=== PATIENT | female | born 1945 | race Caucasian/White ===

== ENCOUNTER → 2019-11-27 15:48 | Outpatient (BNVA) | payer MEDICARE, SELFPAY | PROVIDERS: Family Provider Family Medicine; Referring Provider Dermatology; Visit Provider Dermatology | DX: L40.9 Psoriasis, unspecified (principal); L85.3 Xerosis cutis; D18.01 Hemangioma of skin and subcutaneous tissue; L57.0 Actinic keratosis; L82.1 Other seborrheic keratosis | CPT/HCPCS: 17004; 99203; 99204 ==

== ENCOUNTER → 2020-01-28 09:42 | Outpatient (BNVA) | payer MEDICARE, SELFPAY | PROVIDERS: Family Provider Family Medicine; Visit Provider Dermatology | DX: L40.9 Psoriasis, unspecified (principal); L30.0 Nummular dermatitis | CPT/HCPCS: 87220; 99213 ==

== ENCOUNTER 2020-02-15 09:02 | Emergency (ER) | payer MEDICARE, SELFPAY ==
[2020-02-15 09:24] VITALS: BP 203/96; PULSE 54; RESP 18; TEMP 36.6; O2SAT 96; BMI 34.7
--- NOTE | 2020-02-15 09:48 | ED_ITS ---
HPI - Skin/Abscess/Foreign Bdy General: Chief complaint: Skin/Abscess/Foreign Body Stated complaint: knot on head/headache Time Seen by Provider: 02/15/20 09:38 History of Present Illness: HPI narrative: Comes in complain about a red painful rash that started on the top of her scalp is working way down the forehead right side a few days complaint: rash Onset (ago): day(s) Tetanus up to date: unsure Location: head Severity: mild Severity scale (1-10): 3 Quality: burning Pain Consistency: constant Relieving factors: none Exacerbating factors: none Context: none Associated symptoms: Reports no associated symptoms; Deny chills, fever(s), nausea or vomiting Review of Systems Const: Denies: fever(s), chills or body aches Eyes: Denies: change in vision or blurry vision ENMT: Denies: throat pain or nasal congestion Card: Reports: other (History of hypertension trolled); Denies: chest pain or dyspnea on exertion Resp: Denies: dyspnea, productive cough or non-productive cough GI: Denies: abdominal pain, nausea or vomiting Musc: Denies: extremity pain Skin/Breast: Reports: rash (Painful right side of the head scalp) Neuro: Denies: headache(s) Psych: Denies: anxiety or depression Oni/Lymph: Denies: easy bruising PFSH ED PFSH: Family History Mother Melanoma Social History Smoking and tobacco status: never smoked Alcohol intake: never History of recent travel: Yes ([place]) Out of state: Yes Physical Exam Const: COMMON NORMALS: no acute distress, average body habitus and patient oriented x3 HENMT: COMMON NORMALS: normocephalic HEAD & SCALP: normal to inspection and normocephalic FACE & SINUS: normal facial exam Eye: COMMON NORMALS: conjunctivae normal GENERAL EYE: appearance normal, both eyes and all related structures CONJUNCTIVA: Yes conjunctivae normal Neck/C-Spine: COMMON NORMALS: no JVD Chest: COMMONS NORMALS: normal inspection of the chest Resp: COMMON NORMALS: normal respiratory effort and clear to auscultation bilaterally AUSCULTATION: clear to auscultation bilaterally Cardio: COMMON NORMALS: no JVD, regular rate and regular rhythm RATE: regular rate RHYTHM: regular rhythm GI: COMMON NORMALS: Normal to inspection, nondistended, normoactive bowel sounds present Extremity: COMMON NORMALS: normal to inspection and full ROM Neuro: COMMON NORMALS: patient oriented x3 Skin: NARRATIVE SKIN EXAM: Is like rash red macular rash in clusters right side of the scalp extending down to the forehead no eye involvement noted Course Vital Signs: Vital signs: Vital Signs Temperature 97.9 F 02/15/20 09:24 Pulse Rate 58 L 02/15/20 10:08 Respiratory Rate 17 02/15/20 10:08 Blood Pressure 202/130 02/15/20 10:08 Pulse Oximetry 95 02/15/20 10:08 Discharge Plan Discharge Patient Disposition: Home Clinical Impression: Benign essential HTN Shingles Qualifiers: Herpes zoster complications: without complications Qualified Code(s): B02.9 - Zoster without complications Condition: Stable Prescriptions: New acyclovir 400 mg tablet 400 mg PO Q6H Qty: 28 RF: 0 tramadol 50 mg tablet 50 mg PO Q6H PRN (Reason: pain) Qty: 14 RF: 0 No Action propranolol 80 mg capsule,extended release 24 hr 80 mg PO DAILY RF: 0 furosemide 20 mg tablet 20 mg PO BID RF: 0 warfarin 2.5 mg tablet 2.5 mg PO DAILY RF: 0 allopurinol 300 mg tablet 300 mg PO DAILY RF: 0 atorvastatin 20 mg tablet 20 mg PO DAILY RF: 0 potassium chloride [Klor-Con 10] 10 mEq tablet extended release 10 meq PO DAILY RF: 0 irbesartan 75 mg tablet 75 mg PO DAILY RF: 0 fluticasone furoate 50 mcg/actuation blister with device INHALATION .PRN RF: 0 hydrocortisone 2.5 % cream 1 applic TOPICAL BID PRNRF: 0 mometasone 0.1 % solution 1 applic TOPICAL DAILY Qty: 60 RF: 2 triamcinolone acetonide 0.1 % ointment 1 applic TOPICAL BID Qty: 80 RF: 1 Discharge Orders: Discharge Order (Routine); Ordered 02/15/20 Ordered By: Jonny Zarate Referrals: Cassi Delarosa MD [Primary Care Provider] - Discharge Diet: Usual diet Discharge Activity: Increase activity as tolerated Patient Instructions: Herpes Zoster (ED), Chronic Hypertension (ED) Activity Restrictions/Additional Instructions: Follow-up with medical provider as directed. Take medications as prescribed. Return to the ER or your medical provider if condition worsens. Please read and understand discharge instructions. If any questions ask please. Monitor blood pressure closely while you had the shingles Discharge Date/Time: 02/15/20 10:09 Coding Level of Care Code ED Special Distribution Clerk for Hakeem Fwd Exam Comprehensive
[2020-02-15 10:03] VITALS: PULSE 55; RESP 17; O2SAT 95
[2020-02-15 10:08] VITALS: BP 202/130; PULSE 58; RESP 17; O2SAT 95
== END 2020-02-15 10:09 | disposition home or self-care (01) ==
PROVIDERS: Emergency Provider Nurse Practitioner Family; PCP Family Medicine
DX: B02.9 Zoster without complications (principal); I10 Essential (primary) hypertension; Z79.01 Long term (current) use of anticoagulants
CPT/HCPCS: 12345; 99281; 99282

== ENCOUNTER 2020-03-09 00:24 | Emergency (ER) | payer MEDICARE, SELFPAY ==
--- NOTE | 2020-03-09 00:34 | ECG_ITS ---
[facility] Test Date: 2020-03-09 Pat Name: Kadi Hernandez Department: Room: Gender: Female Leaf Blender: : 1945 Requested By: Tor Zapata Order Number: [id number] Al MD: DOMENICA CARDENAS Measurements Intervals [place] Rate: 52 P: 48 NC: 149 QRS: 50 QRSD: 96 T: 41 QT: 405 QTc: 380 Interpretive Statements SINUS BRADYCARDIA No previous ECG available for comparison Electronically Signed On 03-09-2020 20:15:11 TRACK LAYING EQUIPMENT OPERATOR by DOMENICA CARDENAS [email or web address]
--- NOTE | 2020-03-09 00:34 | XRR_ITS ---
PROCEDURE INFORMATION: Exam: XR Chest, 1 View Exam date and time: 03/09/2020 1:14 AM Age: 75 years old Clinical indication: Chest pain; Type not specified; Prior surgery; Surgery type: Hyst; Patient HX: Ruq abd pain; Additional info: Cp TECHNIQUE: Imaging protocol: XR of the chest Views: 1 view. COMPARISON: No relevant prior studies available. FINDINGS: Lungs: Unremarkable. No consolidation. Pleural space: Unremarkable. No pleural effusion. No pneumothorax. Heart/Mediastinum: The cardiac silhouette is enlarged. There is no other mediastinal widening. Bones/joints: Unremarkable. XR/XR chest 1V portable [id number] IMPRESSION: 1. Enlargement of the cardiac silhouette. 2. The lungs are clear.
[2020-03-09 00:42] VITALS: BP 219/101; PULSE 58; RESP 18; TEMP 36.4; O2SAT 98; BMI 35.6
--- NOTE | 2020-03-09 00:49 | CTR_ITS ---
PROCEDURE INFORMATION: Exam: CT Abdomen And Pelvis With Contrast Exam date and time: 03/09/2020 1:56 AM Age: 75 years old Clinical indication: Abdominal pain; Localized; Right upper quadrant (ruq); Prior surgery; Surgery date: 6+ months; Surgery type: Hyst; Additional info: Ruq pain TECHNIQUE: Imaging protocol: Computed tomography of the abdomen and pelvis with intravenous contrast. Radiation optimization: All CT scans at this facility use at least one of these dose optimization techniques: automated exposure control; mA and/or kV adjustment per patient size (includes targeted exams where dose is matched to clinical indication); or iterative reconstruction. Contrast material: VISI; Contrast volume: 95 ml; Contrast route: INTRAVENOUS (IV); COMPARISON: No relevant prior studies available. RADIATION DOSE METRICS: Total DLP (mGy-cm): 1490.46 FINDINGS: Liver: Normal. No mass. Gallbladder and bile ducts: The common bile duct is mildly prominent measuring 8 mm tapering to normal caliber within the pancreas. Pancreas: Normal. No ductal dilation. Spleen: Normal. No splenomegaly. Adrenal glands: Normal. No mass. Kidneys and ureters: There are strandy and hazy opacities present in the perinephric spaces bilaterally compatible with chronic scarring. Stomach and bowel: Unremarkable. No obstruction. No mucosal thickening. Appendix: The appendix is visualized and is normal in configuration. Intraperitoneal space: Unremarkable. No free air. No significant fluid collection. Vasculature: Unremarkable. No abdominal aortic aneurysm. Lymph nodes: Unremarkable. No enlarged lymph nodes. Urinary bladder: Unremarkable as visualized. Reproductive: Status post hysterectomy. Bones/joints: Unremarkable. No acute fracture. Soft tissues: Unremarkable. CT/CT abdomen pelvis w con* [id number] IMPRESSION: There are no acute abdominal findings. Radiation Dose CTDIVOL = (mGy): DLP = 1490.46 (mGy-cm)
--- NOTE | 2020-03-09 00:54 | W.ED.CHESTPA ---
HPI - Chest Pain General: Chief Complaint: Chest Pain Stated Complaint: cp Time Seen by Provider: 03/09/20 00:32 History of Present Illness: HPI narrative: 75-year-old female with no history of coronary disease. She does have a history of atrial fibrillation, and is on warfarin. She presents with epigastric and right upper quadrant pain that started around 4 PM yesterday. She says it is progressively worsened. She is vomited 7 times. She says she is not short of breath, but it hurts to take a deep breath. Her only belly surgery is a history of a hysterectomy. MD complaint: chest pain and other Pertinent past history: other Onset (ago): hour(s) Timing of current episode: constant and still present Prior episodes: Yes Onset: during rest Pain location: epigastric and other Pain radiation: none Severity: severe Quality: aching Relieving factors: nothing Exacerbating factors: movement Associated symptoms: Reports abdominal pain, nausea and vomiting; Deny dyspnea, fever(s) or palpitations Review of Systems Const: Denies: fever(s) Eyes: Denies: change in vision ENMT: Denies: odynophagia, epistaxis, post nasal drip or sinus pain Card: Denies: chest pain, palpitations or irregular heart rhythm Resp: Denies: dyspnea, productive cough, non-productive cough or wheezing GI: Reports: abdominal pain, nausea and vomiting; Denies: hematochezia or melena : Denies: dysuria, urinary frequency or hematuria Musc: Denies: neck pain or back pain Skin/Breast: Reports: rash; Denies: erythema Neuro: Denies: headache(s), dizziness or vertigo Psych: Denies: anxiety PFSH ED PFSH: Family History Mother Melanoma Social History Smoking and tobacco status: never smoked Alcohol intake: never History of recent travel: Yes ([place]) Out of state: Yes Physical Exam Const: GENERAL APPEARANCE: well developed and ill appearing ORIENTATION/CONSCIOUSNESS: Yes oriented to person, Yes oriented to place and Yes oriented to time HENMT: COMMON NORMALS: normocephalic, external ears normal and Normal external nose present HEAD & SCALP: normocephalic FACE & SINUS: normal facial exam NOSE: Normal external nose present and No nasal discharge present EXTERNAL EAR: Yes external ears normal Eye: COMMON NORMALS: Equal, round and reactive pupils present, EOMs intact bilaterally and conjunctivae normal EYELID: eyelids normal CONJUNCTIVA: Yes conjunctivae normal PUPIL: Yes Equal, round and reactive pupils present Neck/C-Spine: GENERAL: No tracheal deviation Chest: COMMONS NORMALS: normal inspection of the chest CHEST: No tenderness Resp: COMMON NORMALS: clear to auscultation bilaterally EFFORT & INSPECTION: No tachypneic, No respiratory distress, No retractions, No uses accessory muscles and No tracheal deviation AUSCULTATION: clear to auscultation bilaterally, no rhonchi, no wheezes and lung sounds not diminished Cardio: COMMON NORMALS: regular rate and regular rhythm RATE: regular rate RHYTHM: regular rhythm HEART SOUNDS: no murmurs PERIPHERAL PULSES: radial pulses present GI: INSPECTION: No abdominal distension AUSCULTATION: No Hyperactive bowel sounds present and No Hypoactive bowel sounds present PALPATION: Yes Tenderness to palpation present (GI) Details: RUQ, Yes Guarding due to palpation present (GI) and No Rigid due to palpation PERCUSSION: no dullness to percussion and no tympanic to percussion Neuro: SENSORIUM/ORIENTATION: Yes oriented to person, Yes oriented to place and Yes oriented to time Psych: COMMON NORMALS: mental status grossly normal Skin: NARRATIVE SKIN EXAM: Dry vesicular rash to forehead recent diagnosis of zoster. Course Vital Signs: Vital signs: Vital Signs Temperature 97.5 F L 03/09/20 00:42 Pulse Rate 48 L 03/09/20 03:56 Respiratory Rate 18 03/09/20 03:56 Blood Pressure 160/85 03/09/20 03:56 Pulse Oximetry 96 03/09/20 03:56 MDM - Chest Pain MDM Narrative: Medical decision making narrative: 75-year-old female with right upper quadrant pain and tenderness. She has also vomited. Pain nearly resolved at this point. Her nausea is resolved as well. White blood cell count is 11.7. Creatinine is 1.1. Other labs are benign. CT showed minimally increased size of common bile duct proximally with tapering distally, and no stone apparent. Ultrasound was performed and shows normal bile ducts, minimal/borderline wall thickening, no pericholecystic fluid, and no stones or sludge. She was tender over her gallbladder. With resolution of her pain, and benign labs and imaging, we will allow discharge. Close outpatient follow-up. Lab Data: Labs: Lab Results 03/09/20 03/09/20 03/09/20 Range/Units 00:55 00:55 00:55 WBC 11.7 H (4.0-10.0) 10^3/ uL RBC 3.97 L (4.1-5.3) 10^6/u L Hgb 12.4 (11.5-15.3) g/dL Hct 39.4 (37.0-47.0) % MCV 99.2 H (81-99) fL MCH 31.2 (28.0-34.0) pg MCHC 31.5 (30.0-36.0) g/dL RDW 14.3 (12.1-15.1) % Plt Count 229 (130-400) 10^3/c mm MPV 11.0 H (7.4-10.4) fL Neut % (Auto) 74.0 % Lymph % (Auto) 15.1 % [place] % (Auto) 7.8 % Eos % (Auto) 2.1 % Baso % (Auto) 0.7 % Neut # (Auto) 8.68 H (1.8-7.7) 10^3/u L Lymph # (Auto) 1.8 (0.8-4.8) 10^3/u L [place] # (Auto) 0.9 (0.2-0.9) 10^3/u L Eos # (Auto) 0.3 (0.0-0.8) 10^3/u L Baso # (Auto) 0.1 (0.0-0.1) 10^3/u L Nucleated RBC % (a uto) 0 % Nucleated RBCs # 0.0 /100WBC PT 25.10 H (12.1-14.9) SECO NDS INR 2.18 H (0.8-1.2) Sodium 139 (136-145) mmol/L Potassium 4.0 (3.5-5.1) mmol/L Chloride 101 (98-107) mmol/L Carbon Dioxide 27 (22-29) mmol/L Anion Gap 15.0 (5-19) BUN 13 (8-23) mg/dL Creatinine 1.1 H (0.5-0.9) mg/dL GFR Calculation Not Reportable Glucose 172 H (65-115) mg/dL Calculated Osmolal ity 292 (285-295) mOsm/k g Calcium 9.6 (8.5-10.5) mg/dL Total Bilirubin 0.2 (0.15-1.2) mg/dL AST 13 (0-32) U/L ALT 15 (0-33) U/L Alkaline Phosphata se 69 (35-105) IU/L Creatine Kinase 70 (26-192) U/L Troponin T Baselin e (0-10) ng/L NT-Pro-B Natriuret Pep 353 (0-450) pg/mL Total Protein 7.6 (6.6-8.7) g/dL Albumin 4.0 (3.5-5.2) g/dL Globulin 3.6 (1.3-4.6) g/dL Lipase 38 (13-60) U/L 03/09/20 Range/Units 00:55 WBC (4.0-10.0) 10^3/ uL RBC (4.1-5.3) 10^6/u L Hgb (11.5-15.3) g/dL Hct (37.0-47.0) % MCV (81-99) fL MCH (28.0-34.0) pg MCHC (30.0-36.0) g/dL RDW (12.1-15.1) % Plt Count (130-400) 10^3/c mm MPV (7.4-10.4) fL Neut % (Auto) % Lymph % (Auto) % [place] % (Auto) % Eos % (Auto) % Baso % (Auto) % Neut # (Auto) (1.8-7.7) 10^3/u L Lymph # (Auto) (0.8-4.8) 10^3/u L [place] # (Auto) (0.2-0.9) 10^3/u L Eos # (Auto) (0.0-0.8) 10^3/u L Baso # (Auto) (0.0-0.1) 10^3/u L Nucleated RBC % (a uto) % Nucleated RBCs # /100WBC PT (12.1-14.9) SECO NDS INR (0.8-1.2) Sodium (136-145) mmol/L Potassium (3.5-5.1) mmol/L Chloride (98-107) mmol/L Carbon Dioxide (22-29) mmol/L Anion Gap (5-19) BUN (8-23) mg/dL Creatinine (0.5-0.9) mg/dL GFR Calculation Glucose (65-115) mg/dL Calculated Osmolal ity (285-295) mOsm/k g Calcium (8.5-10.5) mg/dL Total Bilirubin (0.15-1.2) mg/dL AST (0-32) U/L ALT (0-33) U/L Alkaline Phosphata se (35-105) IU/L Creatine Kinase (26-192) U/L Troponin T Baselin e 13 H (0-10) ng/L NT-Pro-B Natriuret Pep (0-450) pg/mL Total Protein (6.6-8.7) g/dL Albumin (3.5-5.2) g/dL Globulin (1.3-4.6) g/dL Lipase (13-60) U/L Discharge Plan Discharge Patient Disposition: Home Clinical Impression: Biliary colic Condition: Stable Prescriptions: [place] 5-325 mg tablet 1 tab PO Q6H PRN (Reason: pain) Qty: 10 RF: 0 Zofran 4 mg tablet 4 mg PO Q6H PRN (Reason: nausea and vomiting) Qty: 10 RF: 0 No Action propranolol 80 mg capsule,extended release 24 hr 80 mg PO DAILY RF: 0 furosemide 20 mg tablet 20 mg PO BID RF: 0 warfarin 2.5 mg tablet 2.5 mg PO DAILY RF: 0 allopurinol 300 mg tablet 300 mg PO DAILY RF: 0 atorvastatin 20 mg tablet 20 mg PO DAILY RF: 0 potassium chloride [Klor-Con 10] 10 mEq tablet extended release 10 meq PO DAILY RF: 0 irbesartan 75 mg tablet 75 mg PO DAILY RF: 0 fluticasone furoate 50 mcg/actuation blister with device INHALATION .PRN RF: 0 hydrocortisone 2.5 % cream 1 applic TOPICAL BID PRNRF: 0 mometasone 0.1 % solution 1 applic TOPICAL DAILY Qty: 60 RF: 2 triamcinolone acetonide 0.1 % ointment 1 applic TOPICAL BID Qty: 80 RF: 1 acyclovir 400 mg tablet 400 mg PO Q6H Qty: 28 RF: 0 tramadol 50 mg tablet 50 mg PO Q6H PRN (Reason: pain) Qty: 14 RF: 0 Discharge Orders: Discharge Order (Routine); Ordered 03/09/20 Ordered By: Tor Heard Referrals: Cassi Delarosa MD [Primary Care Provider] - 4-7 days Discharge Diet: Advance as tolerated Discharge Activity: Increase activity as tolerated Patient Instructions: Biliary Colic (ED), Abdominal Pain (ED) Activity Restrictions/Additional Instructions: Return for worsening pain despite treatment, vomiting liquids or medications, fever greater than 100, yellowing of the skin or whites of the eyes, other concerning symptoms. Coding Level of Care Code ED Lead Software Engineer for Hakeem Fwd Exam Comprehensive
[2020-03-09] MEDS: ondansetron 2 mg/ML SDV 2 mL 4 MG IVP (00:59)
[2020-03-09] MEDS: ketorolac 30 mg/mL INJ IVP (01:00)
[2020-03-09 01:01] VITALS: RESP 18; O2SAT 97
[2020-03-09] MEDS: morphine 4 mg/mL SDV 1 mL IVP (01:01)
[2020-03-09 01:02] LABS: Basophils # 0.1 10^3/uL (0.0-0.1); Basophils % 0.7 %; Eosinophils # 0.3 10^3/uL (0.0-0.8); Eosinophils % 2.1 %; Hematocrit 39.4 % (37.0-47.0); Hemoglobin 12.4 g/dL (11.5-15.3); Lymphocytes # 1.8 10^3/uL (0.8-4.8); Lymphocytes % 15.1 %; Mean Corpuscular HGB Conc 31.5 g/dL (30.0-36.0); Mean Corpuscular Hemoglobin 31.2 pg (28.0-34.0); Mean Corpuscular Volume 99.2 fL (81-99); Monocytes # 0.9 10^3/uL (0.2-0.9); Monocytes % 7.8 %; Neutrophils # 8.68 10^3/uL (1.8-7.7); Nucleated Red Blood Cells % 0 %; Platelet Count 229 10^3/cmm (130-400); Red Blood Count 3.97 10^6/uL (4.1-5.3); Red Cell Distribution Width 14.3 % (12.1-15.1); White Blood Count 11.7 10^3/uL (4.0-10.0)
[2020-03-09 01:21] LABS: INR 2.18 (0.8-1.2)
[2020-03-09 01:26] LABS: Troponin(5th) Baseline 13 ng/L (0-10)
[2020-03-09 01:39] LABS: Alanine Aminotransferase 15 U/L (0-33); Alkaline Phosphatase 69 IU/L (35-105); Aspartate Amino Transferase 13 U/L (0-32); Blood Urea Nitrogen 13 mg/dL (8-23); Calcium 9.6 mg/dL (8.5-10.5); Carbon Dioxide 27 mmol/L (22-29); Chloride 101 mmol/L (98-107); Creatine Phosphokinase 70 U/L (26-192); Globulin 3.6 g/dL (1.3-4.6); Glucose 172 mg/dL (65-115); Lipase 38 U/L (13-60); NT Pro B Type Natriuretic Pept 353 pg/mL (0-450); Osmolality Calculated 292 mOsm/kg (285-295); Sodium 139 mmol/L (136-145); Total Bilirubin 0.2 mg/dL (0.15-1.2); Total Protein 7.6 g/dL (6.6-8.7)
[2020-03-09] MEDS: iodixanol 320 mg/mL 100mL Btl IV (02:06)
--- NOTE | 2020-03-09 02:46 | US_ITS ---
WS: [id number] ULTRASOUND ABDOMEN LIMITED CLINICAL INFORMATION: ruq pain COMPARISON: None. FINDINGS: Liver Size: Enlarged Craniocaudal length: 18.3 cm. Echogenicity: Coarse Surface nodularity: None. Mass (size and location): None. Bile ducts Intrahepatic ducts: Normal. Common bile duct diameter: 0.5 cm. Gallbladder Hydropic Gallstones: None. Gallbladder sludge: Present Gallbladder wall thickenin.1 mm Pericholecystic fluid: None. Sonographic Cao sign: Absent. Pancreas Normal as visualized. Right kidney: Normal. Hydronephrosis: None. Size: 10.0 cm x 4.7 cm x 4.1 cm. Abdominal aorta and IVC Visualized portions are normal. Ascites: None. US/US gall bladder 10119 IMPRESSION: 1. Hepatomegaly with diffuse fatty infiltration. 2. Hydropic gallbladder. Small amount of sludge in the gallbladder. Gallbladde r measures 9.3 x 4.9 x 4.6 cm mild gallbladder wall thickening measuring 4.1 mm . Gallbladder function can be further evaluated with HIDA scan. 3. No hydronephrosis in right kidney.
[2020-03-09 03:06] VITALS: BP 172/87; PULSE 49; RESP 16; O2SAT 96
[2020-03-09 03:56] VITALS: BP 160/85; PULSE 48; RESP 18; O2SAT 96
[2020-03-09 04:39] VITALS: RESP 18; O2SAT 96
[2020-03-09] MEDS: morphine 4 mg/mL SDV 1 mL 2 MG IVP (04:39)
[2020-03-09 04:44] VITALS: BP 149/79; PULSE 78; RESP 16; O2SAT 98
== END 2020-03-09 04:46 | disposition home or self-care (01) ==
PROVIDERS: Emergency Provider Emergency Medicine; PCP Family Medicine
DX: K80.50 Calculus of bile duct without cholangitis or cholecystitis without obstruction (principal); Z79.01 Long term (current) use of anticoagulants
CPT/HCPCS: 12345; 71045; 74177; 76705; 80053; 82550; 83690; 83880; 84484; 85025; 85610; 93005; 96374; 96375; 96376; 99283; 99284; J1885; J2270; J2405; Q9967

== ENCOUNTER → 2020-03-24 13:34 | Outpatient (BNVA) | payer MEDICARE, SELFPAY | PROVIDERS: PCP Family Medicine; Visit Provider Surgery | DX: Z11.59 Encounter for screening for other viral diseases (principal); K80.50 Calculus of bile duct without cholangitis or cholecystitis without obstruction | CPT/HCPCS: 87635 ==

== ENCOUNTER 2020-03-30 10:07 | Day surgery (SDC) | payer MEDICARE, SELFPAY ==
[2020-03-27 13:11] VITALS: BMI 36.6
[2020-03-30] VITALS (14 sets, daily range): BP systolic 137–170; BP diastolic 61–83; PULSE 46–60; RESP 14–21; TEMP 36.1–36.6; O2SAT 90–99
--- NOTE | 2020-03-30 10:23 | W.PM.OPSUD ---
Surgery/Procedure H&P Update DATE OF PROCEDURE: March 30, 2020 DATE H&P PERFORMED: 03/20/20 H&P UPDATE INFORMATION: I have reviewed H&P completed within last 30 days, I have examined patient prior to procedure and No changes to prior documentation PREOP DIAGNOSIS: Cholelithiasis PLANNED PROCEDURE: Operation Date: 03/30/20 11:45 Proposed Procedures p Laparoscopic poss open Cholecystectomy 08332 K80.50(Not Applicable) - Jamal Roe MD
--- NOTE | 2020-03-30 10:51 | ANES.PREANE2 ---
Pre-Anesthetic Assessment Pre-Anesthetic Assessment: Height/Weight: Height 1.57 m Weight 90.718 kg Temp Pulse Resp BP Pulse Ox 97.8 F 56 L 18 170/82 99 03/30/20 10:41 03/30/20 10:41 03/30/20 10:41 03/30/20 10:41 03/30/20 10:41 Preop Diagnosis: Cholelithiasis Proposed Procedure: Operation Date: 03/30/20 11:45 Proposed Procedures p Laparoscopic poss open Cholecystectomy 83117 K80.50(Not Applicable) - Jamal Roe MD Familial anesthetic complications: none Last intake: Intake Last Liquid Date 03/29/20 Last Liquid Time 05:30 Last Solid Date 03/29/20 Last Solid Time 05:30 Social: Social History: No alcohol and No tobacco Exam: Pre-Anes Outpt Exam: alert, oriented x 3, clear to auscultation bilaterally and regular rate & rhythm Airway: Cervical ROM: WNL MP: 2 Dentition: Full CV/HEM: CV/HEM: Afib (last took warfarin monday) and HTN Metabolic: Metabolic: Hyperlipidemia and Morbid obesity Musc/skel: Comments: gout Anesthetic Plan: ASA status: 3 Anesthesia: General Risk of > 500 ml blood loss (7ml/kg in children): No PFSH Anesthesia PFSH: Medical History (Updated 03/27/20 @ 13:11 by Leila Blandon) Atrial fibrillation Dyslipidemia Gout Melanoma Surgical History H/O colonoscopy 2016 H/O esophagogastroduodenoscopy 1977 History of carpal tunnel release History of removal of ovarian cyst S/P complete hysterectomy Family History Mother Melanoma Other CAD (coronary artery disease) Cancer Diabetes Denies family history of Anesthesia complication Bleeding disorder Social History Smoking and tobacco status: never smoked Alcohol intake: never Household members: spouse Marital status: Current occupational status: retired History of recent travel: Yes ([place]) Out of state: Yes Data Anesthesia Cardiac Studies: No Data to Display
[2020-03-30] MEDS: sodium chloride 0.9% 1,000 ML 30 ML IV ×2 (10:52→13:13)
--- NOTE | 2020-03-30 12:51 | P.OP_ITS ---
Operative Report Date of procedure: March 30, 2020 Pre-op Diagnosis: Cholelithiasis Post-op diagnosis: same Procedure Done: Laparoscopic cholecystectomy Specimens removed/disposition: Gallbladder Surgeon: Jamal Roe Anesthesia: General Condition: stable Disposition: PACU Procedure: The patient was taken to the operating room and was intubated under general anesthesia. After the antibiotic had been administered, the abdomen was prepped and draped in a sterile manner. Using a #15 blade, a 1 centimeter infraumbilical curvilinear incision was made and using an open Tye technique the peritoneal cavity was entered. A 10 millimeter port was placed and 15 millimeters of pneumoperitoneum was created. A 10 millimeter, 30 degrees scope was then introduced. Three 5 millimeter ports were placed in the epigastric, midclavicular and the anterior axillary line two fingerbreadths below the costal margin on the right side under the direct visualization. Ratcheted forceps were introduced into the lateral most port and was used to retract the fundus of the gallbladder cephalad and using forceps the infundibulum of the gallbladder was retracted laterally. Using L-hook cautery the peritoneum overlying the Calot's triangle was opened medially and laterally until the cystic duct and the cystic artery were skeletonized. During skeletization there was bleeding from the cystic artery which was controlled with placement of a clip. Dissection was carried along the body of the gallbladder and after ensuring critical view of safety, 4 clips applied on the cystic duct and 3 clips applied on the cystic artery and cut leaving, 3 clips on the remaining portion of the duct and 2 clips on the remaining portion of the artery. The rest of the gallbladder was dissected off the liver using L-hook cautery. There was no bleeding or bile le aking noted from the gallbladder fossa and the clips appeared to be in place. An EndoCatch bag was introduced to remove the gallbladder. All the ports were removed under direct visualization and there was no bleeding noted from the port sites. The fascia of the umbilicus was closed using [id number] 0 Vicryl sutures and the subcutaneous tissue was approximated using 3-0 Vicryl sutures. The skin at all four ports were closed using 4-0 Monocryl and Dermabond. A total of 10 millimeters of 0.5% Marcaine was infiltrated around the port sites. The patient was stable throughout the procedure.
[2020-03-30] MEDS: fentaNYL 50 mcg/mL INJ 2mL IVP (13:18)
--- NOTE | 2020-03-30 13:52 | SUR.PHASEI ---
1255 PT TO PACU AWAKES TO VOICE RESPONDS VERBALLY AND APPROPRIATELY TO COMMANDS , WEAK COUGH, PT HOB ELEVATED TO 40 DEGREES, PT C/O OF PAIN OF 8 OFIRMEV 1 GRAM IVPB ORDERED BY MILAGRO WILKS AT BEDSIDE 1315 PT AWAKE ALERT C/O OF (IT IS HARD TO BREATH) PT ON 3LNC PT ENCOURAGED TO COUGH , BILAT LUNGS CLEAR WITH DIMINISHED BASES WITH EXP CRACKLES. VSS ABD SOFT WITH 4 SITES D/I. IV PATENT DR FOLEY AT BEDSIDE PT STATES SHE TAKES INHALER AT HOME ALBUTERAL NEB STARTED FOR PT COMFORT, AT 8L O2 1318 PT COUGHS OCC AND C/O OF PAIN OF 8 SEE PAIN MED GIVEN
--- NOTE | 2020-03-30 13:56 | SUR.PHASEI ---
CORRECTION TO ABOVE NOTE NOZZLE CEMENT SPRAYER HELPER B DREW
[2020-03-30] MEDS: HYDROcodone-acetaminophen 5-325 mg Tablet 1 TAB PO (14:06)
--- NOTE | 2020-03-30 15:14 | ANE.PACU2 ---
Inpatient post-anesthesia follow up: Airway intact: Yes Vital signs: Temperature 97.0 F Pulse Rate 49 Respiratory Rate 18 Blood Pressure 137/76 Pulse Oximetry 94 Oxygen Delivery Me thod Nasal Cannula Oxygen Flow Rate 3 Fraction of Inspir ed Oxygen Hydration adequate: Yes Nausea and vomiting: No Pain level: 2 Mental status: Baseline
== END 2020-03-30 14:37 | disposition home or self-care (01) ==
PROVIDERS: PCP Family Medicine; Visit Provider Surgery
PROC: 0FT44ZZ Resection of Gallbladder, Percutaneous Endoscopic Approach (ICD-10-PCS; CPT 47562; principal; 2020-03-30 11:45)
DX: K80.10 Calculus of gallbladder with chronic cholecystitis without obstruction (principal); I48.91 Unspecified atrial fibrillation; Z79.01 Long term (current) use of anticoagulants; I10 Essential (primary) hypertension; E66.01 Morbid (severe) obesity due to excess calories; Z68.36 Body mass index [BMI] 36.0-36.9, adult; E78.5 Hyperlipidemia, unspecified
CPT/HCPCS: 47562; 12345; 88304; 96365; J0131; J0690; J1100; J2250; J2405; J2704; J2710; J3010; J3490; J7030; J7611

== ENCOUNTER 2020-05-01 22:34 | Emergency (ER) | payer MEDICARE, SELFPAY ==
[2020-05-01 22:36] VITALS: BP 171/92; PULSE 120; RESP 17; TEMP 36.4; O2SAT 96; BMI 34.7
--- NOTE | 2020-05-01 22:51 | XRR_ITS ---
PROCEDURE INFORMATION: Exam: XR Chest, 1 View Exam date and time: 05/01/2020 11:18 PM Age: 75 years old Clinical indication: Chest pain; Additional info: Chest pain, afib TECHNIQUE: Imaging protocol: XR of the chest Views: 1 view. COMPARISON: CR XR chest 1V portable [id number] 03/09/2020 1:41 AM FINDINGS: Lungs: Linear atelectasis or scar in the lingula. The lungs are otherwise clear. Pleural space: Unremarkable. No pleural effusion. No pneumothorax. Heart/Mediastinum: Mild cardiomegaly. Bones/joints: Unremarkable. XR/XR chest 1V portable [id number] IMPRESSION: Cardiomegaly without pulmonary edema.
--- NOTE | 2020-05-01 22:52 | ECG_ITS ---
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 Measurements Intervals Maybee Rate: 68 P: 56 SD: 150 QRS: 59 QRSD: 75 T: 53 QT: 365 QTc: 391 Interpretive Statements SINUS RHYTHM NONSPECIFIC T-WAVE ABNORMALITY Compared to ECG 03/09/2020 00:38:01 T-wave abnormality now present Sinus bradycardia no longer present Electronically Signed On 05-02-2020 16:42:56 STOVE CLEANER by Julian Pitts M.D. [id number]
--- NOTE | 2020-05-01 22:57 | W.ED.CHESTPA ---
HPI - Chest Pain General: Chief Complaint: Chest Pain Stated Complaint: believes she's experiencing AFIB Time Seen by Provider: 05/01/20 22:51 Source: patient Mode of arrival: ambulatory Limitations: no limitations History of Present Illness: HPI narrative: Mrs. Hernandez is a nice 75-year-old female who comes in with a complaint of palpitations. Patient states she is had this sensation many times in the past secondary to atrial fibrillation. Today she stated her heart rate spontaneously went into this about 2 PM. Patient states she has had this last short time before but also longer periods of time. She stated today she had chest discomfort described as a tightness. She denies any nausea vomiting, diaphoresis or worsening with exertion. Patient states most of the time she can cough or do something to help slow her heart down and her heart will go out of A. fib but she has been unable to do so today. She denies denies any syncope, or any other complaints or concerns. Associated symptoms: Reports dyspnea and palpitations; Deny abdominal pain, diaphoresis, fever(s), nausea, syncope or vomiting Review of Systems Const: Denies: fever(s), chills, body aches, fatigue, malaise or diaphoresis Eyes: Denies: change in vision, blurry vision, photophobia, eye discomfort, eye discharge, eye redness or yellow eyes ENMT: Denies: throat pain, odynophagia, hoarseness, swelling of lips/tongue, ear or mastoid pain, ear discharge, change in hearing or nasal discharge Card: Reports: chest pain, palpitations and irregular heart rhythm; Denies: edema, lightheadedness, syncope, pre-syncope, dyspnea on exertion or orthopnea Resp: Reports: dyspnea; Denies: productive cough, non-productive cough, wheezing, hemoptysis or chest congestion GI: Denies: abdominal pain, nausea, vomiting, hematemesis, coffee ground emesis, heartburn, diarrhea, constipation, GI cramping, hematochezia or melena : Denies: flank pain, dysuria, urinary frequency, urinary urgency or hematuria Musc: Denies: neck pain, back pain, extremity pain, extremity swelling, joint pain, joint swelling, joint redness, joint warmth or joint stiffness Skin/Breast: Denies: rash, pruritus, erythema, skin pain or skin tenderness Neuro: Denies: headache(s), numbness in extremities, weakness in extremities, sensory changes, lack of coordination, difficulty walking, dizziness, vertigo, confusion, Slurred speech present or seizure-like activity Oni/Lymph: Denies: easy bruising, easy bleeding, petechiae, purpura or enlarged lymph nodes All/Imm: Denies: urticaria, throat swelling, tongue swelling, facial swelling or acute wheezing PFSH ED PFSH: Medical History Atrial fibrillation Dyslipidemia Gout Melanoma Surgical History H/O colonoscopy 2016 H/O esophagogastroduodenoscopy 1977 History of carpal tunnel release History of removal of ovarian cyst S/P complete hysterectomy Status post laparoscopic cholecystectomy (03/30/20) Family History Mother Melanoma Other CAD (coronary artery disease) Cancer Diabetes Denies family history of Anesthesia complication Bleeding disorder Social History Smoking and tobacco status: never smoked Alcohol intake: never Household members: spouse Marital status: Current occupational status: retired History of recent travel: Yes ([place]) Out of state: Yes Physical Exam Const: COMMON NORMALS: no acute distress, patient oriented x3, no limitations and alert GENERAL APPEARANCE: cooperative HENMT: COMMON NORMALS: normocephalic, atraumatic, external ears normal, EAC's normal and Normal external nose present HEAD & SCALP: normal to inspection, normocephalic and atraumatic FACE & SINUS: normal facial exam and face symmetric NOSE: Normal external nose present and Normal nares present EXTERNAL EAR: Yes external ears normal EXTERNAL AUDITORY CANAL: EAC's normal MOUTH: Normal oral and palatal mucosa present, lip normal and tongue normal Eye: COMMON NORMALS: Equal, round and reactive pupils present and conjunctivae normal GENERAL EYE: appearance normal, both eyes and all related structures ALIGNMENT: Yes alignment normal PERIORBITAL: periorbital findings normal EYELID: eyelids normal CONJUNCTIVA: Yes conjunctivae normal SCLERA: sclerae normal PUPIL: Yes Equal, round and reactive pupils present Neck/C-Spine: COMMON NORMALS: full ROM, no lymphadenopathy, supple, no meningeal signs and no JVD GENERAL: Yes normal visual inspection and Yes trachea midline Chest: COMMONS NORMALS: normal inspection of the chest and normal palpation of entire chest wall Resp: COMMON NORMALS: normal respiratory effort, No retractions, No use of accessory muscles and clear to auscultation bilaterally EFFORT & INSPECTION: Yes able to speak in complete sentences and Yes symmetric chest movement AUSCULTATION: clear to auscultation bilaterally, no crackles, no rales, no rhonchi and no wheezes Cardio: COMMON NORMALS: no JVD, regular rate, regular rhythm, S1 normal heart sound present and S2 normal heart sound present RATE: regular rate RHYTHM: regular rhythm HEART SOUNDS: S1 normal heart sound present, S2 normal heart sound present, no click, no gallops, no murmurs and no rubs GI: COMMON NORMALS: Soft to palpation and No hepatosplenomegaly present PALPATION: Yes Soft to palpation, No Tenderness to palpation present (GI), No Guarding due to palpation present (GI), No Rigid due to palpation, Yes No hepatosplenomegaly present, No Hernia present, No Palpable mass present and No Pulsatile mass present : COMMON NORMALS: Yes no CVA tenderness BLADDER/KIDNEY EXAM: Yes no CVA tenderness EXTERNAL FEMALE EXAM: No Hernia present Back/Pelvis: COMMON NORMALS: no CVA tenderness, thoracic and lumbar spine normal to inspection, no thoracic nor lumbar tenderness and thoraco-lumbar ROM normal Extremity: COMMON NORMALS: normal to inspection, full ROM, capillary refill normal, no joint enlargement, no clubbing, cyanosis or edema and no calf tenderness Neuro: COMMON NORMALS: patient oriented x3, CN's II-XII intact bilaterally, moves all extremities, no focal motor deficits and no sensory deficits noted SENSORIUM/ORIENTATION: Yes alert MENINGEAL SIGNS: Yes no meningeal signs SPEECH: speech normal Psych: COMMON NORMALS: mental status grossly normal, Normal thought process present, cooperative, normal affect, speech normal and activity/motor behavior normal SPEECH: Yes normal speech THOUGHT PROCESS: Normal thought process present Skin: COMMON NORMALS: no rashes or lesions noted, turgor normal, no jaundice, no petechiae and no mottling GENERAL SKIN EXAM: no rashes or lesions noted and turgor normal Course Vital Signs: Vital signs: Vital Signs Temperature 97.6 F 05/01/20 22:36 Pulse Rate 60 05/02/20 00:27 Respiratory Rate 24 H 05/02/20 00:27 Blood Pressure 126/78 05/02/20 00:27 Pulse Oximetry 94 05/02/20 00:27 MDM - Chest Pain MDM Narrative: Medical decision making narrative: I had an extensive discussion with the patient about staying for further evaluation care which she declined. Her symptoms resolved completely when she converted out of atrial fibrillation back into her sinus rhythm. Patient attributes all of her symptoms to the A. fib. Advised the patient though that there could be things such as coronary blockage could cause this. I have explained all this to her in layman's terms and answer her questions but despite my trying to encourage her to stay the patient declines and wants to be discharged. She does understand she is free to return here at any time should she change her mind. Lab Data: Attestation: I reviewed the patient's lab results. Labs: Lab Results 05/01/20 05/01/20 05/01/20 Range/Units 23:19 23:19 23:19 WBC 9.4 (4.0-10.0) 10^3/ uL RBC 4.14 (4.1-5.3) 10^6/u L Hgb 12.7 (11.5-15.3) g/dL Hct 40.7 (37.0-47.0) % MCV 98.3 (81-99) fL MCH 30.7 (28.0-34.0) pg MCHC 31.2 (30.0-36.0) g/dL RDW 14.6 (12.1-15.1) % Plt Count 225 (130-400) 10^3/c mm MPV 12.2 H (7.4-10.4) fL Neut % (Auto) 59.1 % Lymph % (Auto) 24.9 % Zavala % (Auto) 12.3 % Eos % (Auto) 2.6 % Baso % (Auto) 0.7 % Neut # (Auto) 5.52 (1.8-7.7) 10^3/u L Lymph # (Auto) 2.3 (0.8-4.8) 10^3/u L Zavala # (Auto) 1.2 H (0.2-0.9) 10^3/u L Eos # (Auto) 0.2 (0.0-0.8) 10^3/u L Baso # (Auto) 0.1 (0.0-0.1) 10^3/u L Nucleated RBC % (a uto) 0 % Nucleated RBCs # 0.0 /100WBC PT 20.80 H (12.1-14.9) SECO NDS INR 1.72 H (0.8-1.2) Sodium 142 (136-145) mmol/L Potassium 3.8 (3.5-5.1) mmol/L Chloride 103 (98-107) mmol/L Carbon Dioxide 26 (22-29) mmol/L Anion Gap 16.8 (5-19) BUN 16 (8-23) mg/dL Creatinine 0.9 (0.5-0.9) mg/dL GFR Calculation Not Reportable Glucose 150 H (65-115) mg/dL Calculated Osmolal ity 298 H (285-295) mOsm/k g Calcium 9.2 (8.5-10.5) mg/dL Magnesium 1.9 (1.7-2.3) mg/dL Total Bilirubin 0.3 (0.15-1.2) mg/dL AST 14 (0-32) U/L ALT 13 (0-33) U/L Alkaline Phosphata se 80 (35-105) IU/L Troponin T Baselin e (0-10) ng/L Total Protein 7.3 (6.6-8.7) g/dL Albumin 3.9 (3.5-5.2) g/dL Globulin 3.4 (1.3-4.6) g/dL TSH 2.71 (0.27-4.20) uIU/ mL 05/01/20 Range/Units 23:19 WBC (4.0-10.0) 10^3/ uL RBC (4.1-5.3) 10^6/u L Hgb (11.5-15.3) g/dL Hct (37.0-47.0) % MCV (81-99) fL MCH (28.0-34.0) pg MCHC (30.0-36.0) g/dL RDW (12.1-15.1) % Plt Count (130-400) 10^3/c mm MPV (7.4-10.4) fL Neut % (Auto) % Lymph % (Auto) % Zavala % (Auto) % Eos % (Auto) % Baso % (Auto) % Neut # (Auto) (1.8-7.7) 10^3/u L Lymph # (Auto) (0.8-4.8) 10^3/u L Zavala # (Auto) (0.2-0.9) 10^3/u L Eos # (Auto) (0.0-0.8) 10^3/u L Baso # (Auto) (0.0-0.1) 10^3/u L Nucleated RBC % (a uto) % Nucleated RBCs # /100WBC PT (12.1-14.9) SECO NDS INR (0.8-1.2) Sodium (136-145) mmol/L Potassium (3.5-5.1) mmol/L Chloride (98-107) mmol/L Carbon Dioxide (22-29) mmol/L Anion Gap (5-19) BUN (8-23) mg/dL Creatinine (0.5-0.9) mg/dL GFR Calculation Glucose (65-115) mg/dL Calculated Osmolal ity (285-295) mOsm/k g Calcium (8.5-10.5) mg/dL Magnesium (1.7-2.3) mg/dL Total Bilirubin (0.15-1.2) mg/dL AST (0-32) U/L ALT (0-33) U/L Alkaline Phosphata se (35-105) IU/L Troponin T Baselin e 17 H (0-10) ng/L Total Protein (6.6-8.7) g/dL Albumin (3.5-5.2) g/dL Globulin (1.3-4.6) g/dL TSH (0.27-4.20) uIU/ mL Imaging Data^: CXR: Attestation: I personally reviewed and interpreted this imaging study as follows: My impression: No acute cardiopulmonary findings. EKG Data^: EKG 1: Attestation: I personally reviewed and interpreted this EKG as follows: EKG interpretation date: 05/01/20 EKG interpretation time: 23:01 Interpretation: Atrial fibrillation with rapid ventricular response at 116 beats a minute, normal QTC, nonspecific ST-T wave changes. EKG 2: Attestation: I personally reviewed and interpreted this EKG as follows: EKG interpretation date: 05/01/20 EKG interpretation time: 23:27 Interpretation: Normal sinus rhythm at 68 beats a minute, no blocks, normal intervals, no acute ST or T wave changes. Discharge Plan Discharge Patient Disposition: Home Clinical Impression: Atrial fibrillation with rapid ventricular response Condition: Stable Prescriptions: No Action propranolol 80 mg capsule,extended release 24 hr 80 mg PO DAILY RF: 0 furosemide 20 mg tablet 20 mg PO BID RF: 0 warfarin 2.5 mg tablet 2.5 mg PO DAILY RF: 0 allopurinol 300 mg tablet 300 mg PO DAILY RF: 0 atorvastatin 20 mg tablet 20 mg PO DAILY RF: 0 potassium chloride [Klor-Con 10] 10 mEq tablet extended release 10 meq PO DAILY RF: 0 irbesartan 75 mg tablet 75 mg PO DAILY RF: 0 Arnuity Ellipta 50 mcg/actuation blister with device 1 inh INHALATION .PRN RF: 0 hydrocortisone 2.5 % cream 1 applic TOPICAL BID PRN (Reason: Itching) RF: 0 ondansetron HCl [Zofran] 4 mg tablet 4 mg PO Q6H PRN (Reason: nausea and vomiting) Qty: 10 RF: 0 Zofran 4 mg tablet 4 mg PO Q6H PRN (Reason: nausea and vomiting) Qty: 20 RF: 0 Colace 100 mg capsule 100 mg PO BID Qty: 30 RF: 0 Discharge Orders: Discharge ED (Routine); Ordered 05/02/20 Ordered By: Valerie Thurston Referrals: Cassi Delarosa MD [Primary Care Provider] - 1-3 days Discharge Diet: Advance as tolerated Discharge Activity: Increase activity as tolerated Patient Instructions: Atrial Fibrillation (ED), Chest Pain (ED) Activity Restrictions/Additional Instructions: Please return to the ER immediately for any of the signs or symptoms listed on your discharge instruction sheets, worsening/changing of your symptoms, you are not getting better as quickly as expected, or for ANY other cause or concerns. You have been offered further evaluation and care here to include admission to further evaluate your heart but you have declined. Of course heart problems can be life-threatening so if your symptoms return, you pass out or nearly pass out, you develop chest pain, or you simply change your mind you are more than welcome to return here at any time for recheck and further evaluation and care. Be certain to follow-up with your doctor as soon as possible for recheck. Coding Level of Care Code ED Product Development Worker for Hakeem Sebastian
[2020-05-01 23:21] VITALS: BP 137/83; PULSE 65; RESP 23; O2SAT 96
--- NOTE | 2020-05-01 23:28 | PC.NURSE ---
clarified Diltiazem with ED physician. ED physician stated do not give med as pt has converted back to normal sinus rhythm.
[2020-05-01 23:34] LABS: Basophils # 0.1 10^3/uL (0.0-0.1); Basophils % 0.7 %; Eosinophils # 0.2 10^3/uL (0.0-0.8); Eosinophils % 2.6 %; Hematocrit 40.7 % (37.0-47.0); Hemoglobin 12.7 g/dL (11.5-15.3); Lymphocytes # 2.3 10^3/uL (0.8-4.8); Lymphocytes % 24.9 %; Mean Corpuscular HGB Conc 31.2 g/dL (30.0-36.0); Mean Corpuscular Hemoglobin 30.7 pg (28.0-34.0); Mean Corpuscular Volume 98.3 fL (81-99); Mean Platelet Volume 12.2 fL (7.4-10.4); Monocytes # 1.2 10^3/uL (0.2-0.9); Monocytes % 12.3 %; Neutrophils # 5.52 10^3/uL (1.8-7.7); Neutrophils % 59.1 %; Nucleated Red Blood Cells % 0 %; Platelet Count 225 10^3/cmm (130-400); Red Blood Count 4.14 10^6/uL (4.1-5.3); Red Cell Distribution Width 14.6 % (12.1-15.1); White Blood Count 9.4 10^3/uL (4.0-10.0)
[2020-05-01 23:47] LABS: INR 1.72 (0.8-1.2)
[2020-05-01 23:53] LABS: Troponin(5th) Baseline 17 ng/L (0-10)
[2020-05-02 00:01] LABS: Alanine Aminotransferase 13 U/L (0-33); Albumin Level 3.9 g/dL (3.5-5.2); Alkaline Phosphatase 80 IU/L (35-105); Anion Gap 16.8 (5-19); Aspartate Amino Transferase 14 U/L (0-32); Blood Urea Nitrogen 16 mg/dL (8-23); Calcium 9.2 mg/dL (8.5-10.5); Carbon Dioxide 26 mmol/L (22-29); Chloride 103 mmol/L (98-107); Globulin 3.4 g/dL (1.3-4.6); Glucose 150 mg/dL (65-115); Magnesium 1.9 mg/dL (1.7-2.3); Osmolality Calculated 298 mOsm/kg (285-295); Potassium 3.8 mmol/L (3.5-5.1); Sodium 142 mmol/L (136-145); Thyroid Stimulating Hormone 2.71 uIU/mL (0.27-4.20); Total Bilirubin 0.3 mg/dL (0.15-1.2); Total Protein 7.3 g/dL (6.6-8.7)
[2020-05-02 00:27] VITALS: BP 126/78; PULSE 60; RESP 24; O2SAT 94
== END 2020-05-02 00:27 | disposition home or self-care (01) ==
PROVIDERS: Emergency Provider Emergency Medicine; PCP Family Medicine
DX: I48.20 Chronic atrial fibrillation, unspecified (principal); Z79.01 Long term (current) use of anticoagulants; E78.5 Hyperlipidemia, unspecified
CPT/HCPCS: 12345; 71045; 80053; 83735; 84443; 84484; 85025; 85610; 93005; 96374; 99281; 99283

== ENCOUNTER → 2020-05-13 11:45 | Outpatient (BNVA) | payer MEDICARE, SELFPAY | PROVIDERS: PCP Family Medicine; Visit Provider Family Medicine | DX: E78.5 Hyperlipidemia, unspecified (principal); I48.91 Unspecified atrial fibrillation; G25.0 Essential tremor; M1A.9XX0 Chronic gout, unspecified, without tophus (tophi) | CPT/HCPCS: 80053; 80061; 83721; 84443; 84550; 85025; 85610 ==

== ENCOUNTER → 2020-05-20 11:33 | Outpatient (BNVA) | payer MEDICARE, SELFPAY | PROVIDERS: PCP Family Medicine; Visit Provider Family Medicine | DX: I48.91 Unspecified atrial fibrillation (principal) | CPT/HCPCS: 85610 ==

== ENCOUNTER → 2020-05-27 10:00 | Outpatient (BNVA) | payer MEDICARE, SELFPAY | PROVIDERS: PCP Family Medicine; Visit Provider Family Medicine | DX: I48.91 Unspecified atrial fibrillation (principal) | CPT/HCPCS: 85610 ==

== ENCOUNTER → 2020-06-10 08:44 | Outpatient (BNVA) | payer MEDICARE, SELFPAY | PROVIDERS: PCP Family Medicine; Visit Provider Family Medicine | DX: I48.91 Unspecified atrial fibrillation (principal) | CPT/HCPCS: 85610 ==

== ENCOUNTER 2020-10-29 09:36 | Outpatient (CLI) | payer MEDICARE, SELFPAY ==
[2020-10-29 10:07] VITALS: BMI 36.6
--- NOTE | 2020-10-29 10:15 | ECG_ITS ---
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 Interpretive Statements NAME OF STUDY: LEXISCAN SESTAMIBI STRESS TEST INDICATION: Chest Pain PROCEDURE: At the baseline, the blood pressure was 228/106 mmHg, oxygen saturation 97% with a heart rate of 68 bpm. The electrocardiogram showed normal sinus rhythm, normal axis with normal ST-T's. The Lexiscan was infused over a period of 20 seconds. A total of 0.4 milligrams of Lexiscan was infused. The stress phase was continued for a total of 5 minutes. Heart rate at the end of the stress phase was 77 bpm, oxygen saturation 97% with a blood pressure of 214/99 mmHg. The EKG at the peak infusion revealed no significant ST-T wave changes. Sestamibi was injected 20 seconds after the Lexiscan infusion. Blood pressure at the end of the recovery phase was 199/88 mmHg, oxygen saturation 97% with a heart rate of 77 beats per minute. CONCLUSION: 1. No significant EKG changes with the LexiScan infusion 2. No LexiScan induced chest pain or cardiac arrhythmia. 3. Baseline hypertension with normal blood pressure and heart rate response. 4. Sestamibi/sestamibi perfusion scan pending; see separate report. RESULTS TO TELLY CHRISTOPHER Electronically Signed On 11-02-2020 13:11:21 CDT by Malgorzata Thurston M.D. [id number]
--- NOTE | 2020-10-29 10:16 | NMCV_ITS ---
NM airam perf SPECT r/s* [id number] Kadi Hernandez Age: 75 Gender: F : 1945 Exam Date: 10/29/2020 11:02 Ordering Phys: Malgorzata Thurston MD ([email or web address]) Technologist: JIE Conteh Exam Location: [facility] Indications: CHEST PAIN; ATHEROSCLEROTIC HEART DISEASE; A FIB STRESS TEST Please see separate stress test report in [facility] for full findings IMAGE PROTOCOL Rest/Stress 1 Lexiscan Day Radiopharmaceutical Dose (mCi) Administration Site Administered by Rest: Tc-99m 11.0 IV JIE Conteh Sestamibi Stress:Tc-99m 32.7 IV JIE Espan[place] Sestamibi Rest: 29-Oct-2020 60 Discovery 630 Stress: 29-Oct-2020 30 Discovery 630 0.4mg Lexiscan. Images obtained in supine and prone position. SPECT RESULTS Technical Quality: Excellent Raw Data Analysis: Normal Image Corrections: No attenuation or motion correction applied Summed Stress Score: 0 Summed Rest Score: 0 Summed Difference Score: 0 PERFUSION FINDINGS Small size perfusion abnormality of mild to moderate severity of mid anterior and apical septal marquez with somewhat improved tracer uptake on stress images. FUNCTIONAL RESULTS (calculated via Gated SPECT) Stress Image LV EF (%): 75 Stress EDV (mL):77 TID: 0.9 Stress ESV (mL):19 FUNCTIONAL FINDINGS: The left ventricle is normal in size. Transient Ischemia Dilatation of 0.9. There is normal left ventricular systolic function. The left ventricular ejection fraction is normal with a value of 75%. There is normal left ventricular wall thickening with no regional wall motion abnormality. Normal end-diastolic end-systolic volumes. IMPRESSIONS 1. Myocardial perfusion imaging is normal. Breast attenuation artifact noted in mid anterior and apical septal marquez. 2. Overall left ventricular systolic function is normal without regional wall motion abnormalities. 3. The left ventricular ejection fraction is normal with a value of 75%. 4. No coronary ischemia based on the study. Malgorzata Thurston MD (Electronically Signed) Final Date: 02 November 2020 13:08 S
[2020-10-29] MEDS: regadenoson 0.4 Mg/5 ml Syringe IVP (11:42)
[2020-10-29 12:09] VITALS: BP 199/88; PULSE 83
--- NOTE | 2020-10-29 13:52 | USCV_ITS ---
David Kadi Age: 75 Gender: F : 1945 Exam Date: 10/29/2020 14:19 Ordering Phys: Malgorzata Thurston MD ([email or web address]) Technologist: Exam Location: [facility] [place] Indication: CHEST PAIN BP: 200 / 100 HR: 78 Rhythm: Sinus Technical Quality: Adequate MEASUREMENTS (Male / Female) Normal Values 2D ECHO LV Diastolic Diameter PLAX 4.3 cm 4.2 - 5.9 / 3.9 - 5.3 cm LV Systolic Diameter PLAX 2.6 cm IVS Diastolic Thickness 1.1 cm 0.6 - 1.0 / 0.6 - 0.9 cm IVS Systolic Thickness 1.2 cm LVPW Diastolic Thickness 1.1 cm 0.6 - 1.0 / 0.6 - 0.9 cm LVPW Systolic Thickness 1.3 cm LVOT Diameter 2.3 cm LV Ejection Fraction 2D Teich 70.0 % LV Ejection Fraction MOD 2C 68.4 % LV Ejection Fraction 2C AL 68.4 % LA Diameter 3.5 cm LA Width 4.7 cm LA Height 5.4 cm RA Width 4.2 cm RA Height 4.7 cm Aorta at Sinotubular Diameter 2.5 cm DOPPLER AV Peak Velocity 171.0 cm/s LVOT Peak Velocity 104.0 cm/s AV Area Cont Eq vti 2.5 cm squared AV Area Cont Eq pk 2.5 cm squared MV Area PHT 5.0 cm squared Mitral E to A Ratio 1.2 MV E' Velocity 58.0 cm/s Mitral E to MV E' Ratio 13.5 Mitral E to LV E' Lateral Ratio 12.1 Mitral E to LV E' Septal Ratio 15.5 TR Peak Velocity 339.0 cm/s TR Peak Gradient 46.0 mmHg TV Peak E Velocity 121.0 cm/s PV Peak Velocity 123.0 cm/s FINDINGS Left Ventricle Normal left ventricular size, systolic function and wall thickness, with no regional wall motion abnormalities. Left ventricular ejection fraction is estimated at 70-75 %. Grade II diastolic dysfunction, moderately elevated filling pressures. Right Ventricle Normal right ventricular size and systolic function. Right ventricular systolic pressure 49 mmHg. Right Atrium Normal right atrial size. Left Atrium Moderately increased left atrial size. Mitral Valve Moderately thickened mitral valve. No mitral valve stenosis. No mitral valve regurgitation. Aortic Valve Aortic valve not well visualized. No aortic valve stenosis. No aortic valve regurgitation. Tricuspid Valve Structurally normal tricuspid valve. Trace tricuspid valve regurgitation. Pulmonic Valve Pulmonic valve not well visualized. Pericardium No pericardial effusion. Aorta Normal size aortic root and proximal ascending aorta. CONCLUSIONS 1. Normal left ventricular size, systolic function and wall thickness, with no regional wall motion abnormalities. Left ventricular ejection fraction is estimated at 70-75 %. Grade II diastolic dysfunction, moderately elevated filling pressures. 2. Normal right ventricular size and systolic function. 3. Pulmonary artery pressure estimated at 49 mm Hg. 4. No prior similar studies to compare. Malgorzata Thurston MD (Electronically Signed) Final Date: 31 October 2020 13:54 S
[2020-10-29] MEDS: perflutren protein-a microsphr 0.22 mg/mL SDV 3 mL IV (13:55)
== END 2020-10-29 09:37 | disposition home or self-care (01) ==
PROVIDERS: PCP Family Medicine; Visit Provider Internal Medicine Cardiovascular Disease
DX: R07.9 Chest pain, unspecified (principal); I48.91 Unspecified atrial fibrillation; I25.10 Atherosclerotic heart disease of native coronary artery without angina pectoris
CPT/HCPCS: 78452; 93017; A9500; C8929; J2785; Q9956

== ENCOUNTER → 2020-12-02 09:39 | Outpatient (BNVA) | payer MEDICARE, SELFPAY | PROVIDERS: PCP Family Medicine; Visit Provider Family Medicine | DX: E78.5 Hyperlipidemia, unspecified (principal); G25.0 Essential tremor; I10 Essential (primary) hypertension; M1A.9XX0 Chronic gout, unspecified, without tophus (tophi) | CPT/HCPCS: 80053; 80061; 83721; 84443; 84550; 85025 ==

== ENCOUNTER 2021-08-12 07:29 | Outpatient (CLI) | payer MEDICARE, SELFPAY ==
[2021-08-12 07:59] VITALS: BP 148/80; PULSE 58; RESP 18; TEMP 36.6; O2SAT 97; BMI 39.4
[2021-08-12 08:08] LABS: Basophils # 0.1 10^3/uL (0.0-0.1); Basophils % 1.1 %; Eosinophils # 0.2 10^3/uL (0.0-0.8); Eosinophils % 3.7 %; Hematocrit 37.7 % (37.0-47.0); Lymphocytes # 1.9 10^3/uL (0.8-4.8); Lymphocytes % 28.7 %; Mean Corpuscular HGB Conc 31.8 g/dL (30.0-36.0); Mean Corpuscular Hemoglobin 31.7 pg (28.0-34.0); Mean Corpuscular Volume 99.5 fl (81-99); Mean Platelet Volume 11.4 fL (7.4-10.4); Monocytes # 0.8 10^3/uL (0.2-0.9); Monocytes % 11.7 %; Neutrophils # 3.53 10^3/uL (1.8-7.7); Neutrophils % 54.6 %; Nucleated Red Blood Cells % 0 %; Platelet Count 198 10^3/cmm (130-400); Red Blood Count 3.79 10^6/uL (4.1-5.3); Red Cell Distribution Width 14.6 % (12.1-15.1); White Blood Count 6.5 10^3/uL (4.0-10.0)
[2021-08-12] MEDS: cephALEXin 500 mg Capsule 2000 MG PO (08:14)
--- NOTE | 2021-08-12 08:47 | W.PM.OPSFHP ---
Same Day Surgery H&P Indication for Procedure/HPI DATE OF PROCEDURE: August 12, 2021 CHIEF COMPLAINT/INDICATIONFOR SURGICAL PROCEDURE: Dizziness/bradycardia; h/o atrial fibrillation PREOP DIAGNOSIS: Bradycardia/ Dizziness; h/o Atrial fibrillation PLANNED PROCEDURE: Operation Date: 08/12/21 08:30 Proposed Procedures p Loop Recorder Insertion(Left) - Malgorzata Thurston MD 76 yo woman with PMHx of mild to moderate CAD, hypertension, DM-2, hyperlipidemia, significant and at times debilitating essential tremors, anxiety, gout, chronic low back pain, asthma and atrial fibrillation since 2013 on xarelto and propranolol presented to [facility] care. She complains of feeling tired/ fatigued and having episodes of dizziness. Her tremors are poorly controlled. Her event monitor did not conclusively show correlation of episodes of bradycardia and dizziness. Medications/Allergies* Home Medications Medication Instructions Recorded Confirmed Type furosemide 20 mg tablet 20 mg PO DAILY tab 03/16/21 06/14/21 History multivitamin (One Daily 1 tab PO DAILY 03/16/21 06/14/21 History Multivitamin) propranolol 80 mg capsule,24 80 mg PO DAILY cap 03/16/21 06/14/21 History hr,extended release albuterol sulfate 90 mcg/actuation 2 puff INHALATION Q6H PRN 05/03/21 06/14/21 History aerosol inhaler Allergies/Adverse Reactions Allergy/AdvReac Type Severity Reaction Status Date / Time lisinopril Allergy coughing Verified 06/14/21 09:46 Pertinent History/Comorbid Conditions* Medical History (Updated 05/03/21 @ 12:14 by Mandie Montano MD) Atrial fibrillation Dyslipidemia Gout HTN (hypertension) Melanoma Surgical History (Updated 06/14/21 @ 10:45 by Olivia Whatley DO) H/O colonoscopy 2016 H/O esophagogastroduodenoscopy 1977 History of carpal tunnel release History of cholecystectomy History of removal of ovarian cyst Hx of cataract extraction S/P complete hysterectomy Status post laparoscopic cholecystectomy (03/30/20) Family History (Updated 05/03/21 @ 11:47 by Jossy Weems RN) Diabetes Mother Brother CAD (coronary artery disease) Father unknown age of onset, [place] at 62 Melanoma Mother Cancer Father Family/Other Grandmother Stroke Mother Denies family history of Clotting disorder Dementia Chronic kidney disease (CKD) Suicide Anesthesia complication Bleeding disorder Lung disease Social History Smoking and tobacco status: never smoked Alcohol intake: never Household members: spouse Marital status: Current occupational status: retired History of recent travel: Yes ([place]) Out of state: Yes Pertinent Exam Findings alert, oriented x 3, clear to auscultation bilaterally, regular rate & rhythm and operative site marked Recommendations Surgery/Procedure today Coding Level of Care Code Acute Paper Sorter And Counter for Hakeem Sebastian
--- NOTE | 2021-08-12 09:34 | PM.PROC ---
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 Thurston Indication: Dizziness, fatigue and bradycardia Brief history: 76 yo woman with PMHx of mild to moderate CAD, hypertension, DM-2, hyperlipidemia, significant and at times debilitating essential tremors, anxiety, gout, chronic low back pain, asthma and atrial fibrillation since 2013 on xarelto and propranolol. She complains of feeling tired/ fatigued and having episodes of dizziness. Her tremors are poorly controlled.? Her event monitor did not conclusively show correlation of episodes of bradycardia and dizziness. Decision was made to proceed with implantable loop recorder insertion for closer monitoring. Patient also establish care with neurologist at [place] for tremors. Procedure: Patient was identified and procedure was explained to the patient in detail. Risks and benefits of the procedure were discussed with the patient. Informed consent was obtained. Patient was prepped and draped with STERILE drapes with all aseptic precautions. The patient was anesthetized with 16 mL of lidocaine with 2% epinephrine. A small javan in the skin was made and REVEAL LINQ LNQ 11, serial number [id number] was implanted. Blood loss was less than 10 mL. The skin was secured with Steri-Strips and Tegaderm was applied on top. R-wave amplitude of 0.36 mV was detected. Sensitivity set at 0.035 mV with tachycardia set at 140 bpm and bradycardia detection set at 40 bpm. Programmed to detect longest A. fib. Patient tolerated the procedure pretty well. Performing Provider: Malgorzata Thurston Research Biologist: Froilan Guy Complications: None Condition: stable Disposition: same day Coding Level of Care Code Acute Vamp Liner for Hakeem Sebastian
--- NOTE | 2021-08-13 11:12 | SUR.PHASEII ---
LOOP RECORDER IMPLANT INFORMATION expiration date 11-02-2021 serial number [id number]
== END 2021-08-12 10:10 | disposition home or self-care (01) ==
PROVIDERS: PCP Family Medicine; Visit Provider Internal Medicine Cardiovascular Disease
PROC: (CPT 33285; principal; 2021-08-12 08:30)
DX: R42 Dizziness and giddiness (principal); I25.10 Atherosclerotic heart disease of native coronary artery without angina pectoris; E78.5 Hyperlipidemia, unspecified; I48.91 Unspecified atrial fibrillation; Z79.01 Long term (current) use of anticoagulants; I10 Essential (primary) hypertension
CPT/HCPCS: 33285; 36415; 85025; C1764; C1769

== ENCOUNTER → 2021-08-18 10:05 | Outpatient (BNVA) | payer MEDICARE, SELFPAY | PROVIDERS: PCP Family Medicine; Visit Provider Nurse Practitioner Family | DX: R00.2 Palpitations (principal) | CPT/HCPCS: 99213 ==

== ENCOUNTER → 2021-10-08 09:54 | Outpatient (BNVA) | payer MEDICARE, SELFPAY | PROVIDERS: PCP Family Medicine; Visit Provider Internal Medicine Cardiovascular Disease | DX: Z45.09 Encounter for adjustment and management of other cardiac device (principal) | CPT/HCPCS: 93291 ==

== ENCOUNTER → 2021-10-14 14:15 | Outpatient (BNVA) | payer MEDICARE, SELFPAY | PROVIDERS: PCP Family Medicine; Visit Provider Internal Medicine Cardiovascular Disease | DX: Z45.09 Encounter for adjustment and management of other cardiac device (principal) | CPT/HCPCS: 93298 ==

== ENCOUNTER → 2022-03-16 14:32 | Outpatient (BNVA) | payer MEDICARE, SELFPAY | PROVIDERS: PCP Nurse Practitioner Family; Visit Provider Nurse Practitioner Family | DX: I25.10 Atherosclerotic heart disease of native coronary artery without angina pectoris (principal); I10 Essential (primary) hypertension; I48.91 Unspecified atrial fibrillation; Z79.01 Long term (current) use of anticoagulants | CPT/HCPCS: 93005; 99214 ==

== ENCOUNTER → 2022-09-20 09:11 | Outpatient (BNVA) | payer MEDICARE, SELFPAY | PROVIDERS: PCP Nurse Practitioner Family; Visit Provider Internal Medicine Cardiovascular Disease | DX: Z45.09 Encounter for adjustment and management of other cardiac device (principal) | CPT/HCPCS: G2066 ==

== ENCOUNTER → 2022-12-15 09:06 | Outpatient (BNVA) | payer MEDICARE, SELFPAY | PROVIDERS: PCP Nurse Practitioner Family; Visit Provider Internal Medicine Cardiovascular Disease | DX: Z45.09 Encounter for adjustment and management of other cardiac device (principal) | CPT/HCPCS: G2066 ==

== ENCOUNTER → 2023-02-09 11:47 | Outpatient (BNVA) | payer MEDICARE, SELFPAY | PROVIDERS: PCP Nurse Practitioner Family; Visit Provider Family Medicine | DX: E78.5 Hyperlipidemia, unspecified (principal); G25.0 Essential tremor; I10 Essential (primary) hypertension; M10.9 Gout, unspecified; M1A.9XX0 Chronic gout, unspecified, without tophus (tophi) | CPT/HCPCS: 80053; 80061; 83721; 84443; 84550 ==

== ENCOUNTER 2023-02-16 00:40 | Emergency (ER) | payer MEDICARE, SELFPAY ==
[2023-02-16] VITALS (7 sets, daily range): BP systolic 150–195; BP diastolic 76–108; PULSE 71; RESP 17; TEMP 37.5; O2SAT 96; BMI 38.3
--- NOTE | 2023-02-16 00:46 | ECG_ITS ---
[facility] Test Date: 2023-02-16 Pat Name: Kadi Hernandez Department: Room: Gender: Female Superintendent Pier: : 1945 Requested By: Derrick Yu Order Number: [id number] Al MD: Mandie Montano M.D. Measurements Intervals [place] Rate: 70 P: 56 [place]: 146 QRS: 42 QRSD: 84 T: 18 QT: 358 QTc: 387 Interpretive Statements SINUS RHYTHM NONSPECIFIC T-WAVE ABNORMALITY Compared to ECG 05/01/2020 23:27:05 No significant changes Electronically Signed On 02-16-2023 21:31:12 CDT by Mandie Montano M.D. [id number] f
--- NOTE | 2023-02-16 00:48 | XRR_ITS ---
PROCEDURE INFORMATION: Exam: XR Chest Exam date and time: 02/16/2023 12:57 AM Age: 78 years old Clinical indication: Chest wall pain; Patient HX: Chest pain as well as pain between her shoulder blades TECHNIQUE: Imaging protocol: Radiologic exam of the chest. Views: 1 view. COMPARISON: CR XR chest 1V portable [id number] 05/01/2020 11:15 PM FINDINGS: Lungs: Unremarkable. No consolidation. Pleural spaces: Unremarkable. No pleural effusion. No pneumothorax. Heart/Mediastinum: Unremarkable. No cardiomegaly. Bones/joints: Unremarkable. XR/XR chest 1V portable [id number] IMPRESSION: No acute findings.
--- NOTE | 2023-02-16 01:00 | ED_ITS ---
HPI - Chest Pain General: Chief Complaint: Chest Pain Stated Complaint: Chest Pains Time Seen by Provider: 02/16/23 00:54 History of Present Illness: Patient presents to the ER with intermittent chest pain over the last several days. When his pain comes it is sharp and stabbing anterior and goes to her back and between her shoulder blades. Patient has had this multiple times in t he past with the last one being about a year ago where she was worked up. Patient does have a history of atrial fibrillation which can cause this type of chest pain. Patient is currently on anticoagulation and has not missed any doses of her medicine. Review of Systems General: Reports: 10 or more systems reviewed and unremarkable except in HPI and below PFSH ED PFSH: Medical History Atrial fibrillation Dyslipidemia Gout HTN (hypertension) Melanoma Surgical History H/O colonoscopy 2016 H/O esophagogastroduodenoscopy 1977 History of carpal tunnel release History of cholecystectomy History of removal of ovarian cyst Hx of cataract extraction S/P complete hysterectomy Status post laparoscopic cholecystectomy (03/30/20) Family History Mother Melanoma Diabetes Stroke Father CAD (coronary artery disease) unknown age of onset, [place] at 62 Cancer Family/Other Cancer Grandmother Cancer Brother Diabetes Denies family history of Clotting disorder Dementia Chronic kidney disease (CKD) Suicide Anesthesia complication Bleeding disorder Lung disease Social History Smoking and tobacco/nicotine status: never used tobacco/nicotine Alcohol intake: never Substance/Drug Use: never Household members: spouse Marital status: Current occupational status: retired Physical Exam Const: COMMON NORMALS: no acute distress, average body habitus, patient oriented x3, no limitations, healthy appearing, alert and well nourished HENMT: COMMON NORMALS: normocephalic, atraumatic, hearing grossly normal bilaterally, external ears normal, Normal external nose present, moist oral m ucous membranes and oropharynx normal HEAD & SCALP: normocephalic and atr aumatic NOSE: Normal external nose present EXTERNAL EAR: Yes external ears normal Eye: COMMON NORMALS: Equal, round and reactive pupils present, EOMs intact bilaterally, conjunctivae normal and no scleral icterus CONJUNCTIVA: Yes conjunctivae normal PUPIL: Yes Equal, round and reactive pupils present Neck/C-Spine: COMMON NORMALS: full ROM, no lymphadenopathy, supple, no meningeal signs, no JVD and Thyroid normal THYROID: Thyroid normal Chest: COMMONS NORMALS: normal inspection of the chest and normal palpation of entire chest wall Resp: COMMON NORMALS: normal respiratory effort, No retractions, No use of accessory muscles and clear to auscultation bilaterally AUSCULTATION: clear to auscultation bilaterally Cardio: COMMON NORMALS: no JVD, regular rate, regular rhythm, S1 normal heart sound present, S2 normal heart sound present, No gallops present (Cardio), No clicks present (Cardio), No murmurs present (Cardio) and No rub (Cardio) RATE: regular rate RHYTHM: regular rhythm HEART SOUNDS: S1 normal heart sound present and S2 normal heart sound present GI: COMMON NORMALS: Normal to inspection, nondistended, normoactive bowel sounds present, Soft to palpation, non-tender, No hepatosplenomegaly present and no masses PALPATION: Yes Soft to palpation and Yes No hepatosplenomegaly present Neuro: COMMON NORMALS: patient oriented x3 SENSORIUM/ORIENTATION: Yes alert MENINGEAL SIGNS: Yes no meningeal signs Course Vital Signs: Vital signs: Vital Signs Temperature 99.5 F 02/16/23 00:53 Pulse Rate 71 02/16/23 00:47 Respiratory Rate 17 02/16/23 00:47 Blood Pressure 150/76 02/16/23 02:22 Pulse Oximetry 96 02/16/23 00:47 Oxygen Delivery Me thod Room Air 02/16/23 00:47 MDM - Chest Pain Medical Decision Making Patient presented to the ER with chest pain and high blood pressure. Patient was worked up in the standard cardiac fashion with serial EKGs labs and x-ray. Patient's initial troponin was 15 and 2-hour troponin was 14.1 with a delta of 0.84. EKGs did not show any acute changes patient felt much better once her blood pressure was lowered with 0.1 mg clonidine. Patient will be discharged home to follow-up with her PCP Differential Diagnosis Unlikely acute massive pulmonary embolism, acute respiratory failure, acute myocardial infarction, cardiac arrest or sudden cardiac Medical Records I reviewed the patient's medical records. Lab Data I reviewed the patient's lab results. 02/16/23 01:03 02/16/23 01:03 Radiology Impressions Chest X-Ray 02/16/23 00:48 IMPRESSION: No acute findings. Laboratory Results WBC 7.92 10^3/uL (3.29-11.43) 02/16/23 01:03 RBC 4.23 10^6/uL (3.85-5.65) 02/16/23 01:03 Hgb 13.60 g/dL (11.27-16.99) 02/16/23 01:03 Hct 42.5 % (36-47) 02/16/23 01:03 MCV 100.5 fl (85-98) H 02/16/23 01:03 MCH 32.2 pg (27-33) 02/16/23 01:03 MCHC 32.0 g/dL (30-55) 02/16/23 01:03 RDW 14.3 % (12.1-15.1) 02/16/23 01:03 Plt Count 214 10^3/cmm (157-399) 02/16/23 01:03 MPV 11.7 fL (7.4-10.4) H 02/16/23 01:03 Neut % (Auto) 54.3 % 02/16/23 01:03 Lymph % (Auto) 28.4 % 02/16/23 01:03 [place] % (Auto) 11.9 % 02/16/23 01:03 Eos % (Auto) 4.0 % 02/16/23 01:03 Baso % (Auto) 1.0 % 02/16/23 01:03 Neut # (Auto) 4.30 10^3/uL (1.8-7.7) 02/16/23 01:03 Lymph # (Auto) 2.3 10^3/uL (0.8-4.8) 02/16/23 01:03 [place] # (Auto) 0.9 10^3/uL (0.2-0.9) 02/16/23 01:03 Eos # (Auto) 0.3 10^3/uL (0.0-0.8) 02/16/23 01:03 Baso # (Auto) 0.1 10^3/uL (0.0-0.1) 02/16/23 01:03 Nucleated RBC % (auto) 0 % 02/16/23 01:03 Nucleated RBCs # 0.0 /100WBC 02/16/23 01:03 APTT 29.1 SECONDS (23.9-36.7) 02/16/23 01:03 Sodium 141 mmol/L (136-145) 02/16/23 01:03 Potassium 3.8 mmol/L (3.5-5.1) 02/16/23 01:03 Chloride 101 mmol/L (98-107) 02/16/23 01:03 Carbon Dioxide 25 mmol/L (22-29) 02/16/23 01:03 Anion Gap 18.8 (5-19) 02/16/23 01:03 BUN 19 mg/dL (8-23) 02/16/23 01:03 Creatinine 1.2 mg/dL (0.5-0.9) H 02/16/23 01:03 GFR Calculation Not Reportable 02/16/23 01:03 Glucose 174 mg/dL (65-115) H 02/16/23 01:03 Calculated Osmolality 298 mOsm/kg (285-295) H 02/16/23 01:03 Calcium 9.1 mg/dL (8.5-10.5) 02/16/23 01:03 Total Bilirubin 0.4 mg/dL (0.15-1.2) 02/16/23 01:03 AST 38 U/L (0-32) H 02/16/23 01:03 ALT 7 U/L (0-33) 02/16/23 01:03 Alkaline Phosphatase 78 U/L (35-105) 02/16/23 01:03 Troponin T Baseline 15 ng/L (0-10) H 02/16/23 01:03 Troponin T 120 Minute 14.16 ng/L (0-10) H 02/16/23 02:25 Delta Troponin T -0.84 ABS# (0-10) L 02/16/23 02:25 Total Protein 7.4 g/dL (6.6-8.7) 02/16/23 01:03 Albumin 4.1 g/dL (3.5-5.2) 02/16/23 01:03 Globulin 3.3 g/dL (1.3-4.6) 02/16/23 01:03 XR interpretation done by ED provider, pending radiology final review EKG Data EKG 1: I personally reviewed and interpreted this EKG as follows: EKG interpretation date: 02/16/23 EKG interpretation time: 00:46 Prior EKG tracings: not available for review Interpretation: EKG showed ventricular rate 70 bpm, RI interval 146, QRS duration 84, QTc 379, sinus rhythm, nonspecific T wave abnormality, EKG 2: I personally reviewed and interpreted this EKG as follows: EKG interpretation date: 02/16/23 EKG interpretation time: 02:46 Prior EKG tracings: available for review Interpretation: EKG showed ventricular rate 62 bpm, RI interval 130, QRS duration 89, QTc of 409, sinus rhythm, nonspecific T wave abnormality Discharge Plan Discharge Patient Disposition: Home Clinical Impression: HTN (hypertension) Qualifiers: Hypertension type: unspecified Qualified Code(s): I10 - Essential (primary) hypertension Chest pain Qualifiers: Chest pain type: unspecified Qualified Code(s): R07.9 - Chest pain, unspecified Condition: Stable Prescriptions: No Action fluticasone propionate [Flonase Allergy Relief] 50 mcg/actuation spray,suspension 2 spray intranasal DAILY PRN Rx Instructions: administer into each nostril albuterol sulfate 90 mcg/actuation HFA aerosol inhaler 2 puff inhalation Q6H PRN primidone 50 mg tablet 100 mg PO .qhs Qty: 180 3RF atorvastatin 20 mg tablet 20 mg PO DAILY Qty: 90 0RF potassium chloride 10 mEq tablet,ER particles/crystals See Rx Instructions .ROUTE .COMPLEX Qty: 180 3RF Dose Instruction: TAKE 2 TABLETS BY MOUTH DAILY Rx Instructions: TAKE 2 TABLETS BY MOUTH DAILY irbesartan 75 mg tablet 75 mg PO DAILY Qty: 90 3RF allopurinol 300 mg tablet See Rx Instructions .ROUTE .COMPLEX Qty: 90 3RF Dose Instruction: TAKE 1 TABLET BY MOUTH DAILY Rx Instructions: TAKE 1 TABLET BY MOUTH DAILY Xarelto 20 mg tablet 20 mg PO DAILY Qty: 100 3RF isosorbide mononitrate 60 mg tablet extended release 24 hr 60 mg PO DAILY Qty: 90 2RF propranolol 80 mg capsule,extended release 24hr See Rx Instructions .ROUTE .COMPLEX Qty: 180 3RF Dose Instruction: TAKE 1 CAPSULE BY MOUTH TWICE DAILY Rx Instructions: TAKE 1 CAPSULE BY MOUTH TWICE DAILY Discharge Orders: Discharge ED (Routine); Ordered 02/16/23 Ordered By: Derrick Yu Referrals: Bonnie Fleming FNP [Primary Care Provider] - 1 week Patient Instructions: Chest Pain (DC), Hypertension (ED) Activity Restrictions/Additional Instructions: Please follow-up with your family practice physician for further evaluation and treatment. If this pain returns or worsens please return to the ER. Coding Level of Care Code ED Assistant Manager/Embalmer for Hakeem Sebastian
[2023-02-16 01:21] LABS: Partial Thromboplastin Time 29.1 SECONDS (23.9-36.7)
[2023-02-16 01:22] LABS: Basophils # 0.1 10^3/uL (0.0-0.1); Eosinophils # 0.3 10^3/uL (0.0-0.8); Hematocrit 42.5 % (36-47); Lymphocytes # 2.3 10^3/uL (0.8-4.8); Lymphocytes % 28.4 %; Mean Corpuscular Hemoglobin 32.2 pg (27-33); Mean Corpuscular Volume 100.5 fl (85-98); Mean Platelet Volume 11.7 fL (7.4-10.4); Monocytes # 0.9 10^3/uL (0.2-0.9); Monocytes % 11.9 %; Neutrophils % 54.3 %; Nucleated Red Blood Cells % 0 %; Platelet Count 214 10^3/cmm (157-399); Red Blood Count 4.23 10^6/uL (3.85-5.65); Red Cell Distribution Width 14.3 % (12.1-15.1); White Blood Count 7.92 10^3/uL (3.29-11.43)
[2023-02-16 01:26] LABS: Troponin(5th) Baseline 15 ng/L (0-10)
[2023-02-16] MEDS: cloNIDine 0.1 mg Tablet PO (01:33)
[2023-02-16 01:43] LABS: Alanine Aminotransferase 7 U/L (0-33); Albumin Level 4.1 g/dL (3.5-5.2); Alkaline Phosphatase 78 U/L (35-105); Aspartate Amino Transferase 38 U/L (0-32); Blood Urea Nitrogen 19 mg/dL (8-23); Calcium 9.1 mg/dL (8.5-10.5); Carbon Dioxide 25 mmol/L (22-29); Chloride 101 mmol/L (98-107); Globulin 3.3 g/dL (1.3-4.6); Glucose 174 mg/dL (65-115); Osmolality Calculated 298 mOsm/kg (285-295); Total Bilirubin 0.4 mg/dL (0.15-1.2); Total Protein 7.4 g/dL (6.6-8.7)
[2023-02-16 01:50] LABS: Anion Gap 18.8 (5-19); Potassium 3.8 mmol/L (3.5-5.1); Sodium 141 mmol/L (136-145)
--- NOTE | 2023-02-16 02:48 | ECG_ITS ---
[facility] Test Date: 2023-02-16 Pat Name: Kadi Hernandez Department: Room: Gender: Female [employer] Superintendent: : 1945 Requested By: Derrick Yu Order Number: [id number] Reading MD: Mandie Montano M.D. Measurements Intervals [place] Rate: 62 P: 41 MS: 130 QRS: 38 QRSD: 89 T: 15 QT: 403 QTc: 412 Interpretive Statements SINUS RHYTHM NONSPECIFIC T-WAVE ABNORMALITY Compared to ECG 02/16/2023 00:46:16 No significant changes Electronically Signed On 02-16-2023 21:37:45 CDT by Mandie Montano M.D. [id number]
[2023-02-16 02:49] LABS: Troponin 5 2HR 14.16 ng/L (0-10)
[2023-02-16 02:50] LABS: Troponin 5 2HR Delta -0.84 ABS# (0-10)
== END 2023-02-16 03:19 | disposition home or self-care (01) ==
PROVIDERS: Emergency Provider Emergency Medicine; PCP Nurse Practitioner Family
DX: R07.9 Chest pain, unspecified (principal); I10 Essential (primary) hypertension; E78.5 Hyperlipidemia, unspecified
CPT/HCPCS: 71045; 80053; 84484; 85025; 85730; 93005; 99285

== ENCOUNTER 2023-03-08 22:10 | Emergency (ER) | payer MEDICARE, SELFPAY ==
--- NOTE | 2023-03-08 22:20 | XRR_ITS ---
PROCEDURE INFORMATION: Exam: XR Chest Exam date and time: 03/08/2023 10:53 PM Age: 78 years old Clinical indication: Chest wall pain; Additional info: Cp TECHNIQUE: Imaging protocol: Radiologic exam of the chest. Views: 1 view. COMPARISON: CR (CHEST, ) 02/16/2023 12:57 AM FINDINGS: Lungs: Left lower lobe atelectasis. Pleural spaces: Unremarkable. No pleural effusion. No pneumothorax. Heart/Mediastinum: Mild cardiomegaly. Bones/joints: Unremarkable. XR/XR chest 1V portable [id number] IMPRESSION: 1. Mild cardiomegaly. 2. Left lower lobe atelectasis.
--- NOTE | 2023-03-08 22:20 | ECG_ITS ---
[facility] Test Date: 2023-03-08 Pat Name: Kadi Hernandez Department: Room: Gender: Female Advisory Application Developer: : 1945 Requested By: Luann Zepeda Order Number: [id number] Al MD: Julian Pitts M.D. Measurements Intervals [place] Rate: 60 P: 38 MD: 135 QRS: 45 QRSD: 87 T: 43 QT: 397 QTc: 397 Interpretive Statements SINUS RHYTHM Compared to ECG 02/16/2023 02:46:47 T-wave abnormality no longer present Electronically Signed On 03-09-2023 6:23:42 CDT by Julian Pitts M.D. [id number] f
[2023-03-08 22:35] VITALS: BP 187/77; PULSE 58; RESP 17; TEMP 36.5; O2SAT 98; BMI 35.9
[2023-03-08 22:56] LABS: Basophils # 0.1 10^3/uL (0.0-0.1); Eosinophils # 0.4 10^3/uL (0.0-0.8); Eosinophils % 4.5 %; Hematocrit 40.3 % (36-47); Lymphocytes # 2.5 10^3/uL (0.8-4.8); Lymphocytes % 29.6 %; Mean Corpuscular HGB Conc 31.8 g/dL (30-55); Mean Corpuscular Hemoglobin 31.7 pg (27-33); Mean Corpuscular Volume 99.8 fl (85-98); Mean Platelet Volume 11.4 fL (7.4-10.4); Monocytes % 11.4 %; Neutrophils # 4.42 10^3/uL (1.8-7.7); Neutrophils % 53.3 %; Nucleated Red Blood Cells % 0 %; Platelet Count 190 10^3/cmm (157-399); Red Blood Count 4.04 10^6/uL (3.85-5.65); Red Cell Distribution Width 14.6 % (12.1-15.1)
[2023-03-08 23:11] LABS: INR 1.47 (0.8-1.2)
[2023-03-08 23:16] LABS: Troponin(5th) Baseline 13 ng/L (0-10)
[2023-03-08 23:22] LABS: Alanine Aminotransferase 7 U/L (0-33); Albumin Level 3.8 g/dL (3.5-5.2); Alkaline Phosphatase 67 U/L (35-105); Anion Gap 14.9 (5-19); Aspartate Amino Transferase 39 U/L (0-32); Blood Urea Nitrogen 12 mg/dL (8-23); Calcium 9.4 mg/dL (8.5-10.5); Carbon Dioxide 25 mmol/L (22-29); Chloride 101 mmol/L (98-107); Globulin 3.6 g/dL (1.3-4.6); Glucose 155 mg/dL (65-115); Lipase 37 U/L (13-60); Osmolality Calculated 287 mOsm/kg (285-295); Potassium 3.9 mmol/L (3.5-5.1); Sodium 137 mmol/L (136-145); Total Bilirubin 0.4 mg/dL (0.15-1.2); Total Protein 7.4 g/dL (6.6-8.7)
--- NOTE | 2023-03-08 23:31 | W.ED.CHESTPA ---
HPI - Chest Pain General: Chief Complaint: Chest Pain Stated Complaint: chest pain Time Seen by Provider: 03/08/23 23:23 PFSH ED PFSH: Medical History Atrial fibrillation Dyslipidemia Gout HTN (hypertension) Melanoma Surgical History H/O colonoscopy 2016 H/O esophagogastroduodenoscopy 1977 History of carpal tunnel release History of cholecystectomy History of removal of ovarian cyst Hx of cataract extraction S/P complete hysterectomy Status post laparoscopic cholecystectomy (03/30/20) Family History Mother Melanoma Diabetes Stroke Father CAD (coronary artery disease) unknown age of onset, [place] at 62 Cancer Family/Other Cancer Grandmother Cancer Brother Diabetes Denies family history of Clotting disorder Dementia Chronic kidney disease (CKD) Suicide Anesthesia complication Bleeding disorder Lung disease Social History Smoking and tobacco/nicotine status: never used tobacco/nicotine Alcohol intake: never Substance/Drug Use: never Household members: spouse Marital status: Current occupational status: retired Course Vital Signs: Vital signs: Vital Signs Temperature 97.7 F 03/08/23 22:35 Pulse Rate 58 L 03/08/23 22:35 Respiratory Rate 17 03/08/23 22:35 Blood Pressure 187/77 03/08/23 22:35 Pulse Oximetry 98 03/08/23 22:35 Oxygen Delivery Me thod Room Air 03/08/23 22:35 MDM - Chest Pain Lab Data 03/08/23 22:51 03/08/23 22:51 Laboratory Results WBC 8.30 10^3/uL (3.29-11.43) 03/08/23 22:51 RBC 4.04 10^6/uL (3.85-5.65) 03/08/23 22:51 Hgb 12.80 g/dL (11.27-16.99) 03/08/23 22:51 Hct 40.3 % (36-47) 03/08/23 22:51 MCV 99.8 fl (85-98) H 03/08/23 22:51 MCH 31.7 pg (27-33) 03/08/23 22:51 MCHC 31.8 g/dL (30-55) 03/08/23 22:51 RDW 14.6 % (12.1-15.1) 03/08/23 22:51 Plt Count 190 10^3/cmm (157-399) 03/08/23 22:51 MPV 11.4 fL (7.4-10.4) H 03/08/23 22:51 Neut % (Auto) 53.3 % 03/08/23 22:51 Lymph % (Auto) 29.6 % 03/08/23 22:51 [place] % (Auto) 11.4 % 03/08/23 22:51 Eos % (Auto) 4.5 % 03/08/23 22:51 Baso % (Auto) 1.0 % 03/08/23 22:51 Neut # (Auto) 4.42 10^3/uL (1.8-7.7) 03/08/23 22:51 Lymph # (Auto) 2.5 10^3/uL (0.8-4.8) 03/08/23 22:51 [place] # (Auto) 1.0 10^3/uL (0.2-0.9) H 03/08/23 22:51 Eos # (Auto) 0.4 10^3/uL (0.0-0.8) 03/08/23 22:51 Baso # (Auto) 0.1 10^3/uL (0.0-0.1) 03/08/23 22:51 Nucleated RBC % (auto) 0 % 03/08/23 22:51 Nucleated RBCs # 0.0 /100WBC 03/08/23 22:51 PT 18.40 SECONDS (12.1-14.9) H 03/08/23 22:51 INR 1.47 (0.8-1.2) H 03/08/23 22:51 Sodium 137 mmol/L (136-145) 03/08/23 22:51 Potassium 3.9 mmol/L (3.5-5.1) 03/08/23 22:51 Chloride 101 mmol/L (98-107) 03/08/23 22:51 Carbon Dioxide 25 mmol/L (22-29) 03/08/23 22:51 Anion Gap 14.9 (5-19) 03/08/23 22:51 BUN 12 mg/dL (8-23) 03/08/23 22:51 Creatinine 0.8 mg/dL (0.5-0.9) 03/08/23 22:51 GFR Calculation Not Reportable 03/08/23 22:51 Glucose 155 mg/dL (65-115) H 03/08/23 22:51 Calculated Osmolality 287 mOsm/kg (285-295) 03/08/23 22:51 Calcium 9.4 mg/dL (8.5-10.5) 03/08/23 22:51 Total Bilirubin 0.4 mg/dL (0.15-1.2) 03/08/23 22:51 AST 39 U/L (0-32) H 03/08/23 22:51 ALT 7 U/L (0-33) 03/08/23 22:51 Alkaline Phosphatase 67 U/L (35-105) 03/08/23 22:51 Troponin T Baseline 13 ng/L (0-10) H 03/08/23 22:51 Total Protein 7.4 g/dL (6.6-8.7) 03/08/23 22:51 Albumin 3.8 g/dL (3.5-5.2) 03/08/23 22:51 Globulin 3.6 g/dL (1.3-4.6) 03/08/23 22:51 Lipase 37 U/L (13-60) 03/08/23 22:51 Discharge Plan Discharge Condition: Stable Prescriptions: No Action fluticasone propionate [Flonase Allergy Relief] 50 mcg/actuation spray,suspension 2 spray intranasal DAILY PRN Rx Instructions: administer into each nostril albuterol sulfate 90 mcg/actuation HFA aerosol inhaler 2 puff inhalation Q6H PRN primidone 50 mg tablet 100 mg PO .qhs Qty: 180 3RF atorvastatin 20 mg tablet 20 mg PO DAILY Qty: 90 0RF irbesartan 75 mg tablet 75 mg PO DAILY Qty: 90 3RF allopurinol 300 mg tablet See Rx Instructions .ROUTE .COMPLEX Qty: 90 3RF Dose Instruction: TAKE 1 TABLET BY MOUTH DAILY Rx Instructions: TAKE 1 TABLET BY MOUTH DAILY Xarelto 20 mg tablet 20 mg PO DAILY Qty: 100 3RF isosorbide mononitrate 60 mg tablet extended release 24 hr 60 mg PO DAILY Qty: 90 2RF propranolol 80 mg capsule,extended release 24hr See Rx Instructions .ROUTE .COMPLEX Qty: 180 1RF Dose Instruction: TAKE 1 CAPSULE BY MOUTH TWICE DAILY Rx Instructions: TAKE 1 CAPSULE BY MOUTH TWICE DAILY potassium chloride 10 mEq tablet,ER particles/crystals See Rx Instructions .ROUTE .COMPLEX Qty: 200 3RF Dose Instruction: TAKE 2 TABLETS BY MOUTH DAILY Rx Instructions: TAKE 2 TABLETS BY MOUTH DAILY Referrals: Bonnie Fleming FNP [Primary Care Provider] - Coding Level of Care Code ED Director Of Nuclear Medicine for Hakeem Sebastian
--- NOTE | 2023-03-09 00:07 | W.ED.CHESTPA ---
HPI - Chest Pain General: Chief Complaint: Chest Pain Stated Complaint: chest pain Time Seen by Provider: 03/08/23 23:23 Source: patient Mode of arrival: ambulatory Limitations: no limitations History of Present Illness: 70-year-old female states she started having chest pain this evening. States it was a sharp pain that went across her chest states since his resolved he does have a history of A-fib denies any history of having pain like this in the past. She denies any vomiting or diarrhea. Denies any worsening proving factors. Associated symptoms: Deny abdominal pain, dyspnea, fever(s), nausea or vomiting Review of Systems Const: Denies: fever(s), chills, body aches or change in appetite Eyes: Denies: blurry vision or eye discomfort ENMT: Denies: throat pain or dental pain Card: Reports: chest pain Resp: Denies: dyspnea GI: Denies: abdominal pain, nausea, vomiting or diarrhea : Denies: dysuria Musc: Denies: neck pain or back pain Skin/Breast: Denies: rash Neuro: Denies: headache(s) PFSH ED PFSH: Medical History Atrial fibrillation Dyslipidemia Gout HTN (hypertension) Melanoma Surgical History H/O colonoscopy 2016 H/O esophagogastroduodenoscopy 1977 History of carpal tunnel release History of cholecystectomy History of removal of ovarian cyst Hx of cataract extraction S/P complete hysterectomy Status post laparoscopic cholecystectomy (03/30/20) Family History Mother Melanoma Diabetes Stroke Father CAD (coronary artery disease) unknown age of onset, [place] at 62 Cancer Family/Other Cancer Grandmother Cancer Brother Diabetes Denies family history of Clotting disorder Dementia Chronic kidney disease (CKD) Suicide Anesthesia complication Bleeding disorder Lung disease Social History Smoking and tobacco/nicotine status: never used tobacco/nicotine Alcohol intake: never Substance/Drug Use: never Household members: spouse Marital status: Current occupational status: retired Physical Exam Const: COMMON NORMALS: no acute distress, patient oriented x3 and healthy appearing HENMT: COMMON NORMALS: normocephalic and atraumatic HEAD & SCALP: normocephalic and atraumatic Eye: COMMON NORMALS: Equal, round and reactive pupils present and EOMs intact bilaterally PUPIL: Yes Equal, round and reactive pupils present Neck/C-Spine: COMMON NORMALS: full ROM and supple Chest: COMMONS NORMALS: normal inspection of the chest and normal palpation of entire chest wall Resp: COMMON NORMALS: normal respiratory effort, No retractions, No use of accessory muscles and clear to auscultation bilaterally AUSCULTATION: clear to auscultation bilaterally Cardio: COMMON NORMALS: regular rate, regular rhythm and No murmurs present (Cardio) RATE: regular rate RHYTHM: regular rhythm GI: COMMON NORMALS: Normal to inspection, nondistended, normoactive bowel sounds present, Soft to palpation, non-tender and no masses PALPATION: Yes Soft to palpation Extremity: COMMON NORMALS: normal to inspection and full ROM Neuro: COMMON NORMALS: patient oriented x3, moves all extremities and no focal motor deficits Psych: COMMON NORMALS: mental status grossly normal, Normal thought process present and cooperative THOUGHT PROCESS: Normal thought process present Skin: COMMON NORMALS: no rashes or lesions noted and no wounds GENERAL SKIN EXAM: no rashes or lesions noted Course Vital Signs: Vital signs: Vital Signs Temperature 97.7 F 03/08/23 22:35 Pulse Rate 58 L 03/08/23 22:35 Respiratory Rate 17 03/08/23 22:35 Blood Pressure 187/77 03/08/23 22:35 Pulse Oximetry 98 03/08/23 22:35 Oxygen Delivery Me thod Room Air 03/08/23 22:35 MDM - Chest Pain Medical Decision Making Patient presents for chest pain is since resolved she had no pain here initial repeat troponin here are normal she has no signs of pulmonary embolism or aortic dissection she is to follow-up with her manager union return if worsening she understands agrees to plan Medical Records I reviewed the patient's medical records. Lab Data I reviewed the patient's lab results. 03/08/23 22:51 03/08/23 22:51 Radiology Impressions Chest X-Ray 03/08/23 22:20 IMPRESSION: 1. Mild cardiomegaly. 2. Left lower lobe atelectasis. Laboratory Results WBC 8.30 10^3/uL (3.29-11.43) 03/08/23 22:51 RBC 4.04 10^6/uL (3.85-5.65) 03/08/23 22:51 Hgb 12.80 g/dL (11.27-16.99) 03/08/23 22:51 Hct 40.3 % (36-47) 03/08/23 22:51 MCV 99.8 fl (85-98) H 03/08/23 22:51 MCH 31.7 pg (27-33) 03/08/23 22:51 MCHC 31.8 g/dL (30-55) 03/08/23 22:51 RDW 14.6 % (12.1-15.1) 03/08/23 22:51 Plt Count 190 10^3/cmm (157-399) 03/08/23 22:51 MPV 11.4 fL (7.4-10.4) H 03/08/23 22:51 Neut % (Auto) 53.3 % 03/08/23 22:51 Lymph % (Auto) 29.6 % 03/08/23 22:51 [place] % (Auto) 11.4 % 03/08/23 22:51 Eos % (Auto) 4.5 % 03/08/23 22:51 Baso % (Auto) 1.0 % 03/08/23 22:51 Neut # (Auto) 4.42 10^3/uL (1.8-7.7) 03/08/23 22:51 Lymph # (Auto) 2.5 10^3/uL (0.8-4.8) 03/08/23 22:51 [place] # (Auto) 1.0 10^3/uL (0.2-0.9) H 03/08/23 22:51 Eos # (Auto) 0.4 10^3/uL (0.0-0.8) 03/08/23 22:51 Baso # (Auto) 0.1 10^3/uL (0.0-0.1) 03/08/23 22:51 Nucleated RBC % (auto) 0 % 03/08/23 22:51 Nucleated RBCs # 0.0 /100WBC 03/08/23 22:51 PT 18.40 SECONDS (12.1-14.9) H 03/08/23 22:51 INR 1.47 (0.8-1.2) H 03/08/23 22:51 Sodium 137 mmol/L (136-145) 03/08/23 22:51 Potassium 3.9 mmol/L (3.5-5.1) 03/08/23 22:51 Chloride 101 mmol/L (98-107) 03/08/23 22:51 Carbon Dioxide 25 mmol/L (22-29) 03/08/23 22:51 Anion Gap 14.9 (5-19) 03/08/23 22:51 BUN 12 mg/dL (8-23) 03/08/23 22:51 Creatinine 0.8 mg/dL (0.5-0.9) 03/08/23 22:51 GFR Calculation Not Reportable 03/08/23 22:51 Glucose 155 mg/dL (65-115) H 03/08/23 22:51 Calculated Osmolality 287 mOsm/kg (285-295) 03/08/23 22:51 Calcium 9.4 mg/dL (8.5-10.5) 03/08/23 22:51 Total Bilirubin 0.4 mg/dL (0.15-1.2) 03/08/23 22:51 AST 39 U/L (0-32) H 03/08/23 22:51 ALT 7 U/L (0-33) 03/08/23 22:51 Alkaline Phosphatase 67 U/L (35-105) 03/08/23 22:51 Troponin T Baseline 13 ng/L (0-10) H 03/08/23 22:51 Troponin T 120 Minute 13.65 ng/L (0-10) H 03/09/23 00:44 Delta Troponin T 0.65 ABS# (0-10) 03/09/23 00:44 Total Protein 7.4 g/dL (6.6-8.7) 03/08/23 22:51 Albumin 3.8 g/dL (3.5-5.2) 03/08/23 22:51 Globulin 3.6 g/dL (1.3-4.6) 03/08/23 22:51 Lipase 37 U/L (13-60) 03/08/23 22:51 All radiology interpretation(s) finalized by discharge EKG Data EKG 1: I personally reviewed and interpreted this EKG as follows: EKG interpretation date: 03/08/23 EKG interpretation time: 22:18 Interpretation: nsr hr [address] or t wave abnormalities qrs 87 qtc 397 Discharge Plan Discharge Patient Disposition: Home Clinical Impression: Chest pain Condition: Stable Prescriptions: No Action fluticasone propionate [Flonase Allergy Relief] 50 mcg/actuation spray,suspension 2 spray intranasal DAILY PRN Rx Instructions: administer into each nostril albuterol sulfate 90 mcg/actuation HFA aerosol inhaler 2 puff inhalation Q6H PRN primidone 50 mg tablet 100 mg PO .qhs Qty: 180 3RF atorvastatin 20 mg tablet 20 mg PO DAILY Qty: 90 0RF irbesartan 75 mg tablet 75 mg PO DAILY Qty: 90 3RF allopurinol 300 mg tablet See Rx Instructions .ROUTE .COMPLEX Qty: 90 3RF Dose Instruction: TAKE 1 TABLET BY MOUTH DAILY Rx Instructions: TAKE 1 TABLET BY MOUTH DAILY Xarelto 20 mg tablet 20 mg PO DAILY Qty: 100 3RF isosorbide mononitrate 60 mg tablet extended release 24 hr 60 mg PO DAILY Qty: 90 2RF propranolol 80 mg capsule,extended release 24hr See Rx Instructions .ROUTE .COMPLEX Qty: 180 1RF Dose Instruction: TAKE 1 CAPSULE BY MOUTH TWICE DAILY Rx Instructions: TAKE 1 CAPSULE BY MOUTH TWICE DAILY potassium chloride 10 mEq tablet,ER particles/crystals See Rx Instructions .ROUTE .COMPLEX Qty: 200 3RF Dose Instruction: TAKE 2 TABLETS BY MOUTH DAILY Rx Instructions: TAKE 2 TABLETS BY MOUTH DAILY Discharge Orders: Discharge ED (Routine); Ordered 03/09/23 Ordered By: Luann Zepeda Referrals: Bonnie Fleming FNP [Primary Care Provider] - Malgorzata Thurston MD [Physician] - 1-3 days Discharge Diet: Advance as tolerated Discharge Activity: Resume usual activity Patient Instructions: Chest Pain (ED) Coding Level of Care Code ED Police District Switchboard Operator for Hakeem Sebastian
[2023-03-09] MEDS: aspirin 81 mg Chew Tablet 324 MG PO (00:16)
--- NOTE | 2023-03-09 00:20 | ECG_ITS ---
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 Measurements Intervals [place] Rate: 52 P: 72 VT: 144 QRS: 42 QRSD: 86 T: 37 QT: 435 QTc: 406 Interpretive Statements SINUS BRADYCARDIA Compared to ECG 03/08/2023 22:18:34 Sinus rhythm no longer present Electronically Signed On 03-09-2023 6:24:49 CDT by Julian Pitts M.D. [id number]
[2023-03-09 01:05] LABS: Troponin 5 2HR 13.65 ng/L (0-10)
[2023-03-09 01:10] LABS: Troponin 5 2HR Delta 0.65 ABS# (0-10)
[2023-03-09 01:24] VITALS: BP 159/82; PULSE 52; RESP 16; O2SAT 95
[2023-03-09 01:31] VITALS: BP 162/84; PULSE 51; RESP 18; O2SAT 95
== END 2023-03-09 01:36 | disposition home or self-care (01) ==
PROVIDERS: Emergency Provider Emergency Medicine; PCP Nurse Practitioner Family
DX: R07.9 Chest pain, unspecified (principal); I11.9 Hypertensive heart disease without heart failure; E78.5 Hyperlipidemia, unspecified
CPT/HCPCS: 36415; 71045; 80053; 83690; 84484; 85025; 85610; 93005; 99285

== ENCOUNTER 2023-03-27 12:55 | Outpatient (CLI) | payer MEDICARE, SELFPAY ==
--- NOTE | 2023-03-27 | US_ITS ---
WS: [id number] LEFT LOWER EXTREMITY VENOUS DOPPLER ULTRASOUND HISTORY: LOCALIZED SWELLING MASS LUMP LEFT LOWER LIMB COMPARISON: None available. Normal 2-D, Doppler and augmentation and compressibility throughout the lower extremity venous struct ures. Additional imaging through the proximal calf veins also reveal no thrombus. Limited evaluation of the greater saphenous vein is patent with no thrombus. IMPRESSION: No DVT LEFT lower extremity.
--- NOTE | 2023-03-27 | US_ITS ---
WS: [id number] DUPLEX CAROTID ULTRASOUND HISTORY: DISORIENTATION COMPARISON: None available. No systolic or diastolic elevation of velocities. Carotid arteries are mildly tortuous with minimal p laque. Waveforms are normal. Antegrade vertebral arteries. Normal ICA/CCA ratios. IMPRESSION: Minimal carotid atherosclerosis. Carotid artery stenosis less than 50%.
== END 2023-03-27 12:56 | disposition home or self-care (01) ==
LOC: RADOUTREAD 12:58
PROVIDERS: PCP Nurse Practitioner Family; Visit Provider Nurse Practitioner Family
DX: R41.0 Disorientation, unspecified (principal); R22.42 Localized swelling, mass and lump, left lower limb; R06.02 Shortness of breath; R00.2 Palpitations; I48.91 Unspecified atrial fibrillation; I25.10 Atherosclerotic heart disease of native coronary artery without angina pectoris; E78.5 Hyperlipidemia, unspecified; G25.0 Essential tremor; E78.1 Pure hyperglyceridemia
CPT/HCPCS: 99215

== ENCOUNTER → 2023-04-12 12:35 | Outpatient (BNVA) | payer MEDICARE, SELFPAY | PROVIDERS: PCP Nurse Practitioner Family; Visit Provider Internal Medicine Cardiovascular Disease | DX: Z45.09 Encounter for adjustment and management of other cardiac device (principal) | CPT/HCPCS: G2066 ==

== ENCOUNTER 2023-04-21 02:00 | Emergency (ER) | payer MEDICARE, SELFPAY ==
[2023-04-21 02:06] VITALS: BP 208/127; PULSE 66; RESP 20; TEMP 36.7; O2SAT 97; BMI 38.7
--- NOTE | 2023-04-21 02:24 | XRR_ITS ---
PROCEDURE INFORMATION: Exam: XR Chest Exam date and time: 04/21/2023 2:32 AM Age: 78 years old Clinical indication: Chest wall pain; Additional info: Chest pain TECHNIQUE: Imaging protocol: Radiologic exam of the chest. Views: 1 view. Total images: 527 COMPARISON: CR (CHEST, ) 03/08/2023 10:53 PM FINDINGS: Lungs: No acute focal pulmonary opacities are detected. Pleural spaces: Unremarkable. No pleural effusion. No pneumothorax. Heart/Mediastinum: Loop cardiac recorder present. Mild cardiomegaly stable. Bones/joints: Osseous structures are unchanged from the prior exam. XR/XR chest 1V portable [id number] IMPRESSION: 1. Mild cardiomegaly stable. 2. No acute focal pulmonary opacities are detected.
--- NOTE | 2023-04-21 02:25 | ECG_ITS ---
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 Measurements Intervals [place] Rate: 68 P: 58 AR: 151 QRS: 45 QRSD: 87 T: 16 QT: 378 QTc: 405 Interpretive Statements SINUS RHYTHM WITH MARKED SINUS ARRHYTHMIA LOW QRS VOLTAGE IN PRECORDIAL LEADS [QRS DEFLECTION < 1.0 mV IN CHEST LEADS] NONSPECIFIC T-WAVE ABNORMALITY INTERPRETATION BASED ON A DEFAULT AGE OF 40 YEARS Compared to ECG 03/09/2023 00:15:59 Low QRS voltage now present T-wave abnormality now present Sinus bradycardia no longer present Electronically Signed On 04-21-2023 13:43:12 FARM REPORTER by Barrington Galan M.D. [id number]
[2023-04-21 02:32] VITALS: BP 173/85
[2023-04-21] MEDS: cloNIDine 0.1 mg Tablet 0.2 MG PO (02:32)
[2023-04-21 02:35] LABS: Basophils # 0.1 10^3/uL (0.0-0.1); Basophils % 0.9 %; Eosinophils # 0.4 10^3/uL (0.0-0.8); Eosinophils % 4.6 %; Hematocrit 41.3 % (36-47); Lymphocytes # 2.3 10^3/uL (0.8-4.8); Lymphocytes % 25.9 %; Mean Corpuscular Hemoglobin 31.5 pg (27-33); Mean Corpuscular Volume 101.7 fl (85-98); Mean Platelet Volume 11.9 fL (7.4-10.4); Monocytes # 0.9 10^3/uL (0.2-0.9); Monocytes % 10.7 %; Neutrophils # 5.02 10^3/uL (1.8-7.7); Neutrophils % 57.4 %; Nucleated Red Blood Cells % 0 %; Platelet Count 207 10^3/cmm (157-399); Red Blood Count 4.06 10^6/uL (3.85-5.65); Red Cell Distribution Width 14.4 % (12.1-15.1); White Blood Count 8.73 10^3/uL (3.29-11.43)
[2023-04-21 02:47] LABS: Troponin(5th) Baseline 17 ng/L (0-10)
[2023-04-21 03:03] VITALS: BP 154/99; PULSE 56; RESP 19; O2SAT 96
[2023-04-21 03:04] LABS: Alanine Aminotransferase 14 U/L (0-33); Alkaline Phosphatase 75 U/L (35-105); Anion Gap 17.9 (5-19); Aspartate Amino Transferase 36 U/L (0-32); Blood Urea Nitrogen 11 mg/dL (8-23); Calcium 9.3 mg/dL (8.5-10.5); Carbon Dioxide 24 mmol/L (22-29); Chloride 101 mmol/L (98-107); Globulin 3.5 g/dL (1.3-4.6); Glucose 175 mg/dL (65-115); Osmolality Calculated 292 mOsm/kg (285-295); Potassium 3.9 mmol/L (3.5-5.1); Sodium 139 mmol/L (136-145); Total Bilirubin 0.4 mg/dL (0.15-1.2); Total Protein 7.5 g/dL (6.6-8.7)
[2023-04-21 03:06] LABS: Creatinine Clr Calc Pharmacy 48.2164
[2023-04-21 03:42] VITALS: BP 127/63; PULSE 58; RESP 16; O2SAT 97
[2023-04-21 04:05] LABS: Troponin 5 2HR 15.52 ng/L (0-10)
[2023-04-21 04:07] LABS: Troponin 5 2HR Delta -1.48 ABS# (0-10)
--- NOTE | 2023-04-21 04:12 | ED_ITS ---
HPI - General Adult 2 General: Chief complaint: General Medical Stated complaint: BP High\Chest pains Time Seen by Provider: 04/21/23 02:07 History of Present Illness: 78-year-old female presents emerged part with complaints of feeling like she is having right-sided chest pain, palpitations as well as having elevated blood pressure that started approximately 12:00. She does have a history of atrial fibrillation as well as hypertension and was recently seen for pacemaker interrogation. She states her chest discomfort is a 2 out of 10 and pressure- like. Associated symptoms: Reports chest pain, dyspnea and palpitations Review of Systems 2 General: Reports: 10 or more systems reviewed and unremarkable except in HPI and below Card: Reports: chest pain and palpitations Resp: Reports: dyspnea PFSH ED 2 PFSH: Medical History HTN (hypertension) Gout Dyslipidemia Melanoma Atrial fibrillation Surgical History Hx of cataract extraction History of cholecystectomy Status post laparoscopic cholecystectomy (03/30/20) History of removal of ovarian cyst History of carpal tunnel release S/P complete hysterectomy H/O esophagogastroduodenoscopy 1977 H/O colonoscopy 2016 Family History Mother Melanoma Diabetes Stroke Father CAD (coronary artery disease) unknown age of onset, [place] at 62 Cancer Family/Other Cancer Grandmother Cancer Brother Diabetes Denies family history of Clotting disorder Dementia Chronic kidney disease (CKD) Suicide Anesthesia complication Bleeding disorder Lung disease Social History Smoking and tobacco/nicotine status: never used tobacco/nicotine Alcohol intake: never Substance/Drug Use: never Household members: spouse Marital status: Current occupational status: retired Physical Exam 2 Narrative: EXAM NARRATIVE: Constitutional: the patient appears well nourished and of normal development. Vital signs as documented. No acute distress at present. Alert and oriented-to person, place, time and situation. Head, eyes, ears, nose, mouth, throat: Normocephalic, atraumatic. Pupils-equal, round, reactive to light. No scleral icterus. Normal-appearing external ears. Normal appearing nasal turbinates, no drainage. No obvious oral lesions, posterior oropharynx without erythema or exudates. Neck: Supple, trachea is midline, no lymphadenopathy, no jugular venous distension, thyromegaly, or carotid bruits. Carotid upstrokes are brisk bilaterally. Lungs: clear to auscultation to all lung vital. Symmetrical rise and fall of chest, no obvious signs of increased work of breathing at present. Cardiac: Regular rate and rhythm, positive S1, S2. No murmurs, rubs or gallops that I can appreciate Abdomen: Soft, non-tender to palpation, normal active bowel sounds to all quadrants. No palpable masses, no organomegaly and abdominal bruits. Extremities: 2+ pulses in the upper extremities that are equal bilaterally, 2+ pulses in the lower extremities that are equal bilaterally. Non-edematous. Moves all extremities well, sensation to all extremities are noted. Skin: Warm, dry, intact. Course 2 Vital Signs: Vital signs: Vital Signs Temperature 98.0 F 04/21/23 02:06 Pulse Rate 63 04/21/23 04:36 Respiratory Rate 22 H 04/21/23 04:36 Blood Pressure 119/63 04/21/23 04:24 Pulse Oximetry 93 04/21/23 04:36 Oxygen Delivery Me thod Room Air 04/21/23 03:42 MDM - General Adult Medical Decision Making Physical exam completed and documented I will obtain laboratory evaluation to include a CBC CMP and cardiac enzymes and treat accordingly. Differential Diagnosis Benign palpitations, uncontrolled hypertension, medication noncompliance, electrolyte abnormality, anxiety, Medical Records I reviewed the patient's medical records. Lab Data I reviewed the patient's lab results. 04/21/23 02:11 04/21/23 02:44 Radiology Impressions Chest X-Ray 04/21/23 02:24 IMPRESSION: 1. Mild cardiomegaly stable. 2. No acute focal pulmonary opacities are detected. Laboratory Results WBC 8.73 10^3/uL (3.29-11.43) 04/21/23 02:11 RBC 4.06 10^6/uL (3.85-5.65) 04/21/23 02:11 Hgb 12.80 g/dL (11.27-16.99) 04/21/23 02:11 Hct 41.3 % (36-47) 04/21/23 02:11 MCV 101.7 fl (85-98) H 04/21/23 02:11 MCH 31.5 pg (27-33) 04/21/23 02:11 MCHC 31.0 g/dL (30-55) 04/21/23 02:11 RDW 14.4 % (12.1-15.1) 04/21/23 02:11 Plt Count 207 10^3/cmm (157-399) 04/21/23 02:11 MPV 11.9 fL (7.4-10.4) H 04/21/23 02:11 Neut % (Auto) 57.4 % 04/21/23 02:11 Lymph % (Auto) 25.9 % 04/21/23 02:11 [place] % (Auto) 10.7 % 04/21/23 02:11 Eos % (Auto) 4.6 % 04/21/23 02:11 Baso % (Auto) 0.9 % 04/21/23 02:11 Neut # (Auto) 5.02 10^3/uL (1.8-7.7) 04/21/23 02:11 Lymph # (Auto) 2.3 10^3/uL (0.8-4.8) 04/21/23 02:11 [place] # (Auto) 0.9 10^3/uL (0.2-0.9) 04/21/23 02:11 Eos # (Auto) 0.4 10^3/uL (0.0-0.8) 04/21/23 02:11 Baso # (Auto) 0.1 10^3/uL (0.0-0.1) 04/21/23 02:11 Nucleated RBC % (auto) 0 % 04/21/23 02:11 Nucleated RBCs # 0.0 /100WBC 04/21/23 02:11 Sodium 139 mmol/L (136-145) 04/21/23 02:44 Potassium 3.9 mmol/L (3.5-5.1) 04/21/23 02:44 Chloride 101 mmol/L (98-107) 04/21/23 02:44 Carbon Dioxide 24 mmol/L (22-29) 04/21/23 02:44 Anion Gap 17.9 (5-19) 04/21/23 02:44 BUN 11 mg/dL (8-23) 04/21/23 02:44 Creatinine 1.0 mg/dL (0.5-0.9) H 04/21/23 02:44 GFR Calculation Not Reportable 04/21/23 02:44 Glucose 175 mg/dL (65-115) H 04/21/23 02:44 Calculated Osmolality 292 mOsm/kg (285-295) 04/21/23 02:44 Calcium 9.3 mg/dL (8.5-10.5) 04/21/23 02:44 Total Bilirubin 0.4 mg/dL (0.15-1.2) 04/21/23 02:44 AST 36 U/L (0-32) H 04/21/23 02:44 ALT 14 U/L (0-33) 04/21/23 02:44 Alkaline Phosphatase 75 U/L (35-105) 04/21/23 02:44 Troponin T Baseline 17 ng/L (0-10) H 04/21/23 02:11 Troponin T 120 Minute 15.52 ng/L (0-10) H 04/21/23 03:41 Delta Troponin T -1.48 ABS# (0-10) L 04/21/23 03:41 Total Protein 7.5 g/dL (6.6-8.7) 04/21/23 02:44 Albumin 4.0 g/dL (3.5-5.2) 04/21/23 02:44 Globulin 3.5 g/dL (1.3-4.6) 04/21/23 02:44 All radiology interpretation(s) finalized by discharge Discharge Plan Discharge Patient Disposition: Home Clinical Impression: Hypertension, uncontrolled Condition: Stable Prescriptions: No Action fluticasone propionate [Flonase Allergy Relief] 50 mcg/actuation spray,suspension 2 spray intranasal DAILY PRN Rx Instructions: administer into each nostril albuterol sulfate 90 mcg/actuation HFA aerosol inhaler 2 puff inhalation Q6H PRN chlorthalidone 25 mg tablet 25 mg PO DAILY Qty: 90 4RF Xarelto 20 mg tablet 20 mg PO DAILY Qty: 100 3RF primidone 50 mg tablet 100 mg PO .qhs Qty: 180 3RF irbesartan 75 mg tablet 150 mg PO DAILY propranolol 80 mg capsule,extended release 24hr See Rx Instructions .ROUTE .COMPLEX Dose Instruction: TAKE 1 CAPSULE BY MOUTH TWICE DAILY Rx Instructions: TAKE 1 CAPSULE BY MOUTH DAILY icosapent ethyl [Vascepa] 1 gram capsule 1 g PO BID Qty: 60 3RF furosemide 20 mg tablet 20 mg PO DAILY Qty: 90 2RF potassium chloride 10 mEq tablet,ER particles/crystals See Rx Instructions .ROUTE .COMPLEX Qty: 90 2RF Dose Instruction: TAKE 2 TABLETS BY MOUTH DAILY Rx Instructions: TAKE 1 TABLETS BY MOUTH DAILY atorvastatin 20 mg tablet 20 mg PO DAILY Qty: 90 0RF isosorbide mononitrate 60 mg tablet extended release 24 hr 60 mg PO DAILY Qty: 90 2RF allopurinol 300 mg tablet See Rx Instructions .ROUTE .COMPLEX Qty: 90 3RF Dose Instruction: TAKE 1 TABLET BY MOUTH DAILY Rx Instructions: TAKE 1 TABLET BY MOUTH DAILY Discharge Orders: Discharge ED (Routine); Ordered 04/21/23 Ordered By: Froilan Phillips Referrals: Bonnie Fleming FNP [Primary Care Provider] - Discharge Diet: Advance as tolerated Discharge Activity: Resume usual activity Patient Instructions: Opioid Safety, Pain Management Activity Restrictions/Additional Instructions: Activity Restrictions/Additional Instructions: Thank you for choosing [facility] for your healthcare needs today. Please realize that you were seen in the Emergency Department and that we are providing you with an emergency medical screening exam and this may not be a complete and all inclusive of all the testing and or medical work-up that you may need to determine your ailment or severity of your illness. It is very important that you follow-up as instructed with your Primary care provider or Specialist for additional evaluation and to discuss your medical treatment plan. You may return to the Emergency Department should you have concerns or if your condition changes or worsens in any way. Coding Level of Care Code ED Online Merchandiser for Hakeem Sebastian
[2023-04-21 04:24] VITALS: BP 119/63; PULSE 55; RESP 19; O2SAT 93
--- NOTE | 2023-04-21 04:25 | ECG_ITS ---
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 Measurements Intervals [place] Rate: 61 P: 60 LA: 139 QRS: 33 QRSD: 89 T: 37 QT: 426 QTc: 429 Interpretive Statements SINUS RHYTHM WITH OCCASIONAL SUPRAVENTRICULAR PREMATURE COMPLEXES Compared to ECG 03/09/2023 00:15:59 Sinus bradycardia no longer present Electronically Signed On 04-21-2023 13:44:06 MANAGING MEMBER by Barrington Galan M.D. [id number]
[2023-04-21 04:36] VITALS: PULSE 63; RESP 22; O2SAT 93
== END 2023-04-21 04:38 | disposition home or self-care (01) ==
PROVIDERS: Emergency Provider Internal Medicine; PCP Nurse Practitioner Family
DX: I11.9 Hypertensive heart disease without heart failure (principal); E78.5 Hyperlipidemia, unspecified
CPT/HCPCS: 71045; 80053; 84484; 85025; 93005; 99285

== ENCOUNTER → 2023-04-24 11:43 | Outpatient (BNVA) | payer MEDICARE, SELFPAY | PROVIDERS: PCP Nurse Practitioner Family; Visit Provider Internal Medicine Cardiovascular Disease | DX: I48.91 Unspecified atrial fibrillation (principal); E78.5 Hyperlipidemia, unspecified; R07.9 Chest pain, unspecified; I10 Essential (primary) hypertension; I25.10 Atherosclerotic heart disease of native coronary artery without angina pectoris; R00.1 Bradycardia, unspecified; R06.02 Shortness of breath; E78.1 Pure hyperglyceridemia; G25.0 Essential tremor; R42 Dizziness and giddiness; Z79.01 Long term (current) use of anticoagulants | CPT/HCPCS: 99214 ==

== ENCOUNTER → 2023-05-17 12:39 | Outpatient (BNVA) | payer MEDICARE, SELFPAY | PROVIDERS: PCP Nurse Practitioner Family; Visit Provider Internal Medicine Cardiovascular Disease | DX: Z45.09 Encounter for adjustment and management of other cardiac device (principal) | CPT/HCPCS: G2066 ==

== ENCOUNTER → 2023-06-30 13:01 | Outpatient (BNVA) | payer MEDICARE, SELFPAY | PROVIDERS: PCP Nurse Practitioner Family | DX: Z45.09 Encounter for adjustment and management of other cardiac device (principal) | CPT/HCPCS: 93298 ==

== ENCOUNTER 2023-07-28 23:15 | Inpatient (IN) | payer MEDICARE, SELFPAY ==
--- NOTE | 2023-07-28 23:17 | ECG_ITS ---
[facility] Test Date: 2023-07-28 Pat Name: Kadi Hernandez Department: Room: ICU02 Gender: Female Wood Box Maker: : 1945 Requested By: Froilan Phillips Order Number: [id number] MD: Julian Pitts M.D. Measurements Intervals [place] Rate: 68 P: -85 CT: 264 QRS: 12 QRSD: 94 T: 5 QT: 402 QTc: 430 Interpretive Statements SINUS RHYTHM WITH PREMATURE ATRIAL CONTRACTIONS LOW QRS VOLTAGE IN PRECORDIAL LEADS [QRS DEFLECTION < 1.0 mV IN CHEST LEADS] POSSIBLE ANTERIOR MYOCARDIAL INFARCTION , PROBABLY OLD [30 ms Q WAVE IN V3/V4, OR R < 0.2 mV IN V4] Compared to ECG 04/21/2023 03:39:42 Low QRS voltage now present Myocardial infarct finding now present Electronically Signed On 07-29-2023 15:53:18 CDT by Julian Pitts M.D. [id number] f
[2023-07-28 23:23] VITALS: BP 145/75; PULSE 66; RESP 18; TEMP 36.5; O2SAT 95; BMI 39.6
--- NOTE | 2023-07-28 23:25 | XRR_ITS ---
PROCEDURE INFORMATION: Exam: XR Chest Exam date and time: 07/28/2023 11:43 PM Age: 78 years old Clinical indication: Chest pressure; Prior surgery; Surgery date: 6+ months; Surgery type: Loop recorder. Gb; Patient HX: C/O chest pain TECHNIQUE: Imaging protocol: Radiologic exam of the chest. Views: 1 view. COMPARISON: CR (CHEST, ) 04/21/2023 2:32 AM FINDINGS: Lungs: Unremarkable. No consolidation. Pleural spaces: Unremarkable. No pleural effusion. No pneumothorax. Heart/Mediastinum: Cardiomegaly. Bones/joints: Unremarkable. XR/XR chest 1V portable [id number] IMPRESSION: 1. Negative for infiltrate. 2. Cardiomegaly.
--- NOTE | 2023-07-28 23:43 | W.ED.CHESTPA ---
Documented by User: MARY Johnson 07/28/23 23:50 HPI - Chest Pain General: Chief Complaint: Chest Pain Stated Complaint: Chest pain and dizzy head hurting Time Seen by Provider: 07/28/23 23:35 Source: patient Mode of arrival: ambulatory Limitations: no limitations History of Present Illness: Patient is a 78-year-old female who presents to the emergency department due to chest pain onset 1 day. Patient notes she was up and around doing things when she notes onset of pain to her left anterior chest. She states it has been intermittent since onset, and she currently is pain-free. She does note some associated dizziness and breathing difficulties. She states that she has had this pain before and has been evaluated for it similarly in the past, and notes that she would rather be safe than sorry. She denies any history of heart attacks or strokes, but does note that she has A-fib and sees a underwater trapper. She currently has a loop recorder. She also notes a history of high blood pressure. The pain that she has does not radiate and she stated that it was reproducible to palpation of the chest. She denies any palpitations, syncope, peripheral edema, or any other symptoms at this time. MD complaint: chest pain Onset (ago): day(s) Timing of current episode: now resolved Prior episodes: Yes Onset: during exertion Pain location: left chest Pain radiation: none Exacerbating factors: palpation Associated symptoms: Reports dyspnea; Deny abdominal pain, fever(s), nausea, palpitations or vomiting Review of Systems General: Reports: 10 or more systems reviewed and unremarkable except in HPI and below Const: Denies: fever(s), chills or fatigue Eyes: Denies: change in vision ENMT: Denies: throat pain, ear or mastoid pain or nasal discharge Card: Reports: chest pain; Denies: palpitations, swelling of feet/ankles or lightheadedness Resp: Reports: dyspnea; Denies: productive cough or wheezing GI: Denies: abdominal pain, nausea, vomiting, diarrhea or constipation : Denies: flank pain, difficulty voiding, dysuria or urinary frequency Musc: Denies: neck pain, back pain or joint pain Skin/Breast: Denies: rash Neuro: Reports: dizziness; Denies: headache(s), numbness in extremities or weakness in extremities PFS ED PFSH: Medical History HTN (hypertension) Gout Dyslipidemia Melanoma Atrial fibrillation Surgical History Hx of cataract extraction History of cholecystectomy Status post laparoscopic cholecystectomy (03/30/20) History of removal of ovarian cyst History of carpal tunnel release S/P complete hysterectomy H/O esophagogastroduodenoscopy 1977 H/O colonoscopy 2016 Family History Mother Melanoma Diabetes Stroke Father CAD (coronary artery disease) unknown age of onset, [place] at 62 Cancer Family/Other Cancer Grandmother Cancer Brother Diabetes Denies family history of Clotting disorder Dementia Chronic kidney disease (CKD) Suicide Anesthesia complication Bleeding disorder Lung disease Social History Smoking and tobacco/nicotine status: never used tobacco/nicotine Alcohol intake: never Substance/Drug Use: never Household members: spouse Marital status: Current occupational status: retired Physical Exam Const: COMMON NORMALS: no acute distress, patient oriented x3 and no limitations GENERAL APPEARANCE: cooperative, comfortable and well developed ORIENTATION/CONSCIOUSNESS: Yes awake, Yes oriented to person, Yes oriented to place and Yes oriented to time HENMT: COMMON NORMALS: normocephalic, atraumatic and hearing grossly normal bilaterally HEAD & SCALP: normocephalic and atraumatic Eye: COMMON NORMALS: Equal, round and reactive pupils present, EOMs intact bilaterally and conjunctivae normal CONJUNCTIVA: Yes conjunctivae normal PUPIL: Yes Equal, round and reactive pupils present Neck/C-Spine: COMMON NORMALS: full ROM, supple and no JVD Resp: COMMON NORMALS: normal respiratory effort, No retractions, No use of accessory muscles and clear to auscultation bilaterally AUSCULTATION: clear to auscultation bilaterally Cardio: COMMON NORMALS: no JVD, regular rate, No clicks present (Cardio), No murmurs present (Cardio) and No rub (Cardio) RATE: regular rate RHYTHM: abnormal rhythm irregularly irregular GI: COMMON NORMALS: Normal to inspection, nondistended, normoactive bowel sounds present, Soft to palpation and non-tender PALPATION: Yes Soft to palpation Extremity: COMMON NORMALS: normal to inspection, full ROM and capillary refill normal Neuro: COMMON NORMALS: patient oriented x3, moves all extremities, no focal motor deficits and no sensory deficits noted SENSORIUM/ORIENTATION: Yes oriented to person, Yes oriented to place and Yes oriented to time Psych: COMMON NORMALS: mental status grossly normal and Normal thought process present THOUGHT PROCESS: Normal thought process present Skin: COMMON NORMALS: no rashes or lesions noted GENERAL SKIN EXAM: no rashes or lesions noted Course Vital Signs: Vital signs: Vital Signs Temperature 97.7 F 07/28/23 23:23 Pulse Rate 67 07/29/23 01:48 Respiratory Rate 18 07/29/23 01:48 Blood Pressure 131/66 07/29/23 01:48 Pulse Oximetry 95 07/29/23 01:48 Oxygen Delivery Me thod Room Air 07/29/23 01:48 MDM - Chest Pain Lab Data 07/28/23 23:41 07/28/23 23:41 Radiology Impressions Chest X-Ray 07/28/23 23:25 IMPRESSION: 1. Negative for infiltrate. 2. Cardiomegaly. Laboratory Results WBC 8.67 10^3/uL (3.29-11.43) 07/28/23 23:41 RBC 3.98 10^6/uL (3.85-5.65) 07/28/23 23:41 Hgb 13.00 g/dL (11.27-16.99) 07/28/23 23:41 Hct 39.8 % (36-47) 07/28/23 23:41 MCV 100.0 fl (85-98) H 07/28/23 23:41 MCH 32.7 pg (27-33) 07/28/23 23:41 MCHC 32.7 g/dL (30-55) 07/28/23 23:41 RDW 14.8 % (12.1-15.1) 07/28/23 23:41 Plt Count 199 10^3/cmm (157-399) 07/28/23 23:41 MPV 11.9 fL (7.4-10.4) H 07/28/23 23:41 Neut % (Auto) 60.7 % 07/28/23 23:41 Lymph % (Auto) 25.0 % 07/28/23 23:41 Harris % (Auto) 9.6 % 07/28/23 23:41 Eos % (Auto) 3.2 % 07/28/23 23:41 Baso % (Auto) 1.2 % 07/28/23 23:41 Neut # (Auto) 5.26 10^3/uL (1.8-7.7) 07/28/23 23:41 Lymph # (Auto) 2.2 10^3/uL (0.8-4.8) 07/28/23 23:41 Harris # (Auto) 0.8 10^3/uL (0.2-0.9) 07/28/23 23:41 Eos # (Auto) 0.3 10^3/uL (0.0-0.8) 07/28/23 23:41 Baso # (Auto) 0.1 10^3/uL (0.0-0.1) 07/28/23 23:41 Nucleated RBC % (auto) 0 % 07/28/23 23:41 Nucleated RBCs # 0.0 /100WBC 07/28/23 23:41 Sodium 139 mmol/L (136-145) 07/28/23 23:41 Potassium 3.5 mmol/L (3.5-5.1) 07/28/23 23:41 Chloride 96 mmol/L (98-107) L 07/28/23 23:41 Carbon Dioxide 28 mmol/L (22-29) 07/28/23 23:41 Anion Gap 18.5 (5-19) 07/28/23 23:41 BUN 19 mg/dL (8-23) 07/28/23 23:41 Creatinine 1.1 mg/dL (0.5-0.9) H 07/28/23 23:41 GFR Calculation Not Reportable 07/28/23 23:41 Glucose 272 mg/dL (65-115) H 07/28/23 23:41 Calculated Osmolality 300 mOsm/kg (285-295) H 07/28/23 23:41 Calcium 9.0 mg/dL (8.5-10.5) 07/28/23 23:41 Total Bilirubin 0.3 mg/dL (0.15-1.2) 07/28/23 23:41 AST 38 U/L (0-32) H 07/28/23 23:41 ALT < 5 U/L (0-33) 07/28/23 23:41 Alkaline Phosphatase 80 U/L (35-105) 07/28/23 23:41 Troponin T Baseline 28 ng/L (0-10) H 07/28/23 23:41 Troponin T 120 Minute 26.45 ng/L (0-10) H 07/29/23 01:35 Delta Troponin T -1.55 ABS# (0-10) L 07/29/23 01:35 Total Protein 7.6 g/dL (6.6-8.7) 07/28/23 23:41 Albumin 4.3 g/dL (3.5-5.2) 07/28/23 23:41 Globulin 3.3 g/dL (1.3-4.6) 07/28/23 23:41 EKG Data EKG 1: I personally reviewed and interpreted this EKG as follows: EKG interpretation date: 07/28/23 EKG interpretation time: 23:47 Prior EKG tracings: available for review Interpretation: EKG reviewed by me. Electronic atrial pacemaker. Rate 68. No acute ST segment changes. No change from previous. Discharge Plan Discharge Patient Disposition: Home Clinical Impression: Pre-syncope Condition: Stable Prescriptions: No Action fluticasone propionate [Flonase Allergy Relief] 50 mcg/actuation spray,suspension 2 spray intranasal DAILY PRN Rx Instructions: administer into each nostril albuterol sulfate 90 mcg/actuation HFA aerosol inhaler 2 puff inhalation Q6H PRN chlorthalidone 25 mg tablet 25 mg PO DAILY Qty: 90 4RF Xarelto 20 mg tablet 20 mg PO DAILY Qty: 100 3RF primidone 50 mg tablet 100 mg PO .qhs Qty: 180 3RF irbesartan 75 mg tablet 150 mg PO DAILY propranolol 80 mg capsule,extended release 24hr See Rx Instructions .ROUTE .COMPLEX Dose Instruction: TAKE 1 CAPSULE BY MOUTH TWICE DAILY Rx Instructions: TAKE 1 CAPSULE BY MOUTH DAILY icosapent ethyl [Vascepa] 1 gram capsule 1 g PO BID Qty: 60 3RF furosemide 20 mg tablet 20 mg PO DAILY Qty: 90 2RF potassium chloride 10 mEq tablet,ER particles/crystals See Rx Instructions .ROUTE .COMPLEX Qty: 90 2RF Dose Instruction: TAKE 2 TABLETS BY MOUTH DAILY Rx Instructions: TAKE 1 TABLETS BY MOUTH DAILY atorvastatin 20 mg tablet 20 mg PO DAILY Qty: 90 0RF allopurinol 300 mg tablet See Rx Instructions .ROUTE .COMPLEX Qty: 90 3RF Dose Instruction: TAKE 1 TABLET BY MOUTH DAILY Rx Instructions: TAKE 1 TABLET BY MOUTH DAILY isosorbide mononitrate 60 mg tablet extended release 24 hr 60 mg PO DAILY Qty: 90 3RF Discharge Orders: Discharge ED (Routine); Ordered 07/29/23 Ordered By: Froilan Phillips Referrals: Bonnie Fleming FNP [Primary Care Provider] - Discharge Diet: Usual diet Discharge Activity: Resume usual activity Patient Instructions: Opioid Safety, Pain Management Activity Restrictions/Additional Instructions: Activity Restrictions/Additional Instructions: Thank you for choosing [facility] for your healthcare needs today. Please realize that you were seen in the Emergency Department and that we are providing you with an emergency medical screening exam and this may not be a complete and all inclusive of all the testing and or medical work-up that you may need to determine your ailment or severity of your illness. It is very important that you follow-up as instructed with your Primary care provider or Specialist for additional evaluation and to discuss your medical treatment plan. You may return to the Emergency Department should you have concerns or if your condition changes or worsens in any way. Coding Level of Care Code ED Wheelchair Rental Clerk for Chg Fwd Documented by User: Froilan Phillips MD 07/29/23 02:43 HPI - Chest Pain General: Chief Complaint: Chest Pain Stated Complaint: Chest pain and dizzy head hurting Time Seen by Provider: 07/28/23 23:35 [facility] ED PFSH: Medical History HTN (hypertension) Gout Dyslipidemia Melanoma Atrial fibrillation Surgical History Hx of cataract extraction History of cholecystectomy Status post laparoscopic cholecystectomy (03/30/20) History of removal of ovarian cyst History of carpal tunnel release S/P complete hysterectomy H/O esophagogastroduodenoscopy 1977 H/O colonoscopy 2016 Family History Mother Melanoma Diabetes Stroke Father CAD (coronary artery disease) unknown age of onset, [place] at 62 Cancer Family/Other Cancer Grandmother Cancer Brother Diabetes Denies family history of Clotting disorder Dementia Chronic kidney disease (CKD) Suicide Anesthesia complication Bleeding disorder Lung disease Social History Smoking and tobacco/nicotine status: never used tobacco/nicotine Alcohol intake: never Substance/Drug Use: never Household members: spouse Marital status: Current occupational status: retired Course Vital Signs: Vital signs: Vital Signs Temperature 97.7 F 07/28/23 23:23 Pulse Rate 67 07/29/23 01:48 Respiratory Rate 18 07/29/23 01:48 Blood Pressure 131/66 07/29/23 01:48 Pulse Oximetry 95 07/29/23 01:48 Oxygen Delivery Me thod Room Air 07/29/23 01:48 MDM - Chest Pain Medical Decision Making I discussed the patient's history of present illness, physical exam findings, pertinent labs, pertinent radiographic exams and plan of care with the midlevel provider. I did personally have a [id number] evaluation and discussion with the patient regarding the plan of care and the need for further regarding follow-up with her primary care provider Medical Records I reviewed the patient's medical records. Lab Data I reviewed the patient's lab results. 07/28/23 23:41 07/28/23 23:41 Radiology Impressions Chest X-Ray 07/28/23 23:25 IMPRESSION: 1. Negative for infiltrate. 2. Cardiomegaly. Laboratory Results WBC 8.67 10^3/uL (3.29-11.43) 07/28/23 23:41 RBC 3.98 10^6/uL (3.85-5.65) 07/28/23 23:41 Hgb 13.00 g/dL (11.27-16.99) 07/28/23 23:41 Hct 39.8 % (36-47) 07/28/23 23:41 MCV 100.0 fl (85-98) H 07/28/23 23:41 MCH 32.7 pg (27-33) 07/28/23 23:41 MCHC 32.7 g/dL (30-55) 07/28/23 23:41 RDW 14.8 % (12.1-15.1) 07/28/23 23:41 Plt Count 199 10^3/cmm (157-399) 07/28/23 23:41 MPV 11.9 fL (7.4-10.4) H 07/28/23 23:41 Neut % (Auto) 60.7 % 07/28/23 23:41 Lymph % (Auto) 25.0 % 07/28/23 23:41 Harris % (Auto) 9.6 % 07/28/23 23:41 Eos % (Auto) 3.2 % 07/28/23 23:41 Baso % (Auto) 1.2 % 07/28/23 23:41 Neut # (Auto) 5.26 10^3/uL (1.8-7.7) 07/28/23 23:41 Lymph # (Auto) 2.2 10^3/uL (0.8-4.8) 07/28/23 23:41 Harris # (Auto) 0.8 10^3/uL (0.2-0.9) 07/28/23 23:41 Eos # (Auto) 0.3 10^3/uL (0.0-0.8) 07/28/23 23:41 Baso # (Auto) 0.1 10^3/uL (0.0-0.1) 07/28/23 23:41 Nucleated RBC % (auto) 0 % 07/28/23 23:41 Nucleated RBCs # 0.0 /100WBC 07/28/23 23:41 Sodium 139 mmol/L (136-145) 07/28/23 23:41 Potassium 3.5 mmol/L (3.5-5.1) 07/28/23 23:41 Chloride 96 mmol/L (98-107) L 07/28/23 23:41 Carbon Dioxide 28 mmol/L (22-29) 07/28/23 23:41 Anion Gap 18.5 (5-19) 07/28/23 23:41 BUN 19 mg/dL (8-23) 07/28/23 23:41 Creatinine 1.1 mg/dL (0.5-0.9) H 07/28/23 23:41 GFR Calculation Not Reportable 07/28/23 23:41 Glucose 272 mg/dL (65-115) H 07/28/23 23:41 Calculated Osmolality 300 mOsm/kg (285-295) H 07/28/23 23:41 Calcium 9.0 mg/dL (8.5-10.5) 07/28/23 23:41 Total Bilirubin 0.3 mg/dL (0.15-1.2) 07/28/23 23:41 AST 38 U/L (0-32) H 07/28/23 23:41 ALT < 5 U/L (0-33) 07/28/23 23:41 Alkaline Phosphatase 80 U/L (35-105) 07/28/23 23:41 Troponin T Baseline 28 ng/L (0-10) H 07/28/23 23:41 Troponin T 120 Minute 26.45 ng/L (0-10) H 07/29/23 01:35 Delta Troponin T -1.55 ABS# (0-10) L 07/29/23 01:35 Total Protein 7.6 g/dL (6.6-8.7) 07/28/23 23:41 Albumin 4.3 g/dL (3.5-5.2) 07/28/23 23:41 Globulin 3.3 g/dL (1.3-4.6) 07/28/23 23:41 All radiology interpretation(s) finalized by discharge Discharge Plan Discharge Patient Disposition: Home Clinical Impression: Pre-syncope Condition: Stable Prescriptions: No Action fluticasone propionate [Flonase Allergy Relief] 50 mcg/actuation spray,suspension 2 spray intranasal DAILY PRN Rx Instructions: administer into each nostril albuterol sulfate 90 mcg/actuation HFA aerosol inhaler 2 puff inhalation Q6H PRN chlorthalidone 25 mg tablet 25 mg PO DAILY Qty: 90 4RF Xarelto 20 mg tablet 20 mg PO DAILY Qty: 100 3RF primidone 50 mg tablet 100 mg PO .qhs Qty: 180 3RF irbesartan 75 mg tablet 150 mg PO DAILY propranolol 80 mg capsule,extended release 24hr See Rx Instructions .ROUTE .COMPLEX Dose Instruction: TAKE 1 CAPSULE BY MOUTH TWICE DAILY Rx Instructions: TAKE 1 CAPSULE BY MOUTH DAILY icosapent ethyl [Vascepa] 1 gram capsule 1 g PO BID Qty: 60 3RF furosemide 20 mg tablet 20 mg PO DAILY Qty: 90 2RF potassium chloride 10 mEq tablet,ER particles/crystals See Rx Instructions .ROUTE .COMPLEX Qty: 90 2RF Dose Instruction: TAKE 2 TABLETS BY MOUTH DAILY Rx Instructions: TAKE 1 TABLETS BY MOUTH DAILY atorvastatin 20 mg tablet 20 mg PO DAILY Qty: 90 0RF allopurinol 300 mg tablet See Rx Instructions .ROUTE .COMPLEX Qty: 90 3RF Dose Instruction: TAKE 1 TABLET BY MOUTH DAILY Rx Instructions: TAKE 1 TABLET BY MOUTH DAILY isosorbide mononitrate 60 mg tablet extended release 24 hr 60 mg PO DAILY Qty: 90 3RF Discharge Orders: Discharge ED (Routine); Ordered 07/29/23 Ordered By: Froilan Phillips Referrals: Bonnie Fleming FNP [Primary Care Provider] - Discharge Diet: Usual diet Discharge Activity: Resume usual activity Patient Instructions: Opioid Safety, Pain Management Activity Restrictions/Additional Instructions: Activity Restrictions/Additional Instructions: Thank you for choosing [facility] for your healthcare needs today. Please realize that you were seen in the Emergency Department and that we are providing you with an emergency medical screening exam and this may not be a complete and all inclusive of all the testing and or medical work-up that you may need to determine your ailment or severity of your illness. It is very important that you follow-up as instructed with your Primary care provider or Specialist for additional evaluation and to discuss your medical treatment plan. You may return to the Emergency Department should you have concerns or if your condition changes or worsens in any way. Coding Level of Care Code ED Wheelchair Rental Clerk for Hakeem Sebastian
[2023-07-28 23:57] LABS: Basophils # 0.1 10^3/uL (0.0-0.1); Basophils % 1.2 %; Eosinophils # 0.3 10^3/uL (0.0-0.8); Eosinophils % 3.2 %; Hematocrit 39.8 % (36-47); Lymphocytes # 2.2 10^3/uL (0.8-4.8); Mean Corpuscular HGB Conc 32.7 g/dL (30-55); Mean Corpuscular Hemoglobin 32.7 pg (27-33); Mean Platelet Volume 11.9 fL (7.4-10.4); Monocytes # 0.8 10^3/uL (0.2-0.9); Monocytes % 9.6 %; Neutrophils # 5.26 10^3/uL (1.8-7.7); Neutrophils % 60.7 %; Nucleated Red Blood Cells % 0 %; Platelet Count 199 10^3/cmm (157-399); Red Blood Count 3.98 10^6/uL (3.85-5.65); Red Cell Distribution Width 14.8 % (12.1-15.1); White Blood Count 8.67 10^3/uL (3.29-11.43)
[2023-07-29] VITALS (9 sets, daily range): BP systolic 125–157; BP diastolic 58–91; PULSE 61–83; RESP 18–30; TEMP 36.6–37.1; O2SAT 94–95; BMI 42.9
[2023-07-29 00:10] LABS: Alanine Aminotransferase < 5 U/L (0-33); Albumin Level 4.3 g/dL (3.5-5.2); Alkaline Phosphatase 80 U/L (35-105); Anion Gap 18.5 (5-19); Aspartate Amino Transferase 38 U/L (0-32); Blood Urea Nitrogen 19 mg/dL (8-23); Carbon Dioxide 28 mmol/L (22-29); Chloride 96 mmol/L (98-107); Creatinine Clr Calc Pharmacy 44.4367; Globulin 3.3 g/dL (1.3-4.6); Glucose 272 mg/dL (65-115); Osmolality Calculated 300 mOsm/kg (285-295); Potassium 3.5 mmol/L (3.5-5.1); Sodium 139 mmol/L (136-145); Total Bilirubin 0.3 mg/dL (0.15-1.2); Total Protein 7.6 g/dL (6.6-8.7)
[2023-07-29 00:11] LABS: Troponin(5th) Baseline 28 ng/L (0-10)
--- NOTE | 2023-07-29 01:21 | ECG_ITS ---
[facility] Test Date: 2023-07-29 Pat Name: Kadi Hernandez Department: Room: Gender: Female Network Operations Technician: : 1945 Requested By: Froilan Phillips Order Number: [id number] MD: Julian Pitts M.D. Measurements Intervals [place] Rate: 67 P: 71 TX: 140 QRS: 27 QRSD: 83 T: 24 QT: 389 QTc: 412 Interpretive Statements SINUS RHYTHM NONSPECIFIC T-WAVE ABNORMALITY Compared to ECG 04/21/2023 03:39:42 T-wave abnormality now present Electronically Signed On 07-29-2023 15:58:16 CDT by Julian Pitts M.D. [id number]
[2023-07-29 01:56] LABS: Troponin 5 2HR 26.45 ng/L (0-10)
[2023-07-29 01:57] LABS: Troponin 5 2HR Delta -1.55 ABS# (0-10)
--- NOTE | 2023-07-29 02:59 | P.HP_ITS ---
Providers/Chief Complaint 2 Primary Care Provider: CEDRIC Ayon Chief Complaint: Chest pain and dizzy head hurting History of Present Illness Kadi Hernandez is a 78 year old female has a loop recorder which was placed by Dr. Montano for her persistent dizziness syncopal event. Presented to the hospital today for 2 presyncopal events at home in the ER she had bradycardic episode down to 30s transiently then she would convert back to normal sinus rhythm. Patient is stating that she had 2 presyncopal events when she feels lightheaded and dizzy and leaned against the wall but she never had syncopal event. She did experience left-sided chest discomfort which she is describing as achy, it only lasted for about a minute and then improved, she denies current shortness of breath, fever, nausea, diarrhea. Her last dose of Xarelto was at 8 AM 07/27, she also takes propranolol on daily basis. Patient is stating that her tremors are pretty bad that she would spill food and that is embarrassing. She is not complaining of chest pain at the time of evaluation, troponins without significant delta She is hypokalemic, hypomagnesemic Troponin trending down Requested B12, TSH, Review of Systems 2 Const: Denies: fever(s) Eyes: Denies: change in vision ENMT: Denies: throat pain Card: Reports: chest pain Resp: Denies: dyspnea GI: Denies: abdominal pain : Denies: flank pain Musc: Denies: neck pain Skin/Breast: Denies: rash Medications/Allergies Home Medications Medication Instructions Recorded Confirmed Last Taken Type albuterol sulfate 90 mcg/actuation 2 puff inhalation Q6H PRN 05/03/21 04/24/23 Unknown History aerosol inhaler fluticasone propionate 50 2 spray intranasal DAILY PRN 09/15/21 04/24/23 Unknown History mcg/actuation nasal spray,suspension (Flonase Allergy Relief) atorvastatin 20 mg tablet 20 mg PO DAILY #90 tabs 10/20/21 04/24/23 Unknown Rx primidone 50 mg tablet 100 mg (2 x 50 mg) PO .qhs #180 02/09/23 04/24/23 Unknown Rx tabs furosemide 20 mg tablet 20 mg PO DAILY #90 tabs 03/27/23 04/24/23 Unknown Rx icosapent ethyl 1 gram capsule 1 g PO BID #60 caps 03/27/23 04/24/23 Unknown Rx (Vascepa) irbesartan 75 mg tablet 150 mg PO DAILY 03/27/23 04/24/23 Unknown History potassium chloride 10 mEq See Rx Instructions .Route 03/27/23 04/24/23 Unknown Rx tablet,extended release(part/cryst) .COMPLEX #90 tabs propranolol 80 mg capsule,24 See Rx Instructions .Route .COMPLEX 03/27/23 04/24/23 Unknown History hr,extended release allopurinol 300 mg tablet See Rx Instructions .Route 04/12/23 04/24/23 Unknown Rx .COMPLEX #90 tabs chlorthalidone 25 mg tablet 25 mg PO DAILY #90 tabs 04/24/23 04/24/23 Unknown Rx rivaroxaban 20 mg tablet (Xarelto) 20 mg PO DAILY #100 tabs 04/24/23 04/24/23 Unknown Rx isosorbide mononitrate 60 mg 60 mg PO DAILY #90 tabs 07/13/23 Unknown Rx tablet,extended release 24 hr Allergies Allergy/AdvReac Type Severity Reaction Status Date / Time lisinopril Allergy coughing Verified 07/28/23 23:29 PFSH Acute 2 PFSH: Medical History HTN (hypertension) Gout Dyslipidemia Melanoma Atrial fibrillation Surgical History Hx of cataract extraction History of cholecystectomy Status post laparoscopic cholecystectomy (03/30/20) History of removal of ovarian cyst History of carpal tunnel release S/P complete hysterectomy H/O esophagogastroduodenoscopy 1977 H/O colonoscopy 2016 Family History Mother Melanoma Diabetes Stroke Father CAD (coronary artery disease) unknown age of onset, [place] at 62 Cancer Family/Other Cancer Grandmother Cancer Brother Diabetes Denies family history of Clotting disorder Dementia Chronic kidney disease (CKD) Suicide Anesthesia complication Bleeding disorder Lung disease Social History Smoking and tobacco/nicotine status: never used tobacco/nicotine Alcohol intake: never Substance/Drug Use: never Household members: spouse Marital status: Current occupational status: retired Vitals/I&O/Wt Last Vital Signs Temp 97.7 F 07/28/23 23:23 Pulse 67 07/29/23 01:48 Resp 18 07/29/23 01:48 BP 131/66 07/29/23 01:48 Pulse Ox 95 07/29/23 01:48 O2 Del Method Room Air 07/29/23 01:48 Weight last 48 hrs Weight 95.254 kg Physical Exam 2 Narrative: Patient is awake and alert No active chest pain Sinus rhythm Heart rate in 60s Hemodynamic stable Pleasant cooperative Nonfocal neuroexam Looks euvolemic Laying supine without any hemodynamic instability Pleasant cooperative Nonfocal neuroexam Variable S1-S2 Resting tremors Data 07/29/23 04:14 07/29/23 04:14 A&P Assessment and plan (1) Pre-syncope: (2) HTN (hypertension): Qualifiers: Hypertension type: unspecified Qualified Code(s): I10 - Essential (primary) hypertension (3) Chest pain: (4) Atrial fibrillation: Qualifiers: Atrial fibrillation type: unspecified Qualified Code(s): I48.91 - Unspecified atrial fibrillation (5) Bradycardia: (6) Gout: Qualifiers: Gout site: unspecified site Gout etiology: unspecified cause C hronicity: chronic Presence of tophus: without tophus Qualified Code(s): M 1A.9XX0 - Chronic gout, unspecified, without tophus (tophi) (7) Essential tremor: Plan Pre-Syncopal event Patient has a loop recorder Heart rate: 30s noted in the ER Previous history of A-fib Take Xarelto, last dose was 8 AM 07/27 Hold anticoagulating agent for now Patient will need cardiology evaluation in the morning for pacemaker indication however I do believe this could be an effect of propranolol which I would hold for now since admission her heart rate has not dipped down to low 30s Currently hemodynamically stable No active chest pain EKG showing A-fib without RVR, rate controlled Patient takes propranolol and Xarelto which I will hold for now She takes propranolol for essential tremor Stating that she feels embarrassed because her tremors are very bad, would suggest alternative for now History of hypertension, Dr. Galan has seen her recently, added chlorthalidone for hypertension Full code Cardiac diet Hold DVT prophylaxis, use SCDs for now Hypomagnesemia: Replenished Hypokalemia: Replenish Attestations 2 Medical Necessity Statement*: More than 2 midnights anticipated Diagnoses Pre-syncope R55 Essential hypertension I10 Hypertension type: unspecified Chest pain, unspecified type R07.9 Atrial fibrillation, unspecified type I48.91 Atrial fibrillation type: unspecified Bradycardia R00.1 Chronic gout without tophus, unspecified cause, unspecified site M1A.[id number] Gout site: unspecified site Gout etiology: unspecified cause Chronicity: chronic Presence of tophus: without tophus Essential tremor G25.0
--- NOTE | 2023-07-29 03:52 | USCV_ITS ---
Kadi Hernandez Age: 78 Gender: F : 1945 Exam Date: 07/29/2023 10:27 Ordering Phys: Wendie Jin MD Technologist: Simon Rossi Exam Location: [facility] [place] Indication: sss BP: / HR: 67 Rhythm: Sinus Technical Quality: Adequate MEASUREMENTS (Male / Female) Normal Values 2D ECHO LVOT Diameter 2.1 cm LV Ejection Fraction MOD 2C 74.2 % LV Ejection Fraction 2C AL 73.8 % LA Diameter 3.6 cm RA Systolic Volume 4C AL 35.9 ml RA Systolic Volume 4C MOD 35.5 ml Aorta at Sinotubular Diameter 2.0 cm M-MODE LA Ao Ratio MM 1.3 AV Cusp Separation MM 1.6 cm DOPPLER AV Peak Velocity 178.0 cm/s LVOT Peak Velocity 102.0 cm/s AV Area Cont Eq vti 1.7 cm squared AV Area Cont Eq pk 1.9 cm squared MV Peak Velocity 102.0 cm/s MV Area PHT 3.1 cm squared Mitral E to A Ratio 1.0 TV Peak Velocity 291.5 cm/s TR Peak Velocity 309.0 cm/s TR Peak Gradient 38.2 mmHg TR Mean Velocity 240.0 cm/s TR Mean Gradient 25.1 mmHg TR Velocity Time Integral 70.4 cm PV Peak Velocity 106.0 cm/s RV Ejection Time 0.3 s FINDINGS Left Ventricle Left ventricle is normal in size. LV systolic function is normal with EF of 60 to 65%. No regional wall motion abnormalities are seen. Grade 2 diastolic dysfunction Right Ventricle Normal in size and function Right Atrium Normal in size Left Atrium Normal in size Mitral Valve Grossly normal. Trace mitral regurgitation Aortic Valve Aortic valve is thickened. No significant stenosis or regurgitation. Tricuspid Valve Mild tricuspid regurgitation. Insufficient TR jet to evaluate RVSP Pulmonic Valve Not well visualized Pericardium Normal Aorta Normal in size IVC Not visualized CONCLUSIONS Technically limited quality echocardiogram because of poor ultrasonic windows. LV systolic function is normal with EF of 60 to 65%. Grade 2 diastolic dysfunction Trace mitral regurgitation. Mild tricuspid regurgitation. Compared to prior echocardigoram from 2020, no significant changes are seen. Julian Pitts MD (Electronically Signed) Final Date: 29 July 2023 12:18 S
[2023-07-29 05:16] LABS: Basophils # 0.1 10^3/uL (0.0-0.1); Basophils % 0.9 %; Eosinophils # 0.3 10^3/uL (0.0-0.8); Eosinophils % 3.1 %; Hematocrit 38.9 % (36-47); Lymphocytes # 2.6 10^3/uL (0.8-4.8); Lymphocytes % 26.3 %; Mean Corpuscular HGB Conc 31.6 g/dL (30-55); Mean Corpuscular Hemoglobin 32.5 pg (27-33); Mean Corpuscular Volume 102.6 fl (85-98); Mean Platelet Volume 12.6 fL (7.4-10.4); Monocytes % 9.6 %; Neutrophils # 5.87 10^3/uL (1.8-7.7); Neutrophils % 59.6 %; Nucleated Red Blood Cells % 0 %; Platelet Count 206 10^3/cmm (157-399); Red Blood Count 3.79 10^6/uL (3.85-5.65); Red Cell Distribution Width 14.9 % (12.1-15.1); White Blood Count 9.87 10^3/uL (3.29-11.43)
[2023-07-29 05:48] LABS: Anion Gap 20.6 (5-19); Blood Urea Nitrogen 19 mg/dL (8-23); C Reactive Protein 11.8 mg/L (0.0-4.9); Calcium 8.6 mg/dL (8.5-10.5); Carbon Dioxide 25 mmol/L (22-29); Chloride 98 mmol/L (98-107); Glucose 215 mg/dL (65-115); Magnesium 1.5 mg/dL (1.7-2.3); Osmolality Calculated 299 mOsm/kg (285-295); Phosphorus 2.8 mg/dL (2.5-4.5); Potassium 3.6 mmol/L (3.5-5.1); Sodium 140 mmol/L (136-145)
[2023-07-29 05:50] LABS: Thyroid Stimulating Hormone 3.23 uIU/mL (0.27-4.20); Vitamin B12 278 pg/mL (232-1245)
[2023-07-29 06:32] LABS: Troponin 5 6HR 23.33 ng/L (0-10); Troponin 5 6HR Delta -4.67 ng/L (0-12)
[2023-07-29 07:31] LABS: Add Urine Microscopic? YES; Bilirubin Urine Neg (Negative); Blood Urine Neg (Negative); Glucose Urine UA Norm (Normal); Ketones Urine Negative (Negative); Leukocyte Esterase Urine 2+ (Negative); Nitrate Urine Negative (Negative); Protein Urine Neg (Negative); Specific Gravity, Urine 1.025 (1.005-1.030); Urine Appearance Cloudy (CLEAR); Urine Color Yellow (Yellow); Urobilinogen Urine Neg (Negative); pH Urine 5 (5-7)
[2023-07-29 07:33] LABS: Bacteria Urine 3+ /hpf; RBC Urine 0-4 /hpf (0-2); Squamous Epithelial Cell Urine 15-25 /hpf (0-5); WBC Urine >100 /hpf (0-5)
[2023-07-29 07:34] LABS: Add Urine Culture? No
[2023-07-29] MEDS: potassium chloride ER 20 mEq Tablet PO (08:18)
[2023-07-29] MEDS: chlorthalidone 25 mg Tablet 12.5 MG PO (08:18)
[2023-07-29] MEDS: allopurinol 100 mg Tablet PO (08:18)
[2023-07-29] MEDS: magnesium sulfate premix 2 GM/50 ML PIGGYBACK IV (08:19)
[2023-07-29] MEDS: losartan 50 mg Tablet 25 MG PO (08:19)
--- NOTE | 2023-07-29 09:04 | PC.PHAR ---
Addendum entered by Anastasia Jin 07/29/23 09:11: vascepa 1g bid filled 07/03/23 30d/s Original Note: pt states she takes care of her own medications-pt states she takes her allopurinol 300mg daily prn ext shows last filled 05/10/23 90d/s 300mg daily-pt states she takes her lasix 20mg daily prn ext shows last filled 05/29/23 90d/s-pt states she takes her vascepa 1g daily ext shows last filled 07/03/23 30d/s-pt states she takes kcl er 10meq daily prn ext shows last filled 10meq 05/31/23/ 100d/s #200-pt state she takes primidone 50mg hs ext shows last filled 05/08/23 90d/s 50mg tabs take 2 tabs hs-pt states she hasnt taken her xarelto 20mg daily in about 2 weeks pt states she didnt think she needed it-pt states takes clartin 10mg daily prn ext shows last filled 06/26/23 90d/s 10mg daily-pt states she takes carbidopa/levodopa 10-100mg one tab qam ext shows last filled 06/12/23 90d/s one tab tid-pt states she is not taking donepezil 10mg one tab daily ext shows last filled 07/10/23 14d/s ext also shows a 5mg daily filled 06/07/23 30d/s-notes are made in the pharmacy comments
--- NOTE | 2023-07-29 10:59 | CTR_ITS ---
PROCEDURE INFORMATION: Exam: CT Head Without Contrast Exam date and time: 07/29/2023 2:58 PM Age: 78 years old Clinical indication: Syncope and collapse TECHNIQUE: Imaging protocol: Computed tomography of the head without contrast. Radiation optimization: All CT scans at this facility use at least one of these dose optimization techniques: automated exposure control; mA and/or kV adjustment per patient size (includes targeted exams where dose is matched to clinical indication); or iterative reconstruction. COMPARISON: US ROR carotid duplex BI 03/27/2023 11:25 AM RADIATION DOSE METRICS: Total DLP (mGy-cm): 889.18 FINDINGS: Brain: No acute confluent lobar ischemic infarct. No acute intracranial hemorrhage. Cerebral ventricles: The ventricles and sulci are prominent in size compatible with mild atrophy. Paranasal sinuses: Visualized sinuses are unremarkable. No fluid levels. Mastoid air cells: Visualized mastoid air cells are well aerated. Bones/joints: Unremarkable. No acute fracture. Soft tissues: Mild mucoperiosteal fluid level within the right sphenoid sinus. CT/CT head wo con* 16081 IMPRESSION: 1. No acute intracranial abnormality. If symptoms persist, consider further evaluation with MRI, if MRI is clinically safe to obtain. 2. Right sphenoid sinus disease.
[2023-07-29] MEDS: heparin 5,000 unit/mL INJ 1 mL 5000 UNIT SUBCUT (12:29)
[2023-07-29] MEDS: cefTRIAXone 1,000 MG in sodium chloride 0.9% (plus) 50 ML 100 MG IV (12:29)
[2023-07-29 12:35] LABS: Iron 50 ug/dL (37-145); Percent Saturation 19.1 % (20-50); Total Iron Binding Capacity 261 mcg/dl; Unsaturated Iron Binding 211 ug/dL (112-347)
[2023-07-29] MEDS: sodium chloride 0.9% 1,000 ML 50 ML IV (12:37)
[2023-07-29 12:38] LABS: D Dimer <= 0.27 ug/mLFEU (0-0.59)
[2023-07-29 12:43] LABS: Procalcitonin 0.19 ng/mL (0-0.5)
[2023-07-29 13:04] LABS: Magnesium 2.1 mg/dL (1.7-2.3)
--- NOTE | 2023-07-29 13:50 | PC.NURSE ---
interrogation done at 1350
--- NOTE | 2023-07-29 15:14 | PC.NURSE ---
Pt was taken to CT via wheelchair on room air then taken to CSU. Tolerated well. All belongings placed in room. Family aware.
--- NOTE | 2023-07-29 15:50 | P.PN_ITS ---
Subjective 2 Subjective: Admitted overnight. H&P and labs appreciated. Today morning seen in ICU. Laying comfortably in bed. Awake and alert and able to have conversation. Son at bedside. Denies any nausea, vomiting, headache. Vitals/I&O/Wt Last Vital Signs Temp 97.7 F 07/28/23 23:23 Pulse 61 07/29/23 14:00 Resp 23 H 07/29/23 03:26 BP 128/58 07/29/23 08:19 Pulse Ox 95 07/29/23 03:26 O2 Del Method Room Air 07/29/23 03:44 07/29/23 07/29/23 07/29/23 06:59 14:59 22:59 Intake Total 460 / 460 Balance 460 / 460 Weight last 48 hrs Weight 102.965 kg Weight 95.254 kg Physical Exam 2 Narrative: General: No acute distress, AO x3, pleasant, mildly forgetful, mildly dehydrated, tremors HEENT: PERRLA, pupils bilaterally equal and reactive Chest: Normal vesicular breath sounds, no added sounds, equal good air entry bilaterally CVS: S1-S2 regular, no murmurs, no tachycardia, no gallops, no rubs Abdomen: Soft, nontender, no organomegaly, bowel sounds present Neuro: No focal deficits, no facial deformity, AO x3, power 5/5 in all limbs Data 07/29/23 04:14 07/29/23 04:14 Micro: Microbiology 07/29/23 11:48 Blood Culture - Preliminary Blood SPECIMEN COLLECTED 07/29/23 11:50 Blood Culture - Preliminary Blood SPECIMEN COLLECTED A&P Assessment and plan (1) Pre-syncope: (2) Bradycardia: (3) Atrial fibrillation: Qualifiers: Atrial fibrillation type: unspecified Qualified Code(s): I48.91 - Unspecified atrial fibrillation (4) Chest pain: (5) HTN (hypertension): Qualifiers: Hypertension type: unspecified Qualified Code(s): I10 - Essential (primary) hypertension (6) Gout: Qualifiers: Gout site: unspecified site Gout etiology: unspecified cause C hronicity: chronic Presence of tophus: without tophus Qualified Code(s): M 1A.9XX0 - Chronic gout, unspecified, without tophus (tophi) (7) Essential tremor: (8) UTI (urinary tract infection): Plan Pre-Syncopal event: Most likely in setting of significant bradycardia. Patient was found to have heart rates in 30s as per the ER physician and son at bedside. Currently heart rate stable. Patient has history of A-fib with RVR and takes propranolol on as-needed basis for tremors. Patient has been taking propanol at least twice daily for last couple of weeks and sometimes thrice daily as well. Interrogate loop recorder Did complain of chest pain which has been ongoing on and off for last few months. Also had chest pain around presyncope. Last Lexiscan stress test on October 2020 which was negative for ischemia. Echocardiogram done this time shows EF of 60 to 65% without regional wall motion malady, grade 2 diastolic dysfunction with trace MR and mild TR. Telemetry. Electrolytes replenished. Keep potassium around 4, magnesium around 2. Patient states she would want to continue propanol as that helps her a lot with her tremors. She states she has been bothered by it For a long time and is interfering with her lifestyle and is embarrassing as she is not even able to keep her food with the hand and wants to continue taking propranolol. She is agreeable to pacemaker if needed. Will consult cardiology for further recommendations. Patient might need further workup of ACS as well. Troponin cycled negative for now. UTI: Denies any dysuria. UA positive for UTI. Follow-up urine culture. Check blood culture as patient might be going for pacemaker. Start on IV Rocephin for now. A-fib with controlled rate: Not bradycardic anymore. Continue telemonitoring. Hold off on Xarelto as patient might need to go for pacemaker implantation. Last dose on 07/27. JENN: Baseline creatinine seems to be around 0.2-0.9. Currently 1.2. Could be in setting of dehydration. Start on normal saline at 75 cc/h for 1 bag. Monitor BMP daily for now. Medical reconciliation done for nephrotoxic drugs. Hypertension: Goal blood pressure less than 140/90 mmHg. Blood pressure stable for now. Continue with home dose of Imdur. Holding off on chlorthalidone, ARB and propanol for now for various reasons. Restart other home medications including carbidopa-levodopa, statin, Imdur, primidone. CODE STATUS: Discussed in detail with the patient. Son will be the DPOA. She does not want any heroic measures, chest compressions or mechanical ventilation but is okay with pacemaker if needed. CODE STATUS changed to DNR/DNI. Cardiac diet. Heparin 5000 every 12 hourly for DVT prophylaxis Protonix for PUD prophylaxis Transfer to CSU. Attestations 2 Medical Necessity Statement*: Requires further hospitalization for management of presyncope secondary to bradycardia in a patient with history of A-fib with RVR, JENN, UTI while she is investigated for placement of palpitation Diagnoses Pre-syncope R55 Bradycardia R00.1 Atrial fibrillation, unspecified type I48.91 Atrial fibrillation type: unspecified Chest pain, unspecified type R07.9 Essential hypertension I10 Hypertension type: unspecified Chronic gout without tophus, unspecified cause, unspecified site [id number].[id number] Gout site: unspecified site Gout etiology: unspecified cause Chronicity: chronic Presence of tophus: without tophus Essential tremor G25.0 UTI (urinary tract infection) N39.0
[2023-07-29 18:59] LABS: Amphetamines Screen Urine Negative (Negative); Barbiturates Screen Urine Positive (Negative); Benzodiazepines Screen Urine Negative (Negative); Cocaine Screen Urine Negative (Negative); Opiate Screen Urine Negative (Negative); PCP Screen Urine Negative (Negative); THC Screen Urine Negative (Negative)
[2023-07-29] MEDS: atorvastatin 40 mg Tablet 20 MG PO (21:21)
[2023-07-29] MEDS: primidone 50 mg Tablet PO (21:21)
[2023-07-30] VITALS (10 sets, daily range): BP systolic 112–147; BP diastolic 55–79; PULSE 64–87; RESP 16–27; TEMP 36.3–37; O2SAT 93–95
[2023-07-30] MEDS: heparin 5,000 unit/mL INJ 1 mL 5000 UNIT SUBCUT ×2 (00:03→11:01)
[2023-07-30] MEDS: zolpidem 5 mg Tablet PO (00:26)
[2023-07-30 05:28] LABS: Basophils # 0.1 10^3/uL (0.0-0.1); Basophils % 1.1 %; Eosinophils # 0.3 10^3/uL (0.0-0.8); Eosinophils % 3.9 %; Hematocrit 36.1 % (36-47); Lymphocytes % 24.8 %; Mean Corpuscular HGB Conc 31.9 g/dL (30-55); Mean Corpuscular Hemoglobin 31.9 pg (27-33); Mean Corpuscular Volume 100.3 fl (85-98); Mean Platelet Volume 11.7 fL (7.4-10.4); Monocytes # 0.8 10^3/uL (0.2-0.9); Monocytes % 9.2 %; Neutrophils # 4.96 10^3/uL (1.8-7.7); Neutrophils % 60.6 %; Nucleated Red Blood Cells % 0 %; Platelet Count 175 10^3/cmm (157-399); Red Cell Distribution Width 14.9 % (12.1-15.1); White Blood Count 8.18 10^3/uL (3.29-11.43)
[2023-07-30 05:51] LABS: Magnesium 1.8 mg/dL (1.7-2.3)
[2023-07-30 05:52] LABS: Alanine Aminotransferase 17 U/L (0-33); Albumin Level 3.4 g/dL (3.5-5.2); Alkaline Phosphatase 60 U/L (35-105); Anion Gap 17.5 (5-19); Aspartate Amino Transferase 30 U/L (0-32); Blood Urea Nitrogen 17 mg/dL (8-23); Calcium 8.7 mg/dL (8.5-10.5); Carbon Dioxide 26 mmol/L (22-29); Chloride 99 mmol/L (98-107); Creatinine Clr Calc Pharmacy 51.5365; Globulin 3.2 g/dL (1.3-4.6); Glucose 180 mg/dL (65-115); Osmolality Calculated 294 mOsm/kg (285-295); Potassium 3.5 mmol/L (3.5-5.1); Sodium 139 mmol/L (136-145); Total Bilirubin 0.4 mg/dL (0.15-1.2); Total Protein 6.6 g/dL (6.6-8.7)
[2023-07-30 05:57] LABS: Estmated Average Glucose 189; Hemoglobin A1C 8.2 % (4.0-6.0)
[2023-07-30] MEDS: isosorbide mononitrate ER 30 mg Tablet PO (06:12)
[2023-07-30] MEDS: allopurinol 100 mg Tablet PO (08:32)
--- NOTE | 2023-07-30 08:43 | P.CONIM_ITS ---
Providers/Reason For Consult 2 Consulting Physician/Specialty*: Julian Pitts MD/ Cardiology Reason for Consult*: Bradycardia Requesting Physician: Dr Arzola Attending Physician: Fabio Arzola MD Primary Care Provider: CEDRIC Ayon History of Present Illness History of Present Illness Kadi Hernandez is a 78 year old female with past medical history of dementia, hyperlipidemia, atrial fibrillation on Xarelto who presented to the hospital with 2 possible pre-syncopal episodes. He has a loop recorder. She felt her heart rate was very low at the time. Loop recorder interrogation demonstrates atrial fibrillation on July 27 however no long pauses are noticed. She takes high dose of propranolol. Likely she was taking 80 mg twice daily. She says it is important for her tremors. Since coming to hospital, she has not have bradycardia. Currently holding propranolol She also complains of chest pressure on exertion. ECHO shows normal LV systolic function. Troponins have not trended up significantly. EKG shows normal sinus rhythm Review of Systems 2 Const: Denies: fever(s) Eyes: Denies: change in vision ENMT: Denies: throat pain Card: Reports: chest pain Resp: Denies: dyspnea GI: Denies: abdominal pain : Denies: flank pain Musc: Denies: neck pain Skin/Breast: Denies: rash Medications/Allergies Home Medications Medication Instructions Recorded Confirmed Last Taken Type albuterol sulfate 90 mcg/actuation 2 puff inhalation Q6H PRN 05/03/21 07/29/23 Unknown History aerosol inhaler Shortness Of Breath fluticasone propionate 50 2 spray intranasal DAILY PRN 09/15/21 07/29/23 Unknown History mcg/actuation nasal Allergy Symptoms spray,suspension (Flonase Allergy Relief) propranolol 80 mg capsule,24 80 mg PO QAM 03/27/23 07/29/23 Unknown History hr,extended release rivaroxaban 20 mg tablet (Xarelto) 20 mg PO DAILY #100 tabs 04/24/23 07/29/23 2 Weeks Ago Rx ~07/15/23 allopurinol 300 mg tablet 300 mg PO DAILY PRN gout 07/29/23 07/29/23 Unknown History atorvastatin 20 mg tablet 20 mg PO BEDTIME 07/29/23 07/29/23 Unknown History carbidopa 10 mg-levodopa 100 mg 1 tab PO QAM 07/29/23 07/29/23 Unknown History tablet chlorthalidone 25 mg tablet 25 mg PO QAM 07/29/23 07/29/23 Unknown History furosemide 20 mg tablet 20 mg PO DAILY PRN Edema 07/29/23 07/29/23 Unknown History icosapent ethyl 1 gram capsule 1 g PO DAILY 07/29/23 07/29/23 Unknown History (Vascepa) irbesartan 150 mg tablet 150 mg PO QAM 07/29/23 07/29/23 Unknown History isosorbide mononitrate 60 mg 60 mg PO QAM 07/29/23 07/29/23 Unknown History tablet,extended release 24 hr loratadine 10 mg tablet 10 mg PO DAILY PRN Allergy Symptoms 07/29/23 07/29/23 Unknown History potassium chloride 10 mEq 10 meq PO DAILY PRN takes with 07/29/23 07/29/23 Unknown History tablet,extended release(part/cryst) lasix primidone 50 mg tablet 50 mg PO BEDTIME 07/29/23 07/29/23 Unknown History Allergies Allergy/AdvReac Type Severity Reaction Status Date / Time lisinopril Allergy coughing Verified 07/28/23 23:29 Current Medications Generic Name Dose Route Start Last Admin Trade Name Freq PRN Reason Stop Dose Admin Allopurinol 100 mg 07/29/23 09:00 07/30/23 08:32 Allopurinol 100 Mg Tablet PO 100 mg DAILY JACQUI Administration Atorvastatin Calcium 20 mg 07/29/23 21:00 07/29/23 21:21 Atorvastatin 40 Mg Tablet PO 20 mg BEDTIME JACQUI Administration Carbidopa/Levodopa 1 each 07/29/23 11:05 07/30/23 06:12 Carbidopa-Levodopa 10-100 Mg Tablet PO 1 each QAM JACQUI Administration Heparin Sodium (Porcine) 5,000 unit 07/29/23 11:15 07/30/23 00:03 Heparin 5,000 Unit/Ml Inj 1 Ml SUBCUT 5,000 unit Q12H JACQUI Administration Ceftriaxone Sodium 1,000 mg/ 50 mls @ 100 mls/hr 07/29/23 11:15 07/29/23 13:00 Sodium Chloride IV Infused Q24H JACQUI Infusion Protocol Sodium Chloride 1,000 mls @ 50 mls/hr 07/29/23 12:30 07/29/23 12:37 Sodium Chloride 0.9% IV 50 mls/hr .Q20H JACQUI Administration Isosorbide Mononitrate 30 mg 07/30/23 06:00 07/30/23 06:12 Isosorbide Mononitrate Er 30 Mg Tablet PO 30 mg QAM JACQUI Administration Primidone 50 mg 07/29/23 21:00 07/29/23 21:21 Primidone 50 Mg Tablet PO 50 mg BEDTIME JACQUI Administration PFSH Acute 2 PFSH: Medical History HTN (hypertension) Gout Dyslipidemia Melanoma Atrial fibrillation Surgical History Hx of cataract extraction History of cholecystectomy Status post laparoscopic cholecystectomy (03/30/20) History of removal of ovarian cyst History of carpal tunnel release S/P complete hysterectomy H/O esophagogastroduodenoscopy 1977 H/O colonoscopy 2016 Family History Mother Melanoma Diabetes Stroke Father CAD (coronary artery disease) unknown age of onset, [place] at 62 Cancer Family/Other Cancer Grandmother Cancer Brother Diabetes Denies family history of Clotting disorder Dementia Chronic kidney disease (CKD) Suicide Anesthesia complication Bleeding disorder Lung disease Social History Smoking and tobacco/nicotine status: never used tobacco/nicotine Alcohol intake: never Substance/Drug Use: never Household members: spouse Marital status: Current occupational status: retired Vitals/I&O/Wt Last Vital Signs Temp 97.4 F L 07/30/23 07:33 Pulse 74 07/30/23 07:33 Resp 16 07/30/23 07:33 BP 112/55 07/30/23 07:33 Pulse Ox 95 07/30/23 07:33 O2 Del Method Room Air 07/30/23 07:33 07/29/23 07/30/23 07/30/23 22:59 06:59 14:59 Intake Total 240 / 700 400 / 1100 Output Total 600 / 600 Balance 240 / 700 -200 / 500 Weight last 48 hrs Weight 230 lb Weight 227 lb Weight 210 lb Physical Exam 2 Narrative: GENERAL: Patient is alert, awake and oriented x3. [] NECK: No jugular vein distension. [] HEENT: No cyanosis. No icterus. No pallor. [] HEART: Regular S1 and S2. No murmur, rub or gallop. [] LUNGS: Clear to auscultate bilaterally. [] CENTRAL NERVOUS SYSTEM: Grossly nonfocal. [] EXTREMITIES: Lower extremities with 1+ edema bilaterally. Data 07/31/23 04:42 07/31/23 04:42 Micro: Microbiology 07/29/23 07:00 Bacterial Antigens - Final Urine Kidney 07/29/23 11:48 Blood Culture - Preliminary Blood SPECIMEN COLLECTED 07/29/23 11:50 Blood Culture - Preliminary Blood SPECIMEN COLLECTED A&P Assessment and plan (1) Atrial fibrillation: Qualifiers: Atrial fibrillation type: unspecified Qualified Code(s): I48.91 - Unspecified atrial fibrillation (2) Dyslipidemia: (3) HTN (hypertension): Qualifiers: Hypertension type: unspecified Qualified Code(s): I10 - Essential (primary) hypertension (4) Bradycardia: (5) Pre-syncope: Plan Patient for loop recorder interrogation does not shows long pauses correlating with presyncopal episodes. She likely was taking higher doses of propranolol. We will cut it down to 20 mg twice daily. She will continue following with cardiology office. No indication for pacemaker at this time. Continue telemonitoring for today. She has chest discomfort episodes that are atypical. We will obtain Lexiscan to rule out ischemia. Thank for involving us with care of this patient. We will continue to follow. Please call with questions. Consult Attestations 2 Medical Necessity Statement: Care expected to cross 2 midnights. Coding Level of Care Code Acute Code for [facility] Diagnoses Atrial fibrillation, unspecified type I48.91 Atrial fibrillation type: unspecified Dyslipidemia E78.5 Essential hypertension I10 Hypertension type: unspecified Bradycardia R00.1 Pre-syncope R55
--- NOTE | 2023-07-30 10:23 | ECG_ITS ---
[facility] Test Date: 2023-07-31 Pat Name: Kadi Hernandez Department: Room: 112 Gender: Female Pattern Changer: : 1945 Requested By: Fabio Arzola Order Number: [id number] MD: Julian Pitts M.D. Interpretive Statements NAME OF STUDY: LEXISCAN SESTAMIBI STRESS TEST INDICATION: [UNSTABLE ANGINA, ] Procedure: At the baseline, the blood pressure was 123/75 mmHg with a heart rate of 68 bpm. The electrocardiogram showed normal sinus rhythm, normal axis with normal ST and T's. The Lexiscan was infused over a period of 20 seconds. A total of 0.4 mg of Lexiscan was infused. The stress phase was continued for a total of 5 minutes. Heart rate was at the end of stress phase was 70 bpm and a blood pressure of 132/75 mmHg. The EKG at the peak infusion revealed normal sinus rhythm with no significant ST-T wave changes. Sestamibi was injected 20 seconds after the Lexiscan infusion. Blood pressure at the end of recovery phase was 148/74 mmHg with a heart rate of 78bpm. Occasional PACs were seen. Conclusion: 1. Normal EKG response to Lexiscan infusion 2. No Lexiscan induced chest pain or cardiac arrhythmia. 3. Normal blood pressure and heart rate response. 4. Sestamibi/sestamibi perfusion scan pending; see separate report. Electronically Signed On 08-07-2023 12:06:35 CDT by Julian Pitts M.D. [id number]
[2023-07-30] MEDS: cefTRIAXone 1,000 MG in sodium chloride 0.9% (plus) 50 ML 100 MG IV (11:01)
[2023-07-30] MEDS: propranolol 20 mg Tablet PO ×2 (11:10→17:28)
[2023-07-30] MEDS: sodium chloride 0.9% 1,000 ML 50 ML IV (11:18)
--- NOTE | 2023-07-30 13:47 | P.PN_ITS ---
Subjective 2 Subjective: No acute events overnight. Patient has remained hemodynamically stable and afebrile. Seen with multiple family members at bedside. Patient is awake and alert able to have complete conversation. Heart rate has remained stable. Continues to remain on room air. Vitals/I&O/Wt Last Vital Signs Temp 97.4 F L 07/30/23 11:00 Pulse 76 07/30/23 11:00 Resp 26 H 07/30/23 11:00 BP 138/79 07/30/23 11:00 Pulse Ox 94 07/30/23 11:00 O2 Del Method Room Air 07/30/23 11:00 07/29/23 07/30/23 07/30/23 22:59 06:59 14:59 Intake Total 240 / 700 400 / 1100 1530 / 1530 Output Total 600 / 600 Balance 240 / 700 -200 / 500 1530 / 1530 Weight last 48 hrs Weight 104.326 kg Weight 102.965 kg Weight 95.254 kg Physical Exam 2 Narrative: General: No acute distress, AO x3, pleasant, mildly forgetful, mildly dehydrated, tremors HEENT: PERRLA, pupils bilaterally equal and reactive Chest: Normal vesicular breath sounds, no added sounds, equal good air entry bilaterally CVS: S1-S2 regular, no murmurs, no tachycardia, no gallops, no rubs Abdomen: Soft, nontender, no organomegaly, bowel sounds present Neuro: No focal deficits, no facial deformity, AO x3, power 5/5 in all limbs Data 07/30/23 05:17 07/30/23 05:17 Micro: Microbiology 07/29/23 11:48 Blood Culture - Preliminary Blood NEGATIVE TO DATE 07/29/23 11:50 Blood Culture - Preliminary Blood NEGATIVE TO DATE 07/29/23 07:00 Bacterial Antigens - Final Urine Kidney A&P Assessment and plan (1) Pre-syncope: (2) Bradycardia: (3) Atrial fibrillation: Qualifiers: Atrial fibrillation type: unspecified Qualified Code(s): I48.91 - Unspecified atrial fibrillation (4) Chest pain: (5) HTN (hypertension): Qualifiers: Hypertension type: unspecified Qualified Code(s): I10 - Essential (primary) hypertension (6) Gout: Qualifiers: Gout site: unspecified site Gout etiology: unspecified cause C hronicity: chronic Presence of tophus: without tophus Qualified Code(s): Landy 1A.9XX0 - Chronic gout, unspecified, without tophus (tophi) (7) Essential tremor: (8) UTI (urinary tract infection): Plan Pre-Syncopal event: Not sure of the reason. Event monitor interrogation shows no episode of bradycardia. Could have been in setting of encephalopathy from UTI. Or could have also been in setting of hypotension as patient's blood pressures have been stable on lower antihypertensives Continue on school lunch monitor. Start propranolol at 20 mg twice daily. Patient does give history of occasional chest pain. Troponins not significant. Last Lexiscan stress test on October 2020 which was negative for ischemia. Echocardiogram done this time shows EF of 60 to 65% without regional wall motion malady, grade 2 diastolic dysfunction with trace MR and mild TR. Plan for Lexiscan stress test in AM. N.p.o. after midnight. Telemetry. Electrolytes replenished. Keep potassium around 4, magnesium around 2. Patient states she would want to continue propanol as that helps her a lot with her tremors. She states she has been bothered by tremors for a long time and is interfering with her lifestyle and is embarrassing as she is not even able to keep her food with the hand and wants to continue taking propranolol. UTI: Denies any dysuria. UA positive for UTI. Follow-up urine culture. Check blood culture as patient might be going for pacemaker. Start on IV Rocephin for now. A-fib with controlled rate: Not bradycardic anymore. Continue telemonitoring. Restart Xarelto as there is no plan for placement recommendation for now. JENN: Baseline creatinine seems to be around 0.2-0.9. Trending down. Could be in setting of dehydration. Continue with normal saline at 75 cc/h. Monitor BMP daily for now. Medical reconciliation done for nephrotoxic drugs. Hypertension: Goal blood pressure less than 140/90 mmHg. Blood pressure stable for now. Continue with home dose of Imdur. Holding off on chlorthalidone, ARB. Restarting propranolol as above. Restart other home medications including carbidopa-levodopa, statin, Imdur, primidone. CODE STATUS: Discussed in detail with the patient. Son will be the DPOA. She does not want any heroic measures, chest compressions or mechanical ventilation but is okay with pacemaker if needed. CODE STATUS changed to DNR/DNI. Cardiac diet. Heparin 5000 every 12 hourly for DVT prophylaxis Protonix for PUD prophylaxis Plan discussed in detail with multiple family members at the bedside. All the questions were answered. They are agreeable with current treatment plan. Attestations 2 Medical Necessity Statement*: Requires further hospitalization for management of presyncopal event in setting of unstable angina, borderline blood pressures, UTI while significant bradycardia is ruled out, JENN Diagnoses Pre-syncope R55 Bradycardia R00.1 Atrial fibrillation, unspecified type I48.91 Atrial fibrillation type: unspecified Chest pain, unspecified type R07.9 Essential hypertension I10 Hypertension type: unspecified Chronic gout without tophus, unspecified cause, unspecified site M1A.9XX0 Gout site: unspecified site Gout etiology: unspecified cause Chronicity: chronic Presence of tophus: without tophus Essential tremor G25.0 UTI (urinary tract infection) N39.0
[2023-07-30] MEDS: atorvastatin 40 mg Tablet 20 MG PO (21:30)
[2023-07-30] MEDS: primidone 50 mg Tablet PO (21:30)
[2023-07-31] VITALS (7 sets, daily range): BP systolic 118–152; BP diastolic 64–87; PULSE 64–92; RESP 19–21; TEMP 36.5–36.8; O2SAT 93–95
[2023-07-31 05:10] LABS: Basophils # 0.1 10^3/uL (0.0-0.1); Eosinophils # 0.4 10^3/uL (0.0-0.8); Eosinophils % 4.5 %; Hematocrit 35.8 % (36-47); Lymphocytes % 25.3 %; Mean Corpuscular HGB Conc 32.1 g/dL (30-55); Mean Corpuscular Hemoglobin 32.3 pg (27-33); Mean Corpuscular Volume 100.6 fl (85-98); Mean Platelet Volume 11.9 fL (7.4-10.4); Monocytes # 0.7 10^3/uL (0.2-0.9); Monocytes % 9.1 %; Neutrophils # 4.77 10^3/uL (1.8-7.7); Neutrophils % 59.7 %; Nucleated Red Blood Cells % 0 %; Platelet Count 181 10^3/cmm (157-399); Red Blood Count 3.56 10^6/uL (3.85-5.65); Red Cell Distribution Width 14.6 % (12.1-15.1); White Blood Count 7.99 10^3/uL (3.29-11.43)
[2023-07-31 05:32] LABS: Alanine Aminotransferase 17 U/L (0-33); Albumin Level 3.5 g/dL (3.5-5.2); Alkaline Phosphatase 60 U/L (35-105); Anion Gap 18.7 (5-19); Aspartate Amino Transferase 32 U/L (0-32); Blood Urea Nitrogen 20 mg/dL (8-23); Calcium 9.1 mg/dL (8.5-10.5); Carbon Dioxide 27 mmol/L (22-29); Chloride 99 mmol/L (98-107); Creatinine Clr Calc Pharmacy 46.8514; Globulin 3.3 g/dL (1.3-4.6); Glucose 172 mg/dL (65-115); Osmolality Calculated 299 mOsm/kg (285-295); Potassium 3.7 mmol/L (3.5-5.1); Sodium 141 mmol/L (136-145); Total Bilirubin 0.3 mg/dL (0.15-1.2); Total Protein 6.8 g/dL (6.6-8.7)
[2023-07-31 05:34] LABS: Magnesium 1.6 mg/dL (1.7-2.3)
[2023-07-31] MEDS: sodium chloride 0.9% 1,000 ML 50 ML IV (05:52)
[2023-07-31] MEDS: isosorbide mononitrate ER 30 mg Tablet PO (05:52)
[2023-07-31] MEDS: regadenoson 0.4 Mg/5 ml Syringe 0.400000000000000022 MG IVP (07:47)
--- NOTE | 2023-07-31 08:00 | NMCV_ITS ---
NM airam perf SPECT r/s* [id number] Kadi Hernandez Age: 78 Gender: F : 1945 Exam Date: 07/31/2023 08:00 Ordering Phys: Fabio Arzola MD Technologist: JIE Conteh Exam Location: [facility] Indications: CHEST PAIN STRESS TEST Please [facility] IMAGE PROTOCOL Rest/Stress 1 Lexiscan Day Radiopharmaceutical Dose (mCi) Administration Site Administered by Rest: Tc-99m 10.6 IV JIE [place] Sestamibi Stress:Tc-99m 33.0 IV JIE [place] Sestamibi Rest: 31-Jul-2023 60 Discovery 630 Stress: 31-Jul-2023 30 Discovery 630 0.4mg Lexiscan. Images obtained in supine and prone position. SPECT RESULTS Technical Quality: Excellent Raw Data Analysis: Normal Image Corrections: No attenuation or motion correction applied Summed Stress Score: 1 Summed Rest Score: 1 Summed Difference Score: 1 PERFUSION FINDINGS SPECT images demonstrate homogeneous tracer distribution throughout the myocardium. FUNCTIONAL RESULTS (calculated via Gated SPECT) Stress Image LV EF (%): 86 Stress EDV (mL):66 TID: 1.03 Stress ESV (mL):9 FUNCTIONAL FINDINGS: There is normal left ventricular systolic function. IMPRESSIONS 1. Normal myocardial perfusion imaging with no evidence of ischemia 2. LV systolic function is normal Julian Pitts MD (Electronically Signed) Final Date: 31 July 2023 10:35 S
[2023-07-31] MEDS: propranolol 20 mg Tablet PO (10:00)
[2023-07-31] MEDS: allopurinol 100 mg Tablet PO (10:00)
--- NOTE | 2023-07-31 10:05 | PC.CHAP ---
Pastoral Care Encounter/Spiritual Assessment Type of Contact [] Declined displayer visit [] Patient/Family/Request visit [] Outpatient visit [] Follow-up visit [] Physician referral [] Code/Alert [x] Routine visit [] Staff referral [] Actively dying [] Patient sleeping [] Family support [] [] Out of room [] Palliative care [] [] Receiving care in room [] Pre-surgical visit [] Trauma [] Long length of stay [] ICU visit [] Other: Relational/Emotional Strength [] Patient feels connected with others/family/visitors/staff [] Distress [] Loneliness/isolation [] Abandonment Spirituality of Patient [x] Person of Sarah [] Attends Hoahaoism of their Sarah [x] Believes in Prayer [] Reads Bible or Orthodoxy materials [] There are Spiritual issues to be addressed Process Eng Interventions [x] Prayer [x] Active listening [] Non-anxious presence [] Spiritual/emotional support [] Crisis/trauma care [] Spiritual counseling [] Bereavement support [] Provided bereavement packet [x] Provided Bible/devotional materials [] Provided toy/stuffed animal, coloring book to patient or family member [] Provided Communion [] Anointing/[place] [] Salvation [x] Completed spiritual assessment [] Other: Impact on Illness or Injury [] Angry [] Fearful [] Anxious [] Often cries [] Exhaustion [] Unable to work [] Unable to attend pentecostalism [] Unable to walk/stand [] Unable to read [] Unable to drive [] Unable to eat/drink [] Unable to sleep [] Unable to be with family [] Patient intubated [] Other: Summary Time spent with patient 10 min
--- NOTE | 2023-07-31 10:20 | P.PN_ITS ---
Subjective 2 Subjective: Patient is chest pain free. Had stress test today not showing significant ischemia. Vitals/I&O/Wt Last Vital Signs Temp 98.0 F 07/31/23 04:00 Pulse 64 07/31/23 09:39 Resp 19 H 07/31/23 09:39 BP 152/84 07/31/23 09:39 Pulse Ox 95 07/31/23 09:39 O2 Del Method Room Air 07/31/23 04:00 07/30/23 07/31/23 07/31/23 22:59 06:59 14:59 Intake Total 240 / 1770 928.333 / 2698.333 Output Total 0 / 0 0 / 0 Balance 240 / 1770 928.333 / 2698.333 Weight last 48 hrs Weight 230 lb Weight 230 lb Physical Exam 2 Narrative: GENERAL: Patient is alert, awake and oriented x3. [] NECK: No jugular vein distension. [] HEENT: No cyanosis. No icterus. No pallor. [] HEART: Regular S1 and S2. No murmur, rub or gallop. [] LUNGS: Clear to auscultate bilaterally. [] CENTRAL NERVOUS SYSTEM: Grossly nonfocal. [] EXTREMITIES: Lower extremities with 1+ edema bilaterally. Data 07/31/23 04:42 07/31/23 04:42 Micro: Microbiology 07/29/23 07:00 Urine Culture - Final Urine,Clean Catch 07/29/23 11:48 Blood Culture - Preliminary Blood NEGATIVE TO DATE 07/29/23 11:50 Blood Culture - Preliminary Blood NEGATIVE TO DATE 07/29/23 07:00 Bacterial Antigens - Final Urine Kidney A&P Assessment and plan (1) Atrial fibrillation: Qualifiers: Atrial fibrillation type: unspecified Qualified Code(s): I48.91 - Unspecified atrial fibrillation (2) Dyslipidemia: (3) HTN (hypertension): Qualifiers: Hypertension type: unspecified Qualified Code(s): I10 - Essential (primary) hypertension (4) Bradycardia: (5) Pre-syncope: Plan Stress test not showing significant ischemia. Medical therapy. Heart rate is stable on lower dose of propranolol. We will continue with it. Thank for involving us with care of this patient. Patient is stable to be discharged from cardiology standpoint. Please call with questions. Attestations 2 Medical Necessity Statement*: Care expected to cross 2 midnights. Coding Level of Care Code Acute Code for Chg Fwd Diagnoses Atrial fibrillation, unspecified type I48.91 Atrial fibrillation type: unspecified Dyslipidemia E78.5 Essential hypertension I10 Hypertension type: unspecified Bradycardia R00.1 Pre-syncope R55
[2023-07-31] MEDS: cefTRIAXone 1,000 MG in sodium chloride 0.9% (plus) 50 ML 100 MG IV (10:51)
[2023-07-31] MEDS: rivaroxaban 10 mg Tablet 20 MG PO (13:01)
--- NOTE | 2023-07-31 14:27 | PC.NURSE ---
discharge w/pt belongings- cellphone
--- NOTE | 2023-07-31 22:03 | P.DS_ITS ---
Discharge Providers Date of Admission: 07/29/23 02:58 Date of Discharge: July 31, 2023 Attending Provider at Admission: Wendie Jin MD Attending Provider at Discharge: Fer Chowdhury Primary Care Provider: CEDRIC Ayon Diagnoses at Discharge Discharge Diagnosis (1) Atrial fibrillation: Status: Acute Qualifiers: Atrial fibrillation type: unspecified Qualified Code(s): I48.91 - Unspecified atrial fibrillation (2) Dyslipidemia: Status: Acute (3) HTN (hypertension): Status: Acute Qualifiers: Hypertension type: unspecified Qualified Code(s): I10 - Essential (primary) hypertension (4) Bradycardia: Status: Acute (5) Pre-syncope: Status: Acute Reason for Visit Reason for Visit: Chest pain and dizzy head hurting Brief History: Kadi Hernandez is a 78 year old female has a loop recorder which was placed by Dr. Montano for her persistent dizziness syncopal event. Presented to the hospital today for 2 presyncopal events at home in the ER she had bradycardic episode down to 30s transiently then she would convert back to normal sinus rhythm. Patient is stating that she had 2 presyncopal events when she feels lightheaded and dizzy and leaned against the wall but she never had syncopal event. She did experience left-sided chest discomfort which she is describing as achy, it only lasted for about a minute and then improved, she denies current shortness of breath, fever, nausea, diarrhea. Her last dose of Xarelto was at 8 AM 07/27, she also takes propranolol on daily basis. Patient is stating that her tremors are pretty bad that she would spill food and that is embarrassing. She is not complaining of chest pain at the time of evaluation, troponins without significant delta Hospital Course Hospital Course Noted bradycardia, heart rate in the 30s. He has been taking propranolol at home for tremors. Propranolol was initially held, subsequently restarted at a lower dose. Discussed extensively with her and family that propranolol causes slower heart rate, she knows to monitor her heart rate, cut down or hold propranolol dose in case of bradycardia in the 60s or below 60 respectively. She has been maintaining heart rates in the 70s-80s with reduced dose propranolol. Echocardiogram showed grade 2 diastolic dysfunction, mild TVR although was not a good quality study. Due to having episodes of chest pain, central, reproducible on palpation, [facility] er, with some troponin elevation, cardiac risks, additionally underwent assessment by stress testing which showed no ischemia. She was assessed by cardiology while in the hospital, she will continue as per recommendation on reduced dose propranolol, follow-up in office for reassessment, and otherwise was okay to discharge. She is chest pain-free, chest pain was thought to be more musculoskeletal, her, she understands to seek medical attention immediately in case of any worsening or persistent chest pain or pressure, or other new or concerning symptoms. She was also treated for urinary tract infection while in hospital with ceftriaxone and will complete a course with cefdinir. Of note her left lower extremity is larger than the right, this has been a chronic finding. She is previously had a venous duplex Last year which was negative for DVT. Continues on Xarelto. As per discussion they are aware to look out for red flags that may suggest a problem like DVT or cellulitis. Physical Exam Narrative: Accompanied by family. In good spirits. Const: COMMON NORMALS: patient oriented x3 and alert GENERAL APPEARANCE: cooperative ORIENTATION/CONSCIOUSNESS: Yes awake HENMT: COMMON NORMALS: oropharynx normal Neck/C-Spine: COMMON NORMALS: no JVD Resp: COMMON NORMALS: normal respiratory effort and clear to auscultation bilaterally AUSCULTATION: clear to auscultation bilaterally Cardio: COMMON NORMALS: no JVD, regular rhythm, S1 normal heart sound present, S2 normal heart sound present and No murmurs present (Cardio) RHYTHM: regular rhythm HEART SOUNDS: S1 normal heart sound present and S2 normal heart sound present GI: COMMON NORMALS: Normal to inspection, nondistended, normoactive bowel sounds present, Soft to palpation and non-tender PALPATION: Yes Soft to palpation Extremity: COMMON NORMALS: no joint enlargement and no pedal edema Neuro: COMMON NORMALS: patient oriented x3 and moves all extremities SENSORIUM/ORIENTATION: Yes alert Skin: COMMON NORMALS: no rashes or lesions noted GENERAL SKIN EXAM: no rashes or lesions noted Discharge Data Studies Completed and Pending Completed Studies During Hospitalization Category Date Time Status CT head wo con* [id number] Routine Cat Scan 07/29/23 10:59 Completed Sestamibi Stress Test Request Routine Exams 07/30/23 10:23 Draft XR chest 1V portable [id number] Stat Exams 07/28/23 23:25 Completed NM airam perf SPECT r/s* [id number] Routine Nuc Med 07/31/23 08:00 Completed CV. echo complete* [id number] Routine Ultrasound 07/29/23 03:52 Completed Pending at discharge Category Date Time Status Blood Culture Stat Lab 07/29/23 11:48 Results Radiology Impressions Chest X-Ray 07/28/23 23:25 IMPRESSION: 1. Negative for infiltrate. 2. Cardiomegaly. Head CT 07/29/23 10:59 IMPRESSION: 1. No acute intracranial abnormality. If symptoms persist, consider further evaluation with MRI, if MRI is clinically safe to obtain. 2. Right sphenoid sinus disease. Laboratory Results WBC 7.99 10^3/uL (3.29-11.43) 07/31/23 04:42 RBC 3.56 10^6/uL (3.85-5.65) L 07/31/23 04:42 Hgb 11.50 g/dL (11.27-16.99) 07/31/23 04:42 Hct 35.8 % (36-47) L 07/31/23 04:42 MCV 100.6 fl (85-98) H 07/31/23 04:42 MCH 32.3 pg (27-33) 07/31/23 04:42 MCHC 32.1 g/dL (30-55) 07/31/23 04:42 RDW 14.6 % (12.1-15.1) 07/31/23 04:42 Plt Count 181 10^3/cmm (157-399) 07/31/23 04:42 MPV 11.9 fL (7.4-10.4) H 07/31/23 04:42 Neut % (Auto) 59.7 % 07/31/23 04:42 Lymph % (Auto) 25.3 % 07/31/23 04:42 Coffey % (Auto) 9.1 % 07/31/23 04:42 Eos % (Auto) 4.5 % 07/31/23 04:42 Baso % (Auto) 1.0 % 07/31/23 04:42 Neut # (Auto) 4.77 10^3/uL (1.8-7.7) 07/31/23 04:42 Lymph # (Auto) 2.0 10^3/uL (0.8-4.8) 07/31/23 04:42 Coffey # (Auto) 0.7 10^3/uL (0.2-0.9) 07/31/23 04:42 Eos # (Auto) 0.4 10^3/uL (0.0-0.8) 07/31/23 04:42 Baso # (Auto) 0.1 10^3/uL (0.0-0.1) 07/31/23 04:42 Nucleated RBC % (auto) 0 % 07/31/23 04:42 Nucleated RBCs # 0.0 /100WBC 07/31/23 04:42 D-Dimer <= 0.27 ug/mLFEU (0-0.59) 07/29/23 11:50 Sodium 141 mmol/L (136-145) 07/31/23 04:42 Potassium 3.7 mmol/L (3.5-5.1) 07/31/23 04:42 Chloride 99 mmol/L (98-107) 07/31/23 04:42 Carbon Dioxide 27 mmol/L (22-29) 07/31/23 04:42 Anion Gap 18.7 (5-19) 07/31/23 04:42 BUN 20 mg/dL (8-23) 07/31/23 04:42 Creatinine 1.1 mg/dL (0.5-0.9) H 07/31/23 04:42 GFR Calculation Not Reportable 07/31/23 04:42 Glucose 172 mg/dL (65-115) H 07/31/23 04:42 Estimat Average Glucose 189 07/30/23 05:17 Hemoglobin A1c 8.2 % (4.0-6.0) H 07/30/23 05:17 Calculated Osmolality 299 mOsm/kg (285-295) H 07/31/23 04:42 Calcium 9.1 mg/dL (8.5-10.5) 07/31/23 04:42 Phosphorus 2.8 mg/dL (2.5-4.5) 07/29/23 04:14 Magnesium 1.6 mg/dL (1.7-2.3) L 07/31/23 04:42 Iron 50 ug/dL (37-145) 07/29/23 11:50 TIBC 261 mcg/dl 07/29/23 11:50 % Saturation 19.1 % (20-50) L 07/29/23 11:50 Unsat Iron Binding 211 ug/dL (112-347) 07/29/23 11:50 Total Bilirubin 0.3 mg/dL (0.15-1.2) 07/31/23 04:42 AST 32 U/L (0-32) 07/31/23 04:42 ALT 17 U/L (0-33) 07/31/23 04:42 Alkaline Phosphatase 60 U/L (35-105) 07/31/23 04:42 Troponin T Baseline 28 ng/L (0-10) H 07/28/23 23:41 Troponin T 120 Minute 26.45 ng/L (0-10) H 07/29/23 01:35 Delta Troponin T -1.55 ABS# (0-10) L 07/29/23 01:35 Troponin T Hi Sens 6Hr 23.33 ng/L (0-10) H 07/29/23 05:58 Troponin T Hi Sens 6Hr Delta -4.67 ng/L (0-12) L 07/29/23 05:58 C-Reactive Protein 11.8 mg/L (0.0-4.9) H 07/29/23 04:14 Total Protein 6.8 g/dL (6.6-8.7) 07/31/23 04:42 Albumin 3.5 g/dL (3.5-5.2) 07/31/23 04:42 Globulin 3.3 g/dL (1.3-4.6) 07/31/23 04:42 Vitamin B12 278 pg/mL (232-1245) 07/29/23 04:14 Folate 10.0 ng/mL (4.8-37.3) 07/30/23 05:17 Procalcitonin 0.19 ng/mL (0-0.5) 07/29/23 11:50 TSH 3.23 uIU/mL (0.27-4.20) 07/29/23 04:14 Urine Color Yellow (Yellow) 07/29/23 07:00 Urine Appearance Cloudy (CLEAR) A 07/29/23 07:00 Urine pH 5 (5-7) 07/29/23 07:00 Ur Specific [place] 1.025 (1.005-1.030) 07/29/23 07:00 Urine Protein Neg (Negative) 07/29/23 07:00 Urine Glucose (UA) Norm (Normal) 07/29/23 07:00 Urine Ketones Negative (Negative) 07/29/23 07:00 Urine Blood Neg (Negative) 07/29/23 07:00 Urine Nitrate Negative (Negative) 07/29/23 07:00 Urine Bilirubin Neg (Negative) 07/29/23 07:00 Urine Urobilinogen Neg mg/dL (Negative) 07/29/23 07:00 Ur Leukocyte Esterase 2+ (Negative) H 07/29/23 07:00 Urine RBC 0-4 /hpf (0-2) H 07/29/23 07:00 Urine WBC >100 /hpf (0-5) H 07/29/23 07:00 Ur Squamous Epith Cells 15-25 /hpf (0-5) H 07/29/23 07:00 Amorphous Sediment Not Reportable 07/29/23 07:00 Urine Bacteria 3+ /hpf (NONE) H 07/29/23 07:00 Urine Opiates Screen Negative ng/mL (Negative) 07/29/23 07:00 Ur Barbiturates Screen Positive ng/mL (Negative) H 07/29/23 07:00 Ur Phencyclidine Scrn Negative ng/mL (Negative) 07/29/23 07:00 Ur Amphetamines Screen Negative ng/mL (Negative) 07/29/23 07:00 U Benzodiazepines Scrn Negative ng/mL (Negative) 07/29/23 07:00 Urine Cocaine Screen Negative ng/mL (Negative) 07/29/23 07:00 U Marijuana (THC) Screen Negative ng/mL (Negative) 07/29/23 07:00 Vitals Last Vital Signs Temp 98.2 F 07/31/23 13:11 Pulse 71 07/31/23 14:20 Resp 20 H 07/31/23 14:20 BP 151/87 07/31/23 14:20 Pulse Ox 94 07/31/23 14:20 O2 Del Method Room Air 07/31/23 14:20 Discharge Plan Discharge Patient Disposition: Home Condition: Stable Prescriptions: New propranolol 20 mg Tablet 20 mg PO BID Qty: 180 0RF cefdinir 300 mg capsule 300 mg PO BID 2 Days Qty: 4 0RF Continued fluticasone propionate [Flonase Allergy Relief] 50 mcg/actuation spray,suspension 2 spray intranasal DAILY PRN (Reason: Allergy Symptoms) Rx Instructions: administer into each nostril albuterol sulfate 90 mcg/actuation HFA aerosol inhaler 2 puff inhalation Q6H PRN (Reason: Shortness Of Breath) Xarelto 20 mg tablet 20 mg PO DAILY Qty: 100 3RF primidone 50 mg tablet 50 mg PO BEDTIME atorvastatin 20 mg tablet 20 mg PO BEDTIME chlorthalidone 25 mg tablet 25 mg PO QAM isosorbide mononitrate 60 mg tablet extended release 24 hr 60 mg PO QAM carbidopa-levodopa 10-100 mg tablet 1 tab PO QAM allopurinol 300 mg tablet 300 mg PO DAILY PRN (Reason: gout) furosemide 20 mg tablet 20 mg PO DAILY PRN (Reason: Edema) irbesartan 150 mg tablet 150 mg PO QAM loratadine 10 mg tablet 10 mg PO DAILY PRN (Reason: Allergy Symptoms) potassium chloride 10 mEq tablet,ER particles/crystals 10 meq PO DAILY PRN (Reason: takes with lasix) Vascepa 1 gram capsule 1 g PO DAILY Discontinued propranolol 80 mg capsule,extended release 24hr 80 mg PO QAM Dose Instruction: TAKE 1 CAPSULE BY MOUTH TWICE DAILY Discharge Orders: Discharge Order (Routine); Ordered 07/31/23 Ordered By: Fer Chowdhury Referrals: Bonnie Fleming FNP [Primary Care Provider] - 4-7 days (We have notified your physician's clinic of the need for a follow-up appointment to be scheduled. If you have not heard from them within the next 2 business days, please call them directly. ) Greta Garcia FNP [Nurse Practitioner] - 08/15/23 1:30 pm Discharge Diet: Usual diet and Cardiac Discharge Activity: Resume usual activity Patient Instructions: Propranolol (By mouth), Cefdinir (By mouth) (Omnicef), Urinary Tract Infection in Women (DC), Syncope (DC), Near Syncope (DC), Pain Management Activity Restrictions/Additional Instructions: Activity Restrictions/Additional Instructions: Thank you for choosing [facility] for your healthcare needs today. It is very important that you follow-up as instructed with your Primary care provider or Specialist for additional evaluation and to discuss your medical treatment plan. You may return to the Emergency Department should you have concerns or if your condition changes or worsens in any way. Please decrease propranolol dose to 20mg twice daily. Please keep track of your heart rates 2-3 times daily or anytime your are feeling unwell or lightheaded. Propranolol slows down your heart rate. Hold medication dose if your heart rate is below 60 beats per minute. Cut the tablet in half if your heart rate is in the 60s. Follow-up with your primary doctor as well as with cardiology for reassessment. Seek medical attention in case you are having nonresolving chest pain, heavy weight on her chest, trouble breathing, fainting or any other concerning symptoms. Complete antibiotic course for UTI, follow-up with your primary doctor for reassessment. Elevate your lower extremities, consider compression stockings, to follow-up with your primary doctor regarding chronic swelling of left lower extremity. Seek medical attention immediately in case of any red flag signs with any redness, worsening swelling, tenderness, or other concerning developments that may suggest a blood clot or skin infection. Discharge Attestations Time Spent in Discharge Care*: greater than 30 min Quality Metrics Clinical Quality Measures [ No reported AMI, CVA or VTE this stay] Coding Level of Care Code 82956 Total time (in minutes) for Discharge: 45 Diagnoses Atrial fibrillation, unspecified type I48.91 Atrial fibrillation type: unspecified Dyslipidemia E78.5 Essential hypertension I10 Hypertension type: unspecified Bradycardia R00.1 Pre-syncope R55
== END 2023-07-31 15:00 | disposition home or self-care (01) | DRG 309 ==
LOC: ER 07-29 03:16 → ICU 07-29 03:26 → CSU 07-29 15:15
PROVIDERS: Student in an Organized Health Care Education/Training Program; Admitting Provider Internal Medicine; Emergency Provider Internal Medicine; PCP Nurse Practitioner Family; Visit Provider Internal Medicine
DX: I48.20 Chronic atrial fibrillation, unspecified (principal); N39.0 Urinary tract infection, site not specified; E78.5 Hyperlipidemia, unspecified; I10 Essential (primary) hypertension; R00.1 Bradycardia, unspecified; G25.0 Essential tremor; Z79.01 Long term (current) use of anticoagulants; E87.6 Hypokalemia; E83.42 Hypomagnesemia; Z66 Do not resuscitate; F03.90 Unspecified dementia, unspecified severity, without behavioral disturbance, psychotic disturbance, mood disturbance, and anxiety; Z95.818 Presence of other cardiac implants and grafts
CPT/HCPCS: 36415; 70450; 71045; 78452; 80048; 80053; 80306; 81001; 82607; 82746; 83036; 83540; 83550; 83735; 84100; 84145; 84443; 84484; 85025; 85378; 86140; 86403; 87040; 87086; 93005; 93017; 93306; 96372; 96375; 99285; A9500; J0696; J1644; J2785; J3475; J7030

== ENCOUNTER → 2023-08-02 23:53 | Outpatient (BNVA) | payer MEDICARE, SELFPAY | PROVIDERS: PCP Nurse Practitioner Family; Visit Provider Internal Medicine | DX: Z45.09 Encounter for adjustment and management of other cardiac device (principal) | CPT/HCPCS: 93298 ==

== ENCOUNTER → 2023-08-15 12:53 | Outpatient (BNVA) | payer MEDICARE, SELFPAY | PROVIDERS: PCP Nurse Practitioner Family; Visit Provider Nurse Practitioner Family | DX: I10 Essential (primary) hypertension (principal); R00.1 Bradycardia, unspecified | CPT/HCPCS: 99214 ==

== ENCOUNTER 2023-11-02 10:50 | Observation (INO) | payer MEDICARE, SELFPAY ==
[2023-11-02] VITALS (7 sets, daily range): BP systolic 121–158; BP diastolic 57–88; PULSE 65–92; RESP 18–20; TEMP 36.6–36.9; O2SAT 92–96; BMI 41.5; BMI 44.4
--- NOTE | 2023-11-02 11:09 | XR_ITS ---
WS: [id number] Exam: XR chest 1V portable [id number] Date/Time of Exam: 11/02/2023 11:11 AM Reason For Exam: Weakness Comparison 07/28/2023. The lungs are clear and fully inflated. Heart size top limits normal for technique. No pleural effusi ons. Regional bony elements are intact. The mediastinum is normal in contour. A battery pack seen adelita ng the LEFT heart border. XR/XR chest 1V portable [id number] IMPRESSION: 1. No acute cardiopulmonary process.
--- NOTE | 2023-11-02 11:09 | CT_ITS ---
WS: [id number] CT HEAD TECHNIQUE: Noncontrast CT of the head obtained from the skullbase to the vertex. CLINICAL INFORMATION: Weakness COMPARISON: CT 07/29/2023 DLP: 1070.[address] scans at [facility] use at least one of these dose optimization techniques: automated e xposure control; mA and/or kV adjustment per patient size (includes targeted exams where dose is matc hed to clinical indication); or iterative reconstruction. FINDINGS: No evidence of intracranial hemorrhage or mass effect. Ventricular system and basal cisterns are longoria nt. Mild small vessel changes with moderate parenchymal volume loss. No extra-axial fluid collections . No evidence of mass or mass effect. Vascular calcification. Tiny chronic lacunar infarct RIGHT cere bellum. Paranasal sinuses and mastoid air cells are well aerated. .Normal visualized soft tissues. CT/CT head wo con* [id number] IMPRESSION: 1. No evidence of intracranial hemorrhage or mass effect 2. No acute intracranial findings.
--- NOTE | 2023-11-02 11:10 | ECG_ITS ---
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 Measurements Intervals [place] Rate: 69 P: 0 PA: 0 QRS: 22 QRSD: 84 T: 0 QT: 362 QTc: 388 Interpretive Statements Sinus rhythm NONSPECIFIC T-WAVE ABNORMALITY ABNORMAL RHYTHM ECG INTERPRETATION BASED ON A DEFAULT AGE OF 40 YEARS Compared to ECG 07/29/2023 01:21:01 T-wave abnormality still present Electronically Signed On 11-02-2023 14:11:05 CDT by Barrington Galan M.D. [email or web address]
--- NOTE | 2023-11-02 11:29 | W.ED.WEAKNES ---
HPI - Weakness General: Chief complaint: Weakness Stated complaint: foot numbness, chest pain Time Seen by Provider: 11/02/23 11:01 History of Present Illness: 78-year-old female with a history of hypertension, gout, hyperlipidemia and A-fib on Eliquis who presents to the emergency room with weakness today. She had some chest discomfort. Her feet felt numb. She had generalized weakness. Nothing focal. Apparently she seems somewhat confused at times. On presentation here now she says she still has some numbness in her feet and feels very weak. No chest pain. She had some mild shortness of breath. She had some nausea but no vomiting. She has not noticed any dysuria. No fevers. Currently she is not confused. No known fevers. No focal motor deficits. Review of Systems Narrative: Constitutional symptoms: Negative except as documented in HPI. Skin symptoms: Negative except as documented in HPI. Eye symptoms: Negative except as documented in HPI. ENMT symptoms: Negative except as documented in HPI. Respiratory symptoms: Negative except as documented in HPI. Cardiovascular symptoms: Negative except as documented in HPI. Gastrointestinal symptoms: Negative except as documented in HPI. Genitourinary symptoms: Negative except as documented in HPI. Musculoskeletal symptoms: Negative except as documented in HPI. Neurologic symptoms: Negative except as documented in HPI. Psychiatric symptoms: Negative except as documented in HPI. Endocrine symptoms: Negative except as documented in HPI. ON LICENSE OF [facility] ED PFSH: Medical History HTN (hypertension) Gout Dyslipidemia Melanoma Atrial fibrillation Surgical History Hx of cataract extraction History of cholecystectomy Status post laparoscopic cholecystectomy (03/30/20) History of removal of ovarian cyst History of carpal tunnel release S/P complete hysterectomy H/O esophagogastroduodenoscopy 1977 H/O colonoscopy 2016 Family History Mother Melanoma Diabetes Stroke Father CAD (coronary artery disease) unknown age of onset, [place] at 62 Cancer Family/Other Cancer Grandmother Cancer Brother Diabetes Denies family history of Clotting disorder Dementia Chronic kidney disease (CKD) Suicide Anesthesia complication Bleeding disorder Lung disease Social History Smoking and tobacco/nicotine status: never used tobacco/nicotine Alcohol intake: never Substance/Drug Use: never Household members: spouse Marital status: Current occupational status: retired Physical Exam Narrative: EXAM NARRATIVE: General: Alert, no acute distress. Skin: Warm, dry. Head: Normocephalic, atraumatic. Neck: Supple, trachea midline. Eye: Extraocular movements are intact. Ears, nose, mouth and throat: mucosa moist. Cardiovascular: Regular, Normal peripheral perfusion. Respiratory: Lungs are clear to auscultation, respirations are non-labored, breath sounds are equal, Symmetrical chest wall expansion. Gastrointestinal: Soft, Nontender, Non distended Musculoskeletal: Normal ROM, no deformity. Neurological: Alert and oriented, No focal neurological deficit observed. Psychiatric: Cooperative, appropriate mood & affect. Course Vital Signs: Vital signs: Vital Signs Temperature 97.9 F 11/02/23 10:58 Pulse Rate 66 11/02/23 15:12 Respiratory Rate 19 H 11/02/23 12:41 Blood Pressure 155/78 11/02/23 15:12 Pulse Oximetry 96 11/02/23 15:12 Oxygen Delivery Me thod Room Air 11/02/23 10:58 MDM - Weakness Medical Decision Making Medical decision making: Differential diagnosis for patient presenting with generalized weakness including but not limited to and based on the above HPI, review of systems and physical exam: Sepsis. Dehydration. Renal failure. Electrolyte abnormalities. Anemia. Congestive heart failure. Hypotension. Coronary syndrome. Hepatitis. Cirrhosis. Infections such as pneumonia, urinary tract infection, [place]ne illness, Cellulitis, Viral infections including influenza and Covid-19. Workup: labwork and lab/exam driven imaging ordered to evaluate, rule in and rule out above pathologies. Chest x-ray: No acute process. Mild cardiomegaly. Implantable loop recorder in the left chest. No infiltrate. No pneumothorax. This was reviewed and interpreted by myself the ER physician. EKG: Time 11:01 AM. Rate 69. Atrial fibrillation with controlled rate, No ST-T changes, no ectopy, This was reviewed and interpreted by myself the ER physician at 11:02 AM Lab Review: Laboratory results were reviewed and interpreted by myself the emergency room physician. Patient does not have leukocytosis but she does have an elevated lactic acid at 4.7 and was only down to 4 after receiving fluids. No renal failure. Her sugar is a bit high at 246. Urine is grossly infected. I reviewed the patient's medical record. Reexamination: Patient has had no altered mental status here but did have encephalopathy at home. She still remains quite weak. No dysrhythmias while she has been here. No increased work of breathing no focal motor deficits. Assessment and plan: Sepsis Urinary tract infection Lactic acidosis Metabolic encephalopathy Generalized weakness -2L normal saline bolus. Fluid volumes based on ideal body weight. -Rocephin was administered. -Sepsis quality measures. -Lactic acid with a reflex was ordered. -Blood cultures were ordered. -I discussed the patient with the hospitalist on-call who is admitting the patient. - Discussed findings and plan with patient. Answered any questions. - All laboratory values were reviewed and interpreted personally by myself, the ER physician - All imaging was reviewed and interpreted personally by myself, the ER physician. - Evaluation and treatment of this problem were appropriate in the emergency setting -I spent a total of >35 minutes of critical care time managing the patient, independent of any other practitioner. -The time involved in the performance of separately reportable procedures was not counted towards critical care time. Lab Data 11/02/23 11:35 11/02/23 11:35 Radiology Impressions Chest X-Ray 11/02/23 11:09 IMPRESSION: 1. No acute cardiopulmonary process. Head CT 11/02/23 11:09 IMPRESSION: 1. No evidence of intracranial hemorrhage or mass effect 2. No acute intracranial findings. Laboratory Results WBC 8.09 10^3/uL (3.29-11.43) 11/02/23 11:35 RBC 4.49 10^6/uL (3.85-5.65) 11/02/23 11:35 Hgb 13.80 g/dL (11.27-16.99) 11/02/23 11:35 Hct 43.5 % (36-47) 11/02/23 11:35 MCV 96.9 fl (85-98) 11/02/23 11:35 MCH 30.7 pg (27-33) 11/02/23 11:35 MCHC 31.7 g/dL (30-55) 11/02/23 11:35 RDW 13.4 % (12.1-15.1) 11/02/23 11:35 Plt Count 240 10^3/cmm (157-399) 11/02/23 11:35 MPV 11.9 fL (7.4-10.4) H 11/02/23 11:35 Neut % (Auto) 60.4 % 11/02/23 11:35 Lymph % (Auto) 23.2 % 11/02/23 11:35 [place] % (Auto) 11.4 % 11/02/23 11:35 Eos % (Auto) 3.7 % 11/02/23 11:35 Baso % (Auto) 1.1 % 11/02/23 11:35 Neut # (Auto) 4.88 10^3/uL (1.8-7.7) 11/02/23 11:35 Lymph # (Auto) 1.9 10^3/uL (0.8-4.8) 11/02/23 11:35 [place] # (Auto) 0.9 10^3/uL (0.2-0.9) 11/02/23 11:35 Eos # (Auto) 0.3 10^3/uL (0.0-0.8) 11/02/23 11:35 Baso # (Auto) 0.1 10^3/uL (0.0-0.1) 11/02/23 11:35 Nucleated RBC % (auto) 0 % 11/02/23 11:35 Nucleated RBCs # 0.0 /100WBC 11/02/23 11:35 Sodium 139 mmol/L (136-145) 11/02/23 11:35 Potassium 4.0 mmol/L (3.5-5.1) 11/02/23 11:35 Chloride 98 mmol/L (98-107) 11/02/23 11:35 Carbon Dioxide 24 mmol/L (22-29) 11/02/23 11:35 Anion Gap 21.0 (5-19) H 11/02/23 11:35 BUN 14 mg/dL (8-23) 11/02/23 11:35 Creatinine 1.0 mg/dL (0.5-0.9) H 11/02/23 11:35 GFR Calculation Not Reportable 11/02/23 11:35 Glucose 246 mg/dL (65-115) H 11/02/23 11:35 Calculated Osmolality 297 mOsm/kg (285-295) H 11/02/23 11:35 Lactic Acid 4.7 mmol/L (0.5-2.2) H* 11/02/23 11:35 Lactic Acid (Sepsis) 4.0 mmol/L (0.5-2.2) H 11/02/23 14:12 Calcium 9.4 mg/dL (8.5-10.5) 11/02/23 11:35 Total Bilirubin 0.4 mg/dL (0.15-1.2) 11/02/23 11:35 AST 32 U/L (0-32) 11/02/23 11:35 ALT 24 U/L (0-33) 11/02/23 11:35 Alkaline Phosphatase 66 U/L (35-105) 11/02/23 11:35 Troponin T Baseline 21 ng/L (0-10) H 11/02/23 11:35 Troponin T 120 Minute 17.38 ng/L (0-10) H 11/02/23 13:23 Delta Troponin T -3.62 ABS# (0-10) L 11/02/23 13:23 C-Reactive Protein 7.7 mg/L (0.0-4.9) H 11/02/23 11:35 NT-Pro-B Natriuret Pep 97 pg/mL (0-450) 11/02/23 11:35 Total Protein 7.7 g/dL (6.6-8.7) 11/02/23 11:35 Albumin 4.1 g/dL (3.5-5.2) 11/02/23 11:35 Globulin 3.6 g/dL (1.3-4.6) 11/02/23 11:35 Urine Color Yellow (Yellow) 11/02/23 11:26 Urine Appearance Cloudy (CLEAR) A 11/02/23 11:26 Urine pH 5 (5-7) 11/02/23 11:26 Ur Specific [place] 1.020 (1.005-1.030) 11/02/23 11:26 Urine Protein Neg (Negative) 11/02/23 11:26 Urine Glucose (UA) Norm (Normal) 11/02/23 11:26 Urine Ketones 1+ (Negative) H 11/02/23 11:26 Urine Blood Neg (Negative) 11/02/23 11:26 Urine Nitrate Negative (Negative) 11/02/23 11:26 Urine Bilirubin Neg (Negative) 11/02/23 11:26 Urine Urobilinogen Norm mg/dL (Negative) 11/02/23 11:26 Ur Leukocyte Esterase 2+ (Negative) H 11/02/23 11:26 Urine RBC 5-10 /hpf (0-2) H 11/02/23 11:26 Urine WBC 55-80 /hpf (0-5) H 11/02/23 11:26 Ur Squamous Epith Cells 40-55 /hpf (0-5) H 11/02/23 11:26 Ur Transition Epith Cell 0-4 /hpf 11/02/23 11:26 Amorphous Sediment Not Reportable 11/02/23 11:26 Urine Bacteria Trace /hpf (NONE) 11/02/23 11:26 Urine Mucus Trace /hpf 11/02/23 11:26 All radiology interpretation(s) finalized by discharge Discharge Plan Discharge Patient Disposition: Admitted As Inpatient Clinical Impression: Atrial fibrillation, Acute metabolic encephalopathy, Lactic acidosis, Generalized weakness Urinary tract infection Qualifiers: Urinary tract infection type: acute cystitis Hematuria presence: without hematuria Qualified Code(s): N30.00 - Acute cystitis without hematuria Sepsis Qualifiers: Sepsis type: sepsis due to unspecified organism Sepsis acute organ dysfunction status: without acute organ dysfunction Qualified Code(s): A41.9 - Sepsis, unspecified organism Condition: Stable Coding Level of Care Code ED Set Up Mold Technician for Hakeem Sebastian
[2023-11-02 11:54] LABS: Bilirubin Urine Neg (Negative); Blood Urine Neg (Negative); Glucose Urine UA Norm (Normal); Ketones Urine 1+ (Negative); Nitrate Urine Negative (Negative); Protein Urine Neg (Negative); Urine Appearance Cloudy (CLEAR); Urine Color Yellow (Yellow); Urobilinogen Urine Norm (Negative); pH Urine 5 (5-7)
[2023-11-02 11:55] LABS: Add Urine Culture? Yes; Bacteria Urine TRACE /hpf; Leukocyte Esterase Urine 2+ (Negative); Mucus Urine TRACE /hpf; Squamous Epithelial Cell Urine 40-55 /hpf (0-5); Transitional Epi Cells Urine 0-4 /hpf; WBC Urine 55-80 /hpf (0-5)
[2023-11-02 11:57] LABS: Basophils # 0.1 10^3/uL (0.0-0.1); Basophils % 1.1 %; Eosinophils # 0.3 10^3/uL (0.0-0.8); Eosinophils % 3.7 %; Hematocrit 43.5 % (36-47); Lymphocytes # 1.9 10^3/uL (0.8-4.8); Lymphocytes % 23.2 %; Mean Corpuscular HGB Conc 31.7 g/dL (30-55); Mean Corpuscular Hemoglobin 30.7 pg (27-33); Mean Corpuscular Volume 96.9 fl (85-98); Mean Platelet Volume 11.9 fL (7.4-10.4); Monocytes # 0.9 10^3/uL (0.2-0.9); Monocytes % 11.4 %; Neutrophils # 4.88 10^3/uL (1.8-7.7); Neutrophils % 60.4 %; Nucleated Red Blood Cells % 0 %; Platelet Count 240 10^3/cmm (157-399); Red Blood Count 4.49 10^6/uL (3.85-5.65); Red Cell Distribution Width 13.4 % (12.1-15.1); White Blood Count 8.09 10^3/uL (3.29-11.43)
[2023-11-02 12:10] LABS: Troponin(5th) Baseline 21 ng/L (0-10)
[2023-11-02 12:11] LABS: Lactic Sepsis W/Reflex 4.7 mmol/L (0.5-2.2)
[2023-11-02 12:26] LABS: Alanine Aminotransferase 24 U/L (0-33); Albumin Level 4.1 g/dL (3.5-5.2); Alkaline Phosphatase 66 U/L (35-105); Aspartate Amino Transferase 32 U/L (0-32); Blood Urea Nitrogen 14 mg/dL (8-23); C Reactive Protein 7.7 mg/L (0.0-4.9); Calcium 9.4 mg/dL (8.5-10.5); Carbon Dioxide 24 mmol/L (22-29); Chloride 98 mmol/L (98-107); Globulin 3.6 g/dL (1.3-4.6); Glucose 246 mg/dL (65-115); NT Pro B Type Natriuretic Pept 97 pg/mL (0-450); Osmolality Calculated 297 mOsm/kg (285-295); Sodium 139 mmol/L (136-145); Total Bilirubin 0.4 mg/dL (0.15-1.2); Total Protein 7.7 g/dL (6.6-8.7)
[2023-11-02] MEDS: sodium chloride 0.9% 1,000 ML 999 ML IV ×2 (12:28→15:44)
[2023-11-02] MEDS: cefTRIAXone 1,000 MG in sodium chloride 0.9% (plus) 50 ML 100 MG IV (12:28)
--- NOTE | 2023-11-02 13:10 | ECG_ITS ---
[facility] Test Date: 2023-11-02 Pat Name: Kadi Hernandez Department: Room: Gender: Female Contracting Executive: : 1945 Requested By: Mariama Davis Order Number: [id number] Al MD: Barrington Galan M.D. Measurements Intervals [place] Rate: 64 P: 49 GA: 136 QRS: 12 QRSD: 84 T: -12 QT: 405 QTc: 418 Interpretive Statements SINUS RHYTHM NONSPECIFIC T-WAVE ABNORMALITY Compared to ECG 11/02/2023 11:01:16 T-wave abnormality still present Electronically Signed On 11-02-2023 14:12:12 CDT by Barrington Galan M.D. [id number]
[2023-11-02 13:33] LABS: Reflex Lactate Order REFLEX LACTIC ORDERD
[2023-11-02 13:49] LABS: Troponin 5 2HR 17.38 ng/L (0-10)
[2023-11-02 13:53] LABS: Troponin 5 2HR Delta -3.62 ABS# (0-10)
--- NOTE | 2023-11-02 16:01 | P.HP_ITS ---
Providers/Chief Complaint 2 Primary Care Provider: CEDRIC Ayon Chief Complaint: foot numbness, chest pain History of Present Illness Kadi Hernandez is a 78 year old female who has a pacemaker takes propranolol and carbidopa levodopa for her tremors, present to the hospital for 1 week history of abdominal pain nausea dysuria. She has been endorsing subjective fevers, came from home, lives with her [place] [address] [place], active for her age, walks independently. She has not noticed any nausea, vomiting chest pain or shortness of breath. In the hospital she has been diagnosed with sepsis related to UTI she has received septic bolus received blood cultures urine culture and antibiotics She was walking out of the bathroom when I entered the room Review of Systems 2 Const: Reports: fever(s) and chills Eyes: Denies: change in vision ENMT: Denies: throat pain Card: Denies: chest pain Resp: Denies: dyspnea GI: Reports: nausea Medications/Allergies Home Medications Medication Instructions Recorded Confirmed Last Taken Type fluticasone propionate 50 2 spray intranasal DAILY PRN 09/15/21 11/02/23 Unknown History mcg/actuation nasal Allergy Symptoms spray,suspension (Flonase Allergy Relief) rivaroxaban 20 mg tablet (Xarelto) 20 mg PO DAILY #100 tabs 04/24/23 11/02/23 11/02/23 Rx allopurinol 300 mg tablet 300 mg PO DAILY PRN gout 07/29/23 11/02/23 Unknown History atorvastatin 20 mg tablet 20 mg PO BEDTIME 07/29/23 11/02/23 11/01/23 History carbidopa 10 mg-levodopa 100 mg 1 tab PO QAM 07/29/23 11/02/23 11/01/23 History tablet chlorthalidone 25 mg tablet 25 mg PO QAM 07/29/23 11/02/23 11/02/23 History furosemide 20 mg tablet 20 mg PO DAILY PRN Edema 07/29/23 11/02/23 Unknown History irbesartan 150 mg tablet 150 mg PO QAM 07/29/23 11/02/23 11/02/23 History isosorbide mononitrate 60 mg 60 mg PO QAM 07/29/23 11/02/23 11/02/23 History tablet,extended release 24 hr loratadine 10 mg tablet 10 mg PO DAILY PRN Allergy Symptoms 07/29/23 11/02/23 Unknown History potassium chloride 10 mEq 10 meq PO DAILY PRN takes with 07/29/23 11/02/23 Unknown History tablet,extended release(part/cryst) lasix primidone 50 mg tablet 50 mg PO BEDTIME 07/29/23 11/02/23 11/01/23 History icosapent ethyl 1 gram capsule 1 g PO DAILY #90 caps 08/07/23 11/02/23 11/01/23 Rx (Vascepa) donepezil 10 mg tablet 10 mg PO DAILY 11/02/23 11/02/23 11/02/23 History ketoconazole 2 % shampoo See Rx Instructions .Route 11/02/23 11/02/23 Unknown History .COMPLEX PRN SCALP IRRITATION propranolol 80 mg capsule,24 80 mg PO DAILY 11/02/23 11/02/23 11/02/23 History hr,extended release triamcinolone acetonide 0.1 % 1 applic topical BID 11/02/23 11/02/23 Unknown History topical cream Allergies Allergy/AdvReac Type Severity Reaction Status Date / Time lisinopril Allergy coughing Verified 08/15/23 13:10 PFSH Acute 2 PFSH: Medical History HTN (hypertension) Gout Dyslipidemia Melanoma Atrial fibrillation Surgical History Hx of cataract extraction History of cholecystectomy Status post laparoscopic cholecystectomy (03/30/20) History of removal of ovarian cyst History of carpal tunnel release S/P complete hysterectomy H/O esophagogastroduodenoscopy 1977 H/O colonoscopy 2016 Family History Mother Melanoma Diabetes Stroke Father CAD (coronary artery disease) unknown age of onset, [place] at 62 Cancer Family/Other Cancer Grandmother Cancer Brother Diabetes Denies family history of Clotting disorder Dementia Chronic kidney disease (CKD) Suicide Anesthesia complication Bleeding disorder Lung disease Social History Smoking and tobacco/nicotine status: never used tobacco/nicotine Alcohol intake: never Substance/Drug Use: never Household members: spouse Marital status: Current occupational status: retired Vitals/I&O/Wt Last Vital Signs Temp 97.9 F 11/02/23 10:58 Pulse 66 11/02/23 15:12 Resp 19 H 11/02/23 12:41 BP 155/78 11/02/23 15:12 Pulse Ox 96 11/02/23 15:12 O2 Del Method Room Air 11/02/23 10:58 11/02/23 11/02/23 11/02/23 06:59 14:59 22:59 Intake Total 1050 / 1050 Balance 1050 / 1050 Weight last 48 hrs Weight 99.79 kg Physical Exam 2 Narrative: Awake and alert Pleasant Lymphedema of lower extremity Pleasant cooperative Nonfocal neuroexam Currently on room air Hypertensive Abdomen soft S1, S2 No audible stridor or wheezing Data 11/02/23 11:35 11/02/23 11:35 Micro: Microbiology 11/02/23 11:40 Blood Culture - Preliminary Blood SPECIMEN COLLECTED 11/02/23 11:35 Blood Culture - Preliminary Blood SPECIMEN COLLECTED A&P Assessment and plan (1) HTN (hypertension): Qualifiers: Hypertension type: unspecified Qualified Code(s): I10 - Essential (primary) hypertension (2) Atrial fibrillation: Qualifiers: Atrial fibrillation type: unspecified Qualified Code(s): I48.91 - Unspecified atrial fibrillation (3) Lactic acidosis: (4) UTI (urinary tract infection): (5) Sepsis: Qualifiers: Sepsis acute organ dysfunction status: without acute organ dysfunction Sepsis type: sepsis due to unspecified organism Qualified Code(s): A41.9 - Sepsis, unspecified organism (6) Essential tremor: (7) Generalized weakness: Plan Generalized weakness and fatigue Sepsis related to UTI Criteria met with fever tachypnea tachycardia, subjective fevers at home Respiratory rate above 90 No leukocytosis, high lactic acid Source of infection seems to be UTI Requested urine culture blood culture, received septic bolus Continue ceftriaxone Continue IV fluids till 11 PM I will hold her propranolol and continue carbidopa levodopa however increase the dose to 3 times a day Patient has established diagnosis essential tremors, stating that she is also on Parkinson's meds No active chest pain Lymphedema of lower extremity Check D-dimer Repeat lactic acid in the morning Currently she is hemodynamically stable Continue antihypertensive regimen Chronic kidney disease creatinine seems around baseline check procalcitonin and B12 DNR/DNI: Discussed with the patient Attestations 2 Medical Necessity Statement*: Anticipating more than 2 midnights for management of sepsis, UTI, Has waited 1 week to come to the hospital, rule out bacteremia Diagnoses Essential hypertension I10 Hypertension type: unspecified Atrial fibrillation, unspecified type I48.91 Atrial fibrillation type: unspecified Lactic acidosis E87.20 UTI (urinary tract infection) N39.0 Sepsis A41.9 Sepsis acute organ dysfunction status: without acute organ dysfunction Sepsis type: sepsis due to unspecified organism Essential tremor G25.0 Generalized weakness R53.1
--- NOTE | 2023-11-02 17:10 | ECG_ITS ---
[facility] Test Date: 2023-11-02 Pat Name: Kadi Hernandez Department: Room: 269 Gender: Female Body Repairer: : 1945 Requested By: Mariama Davis Order Number: [id number] Al MD: Mandie Montano M.D. Measurements Intervals [place] Rate: 79 P: -41 [place]: 115 QRS: 16 QRSD: 80 T: -21 QT: 361 QTc: 414 Interpretive Statements Possible multifocal atrial rhythm NONSPECIFIC T-WAVE ABNORMALITY Compared to ECG 11/02/2023 13:44:01 Short [place] interval now present T-wave abnormality still present Electronically Signed On 11-03-2023 20:47:20 CDT by Mandie Montano M.D. [id number]
[2023-11-02] MEDS: sodium chloride 0.9% 1,000 ML 50 ML IV (18:02)
[2023-11-02] MEDS: triamcinolone 0.1% cream 15 gm 1 APPLIC TOPICAL (18:10)
[2023-11-02 18:28] LABS: Troponin 5 6HR 17.99 ng/L (0-10); Troponin 5 6HR Delta -3.01 ng/L (0-12)
[2023-11-02 19:19] LABS: Vitamin B12 233 pg/mL (232-1245)
[2023-11-02] MEDS: acetaminophen 500 mg Tablet PO (20:37)
[2023-11-03] VITALS (7 sets, daily range): BP systolic 110–154; BP diastolic 54–88; PULSE 64–94; RESP 15–18; TEMP 36.6–36.8; O2SAT 93–96; BMI 43.6
[2023-11-03] MEDS: chlorthalidone 25 mg Tablet PO (05:13)
[2023-11-03] MEDS: losartan 50 mg Tablet PO (05:13)
[2023-11-03] MEDS: isosorbide mononitrate ER 60 mg Tablet PO (05:13)
[2023-11-03 05:39] LABS: Basophils # 0.1 10^3/uL (0.0-0.1); Eosinophils # 0.3 10^3/uL (0.0-0.8); Eosinophils % 3.9 %; Hematocrit 38.3 % (36-47); Lymphocytes # 1.8 10^3/uL (0.8-4.8); Mean Corpuscular HGB Conc 32.1 g/dL (30-55); Mean Corpuscular Hemoglobin 31.1 pg (27-33); Mean Platelet Volume 11.2 fL (7.4-10.4); Monocytes # 0.8 10^3/uL (0.2-0.9); Monocytes % 10.3 %; Neutrophils # 4.64 10^3/uL (1.8-7.7); Neutrophils % 60.5 %; Nucleated Red Blood Cells % 0 %; Platelet Count 194 10^3/cmm (157-399); Red Blood Count 3.95 10^6/uL (3.85-5.65); Red Cell Distribution Width 13.4 % (12.1-15.1); White Blood Count 7.67 10^3/uL (3.29-11.43)
[2023-11-03 06:04] LABS: Anion Gap 17.8 (5-19); Blood Urea Nitrogen 13 mg/dL (8-23); Calcium 8.8 mg/dL (8.5-10.5); Carbon Dioxide 25 mmol/L (22-29); Chloride 102 mmol/L (98-107); Glucose 153 mg/dL (65-115); Lactic Sepsis W/Reflex 3.4 mmol/L (0.5-2.2); Magnesium 1.4 mg/dL (1.7-2.3); Osmolality Calculated 295 mOsm/kg (285-295); Potassium 3.8 mmol/L (3.5-5.1); Sodium 141 mmol/L (136-145)
[2023-11-03 07:23] LABS: Reflex Lactate Order REFLEX LACTIC ORDERD
[2023-11-03 08:57] LABS: Lactic Acid level (Lactate) 5.1 mmol/L (0.5-2.2)
[2023-11-03] MEDS: rivaroxaban 10 mg Tablet 20 MG PO (08:58)
[2023-11-03] MEDS: donepezil 5 MG Tablet 10 MG PO (08:58)
[2023-11-03] MEDS: cefTRIAXone 1,000 MG in sodium chloride 0.9% (plus) 50 ML 100 MG IV (09:00)
--- NOTE | 2023-11-03 09:01 | PC.NURSE ---
This nurse took a critical lab result for lactic acid of 5.1 for YANDY Stewart. Pat notifed and critical lab assessment completed.
[2023-11-03] MEDS: triamcinolone 0.1% cream 15 gm 1 APPLIC TOPICAL ×2 (09:05→17:42)
--- NOTE | 2023-11-03 10:05 | PC.CHAP ---
Pastoral Care Encounter/Spiritual Assessment Type of Contact [] Declined latex thread machine operator visit [] Patient/Family/Request visit [] Outpatient visit [] Follow-up visit [] Physician referral [] Code/Alert [x] Routine visit [] Staff referral [] Actively dying [] Patient sleeping [] Family support [] [] Out of room [] Palliative care [] [x] Receiving care in room [] Pre-surgical visit [] Trauma [] Long length of stay [] ICU visit [] Other: Relational/Emotional Strength [] Patient feels connected with others/family/visitors/staff [] Distress [] Loneliness/isolation [] Abandonment Spirituality of Patient [] Person of Sarah [] Attends Restoration of their Sarah [] Believes in Prayer [] Reads Bible or Mosque materials [] There are Spiritual issues to be addressed Skin Grader Interventions [] Prayer [] Active listening [] Non-anxious presence [] Spiritual/emotional support [] Crisis/trauma care [] Spiritual counseling [] Bereavement support [] Provided bereavement packet [] Provided Bible/devotional materials [] Provided toy/stuffed animal, coloring book to patient or family member [] Provided Communion [] Anointing/[place] [] Salvation [] Completed spiritual assessment [] Other: Impact on Illness or Injury [] Angry [] Fearful [] Anxious [] Often cries [] Exhaustion [] Unable to work [] Unable to attend catholic [] Unable to walk/stand [] Unable to read [] Unable to drive [] Unable to eat/drink [] Unable to sleep [] Unable to be with family [] Patient intubated [] Other: Summary Time spent with patient
--- NOTE | 2023-11-03 10:06 | PC.SOCIAL ---
IMM Update pg 2 of IMM updated and reviewed w/ patient. Copy provided and copy dated, initialed and placed in chart.
--- NOTE | 2023-11-03 10:45 | PM.PN ---
Subjective Subjective: Patient has lactic acidemia I do believe this is likely type II related patient has constant tremors which could be contributing to his lactic acidemia however she is not showing any worsening of sepsis Patient was asking if she could go home I have asked her to stay 1 more day to get antibiotics and IV fluids No fever, cultures negative to date Possible discharge by tomorrow Family is at the bedside Patient is in the process of getting her services switched to from [facility] to our hospital for cardiology and neurology services Vitals/I&O/Wt Last Vital Signs Temp 97.9 F 11/03/23 07:51 Pulse 79 11/03/23 07:51 Resp 15 11/03/23 07:51 BP 113/62 11/03/23 07:51 Pulse Ox 94 11/03/23 07:51 O2 Del Method Room Air 11/03/23 07:51 11/02/23 11/03/23 11/03/23 22:59 06:59 14:59 Intake Total 1300 / 2350 370 / 2720 410 / 410 Output Total 500 / 500 Balance 1300 / 2350 -130 / 2220 410 / 410 Weight last 48 hrs Weight 104.78 kg Weight 106.549 kg Weight 99.79 kg Physical Exam Narrative: Awake and alert Essential tremors At rest Awake and alert P pleasant cooperative No sign of meningitis Abdomen soft No audible stridor or wheezing Currently on room air Hemodynamically stable Family is at the bedside Data 11/03/23 05:25 11/03/23 05:25 Micro: Microbiology 11/02/23 11:40 Blood Culture - Preliminary Blood SPECIMEN COLLECTED 11/02/23 11:35 Blood Culture - Preliminary Blood SPECIMEN COLLECTED A&P Assessment and plan (1) HTN (hypertension): Qualifiers: Hypertension type: unspecified Qualified Code(s): I10 - Essential (primary) hypertension (2) Elevated blood pressure reading: (3) Atrial fibrillation: Qualifiers: Atrial fibrillation type: unspecified Qualified Code(s): I48.91 - Unspecified atrial fibrillation (4) Palpitation: (5) Bradycardia: (6) Lactic acidosis: (7) UTI (urinary tract infection): (8) Urinary tract infection: Qualifiers: Hematuria presence: without hematuria Urinary tract infection type: acute cystitis Qualified Code(s): N30.00 - Acute cystitis without hematuria (9) Sepsis: Qualifiers: Sepsis acute organ dysfunction status: without acute organ dysfunction Sepsis type: sepsis due to unspecified organism Qualified Code(s): A41.9 - Sepsis, unspecified organism (10) Essential tremor: (11) Generalized weakness: Plan Sepsis related to UTI: Improving Follow-up urine culture Type D lactic acidemia Left related to underlying resting tremors I do not think this is related to worsening of sepsis or hypoperfusion I would like to keep her on IV fluids for next 10 hours Essential tremors I will reduce the dose of propranolol to 20 mg daily instead of twice a day Will change carbidopa liquid dose to twice a day regimen no sign of bradycardia during this hospitalization She has a loop recorder She is being evaluated by Dr. Montano for pacemaker outpatient DNR/DNI She has grade 2 diastolic function without acute exacerbation Likely will be [facility]cessity Statement*: dc on Monday Diagnoses Essential hypertension I10 Hypertension type: unspecified Elevated blood pressure reading R03.0 Atrial fibrillation, unspecified type I48.91 Atrial fibrillation type: unspecified Palpitation R00.2 Bradycardia R00.1 Lactic acidosis E87.20 UTI (urinary tract infection) N39.0 Sepsis A41.9 Sepsis acute organ dysfunction status: without acute organ dysfunction Sepsis type: sepsis due to unspecified organism Essential tremor G25.0 Generalized weakness R53.1
[2023-11-03] MEDS: sodium chloride 0.9% 1,000 ML 100 ML IV (11:32)
[2023-11-03] MEDS: acetaminophen 500 mg Tablet PO (15:03)
[2023-11-04 00:04] VITALS: BP 151/83; PULSE 79; RESP 16; TEMP 36.8; O2SAT 94
[2023-11-04 04:40] VITALS: BP 144/70; PULSE 76; RESP 15; TEMP 36.6; O2SAT 93
[2023-11-04] MEDS: isosorbide mononitrate ER 60 mg Tablet PO (05:37)
[2023-11-04] MEDS: chlorthalidone 25 mg Tablet PO (05:37)
[2023-11-04 05:38] VITALS: BP 144/70
[2023-11-04] MEDS: losartan 50 mg Tablet PO (05:38)
[2023-11-04 05:57] LABS: Basophils # 0.1 10^3/uL (0.0-0.1); Basophils % 1.1 %; Eosinophils # 0.3 10^3/uL (0.0-0.8); Hematocrit 36.8 % (36-47); Lymphocytes # 1.6 10^3/uL (0.8-4.8); Lymphocytes % 25.3 %; Mean Corpuscular HGB Conc 32.1 g/dL (30-55); Mean Corpuscular Hemoglobin 31.3 pg (27-33); Mean Corpuscular Volume 97.6 fl (85-98); Mean Platelet Volume 11.6 fL (7.4-10.4); Monocytes # 0.8 10^3/uL (0.2-0.9); Monocytes % 11.9 %; Neutrophils # 3.63 10^3/uL (1.8-7.7); Neutrophils % 57.4 %; Nucleated Red Blood Cells % 0 %; Platelet Count 183 10^3/cmm (157-399); Red Blood Count 3.77 10^6/uL (3.85-5.65); Red Cell Distribution Width 13.5 % (12.1-15.1); White Blood Count 6.32 10^3/uL (3.29-11.43)
[2023-11-04 06:12] LABS: Anion Gap 17.9 (5-19); Blood Urea Nitrogen 12 mg/dL (8-23); Calcium 8.8 mg/dL (8.5-10.5); Carbon Dioxide 25 mmol/L (22-29); Chloride 102 mmol/L (98-107); Glucose 148 mg/dL (65-115); Osmolality Calculated 295 mOsm/kg (285-295); Potassium 3.9 mmol/L (3.5-5.1); Sodium 141 mmol/L (136-145)
[2023-11-04 08:21] VITALS: BP 123/73; PULSE 76; RESP 16; TEMP 36.4; O2SAT 94
[2023-11-04 08:23] LABS: Lactic Sepsis W/Reflex 3.5 mmol/L (0.5-2.2)
[2023-11-04] MEDS: cefTRIAXone 1,000 MG in sodium chloride 0.9% (plus) 50 ML 100 MG IV (08:39)
[2023-11-04] MEDS: triamcinolone 0.1% cream 15 gm 1 APPLIC TOPICAL (08:40)
[2023-11-04] MEDS: donepezil 5 MG Tablet 10 MG PO (08:41)
[2023-11-04] MEDS: rivaroxaban 10 mg Tablet 20 MG PO (08:41)
--- NOTE | 2023-11-04 09:31 | P.DS_ITS ---
Discharge Providers Date of Admission: 11/02/23 16:05 Date of Discharge: November 04, 2023 Attending Provider at Admission: Wendie Jin MD Attending Provider at Discharge: Wendie Jin MD Primary Care Provider: CEDRIC Ayon Diagnoses at Discharge Discharge Diagnosis (1) HTN (hypertension): Status: Acute Qualifiers: Hypertension type: unspecified Qualified Code(s): I10 - Essential (primary) hypertension (2) Elevated blood pressure reading: Status: Acute (3) Atrial fibrillation: Status: Acute Qualifiers: Atrial fibrillation type: unspecified Qualified Code(s): I48.91 - Unspecified atrial fibrillation (4) Palpitation: Status: Acute (5) Bradycardia: Status: Acute (6) Lactic acidosis: Status: Acute (7) UTI (urinary tract infection): Status: Acute (8) Sepsis: Status: Acute Qualifiers: Sepsis acute organ dysfunction status: without acute organ dysfunction Sepsis type: sepsis due to unspecified organism Qualified Code(s): A41.9 - Sepsis, unspecified organism (9) Essential tremor: Status: Acute (10) Generalized weakness: Status: Acute Reason for Visit Reason for Visit: foot numbness, chest pain Hospital Course Hospital Course 70-year-old female with history of essential tremors, takes propranolol 20 mg twice a day regimen along carbidopa levodopa once a day regimen however does not have official parkinson diagnosis presented to the hospital with sepsis related to UTI, patient was given septic bolus along antibiotics, her lactic acid remained high because of her persistent tremors I do not think there is any progression of sepsis, she remained afebrile without leukocytosis urine culture showing mixed glory I will discharge her on levofloxacin 7-day regimen. Head CT unremarkable. Chest x-ray unremarkable. Please note she follows up with Dr. Montano because there was a consideration given to pacemaker insertion if she remained bradycardic, because of bradycardia was deemed secondary to use of propranolol which has been reduced dose. During hospitalization patient remained in sinus rhythm no bradycardia noted. I have increased the dose of carbidopa levodopa to twice a day and would like to wean her off propranolol will only do propranolol 20 mg daily instead of twice a day She has a loop recorder in place which is being monitored by Dr. Montano. Physical Exam Narrative: Pleasant cooperative Essential tremors Nonfocal neuroexam GCS 15 Hemodynamically stable Discharge Data Studies Completed and Pending Completed Studies During Hospitalization Category Date Time Status CT head wo con* [id number] Stat Cat Scan 11/02/23 11:09 Completed XR chest 1V portable [id number] Stat Exams 11/02/23 11:09 Completed Pending at discharge Category Date Time Status Blood Culture Stat Lab 11/02/23 11:40 Results Urine Culture Stat Lab 11/02/23 11:26 Results Radiology Impressions Chest X-Ray 11/02/23 11:09 IMPRESSION: 1. No acute cardiopulmonary process. Head CT 11/02/23 11:09 IMPRESSION: 1. No evidence of intracranial hemorrhage or mass effect 2. No acute intracranial findings. Laboratory Results WBC 6.32 10^3/uL (3.29-11.43) 11/04/23 05:30 RBC 3.77 10^6/uL (3.85-5.65) L 11/04/23 05:30 Hgb 11.80 g/dL (11.27-16.99) 11/04/23 05:30 Hct 36.8 % (36-47) 11/04/23 05:30 MCV 97.6 fl (85-98) 11/04/23 05:30 MCH 31.3 pg (27-33) 11/04/23 05:30 MCHC 32.1 g/dL (30-55) 11/04/23 05:30 RDW 13.5 % (12.1-15.1) 11/04/23 05:30 Plt Count 183 10^3/cmm (157-399) 11/04/23 05:30 MPV 11.6 fL (7.4-10.4) H 11/04/23 05:30 Neut % (Auto) 57.4 % 11/04/23 05:30 Lymph % (Auto) 25.3 % 11/04/23 05:30 [place] % (Auto) 11.9 % 11/04/23 05:30 Eos % (Auto) 4.0 % 11/04/23 05:30 Baso % (Auto) 1.1 % 11/04/23 05:30 Neut # (Auto) 3.63 10^3/uL (1.8-7.7) 11/04/23 05:30 Lymph # (Auto) 1.6 10^3/uL (0.8-4.8) 11/04/23 05:30 [place] # (Auto) 0.8 10^3/uL (0.2-0.9) 11/04/23 05:30 Eos # (Auto) 0.3 10^3/uL (0.0-0.8) 11/04/23 05:30 Baso # (Auto) 0.1 10^3/uL (0.0-0.1) 11/04/23 05:30 Nucleated RBC % (auto) 0 % 11/04/23 05:30 Nucleated RBCs # 0.0 /100WBC 11/04/23 05:30 Sodium 141 mmol/L (136-145) 11/04/23 05:30 Potassium 3.9 mmol/L (3.5-5.1) 11/04/23 05:30 Chloride 102 mmol/L (98-107) 11/04/23 05:30 Carbon Dioxide 25 mmol/L (22-29) 11/04/23 05:30 Anion Gap 17.9 (5-19) 11/04/23 05:30 BUN 12 mg/dL (8-23) 11/04/23 05:30 Creatinine 0.9 mg/dL (0.5-0.9) 11/04/23 05:30 GFR Calculation Not Reportable 11/04/23 05:30 Glucose 148 mg/dL (65-115) H 11/04/23 05:30 Calculated Osmolality 295 mOsm/kg (285-295) 11/04/23 05:30 Lactic Acid 3.5 mmol/L (0.5-2.2) H 11/04/23 07:52 Lactic Acid (Sepsis) 5.1 mmol/L (0.5-2.2) H* 11/03/23 08:28 Calcium 8.8 mg/dL (8.5-10.5) 11/04/23 05:30 Magnesium 1.4 mg/dL (1.7-2.3) L 11/03/23 05:25 Total Bilirubin 0.4 mg/dL (0.15-1.2) 11/02/23 11:35 AST 32 U/L (0-32) 11/02/23 11:35 ALT 24 U/L (0-33) 11/02/23 11:35 Alkaline Phosphatase 66 U/L (35-105) 11/02/23 11:35 Troponin T Baseline 21 ng/L (0-10) H 11/02/23 11:35 Troponin T 120 Minute 17.38 ng/L (0-10) H 11/02/23 13:23 Delta Troponin T -3.62 ABS# (0-10) L 11/02/23 13:23 Troponin T Hi Sens 6Hr 17.99 ng/L (0-10) H 11/02/23 18:00 Troponin T Hi Sens 6Hr Delta -3.01 ng/L (0-12) L 11/02/23 18:00 C-Reactive Protein 7.7 mg/L (0.0-4.9) H 11/02/23 11:35 NT-Pro-B Natriuret Pep 97 pg/mL (0-450) 11/02/23 11:35 Total Protein 7.7 g/dL (6.6-8.7) 11/02/23 11:35 Albumin 4.1 g/dL (3.5-5.2) 11/02/23 11:35 Globulin 3.6 g/dL (1.3-4.6) 11/02/23 11:35 Vitamin B12 233 pg/mL (232-1245) 11/02/23 18:00 Procalcitonin 0.10 ng/mL (0-0.5) 11/02/23 13:27 Urine Color Yellow (Yellow) 11/02/23 11:26 Urine Appearance Cloudy (CLEAR) A 11/02/23 11:26 Urine pH 5 (5-7) 11/02/23 11:26 Ur Specific [place] 1.020 (1.005-1.030) 11/02/23 11:26 Urine Protein Neg (Negative) 11/02/23 11:26 Urine Glucose (UA) Norm (Normal) 11/02/23 11:26 Urine Ketones 1+ (Negative) H 11/02/23 11:26 Urine Blood Neg (Negative) 11/02/23 11:26 Urine Nitrate Negative (Negative) 11/02/23 11:26 Urine Bilirubin Neg (Negative) 11/02/23 11:26 Urine Urobilinogen Norm mg/dL (Negative) 11/02/23 11:26 Ur Leukocyte Esterase 2+ (Negative) H 11/02/23 11:26 Urine RBC 5-10 /hpf (0-2) H 11/02/23 11:26 Urine WBC 55-80 /hpf (0-5) H 11/02/23 11:26 Ur Squamous Epith Cells 40-55 /hpf (0-5) H 11/02/23 11:26 Ur Transition Epith Cell 0-4 /hpf 11/02/23 11:26 Amorphous Sediment Not Reportable 11/02/23 11:26 Urine Bacteria Trace /hpf (NONE) 11/02/23 11:26 Urine Mucus Trace /hpf 11/02/23 11:26 Vitals Last Vital Signs Temp 97.5 F L 11/04/23 08:21 Pulse 76 11/04/23 08:21 Resp 16 11/04/23 08:21 BP 123/73 11/04/23 08:21 Pulse Ox 94 11/04/23 08:21 O2 Del Method Room Air 11/04/23 08:21 Discharge Plan Discharge Patient Disposition: Home Condition: Stable Prescriptions: New levofloxacin 750 mg tablet 750 mg PO DAILY 7 Days Qty: 7 0RF propranolol 20 mg tablet 20 mg PO .once daily Qty: 10 0RF Continued fluticasone propionate [Flonase Allergy Relief] 50 mcg/actuation spray,suspension 2 spray intranasal DAILY PRN (Reason: Allergy Symptoms) Rx Instructions: administer into each nostril Xarelto 20 mg tablet 20 mg PO DAILY Qty: 100 3RF Vascepa 1 gram capsule 1 g PO DAILY Qty: 90 3RF primidone 50 mg tablet 50 mg PO BEDTIME atorvastatin 20 mg tablet 20 mg PO BEDTIME isosorbide mononitrate 60 mg tablet extended release 24 hr 60 mg PO QAM allopurinol 300 mg tablet 300 mg PO DAILY PRN (Reason: gout) furosemide 20 mg tablet 20 mg PO DAILY PRN (Reason: Edema) irbesartan 150 mg tablet 150 mg PO QAM loratadine 10 mg tablet 10 mg PO DAILY PRN (Reason: Allergy Symptoms) potassium chloride 10 mEq tablet,ER particles/crystals 10 meq PO DAILY PRN (Reason: takes with lasix) ketoconazole 2 % shampoo See Rx Instructions .ROUTE .COMPLEX PRN (Reason: SCALP IRRITATION) Rx Instructions: APPLY TOPICALLY TO THE AFFECTED AREA(S), LATHER, LEAVE FOR 5 MINUTES & THEN RINSE OFF ONCE DAILY. donepezil 10 mg tablet 10 mg PO DAILY triamcinolone acetonide 0.1 % cream 1 applic TOPICAL BID Changed carbidopa-levodopa 10-100 mg tablet 1 tab PO BID Qty: 60 0RF Discontinued chlorthalidone 25 mg tablet 25 mg PO QAM propranolol 80 mg capsule,extended release 24 hr 80 mg PO DAILY Discharge Orders: Discharge Order (Routine); Ordered 11/04/23 Ordered By: Wendie Jin Referrals: Bonnie Fleming FNP [Primary Care Provider] - 11/15/23 1:40 pm Jose Angel Kelsey MD [Physician] - 4-7 days Patient Instructions: Opioid Safety Discharge Attestations Time Spent in Discharge Care*: greater than 30 min Quality Metrics Clinical Quality Measures [ No reported AMI, CVA or VTE this stay] Coding Level of Care Code Acute Code for Chg Fwd Diagnoses Essential hypertension I10 Hypertension type: unspecified Elevated blood pressure reading R03.0 Atrial fibrillation, unspecified type I48.91 Atrial fibrillation type: unspecified Palpitation R00.2 Bradycardia R00.1 Lactic acidosis E87.20 UTI (urinary tract infection) N39.0 Sepsis A41.9 Sepsis acute organ dysfunction status: without acute organ dysfunction Sepsis type: sepsis due to unspecified organism Essential tremor G25.0 Generalized weakness R53.1
[2023-11-04 09:46] LABS: Reflex Lactate Order REFLEX LACTIC ORDERD
[2023-11-04 11:17] VITALS: BP 123/73; PULSE 76; RESP 16; TEMP 36.4; O2SAT 94
== END 2023-11-04 11:15 | disposition home or self-care (01) ==
LOC: ER 15:40 → MEDSURG 18:31
PROVIDERS: Admitting Provider Internal Medicine; Emergency Provider Emergency Medicine; PCP Nurse Practitioner Family; Visit Provider Internal Medicine
DX: A41.9 Sepsis, unspecified organism (principal); N39.0 Urinary tract infection, site not specified; I10 Essential (primary) hypertension; R03.0 Elevated blood-pressure reading, without diagnosis of hypertension; I48.91 Unspecified atrial fibrillation; R00.2 Palpitations; R00.1 Bradycardia, unspecified; E87.20 Acidosis, unspecified; G25.0 Essential tremor; R53.1 Weakness; Z66 Do not resuscitate
CPT/HCPCS: 36415; 70450; 71045; 80048; 80053; 81001; 82607; 83605; 83735; 83880; 84145; 84484; 85025; 86140; 87040; 87086; 93005; 96365; 97110; 97161; 99285; G0378; J0696; J7030

== ENCOUNTER 2023-11-06 23:33 | Emergency (ER) | payer MEDICARE, SELFPAY ==
--- NOTE | 2023-11-06 23:35 | XRR_ITS ---
PROCEDURE INFORMATION: Exam: XR Chest Exam date and time: 11/07/2023 12:10 AM Age: 78 years old Clinical indication: Angina; Additional info: Cp TECHNIQUE: Imaging protocol: Radiologic exam of the chest. Views: 1 view. COMPARISON: CR XR chest 1V portable [id number] 11/02/2023 11:46 AM FINDINGS: Tubes, catheters and devices: Unchanged precordial loop recorder. Lungs: Clear, symmetrically inflated lungs. Pleural spaces: No pleural effusion. No pneumothorax. Heart/Mediastinum: Cardiac silhouette is normal in size for technique. Bones/joints: Age appropriate. XR/XR chest 1V portable [id number] IMPRESSION: No acute cardiopulmonary abnormality.
--- NOTE | 2023-11-06 23:36 | ECG_ITS ---
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 Measurements Intervals [place] Rate: 90 P: 107 [place]: 130 QRS: 30 QRSD: 93 T: -8 QT: 347 QTc: 427 Interpretive Statements SINUS RHYTHM WITH SINUS ARRHYTHMIA LOW QRS VOLTAGE IN PRECORDIAL LEADS [QRS DEFLECTION < 1.0 mV IN CHEST LEADS] NONSPECIFIC T-WAVE ABNORMALITY Compared to ECG 11/02/2023 17:08:56 Low QRS voltage now present T-wave abnormality still present Electronically Signed On 11-07-2023 21:55:10 CDT by Mandie Montano M.D. [id number] f
[2023-11-06 23:43] VITALS: BP 149/87; PULSE 63; RESP 18; TEMP 36.1; O2SAT 93
[2023-11-07] VITALS (10 sets, daily range): BP systolic 117–136; BP diastolic 74–95; PULSE 69–84; RESP 11–25; O2SAT 91–97
--- NOTE | 2023-11-07 00:10 | ED_ITS ---
HPI - Chest Pain 2 General: Chief Complaint: Chest Pain Stated Complaint: BP high chest pressure Time Seen by Provider: 11/07/23 00:05 Source: patient Mode of arrival: ambulatory Limitations: no limitations History of Present Illness: 78-year-old female who states she been h aving sharp right-sided chest pain she states been going on for 2 weeks. She is recently admitted discharged on the and had a normal workup states that the pain and worsening nights very sharp in nature denies any radiation she denies any shortness of breath she denies any fevers. Associated symptoms: Deny abdominal pain, dyspnea, fever(s), nausea or vomiting Review of Systems 2 Const: Denies: fever(s), chills, body aches or change in appetite ENMT: Denies: throat pain or dental pain Card: Reports: chest pain Resp: Denies: dyspnea GI: Denies: abdominal pain, nausea, vomiting or diarrhea Musc: Denies: neck pain or back pain Skin/Breast: Denies: rash Neuro: Denies: headache(s) PFSH ED 2 PFSH: Medical History Generalized weakness Lactic acidosis Acute metabolic encephalopathy Sepsis Atrial fibrillation Urinary tract infection UTI (urinary tract infection) Bradycardia Elevated blood pressure reading Palpitation Essential tremor HTN (hypertension) Gout Dyslipidemia Melanoma Atrial fibrillation Surgical History Hx of cataract extraction History of cholecystectomy Status post laparoscopic cholecystectomy (03/30/20) History of removal of ovarian cyst History of carpal tunnel release S/P complete hysterectomy H/O esophagogastroduodenoscopy 1977 H/O colonoscopy 2016 Family History Mother Melanoma Diabetes Stroke Father CAD (coronary artery disease) unknown age of onset, SC at 62 Cancer Family/Other Cancer Grandmother Cancer Brother Diabetes Denies family history of Clotting disorder Dementia Chronic kidney disease (CKD) Suicide Anesthesia complication Bleeding disorder Lung disease Social History Smoking and tobacco/nicotine status: never used tobacco/nicotine Alcohol intake: never Substance/Drug Use: never Household members: spouse Marital status: Current occupational status: retired Physical Exam 2 Const: COMMON NORMALS: no acute distress, patient oriented x3 and healthy appearing HENMT: COMMON NORMALS: normocephalic and atraumatic HEAD & SCALP: n ormocephalic and atraumatic Eye: COMMON NORMALS: conjunctivae normal CONJUNCTIVA: Yes conjunctivae normal Neck/C-Spine: COMMON NORMALS: full ROM and supple Chest: COMMONS NORMALS: normal inspection of the chest OTHER: point tender over left chest reproduces her pain Resp: COMMON NORMALS: normal respiratory effort, No retractions, No use of accessory muscles and clear to auscultation bilaterally AUSCULTATION: clear to auscultation bilaterally Cardio: COMMON NORMALS: regular rate, regular rhythm and No murmurs present (Cardio) RATE: regular rate RHYTHM: regular rhythm Extremity: COMMON NORMALS: normal to inspection and full ROM Neuro: COMMON NORMALS: patient oriented x3, moves all extremities and no focal motor deficits Psych: COMMON NORMALS: mental status grossly normal, Normal thought process present and cooperative THOUGHT PROCESS: Normal thought process present Skin: COMMON NORMALS: no rashes or lesions noted and no wounds GENERAL SKIN EXAM: no rashes or lesions noted Course 2 Vital Signs: Vital signs: Vital Signs Temperature 97 F L 11/06/23 23:43 Pulse Rate 63 11/06/23 23:43 Respiratory Rate 21 H 11/07/23 02:43 Blood Pressure 149/87 11/06/23 23:43 Pulse Oximetry 93 11/06/23 23:43 MDM - Chest Pain Medical Decision Making Patient presents here with chest pains atypical in nature patient is point tender on right-sided chest that reproduces her pain troponins. Negative on the 2-hour troponin. CT chest is stable as well she feels improved she stable for discharge follow-up PCP return if worsening Medical Records I reviewed the patient's medical records. Lab Data I reviewed the patient's lab results. 11/07/23 01:41 11/07/23 01:41 Radiology Impressions Chest X-Ray 11/06/23 23:35 IMPRESSION: No acute cardiopulmonary abnormality. Chest CTA 11/07/23 00:13 IMPRESSION: 1. No findings of acute pulmonary embolism. No gross findings of aortic dissection. Clear lungs. 2. Small sliding hiatal hernia. Laboratory Results WBC 9.49 10^3/uL (3.29-11.43) 11/07/23 01:41 RBC 4.24 10^6/uL (3.85-5.65) 11/07/23 01:41 Hgb 13.20 g/dL (11.27-16.99) 11/07/23 01:41 Hct 41.5 % (36-47) 11/07/23 01:41 MCV 97.9 fl (85-98) 11/07/23 01:41 MCH 31.1 pg (27-33) 11/07/23 01:41 MCHC 31.8 g/dL (30-55) 11/07/23 01:41 RDW 13.6 % (12.1-15.1) 11/07/23 01:41 Plt Count 220 10^3/cmm (157-399) 11/07/23 01:41 MPV 11.2 fL (7.4-10.4) H 11/07/23 01:41 Neut % (Auto) 63.7 % 11/07/23 01:41 Lymph % (Auto) 21.8 % 11/07/23 01:41 [place] % (Auto) 11.1 % 11/07/23 01:41 Eos % (Auto) 2.4 % 11/07/23 01:41 Baso % (Auto) 0.8 % 11/07/23 01:41 Neut # (Auto) 6.04 10^3/uL (1.8-7.7) 11/07/23 01:41 Lymph # (Auto) 2.1 10^3/uL (0.8-4.8) 11/07/23 01:41 [place] # (Auto) 1.1 10^3/uL (0.2-0.9) H 11/07/23 01:41 Eos # (Auto) 0.2 10^3/uL (0.0-0.8) 11/07/23 01:41 Baso # (Auto) 0.1 10^3/uL (0.0-0.1) 11/07/23 01:41 Nucleated RBC % (auto) 0 % 11/07/23 01:41 Nucleated RBCs # 0.0 /100WBC 11/07/23 01:41 PT 16.30 SECONDS (12.1-14.9) H 11/07/23 01:41 INR 1.27 (0.8-1.2) H 11/07/23 01:41 Sodium 138 mmol/L (136-145) 11/07/23 01:41 Potassium 3.8 mmol/L (3.5-5.1) 11/07/23 01:41 Chloride 97 mmol/L (98-107) L 11/07/23 01:41 Carbon Dioxide 25 mmol/L (22-29) 11/07/23 01:41 Anion Gap 19.8 (5-19) H 11/07/23 01:41 BUN 16 mg/dL (8-23) 11/07/23 01:41 Creatinine 1.1 mg/dL (0.5-0.9) H 11/07/23 01:41 GFR Calculation Not Reportable 11/07/23 01:41 Glucose 160 mg/dL (65-115) H 11/07/23 01:41 Calculated Osmolality 291 mOsm/kg (285-295) 11/07/23 01:41 Calcium 9.6 mg/dL (8.5-10.5) 11/07/23 01:41 Total Bilirubin 0.3 mg/dL (0.15-1.2) 11/07/23 01:41 AST 35 U/L (0-32) H 11/07/23 01:41 ALT 10 U/L (0-33) 11/07/23 01:41 Alkaline Phosphatase 59 U/L (35-105) 11/07/23 01:41 Troponin T Baseline 20 ng/L (0-10) H 11/07/23 01:41 Troponin T 120 Minute 20.93 ng/L (0-10) H 11/07/23 03:43 Delta Troponin T 0.93 ABS# (0-10) 11/07/23 03:43 Total Protein 8.0 g/dL (6.6-8.7) 11/07/23 01:41 Albumin 4.0 g/dL (3.5-5.2) 11/07/23 01:41 Globulin 4.0 g/dL (1.3-4.6) 11/07/23 01:41 Lipase 32 U/L (13-60) 11/07/23 01:41 All radiology interpretation(s) finalized by discharge EKG Data EKG 1: I personally reviewed and interpreted this EKG as follows: EKG interpretation date: 11/06/23 EKG interpretation time: 23:52 Interpretation: nsr hr [address] elevation qrs 94 qtc 375 EKG 2: I personally reviewed and interpreted this EKG as follows: EKG interpretation date: 11/07/23 EKG interpretation time: 03:41 Interpretation: nsr hr [address] or t wave abnormalities qrs 85 qtc 418 Discharge Plan Discharge Patient Disposition: Home Clinical Impression: Chest pain Condition: Stable Prescriptions: No Action fluticasone propionate [Flonase Allergy Relief] 50 mcg/actuation spray,suspension 2 spray intranasal DAILY PRN (Reason: Allergy Symptoms) Rx Instructions: administer into each nostril Xarelto 20 mg tablet 20 mg PO DAILY Qty: 100 3RF Vascepa 1 gram capsule 1 g PO DAILY Qty: 90 3RF primidone 50 mg tablet 50 mg PO BEDTIME atorvastatin 20 mg tablet 20 mg PO BEDTIME isosorbide mononitrate 60 mg tablet extended release 24 hr 60 mg PO QAM allopurinol 300 mg tablet 300 mg PO DAILY PRN (Reason: gout) furosemide 20 mg tablet 20 mg PO DAILY PRN (Reason: Edema) irbesartan 150 mg tablet 150 mg PO QAM loratadine 10 mg tablet 10 mg PO DAILY PRN (Reason: Allergy Symptoms) potassium chloride 10 mEq tablet,ER particles/crystals 10 meq PO DAILY PRN (Reason: takes with lasix) ketoconazole 2 % shampoo See Rx Instructions .ROUTE .COMPLEX PRN (Reason: SCALP IRRITATION) Rx Instructions: APPLY TOPICALLY TO THE AFFECTED AREA(S), LATHER, LEAVE FOR 5 MINUTES & THEN RINSE OFF ONCE DAILY. donepezil 10 mg tablet 10 mg PO DAILY triamcinolone acetonide 0.1 % cream 1 applic TOPICAL BID levofloxacin 750 mg tablet 750 mg PO DAILY 7 Days Qty: 7 0RF carbidopa-levodopa 10-100 mg tablet 1 tab PO BID Qty: 60 0RF propranolol 20 mg tablet 20 mg PO .once daily Qty: 10 0RF Discharge Orders: Discharge ED (Routine); Ordered 11/07/23 Ordered By: Luann Zepeda Referrals: Bonnie Fleming FNP [Primary Care Provider] - 4-7 days Discharge Diet: Advance as tolerated Discharge Activity: Resume usual activity Patient Instructions: Chest Pain (ED) Coding Level of Care Code ED Botany Technician for Chg Jaz
--- NOTE | 2023-11-07 00:13 | CTR_ITS ---
PROCEDURE INFORMATION: Exam: CTA Chest With Contrast Exam date and time: 11/07/2023 1:55 AM Age: 78 years old Clinical indication: Angina; Additional info: Cp TECHNIQUE: Imaging protocol: Computed tomographic angiography of the chest with contrast. Exam focused on the arteries. 3D rendering (Not supervised by radiologist): MIP and/or 3D reconstructed images were created by the technologist. Radiation optimization: All CT scans at this facility use at least one of these dose optimization techniques: automated exposure control; mA and/or kV adjustment per patient size (includes targeted exams where dose is matched to clinical indication); or iterative reconstruction. Contrast material: OMNI 350; Contrast volume: 53 ml; Contrast route: INTRAVENOUS (IV); COMPARISON: CR (CHEST, ) 11/07/2023 12:10 AM RADIATION DOSE METRICS: Total DLP (mGy-cm): 426.9 FINDINGS: Tubes, catheters and devices: Precordial loop recorder is situated in the left anterior chest. Pulmonary arteries: Normal caliber. No pulmonary emboli. Aorta: Normal caliber thoracic aorta without gross evidence of dissection. There is insufficient contrast to exclude subtle dissection or penetrating ulcer. Thyroid: Homogeneous thyroid. Lungs: Clear normal lung parenchyma. Pleural spaces: No pneumothorax. No pleural effusion. Heart: No cardiomegaly. No pericardial effusion. Coronary arteries: Extensive coronary artery hyperdensity could be calcification and/or stent material. Lymph nodes: Non pathologically enlarged hilar and mediastinal lymph nodes are noted. Diaphragm: Small sliding hiatal hernia. Gallbladder and biliary ducts: Prior cholecystectomy. Bones/joints: Degenerative change noted throughout the thoracic spine with patent spinal canal. Soft tissues: Unremarkable. CT/CT angio chest PE protcl [id number] IMPRESSION: 1. No findings of acute pulmonary embolism. No gross findings of aortic dissection. Clear lungs. 2. Small sliding hiatal hernia.
[2023-11-07 01:48] LABS: Basophils # 0.1 10^3/uL (0.0-0.1); Basophils % 0.8 %; Eosinophils # 0.2 10^3/uL (0.0-0.8); Eosinophils % 2.4 %; Hematocrit 41.5 % (36-47); Lymphocytes # 2.1 10^3/uL (0.8-4.8); Lymphocytes % 21.8 %; Mean Corpuscular HGB Conc 31.8 g/dL (30-55); Mean Corpuscular Hemoglobin 31.1 pg (27-33); Mean Corpuscular Volume 97.9 fl (85-98); Mean Platelet Volume 11.2 fL (7.4-10.4); Monocytes # 1.1 10^3/uL (0.2-0.9); Monocytes % 11.1 %; Neutrophils # 6.04 10^3/uL (1.8-7.7); Neutrophils % 63.7 %; Nucleated Red Blood Cells % 0 %; Platelet Count 220 10^3/cmm (157-399); Red Blood Count 4.24 10^6/uL (3.85-5.65); Red Cell Distribution Width 13.6 % (12.1-15.1); White Blood Count 9.49 10^3/uL (3.29-11.43)
[2023-11-07] MEDS: iohexol 350 mg/mL 500 mL Btl (per mL) IV (02:04)
[2023-11-07 02:09] LABS: Troponin(5th) Baseline 20 ng/L (0-10)
[2023-11-07 02:10] LABS: Alanine Aminotransferase 10 U/L (0-33); Alkaline Phosphatase 59 U/L (35-105); Anion Gap 19.8 (5-19); Aspartate Amino Transferase 35 U/L (0-32); Blood Urea Nitrogen 16 mg/dL (8-23); Calcium 9.6 mg/dL (8.5-10.5); Carbon Dioxide 25 mmol/L (22-29); Chloride 97 mmol/L (98-107); Creatinine Clr Calc Pharmacy 45.6441; Glucose 160 mg/dL (65-115); Lipase 32 U/L (13-60); Osmolality Calculated 291 mOsm/kg (285-295); Potassium 3.8 mmol/L (3.5-5.1); Sodium 138 mmol/L (136-145); Total Bilirubin 0.3 mg/dL (0.15-1.2)
[2023-11-07 02:14] LABS: INR 1.27 (0.8-1.2)
[2023-11-07] MEDS: ondansetron 2 mg/ML SDV 2 mL 4 MG IVP (02:43)
[2023-11-07] MEDS: morphine 4 mg/mL SDV 1 mL IVP (02:43)
--- NOTE | 2023-11-07 03:41 | ECG_ITS ---
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 Measurements Intervals [place] Rate: 70 P: 72 [place]: 138 QRS: 57 QRSD: 85 T: 41 QT: 397 QTc: 430 Interpretive Statements SINUS RHYTHM NONSPECIFIC T-WAVE ABNORMALITY Compared to ECG 11/06/2023 23:36:57 Sinus arrhythmia no longer present T-wave abnormality still present Electronically Signed On 11-07-2023 22:11:03 CDT by Mandie Montano M.D. [id number]
[2023-11-07 04:15] LABS: Troponin 5 2HR 20.93 ng/L (0-10); Troponin 5 2HR Delta 0.93 ABS# (0-10)
--- NOTE | 2023-11-07 04:15 | PC.NURSE ---
PT PLACED ON 2L NC DUE TO DECREASED SPO2 WHEN SLEEPING.
== END 2023-11-07 04:52 | disposition home or self-care (01) ==
PROVIDERS: Emergency Provider Emergency Medicine; PCP Nurse Practitioner Family
DX: R07.9 Chest pain, unspecified (principal); I10 Essential (primary) hypertension; E78.5 Hyperlipidemia, unspecified
CPT/HCPCS: 71045; 71275; 80053; 83690; 84484; 85025; 85610; 93005; 96374; 96375; 99285; J2270; J2405; Q9967

== ENCOUNTER 2023-11-18 19:49 | Inpatient (IN) | payer MEDICARE, SELFPAY ==
[2023-11-18] VITALS (13 sets, daily range): BP systolic 114–205; BP diastolic 76–143; PULSE 81–152; RESP 14–25; TEMP 36.5; O2SAT 19–95; BMI 41.5
--- NOTE | 2023-11-18 19:48 | ECG_ITS ---
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 Measurements Intervals [place] Rate: 143 P: 0 AL: 0 QRS: 7 QRSD: 79 T: 18 QT: 246 QTc: 380 Interpretive Statements ATRIAL FIBRILLATION WITH RAPID VENTRICULAR RESPONSE POSSIBLE ANTERIOR MYOCARDIAL INFARCTION , PROBABLY OLD ABNORMAL RHYTHM ECG Compared to ECG 11/07/2023 03:41:14 Myocardial infarct finding now present Sinus rhythm no longer present Electronically Signed On 11-19-2023 13:28:07 CDT by Néstor Cordova M.D. [id number]
--- NOTE | 2023-11-18 20:07 | XRR_ITS ---
PROCEDURE INFORMATION: Exam: XR Chest Exam date and time: 11/18/2023 8:19 PM Age: 78 years old Clinical indication: Chest pressure; Prior surgery; Surgery date: 6+ months; Surgery type: Loop recorder. Gb. Patient HX: C/O chest pain. Hypertensive and tachy on monitor. TECHNIQUE: Imaging protocol: Radiologic exam of the chest. Views: 1 view. COMPARISON: CT angio chest PE protcl [id number] 11/07/2023 1:55 AM FINDINGS: Lungs: Left lower lobe atelectasis. Pleural spaces: Unremarkable. No pleural effusion. No pneumothorax. Heart/Mediastinum: Cardiomegaly. Bones/joints: Unremarkable. XR/XR chest 1V portable [id number] IMPRESSION: 1. Cardiomegaly. 2. Left lower lobe atelectasis.
[2023-11-18 20:33] LABS: Basophils # 0.1 10^3/uL (0.0-0.1); Basophils % 1.2 %; Eosinophils # 0.3 10^3/uL (0.0-0.8); Eosinophils % 3.3 %; Hematocrit 42.9 % (36-47); Lymphocytes # 2.1 10^3/uL (0.8-4.8); Mean Corpuscular HGB Conc 32.4 g/dL (30-55); Mean Corpuscular Volume 95.5 fl (85-98); Mean Platelet Volume 10.8 fL (7.4-10.4); Monocytes % 11.6 %; Neutrophils # 5.26 10^3/uL (1.8-7.7); Neutrophils % 59.6 %; Nucleated Red Blood Cells % 0 %; Platelet Count 215 10^3/cmm (157-399); Red Blood Count 4.49 10^6/uL (3.85-5.65); Red Cell Distribution Width 13.4 % (12.1-15.1); White Blood Count 8.83 10^3/uL (3.29-11.43)
[2023-11-18 20:49] LABS: Partial Thromboplastin Time 29.9 SECONDS (23.9-36.7)
[2023-11-18] MEDS: dilTIAZem 100 MG in sodium chloride 0.9% (add-van) 100 ML IV (20:53)
[2023-11-18] MEDS: dilTIAZem 5 mg/mL SDV 5 mL 20 MG IVP (20:53)
[2023-11-18 21:02] LABS: INR 1.29 (0.8-1.2)
[2023-11-18 21:06] LABS: Alanine Aminotransferase 20 U/L (0-33); Alkaline Phosphatase 60 U/L (35-105); Anion Gap 14.9 (5-19); Aspartate Amino Transferase 30 U/L (0-32); Blood Urea Nitrogen 11 mg/dL (8-23); Calcium 9.5 mg/dL (8.5-10.5); Carbon Dioxide 27 mmol/L (22-29); Chloride 100 mmol/L (98-107); Creatinine Clr Calc Pharmacy 62.7606; Glucose 162 mg/dL (65-115); NT Pro B Type Natriuretic Pept 155 pg/mL (0-450); Osmolality Calculated 289 mOsm/kg (285-295); Potassium 3.9 mmol/L (3.5-5.1); Sodium 138 mmol/L (136-145); Thyroid Stimulating Hormone 2.29 uIU/mL (0.27-4.20); Total Bilirubin 0.2 mg/dL (0.15-1.2)
[2023-11-18 21:28] LABS: Troponin(5th) Baseline 17 ng/L (0-10)
--- NOTE | 2023-11-18 22:08 | ECG_ITS ---
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 Measurements Intervals [place] Rate: 98 P: 0 [place]: 0 QRS: 14 QRSD: 81 T: 9 QT: 338 QTc: 432 Interpretive Statements ATRIAL FIBRILLATION LOW QRS VOLTAGE IN PRECORDIAL LEADS [QRS DEFLECTION < 1.0 mV IN CHEST LEADS] SEPTAL MYOCARDIAL INFARCTION , PROBABLY OLD [40+ ms Q WAVE IN V1/V2] Compared to ECG 11/18/2023 20:32:01 Low QRS voltage now present Myocardial infarct finding still present Electronically Signed On 11-19-2023 16:12:43 CDT by Néstor Cordova M.D. [id number]
--- NOTE | 2023-11-18 22:09 | ECG_ITS ---
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 Measurements Intervals [place] Rate: 132 P: 0 [place]: 0 QRS: 13 QRSD: 81 T: 24 QT: 292 QTc: 433 Interpretive Statements ATRIAL FIBRILLATION WITH RAPID VENTRICULAR RESPONSE ANTEROSEPTAL MYOCARDIAL INFARCTION , PROBABLY OLD [40+ ms Q WAVE IN V1-V4] Compared to ECG 11/18/2023 19:48:38 No significant changes Electronically Signed On 11-19-2023 16:13:14 CDT by Néstor Cordova M.D. [id number]
--- NOTE | 2023-11-18 22:10 | W.ED.CHESTPA ---
HPI - Chest Pain General: Chief Complaint: Chest Pain Stated Complaint: CP Time Seen by Provider: 11/18/23 20:11 History of Present Illness: 78-year-old female with a history of atrial fibrillation. she presents with chest discomfort and shortness of breath. She notes the chest discomfort is prior to chest near neck. It radiates to both arms. This began this evening, although she has noted that she has felt it on and off most of the day. It did not go away on its own. PFSH ED PFSH: Medical History Generalized weakness Lactic acidosis Acute metabolic encephalopathy Sepsis Atrial fibrillation Urinary tract infection UTI (urinary tract infection) Bradycardia Elevated blood pressure reading Palpitation Essential tremor HTN (hypertension) Gout Dyslipidemia Melanoma Atrial fibrillation Surgical History Hx of cataract extraction History of cholecystectomy Status post laparoscopic cholecystectomy (03/30/20) History of removal of ovarian cyst History of carpal tunnel release S/P complete hysterectomy H/O esophagogastroduodenoscopy 1977 H/O colonoscopy 2016 Family History Mother Melanoma Diabetes Stroke Father CAD (coronary artery disease) unknown age of onset, [place] at 62 Cancer Family/Other Cancer Grandmother Cancer Brother Diabetes Denies family history of Clotting disorder Dementia Chronic kidney disease (CKD) Suicide Anesthesia complication Bleeding disorder Lung disease Social History Smoking and tobacco/nicotine status: never used tobacco/nicotine Alcohol intake: never Substance/Drug Use: never Household members: spouse Marital status: Current occupational status: retired Physical Exam Const: COMMON NORMALS: no acute distress GENERAL APPEARANCE: cooperative and ill appearing; not frail appearing HENMT: COMMON NORMALS: normocephalic, atraumatic and Normal external nose present HEAD & SCALP: normocephalic and atraumatic FACE & SINUS: normal facial exam and face symmetric NOSE: Normal external nose present Eye: COMMON NORMALS: Equal, round and reactive pupils present and EOMs intact bilaterally PUPIL: Yes Equal, round and reactive pupils present Neck/C-Spine: GENERAL: Yes trachea midline Chest: CHEST: Yes Symmetrical chest wall rise Resp: COMMON NORMALS: normal respiratory effort, No retractions, No use of accessory muscles and clear to auscultation bilaterally AUSCULTATION: clear to auscultation bilaterally Cardio: RATE: tachycardic RHYTHM: abnormal rhythm irregularly irregular GI: COMMON NORMALS: Normal to inspection, nondistended, normoactive bowel sounds present Extremity: COMMON NORMALS: no pedal edema Neuro: ARIES COMA SCALE: document GCS findings Caret coma scale eye opening: Spontaneous Aries coma scale verbal response: Orientated Aries coma scale motor response: Obey commands Aries coma scale total score: 15 SENSORY EXAM: Yes extremities (intact) Psych: COMMON NORMALS: speech normal SPEECH: Yes normal speech Skin: COMMON NORMALS: no rashes or lesions noted GENERAL SKIN EXAM: no rashes or lesions noted Course Vital Signs: Vital signs: Vital Signs Temperature 98.5 F 11/19/23 00:41 Pulse Rate 116 H 11/19/23 00:41 Respiratory Rate 17 11/19/23 00:41 Blood Pressure 145/84 11/19/23 00:41 Pulse Oximetry 98 11/19/23 00:41 Oxygen Delivery Me thod Room Air 11/19/23 00:41 MDM - Chest Pain Medical Decision Making Heart rate in the 140s and 50s. A-fib with RVR. She is given diltiazem with improvement in her rate. She is requiring a drip currently for rate control. She does not appear to be on rate control medication. Other vitals been stable. CBC is normal. BMP is not remarkable. Chest x-ray shows left lower lobe atelectasis. TSH is normal. BNP is 155. Troponin is 17. Urinalysis is pending. She will require admission given diltiazem dependence at this point. Lab Data 11/19/23 02:36 11/19/23 02:36 Radiology Impressions Chest X-Ray 11/18/23 20:07 IMPRESSION: 1. Cardiomegaly. 2. Left lower lobe atelectasis. Laboratory Results WBC 8.83 10^3/uL (3.29-11.43) 11/18/23 20:28 RBC 4.49 10^6/uL (3.85-5.65) 11/18/23 20:28 Hgb 13.90 g/dL (11.27-16.99) 11/18/23 20:28 Hct 42.9 % (36-47) 11/18/23 20: MCV 95.5 fl (85-98) 11/18/23 20: MCH 31.0 pg (27-33) 11/18/23 20: MCHC 32.4 g/dL (30-55) 11/18/23 20: RDW 13.4 % (12.1-15.1) 11/18/23 20: Plt Count 215 10^3/cmm (157-399) 11/18/23 20: MPV 10.8 fL (7.4-10.4) H 11/18/23 20: Neut % (Auto) 59.6 % 11/18/23 20: Lymph % (Auto) 24.0 % 11/18/23: [place] % (Auto) 11.6 % 11/18/23: Eos % (Auto) 3.3 % 11/18/23 20: Baso % (Auto) 1.2 % 11/18/23: Neut # (Auto) 5.26 10^3/uL (1.8-7.7) 11/18/23 20: Lymph # (Auto) 2.1 10^3/uL (0.8-4.8) 11/18/23 20: [place] # (Auto) 1.0 10^3/uL (0.2-0.9) H 11/18/23 20: Eos # (Auto) 0.3 10^3/uL (0.0-0.8) 11/18/23 20: Baso # (Auto) 0.1 10^3/uL (0.0-0.1) 11/18/23 20: Nucleated RBC % (auto) 0 % 11/18/23: Nucleated RBCs # 0.0 /100WBC 11/18/23 20: PT 16.50 SECONDS (12.1-14.9) H 11/18/23 20: INR 1.29 (0.8-1.2) H 11/18/23 20: APTT 29.9 SECONDS (23.9-36.7) 11/18/23 20: Sodium 138 mmol/L (136-145) 11/18/23 20:28 Potassium 3.9 mmol/L (3.5-5.1) 11/18/23 20:28 Chloride 100 mmol/L (98-107) 11/18/23 20:28 Carbon Dioxide 27 mmol/L (22-29) 11/18/23 20:28 Anion Gap 14.9 (5-19) 11/18/23 20:28 BUN 11 mg/dL (8-23) 11/18/23 20:28 Creatinine 0.8 mg/dL (0.5-0.9) 11/18/23 20:28 GFR Calculation Not Reportable 11/18/23 20:28 Glucose 162 mg/dL (65-115) H 11/18/23 20:28 Calculated Osmolality 289 mOsm/kg (285-295) 11/18/23 20: Calcium 9.5 mg/dL (8.5-10.5) 11/18/23 20:28 Total Bilirubin 0.2 mg/dL (0.15-1.2) 11/18/23 20:28 AST 30 U/L (0-32) 11/18/23 20:28 ALT 20 U/L (0-33) 11/18/23 20:28 Alkaline Phosphatase 60 U/L (35-105) 11/18/23 20:28 Troponin T Baseline 17 ng/L (0-10) H 11/18/23 20:28 Troponin T 120 Minute 21.53 ng/L (0-10) H 11/18/23 22:28 Delta Troponin T 4.53 ABS# (0-10) 11/18/23 22:28 NT-Pro-B Natriuret Pep 155 pg/mL (0-450) 11/18/23 20:28 Total Protein 8.0 g/dL (6.6-8.7) 11/18/23 20: Albumin 4.0 g/dL (3.5-5.2) 11/18/23 20: Globulin 4.0 g/dL (1.3-4.6) 11/18/23 20:28 TSH 2.29 uIU/mL (0.27-4.20) 11/18/23 20:28 Urine Color Yellow (Yellow) 11/18/23 01:11 Urine Appearance Clear (CLEAR) 11/18/23 01:11 Urine pH 5 (5-7) 11/18/23 01:11 Ur Specific Christine 1.020 (1.005-1.030) 11/18/23 01:11 Urine Protein Neg (Negative) 11/18/23 01:11 Urine Glucose (UA) Norm (Normal) 11/18/23 01:11 Urine Ketones Negative (Negative) 11/18/23 01:11 Urine Blood Neg (Negative) 11/18/23 01:11 Urine Nitrate Negative (Negative) 11/18/23 01:11 Urine Bilirubin Neg (Negative) 11/18/23 01:11 Urine Urobilinogen Neg mg/dL (Negative) 11/18/23 01:11 Ur Leukocyte Esterase Negative (Negative) 11/18/23 01:11 All radiology interpretation(s) finalized by discharge Discharge Plan Discharge Patient Disposition: Admitted As Inpatient Admit Provider: Wendie Jin Clinical Impression: Chest pain, Atrial fibrillation with rapid ventricular response Condition: Stable Coding Level of Care Code ED Store Merchandiser for Hakeem Sebastian
[2023-11-18 22:53] LABS: Troponin 5 2HR 21.53 ng/L (0-10); Troponin 5 2HR Delta 4.53 ABS# (0-10)
--- NOTE | 2023-11-18 23:25 | P.HP_ITS ---
Providers/Chief Complaint 2 Primary Care Provider: CEDRIC Ayon Chief Complaint: CP History of Present Illness Kadi Pereira is a 73 year old female who was recently discharged from the hospital after management of UTI, her propranolol dose was decreased which she takes for tremors, she is also on carbidopa levodopa does not have official diagnosis of Parkinson's, please note she has a loop recorder she was following up with Dr. Montano and Dr. Bliss outpatient, no recent syncopal events or falls today presented with palpitations and chest discomfort. In the ER she was diagnosed with A-fib RVR, currently she is on Cardizem drip at 12.5 mg, takes Xarelto at home , No active chest pain shortness of breath Hemodynamically stable Patient stating that she is compliant with her medications. On last admission we decrease the dose of propranolol Review of Systems 2 Const: Denies: fever(s) Eyes: Denies: change in vision ENMT: Denies: throat pain Card: Reports: chest pain and palpitations Resp: Reports: dyspnea Medications/Allergies Home Medications Medication Instructions Recorded Confirmed Last Taken Type fluticasone propionate 50 2 spray intranasal DAILY PRN 09/15/21 11/19/23 Unknown History mcg/actuation nasal Allergy Symptoms spray,suspension (Flonase Allergy Relief) rivaroxaban 20 mg tablet (Xarelto) 20 mg PO DAILY #100 tabs 04/24/23 11/19/23 11/18/23 Rx allopurinol 300 mg tablet 300 mg PO DAILY PRN gout 07/29/23 11/19/23 10/15/23 History atorvastatin 20 mg tablet 20 mg PO BEDTIME 07/29/23 11/19/23 11/19/23 History irbesartan 150 mg tablet 150 mg PO QAM 07/29/23 11/19/23 11/18/23 History isosorbide mononitrate 60 mg 60 mg PO QAM 07/29/23 11/19/23 11/18/23 History tablet,extended release 24 hr loratadine 10 mg tablet 10 mg PO DAILY PRN Allergy Symptoms 07/29/23 11/19/23 11/12/23 History primidone 50 mg tablet 50 mg PO BEDTIME 07/29/23 11/02/23 11/17/23 History icosapent ethyl 1 gram capsule 1 g PO DAILY #90 caps 08/07/23 11/19/23 11/18/23 Rx (Vascepa) donepezil 10 mg tablet 10 mg PO DAILY 11/02/23 11/19/23 11/18/23 History ketoconazole 2 % shampoo See Rx Instructions .Route 11/02/23 11/19/23 11/17/23 History .COMPLEX PRN SCALP IRRITATION triamcinolone acetonide 0.1 % 1 applic topical BID 11/02/23 11/19/23 Unknown History topical cream carbidopa 10 mg-levodopa 100 mg 1 tab PO BID #60 tabs 11/04/23 11/19/23 11/18/23 Rx tablet propranolol 20 mg tablet 20 mg PO .once daily #10 tabs 11/04/23 11/19/23 11/18/23 Rx Allergies Allergy/AdvReac Type Severity Reaction Status Date / Time lisinopril Allergy coughing Verified 11/06/23 23:47 PFSH Acute 2 PFSH: Medical History Generalized weakness Lactic acidosis Acute metabolic encephalopathy Sepsis Atrial fibrillation Urinary tract infection UTI (urinary tract infection) Bradycardia Elevated blood pressure reading Palpitation Essential tremor HTN (hypertension) Gout Dyslipidemia Melanoma Atrial fibrillation Surgical History Hx of cataract extraction History of cholecystectomy Status post laparoscopic cholecystectomy (03/30/20) History of removal of ovarian cyst History of carpal tunnel release S/P complete hysterectomy H/O esophagogastroduodenoscopy 1977 H/O colonoscopy 2016 Family History Mother Melanoma Diabetes Stroke Father CAD (coronary artery disease) unknown age of onset, [place] at 62 Cancer Family/Other Cancer Grandmother Cancer Brother Diabetes Denies family history of Clotting disorder Dementia Chronic kidney disease (CKD) Suicide Anesthesia complication Bleeding disorder Lung disease Social History Smoking and tobacco/nicotine status: never used tobacco/nicotine Alcohol intake: never Substance/Drug Use: never Household members: spouse Marital status: Current occupational status: retired Vitals/I&O/Wt Last Vital Signs Temp 97.7 F 07/13/24 19:54 Pulse 107 H 11/18/23 20:55 Resp 20 H 11/18/23 20:55 BP 156/88 11/18/23 20:55 Pulse Ox 92 11/18/23 20:55 O2 Del Method Room Air 11/18/23 19:54 Weight last 48 hrs Weight 99.79 kg Physical Exam 2 Narrative: Awake and alert Euvolemic Uses 15 A-fib RVR Heart rate fluctuating between 06/07/1939 Cardizem drip running at 12.5 mg Abdomen none tender, distended Extremity nonpitting edema A-fib variable S1-S2 Currently on room air Nonfocal neuroexam Data 11/18/23 20:28 11/18/23 20:28 A&P Assessment and plan (1) Chest pain: (2) Atrial fibrillation with rapid ventricular response: Plan A-fib RVR Concern for tachybradycardia syndrome Has a loop recorder Start Cardizem p.o. regimen along Cardizem drip Continue Xarelto Check magnesium and potassium level No active chest pain at the time of evaluation Continue antihypertensive regimen I will prefer to wean her off propranolol for carbidopa levodopa she may resume she does not have diagnosis of Parkinson's but has resting essential tremors Full code Cardiac diet DVT prophylaxis covered with rivaroxaban Recently finished treatment for UTI no active symptoms Attestations 2 Medical Necessity Statement*: Anticipating more than 2 midnights for the management of A-fib RVR requiring Cardizem drip Diagnoses Chest pain R07.9 Atrial fibrillation with rapid ventricular response I48.91
[2023-11-19] VITALS (10 sets, daily range): BP systolic 91–156; BP diastolic 20–94; PULSE 95–117; RESP 17–24; TEMP 36.5–36.9; O2SAT 90–98; BMI 42.2
[2023-11-19] MEDS: dilTIAZem 30 mg Tablet PO ×4 (01:38→20:51)
--- NOTE | 2023-11-19 02:25 | ECG_ITS ---
[facility] Test Date: 2023-11-19 Pat Name: Kadi Hernandez Department: Room: 103 Gender: Female Quality Tester: : 1945 Requested By: Tor Zapata Order Number: [id number] Melendez MD: Néstor Cordova M.D. Measurements Intervals [place] Rate: 99 P: 0 [place]: 0 QRS: 69 QRSD: 82 T: 28 QT: 323 QTc: 415 Interpretive Statements ATRIAL FIBRILLATION NONSPECIFIC T-WAVE ABNORMALITY ABNORMAL RHYTHM ECG Compared to ECG 11/18/2023 21:46:21 T-wave abnormality now present Myocardial infarct finding no longer present Electronically Signed On 11-19-2023 16:10:09 CDT by Néstor Cordova M.D. [id number]
[2023-11-19 02:54] LABS: Basophils # 0.1 10^3/uL (0.0-0.1); Basophils % 1.2 %; Eosinophils # 0.3 10^3/uL (0.0-0.8); Hematocrit 45.6 % (36-47); Lymphocytes # 2.3 10^3/uL (0.8-4.8); Lymphocytes % 26.2 %; Mean Corpuscular HGB Conc 31.6 g/dL (30-55); Mean Corpuscular Hemoglobin 30.7 pg (27-33); Mean Corpuscular Volume 97.2 fl (85-98); Mean Platelet Volume 11.1 fL (7.4-10.4); Monocytes % 11.5 %; Neutrophils # 4.97 10^3/uL (1.8-7.7); Neutrophils % 57.9 %; Nucleated Red Blood Cells % 0 %; Platelet Count 220 10^3/cmm (157-399); Red Blood Count 4.69 10^6/uL (3.85-5.65); Red Cell Distribution Width 13.7 % (12.1-15.1); White Blood Count 8.59 10^3/uL (3.29-11.43)
[2023-11-19 03:06] LABS: Troponin 5 6HR 22.28 ng/L (0-10); Troponin 5 6HR Delta 5.28 ng/L (0-12)
[2023-11-19 03:08] LABS: Blood Urea Nitrogen 10 mg/dL (8-23); Calcium 9.1 mg/dL (8.5-10.5); Carbon Dioxide 20 mmol/L (22-29); Chloride 100 mmol/L (98-107); Creatinine Clr Calc Pharmacy 63.3315; Glucose 146 mg/dL (65-115); Osmolality Calculated 290 mOsm/kg (285-295); Phosphorus 3.5 mg/dL (2.5-4.5); Sodium 139 mmol/L (136-145)
[2023-11-19 03:13] LABS: Add Urine Microscopic? NO; Charge for UA Resulting for Rev
[2023-11-19 03:22] LABS: Bilirubin Urine Neg (Negative); Blood Urine Neg (Negative); Glucose Urine UA Norm (Normal); Ketones Urine Negative (Negative); Leukocyte Esterase Urine Negative (Negative); Nitrate Urine Negative (Negative); Protein Urine Neg (Negative); Urine Appearance Clear (CLEAR); Urine Color Yellow (Yellow); Urobilinogen Urine Neg (Negative); pH Urine 5 (5-7)
[2023-11-19] MEDS: dilTIAZem 100 MG in sodium chloride 0.9% (add-van) 100 ML 15 MG IV (04:45)
[2023-11-19] MEDS: isosorbide mononitrate ER 60 mg Tablet PO (06:00)
[2023-11-19] MEDS: rivaroxaban 10 mg Tablet 20 MG PO (08:39)
--- NOTE | 2023-11-19 12:47 | P.PN_ITS ---
Subjective 2 Subjective: Admitted overnight. Seen with son at bedside. Patient currently is on Cardizem of 10 with oral Cardizem 30 every 6. Heart rate at rest is running in high 90s going up to 110s. Patient denies any nausea, ting, headache or chest pain. Vitals/I&O/Wt Last Vital Signs Temp 97.7 F 11/19/23 11:48 Pulse 103 H 11/19/23 11:48 Resp 18 11/19/23 11:48 BP 106/75 11/19/23 11:48 Pulse Ox 90 11/19/23 11:48 O2 Del Method Room Air 11/19/23 11:48 11/18/23 11/19/23 11/19/23 22:59 06:59 14:59 Intake Total 489.208 / 489.208 218.250 / 218.250 Output Total 800 / 800 Balance -310.792 / -310.792 218.250 / 218.250 Weight last 48 hrs Weight 99.79 kg Weight 101.35 kg Weight 99.79 kg Weight 99.79 kg Physical Exam 2 Narrative: General: No acute distress, AO x3, tremors present HEENT: PERRLA, pupils bilaterally equal and reactive Chest: Normal vesicular breath sounds, no added sounds, equal good air entry bilaterally CVS: S1-S2 regular, no murmurs, no tachycardia, no gallops, no rubs Abdomen: Soft, nontender, no organomegaly, bowel sounds present Neuro: No focal deficits, no facial deformity, AO x3, power 5/5 in all limbs Data 11/19/23 02:36 11/19/23 02:36 A&P Assessment and plan (1) Atrial fibrillation with rapid ventricular response: Loop recorder in place. Concerns for tachybradycardia syndrome in the past. On recent admission propranolol dose was changed from 20 mg twice daily to 20 mg daily. Currently on Cardizem drip with heart rate running high. With concern for tachybradycardia syndrome for now we will switch over to IV amiodarone. Loop recorder interrogation. If any concerns of bradycardia will need to consult cardiology for possible pacemaker implantation while being on amiodarone. Recent echocardiogram back in July showed an EF of 60 to 65% with grade 2 diastolic function, trace MR, mild TR. Continue with home dose of Xarelto. (2) CAD (coronary artery disease): Appreciate recent A1c. Check lipid panel. Continue with home dose of statin, add aspirin 81 mg daily. Appreciate troponin cycle. Continue to monitor. Last Lexiscan stress test back in July was negative for acute ischemia. Qualifiers: Coronary Disease-Associated Artery/Lesion type: [place] artery [place] vs. transplanted heart: [place] heart Associated angina: without angina Qualified Code(s): I25.10 - Atherosclerotic heart disease of [place] coronary artery without angina pectoris (3) Essential tremor: At home patient is on carbidopa levodopa and propranolol. On recent discharge carbidopa levodopa was made twice daily and propranolol made daily. For now we will continue the same. (4) Chest pain: Plan CODE STATUS: Discussed in detail with the patient. Son will be the DPOA. Full code Cardiac diet Famotidine for PUD prophylaxis Xarelto will be for DVT prophylaxis. Attestations 2 Medical Necessity Statement*: Requires further hospitalization for management of A-fib with RVR in a patient with concerns for tachybradycardia syndrome, loop recorder in place Diagnoses Atrial fibrillation with rapid ventricular response I48.91 Coronary artery disease involving [place] coronary artery of [place] heart without angina pectoris I25.10 Coronary Disease-Associated Artery/Lesion type: [place] artery [place] vs. transplanted heart: [place] heart Associated angina: without angina Essential tremor G25.0 Chest pain R07.9
--- NOTE | 2023-11-19 15:38 | PC.NURSE ---
Provider is updated on patient heart rate that is still running in the 100-130 with occasional spikes to 146. Order is given to restart the PO cardizem 30mg PO Q6hr. Order placed.
--- NOTE | 2023-11-19 16:57 | PC.NURSE ---
Provider ordered a bolus of amiodarone 150mg IV now. Bolus started at 1655.
[2023-11-19] MEDS: famotidine 20 mg Tablet PO (19:00)
[2023-11-19] MEDS: atorvastatin 40 mg Tablet 20 MG PO (20:51)
[2023-11-20] VITALS (10 sets, daily range): BP systolic 116–142; BP diastolic 70–100; PULSE 98–140; RESP 14–23; TEMP 36.5–36.9; O2SAT 92–96
[2023-11-20] MEDS: dilTIAZem 30 mg Tablet PO ×2 (03:34→08:36)
[2023-11-20] MEDS: isosorbide mononitrate ER 60 mg Tablet PO (05:24)
[2023-11-20 07:29] LABS: Basophils # 0.1 10^3/uL (0.0-0.1); Basophils % 1.1 %; Eosinophils # 0.2 10^3/uL (0.0-0.8); Eosinophils % 2.7 %; Hematocrit 43.9 % (36-47); Lymphocytes # 1.9 10^3/uL (0.8-4.8); Lymphocytes % 25.9 %; Mean Corpuscular HGB Conc 30.5 g/dL (30-55); Mean Corpuscular Volume 101.6 fl (85-98); Mean Platelet Volume 11.1 fL (7.4-10.4); Monocytes # 0.8 10^3/uL (0.2-0.9); Monocytes % 10.4 %; Neutrophils # 4.37 10^3/uL (1.8-7.7); Neutrophils % 59.6 %; Nucleated Red Blood Cells % 0 %; Platelet Count 170 10^3/cmm (157-399); Red Blood Count 4.32 10^6/uL (3.85-5.65); Red Cell Distribution Width 13.5 % (12.1-15.1); White Blood Count 7.33 10^3/uL (3.29-11.43)
[2023-11-20 07:56] LABS: Alanine Aminotransferase 16 U/L (0-33); Albumin Level 3.5 g/dL (3.5-5.2); Alkaline Phosphatase 53 U/L (35-105); Anion Gap 19.8 (5-19); Aspartate Amino Transferase 23 U/L (0-32); Blood Urea Nitrogen 10 mg/dL (8-23); Calcium 8.9 mg/dL (8.5-10.5); Carbon Dioxide 23 mmol/L (22-29); Chloride 100 mmol/L (98-107); Chol HDL Ratio 4.47 mg/dL (0.0-4.40); Cholesterol 152 mg/dL (0-200); Creatinine Clr Calc Pharmacy 50.4992; Globulin 3.5 g/dL (1.3-4.6); Glucose 166 mg/dL (65-115); HDL Cholesterol 34 mg/dL (60-100); LDL Cholesterol Calculated 42 mg/dL (50-129); LDL HDL Ratio 1.24 RATIO (0.00-3.22); Osmolality Calculated 291 mOsm/kg (285-295); Potassium 3.8 mmol/L (3.5-5.1); Sodium 139 mmol/L (136-145); Total Bilirubin 0.3 mg/dL (0.15-1.2); Triglycerides 379 mg/dL (0-150)
[2023-11-20] MEDS: famotidine 20 mg Tablet PO ×2 (08:36→17:47)
[2023-11-20] MEDS: rivaroxaban 10 mg Tablet 20 MG PO (08:36)
[2023-11-20 11:32] LABS: Magnesium 1.5 mg/dL (1.7-2.3)
[2023-11-20] MEDS: acetaminophen 500 mg Tablet PO ×2 (14:14→20:53)
[2023-11-20] MEDS: dilTIAZem 60 mg Tablet PO ×2 (14:38→22:12)
[2023-11-20] MEDS: atorvastatin 40 mg Tablet 20 MG PO (20:48)
--- NOTE | 2023-11-20 22:41 | P.PN_ITS ---
Subjective 2 Subjective: This morning she states she is doing all right, although with worsened tachycardia has been having some chest tightness. Vitals/I&O/Wt Last Vital Signs Temp 98.5 F 11/20/23 20:00 Pulse 118 H 11/20/23 22:00 Resp 23 H 11/20/23 20:00 BP 142/82 11/20/23 20:00 Pulse Ox 94 11/20/23 20:00 O2 Del Method Room Air 11/20/23 20:00 11/20/23 11/20/23 11/20/23 06:59 14:59 22:59 Intake Total 100 / 894.124 858.095 / 858.095 Output Total 360 / 360 Balance 100 / 894.124 858.095 / 858.095 -360 / 498.095 Weight last 48 hrs Weight 100.783 kg Weight 99.79 kg Weight 101.35 kg Weight 99.79 kg Physical Exam 2 Narrative: Accompanied by family. Const: COMMON NORMALS: patient oriented x3 and alert GENERAL APPEARANCE: c ooperative ORIENTATION/CONSCIOUSNESS: Yes awake HENMT: COMMON NORMALS: oropharynx normal Neck/C-Spine: COMMON NORMALS: no JVD Resp: COMMON NORMALS: normal respiratory effort and clear to auscultation bilaterally AUSCULTATION: clear to auscultation bilaterally Cardio: COMMON NORMALS: no JVD, S1 normal heart sound present, S2 normal heart sound present and No murmurs present (Cardio) RATE: tachycardic RHYTHM: a bnormal rhythm irregularly irregular HEART SOUNDS: S1 normal heart sound present and S2 normal heart sound present GI: COMMON NORMALS: Normal to inspection, nondistended, normoactive bowel sounds present, Soft to palpation and non-tender PALPATION: Yes Soft to palpation Extremity: COMMON NORMALS: no joint enlargement GENERAL: Yes edema (trace) Neuro: COMMON NORMALS: patient oriented x3 and moves all extremities S ENSORIUM/ORIENTATION: Yes alert Skin: COMMON NORMALS: no rashes or lesions noted GENERAL SKIN EXAM: no rashes or lesions noted Data 11/20/23 07:05 11/20/23 07:05 A&P Assessment and plan (1) Atrial fibrillation with rapid ventricular response: Worsening of A-fib with RVR to severe today, with some chest tightness as well. On amiodarone drip. Increased dose of Cardizem 60 mg every 8 hours. Monitor for risk of hypotension with Cardizem. Heart rates with improvements to 100 and teens. Continue amnio drip. Reviewed vitals, CBC, potassium, requested magnesium. Replace hypomagnesemia. Loop recorder in place. Interrogation obtained. Concerns for tachybradycardia syndrome in the past. On recent admission propranolol dose was changed from 20 mg twice daily to 20 mg daily. With concern for tachybradycardia syndrome for now we will switch over to IV amiodarone. Loop recorder interrogation. If any concerns of bradycardia will need to consult cardiology for possible pacemaker implantation while being on amiodarone. Recent echocardiogram back in July showed an EF of 60 to 65% with grade 2 diastolic function, trace MR, mild TR. Continue with home dose of Xarelto. (2) CAD (coronary artery disease): Appreciate recent A1c. Continue statin.Reviewed lipid profile. Continue with home dose of statin, add aspirin 81 mg daily. Appreciate troponin cycle. Last Lexiscan stress test back in July was negative for acute ischemia. Qualifiers: Coronary Disease-Associated Artery/Lesion type: [place] artery [place] vs. transplanted heart: [place] heart Associated angina: without angina Qualified Code(s): I25.10 - Atherosclerotic heart disease of [place] coronary artery without angina pectoris (3) Essential tremor: At home patient is on carbidopa levodopa and propranolol. Was not continued on propranolol. Currently on diltiazem, discussed risk of hypotension with combination, hold off on restarting propranolol for now. On recent discharge carbidopa levodopa was made twice daily and propranolol made daily. (4) Chest pain: Plan CODE STATUS: Son will be the DPOA. Full code Cardiac diet Famotidine for PUD prophylaxis Xarelto will be for DVT prophylaxis. Attestations 2 Medical Necessity Statement*: Continue admission for optimization of control of symptomatic A-fib with RVR Diagnoses Atrial fibrillation with rapid ventricular response I48.91 Coronary artery disease involving [place] coronary artery of [place] heart without angina pectoris I25.10 Coronary Disease-Associated Artery/Lesion type: [place] artery [place] vs. transplanted heart: [place] heart Associated angina: without angina Essential tremor G25.0 Chest pain R07.9
[2023-11-21] VITALS (9 sets, daily range): BP systolic 121–165; BP diastolic 37–109; PULSE 98–131; RESP 16–28; TEMP 36.5–36.8; O2SAT 93–97; BMI 41.8
[2023-11-21] MEDS: magnesium sulfate premix 2 GM/50 ML PIGGYBACK IV (01:10)
[2023-11-21] MEDS: isosorbide mononitrate ER 60 mg Tablet PO (06:03)
[2023-11-21] MEDS: dilTIAZem 60 mg Tablet PO ×3 (06:03→21:45)
[2023-11-21 07:23] LABS: Basophils # 0.1 10^3/uL (0.0-0.1); Eosinophils # 0.2 10^3/uL (0.0-0.8); Hematocrit 41.2 % (36-47); Lymphocytes # 1.9 10^3/uL (0.8-4.8); Lymphocytes % 26.1 %; Mean Corpuscular HGB Conc 31.6 g/dL (30-55); Mean Corpuscular Hemoglobin 30.7 pg (27-33); Mean Corpuscular Volume 97.2 fl (85-98); Mean Platelet Volume 11.8 fL (7.4-10.4); Monocytes # 0.9 10^3/uL (0.2-0.9); Monocytes % 12.2 %; Neutrophils # 4.21 10^3/uL (1.8-7.7); Neutrophils % 57.6 %; Nucleated Red Blood Cells % 0 %; Platelet Count 211 10^3/cmm (157-399); Red Blood Count 4.24 10^6/uL (3.85-5.65); Red Cell Distribution Width 13.6 % (12.1-15.1); White Blood Count 7.31 10^3/uL (3.29-11.43)
[2023-11-21 07:45] LABS: Anion Gap 23.6 (5-19); Blood Urea Nitrogen 11 mg/dL (8-23); Calcium 8.9 mg/dL (8.5-10.5); Carbon Dioxide 22 mmol/L (22-29); Chloride 98 mmol/L (98-107); Creatinine Clr Calc Pharmacy 50.3581; Glucose 152 mg/dL (65-115); Osmolality Calculated 292 mOsm/kg (285-295); Potassium 3.6 mmol/L (3.5-5.1); Sodium 140 mmol/L (136-145)
[2023-11-21] MEDS: rivaroxaban 10 mg Tablet 20 MG PO (08:10)
[2023-11-21] MEDS: acetaminophen 500 mg Tablet PO ×2 (08:10→12:24)
[2023-11-21] MEDS: famotidine 20 mg Tablet PO ×2 (08:10→17:47)
[2023-11-21] MEDS: FUROsemide 20 mg Tablet PO (12:25)
--- NOTE | 2023-11-21 16:56 | PC.NURSE ---
patient up ambulating in the [place] with portable telemetry in place. Heart rate 120s to 140s with exertion. Patient back to bed with heart rate 90s to 120s. Patient denies any symptoms and no distress observed. Will continue to monitor..
--- NOTE | 2023-11-21 21:29 | P.PN_ITS ---
Subjective 2 Subjective: Today she is feeling slightly better. Heart rate overall with improvement at least at rest, but during walking in the afternoon did come up to 120s/130s. At rest down to 95-107. Vitals/I&O/Wt Last Vital Signs Temp 98.3 F 11/21/23 20:00 Pulse 131 H 11/21/23 20:00 Resp 22 H 11/21/23 20:00 BP 165/109 11/21/23 20:00 Pulse Ox 95 11/21/23 20:00 O2 Del Method Room Air 11/21/23 20:00 11/21/23 11/21/23 11/21/23 06:59 14:59 22:59 Intake Total 550 / 1408.095 920 / 920 480 / 1400 Balance 550 / 1048.095 920 / 920 480 / 1400 Weight last 48 hrs Weight 102.376 kg Weight 100.301 kg Weight 100.783 kg Physical Exam 2 Narrative: Accompanied by family. Const: COMMON NORMALS: patient oriented x3 and alert GENERAL APPEARANCE: c ooperative ORIENTATION/CONSCIOUSNESS: Yes awake HENMT: COMMON NORMALS: oropharynx normal Neck/C-Spine: COMMON NORMALS: no JVD Resp: COMMON NORMALS: normal respiratory effort and clear to auscultation bilaterally AUSCULTATION: clear to auscultation bilaterally Cardio: COMMON NORMALS: no JVD, S1 normal heart sound present, S2 normal heart sound present and No murmurs present (Cardio) RATE: tachycardic RHYTHM: a bnormal rhythm irregularly irregular HEART SOUNDS: S1 normal heart sound present and S2 normal heart sound present GI: COMMON NORMALS: Normal to inspection, nondistended, normoactive bowel sounds present, Soft to palpation and non-tender PALPATION: Yes Soft to palpation Extremity: COMMON NORMALS: no joint enlargement GENERAL: Yes edema (trace) Neuro: COMMON NORMALS: patient oriented x3 and moves all extremities S ENSORIUM/ORIENTATION: Yes alert Skin: COMMON NORMALS: no rashes or lesions noted GENERAL SKIN EXAM: no rashes or lesions noted Data 11/21/23 04:31 11/21/23 04:31 A&P Assessment and plan (1) Atrial fibrillation with rapid ventricular response: Very slow improvement, but gradually heart rate is downtrending, this morning remaining 95-107 at least at rest. With exertion still with some rising heart rates as expected. Continue amiodarone drip. Oral Cardizem. If continuing to improve switch to oral amio. This evening up to 130s after getting up to the bathroom. Will hold off on switching to oral amiodarone for now. Reviewed potassium and magnesium. Magnesium has been replaced. Doing better. Will give additional 20 mill colons potassium. Target potassium 4. Recheck potassium, magnesium. Reviewed vitals, CBC, afebrile, no leukocytosis, no suggestion of ongoing infection. Discussed with patient case coordinator. With history of fluid overload, recurrent edema, has developed some worsening edema started on low-dose Lasix that she takes at home. Worsening of A-fib with RVR to severe today, with some chest tightness as well. On amiodarone drip. Increased dose of Cardizem 60 mg every 8 hours. Monitor for risk of hypotension with Cardizem. Heart rates with improvements to 100 and teens. Continue amnio drip. Reviewed vitals, CBC, potassium, requested magnesium. Replace hypomagnesemia. Loop recorder in place. Interrogation obtained. Concerns for tachybradycardia syndrome in the past. On recent admission propranolol dose was changed from 20 mg twice daily to 20 mg daily. With concern for tachybradycardia syndrome for now we will switch over to IV amiodarone. Loop recorder interrogation. If any concerns of bradycardia will need to consult cardiology for possible pacemaker implantation while being on amiodarone. Recent echocardiogram back in July showed an EF of 60 to 65% with grade 2 diastolic function, trace MR, mild TR. Continue with home dose of Xarelto. (2) CAD (coronary artery disease): Appreciate recent A1c. Continue statin. Reviewed lipid profile. Continue with home dose of statin, add aspirin 81 mg daily. Appreciate troponin cycle. Last Lexiscan stress test back in July was negative for acute ischemia. Qualifiers: Coronary Disease-Associated Artery/Lesion type: [place] artery [place] vs. transplanted heart: [place] heart Associated angina: without angina Qualified Code(s): I25.10 - Atherosclerotic heart disease of [place] coronary artery without angina pectoris (3) Essential tremor: At home patient is on carbidopa levodopa and propranolol. Was not continued on propranolol. Currently on diltiazem, discussed risk of hypotension with combination, hold off on restarting propranolol for now. On recent discharge carbidopa levodopa was made twice daily and propranolol made daily. (4) Chest pain: Plan Headache: Has been having some aches. With some response to aspirin but with recurrence. Noted to have some blood pressure fluctuation, possibly contributing. This may give extra dose of Tylenol if needed. Avoid NSAIDs. CODE STATUS: Son will be the DPOA. Full code Cardiac diet Famotidine for PUD prophylaxis Xarelto will be for DVT prophylaxis. Attestations 2 Medical Necessity Statement*: Continue admission for optimization of control of symptomatic A-fib with RVR and High MDM includes amount and/or complexity of data reviewed/ordered [ resulted lab(s)/test(s), ordered lab(s)/test(s) and other healthcare professional discussion] as documented Diagnoses Atrial fibrillation with rapid ventricular response I48.91 Coronary artery disease involving [place] coronary artery of [place] heart without angina pectoris I25.10 Coronary Disease-Associated Artery/Lesion type: [place] artery [place] vs. transplanted heart: [place] heart Associated angina: without angina Essential tremor G25.0 Chest pain R07.9
[2023-11-21] MEDS: atorvastatin 40 mg Tablet 20 MG PO (21:45)
[2023-11-22] VITALS (8 sets, daily range): BP systolic 115–137; BP diastolic 58–82; PULSE 74–195; RESP 15–25; TEMP 36.4–36.8; O2SAT 90–97
[2023-11-22 03:04] LABS: Basophils # 0.1 10^3/uL (0.0-0.1); Basophils % 0.9 %; Eosinophils # 0.2 10^3/uL (0.0-0.8); Eosinophils % 2.7 %; Hematocrit 39.6 % (36-47); Lymphocytes # 1.8 10^3/uL (0.8-4.8); Lymphocytes % 23.4 %; Mean Corpuscular HGB Conc 32.1 g/dL (30-55); Mean Corpuscular Volume 96.6 fl (85-98); Mean Platelet Volume 11.1 fL (7.4-10.4); Monocytes # 0.9 10^3/uL (0.2-0.9); Monocytes % 11.8 %; Neutrophils # 4.68 10^3/uL (1.8-7.7); Neutrophils % 60.9 %; Nucleated Red Blood Cells % 0 %; Platelet Count 200 10^3/cmm (157-399); Red Cell Distribution Width 13.6 % (12.1-15.1); White Blood Count 7.69 10^3/uL (3.29-11.43)
[2023-11-22 03:35] LABS: Anion Gap 18.8 (5-19); Blood Urea Nitrogen 11 mg/dL (8-23); Carbon Dioxide 25 mmol/L (22-29); Chloride 102 mmol/L (98-107); Creatinine Clr Calc Pharmacy 46.3323; Glucose 163 mg/dL (65-115); Magnesium 1.8 mg/dL (1.7-2.3); Osmolality Calculated 297 mOsm/kg (285-295); Potassium 3.8 mmol/L (3.5-5.1); Sodium 142 mmol/L (136-145)
[2023-11-22] MEDS: dilTIAZem 60 mg Tablet PO ×2 (05:39→15:24)
[2023-11-22] MEDS: isosorbide mononitrate ER 60 mg Tablet PO (05:39)
[2023-11-22] MEDS: FUROsemide 20 mg Tablet PO (08:57)
[2023-11-22] MEDS: rivaroxaban 10 mg Tablet 20 MG PO (08:57)
[2023-11-22] MEDS: famotidine 20 mg Tablet PO ×2 (08:57→18:28)
--- NOTE | 2023-11-22 09:58 | PC.SOCIAL ---
IMM Update pg 2 of IMM updated and reviewed w/ patient. Copy provided and copy dated, initialed and placed in chart.
[2023-11-22] MEDS: amiodarone 200 mg Tablet PO ×3 (10:22→20:08)
[2023-11-22] MEDS: acetaminophen 500 mg Tablet PO (15:37)
--- NOTE | 2023-11-22 17:39 | P.CONIM_ITS ---
Providers/Reason For Consult 2 Consulting Physician/Specialty*: ANGELI Montano MD/cardiology Reason for Consult*: Patient with atrial fibrillation rapid regular rate, chest pain Requesting Physician: ANGELI Montano MD/cardiology Attending Physician: Fer Chowdhury Primary Care Provider: CEDRIC Ayon History of Present Illness History of Present Illness Kadi Hernandez is a 78 year old female with a history of chronic intermittent atrial fibrillation, on long-term oral anticoagulation, present to the hospital with complaints of palpitation and chest pain. She was found to be in atrial fibrillation with rapid ventricular rate. Her heart rate was in the 150s. She was initially started on IV Cardizem. Apparently the heart rate remained uncontrolled. Subsequently she was started on IV amiodarone. She had 1 g of IV amiodarone infusion completed yesterday. She is currently on amiodarone 200 mg p.o. twice daily. Her IV Cardizem was switched to p.o. Cardizem 60 mg p.o. every 8 hours. Her heart rate occasionally goes down to the 90s but most of the times it stays in the 120s and 130s. Especially when she gets up and move around, the heart rate goes up into the 130s. She has no unusual dizziness or passing out spells. Her chest pain is in the right upper part of the chest and sometimes radiate to the neck. It is a sharp pain lasting for few seconds to a minute or so and then goes away by itself. She has been having this type of chest symptoms , whenever the heart rate goes into the 140s and 150s. In July of this year, she was admitted to the hospital with dizziness/near syncopal episodes. She was found to have a heart rate in the 30s occasionally on the telemetry of the implantable quality assurance monitor body. The dose of the propranolol was cut back to 20 mg p.o. twice daily at that time. She was admitted to the hospital last month with features of urosepsis. She was treated with antibiotics and other symptomatic measures. She was discharged home with propranolol 20 mg p.o. daily. The exact reasons are not known. So she is admitted to hospital this time with the atrial fibrillation rapid ventricular rate. Patient had the implantable quality assurance monitor body in 2020. She had several episodes of bradycardia in the beginning. Lately the bradycardia episodes are very few. She had a Myocardial perfusion imaging in 2020 and also in July of this year. Both times, there is no evidence of ischemia. She never had a cardiac catheterization. This patient is known to have high blood pressure, dyslipidemia, essential benign tremor, gouty arthritis, obesity and? Reactive airway disease. She denies any fever, chills or cough. No abdominal pain or dysuria. No other specific complaints. The patient has been on propranolol for a long time. She was started on it for essential tremor. Her tremor gets worse when she stopped this medication. Review of Systems 2 Narrative: CONSTITUTIONAL: No fever or chills. EYES: No blurring of vision or other visual disturbances lately. ENT: No hoarseness of voice, auditory disturbances or sore throat. CARDIOVASCULAR: As mentioned above. RESPIRATORY:? Reactive airway disease GASTROINTESTINAL: No hematemesis or melena. GENITOURINARY: No dysuria or hematuria. INTEGUMENTARY: No skin rashes or history of skin cancer. NEURO: Resting tremor of the upper extremities and head and neck region PSYCHIATRIC: No history of psychosis or major depression. HEMATOLOGIC: On long-term oral anticoagulation with Xarelto ENDOCRINE: No history of polyuria or polydipsia. MUSCULOSKELETAL: No recent joint pain or swelling. ALLERGY/IMMUNOLOGY: As mentioned above. Medications/Allergies Home Medications Medication Instructions Recorded Confirmed Last Taken Type fluticasone propionate 50 2 spray intranasal DAILY PRN 09/15/21 11/19/23 Unknown History mcg/actuation nasal Allergy Symptoms spray,suspension (Flonase Allergy Relief) rivaroxaban 20 mg tablet (Xarelto) 20 mg PO DAILY #100 tabs 04/24/23 11/19/23 11/18/23 Rx allopurinol 300 mg tablet 300 mg PO DAILY PRN gout 07/29/23 11/19/23 10/15/23 History atorvastatin 20 mg tablet 20 mg PO BEDTIME 07/29/23 11/19/23 11/19/23 History irbesartan 150 mg tablet 150 mg PO QAM 07/29/23 11/19/23 11/18/23 History isosorbide mononitrate 60 mg 60 mg PO QAM 07/29/23 11/19/23 11/18/23 History tablet,extended release 24 hr loratadine 10 mg tablet 10 mg PO DAILY PRN Allergy Symptoms 07/29/23 11/19/23 11/12/23 History primidone 50 mg tablet 50 mg PO BEDTIME 07/29/23 11/19/23 11/17/23 History icosapent ethyl 1 gram capsule 1 g PO DAILY #90 caps 08/07/23 11/19/23 11/18/23 Rx (Vascepa) donepezil 10 mg tablet 10 mg PO DAILY 11/02/23 11/19/23 11/18/23 History ketoconazole 2 % shampoo See Rx Instructions .Route 11/02/23 11/19/23 11/17/23 History .COMPLEX PRN SCALP IRRITATION triamcinolone acetonide 0.1 % 1 applic topical BID 11/02/23 11/19/23 Unknown History topical cream carbidopa 10 mg-levodopa 100 mg 1 tab PO BID #60 tabs 11/04/23 11/19/23 11/18/23 Rx tablet propranolol 20 mg tablet 20 mg PO .once daily #10 tabs 11/04/23 11/19/23 11/18/23 Rx Allergies Allergy/AdvReac Type Severity Reaction Status Date / Time lisinopril Allergy coughing Verified 11/06/23 23:47 Current Medications Generic Name Dose Route Start Last Admin Trade Name Freq PRN Reason Stop Dose Admin Acetaminophen 500 mg 11/19/23 00:36 11/22/23 15:37 Acetaminophen 500 Mg Tablet PO 500 mg Q4H PRN Administration fever Amiodarone HCl 200 mg 11/22/23 10:00 11/22/23 10:22 Amiodarone 200 Mg Tablet PO 200 mg BID JACQUI Administration Atorvastatin Calcium 20 mg 11/19/23 21:00 11/21/23 21:45 Atorvastatin 40 Mg Tablet PO 20 mg BEDTIME JACQUI Administration Carbidopa/Levodopa 1 each 11/19/23 09:00 11/22/23 08:57 Carbidopa-Levodopa 10-100 Mg Tablet PO 1 each BID JACQUI Administration Diltiazem HCl 60 mg 11/20/23 14:15 11/22/23 15:24 Diltiazem 60 Mg Tablet PO 60 mg Q8H JACQUI Administration Famotidine 20 mg 11/19/23 18:00 11/22/23 08:57 Famotidine 20 Mg Tablet PO 20 mg BID JACQUI Administration Furosemide 20 mg 11/21/23 12:05 11/22/23 08:57 Furosemide 20 Mg Tablet PO 20 mg DAILY@0800 JACQUI Administration Isosorbide Mononitrate 60 mg 11/19/23 06:00 11/22/23 05:39 Isosorbide Mononitrate Er 60 Mg Tablet PO 60 mg QAM JACQUI Administration Rivaroxaban 20 mg 11/19/23 09:00 11/22/23 08:57 Rivaroxaban 10 Mg Tablet PO 20 mg DAILY JACQUI Administration Senna/Docusate Sodium 1 tab 11/19/23 09:00 11/22/23 08:57 Sennosides-Docusate Tablet PO Not Given DAILY JACQUI PFSH Acute 2 PFSH: Medical History Essential tremor Generalized weakness Lactic acidosis Acute metabolic encephalopathy Sepsis Atrial fibrillation Urinary tract infection UTI (urinary tract infection) Bradycardia Elevated blood pressure reading Palpitation HTN (hypertension) Gout Dyslipidemia Melanoma Atrial fibrillation Surgical History Hx of cataract extraction History of cholecystectomy Status post laparoscopic cholecystectomy (03/30/20) History of removal of ovarian cyst History of carpal tunnel release S/P complete hysterectomy H/O esophagogastroduodenoscopy 1977 H/O colonoscopy 2016 Family History Mother Melanoma Diabetes Stroke Father CAD (coronary artery disease) unknown age of onset, [place] at 62 Cancer Family/Other Cancer Grandmother Cancer Brother Diabetes Denies family history of Clotting disorder Dementia Chronic kidney disease (CKD) Suicide Anesthesia complication Bleeding disorder Lung disease Social History Smoking and tobacco/nicotine status: never used tobacco/nicotine Alcohol intake: never Substance/Drug Use: never Household members: spouse Marital status: Current occupational status: retired Vitals/I&O/Wt Last Vital Signs Temp 97.6 F 11/22/23 16:00 Pulse 100 11/22/23 16:00 Resp 25 H 11/22/23 16:00 BP 137/76 11/22/23 16:00 Pulse Ox 92 11/22/23 16:00 O2 Del Method Room Air 11/22/23 16:00 11/22/23 11/22/23 11/22/23 06:59 14:59 22:59 Intake Total 200 / 2000 920 / 920 Balance 1999 920 / 920 Weight last 48 hrs Weight 225 lb Weight 225 lb 11.2 oz Weight 221 lb 2 oz Physical Exam 2 Narrative: GENERAL: The patient is alert and oriented times three. Not in any acute distress. HEENT: No significant pallor, icterus or lymphadenopathy.Oral cavity: There are no mucous membrane lesions. NECK: Trachea appears to be central. No masses noted. No JVD or thyromegaly appreciated. RESPIRATORY: Chest is symmetrical. No intercostals muscle retraction or any accessory muscle activation. There is no chest wall tenderness. Breath sounds are heard bilaterally. No rales or rhonchi heard. No evidence of any consolidation. BREASTS: Deferred. HEART: The heart sounds are normal. No S3 or S4. Short systolic murmur the left sternal border. No diastolic murmurs.. No pericardial rub ABDOMEN: No vessel pulsations or distention. No tenderness. No organomegaly appreciated. Bowel sounds are normally heard. : Deferred. RECTAL: Deferred. LYMPHATIC: No lymphadenopathy noted in the neck. EXTREMITIES: No edema or cyanosis. No clubbing. MUSCULOSKELETAL: No acute joint deformities or swelling SKIN: There are no significant rashes or ecchymosis NEUROPSYCHIATRIC: The patient is alert and oriented x3. Appears to be in a good mood. No tremors or rigidity noted. Data 11/22/23 02:52 11/22/23 02:52 Other Labs: Laboratory Last Values WBC 7.69 10^3/uL (3.29-11.43) 11/22/23 02:52 RBC 4.10 10^6/uL (3.85-5.65) 11/22/23 02:52 Hgb 12.70 g/dL (11.27-16.99) 11/22/23 02:52 Hct 39.6 % (36-47) 11/22/23 02:52 MCV 96.6 fl (85-98) 11/22/23 02:52 MCH 31.0 pg (27-33) 11/22/23 02:52 MCHC 32.1 g/dL (30-55) 11/22/23 02:52 RDW 13.6 % (12.1-15.1) 11/22/23 02:52 Plt Count 200 10^3/cmm (157-399) 11/22/23 02:52 MPV 11.1 fL (7.4-10.4) H 11/22/23 02:52 Neut % (Auto) 60.9 % 11/22/23 02:52 Lymph % (Auto) 23.4 % 11/22/23 02:52 [place] % (Auto) 11.8 % 11/22/23 02:52 Eos % (Auto) 2.7 % 11/22/23 02:52 Baso % (Auto) 0.9 % 11/22/23 02:52 Neut # (Auto) 4.68 10^3/uL (1.8-7.7) 11/22/23 02:52 Lymph # (Auto) 1.8 10^3/uL (0.8-4.8) 11/22/23 02:52 [place] # (Auto) 0.9 10^3/uL (0.2-0.9) 11/22/23 02:52 Eos # (Auto) 0.2 10^3/uL (0.0-0.8) 11/22/23 02:52 Baso # (Auto) 0.1 10^3/uL (0.0-0.1) 11/22/23 02:52 Nucleated RBC % (auto) 0 % 11/22/23 02:52 Nucleated RBCs # 0.0 /100WBC 11/22/23 02:52 PT 16.50 SECONDS (12.1-14.9) H 11/18/23 20:28 INR 1.29 (0.8-1.2) H 11/18/23 20:28 APTT 29.9 SECONDS (23.9-36.7) 11/18/23 20:28 Sodium 142 mmol/L (136-145) 11/22/23 02:52 Potassium 3.8 mmol/L (3.5-5.1) 11/22/23 02:52 Chloride 102 mmol/L (98-107) 11/22/23 02:52 Carbon Dioxide 25 mmol/L (22-29) 11/22/23 02:52 Anion Gap 18.8 (5-19) 11/22/23 02:52 BUN 11 mg/dL (8-23) 11/22/23 02:52 Creatinine 1.1 mg/dL (0.5-0.9) H 11/22/23 02:52 GFR Calculation Not Reportable 11/22/23 02:52 Glucose 163 mg/dL (65-115) H 11/22/23 02:52 Calculated Osmolality 297 mOsm/kg (285-295) H 11/22/23 02:52 Calcium 9.0 mg/dL (8.5-10.5) 11/22/23 02:52 Phosphorus 3.0 mg/dL (2.5-4.5) 11/20/23 07:05 Magnesium 1.8 mg/dL (1.7-2.3) 11/22/23 02:52 Total Bilirubin 0.3 mg/dL (0.15-1.2) 11/20/23 07:05 AST 23 U/L (0-32) 11/20/23 07:05 ALT 16 U/L (0-33) 11/20/23 07:05 Alkaline Phosphatase 53 U/L (35-105) 11/20/23 07:05 Troponin T Baseline 17 ng/L (0-10) H 11/18/23 20:28 Troponin T 120 Minute 21.53 ng/L (0-10) H 11/18/23 22:28 Delta Troponin T 4.53 ABS# (0-10) 11/18/23 22:28 Troponin T Hi Sens 6Hr 22.28 ng/L (0-10) H 11/19/23 02:36 Troponin T Hi Sens 6Hr Delta 5.28 ng/L (0-12) 11/19/23 02:36 NT-Pro-B Natriuret Pep 155 pg/mL (0-450) 11/18/23 20:28 Total Protein 7.0 g/dL (6.6-8.7) 11/20/23 07:05 Albumin 3.5 g/dL (3.5-5.2) 11/20/23 07:05 Globulin 3.5 g/dL (1.3-4.6) 11/20/23 07:05 Triglycerides 379 mg/dL (0-150) H 11/20/23 07:05 Cholesterol 152 mg/dL (0-200) 11/20/23 07:05 LDL Cholesterol, Calc 42 mg/dL (50-129) L 11/20/23 07:05 HDL Cholesterol 34 mg/dL (60-100) L 11/20/23 07:05 LDL/HDL Ratio 1.24 RATIO (0.00-3.22) 11/20/23 07:05 Cholesterol/HDL Ratio 4.47 mg/dL (0.0-4.40) H 11/20/23 07:05 TSH 2.29 uIU/mL (0.27-4.20) 11/18/23 20:28 Urine Color Yellow (Yellow) 11/18/23 01:11 Urine Appearance Clear (CLEAR) 11/18/23 01:11 Urine pH 5 (5-7) 11/18/23 01:11 Ur Specific [place] 1.020 (1.005-1.030) 11/18/23 01:11 Urine Protein Neg (Negative) 11/18/23 01:11 Urine Glucose (UA) Norm (Normal) 11/18/23 01:11 Urine Ketones Negative (Negative) 11/18/23 01:11 Urine Blood Neg (Negative) 11/18/23 01:11 Urine Nitrate Negative (Negative) 11/18/23 01:11 Urine Bilirubin Neg (Negative) 11/18/23 01:11 Urine Urobilinogen Neg mg/dL (Negative) 11/18/23 01:11 Ur Leukocyte Esterase Negative (Negative) 11/18/23 01:11 Other data: Echocardiogram in July 2023 Technically limited quality echocardiogram because of poor ultrasonic windows. LV systolic function is normal with EF of 60 to 65%. Grade 2 diastolic dysfunction Trace mitral regurgitation. Mild tricuspid regurgitation. Compared to prior echocardigoram from 2020, no significant changes are seen. Myocardial perfusion imaging in July 2023 echnically limited quality echocardiogram because of poor ultrasonic windows. LV systolic function is normal with EF of 60 to 65%. Grade 2 diastolic dysfunction Trace mitral regurgitation. Mild tricuspid regurgitation. Compared to prior echocardigoram from 2020, no significant changes are seen. A&P Assessment and plan (1) Atrial fibrillation with rapid ventricular response: Patient need to be on a tapering dose of amiodarone. I would give amiodarone 4 mg p.o. twice daily for 10 days followed by 400 mg daily for a week followed by 200 mg daily. I also may start her on propranolol 10 mg p.o. 3 times daily. I would discontinue the diltiazem. (2) Hypertriglyceridemia: May continue on the current medications. (3) Chest pain: Patient had a 2 Myocardial perfusion imaging so far and where found to be negative for ischemia. Limitations of the studies were discussed with the patient. If she continues to have neck pain, need to consider a cardiac catheterization to evaluate the coronary status and decide on further management. Qualifiers: Chest pain type: unspecified Qualified Code(s): R07.9 - Chest pain, unspecified (4) Benign hypertension: The antihypertensive medications need to be optimized. (5) Essential tremor: Restarting the propranolol may help with the symptoms. Need to consider medications if she is becoming symptomatic. Plan Based on the clinical progress, further recommendations will be made. Thank you for the opportunity to eval this patient make these recommendations Coding Level of Care Code 03087 Diagnoses Atrial fibrillation with rapid ventricular response I48.91 Hypertriglyceridemia E78.1 Chest pain, unspecified type R07.9 Chest pain type: unspecified Benign hypertension I10 Essential tremor G25.0 Time Spent (min) 70
--- NOTE | 2023-11-22 18:29 | PM.PN ---
Subjective Subjective: She reports she is doing well. No chest pain or pressure. No trouble breathing. Tachycardia has been gradually improving and has been staying 95-105 at rest. However, subsequently with finding of tachycardia worsening each time she gets up or exerts herself. Vitals/I&O/Wt Last Vital Signs Temp 97.6 F 11/22/23 16:00 Pulse 100 11/22/23 16:00 Resp 25 H 11/22/23 16:00 BP 137/76 11/22/23 16:00 Pulse Ox 92 11/22/23 16:00 O2 Del Method Room Air 11/22/23 16:00 11/22/23 11/22/23 11/22/23 06:59 14:59 22:59 Intake Total 200 1999 920 / 920 Balance 200 1999 920 / 920 Weight last 48 hrs Weight 102.058 kg Weight 102.376 kg Weight 100.301 kg Physical Exam Narrative: Accompanied by family. Const: COMMON NORMALS: patient oriented x3 and alert GENERAL APPEARANCE: cooperative ORIENTATION/CONSCIOUSNESS: Yes awake HENMT: COMMON NORMALS: oropharynx normal Neck/C-Spine: COMMON NORMALS: no JVD Resp: COMMON NORMALS: normal respiratory effort and clear to auscultation bilaterally AUSCULTATION: clear to auscultation bilaterally Cardio: COMMON NORMALS: no JVD, S1 normal heart sound present, S2 normal heart sound present and No murmurs present (Cardio) RATE: tachycardic RHYTHM: abnormal rhythm irregularly irregular HEART SOUNDS: S1 normal heart sound present and S2 normal heart sound present GI: COMMON NORMALS: Normal to inspection, nondistended, normoactive bowel sounds present, Soft to palpation and non-tender PALPATION: Yes Soft to palpation Extremity: COMMON NORMALS: no joint enlargement GENERAL: Yes edema (trace) Neuro: COMMON NORMALS: patient oriented x3 and moves all extremities SENSORIUM/ORIENTATION: Yes alert Skin: COMMON NORMALS: no rashes or lesions noted GENERAL SKIN EXAM: no rashes or lesions noted Data 11/22/23 02:52 11/22/23 02:52 A&P Assessment and plan (1) Atrial fibrillation with rapid ventricular response: She tells me that she is feeling well, has not had any chest tightness, and has been doing well at least at rest. Heart rates have improved down to 95-105, however, noted that anytime she gets up to get around or exert herself heart rate started coming up to 130s. Continue monitoring with transition to oral amiodarone. With risk of bradycardia with tachy-lalo. Persistent difficult to treat AFib w RVR, risk of cardiac and hemodynamic decompensation. Initial consideration for discharge home today with transition to oral amiodarone, however, given recurrent episodes of tachycardia with exertion and up into 130s discussed with cardiology, appreciate consultation regarding recurrent tachycardia and advised on any additional measures that may help her with control. Continue amiodarone, Cardizem at current time. Potassium, magnesium, will give additional small dose potassium, magnesium supplementation. Recheck levels. Additionally we have been getting unable to find a report from order interrogation, neither 1 from Monday or yesterday, discussed with nursing staff, additional interrogation performed today. As discussed with cardiology additional concern for possible tachybradycardia syndrome Discussed with nursing, case aide. With history of fluid overload, recurrent edema, has developed some worsening edema started on low-dose Lasix that she takes at home. Persistent A-fib with RVR to severe today, with some chest tightness as well. Concerns for tachybradycardia syndrome in the past. On recent admission propranolol dose was changed from 20 mg twice daily to 20 mg daily. Recent echocardiogram back in July showed an EF of 60 to 65% with grade 2 diastolic function, trace MR, mild TR. Continue with home dose of Xarelto. (2) CAD (coronary artery disease): Appreciate recent A1c. Continue statin. Continue with home dose of statin, aspirin 81 mg daily. Appreciate troponin cycle. Last Lexiscan stress test back in July was negative for acute ischemia. Qualifiers: Coronary Disease-Associated Artery/Lesion type: [place] artery [place] vs. transplanted heart: [place] heart Associated angina: without angina Qualified Code(s): I25.10 - Atherosclerotic heart disease of [place] coronary artery without angina pectoris (3) Essential tremor: At home patient is on carbidopa levodopa and propranolol. Was not continued on propranolol. Currently on diltiazem, discussed risk of hypotension with combination, hold off on restarting propranolol for now. On recent discharge carbidopa levodopa was made twice daily and propranolol made daily. (4) Chest pain: Plan Headache: Has been having some aches. With some response to aspirin but with recurrence. Noted to have some blood pressure fluctuation, possibly contributing. This may give extra dose of Tylenol if needed. Avoid NSAIDs. Stop IV morphine CODE STATUS: Son will be the DPOA. Full code Cardiac diet Famotidine for PUD prophylaxis Xarelto will be for DVT prophylaxis. Attestations Medical Necessity Statement*: Continue admission for optimization of control of persistent difficult to treat A-fib with RVR Diagnoses Atrial fibrillation with rapid ventricular response I48.91 Coronary artery disease involving [place] coronary artery of [place] heart without angina pectoris I25.10 Coronary Disease-Associated Artery/Lesion type: [place] artery [place] vs. transplanted heart: [place] heart Associated angina: without angina Essential tremor G25.0 Chest pain R07.9
[2023-11-22] MEDS: magnesium sulfate premix 1 GM/100 ML PIGGYBACK IV (19:16)
[2023-11-22] MEDS: potassium chloride ER 20 mEq Tablet PO (19:16)
[2023-11-22] MEDS: atorvastatin 40 mg Tablet 20 MG PO (21:19)
[2023-11-22] MEDS: propranolol 20 mg Tablet 10 MG PO (21:19)
[2023-11-23] VITALS (9 sets, daily range): BP systolic 104–124; BP diastolic 58–95; PULSE 83–98; RESP 12–22; TEMP 36.6; O2SAT 90–94; BMI 42.5
[2023-11-23 04:58] LABS: Basophils # 0.1 10^3/uL (0.0-0.1); Basophils % 0.8 %; Eosinophils # 0.3 10^3/uL (0.0-0.8); Eosinophils % 3.7 %; Hematocrit 42.6 % (36-47); Lymphocytes # 1.9 10^3/uL (0.8-4.8); Lymphocytes % 24.7 %; Mean Corpuscular HGB Conc 31.5 g/dL (30-55); Mean Corpuscular Hemoglobin 30.8 pg (27-33); Mean Corpuscular Volume 97.9 fl (85-98); Mean Platelet Volume 11.2 fL (7.4-10.4); Monocytes # 0.9 10^3/uL (0.2-0.9); Monocytes % 12.2 %; Neutrophils # 4.39 10^3/uL (1.8-7.7); Neutrophils % 58.3 %; Nucleated Red Blood Cells % 0 %; Platelet Count 240 10^3/cmm (157-399); Red Blood Count 4.35 10^6/uL (3.85-5.65); Red Cell Distribution Width 13.5 % (12.1-15.1); White Blood Count 7.53 10^3/uL (3.29-11.43)
[2023-11-23] MEDS: isosorbide mononitrate ER 60 mg Tablet PO (05:12)
[2023-11-23 05:20] LABS: Anion Gap 18.2 (5-19); Blood Urea Nitrogen 11 mg/dL (8-23); Carbon Dioxide 27 mmol/L (22-29); Chloride 102 mmol/L (98-107); Creatinine Clr Calc Pharmacy 46.2477; Glucose 166 mg/dL (65-115); Osmolality Calculated 299 mOsm/kg (285-295); Potassium 4.2 mmol/L (3.5-5.1); Sodium 143 mmol/L (136-145)
[2023-11-23] MEDS: famotidine 20 mg Tablet PO ×2 (08:40→17:47)
[2023-11-23] MEDS: propranolol 20 mg Tablet 10 MG PO ×3 (08:40→21:20)
[2023-11-23] MEDS: rivaroxaban 10 mg Tablet 20 MG PO (08:40)
[2023-11-23] MEDS: sennosides-docusate Tablet 1 TAB PO (08:41)
[2023-11-23] MEDS: FUROsemide 20 mg Tablet PO (08:41)
[2023-11-23] MEDS: amiodarone 200 mg Tablet 400 MG PO ×2 (08:41→17:47)
--- NOTE | 2023-11-23 16:35 | P.PN_ITS ---
Subjective 2 Subjective: Patient was started on amiodarone 400 mg p.o. twice daily and propranolol 10 mg p.o. 3 times daily yesterday. The heart rate seems to be slowly improving. The heart rate jumps up to 130s and 140s as she gets up and move around, even though the resting heart rate is in the 80s and 90s most of the times. She has no fever or chills. Medications: Medication Review Details: Current Medications Acetaminophen (Acetaminophen 500 Mg Tablet) 500 mg PO Q4H PRN PRN Reason: fever Last Admin: 11/22/23 15:37 Dose: 500 mg Albuterol/Ipratropium (Ipratropium-Albuterol 3 Ml Neb) 3 ml INHALATION Q6H PRN PRN Reason: SHORTNESS OF BREATH Allopurinol (Allopurinol 300 Mg Tablet) 300 mg PO DAILY PRN PRN Reason: gout Amiodarone HCl (Amiodarone 200 Mg Tablet) 400 mg PO BID [facility] Last Admin: 11/23/23 08:41 Dose: 400 mg Atorvastatin Calcium (Atorvastatin 40 Mg Tablet) 20 mg PO BEDTIME [facility] Last Admin: 11/22/23 21:19 Dose: 20 mg Bisacodyl (Bisacodyl 5 Mg Tablet) 10 mg PO DAILY PRN; Protocol PRN Reason: Constipation (see protocol) Carbidopa/Levodopa (Carbidopa-Levodopa 10-100 Mg Tablet) 1 each PO BID [facility] Last Admin: 11/23/23 08:41 Dose: 1 each Famotidine (Famotidine 20 Mg Tablet) 20 mg PO BID [facility] Last Admin: 11/23/23 08:40 Dose: 20 mg Furosemide (Furosemide 20 Mg Tablet) 20 mg PO DAILY@0800 [facility] Last Admin: 11/23/23 08:41 Dose: 20 mg Isosorbide Mononitrate (Isosorbide Mononitrate Er 60 Mg Tablet) 60 mg PO QAM [facility] Last Admin: 11/23/23 05:12 Dose: 60 mg Lactulose (Lactulose Oral Liq 20 Gm/30 Ml Udc) 10 gm PO DAILY PRN; Protocol PRN Reason: Constipation (see protocol) Magnesium Hydroxide (Magnesium Hydroxide 30 Ml Udc) 30 ml PO DAILY PRN; Protocol PRN Reason: Constipation (see protocol) Ondansetron HCl (Ondansetron 2 Mg/Ml Sdv 2 Ml) 4 mg IVP Q6H PRN PRN Reason: NAUSEA AND VOMITING Propranolol HCl (Propranolol 20 Mg Tablet) 10 mg PO TID [facility] Last Admin: 11/23/23 08:40 Dose: 10 mg Rivaroxaban (Rivaroxaban 10 Mg Tablet) 20 mg PO DAILY [facility] Last Admin: 11/23/23 08:40 Dose: 20 mg Senna/Docusate Sodium (Sennosides-Docusate Tablet) 1 tab PO DAILY [facility] Last Admin: 11/23/23 08:41 Dose: 1 tab Vitals/I&O/Wt Last Vital Signs Temp 97.9 F 11/23/23 07:26 Pulse 98 11/23/23 12:00 Resp 12 11/23/23 12:00 BP 124/95 11/23/23 12:00 Pulse Ox 90 11/23/23 12:00 O2 Del Method Room Air 11/23/23 12:00 11/23/23 11/23/23 11/23/23 06:59 14:59 22:59 Intake Total 720 / 720 Balance 720 / 720 Weight last 48 hrs Weight 225 lb Weight 225 lb Physical Exam 2 Narrative: GENERAL: The patient is alert and oriented times three. Not in any acute distress. HEENT: No significant pallor, icterus or lymphadenopathy.Oral cavity: There are no mucous membrane lesions. NECK: Trachea appears to be central. No masses noted. No JVD or thyromegaly appreciated. RESPIRATORY: Chest is symmetrical. No intercostals muscle retraction or any accessory muscle activation. There is no chest wall tenderness. Breath sounds are heard bilaterally. No rales or rhonchi heard. No evidence of any consolidation. BREASTS: Deferred. HEART: The heart sounds are normal. No S3 or S4. Short systolic murmur the left sternal border. No diastolic murmurs.. No pericardial rub ABDOMEN: No vessel pulsations or distention. No tenderness. No organomegaly appreciated. Bowel sounds are normally heard. : Deferred. RECTAL: Deferred. LYMPHATIC: No lymphadenopathy noted in the neck. EXTREMITIES: No edema or cyanosis. No clubbing. MUSCULOSKELETAL: No acute joint deformities or swelling SKIN: There are no significant rashes or ecchymosis NEUROPSYCHIATRIC: The patient is alert and oriented x3. Appears to be in a good mood. No tremors or rigidity noted. Data 11/23/23 04:35 11/23/23 04:35 Other Labs: Laboratory Last Values WBC 7.53 10^3/uL (3.29-11.43) 11/23/23 04:35 RBC 4.35 10^6/uL (3.85-5.65) 11/23/23 04:35 Hgb 13.40 g/dL (11.27-16.99) 11/23/23 04:35 Hct 42.6 % (36-47) 11/23/23 04:35 MCV 97.9 fl (85-98) 11/23/23 04:35 MCH 30.8 pg (27-33) 11/23/23 04:35 MCHC 31.5 g/dL (30-55) 11/23/23 04:35 RDW 13.5 % (12.1-15.1) 11/23/23 04:35 Plt Count 240 10^3/cmm (157-399) 11/23/23 04:35 MPV 11.2 fL (7.4-10.4) H 11/23/23 04:35 Neut % (Auto) 58.3 % 11/23/23 04:35 Lymph % (Auto) 24.7 % 11/23/23 04:35 [place] % (Auto) 12.2 % 11/23/23 04:35 Eos % (Auto) 3.7 % 11/23/23 04:35 Baso % (Auto) 0.8 % 11/23/23 04:35 Neut # (Auto) 4.39 10^3/uL (1.8-7.7) 11/23/23 04:35 Lymph # (Auto) 1.9 10^3/uL (0.8-4.8) 11/23/23 04:35 [place] # (Auto) 0.9 10^3/uL (0.2-0.9) 11/23/23 04:35 Eos # (Auto) 0.3 10^3/uL (0.0-0.8) 11/23/23 04:35 Baso # (Auto) 0.1 10^3/uL (0.0-0.1) 11/23/23 04:35 Nucleated RBC % (auto) 0 % 11/23/23 04:35 Nucleated RBCs # 0.0 /100WBC 11/23/23 04:35 PT 16.50 SECONDS (12.1-14.9) H 11/18/23 20:28 INR 1.29 (0.8-1.2) H 11/18/23 20:28 APTT 29.9 SECONDS (23.9-36.7) 11/18/23 20:28 Sodium 143 mmol/L (136-145) 11/23/23 04:35 Potassium 4.2 mmol/L (3.5-5.1) 11/23/23 04:35 Chloride 102 mmol/L (98-107) 11/23/23 04:35 Carbon Dioxide 27 mmol/L (22-29) 11/23/23 04:35 Anion Gap 18.2 (5-19) 11/23/23 04:35 BUN 11 mg/dL (8-23) 11/23/23 04:35 Creatinine 1.1 mg/dL (0.5-0.9) H 11/23/23 04:35 GFR Calculation Not Reportable 11/23/23 04:35 Glucose 166 mg/dL (65-115) H 11/23/23 04:35 Calculated Osmolality 299 mOsm/kg (285-295) H 11/23/23 04:35 Calcium 9.0 mg/dL (8.5-10.5) 11/23/23 04:35 Phosphorus 3.0 mg/dL (2.5-4.5) 11/20/23 07:05 Magnesium 2.0 mg/dL (1.7-2.3) 11/23/23 04:35 Total Bilirubin 0.3 mg/dL (0.15-1.2) 11/20/23 07:05 AST 23 U/L (0-32) 11/20/23 07:05 ALT 16 U/L (0-33) 11/20/23 07:05 Alkaline Phosphatase 53 U/L (35-105) 11/20/23 07:05 Troponin T Baseline 17 ng/L (0-10) H 11/18/23 20:28 Troponin T 120 Minute 21.53 ng/L (0-10) H 11/18/23 22:28 Delta Troponin T 4.53 ABS# (0-10) 11/18/23 22:28 Troponin T Hi Sens 6Hr 22.28 ng/L (0-10) H 11/19/23 02:36 Troponin T Hi Sens 6Hr Delta 5.28 ng/L (0-12) 11/19/23 02:36 NT-Pro-B Natriuret Pep 155 pg/mL (0-450) 11/18/23 20:28 Total Protein 7.0 g/dL (6.6-8.7) 11/20/23 07:05 Albumin 3.5 g/dL (3.5-5.2) 11/20/23 07:05 Globulin 3.5 g/dL (1.3-4.6) 11/20/23 07:05 Triglycerides 379 mg/dL (0-150) H 11/20/23 07:05 Cholesterol 152 mg/dL (0-200) 11/20/23 07:05 LDL Cholesterol, Calc 42 mg/dL (50-129) L 11/20/23 07:05 HDL Cholesterol 34 mg/dL (60-100) L 11/20/23 07:05 LDL/HDL Ratio 1.24 RATIO (0.00-3.22) 11/20/23 07:05 Cholesterol/HDL Ratio 4.47 mg/dL (0.0-4.40) H 11/20/23 07:05 TSH 2.29 uIU/mL (0.27-4.20) 11/18/23 20:28 Urine Color Yellow (Yellow) 11/18/23 01:11 Urine Appearance Clear (CLEAR) 11/18/23 01:11 Urine pH 5 (5-7) 11/18/23 01:11 Ur Specific [place] 1.020 (1.005-1.030) 11/18/23 01:11 Urine Protein Neg (Negative) 11/18/23 01:11 Urine Glucose (UA) Norm (Normal) 11/18/23 01:11 Urine Ketones Negative (Negative) 11/18/23 01:11 Urine Blood Neg (Negative) 11/18/23 01:11 Urine Nitrate Negative (Negative) 11/18/23 01:11 Urine Bilirubin Neg (Negative) 11/18/23 01:11 Urine Urobilinogen Neg mg/dL (Negative) 11/18/23 01:11 Ur Leukocyte Esterase Negative (Negative) 11/18/23 01:11 A&P Assessment and plan (1) Atrial fibrillation with rapid ventricular response: Patient is on amiodarone 400 mg p.o. twice daily and propranolol 10 mg p.o. 3 times daily. This dose may be continued. May need to consider cardioversion, if the rate still remains uncontrolled tomorrow (2) Hypertriglyceridemia: May continue on the current medications. (3) Chest pain: Patient had a 2 Myocardial perfusion imaging so far and were found to be negative for ischemia. Limitations of the studies were discussed with the patient. If she continues to have neck pain, need to consider a cardiac catheterization to evaluate the coronary status and decide on further management. Has not had a recurrence of chest pain or neck pain. Qualifiers: Chest pain type: unspecified Qualified Code(s): R07.9 - Chest pain, unspecified (4) Benign hypertension: The blood pressure seems to be remaining under control. (5) Essential tremor: The higher dose of propranolol seems to be helping the tremor as well Plan Continue on the above medications. Possible discharge home tomorrow Attestations 2 Medical Necessity Statement*: Deferred to the primary Coding Level of Care Code 40438 Diagnoses Atrial fibrillation with rapid ventricular response I48.91 Hypertriglyceridemia E78.1 Chest pain, unspecified type R07.9 Chest pain type: unspecified Benign hypertension I10 Essential tremor G25.0
--- NOTE | 2023-11-23 19:49 | P.PN_ITS ---
Subjective 2 Subjective: At rest she is doing well, however, with exertion heart rate came up to 140s. Vitals/I&O/Wt Last Vital Signs Temp 97.9 F 11/23/23 16:00 Pulse 95 11/23/23 18:38 Resp 22 H 11/23/23 16:00 BP 120/83 11/23/23 16:00 Pulse Ox 91 11/23/23 16:00 O2 Del Method Room Air 11/23/23 16:00 11/23/23 11/23/23 11/23/23 06:59 14:59 22:59 Intake Total 720 / 720 240 / 960 Balance 720 / 720 240 / 960 Weight last 48 hrs Weight 101.605 kg Weight 102.058 kg Weight 102.058 kg Physical Exam 2 Narrative: Accompanied by family. Const: COMMON NORMALS: patient oriented x3 and alert GENERAL APPEARANCE: c ooperative ORIENTATION/CONSCIOUSNESS: Yes awake HENMT: COMMON NORMALS: oropharynx normal Neck/C-Spine: COMMON NORMALS: no JVD Resp: COMMON NORMALS: normal respiratory effort and clear to auscultation bilaterally AUSCULTATION: clear to auscultation bilaterally Cardio: COMMON NORMALS: no JVD, S1 normal heart sound present, S2 normal heart sound present and No murmurs present (Cardio) RATE: tachycardic RHYTHM: a bnormal rhythm irregularly irregular HEART SOUNDS: S1 normal heart sound present and S2 normal heart sound present GI: COMMON NORMALS: Normal to inspection, nondistended, normoactive bowel sounds present, Soft to palpation and non-tender PALPATION: Yes Soft to palpation Extremity: COMMON NORMALS: no joint enlargement GENERAL: Yes edema (trace) Neuro: COMMON NORMALS: patient oriented x3 and moves all extremities S ENSORIUM/ORIENTATION: Yes alert Skin: COMMON NORMALS: no rashes or lesions noted GENERAL SKIN EXAM: no rashes or lesions noted Data 11/23/23 04:35 11/23/23 04:35 A&P Assessment and plan (1) Atrial fibrillation with rapid ventricular response: Difficult to control A-fib with RVR. Heart rate still up to 140s with ambulation. Reviewed cardiology note, reviewed vitals, CBC, potassium, magnesium, BUN, creatinine. 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 Her Cardizem has been stopped. Propranolol resumed. Reassess heart rates. Cardiology monitoring and considering whether heart rates may improve with medical therapy or whether cardioversion may be necessary. Atrial fibrillation at risk of cardiomyopathy, congestive heart failure, hemodynamic compromise. Potassium and magnesium are good today. Continue increased dose amiodarone 400 mg twice a day as discussed with her for 1 week, then decrease to 200 mg twice a day. Continue propranolol. Monitor on telemetry. Monitor for risk of severe bradycardia with prior bradycardia episodes with Possible tachybradycardia syndrome. Discussed with rehabilitation case coordinator. Order interrogation obtained, reviewed by cardiology. Had an episode of bradycardia back in August. Discussed with nursing, rehabilitation case coordinator. With history of fluid overload, recurrent edema, has developed some worsening edema started on low-dose Lasix that she takes at home. Persistent A-fib with RVR to severe today, with some chest tightness as well. Concerns for tachybradycardia syndrome in the past. On recent admission propranolol dose was changed from 20 mg twice daily to 20 mg daily. Recent echocardiogram back in July showed an EF of 60 to 65% with grade 2 diastolic function, trace MR, mild TR. Continue with home dose of Xarelto. (2) CAD (coronary artery disease): Appreciate recent A1c. Continue statin. Continue with home dose of statin, aspirin 81 mg daily. Appreciate troponin cycle. Last Lexiscan stress test back in July was negative for acute ischemia. Qualifiers: Coronary Disease-Associated Artery/Lesion type: [place] artery [place] vs. transplanted heart: [place] heart Associated angina: without angina Qualified Code(s): I25.10 - Atherosclerotic heart disease of [place] coronary artery without angina pectoris (3) Essential tremor: At home patient is on carbidopa levodopa and propranolol. Was not continued on propranolol. Currently on diltiazem, discussed risk of hypotension with combination, hold off on restarting propranolol for now. On recent discharge carbidopa levodopa was made twice daily and propranolol made daily. (4) Chest pain: Qualifiers: Chest pain type: unspecified Qualified Code(s): R07.9 - Chest pain, unspecified Plan Headache: So far resolved. May give extra dose of Tylenol if needed. Avoid NSAIDs. Stop IV morphine CODE STATUS: Son will be the DPOA. Full code Cardiac diet Famotidine for PUD prophylaxis Xarelto will be for DVT prophylaxis. Attestations 2 Medical Necessity Statement*: Continue admission for optimization of control of persistent difficult to treat A-fib with RVR Diagnoses Atrial fibrillation with rapid ventricular response I48.91 Coronary artery disease involving [place] coronary artery of [place] heart without angina pectoris I25.10 Coronary Disease-Associated Artery/Lesion type: [place] artery [place] vs. transplanted heart: [place] heart Associated angina: without angina Essential tremor G25.0 Chest pain, unspecified type R07.9 Chest pain type: unspecified
[2023-11-23] MEDS: atorvastatin 40 mg Tablet 20 MG PO (21:20)
[2023-11-24] VITALS (7 sets, daily range): BP systolic 98–115; BP diastolic 69–82; PULSE 80–105; RESP 15–19; TEMP 36.5–37; O2SAT 90–94
[2023-11-24] MEDS: isosorbide mononitrate ER 60 mg Tablet PO (05:17)
[2023-11-24 06:36] LABS: Basophils # 0.1 10^3/uL (0.0-0.1); Basophils % 0.7 %; Eosinophils # 0.3 10^3/uL (0.0-0.8); Eosinophils % 4.1 %; Hematocrit 40.1 % (36-47); Lymphocytes % 28.1 %; Mean Corpuscular HGB Conc 31.7 g/dL (30-55); Mean Corpuscular Hemoglobin 30.7 pg (27-33); Mean Corpuscular Volume 96.9 fl (85-98); Mean Platelet Volume 11.3 fL (7.4-10.4); Monocytes # 0.8 10^3/uL (0.2-0.9); Monocytes % 11.8 %; Neutrophils # 3.86 10^3/uL (1.8-7.7); Nucleated Red Blood Cells % 0 %; Platelet Count 244 10^3/cmm (157-399); Red Blood Count 4.14 10^6/uL (3.85-5.65); Red Cell Distribution Width 13.5 % (12.1-15.1); White Blood Count 7.02 10^3/uL (3.29-11.43)
[2023-11-24 07:04] LABS: Anion Gap 17.9 (5-19); Blood Urea Nitrogen 14 mg/dL (8-23); Calcium 8.8 mg/dL (8.5-10.5); Carbon Dioxide 26 mmol/L (22-29); Chloride 102 mmol/L (98-107); Creatinine Clr Calc Pharmacy 42.2832; Glucose 150 mg/dL (65-115); Osmolality Calculated 297 mOsm/kg (285-295); Potassium 3.9 mmol/L (3.5-5.1); Sodium 142 mmol/L (136-145)
[2023-11-24] MEDS: FUROsemide 20 mg Tablet PO (08:29)
[2023-11-24] MEDS: rivaroxaban 10 mg Tablet 20 MG PO (08:29)
[2023-11-24] MEDS: amiodarone 200 mg Tablet 400 MG PO (08:30)
[2023-11-24] MEDS: propranolol 20 mg Tablet 10 MG PO (08:30)
[2023-11-24] MEDS: famotidine 20 mg Tablet PO (08:30)
--- NOTE | 2023-11-24 09:57 | PC.SOCIAL ---
IMM Update pg 2 of IMM updated and reviewed w/ patient. Copy provided and copy dated, initialed and placed in chart.
--- NOTE | 2023-11-24 11:00 | PC.NURSE ---
Patient ambulated the hallway. Patients heart rate was in the 110's with a spike to 130 for about 5 seconds. She ambulated well, no shortness of breath.
--- NOTE | 2023-11-24 12:10 | PM.PN ---
Subjective Subjective: Feels good. Wants to go home. HR controlled Vitals/I&O/Wt Last Vital Signs Temp 97.7 F 11/24/23 11:58 Pulse 97 11/24/23 11:58 Resp 19 H 11/24/23 11:58 BP 109/76 11/24/23 11:58 Pulse Ox 94 11/24/23 11:44 O2 Del Method Room Air 11/24/23 08:17 11/23/23 11/24/23 11/24/23 22:59 06:59 14:59 Intake Total 740 / 1460 240 / 240 Output Total 400 / 400 Balance 340 / 1060 240 / 240 Weight last 48 hrs Weight 224 lb Weight 224 lb Weight 225 lb Physical Exam Narrative: Looks good HENMT: COMMON NORMALS: normocephalic, atraumatic, hearing grossly normal bilaterally, external ears normal, EAC's normal, TM's normal bilaterally, Normal external nose present, Normal nasal mucous membranes and turbinates present, moist oral mucous membranes, oropharynx normal, dentition normal and gingiva normal HEAD & SCALP: normocephalic and atraumatic NOSE: Normal external nose present and Normal nasal mucous membranes and turbinates present EXTERNAL EAR: Yes external ears normal EXTERNAL AUDITORY CANAL: EAC's normal TYMPANIC MEMBRANE: TM's normal bilaterally Neck/C-Spine: COMMON NORMALS: no JVD Chest: COMMONS NORMALS: normal inspection of the chest, normal palpation of entire chest wall, normal inspection of the breasts and normal palpation of the breasts Cardio: COMMON NORMALS: no JVD, regular rate, S1 normal heart sound present, S2 normal heart sound present, No gallops present (Cardio), No clicks present (Cardio), No murmurs present (Cardio), No rub (Cardio) and Peripheral pulses 2+ throughout RATE: regular rate HEART SOUNDS: S1 normal heart sound present and S2 normal heart sound present PERIPHERAL PULSES: Peripheral pulses 2+ throughout GI: COMMON NORMALS: Normal to inspection, nondistended, normoactive bowel sounds present, Soft to palpation, non-tender, No hepatosplenomegaly present, no masses and no bruits PALPATION: Yes Soft to palpation and Yes No hepatosplenomegaly present Skin: COMMON NORMALS: no rashes or lesions noted, no wounds, turgor normal, no jaundice, no petechiae and no mottling GENERAL SKIN EXAM: no rashes or lesions noted and turgor normal Data 11/24/23 06:21 11/24/23 06:21 A&P Assessment and plan (1) Dyslipidemia: (2) CAD (coronary artery disease): Qualifiers: Coronary Disease-Associated Artery/Lesion type: [place] artery [place] vs. transplanted heart: [place] heart Associated angina: without angina Qualified Code(s): I25.10 - Atherosclerotic heart disease of [place] coronary artery without angina pectoris (3) Exertional shortness of breath: (4) Hypertriglyceridemia: (5) Chest pain: Qualifiers: Chest pain type: unspecified Qualified Code(s): R07.9 - Chest pain, unspecified (6) Atrial fibrillation with rapid ventricular response: (7) Benign hypertension: Plan Home today. follow up maral for consideration of [facility] Attestations Medical Necessity Statement*: home and Moderate Time for a total of 5 minutes, includes reviewing past or interval history, examining/interviewing patient, counseling patient/family/other support, updating patient/family/other support, discussing plan of care with staff, communicating with other healthcare providers and documenting encounter Diagnoses Dyslipidemia E78.5 Coronary artery disease involving [place] coronary artery of [place] heart without angina pectoris I25.10 Coronary Disease-Associated Artery/Lesion type: [place] artery [place] vs. transplanted heart: [place] heart Associated angina: without angina Exertional shortness of breath R06.02 Hypertriglyceridemia E78.1 Chest pain, unspecified type R07.9 Chest pain type: unspecified Atrial fibrillation with rapid ventricular response I48.91 Benign hypertension I10
--- NOTE | 2023-11-24 17:49 | P.DS_ITS ---
Discharge Providers Date of Admission: 11/19/23 00:08 Date of Discharge: November 24, 2023 Attending Provider at Admission: Wendie Jin MD Attending Provider at Discharge: Fer Chowdhury Primary Care Provider: CEDRIC Ayon Diagnoses at Discharge Discharge Diagnosis (1) Dyslipidemia: Status: Acute (2) CAD (coronary artery disease): Status: Acute Qualifiers: Coronary Disease-Associated Artery/Lesion type: [place] artery [place] vs. transplanted heart: [place] heart Associated angina: without angina Qualified Code(s): I25.10 - Atherosclerotic heart disease of [place] coronary artery without angina pectoris (3) Exertional shortness of breath: Status: Acute (4) Hypertriglyceridemia: Status: Acute (5) Chest pain: Status: Acute Qualifiers: Chest pain type: unspecified Qualified Code(s): R07.9 - Chest pain, unspecified (6) Atrial fibrillation with rapid ventricular response: Status: Acute (7) Benign hypertension: Status: Acute Reason for Visit Reason for Visit: CP Hospital Course Hospital Course Very pleasant 78-year-old lady with history of atrial fibrillation, 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 She presented to the hospital with atrial fibrillation with RVR, was initially started on Cardizem drip, but without sufficient response, switch to oral Cardizem and started on amiodarone. Propranolol was not continued initially with concerns of bradycardia previously. She required prolonged infusion of amiodarone with very slow response, gradually heart rates trending down from 140s-150s at rest down to 95-105. Was transition to oral amiodarone, however, with that even with small exertion heart rates jumping up into 130s. Cardiology was consulted for additional optimization of atrial fibrillation and her oral amiodarone dose was increased to 400 mg twice daily. Oral Cardizem was discontinued, she was restarted on metoprolol 10 mg 3 times daily, and with c ontinued therapy heart rates showed further gradual improvement. At rest now remain in mid to high 90s. She is feeling well. With exertion still some increase but only up into 120s and do settle down without delay once she gets to rest. She has tolerated ambulation well, and feels comfortable returning home. The shrimp peeler was of the same opinion. Loop recorder was interrogated and reviewed by cardiology in the hospital. Continue follow-up with cardiology for reassessment of loop recorder and consideration with at some point pacemaker may be deemed necessary. Physical Exam Narrative: Accompanied by family. Const: COMMON NORMALS: patient oriented x3 and alert GENERAL APPEARANCE: cooperative ORIENTATION/CONSCIOUSNESS: Yes awake HENMT: COMMON NORMALS: oropharynx normal Neck/C-Spine: COMMON NORMALS: no JVD Resp: COMMON NORMALS: normal respiratory effort and clear to auscultation bilaterally AUSCULTATION: clear to auscultation bilaterally Cardio: COMMON NORMALS: no JVD, S1 normal heart sound present, S2 normal heart sound present and No murmurs present (Cardio) RHYTHM: abnormal rhythm irregul delroy irregular HEART SOUNDS: S1 normal heart sound present and S2 normal heart sound present GI: COMMON NORMALS: Normal to inspection, nondistended, normoactive bowel sounds present, Soft to palpation and non-tender PALPATION: Yes Soft to palpation Extremity: COMMON NORMALS: no joint enlargement GENERAL: Yes edema (trace) Neuro: COMMON NORMALS: patient oriented x3 and moves all extremities SENSORIUM/ORIENTATION: Yes alert Skin: COMMON NORMALS: no rashes or lesions noted GENERAL SKIN EXAM: no rashes or lesions noted Discharge Data Studies Completed and Pending Completed Studies During Hospitalization Category Date Time Status XR chest 1V portable [id number] Stat Exams 11/18/23 20:07 Completed Radiology Impressions Chest X-Ray 11/18/23 20:07 IMPRESSION: 1. Cardiomegaly. 2. Left lower lobe atelectasis. Laboratory Results WBC 7.02 10^3/uL (3.29-11.43) 11/24/23 06:21 RBC 4.14 10^6/uL (3.85-5.65) 11/24/23 06:21 Hgb 12.70 g/dL (11.27-16.99) 11/24/23 06:21 Hct 40.1 % (36-47) 11/24/23 06:21 MCV 96.9 fl (85-98) 11/24/23 06:21 MCH 30.7 pg (27-33) 11/24/23 06:21 MCHC 31.7 g/dL (30-55) 11/24/23 06:21 RDW 13.5 % (12.1-15.1) 11/24/23 06:21 Plt Count 244 10^3/cmm (157-399) 11/24/23 06:21 MPV 11.3 fL (7.4-10.4) H 11/24/23 06:21 Neut % (Auto) 55.0 % 11/24/23 06:21 Lymph % (Auto) 28.1 % 11/24/23 06:21 [place] % (Auto) 11.8 % 11/24/23 06:21 Eos % (Auto) 4.1 % 11/24/23 06:21 Baso % (Auto) 0.7 % 11/24/23 06:21 Neut # (Auto) 3.86 10^3/uL (1.8-7.7) 11/24/23 06:21 Lymph # (Auto) 2.0 10^3/uL (0.8-4.8) 11/24/23 06:21 [place] # (Auto) 0.8 10^3/uL (0.2-0.9) 11/24/23 06:21 Eos # (Auto) 0.3 10^3/uL (0.0-0.8) 11/24/23 06:21 Baso # (Auto) 0.1 10^3/uL (0.0-0.1) 11/24/23 06:21 Nucleated RBC % (auto) 0 % 11/24/23 06:21 Nucleated RBCs # 0.0 /100WBC 11/24/23 06:21 PT 16.50 SECONDS (12.1-14.9) H 11/18/23 20:28 INR 1.29 (0.8-1.2) H 11/18/23 20:28 APTT 29.9 SECONDS (23.9-36.7) 11/18/23 20:28 Sodium 142 mmol/L (136-145) 11/24/23 06:21 Potassium 3.9 mmol/L (3.5-5.1) 11/24/23 06:21 Chloride 102 mmol/L (98-107) 11/24/23 06:21 Carbon Dioxide 26 mmol/L (22-29) 11/24/23 06:21 Anion Gap 17.9 (5-19) 11/24/23 06:21 BUN 14 mg/dL (8-23) 11/24/23 06:21 Creatinine 1.2 mg/dL (0.5-0.9) H 11/24/23 06:21 GFR Calculation Not Reportable 11/24/23 06:21 Glucose 150 mg/dL (65-115) H 11/24/23 06:21 Calculated Osmolality 297 mOsm/kg (285-295) H 11/24/23 06:21 Calcium 8.8 mg/dL (8.5-10.5) 11/24/23 06:21 Phosphorus 3.0 mg/dL (2.5-4.5) 11/20/23 07:05 Magnesium 2.0 mg/dL (1.7-2.3) 11/23/23 04:35 Total Bilirubin 0.3 mg/dL (0.15-1.2) 11/20/23 07:05 AST 23 U/L (0-32) 11/20/23 07:05 ALT 16 U/L (0-33) 11/20/23 07:05 Alkaline Phosphatase 53 U/L (35-105) 11/20/23 07:05 Troponin T Baseline 17 ng/L (0-10) H 11/18/23 20:28 Troponin T 120 Minute 21.53 ng/L (0-10) H 11/18/23 22:28 Delta Troponin T 4.53 ABS# (0-10) 11/18/23 22:28 Troponin T Hi Sens 6Hr 22.28 ng/L (0-10) H 11/19/23 02:36 Troponin T Hi Sens 6Hr Delta 5.28 ng/L (0-12) 11/19/23 02:36 NT-Pro-B Natriuret Pep 155 pg/mL (0-450) 11/18/23 20:28 Total Protein 7.0 g/dL (6.6-8.7) 11/20/23 07:05 Albumin 3.5 g/dL (3.5-5.2) 11/20/23 07:05 Globulin 3.5 g/dL (1.3-4.6) 11/20/23 07:05 Triglycerides 379 mg/dL (0-150) H 11/20/23 07:05 Cholesterol 152 mg/dL (0-200) 11/20/23 07:05 LDL Cholesterol, Calc 42 mg/dL (50-129) L 11/20/23 07:05 HDL Cholesterol 34 mg/dL (60-100) L 11/20/23 07:05 LDL/HDL Ratio 1.24 RATIO (0.00-3.22) 11/20/23 07:05 Cholesterol/HDL Ratio 4.47 mg/dL (0.0-4.40) H 11/20/23 07:05 TSH 2.29 uIU/mL (0.27-4.20) 11/18/23 20:28 Urine Color Yellow (Yellow) 11/18/23 01:11 Urine Appearance Clear (CLEAR) 11/18/23 01:11 Urine pH 5 (5-7) 11/18/23 01:11 Ur Specific [place] 1.020 (1.005-1.030) 11/18/23 01:11 Urine Protein Neg (Negative) 11/18/23 01:11 Urine Glucose (UA) Norm (Normal) 11/18/23 01:11 Urine Ketones Negative (Negative) 11/18/23 01:11 Urine Blood Neg (Negative) 11/18/23 01:11 Urine Nitrate Negative (Negative) 11/18/23 01:11 Urine Bilirubin Neg (Negative) 11/18/23 01:11 Urine Urobilinogen Neg mg/dL (Negative) 11/18/23 01:11 Ur Leukocyte Esterase Negative (Negative) 11/18/23 01:11 Vitals Last Vital Signs Temp 97.7 F 11/24/23 11:58 Pulse 97 11/24/23 11:58 Resp 19 H 11/24/23 11:58 BP 109/76 11/24/23 11:58 Pulse Ox 94 11/24/23 11:44 O2 Del Method Room Air 11/24/23 08:17 Discharge Plan Discharge Patient Disposition: Home Health Service Condition: Stable Prescriptions: New Pacerone 200 mg Tablet See Rx Instructions .ROUTE .COMPLEX Qty: 90 0RF Rx Instructions: Take 400 mg twice daily for 1 week, then 200 mg twice daily. propranolol 20 mg Tablet 10 mg PO TID Qty: 90 0RF Continued fluticasone propionate [Flonase Allergy Relief] 50 mcg/actuation spra y,suspension 2 spray intranasal DAILY PRN (Reason: Allergy Symptoms) Rx Instructions: administer into each nostril Xarelto 20 mg tablet 20 mg PO DAILY Qty: 100 3RF Vascepa 1 gram capsule 1 g PO DAILY Qty: 90 3RF primidone 50 mg tablet 50 mg PO BEDTIME atorvastatin 20 mg tablet 20 mg PO BEDTIME isosorbide mononitrate 60 mg tablet extended release 24 hr 60 mg PO QAM allopurinol 300 mg tablet 300 mg PO DAILY PRN (Reason: gout) loratadine 10 mg tablet 10 mg PO DAILY PRN (Reason: Allergy Symptoms) ketoconazole 2 % shampoo See Rx Instructions .ROUTE .COMPLEX PRN (Reason: SCALP IRRITATION) Rx Instructions: APPLY TOPICALLY TO THE AFFECTED AREA(S), LATHER, LEAVE FOR 5 MINUTES & THEN RINSE OFF ONCE DAILY. donepezil 10 mg tablet 10 mg PO DAILY triamcinolone acetonide 0.1 % cream 1 applic TOPICAL BID carbidopa-levodopa 10-100 mg tablet 1 tab PO BID Qty: 60 0RF Discontinued irbesartan 150 mg tablet 150 mg PO QAM propranolol 20 mg tablet 20 mg PO .once daily Qty: 10 0RF Discharge Orders: Discharge Order (Routine); Ordered 11/22/23 Ordered By: Fer Chowdhury Referrals: [facility] [Other] Bonnie Fleming FNP [Primary Care Provider] - 11/29/23 1:00 pm Greta Garcia FNP [Nurse Practitioner] - 12/12/23 2:30 pm Discharge Diet: Cardiac Patient Instructions: Propranolol (By mouth), Amiodarone (By mouth), A-fib (Atrial Fibrillation) (DC), Chest Pain (DC), Tremors (DC), Chest Pain Stoplight, Opioid Safety Activity Restrictions/Additional Instructions: Continue amiodarone and Propranolol for control of atrial fibrillation, follow- up with cardiology and apparently provider. Discuss if any options might be available instead of amiodarone given long-term risk of toxicities with this medication including to eyes thyroid, lungs, liver, has a primary doctor follow- up and monitoring for any symptoms of toxicities. He did not have optimal control with beta-barbra or diltiazem alone which is why amiodarone had to be started. Follow-up with cardiology for reassessment of loop recorder, monitoring for any bradycardia which may suggest need for pacemaker. Discharge Attestations Time Spent in Discharge Care*: greater than 30 min Quality Metrics Clinical Quality Measures [ No reported AMI, CVA or VTE this stay] Coding Level of Care Code 66546 Total time (in minutes) for Discharge: 40 Diagnoses Dyslipidemia E78.5 Coronary artery disease involving [place] coronary artery of [place] heart without angina pectoris I25.10 Coronary Disease-Associated Artery/Lesion type: [place] artery [place] vs. transplanted heart: [place] heart Associated angina: without angina Exertional shortness of breath R06.02 Hypertriglyceridemia E78.1 Chest pain, unspecified type R07.9 Chest pain type: unspecified Atrial fibrillation with rapid ventricular response I48.91 Benign hypertension I10
== END 2023-11-24 12:35 | disposition home health service (06) | DRG 310 ==
LOC: ER 22:14 → CSU 11-19 04:26
PROVIDERS: Internal Medicine; Student in an Organized Health Care Education/Training Program; Admitting Provider Internal Medicine; Emergency Provider Emergency Medicine; PCP Nurse Practitioner Family; Visit Provider Internal Medicine
DX: I48.20 Chronic atrial fibrillation, unspecified (principal); I25.10 Atherosclerotic heart disease of native coronary artery without angina pectoris; Z79.01 Long term (current) use of anticoagulants; I10 Essential (primary) hypertension; E78.1 Pure hyperglyceridemia; R51.9 Headache, unspecified; M10.9 Gout, unspecified; E66.9 Obesity, unspecified; G25.0 Essential tremor
CPT/HCPCS: 36415; 71045; 80048; 80053; 80061; 81003; 83735; 83880; 84100; 84443; 84484; 85025; 85610; 85730; 93005; 96365; 96366; 96375; 99285; A4222; J0283; J3475; J3490

== ENCOUNTER → 2023-11-21 11:49 | Outpatient (BNVA) | payer MEDICARE, SELFPAY | PROVIDERS: PCP Nurse Practitioner Family; Visit Provider Internal Medicine | DX: Z45.09 Encounter for adjustment and management of other cardiac device (principal) | CPT/HCPCS: 93298 ==

== ENCOUNTER → 2023-12-12 14:49 | Outpatient (BNVA) | payer MEDICARE, SELFPAY | PROVIDERS: PCP Nurse Practitioner Family; Visit Provider Nurse Practitioner Family | DX: I48.91 Unspecified atrial fibrillation (principal); R00.1 Bradycardia, unspecified | CPT/HCPCS: 93005; 99213 ==

== ENCOUNTER → 2023-12-18 12:51 | Outpatient (BNVA) | payer MEDICARE, SELFPAY | PROVIDERS: PCP Nurse Practitioner Family; Visit Provider Psychiatry & Neurology Neurology | DX: G25.0 Essential tremor (principal); E55.9 Vitamin D deficiency, unspecified; E78.5 Hyperlipidemia, unspecified; I48.91 Unspecified atrial fibrillation; I10 Essential (primary) hypertension; R07.9 Chest pain, unspecified; E78.1 Pure hyperglyceridemia; R06.02 Shortness of breath; I25.10 Atherosclerotic heart disease of native coronary artery without angina pectoris; B37.9 Candidiasis, unspecified; R42 Dizziness and giddiness; M1A.9XX0 Chronic gout, unspecified, without tophus (tophi); Z95.818 Presence of other cardiac implants and grafts | CPT/HCPCS: 36415; 82306; 82542; 82607; 82746; 83090; 83735; 83921; 86592; 99203 ==

== ENCOUNTER → 2023-12-28 15:14 | Outpatient (BNVA) | payer MEDICARE, SELFPAY | PROVIDERS: PCP Nurse Practitioner Family; Visit Provider Internal Medicine | DX: I25.10 Atherosclerotic heart disease of native coronary artery without angina pectoris (principal); I48.91 Unspecified atrial fibrillation; E78.5 Hyperlipidemia, unspecified; R03.0 Elevated blood-pressure reading, without diagnosis of hypertension; R07.9 Chest pain, unspecified; I10 Essential (primary) hypertension; R00.1 Bradycardia, unspecified; R06.02 Shortness of breath; E78.1 Pure hyperglyceridemia; G25.0 Essential tremor; R42 Dizziness and giddiness | CPT/HCPCS: 99214 ==

== ENCOUNTER 2024-01-09 12:13 | Observation (INO) | payer MEDICARE, SELFPAY ==
[2024-01-09] VITALS (60 sets, daily range): BP systolic 120–237; BP diastolic 59–126; PULSE 48–73; RESP 14–25; TEMP 36.6; O2SAT 87–97; BMI 38.5
--- NOTE | 2024-01-09 12:18 | ECG_ITS ---
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 Measurements Intervals [place] Rate: 47 P: 0 GA: 0 QRS: 7 QRSD: 98 T: 6 QT: 434 QTc: 386 Interpretive Statements ATRIAL FIBRILLATION WITH SLOW VENTRICULAR RESPONSE POSSIBLE ANTERIOR MYOCARDIAL INFARCTION , OF INDETERMINATE AGE [30 ms Q WAVE IN V3/V4, OR R < 0.2 mV IN V4] Compared to ECG 12/12/2023 14:56:57 Myocardial infarct finding now present Sinus bradycardia no longer present Electronically Signed On 01-09-2024 16:41:12 CDT by Julian Pitts M.D. [email or web address]
--- NOTE | 2024-01-09 12:38 | CT_ITS ---
WS: [email or web address] Examination: CT head wo con* [id number] Reason for Exam: dizziness/weakness Date: 01/09/2024 Comparison: November 02, 2023 DLP: 1111.[address] scans at [facility] use at least one of these dose optimization techniques: automated e xposure control; mA and/or kV adjustment per patient size (includes targeted exams where dose is matc hed to clinical indication); or iterative reconstruction. Findings: The calvarium is intact without depressed fracture. The visualized paranasal sinuses are well-aerated as are the mastoid air cells. There is age-appropriate volume loss and atrophy. There is no midline shift. There is no hydrocephalu s. Scattered ischemic microvascular changes are suspected. There is no intracranial hemorrhage or hematoma CT/CT head wo con* [id number] IMPRESSION: There is no hemorrhage or hydrocephalus. Age-appropriate involutional changes are noted. Impression:
--- NOTE | 2024-01-09 12:38 | CT_ITS ---
WS: [email or web address] Examination: CT angio headneck* [id number] Reason for Exam: dizziness/weakness starting last evening. Parkinson's disease. Date: 01/09/2024 Comparison: None. DLP: 561.[address] scans at [facility] use at least one of these dose optimization techniques: automated e xposure control; mA and/or kV adjustment per patient size (includes targeted exams where dose is matc hed to clinical indication); or iterative reconstruction. Findings: The thoracic arch is maintained as are the origins of the great vessels. The brachiocephalic artery and visualized portions of the proximal subclavian arteries are well-maint ained. Artifact obscures portions of the right system. The right common carotid artery is partially obscured proximally. Otherwise it is well-maintained to the carotid bifurcation with limited plaque disease and no stenosis at the bifurcation. The left comm on carotid artery is well maintained. The internal carotid arteries are maintained to and through the skull base, there is mild distal plaq ue disease and atherosclerosis. The anterior cerebral arteries are well-maintained. The middle cerebral vessels are well maintained. While there is motion artifact the proximal vertebral arteries are well maintained the proximal left is dominant. The basilar artery is well maintained. The posterior cerebral arteries are well identifi ed. They take their flow from the anterior circulation. Punctate/small parenchymal nodules are noted. These were present on the previous study and are genera lly unchanged. No central PE are appreciated. No upper mediastinal adenopathy is identified. At C6-7 dominant degenerative changes are noted CT/CT angio headne* [id number] Impression: There is mild artifact proximally due to contrast streak artifact There is no large vessel occlusion. The cervical vertebral and carotid vessels appear maintained as do the [place] vessels. Small/punctate parenchymal nodules are identified in the upper lungs. These are similar to the previous study.
--- NOTE | 2024-01-09 12:38 | XRR_ITS ---
PROCEDURE INFORMATION: Exam: XR Chest Exam date and time: 01/09/2024 12:41 PM Age: 78 years old Clinical indication: Prior surgery; Surgery date: 6+ months; Surgery type: Gb/loop recorder; Patient HX: Hbp and dizziness, HX of melanoma; Additional info: Weakness TECHNIQUE: Imaging protocol: Radiologic exam of the chest. Views: 1 view. COMPARISON: CR XR chest 1V portable [id number] 11/18/2023 8:19 PM FINDINGS: Tubes, catheters and devices: Loop recorder is present. Lungs: Suboptimal pulmonary expansion with associated accentuation of bronchovascular markings. No significant active pulmonary pathology. Pleural spaces: No pleural effusion. Heart/Mediastinum: Cardiomediastinal contours accentuated by low lung volumes and AP technique. Bones/joints: No significant pathology. XR/XR chest 1V portable [id number] IMPRESSION: No acute pathology or significant interval change.
--- NOTE | 2024-01-09 12:40 | W.ED.DIZZY ---
HPI - Dizziness General: Chief Complaint: Dizziness Stated Complaint: HBP/Dizziness Time Seen by Provider: 01/09/24 12:21 Source: patient Mode of arrival: ambulatory Limitations: no limitations History of Present Illness: HPI Narrative: 70-year-old female has a history of A-fib but she states that starting last night at 10 PM she started getting a headache along with dizziness states she has had generalized weakness as well. States today her headaches continued and felt quite dizzy she states she had a very hard time walking and feels very unsteady family states that they had a hard time getting her and had assist her to walk. She is on Xarelto patient does have A-fib states she has had a history of some bradycardia is bradycardic here. Denies any fevers denies any worse improved factors Related Data Home Medications Medication Instructions Recorded Confirmed fluticasone propionate 50 2 spray intranasal DAILY PRN 09/15/21 12/28/23 mcg/actuation nasal Allergy Symptoms spray,suspension (Flonase Allergy Relief) allopurinol 300 mg tablet 300 mg PO DAILY PRN gout 07/29/23 12/28/23 atorvastatin 20 mg tablet 20 mg PO BEDTIME 07/29/23 12/28/23 isosorbide mononitrate 60 mg 60 mg PO QAM 07/29/23 12/28/23 tablet,extended release 24 hr loratadine 10 mg tablet 10 mg PO DAILY PRN Allergy Symptoms 07/29/23 12/28/23 primidone 50 mg tablet 50 mg PO BEDTIME 07/29/23 12/28/23 donepezil 10 mg tablet 10 mg PO DAILY 11/02/23 12/28/23 ketoconazole 2 % shampoo See Rx Instructions .Route 11/02/23 12/18/23 .COMPLEX PRN SCALP IRRITATION triamcinolone acetonide 0.1 % 1 applic topical BID 11/02/23 12/18/23 topical cream Previous Rx's Medication Instructions Recorded rivaroxaban 20 mg tablet (Xarelto) 20 mg PO DAILY #100 tabs 04/24/23 icosapent ethyl 1 gram capsule 1 g PO DAILY #90 caps 08/07/23 (Vascepa) carbidopa 10 mg-levodopa 100 mg 1 tab PO BID #60 tabs 11/04/23 tablet amiodarone 200 mg tablet (Pacerone) See Rx Instructions .Route 11/22/23 .COMPLEX #90 tabs propranolol 20 mg tablet 10 mg (1/2 x 20 mg) PO TID #90 tabs 11/24/23 albuterol sulfate 90 mcg/actuation 2 inh inhalation Q8H PRN shortness 12/12/23 aerosol inhaler of breath or wheezing #8.5 grams cholecalciferol (vitamin D3) 1,250 50,000 unit PO .COMPLEX #14 caps 12/26/23 mcg (50,000 unit) capsule Allergies Allergy/AdvReac Type Severity Reaction Status Date / Time lisinopril Allergy coughing Verified 01/09/24 12:28 [facility] ED PFS: Medical History Atrial fibrillation Essential tremor Generalized weakness Lactic acidosis Acute metabolic encephalopathy Sepsis Atrial fibrillation Urinary tract infection UTI (urinary tract infection) Bradycardia Elevated blood pressure reading Palpitation HTN (hypertension) Gout Dyslipidemia Melanoma Surgical History Hx of cataract extraction History of cholecystectomy Status post laparoscopic cholecystectomy (03/30/20) History of removal of ovarian cyst History of carpal tunnel release S/P complete hysterectomy H/O esophagogastroduodenoscopy 1977 H/O colonoscopy 2016 Family History Mother Melanoma Diabetes Stroke Father CAD (coronary artery disease) unknown age of onset, [place] at 62 Cancer Family/Other Cancer Grandmother Cancer Brother Diabetes Denies family history of Clotting disorder Dementia Chronic kidney disease (CKD) Suicide Anesthesia complication Bleeding disorder Lung disease Social History Smoking and tobacco/nicotine status: never used tobacco/nicotine Alcohol intake: never Substance/Drug Use: never Household members: spouse Marital status: Current occupational status: retired Physical Exam Const: COMMON NORMALS: patient oriented x3 GENERAL APPEARANCE: ill appearing and frail appearing HENMT: COMMON NORMALS: normocephalic and atraumatic HEAD & SCALP: normocephalic and atraumatic Eye: COMMON NORMALS: Equal, round and reactive pupils present and EOMs intact bilaterally PUPIL: Yes Equal, round and reactive pupils present Neck/C-Spine: COMMON NORMALS: full ROM and supple Chest: COMMONS NORMALS: normal inspection of the chest Resp: COMMON NORMALS: normal respiratory effort, No retractions, No use of accessory muscles and clear to auscultation bilaterally AUSCULTATION: clear to auscultation bilaterally Cardio: COMMON NORMALS: No murmurs present (Cardio) RATE: bradycardic RHYTHM: abnormal rhythm irregularly irregular GI: COMMON NORMALS: Normal to inspection, nondistended, normoactive bowel sounds present, Soft to palpation, non-tender and no masses PALPATION: Yes Soft to palpation Extremity: COMMON NORMALS: normal to inspection and full ROM Neuro: COMMON NORMALS: patient oriented x3 OTHER: Patient has global weakness she has weakness in all 4 extremities she is able to lift them but immediately they fall back to the bed she is not able to ambulate here. Psych: COMMON NORMALS: mental status grossly normal, Normal thought process present and cooperative THOUGHT PROCESS: Normal thought process present Skin: COMMON NORMALS: no rashes or lesions noted and no wounds GENERAL SKIN EXAM: no rashes or lesions noted Course Vital Signs: Vital signs: Vital Signs Temperature 97.8 F 01/09/24 12:24 Pulse Rate 62 01/09/24 16:36 Respiratory Rate 15 01/09/24 13:06 Blood Pressure 198/107 01/09/24 16:36 Pulse Oximetry 97 01/09/24 16:36 Oxygen Delivery Me thod Room Air 01/09/24 16:36 MDM - Dizziness Medical Decision Making Patient presents here with dizziness hard time walking and generalized weakness she is hypertensive here CT CTA showed no signs of acute stroke her last known normal was yesterday at 9 PM she is not a lytic candidate. I did speak to the hospitalist will admit at this time for weakness dizziness and hypertension Medical Records I reviewed the patient's medical records. Lab Data I reviewed the patient's lab results. 01/09/24 12:48 01/09/24 12:48 Radiology Impressions Chest X-Ray 01/09/24 12:38 IMPRESSION: No acute pathology or significant interval change. Head CT 01/09/24 12:38 IMPRESSION: There is no hemorrhage or hydrocephalus. Age-appropriate involutional changes are noted. Impression: Head/Neck CTA 01/09/24 12:38 Impression: There is mild artifact proximally due to contrast streak artifact There is no large vessel occlusion. The cervical vertebral and carotid vessels appear maintained as do the three affiliated of Walter vessels. Small/punctate parenchymal nodules are identified in the upper lungs. These are similar to the previous study. Laboratory Results WBC 6.98 10^3/uL (3.29-11.43) 01/09/24 12:48 RBC 4.59 10^6/uL (3.85-5.65) 01/09/24 12:48 Hgb 13.70 g/dL (11.27-16.99) 01/09/24 12:48 Hct 44.6 % (36-47) 01/09/24 12:48 MCV 97.2 fl (85-98) 01/09/24 12:48 MCH 29.8 pg (27-33) 01/09/24 12:48 MCHC 30.7 g/dL (30-55) 01/09/24 12:48 RDW 13.7 % (12.1-15.1) 01/09/24 12:48 Plt Count 237 10^3/cmm (157-399) 01/09/24 12:48 MPV 11.4 fL (7.4-10.4) H 01/09/24 12:48 Neut % (Auto) 61.4 % 01/09/24 12:48 Lymph % (Auto) 24.1 % 01/09/24 12:48 Tucker % (Auto) 11.2 % 01/09/24 12:48 Eos % (Auto) 2.3 % 01/09/24 12:48 Baso % (Auto) 0.9 % 01/09/24 12:48 Neut # (Auto) 4.29 10^3/uL (1.8-7.7) 01/09/24 12:48 Lymph # (Auto) 1.7 10^3/uL (0.8-4.8) 01/09/24 12:48 Tucker # (Auto) 0.8 10^3/uL (0.2-0.9) 01/09/24 12:48 Eos # (Auto) 0.2 10^3/uL (0.0-0.8) 01/09/24 12:48 Baso # (Auto) 0.1 10^3/uL (0.0-0.1) 01/09/24 12:48 Nucleated RBC % (auto) 0 % 01/09/24 12:48 Nucleated RBCs # 0.0 /100WBC 01/09/24 12:48 PT 27.00 SECONDS (12.1-14.9) H 01/09/24 12:48 INR 2.40 (0.8-1.2) H 01/09/24 12:48 Sodium 143 mmol/L (136-145) 01/09/24 12:48 Potassium 4.3 mmol/L (3.5-5.1) 01/09/24 12:48 Chloride 105 mmol/L (98-107) 01/09/24 12:48 Carbon Dioxide 24 mmol/L (22-29) 01/09/24 12:48 Anion Gap 18.3 (5-19) 01/09/24 12:48 BUN 13 mg/dL (8-23) 01/09/24 12:48 Creatinine 1.0 mg/dL (0.5-0.9) H 01/09/24 12:48 GFR Calculation Not Reportable 01/09/24 12:48 Glucose 131 mg/dL (65-115) H 01/09/24 12:48 Calculated Osmolality 298 mOsm/kg (285-295) H 01/09/24 12:48 Calcium 9.2 mg/dL (8.5-10.5) 01/09/24 12:48 Magnesium 1.7 mg/dL (1.7-2.3) 01/09/24 12:48 Total Bilirubin 0.4 mg/dL (0.15-1.2) 01/09/24 12:48 AST 25 U/L (0-32) 01/09/24 12:48 ALT 14 U/L (0-33) 01/09/24 12:48 Alkaline Phosphatase 57 U/L (35-105) 01/09/24 12:48 Total Protein 7.6 g/dL (6.6-8.7) 01/09/24 12:48 Albumin 4.2 g/dL (3.5-5.2) 01/09/24 12:48 Globulin 3.4 g/dL (1.3-4.6) 01/09/24 12:48 TSH 1.14 uIU/mL (0.27-4.20) 01/09/24 12:48 Amorphous Sediment Not Reportable 01/09/24 16:17 All radiology interpretation(s) finalized by discharge EKG Data EKG 1: I personally reviewed and interpreted this EKG as follows: EKG interpretation date: 01/09/24 EKG interpretation time: 12:18 Interpretation: afib with slow rvr hr [address] elevation qrs 98 qtc 397 Discharge Plan Discharge Patient Disposition: Admitted As Inpatient Clinical Impression: Dizziness, Generalized weakness, Hypertension Condition: Stable Coding Level of Care Code ED Beam Racker for Hakeem Sebastian
[2024-01-09 13:03] LABS: Basophils # 0.1 10^3/uL (0.0-0.1); Basophils % 0.9 %; Eosinophils # 0.2 10^3/uL (0.0-0.8); Eosinophils % 2.3 %; Hematocrit 44.6 % (36-47); Lymphocytes # 1.7 10^3/uL (0.8-4.8); Lymphocytes % 24.1 %; Mean Corpuscular HGB Conc 30.7 g/dL (30-55); Mean Corpuscular Hemoglobin 29.8 pg (27-33); Mean Corpuscular Volume 97.2 fl (85-98); Mean Platelet Volume 11.4 fL (7.4-10.4); Monocytes # 0.8 10^3/uL (0.2-0.9); Monocytes % 11.2 %; Neutrophils # 4.29 10^3/uL (1.8-7.7); Neutrophils % 61.4 %; Nucleated Red Blood Cells % 0 %; Platelet Count 237 10^3/cmm (157-399); Red Blood Count 4.59 10^6/uL (3.85-5.65); Red Cell Distribution Width 13.7 % (12.1-15.1); White Blood Count 6.98 10^3/uL (3.29-11.43)
[2024-01-09 13:24] LABS: Blood Urea Nitrogen 13 mg/dL (8-23); Calcium 9.2 mg/dL (8.5-10.5); Chloride 105 mmol/L (98-107); Magnesium 1.7 mg/dL (1.7-2.3); Potassium 4.3 mmol/L (3.5-5.1); Sodium 143 mmol/L (136-145); Thyroid Stimulating Hormone 1.14 uIU/mL (0.27-4.20); Total Bilirubin 0.4 mg/dL (0.15-1.2)
[2024-01-09 13:40] LABS: Alanine Aminotransferase 14 U/L (0-33); Albumin Level 4.2 g/dL (3.5-5.2); Alkaline Phosphatase 57 U/L (35-105); Anion Gap 18.3 (5-19); Aspartate Amino Transferase 25 U/L (0-32); Carbon Dioxide 24 mmol/L (22-29); Globulin 3.4 g/dL (1.3-4.6); Glucose 131 mg/dL (65-115); Osmolality Calculated 298 mOsm/kg (285-295); Total Protein 7.6 g/dL (6.6-8.7)
[2024-01-09 14:54] LABS: Creatinine Clr Calc Pharmacy 50.0234
[2024-01-09] MEDS: hyDRALAzine 20 mg/mL INJ 1 mL 10 MG IVP ×2 (16:04→16:29)
[2024-01-09 16:25] LABS: Charge for UA Resulting for Rev
[2024-01-09 16:27] LABS: Bilirubin Urine Negative (Negative); Blood Urine Negative (Negative); Glucose Urine UA Negative (Normal); Ketones Urine Negative (Negative); Leukocyte Esterase Urine 2+ (Negative); Nitrate Urine Negative (Negative); Protein Urine Trace (Negative); Urine Appearance Cloudy (CLEAR); Urine Color Yellow (Yellow); Urobilinogen Urine 0.2 mg/dL (Negative)
--- NOTE | 2024-01-09 16:31 | USCV_ITS ---
David Kadi Age: 78 Gender: F : 1945 Exam Date: 01/09/2024 18:06 Ordering Phys: Denilson Pearce MD Technologist: ELVIS [place] [facility] [place] Indication: dizziness, weakness, History of atrial fibrillation, HTN. BP: 198 / 107 HR: 56 Rhythm: Sinus Technical Quality: Adequate MEASUREMENTS (Male / Female) Normal Values 2D ECHO LV Diastolic Diameter PLAX 4.3 cm 4.2 - 5.9 / 3.9 - 5.3 cm IVS Diastolic Thickness 1.6 cm 0.6 - 1.0 / 0.6 - 0.9 cm IVS Systolic Thickness 1.8 cm LVPW Diastolic Thickness 1.7 cm 0.6 - 1.0 / 0.6 - 0.9 cm LVPW Systolic Thickness 1.8 cm LVOT Diameter 2.1 cm LV Ejection Fraction 2D Teich 64.5 % LV Ejection Fraction MOD 4C 57.1 % LV Ejection Fraction MOD 2C 62.2 % LV Ejection Fraction 2C AL 63.3 % LA Diameter 4.8 cm Aorta at Sinotubular Diameter 2.6 cm IVC Diameter 1.1 cm M-MODE LA Ao Ratio MM 1.8 AV Cusp Separation MM 1.5 cm DOPPLER AV Peak Velocity 143.0 cm/s LVOT Peak Velocity 100.0 cm/s AV Area Cont Eq vti 2.6 cm squared AV Area Cont Eq pk 2.3 cm squared MV Area PHT 2.2 cm squared Mitral E to A Ratio 1.6 TV Peak Velocity 311.5 cm/s TR Peak Velocity 329.0 cm/s TR Peak Gradient 43.3 mmHg TV Peak E Velocity 36.0 cm/s Right Atrial Pressure 10.0 mmHg Pulmonary Artery Systolic Pressu 53.3 mmHg PV Peak Velocity 114.0 cm/s FINDINGS Left Ventricle Normal left ventricular size and systolic function, EF 64% .no regional wall motion abnormalities. Grade III/IV diastolic dysfunction (restrictive filling pattern), severely elevated filling pressures. Right Ventricle The right ventricle is normal in size and function. Right Atrium The right atrium is normal in size. Left Atrium Mildly increased left atrial size. Mitral Valve Trace mitral valve regurgitation. Aortic Valve Thickened aortic valve. Features of aortic valve sclerosis Tricuspid Valve Mild tricuspid valve regurgitation. Pulmonic Valve No gross abnormalities noted Pericardium Normal pericardium without effusion. Aorta Normal ascending aorta dimension. IVC The inferior vena cava appears normal. CONCLUSIONS Normal left ventricular size and systolic function, EF 64% .no regional wall motion abnormalities. Grade III/IV diastolic dysfunction (restrictive filling pattern), severely elevated filling pressures. Trace mitral valve regurgitation. Mildly increased left atrial size. Thickened aortic valve. Features of aortic valve sclerosis. Mild tricuspid valve regurgitation. Estimated pulmonary artery peak systolic pressure 53 mmHg- moderate pulmonary hypertension There is no pericardial effusion. There are no intracardiac masses. Dr Mandie Montano MD FACC (Electronically Signed) Final Date: 09 January 2024 23:58 S
--- NOTE | 2024-01-09 16:31 | ECG_ITS ---
[facility] Test Date: 2024-01-09 Pat Name: Kadi Hernandez Department: Room: Gender: Female Lacing Cutter: : 1945 Requested By: Denilson Pearce Order Number: [id number] Al MD: Julian Pitts M.D. Measurements Intervals [place] Rate: 63 P: 61 LA: 176 QRS: 54 QRSD: 80 T: 28 QT: 350 QTc: 361 Interpretive Statements SUPRAVENTRCULAR RHYTHM LOW QRS VOLTAGE IN PRECORDIAL LEADS [QRS DEFLECTION < 1.0 mV IN CHEST LEADS] NONSPECIFIC T-WAVE ABNORMALITY Compared to ECG 01/09/2024 12:18:06 Low QRS voltage now present T-wave abnormality now present Myocardial infarct finding no longer present Electronically Signed On 01-09-2024 16:43:48 CDT by Julian Pitts M.D. [id number]
--- NOTE | 2024-01-09 16:33 | PC.NURSE ---
NOTIFIED DR. JOHNSON OF ELEVATED BP. DR. JOHNSON ORDERED HYDRALAZINE 10MG IVP ONCE.
[2024-01-09 17:01] LABS: Specific Gravity, Urine 1.068 (1.005-1.030); UA Manual Slide Review YES; UA Slide Review UA Slide Review Perf
[2024-01-09 17:04] LABS: Bacteria Urine 1+ /hpf; Transitional Epi Cells Urine 0-4 /hpf; WBC Urine 55-80 /hpf (0-5)
[2024-01-09 17:05] LABS: Add Urine Culture? Yes
[2024-01-09 17:06] LABS: INR 2.01 (0.8-1.2)
[2024-01-09 17:09] LABS: Lactic Sepsis W/Reflex 3.2 mmol/L (0.5-2.2)
[2024-01-09 17:12] LABS: Troponin(5th) Baseline 12 ng/L (0-10)
[2024-01-09 17:22] LABS: NT Pro B Type Natriuretic Pept 188 pg/mL (0-450); Procalcitonin 0.06 ng/mL (0-0.5); Thyroid Stimulating Hormone 1.03 uIU/mL (0.27-4.20)
[2024-01-09 17:33] LABS: Magnesium 1.8 mg/dL (1.7-2.3)
--- NOTE | 2024-01-09 18:26 | PM.HP ---
Providers/Chief Complaint Admitting Physician: Denilson Pearce MD Primary Care Provider: CEDRIC Ayon Chief Complaint: HBP/Dizziness History of Present Illness Kadi Hernandez is a 78 year old female with a past medical history of atrial fibrillation, on amiodarone, on Xarelto, hypertension, history of asthma, who presents [facility] due to dizziness. Patient tells me that she feels dizzy especially when changing her head position, she will start to feel dizzy, lightheaded, and room spinning around her and she will feel nauseous. She also tells me that at times she will feel dizzy when getting up from a seated position too quickly,. Denies any chest pain, no palpitations. Does report intermittent shortness of breath with exertion. She does report chest discomfort anterior chest discomfort. She tells me that she is not sure if she is having an asthma attack or a panic attack, as yesterday she had an episode of feeling suddenly short of breath chest palpitations, feeling unwell, that transiently passed, but no reported wheezing. She had another episode here in the emergency room which was short-lived family members at bedside feel that it is more an anxiety attack, she is quite anxious she wants to really go home she tells me, she is anxious about staying here in the hospital. Blood pressure currently 179/126, she status post 10 mg of IV hydralazine, no headache, blurry vision, neck pain, neck stiffness no facial droop no slurring words no focal weakness. She does also tell me that she recently saw her ENT doctor, she has been having bilateral ear pain she has been putting things in her ear, she has been on antibiotics Review of Systems Const: Denies: fever(s) Eyes: Denies: change in vision Card: Denies: chest pain Resp: Denies: dyspnea GI: Denies: abdominal pain : Denies: flank pain Neuro: Reports: weakness in extremities, dizziness and vertigo; Denies: headache(s), numbness in extremities, Slurred speech present or difficulty communicating thoughts Medications/Allergies Home Medications Medication Instructions Recorded Confirmed Last Taken Type fluticasone propionate 50 2 spray intranasal DAILY PRN 09/15/21 12/28/23 Unknown History mcg/actuation nasal Allergy Symptoms spray,suspension (Flonase Allergy Relief) rivaroxaban 20 mg tablet (Xarelto) 20 mg PO DAILY #100 tabs 04/24/23 12/28/23 11/18/23 Rx allopurinol 300 mg tablet 300 mg PO DAILY PRN gout 07/29/23 12/28/23 10/15/23 History atorvastatin 20 mg tablet 20 mg PO BEDTIME 07/29/23 12/28/23 11/19/23 History isosorbide mononitrate 60 mg 60 mg PO QAM 07/29/23 12/28/23 11/18/23 History tablet,extended release 24 hr loratadine 10 mg tablet 10 mg PO DAILY PRN Allergy Symptoms 07/29/23 12/28/23 11/12/23 History primidone 50 mg tablet 50 mg PO BEDTIME 07/29/23 12/28/23 11/17/23 History icosapent ethyl 1 gram capsule 1 g PO DAILY #90 caps 08/07/23 12/28/23 11/18/23 Rx (Vascepa) donepezil 10 mg tablet 10 mg PO DAILY 11/02/23 12/28/23 11/18/23 History ketoconazole 2 % shampoo See Rx Instructions .Route 11/02/23 12/18/23 11/17/23 History .COMPLEX PRN SCALP IRRITATION triamcinolone acetonide 0.1 % 1 applic topical BID 11/02/23 12/18/23 Unknown History topical cream carbidopa 10 mg-levodopa 100 mg 1 tab PO BID #60 tabs 11/04/23 12/28/23 11/18/23 Rx tablet amiodarone 200 mg tablet (Pacerone) See Rx Instructions .Route 11/22/23 12/28/23 Unknown Rx .COMPLEX #90 tabs propranolol 20 mg tablet 10 mg (1/2 x 20 mg) PO TID #90 tabs 11/24/23 12/28/23 Unknown Rx albuterol sulfate 90 mcg/actuation 2 inh inhalation Q8H PRN shortness 12/12/23 12/28/23 Unknown Rx aerosol inhaler of breath or wheezing #8.5 grams cholecalciferol (vitamin D3) 1,250 50,000 unit PO .COMPLEX #14 caps 12/26/23 12/28/23 Unknown Rx mcg (50,000 unit) capsule Allergies Allergy/AdvReac Type Severity Reaction Status Date / Time lisinopril Allergy coughing Verified 01/09/24 12:28 PFSH Acute PFSH: Medical History (Updated 01/09/24 @ 18:31 by Denilson Pearce MD) UTI (urinary tract infection) Bradycardia Dizziness Atrial fibrillation Essential tremor Generalized weakness Lactic acidosis Acute metabolic encephalopathy Sepsis Atrial fibrillation Urinary tract infection Elevated blood pressure reading Palpitation HTN (hypertension) Gout Dyslipidemia Melanoma Surgical History Hx of cataract extraction History of cholecystectomy Status post laparoscopic cholecystectomy (03/30/20) History of removal of ovarian cyst History of carpal tunnel release S/P complete hysterectomy H/O esophagogastroduodenoscopy 1977 H/O colonoscopy 2016 Family History Mother Melanoma Diabetes Stroke Father CAD (coronary artery disease) unknown age of onset, [place] at 62 Cancer Family/Other Cancer Grandmother Cancer Brother Diabetes Denies family history of Clotting disorder Dementia Chronic kidney disease (CKD) Suicide Anesthesia complication Bleeding disorder Lung disease Social History Smoking and tobacco/nicotine status: never used tobacco/nicotine Alcohol intake: never Substance/Drug Use: never Household members: spouse Marital status: Current occupational status: retired Vitals/I&O/Wt Last Vital Signs Temp 97.8 F 01/09/24 12:24 Pulse 63 01/09/24 17:56 Resp 15 01/09/24 13:06 BP 179/126 01/09/24 17:56 Pulse Ox 95 01/09/24 17:56 O2 Del Method Room Air 01/09/24 17:56 Weight last 48 hrs Weight 95.708 kg Physical Exam Const: COMMON NORMALS: no acute distress and patient oriented x3 HENMT: COMMON NORMALS: normocephalic HEAD & SCALP: normocephalic Eye: COMMON NORMALS: Equal, round and reactive pupils present and EOMs intact bilaterally Neck/C-Spine: COMMON NORMALS: no JVD Lymph: LYMPHATIC: no lymphadenopathy noted Resp: COMMON NORMALS: normal respiratory effort, No retractions, No use of accessory muscles and clear to auscultation bilaterally AUSCULTATION: clear to auscultation bilaterally Cardio: COMMON NORMALS: no JVD, regular rate, regular rhythm, S1 normal heart sound present and S2 normal heart sound present RATE: regular rate RHYTHM: regular rhythm HEART SOUNDS: S1 normal heart sound present and S2 normal heart sound present GI: COMMON NORMALS: Normal to inspection, nondistended, normoactive bowel sounds present, Soft to palpation and non-tender Extremity: COMMON NORMALS: no calf tenderness and no pedal edema Neuro: COMMON NORMALS: patient oriented x3, CN's II-XII intact bilaterally and moves all extremities Psych: COMMON NORMALS: mental status grossly normal Data 01/09/24 12:48 01/09/24 12:48 A&P Assessment and plan (1) Dizziness: (2) Benign positional vertigo: (3) UTI (urinary tract infection): (4) Bradycardia: (5) Atrial fibrillation: Qualifiers: Atrial fibrillation type: unspecified Qualified Code(s): I48.91 - Unspecified atrial fibrillation (6) Chest pain: Qualifiers: Chest pain type: unspecified Qualified Code(s): R07.9 - Chest pain, unspecified (7) CAD (coronary artery disease): Qualifiers: Coronary Disease-Associated Artery/Lesion type: [place] artery [place] vs. transplanted heart: [place] heart Associated angina: without angina Qualified Code(s): I25.10 - Atherosclerotic heart disease of [place] coronary artery without angina pectoris (8) Hypertensive urgency: Plan Hypertensive urgency -Blood pressure has not responded to labetalol -Start patient on a Cardene drip -Monitor in ICU Dizziness ? CT head no acute findings CTA head and neck no acute findings -Etiology likely component of benign positional vertigo, will have physical therapy see patient in the morning -Another component could be bradycardia from her amiodarone, will hold amiodarone for now -Another component certainly could be orthostatic hypotension, as currently she is hypertensive we will hold off on doing orthostatic vitals, but check them once her blood pressure is more under control -Another component could be UTI -Another component could be from her tremor, although she has a diagnosis of essential tremor, she is on levodopa carbidopa, Aricept, which can cause lightheadedness and dizziness, and she does have parkinsonian features that can also cause autonomic dysregulation -Primidone could also be a component -Monitor closely Bradycardia ? Could be improved from propranolol, amiodarone, will hold for now His other components could be Aricept, Sinemet, for median Chest pain complaints -Serial EKGs, serial troponin, telemetry monitoring Atrial fibrillation, continue Xarelto UTI, Rocephin Anxiety, Xanax as needed Dehydration, JENN, IV fluids Full code ? Xarelto for DVT prophylaxis Attestations Medical Necessity Statement*: Patient requires hospitalization, inpatient, greater than 2 midnights, for hypertensive urgency, dizziness, urinary tract infection, JENN Diagnoses Dizziness R42 Benign positional vertigo H81.10 UTI (urinary tract infection) N39.0 Bradycardia R00.1 Atrial fibrillation, unspecified type I48.91 Atrial fibrillation type: unspecified Chest pain, unspecified type R07.9 Chest pain type: unspecified Coronary artery disease involving [place] coronary artery of [place] heart without angina pectoris I25.10 Coronary Disease-Associated Artery/Lesion type: [place] artery [place] vs. transplanted heart: [place] heart Associated angina: without angina Hypertensive urgency I16.0
[2024-01-09 18:32] LABS: Reflex Lactate Order REFLEX LACTIC ORDERD
[2024-01-09] MEDS: ALPRAZolam 0.5 mg Tablet 0.25 MG PO (19:10)
--- NOTE | 2024-01-09 20:01 | ECG_ITS ---
[facility] Test Date: 2024-01-09 Pat Name: Kadi Hernandez Department: Room: [facility] Gender: Female Deck Officer: : 1945 Requested By: Denilson Pearce Order Number: [id number] Al MD: Mandie Montano M.D. Measurements Intervals [place] Rate: 61 P: 91 [place]: 132 QRS: 49 QRSD: 98 T: 39 QT: 296 QTc: 300 Interpretive Statements SINUS RHYTHM LOW QRS VOLTAGE IN PRECORDIAL LEADS [QRS DEFLECTION < 1.0 mV IN CHEST LEADS] NONSPECIFIC ST & T-WAVE ABNORMALITY Compared to ECG 01/09/2024 16:41:42 No significant changes Electronically Signed On 01-10-2024 17:39:26 CDT by Mandie Montano M.D. [id number]
[2024-01-09] MEDS: pantoprazole 40 mg SDV IVP (20:19)
[2024-01-09] MEDS: primidone 50 mg Tablet PO (20:19)
[2024-01-09] MEDS: aspirin 81 mg EC Tablet PO (20:19)
[2024-01-09] MEDS: atorvastatin 40 mg Tablet 20 MG PO (20:19)
[2024-01-09] MEDS: cefTRIAXone 1,000 mg SDV 1000 MG IVP (20:19)
[2024-01-09] MEDS: sodium chloride 0.9% 1,000 ML 75 ML IV (20:20)
[2024-01-09] MEDS: nicardipine 20 MG/200 ML PREMIX 50 MG IV (21:35)
[2024-01-09] MEDS: acetaminophen 325 mg Tablet 650 MG PO (21:53)
[2024-01-09 22:25] LABS: Troponin 5 2HR 9.42 ng/L (0-10)
[2024-01-09 22:27] LABS: Troponin 5 2HR Delta -2.58 ABS# (0-10)
[2024-01-09 22:29] LABS: Lactic Acid level (Lactate) 3.6 mmol/L (0.5-2.2)
[2024-01-10] VITALS (72 sets, daily range): BP systolic 88–161; BP diastolic 52–96; PULSE 51–67; RESP 13–22; TEMP 36.4–36.8; O2SAT 91–99; BMI 38.5
[2024-01-10] LABS: Chol HDL Ratio 3.76 mg/dL (0.0-4.40); Cholesterol 158 mg/dL (0-200); HDL Cholesterol 42 mg/dL (60-100); LDL Cholesterol Calculated 63 mg/dL (50-129); Triglycerides 263 mg/dL (0-150)
[2024-01-10 01:08] LABS: Estmated Average Glucose 137; Hemoglobin A1C 6.4 % (4.0-6.0)
[2024-01-10 01:17] LABS: Troponin 5 6HR 13.67 ng/L (0-10); Troponin 5 6HR Delta 1.67 ng/L (0-12)
[2024-01-10 04:39] LABS: Basophils # 0.1 10^3/uL (0.0-0.1); Basophils % 0.9 %; Eosinophils # 0.2 10^3/uL (0.0-0.8); Eosinophils % 2.9 %; Hematocrit 43.2 % (36-47); Lymphocytes # 2.1 10^3/uL (0.8-4.8); Lymphocytes % 28.4 %; Mean Corpuscular HGB Conc 30.6 g/dL (30-55); Mean Corpuscular Hemoglobin 29.9 pg (27-33); Mean Corpuscular Volume 97.7 fl (85-98); Mean Platelet Volume 11.7 fL (7.4-10.4); Monocytes # 0.9 10^3/uL (0.2-0.9); Monocytes % 12.5 %; Neutrophils # 4.12 10^3/uL (1.8-7.7); Nucleated Red Blood Cells % 0 %; Platelet Count 212 10^3/cmm (157-399); Red Blood Count 4.42 10^6/uL (3.85-5.65); Red Cell Distribution Width 13.8 % (12.1-15.1)
[2024-01-10 04:57] LABS: Chloride 106 mmol/L (98-107); Potassium 4.1 mmol/L (3.5-5.1); Sodium 144 mmol/L (136-145)
[2024-01-10] MEDS: isosorbide mononitrate ER 60 mg Tablet PO (05:26)
[2024-01-10 05:55] LABS: Anion Gap 19.1 (5-19); Blood Urea Nitrogen 11 mg/dL (8-23); Calcium 9.3 mg/dL (8.5-10.5); Carbon Dioxide 23 mmol/L (22-29); Creatinine Clr Calc Pharmacy 55.5816; Glucose 136 mg/dL (65-115); Osmolality Calculated 299 mOsm/kg (285-295)
[2024-01-10] MEDS: rivaroxaban 10 mg Tablet 20 MG PO (08:41)
[2024-01-10] MEDS: donepezil 5 MG Tablet 10 MG PO (08:42)
[2024-01-10] MEDS: aspirin 81 mg EC Tablet PO (08:43)
--- NOTE | 2024-01-10 09:24 | P.DS_ITS ---
Discharge Providers Date of Admission: 01/09/24 17:35 Date of Discharge: January 10, 2024 Attending Provider at Admission: Denilson Pearce MD Attending Provider at Discharge: Denilson Pearce MD Primary Care Provider: CEDRIC Ayon Diagnoses at Discharge Discharge Diagnosis (1) Dizziness: Status: Acute (2) Benign positional vertigo: Status: Acute (3) UTI (urinary tract infection): Status: Acute (4) Bradycardia: Status: Acute (5) Atrial fibrillation: Status: Acute Qualifiers: Atrial fibrillation type: unspecified Qualified Code(s): I48.91 - Unspecified atrial fibrillation (6) Chest pain: Status: Acute Qualifiers: Chest pain type: unspecified Qualified Code(s): R07.9 - Chest pain, unspecified (7) CAD (coronary artery disease): Status: Acute Qualifiers: Coronary Disease-Associated Artery/Lesion type: [place] artery [place] vs. transplanted heart: [place] heart Associated angina: without angina Qualified Code(s): I25.10 - Atherosclerotic heart disease of [place] coronary artery without angina pectoris (8) Hypertensive urgency: Status: Acute Reason for Visit Reason for Visit: HBP/Dizziness Hospital Course Hospital Course 78-year-old female who is on propranolol for her tremors, takes amiodarone and Xarelto for A-fib recently had a loop recorder reading which showed sinus pauses and there was some consideration for pacemaker if she becomes symptomatic in future presented to the hospital with dizziness. Patient was endorsing dizziness on change of head position typical vertigo related symptom. She was hypertensive required Cardene drip overnight at the time of evaluation patient is able to walk on her own blood pressure is stable. I have added hydralazine and losartan she already takes Imdur, propranolol and with concern of sinus pauses I would avoid beta-barbra. She takes carbidopa/levodopa for her tremors. CTA head and neck CT head unremarkable. No signs of stroke. Physical Exam Narrative: Nonfocal neuroexam GCS 15 Pleasant cooperative Discharge Data Studies Completed and Pending Completed Studies During Hospitalization Category Date Time Status CT angio headneck* [id number] Stat Cat Scan 01/09/24 12:[address] head wo con* [id number] Stat Cat Scan 01/09/24 12:38 Completed XR chest 1V portable [id number] Stat Exams 01/09/24 12:38 Completed CV. echo complete* [id number] Stat Ultrasound 01/09/24 16:31 Completed Pending at discharge Category Date Time Status Urine Culture Stat Lab 01/09/24 16:17 Received Radiology Impressions Chest X-Ray 01/09/24 12:38 IMPRESSION: No acute pathology or significant interval change. Head CT 01/09/24 12:38 IMPRESSION: There is no hemorrhage or hydrocephalus. Age-appropriate involutional changes are noted. Impression: Head/Neck CTA 01/09/24 12:38 Impression: There is mild artifact proximally due to contrast streak artifact There is no large vessel occlusion. The cervical vertebral and carotid vessels appear maintained as do the [place] of [place] vessels. Small/punctate parenchymal nodules are identified in the upper lungs. These are similar to the previous study. Laboratory Results WBC 7.50 10^3/uL (3.29-11.43) 01/10/24 04:17 RBC 4.42 10^6/uL (3.85-5.65) 01/10/24 04:17 Hgb 13.20 g/dL (11.27-16.99) 01/10/24 04:17 Hct 43.2 % (36-47) 01/10/24 04:17 MCV 97.7 fl (85-98) 01/10/24 04:17 MCH 29.9 pg (27-33) 01/10/24 04:17 MCHC 30.6 g/dL (30-55) 01/10/24 04:17 RDW 13.8 % (12.1-15.1) 01/10/24 04:17 Plt Count 212 10^3/cmm (157-399) 01/10/24 04:17 MPV 11.7 fL (7.4-10.4) H 01/10/24 04:17 Neut % (Auto) 55.0 % 01/10/24 04:17 Lymph % (Auto) 28.4 % 01/10/24 04:17 [place] % (Auto) 12.5 % 01/10/24 04:17 Eos % (Auto) 2.9 % 01/10/24 04:17 Baso % (Auto) 0.9 % 01/10/24 04:17 Neut # (Auto) 4.12 10^3/uL (1.8-7.7) 01/10/24 04:17 Lymph # (Auto) 2.1 10^3/uL (0.8-4.8) 01/10/24 04:17 [place] # (Auto) 0.9 10^3/uL (0.2-0.9) 01/10/24 04:17 Eos # (Auto) 0.2 10^3/uL (0.0-0.8) 01/10/24 04:17 Baso # (Auto) 0.1 10^3/uL (0.0-0.1) 01/10/24 04:17 Nucleated RBC % (auto) 0 % 01/10/24 04:17 Nucleated RBCs # 0.0 /100WBC 01/10/24 04:17 PT 23.50 SECONDS (12.1-14.9) H 01/09/24 16:40 INR 2.01 (0.8-1.2) H 01/09/24 16:40 APTT 35.0 SECONDS (23.9-36.7) 01/09/24 16:40 Sodium 144 mmol/L (136-145) 01/10/24 04:17 Potassium 4.1 mmol/L (3.5-5.1) 01/10/24 04:17 Chloride 106 mmol/L (98-107) 01/10/24 04:17 Carbon Dioxide 23 mmol/L (22-29) 01/10/24 04:17 Anion Gap 19.1 (5-19) H 01/10/24 04:17 BUN 11 mg/dL (8-23) 01/10/24 04:17 Creatinine 0.9 mg/dL (0.5-0.9) 01/10/24 04:17 GFR Calculation Not Reportable 01/10/24 04:17 Glucose 136 mg/dL (65-115) H 01/10/24 04:17 Estimat Average Glucose 137 01/09/24 12:48 Hemoglobin A1c 6.4 % (4.0-6.0) H 01/09/24 12:48 Calculated Osmolality 299 mOsm/kg (285-295) H 01/10/24 04:17 Lactic Acid 3.2 mmol/L (0.5-2.2) H 01/09/24 16:40 Lactic Acid (Sepsis) 3.6 mmol/L (0.5-2.2) H 01/09/24 21:07 Calcium 9.3 mg/dL (8.5-10.5) 01/10/24 04:17 Magnesium 1.8 mg/dL (1.7-2.3) 01/09/24 16:40 Total Bilirubin 0.4 mg/dL (0.15-1.2) 01/09/24 12:48 AST 25 U/L (0-32) 01/09/24 12:48 ALT 14 U/L (0-33) 01/09/24 12:48 Alkaline Phosphatase 57 U/L (35-105) 01/09/24 12:48 Troponin T Baseline 12 ng/L (0-10) H 01/09/24 16:40 Troponin T 120 Minute 9.42 ng/L (0-10) 01/09/24 21:07 Delta Troponin T -2.58 ABS# (0-10) L 01/09/24 21:07 Troponin T Hi Sens 6Hr 13.67 ng/L (0-10) H 01/10/24 00:30 Troponin T Hi Sens 6Hr Delta 1.67 ng/L (0-12) 01/10/24 00:30 C-Reactive Protein 3.0 mg/L (0.0-4.9) 01/09/24 16:40 NT-Pro-B Natriuret Pep 188 pg/mL (0-450) 01/09/24 16:40 Total Protein 7.6 g/dL (6.6-8.7) 01/09/24 12:48 Albumin 4.2 g/dL (3.5-5.2) 01/09/24 12:48 Globulin 3.4 g/dL (1.3-4.6) 01/09/24 12:48 Triglycerides 263 mg/dL (0-150) H 01/09/24 16:40 Cholesterol 158 mg/dL (0-200) 01/09/24 16:40 LDL Cholesterol, Calc 63 mg/dL (50-129) 01/09/24 16:40 HDL Cholesterol 42 mg/dL (60-100) L 01/09/24 16:40 LDL/HDL Ratio 1.50 RATIO (0.00-3.22) 01/09/24 16:40 Cholesterol/HDL Ratio 3.76 mg/dL (0.0-4.40) 01/09/24 16:40 Procalcitonin 0.06 ng/mL (0-0.5) 01/09/24 16:40 TSH 1.03 uIU/mL (0.27-4.20) 01/09/24 16:40 Urine Color Yellow (Yellow) 01/09/24 16:17 Urine Appearance Cloudy (CLEAR) A 01/09/24 16:17 Urine pH 5.0 (5-7) 01/09/24 16:17 Ur Specific [place] 1.068 (1.005-1.030) H 01/09/24 16:17 Urine Protein Trace (Negative) A 01/09/24 16:17 Urine Glucose (UA) Negative (Normal) 01/09/24 16:17 Urine Ketones Negative (Negative) 01/09/24 16:17 Urine Blood Negative (Negative) 01/09/24 16:17 Urine Nitrate Negative (Negative) 01/09/24 16:17 Urine Bilirubin Negative (Negative) 01/09/24 16:17 Urine Urobilinogen 0.2 mg/dL (Negative) 01/09/24 16:17 Ur Leukocyte Esterase 2+ (Negative) A 01/09/24 16:17 Urine RBC 5-10 /hpf (0-2) H 01/09/24 16:17 Urine WBC 55-80 /hpf (0-5) H 01/09/24 16:17 Ur Squamous Epith Cells 5-10 /hpf (0-5) H 01/09/24 16:17 Ur Transition Epith Cell 0-4 /hpf 01/09/24 16:17 Amorphous Sediment Not Reportable 01/09/24 16:17 Urine Bacteria 1+ /hpf (NONE) H 01/09/24 16:17 Urine Mucus None /hpf 01/09/24 16:17 Vitals Last Vital Signs Temp 97.5 F L 01/10/24 07:40 Pulse 59 L 01/10/24 09:19 Resp 17 01/10/24 09:19 BP 161/96 01/10/24 08:10 Pulse Ox 95 01/10/24 09:19 O2 Del Method Room Air 01/10/24 09:19 Discharge Plan Discharge Patient Disposition: Home Condition: Stable Prescriptions: New losartan 50 mg tablet 25 mg PO DAILY Qty: 60 2RF hydralazine 10 mg tablet 10 mg PO BID Qty: 60 2RF Continued fluticasone propionate [Flonase Allergy Relief] 50 mcg/actuation spray,suspension 2 spray intranasal DAILY PRN (Reason: Allergy Symptoms) Rx Instructions: administer into each nostril Xarelto 20 mg tablet 20 mg PO DAILY Qty: 100 3RF albuterol sulfate 90 mcg/actuation HFA aerosol inhaler 2 inh inhalation Q8H PRN (Reason: shortness of breath or wheezing) Qty: 8.5 1RF Vascepa 1 gram capsule 1 g PO DAILY Qty: 90 3RF cholecalciferol (vitamin D3) 1,250 mcg (50,000 unit) capsule 50,000 unit PO .COMPLEX Qty: 14 5RF Rx Instructions: 50,000 units orally weekly; primidone 50 mg tablet 50 mg PO BEDTIME atorvastatin 20 mg tablet 20 mg PO BEDTIME isosorbide mononitrate 60 mg tablet extended release 24 hr 60 mg PO QAM allopurinol 300 mg tablet 300 mg PO DAILY PRN (Reason: gout) loratadine 10 mg tablet 10 mg PO DAILY PRN (Reason: Allergy Symptoms) Pacerone 200 mg Tablet See Rx Instructions .ROUTE .COMPLEX Qty: 90 0RF Rx Instructions: Take 400 mg twice daily for 1 week, then 200 mg twice daily. propranolol 20 mg Tablet 10 mg PO TID Qty: 90 0RF ketoconazole 2 % shampoo See Rx Instructions .ROUTE .COMPLEX PRN (Reason: SCALP IRRITATION) Rx Instructions: APPLY TOPICALLY TO THE AFFECTED AREA(S), LATHER, LEAVE FOR 5 MINUTES & THEN RINSE OFF ONCE DAILY. donepezil 10 mg tablet 10 mg PO DAILY triamcinolone acetonide 0.1 % cream 1 applic TOPICAL BID carbidopa-levodopa 10-100 mg tablet 1 tab PO BID Qty: 60 0RF Discharge Orders: Discharge Order (Routine); Ordered 01/10/24 Ordered By: Wendie Jin Referrals: Bonnie Fleming FNP [Primary Care Provider] - Patient Instructions: Opioid Safety Discharge Attestations Time Spent in Discharge Care*: greater than 30 min Quality Metrics Clinical Quality Measures [ No reported AMI, CVA or VTE this stay] Coding Level of Care Code Acute Code for Chg Fwd Diagnoses Dizziness R42 Benign positional vertigo H81.10 UTI (urinary tract infection) N39.0 Bradycardia R00.1 Atrial fibrillation, unspecified type I48.91 Atrial fibrillation type: unspecified Chest pain, unspecified type R07.9 Chest pain type: unspecified Coronary artery disease involving [place] coronary artery of [place] heart without angina pectoris I25.10 Coronary Disease-Associated Artery/Lesion type: [place] artery [place] vs. transplanted heart: [place] heart Associated angina: without angina Hypertensive urgency I16.0
[2024-01-10] MEDS: losartan 50 mg Tablet PO (10:36)
== END 2024-01-10 10:44 | disposition home or self-care (01) ==
LOC: ER 17:31 → MEDSURG 17:36 → ICU 18:17
PROVIDERS: Admitting Provider Family Medicine; Emergency Provider Emergency Medicine; PCP Nurse Practitioner Family; Visit Provider Family Medicine
DX: H81.10 Benign paroxysmal vertigo, unspecified ear (principal); N39.0 Urinary tract infection, site not specified; R00.1 Bradycardia, unspecified; I48.91 Unspecified atrial fibrillation; R07.9 Chest pain, unspecified; I25.10 Atherosclerotic heart disease of native coronary artery without angina pectoris; I16.0 Hypertensive urgency; Z79.01 Long term (current) use of anticoagulants; J45.909 Unspecified asthma, uncomplicated; F41.9 Anxiety disorder, unspecified; E86.0 Dehydration; I10 Essential (primary) hypertension
CPT/HCPCS: 36415; 70450; 70496; 70498; 71045; 80048; 80053; 80061; 81003; 81015; 83036; 83605; 83735; 83880; 84145; 84443; 84484; 85025; 85610; 85730; 86140; 87086; 93005; 93306; 94664; 96365; 96366; 96375; 97116; 97162; 99285; G0378; J0360; J0696; J2470; J7030; Q9967

== ENCOUNTER → 2024-01-10 10:19 | Outpatient (BNVA) | payer MEDICARE, SELFPAY | PROVIDERS: PCP Nurse Practitioner Family; Visit Provider Internal Medicine Cardiovascular Disease | DX: Z45.09 Encounter for adjustment and management of other cardiac device (principal) | CPT/HCPCS: 93298 ==

== ENCOUNTER 2024-01-11 10:42 | Observation (INO) | payer MEDICARE, SELFPAY ==
[2024-01-11] VITALS (11 sets, daily range): BP systolic 135–165; BP diastolic 68–89; PULSE 61–86; RESP 16–94; O2SAT 92–96; BMI 40.2; BMI 39.2
--- NOTE | 2024-01-11 10:44 | ECG_ITS ---
[facility] Test Date: 2024-01-11 Pat Name: Kadi Hernandez Department: Room: Gender: Female Financial Risk Manager: : 1945 Requested By: Luann Zepeda Order Number: [id number] MD: Julian Pitts M.D. Measurements Intervals Reading Rate: 125 P: 42 DC: 175 QRS: 15 QRSD: 144 T: 0 QT: 204 QTc: 294 Interpretive Statements ATRIAL FLUTTER INTRAVENTRICULAR CONDUCTION DELAY [130+ ms QRS DURATION] Compared to ECG 01/09/2024 21:20:31 Ventricular premature complex(es) now present Intraventricular conduction delay now present Sinus rhythm no longer present T-wave abnormality no longer present Electronically Signed On 01-11-2024 14:43:04 CDT by Julian Pitts M.D. [id number]
--- NOTE | 2024-01-11 10:47 | XR_ITS ---
WS: [id number] Examination: XR chest 1V portable [id number] Reason for Exam: sob Date: 01/11/2024 Comparison: 01/09/2024 Findings: The heart is prominent in size. The mediastinum is not widened. There is no pulmonary edema or pleural effusion. Linear atelectasis is suspected in the left base. A subcutaneous recording device is identified. XR/XR chest 1V portable [id number] Impression: There is cardiomegaly. I see no failure. Minimal linear atelectasis in the left base is suspected.
--- NOTE | 2024-01-11 10:59 | CT_ITS ---
WS: [id number] CT HEAD NONCONTRAST HISTORY: stack/weakness TECHNIQUE: Contiguous axial imaging performed through the brain in 2.5 mm imaging. Bone and soft tiss ue windows. Sagittal and coronal reformats reviewed. All CT scans at [facility] use at least one of these dose optimization techniques: automated exposure control; mA and/or kV adjustment per pa tient size (includes targeted exams where dose is matched to clinical indication); or iterative recon struction. DLP: 644.98 mGy.cm COMPARISON: 01/09/2024 No acute intracranial hemorrhage, midline shift or mass effect. Mild symmetric atrophy and small vessel disease. No large territory infarct. Ventricles: Normal size with no hydrocephalus. No inferior displacement the cerebellar tonsils. Paranasal sinuses: As visualized are clear. Mastoid air cells: Well pneumatized. Calvarium and scalp: Skull is intact with no soft tissue edema or swelling. CT/CT head wo con* [id number] IMPRESSION: 1. Mild volume loss with cerebral atrophy and small vessel disease. Similar to the prior study of 01/09/2024. 2. No acute interval change.
[2024-01-11 11:05] LABS: Basophils # 0.1 10^3/uL (0.0-0.1); Basophils % 0.9 %; Eosinophils # 0.2 10^3/uL (0.0-0.8); Hematocrit 45.6 % (36-47); Lymphocytes # 1.8 10^3/uL (0.8-4.8); Lymphocytes % 23.6 %; Mean Corpuscular HGB Conc 31.1 g/dL (30-55); Mean Corpuscular Hemoglobin 29.7 pg (27-33); Mean Corpuscular Volume 95.4 fl (85-98); Mean Platelet Volume 11.3 fL (7.4-10.4); Monocytes # 0.8 10^3/uL (0.2-0.9); Neutrophils # 4.83 10^3/uL (1.8-7.7); Neutrophils % 63.2 %; Nucleated Red Blood Cells % 0 %; Platelet Count 226 10^3/cmm (157-399); Red Blood Count 4.78 10^6/uL (3.85-5.65); Red Cell Distribution Width 13.7 % (12.1-15.1); White Blood Count 7.63 10^3/uL (3.29-11.43)
--- NOTE | 2024-01-11 11:12 | ED_ITS ---
HPI - Chest Pain 2 General: Chief Complaint: Chest Pain Stated Complaint: Afib,Sob,Chest Pains Time Seen by Provider: 01/11/24 10:53 Source: patient Mode of arrival: ambulatory Limitations: altered mental status History of Present Illness: 78-year-old female who had seen 3 days a go she was admitted with confusion on A- fib with RVR and weakness. Family states she had some slight improvement of discharge yesterday but continued to have the confusion weakness that worsened again this morning they states this has been going on for days though she has had no just abrupt acute change in symptoms. Associated symptoms: Reports palpitations; Deny abdominal pain, dyspnea, fever(s), nausea or vomiting Related Data Home Medications Medication Instructions Recorded Confirmed fluticasone propionate 50 2 spray intranasal DAILY PRN 09/15/21 01/11/24 mcg/actuation nasal Allergy Symptoms spray,suspension (Flonase Allergy Relief) allopurinol 300 mg tablet 300 mg PO DAILY PRN gout 07/29/23 01/11/24 atorvastatin 20 mg tablet 20 mg PO BEDTIME 07/29/23 01/11/24 isosorbide mononitrate 60 mg 60 mg PO QAM 07/29/23 01/11/24 tablet,extended release 24 hr loratadine 10 mg tablet 10 mg PO DAILY PRN Allergy Symptoms 07/29/23 01/11/24 primidone 50 mg tablet 50 mg PO BEDTIME 07/29/23 01/11/24 donepezil 10 mg tablet 10 mg PO DAILY 11/02/23 01/11/24 ketoconazole 2 % shampoo See Rx Instructions .Route 11/02/23 01/11/24 .COMPLEX PRN SCALP IRRITATION triamcinolone acetonide 0.1 % 1 applic topical BID 11/02/23 01/11/24 topical cream ketoconazole 2 % topical cream See Rx Instructions .Route .COMPLEX 01/11/24 01/11/24 Previous Rx's Medication Instructions Recorded rivaroxaban 20 mg tablet (Xarelto) 20 mg PO DAILY #100 tabs 04/24/23 icosapent ethyl 1 gram capsule 1 g PO DAILY #90 caps 08/07/23 (Vascepa) carbidopa 10 mg-levodopa 100 mg 1 tab PO BID #60 tabs 11/04/23 tablet albuterol sulfate 90 mcg/actuation 2 inh inhalation Q8H PRN shortness 12/12/23 aerosol inhaler of breath or wheezing #8.5 grams cholecalciferol (vitamin D3) 1,250 50,000 unit PO .COMPLEX #14 caps 12/26/23 mcg (50,000 unit) capsule hydralazine 10 mg tablet 10 mg PO BID #60 tabs 01/10/24 losartan 50 mg tablet 25 mg (1/2 x 50 mg) PO DAILY #60 01/10/24 tabs Allergies Allergy/AdvReac Type Severity Reaction Status Date / Time lisinopril Allergy coughing Verified 01/09/24 12:28 Review of Systems 2 Const: Denies: fever(s), chills, body aches or change in appetite ENMT: Denies: throat pain or dental pain Card: Reports: palpitations; Denies: chest pain Resp: Denies: dyspnea GI: Denies: abdominal pain, nausea, vomiting or diarrhea Musc: Denies: neck pain or back pain Skin/Breast: Denies: rash Neuro: Reports: confusion; Denies: headache(s) PFSH ED 2 PFSH: Medical History Hypertensive urgency Benign positional vertigo Hypertension Generalized weakness Chest pain UTI (urinary tract infection) Bradycardia CAD (coronary artery disease) Dizziness Atrial fibrillation Essential tremor Generalized weakness Lactic acidosis Acute metabolic encephalopathy Sepsis Atrial fibrillation Urinary tract infection Elevated blood pressure reading Palpitation HTN (hypertension) Gout Dyslipidemia Melanoma Surgical History Hx of cataract extraction History of cholecystectomy Status post laparoscopic cholecystectomy (03/30/20) History of removal of ovarian cyst History of carpal tunnel release S/P complete hysterectomy H/O esophagogastroduodenoscopy 1977 H/O colonoscopy 2016 Family History Mother Melanoma Diabetes Stroke Father CAD (coronary artery disease) unknown age of onset, [place] at 62 Cancer Family/Other Cancer Grandmother Cancer Brother Diabetes Denies family history of Clotting disorder Dementia Chronic kidney disease (CKD) Suicide Anesthesia complication Bleeding disorder Lung disease Social History Smoking and tobacco/nicotine status: never used tobacco/nicotine Alcohol intake: never Substance/Drug Use: never Household members: spouse Marital status: Current occupational status: retired Physical Exam 2 Const: COMMON NORMALS: alert; negative for patient oriented x3 EXAM LIMITATIONS: altered mental status G ENERAL APPEARANCE: ill appearing ORIENTATION/CONSCIOUSNESS: Yes oriented to person; not oriented to place and not oriented to time HENMT: COMMON NORMALS: normocephalic and atraumatic HEAD & SCALP: n ormocephalic and atraumatic Eye: COMMON NORMALS: Equal, round and reactive pupils present and EOMs intact bilaterally PUPIL: Yes Equal, round and reactive pupils present Neck/C-Spine: COMMON NORMALS: full ROM and supple Chest: COMMONS NORMALS: normal inspection of the chest Resp: COMMON NORMALS: normal respiratory effort, No retractions, No use of accessory muscles and clear to auscultation bilaterally AUSCULTATION: clear to auscultation bilaterally Cardio: COMMON NORMALS: No murmurs present (Cardio) RATE: tachycardic R HYTHM: abnormal rhythm irregularly irregular GI: COMMON NORMALS: Normal to inspection, nondistended, normoactive bowel sounds present, Soft to palpation, non-tender and no masses PALPATION: Yes Soft to palpation Extremity: COMMON NORMALS: normal to inspection and full ROM Neuro: COMMON NORMALS: moves all extremities; negative for patient oriented x3 SENSORIUM/ORIENTATION: Yes alert, Yes oriented to person, No oriented to place and No oriented to time OTHER: Patient has diffuse weakness with confusion no focal deficit noted here Psych: COMMON NORMALS: cooperative Skin: COMMON NORMALS: no rashes or lesions noted and no wounds GENERAL SKIN EXAM: no rashes or lesions noted Course 2 Vital Signs: Vital signs: Vital Signs Pulse Rate 86 01/11/24 13:19 Respiratory Rate 17 01/11/24 12:57 Blood Pressure 151/87 01/11/24 13:19 Pulse Oximetry 96 01/11/24 13:19 Oxygen Delivery Me thod Room Air 01/11/24 12:57 MDM - Chest Pain Medical Decision Making Patient presented here with chest pain along with some confusion her symptoms been going on for days from when I admitted her 3 days ago. She has no other acute changes in her mentation or neuroexam head CT is unchanged I did speak to hospitalist who came and seen the patient and is going to admit at this time Medical Records I reviewed the patient's medical records. Lab Data I reviewed the patient's lab results. 01/11/24 10:59 01/11/24 10:59 Radiology Impressions Chest X-Ray 01/11/24 10:47 Impression: There is cardiomegaly. I see no failure. Minimal linear atelectasis in the left base is suspected. Head CT 01/11/24 10:59 IMPRESSION: 1. Mild volume loss with cerebral atrophy and small vessel disease. Similar to the prior study of 01/09/2024. 2. No acute interval change. Laboratory Results WBC 7.63 10^3/uL (3.29-11.43) 01/11/24 10:59 RBC 4.78 10^6/uL (3.85-5.65) 01/11/24 10:59 Hgb 14.20 g/dL (11.27-16.99) 01/11/24 10:59 Hct 45.6 % (36-47) 01/11/24 10:59 MCV 95.4 fl (85-98) 01/11/24 10:59 MCH 29.7 pg (27-33) 01/11/24 10:59 MCHC 31.1 g/dL (30-55) 01/11/24 10:59 RDW 13.7 % (12.1-15.1) 01/11/24 10:59 Plt Count 226 10^3/cmm (157-399) 01/11/24 10:59 MPV 11.3 fL (7.4-10.4) H 01/11/24 10:59 Neut % (Auto) 63.2 % 01/11/24 10:59 Lymph % (Auto) 23.6 % 01/11/24 10:59 [place] % (Auto) 10.0 % 01/11/24 10:59 Eos % (Auto) 2.0 % 01/11/24 10:59 Baso % (Auto) 0.9 % 01/11/24 10:59 Neut # (Auto) 4.83 10^3/uL (1.8-7.7) 01/11/24 10:59 Lymph # (Auto) 1.8 10^3/uL (0.8-4.8) 01/11/24 10:59 [place] # (Auto) 0.8 10^3/uL (0.2-0.9) 01/11/24 10:59 Eos # (Auto) 0.2 10^3/uL (0.0-0.8) 01/11/24 10:59 Baso # (Auto) 0.1 10^3/uL (0.0-0.1) 01/11/24 10:59 Nucleated RBC % (auto) 0 % 01/11/24 10:59 Nucleated RBCs # 0.0 /100WBC 01/11/24 10:59 PT 34.40 SECONDS (12.1-14.9) H 01/11/24 10:59 INR 3.25 (0.8-1.2) H 01/11/24 10:59 Sodium 140 mmol/L (136-145) 01/11/24 10:59 Potassium 4.5 mmol/L (3.5-5.1) 01/11/24 10:59 Chloride 97 mmol/L (98-107) L 01/11/24 10:59 Carbon Dioxide 29 mmol/L (22-29) 01/11/24 10:59 Anion Gap 18.5 (5-19) 01/11/24 10:59 BUN 12 mg/dL (8-23) 01/11/24 10:59 Creatinine 1.0 mg/dL (0.5-0.9) H 01/11/24 10:59 GFR Calculation Not Reportable 01/11/24 10:59 Glucose 138 mg/dL (65-115) H 01/11/24 10:59 Calculated Osmolality 292 mOsm/kg (285-295) 01/11/24 10:59 Calcium 10.0 mg/dL (8.5-10.5) 01/11/24 10:59 Total Bilirubin 0.7 mg/dL (0.15-1.2) 01/11/24 10:59 AST 36 U/L (0-32) H 01/11/24 10:59 ALT < 5 U/L (0-33) 01/11/24 10:59 Alkaline Phosphatase 59 U/L (35-105) 01/11/24 10:59 Troponin T Baseline 13 ng/L (0-10) H 01/11/24 10:59 NT-Pro-B Natriuret Pep 158 pg/mL (0-450) 01/11/24 10:59 Total Protein 8.3 g/dL (6.6-8.7) 01/11/24 10:59 Albumin 4.4 g/dL (3.5-5.2) 01/11/24 10:59 Globulin 3.9 g/dL (1.3-4.6) 01/11/24 10:59 Urine Color Yellow (Yellow) 01/11/24 12:52 Urine Appearance Cloudy (CLEAR) A 01/11/24 12:52 Urine pH 5.0 (5-7) 01/11/24 12:52 Ur Specific [place] 1.015 (1.005-1.030) 01/11/24 12:52 Urine Protein Trace (Negative) A 01/11/24 12:52 Urine Glucose (UA) Negative (Normal) 01/11/24 12:52 Urine Ketones Negative (Negative) 01/11/24 12:52 Urine Blood Negative (Negative) 01/11/24 12:52 Urine Nitrate Negative (Negative) 01/11/24 12:52 Urine Bilirubin Negative (Negative) 01/11/24 12:52 Urine Urobilinogen 0.2 mg/dL (Negative) 01/11/24 12:52 Ur Leukocyte Esterase 3+ (Negative) A 01/11/24 12:52 Amorphous Sediment Not Reportable 01/11/24 12:52 All radiology interpretation(s) finalized by discharge EKG Data EKG 1: I personally reviewed and interpreted this EKG as follows: EKG interpretation date: 01/11/24 EKG interpretation time: 10:44 Interpretation: afib with rvr hr [address] elevation qrs 144 qtc 278 EKG 2: I personally reviewed and interpreted this EKG as follows: EKG interpretation date: 01/11/24 EKG interpretation time: 13:02 Interpretation: nsr hr [address] elevation qrs 84 qtc 454 Discharge Plan Discharge Patient Disposition: Admitted As Inpatient Clinical Impression: Altered mental status, Chest pain Condition: Stable Prescriptions: No Action fluticasone propionate [Flonase Allergy Relief] 50 mcg/actuation spray,suspension 2 spray intranasal DAILY PRN (Reason: Allergy Symptoms) Rx Instructions: administer into each nostril Xarelto 20 mg tablet 20 mg PO DAILY Qty: 100 3RF albuterol sulfate 90 mcg/actuation HFA aerosol inhaler 2 inh inhalation Q8H PRN (Reason: shortness of breath or wheezing) Qty: 8.5 1RF Vascepa 1 gram capsule 1 g PO DAILY Qty: 90 3RF cholecalciferol (vitamin D3) 1,250 mcg (50,000 unit) capsule 50,000 unit PO .COMPLEX Qty: 14 5RF Rx Instructions: 50,000 units orally weekly; primidone 50 mg tablet 50 mg PO BEDTIME atorvastatin 20 mg tablet 20 mg PO BEDTIME isosorbide mononitrate 60 mg tablet extended release 24 hr 60 mg PO QAM allopurinol 300 mg tablet 300 mg PO DAILY PRN (Reason: gout) loratadine 10 mg tablet 10 mg PO DAILY PRN (Reason: Allergy Symptoms) losartan 50 mg tablet 25 mg PO DAILY Qty: 60 2RF hydralazine 10 mg tablet 10 mg PO BID Qty: 60 2RF ketoconazole 2 % cream See Rx Instructions .ROUTE .COMPLEX Rx Instructions: APPLY TWICE DAILY TO RED/DRY AREAS ON EARS NEEDED. ketoconazole 2 % shampoo See Rx Instructions .ROUTE .COMPLEX PRN (Reason: SCALP IRRITATION) Rx Instructions: APPLY TOPICALLY TO THE AFFECTED AREA(S), LATHER, LEAVE FOR 5 MINUTES & THEN RINSE OFF ONCE DAILY. donepezil 10 mg tablet 10 mg PO DAILY triamcinolone acetonide 0.1 % cream 1 applic TOPICAL BID carbidopa-levodopa 10-100 mg tablet 1 tab PO BID Qty: 60 0RF Referrals: Bonnie Fleming FNP [Primary Care Provider] - Coding Level of Care Code ED Mailroom Manager for Hakeem Sebastian
[2024-01-11 11:18] LABS: INR 3.25 (0.8-1.2)
[2024-01-11 11:26] LABS: Troponin(5th) Baseline 13 ng/L (0-10)
[2024-01-11 11:35] LABS: Alanine Aminotransferase < 5 U/L (0-33); Albumin Level 4.4 g/dL (3.5-5.2); Alkaline Phosphatase 59 U/L (35-105); Anion Gap 18.5 (5-19); Aspartate Amino Transferase 36 U/L (0-32); Blood Urea Nitrogen 12 mg/dL (8-23); Carbon Dioxide 29 mmol/L (22-29); Chloride 97 mmol/L (98-107); Creatinine Clr Calc Pharmacy 51.2185; Globulin 3.9 g/dL (1.3-4.6); Glucose 138 mg/dL (65-115); NT Pro B Type Natriuretic Pept 158 pg/mL (0-450); Osmolality Calculated 292 mOsm/kg (285-295); Potassium 4.5 mmol/L (3.5-5.1); Sodium 140 mmol/L (136-145); Total Bilirubin 0.7 mg/dL (0.15-1.2); Total Protein 8.3 g/dL (6.6-8.7)
--- NOTE | 2024-01-11 11:45 | PC.NURSE ---
pt bd currently 138/68. Dr. Zepeda notified of this nurse not giving labetalol at this time.
--- NOTE | 2024-01-11 12:12 | PC.NURSE ---
on alarm security or surveillance monitor 1130.
--- NOTE | 2024-01-11 13:02 | ECG_ITS ---
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 Measurements Intervals [place] Rate: 64 P: 64 MO: 145 QRS: 19 QRSD: 84 T: 40 QT: 445 QTc: 460 Interpretive Statements SINUS RHYTHM LOW QRS VOLTAGE IN PRECORDIAL LEADS [QRS DEFLECTION < 1.0 mV IN CHEST LEADS] Compared to ECG 01/11/2024 10:44:32 Low QRS voltage now present Sinus tachycardia no longer present Ventricular premature complex(es) no longer present Intraventricular conduction delay no longer present Electronically Signed On 01-11-2024 14:45:19 CDT by Julian Pitts M.D. [id number]
--- NOTE | 2024-01-11 13:22 | P.HP_ITS ---
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 Pitts wanted to evaluate for permanent pacemaker if she gets more sinus pauses, patient was recently discharged from the hospital after management of hypertensive urgency, at home she became confused, became dizzy and was about to pass out while on her phone. Family brought her in. In the ER she is hemodynamically stable but required labetalol IV however likely her heart rate has not dropped significantly. I have put her on telemetry requested ceftriaxone for possible UTI. If you notice more sinus pauses overnight may need cardiology evaluation in the morning Please note recently we have discontinued propranolol which she was taking for resting tremors, she will still take Sinemet for her tremors but never had diagnosis of Parkinson's. She has had multiple admissions in the last 4 to 6 weeks. Patient is not confused at all at the time of evaluation She is eager to return home she was asking me to send her home Family was concerned if she will be considered safe to return home versus SNF Review of Systems 2 Const: Denies: fever(s) Eyes: Denies: change in vision ENMT: Denies: throat pain Card: Denies: chest pain Resp: Denies: dyspnea GI: Denies: abdominal pain Medications/Allergies Home Medications Medication Instructions Recorded Confirmed Last Taken Type fluticasone propionate 50 2 spray intranasal DAILY PRN 09/15/21 01/11/24 Unknown History mcg/actuation nasal Allergy Symptoms spray,suspension (Flonase Allergy Relief) rivaroxaban 20 mg tablet (Xarelto) 20 mg PO DAILY #100 tabs 04/24/23 01/11/24 01/11/24 Rx allopurinol 300 mg tablet 300 mg PO DAILY PRN gout 07/29/23 01/11/24 10/15/23 History atorvastatin 20 mg tablet 20 mg PO BEDTIME 07/29/23 01/11/24 01/10/24 History isosorbide mononitrate 60 mg 60 mg PO QAM 07/29/23 01/11/24 01/11/24 History tablet,extended release 24 hr loratadine 10 mg tablet 10 mg PO DAILY PRN Allergy Symptoms 07/29/23 01/11/24 11/12/23 History primidone 50 mg tablet 50 mg PO BEDTIME 07/29/23 01/11/24 01/10/24 History icosapent ethyl 1 gram capsule 1 g PO DAILY #90 caps 08/07/23 01/11/24 01/11/24 Rx (Vascepa) donepezil 10 mg tablet 10 mg PO DAILY 11/02/23 01/11/24 01/11/24 History ketoconazole 2 % shampoo See Rx Instructions .Route 11/02/23 01/11/24 11/17/23 History .COMPLEX PRN SCALP IRRITATION triamcinolone acetonide 0.1 % 1 applic topical BID 11/02/23 01/11/24 Unknown History topical cream carbidopa 10 mg-levodopa 100 mg 1 tab PO BID #60 tabs 11/04/23 01/11/24 01/10/24 Rx tablet albuterol sulfate 90 mcg/actuation 2 inh inhalation Q8H PRN shortness 12/12/23 01/11/24 Unknown Rx aerosol inhaler of breath or wheezing #8.5 grams cholecalciferol (vitamin D3) 1,250 50,000 unit PO .COMPLEX #14 caps 12/26/23 01/11/24 Unknown Rx mcg (50,000 unit) capsule hydralazine 10 mg tablet 10 mg PO BID #60 tabs 01/10/24 01/11/24 01/11/24 Rx losartan 50 mg tablet 25 mg (1/2 x 50 mg) PO DAILY #60 01/10/24 01/11/24 Unknown Rx tabs ketoconazole 2 % topical cream See Rx Instructions .Route .COMPLEX 01/11/24 01/11/24 Unknown History Allergies Allergy/AdvReac Type Severity Reaction Status Date / Time lisinopril Allergy coughing Verified 01/09/24 12:28 PFSH Acute 2 PFSH: Medical History Hypertensive urgency Benign positional vertigo Hypertension Generalized weakness Chest pain UTI (urinary tract infection) Bradycardia CAD (coronary artery disease) Dizziness Atrial fibrillation Essential tremor Generalized weakness Lactic acidosis Acute metabolic encephalopathy Sepsis Atrial fibrillation Urinary tract infection Elevated blood pressure reading Palpitation HTN (hypertension) Gout Dyslipidemia Melanoma Surgical History Hx of cataract extraction History of cholecystectomy Status post laparoscopic cholecystectomy (03/30/20) History of removal of ovarian cyst History of carpal tunnel release S/P complete hysterectomy H/O esophagogastroduodenoscopy 1977 H/O colonoscopy 2017 Family History Mother Melanoma Diabetes Stroke Father CAD (coronary artery disease) unknown age of onset, [place] at 62 Cancer Family/Other Cancer Grandmother Cancer Brother Diabetes Denies family history of Clotting disorder Dementia Chronic kidney disease (CKD) Suicide Anesthesia complication Bleeding disorder Lung disease Social History Smoking and tobacco/nicotine status: never used tobacco/nicotine Alcohol intake: never Substance/Drug Use: never Household members: spouse Marital status: Current occupational status: retired Vitals/I&O/Wt Last Vital Signs Pulse 86 01/11/24 13:19 Resp 17 01/11/24 12:57 BP 151/87 01/11/24 13:19 Pulse Ox 96 01/11/24 13:19 O2 Del Method Room Air 01/11/24 12:57 Weight last 48 hrs Weight 99.79 kg Physical Exam 2 Narrative: Euvolemic NIH 0 GCS 15 S1, S2 sinus rhythm Currently on room air No sign of confusion at all Abdomen soft Patient dinner Pupils are symmetrical No facial droop Patient is alert oriented x 3 Data 01/11/24 10:59 01/11/24 10:59 A&P Assessment and plan (1) Benign hypertension: (2) Exertional shortness of breath: (3) Altered mental status: (4) Essential tremor: (5) UTI (urinary tract infection): Plan Dizziness and confusion Could be related to UTI Start ceftriaxone Patient is afebrile no sign of sepsis Rule out sinus pauses and bradycardia related symptoms Will monitor on telemetry overnight avoid beta-barbra and propranolol Patient may need cardiac evaluation before she goes home in case of more sinus pauses on telemetry overnight Essential tremors patient takes Sinemet propranolol discontinued Dementia: Continue donepezil Hypertensive urgency continue losartan, hydralazine and Imdur avoid AV kimberlee blocking agents A-fib without RVR: I would hold off on Xarelto in case patient would need pacemaker evaluation I will put her on therapeutic Lovenox Amiodarone discontinued as well Full code Patient does not want to go to SNF however family is concerned about her safety at home Patient is very eager to return home once cleared Cardiac diet Attestations 2 Medical Necessity Statement*: Anticipating discharge within 40 hours Diagnoses Benign hypertension I10 Exertional shortness of breath R06.02 Altered mental status R41.82 Essential tremor G25.0 UTI (urinary tract infection) N39.0
[2024-01-11 13:28] LABS: Charge for UA Resulting for Rev
[2024-01-11 13:35] LABS: Bilirubin Urine Negative (Negative); Blood Urine Negative (Negative); Glucose Urine UA Negative (Normal); Ketones Urine Negative (Negative); Leukocyte Esterase Urine 3+ (Negative); Nitrate Urine Negative (Negative); Protein Urine Trace (Negative); Specific Gravity, Urine 1.015 (1.005-1.030); Urine Appearance Cloudy (CLEAR); Urine Color Yellow (Yellow); Urobilinogen Urine 0.2 mg/dL (Negative)
[2024-01-11 13:42] LABS: UA Manual Slide Review YES; UA Slide Review UA Slide Review Perf
[2024-01-11 13:43] LABS: Troponin 5 2HR 12.44 ng/L (0-10)
[2024-01-11 13:45] LABS: Add Urine Culture? Yes; Bacteria Urine 1+ /hpf; Mucus Urine TRACE /hpf; RBC Urine 0-4 /hpf (0-2); Transitional Epi Cells Urine 0-4 /hpf; WBC Urine 55-80 /hpf (0-5)
[2024-01-11 13:45] LABS: Troponin 5 2HR Delta -0.56 ABS# (0-10)
[2024-01-11 18:18] LABS: Troponin 5 6HR 9.52 ng/L (0-10)
[2024-01-11 18:19] LABS: Troponin 5 6HR Delta -3.48 ng/L (0-12)
[2024-01-11] MEDS: cefTRIAXone 1,000 mg SDV 1000 MG IVP (18:37)
[2024-01-11] MEDS: hyDRALAzine 10 mg Tablet PO (18:37)
[2024-01-11] MEDS: enoxaparin 100 mg/mL Syringe SUBCUT (21:11)
[2024-01-11] MEDS: acetaminophen 500 mg Tablet PO (21:11)
[2024-01-11] MEDS: hyDROXYzine 25 mg Capsule PO (21:55)
--- NOTE | 2024-01-11 23:39 | PC.NURSE ---
patient admitted with possible UTI and AMS. patient is alert and oriented to person place time and date. patient follows commands and answers all questions correctly.
[2024-01-12] VITALS (10 sets, daily range): BP systolic 122–156; BP diastolic 61–83; PULSE 68–86; RESP 16–18; TEMP 36.2–36.7; O2SAT 91–94
--- NOTE | 2024-01-12 00:19 | PC.NURSE ---
patient stating she can not got to sleep at this time. dr notified and wants to hold off on sleep meds at this time. will assess issue again in 2 hours.
--- NOTE | 2024-01-12 01:30 | PC.NURSE ---
went to reassess sleeping status at this time, patient is resting in her bed with eyes closed with no signs or symptoms of pain or discomfort
[2024-01-12 05:18] LABS: Basophils # 0.1 10^3/uL (0.0-0.1); Basophils % 1.3 %; Eosinophils # 0.2 10^3/uL (0.0-0.8); Hematocrit 42.5 % (36-47); Lymphocytes # 2.4 10^3/uL (0.8-4.8); Lymphocytes % 37.7 %; Mean Corpuscular HGB Conc 30.8 g/dL (30-55); Mean Corpuscular Volume 97.3 fl (85-98); Mean Platelet Volume 11.5 fL (7.4-10.4); Monocytes # 0.8 10^3/uL (0.2-0.9); Monocytes % 12.7 %; Neutrophils % 45.1 %; Nucleated Red Blood Cells % 0 %; Platelet Count 199 10^3/cmm (157-399); Red Blood Count 4.37 10^6/uL (3.85-5.65); Red Cell Distribution Width 13.8 % (12.1-15.1)
[2024-01-12 05:44] LABS: Anion Gap 16.7 (5-19); Blood Urea Nitrogen 15 mg/dL (8-23); Calcium 8.9 mg/dL (8.5-10.5); Carbon Dioxide 26 mmol/L (22-29); Chloride 102 mmol/L (98-107); Creatinine Clr Calc Pharmacy 41.9629; Glucose 122 mg/dL (65-115); Magnesium 1.7 mg/dL (1.7-2.3); Osmolality Calculated 294 mOsm/kg (285-295); Potassium 3.7 mmol/L (3.5-5.1); Sodium 141 mmol/L (136-145)
[2024-01-12] MEDS: isosorbide mononitrate ER 60 mg Tablet PO (06:11)
--- NOTE | 2024-01-12 09:01 | P.CONIM_ITS ---
Providers/Reason For Consult 2 Consulting Physician/Specialty*: ANGELI Montano MD/cardiology Reason for Consult*: Patient with atrial fibrillation/episodes of confusion/history of bradycardia Requesting Physician: Dr. Jin Attending Physician: Isha Lopez MD Primary Care Provider: CEDRIC Ayon History of Present Illness History of Present Illness Kadi Hernandez is a 78 year old female, is admitted to hospital through the emergency room where she presented with an episode of passing out spell. Patient has a history of atrial fibrillation and bradycardia. She has an implantable nurse monitoring in place. Cardiology consult is requested for further cardiac evaluation recommendations. This patient was discharged from the hospital 2 days ago where she was admitted with complaints of dizziness associated with nausea and weakness. She was found to have features of vertigo. Her blood pressure was also found to be uncontrolled. Her medications were adjusted and was discharged home on the following day of admission. Her CT of the head and CTA of the neck were essentially unremarkable. According to the patient's , she was on the phone with her son and all of a sudden, she apparently passed out on the couch. Her son could hear the phone dropping of from her hand. He tried to call 911 but there was no response. Then he sent the grandson to check on her. As the grandson arrived at the scene, patient was found on the couch slumped back, unable to say what exactly happened to her. She did not have any bladder or bowel incontinence. No seizure activities. As per the , she is very forgetful. She has episodes of panic attacks causing asthma exacerbation. She also has been having episodes of chest pains. She has a history of heartburns and frequently burps. Patient is not able to give any detailed history. She is being treated for dementia/memory loss by neurology. She also has essential benign tremor and is on levodopa. She was found to have UTI during the recent hospital admission and was placed on antibiotics. She has a history of chronic intermittent atrial fibrillation. She is on amiodarone. Currently she seems to be in sinus rhythm. She had the implantable nurse monitoring in 2020. She had episodes of bradycardia in the beginning. But lately she has been having more tachycardias. There were a few pauses on the device telemetry and that turned out to be low voltage QRS complexes. She had up to Myocardial perfusion imaging's in the past, in 2020 and in July 2023. Both these tests are unremarkable. Review of Systems 2 Narrative: CONSTITUTIONAL: No fever or chills. EYES: No blurring of vision or other visual disturbances lately. ENT: No hoarseness of voice, auditory disturbances or sore throat. CARDIOVASCULAR: As mentioned above. RESPIRATORY: History of reactive airway disease and intermittent asthma attack GASTROINTESTINAL: No hematemesis or melena. GENITOURINARY: Recently diagnosed UTI INTEGUMENTARY: No skin rashes or history of skin cancer. NEURO: Memory loss and benign essential tremor PSYCHIATRIC: This is anxiety disorder HEMATOLOGIC: No bleeding disorders or significant anemia. ENDOCRINE: No history of polyuria or polydipsia. MUSCULOSKELETAL: No recent joint pain or swelling. ALLERGY/IMMUNOLOGY: As mentioned above. Medications/Allergies Home Medications Medication Instructions Recorded Confirmed Last Taken Type fluticasone propionate 50 2 spray intranasal DAILY PRN 09/15/21 01/11/24 Unknown History mcg/actuation nasal Allergy Symptoms spray,suspension (Flonase Allergy Relief) rivaroxaban 20 mg tablet (Xarelto) 20 mg PO DAILY #100 tabs 04/24/23 01/11/24 01/11/24 Rx allopurinol 300 mg tablet 300 mg PO DAILY PRN gout 07/29/23 01/11/24 10/15/23 History atorvastatin 20 mg tablet 20 mg PO BEDTIME 07/29/23 01/11/24 01/10/24 History isosorbide mononitrate 60 mg 60 mg PO QAM 07/29/23 01/11/24 01/11/24 History tablet,extended release 24 hr loratadine 10 mg tablet 10 mg PO DAILY PRN Allergy Symptoms 07/29/23 01/11/24 11/12/23 History primidone 50 mg tablet 50 mg PO BEDTIME 07/29/23 01/11/24 01/10/24 History icosapent ethyl 1 gram capsule 1 g PO DAILY #90 caps 08/07/23 01/11/24 01/11/24 Rx (Vascepa) donepezil 10 mg tablet 10 mg PO DAILY 11/02/23 01/11/24 01/11/24 History ketoconazole 2 % shampoo See Rx Instructions .Route 11/02/23 01/11/24 11/17/23 History .COMPLEX PRN SCALP IRRITATION triamcinolone acetonide 0.1 % 1 applic topical BID 11/02/23 01/11/24 Unknown History topical cream carbidopa 10 mg-levodopa 100 mg 1 tab PO BID #60 tabs 11/04/23 01/11/24 01/10/24 Rx tablet albuterol sulfate 90 mcg/actuation 2 inh inhalation Q8H PRN shortness 12/12/23 01/11/24 Unknown Rx aerosol inhaler of breath or wheezing #8.5 grams cholecalciferol (vitamin D3) 1,250 50,000 unit PO .COMPLEX #14 caps 12/26/23 01/11/24 Unknown Rx mcg (50,000 unit) capsule hydralazine 10 mg tablet 10 mg PO BID #60 tabs 01/10/24 01/11/24 01/11/24 Rx losartan 50 mg tablet 25 mg (1/2 x 50 mg) PO DAILY #60 01/10/24 01/11/24 Unknown Rx tabs ketoconazole 2 % topical cream See Rx Instructions .Route .COMPLEX 01/11/24 01/11/24 Unknown History Allergies Allergy/AdvReac Type Severity Reaction Status Date / Time lisinopril Allergy coughing Verified 01/09/24 12:28 Current Medications Generic Name Dose Route Start Last Admin Trade Name Freq PRN Reason Stop Dose Admin Acetaminophen 500 mg 01/11/24 16:37 01/11/24 21:11 Acetaminophen 500 Mg Tablet PO 500 mg Q4H PRN Administration fever Carbidopa/Levodopa 1 each 01/11/24 18:00 01/11/24 18:37 Carbidopa-Levodopa 10-100 Mg Tablet PO 1 each BID JACQUI Administration Ceftriaxone Sodium 1,000 mg 01/11/24 18:00 01/11/24 18:37 Ceftriaxone 1,000 Mg Sdv IVP 1,000 mg Q24H JACQUI Administration Enoxaparin Sodium 100 mg 01/11/24 19:45 01/11/24 21:11 Enoxaparin 100 Mg/Ml Syringe 1 mg/kg (100 mg) 100 mg SUBCUT Administration Q12H JACQUI Hydralazine HCl 10 mg 01/11/24 18:00 01/11/24 18:37 Hydralazine 10 Mg Tablet PO 10 mg BID JACQUI Administration Isosorbide Mononitrate 60 mg 01/12/24 06:00 01/12/24 06:11 Isosorbide Mononitrate Er 60 Mg Tablet PO 60 mg QAM JACQUI Administration PFSH Acute 2 PFSH: Medical History (Updated 01/12/24 @ 10:34 by Mandie Montano MD) Benign positional vertigo Hypertensive urgency Hypertension Generalized weakness Chest pain UTI (urinary tract infection) Bradycardia CAD (coronary artery disease) Dizziness Atrial fibrillation Essential tremor Generalized weakness Lactic acidosis Acute metabolic encephalopathy Sepsis Atrial fibrillation Urinary tract infection Elevated blood pressure reading Palpitation HTN (hypertension) Gout Dyslipidemia Melanoma Surgical History Hx of cataract extraction History of cholecystectomy Status post laparoscopic cholecystectomy (03/30/20) History of removal of ovarian cyst History of carpal tunnel release S/P complete hysterectomy H/O esophagogastroduodenoscopy 1977 H/O colonoscopy 2016 Family History Mother Melanoma Diabetes Stroke Father CAD (coronary artery disease) unknown age of onset, [place] at 62 Cancer Family/Other Cancer Grandmother Cancer Brother Diabetes Denies family history of Clotting disorder Dementia Chronic kidney disease (CKD) Suicide Anesthesia complication Bleeding disorder Lung disease Social History Smoking and tobacco/nicotine status: never used tobacco/nicotine Alcohol intake: never Substance/Drug Use: never Household members: spouse Marital status: Current occupational status: retired Vitals/I&O/Wt Last Vital Signs Temp 97.9 F 01/12/24 07:33 Pulse 68 01/12/24 07:33 Resp 17 01/12/24 07:33 BP 129/70 01/12/24 07:33 Pulse Ox 93 01/12/24 07:33 O2 Del Method Room Air 01/12/24 05:04 Weight last 48 hrs Weight 213 lb 8 oz Weight 214 lb 3.2 oz Weight 220 lb Physical Exam 2 Narrative: GENERAL: The patient is alert and oriented times three. Not in any acute distress. Moderately obese HEENT: No significant pallor, icterus or lymphadenopathy.Oral cavity: There are no mucous membrane lesions. NECK: Trachea appears to be central. No masses noted. No JVD or thyromegaly appreciated. RESPIRATORY: Chest is symmetrical. No intercostals muscle retraction or any accessory muscle activation. There is no chest wall tenderness. Breath sounds are heard bilaterally. No rales or rhonchi heard. No evidence of any consolidation. BREASTS: Deferred. HEART: The heart sounds are normal. No S3 or S4. No significant murmurs. No pericardial rub ABDOMEN: No vessel pulsations or distention. No tenderness. No organomegaly appreciated. Bowel sounds are normally heard. : Deferred. RECTAL: Deferred. LYMPHATIC: No lymphadenopathy noted in the neck. EXTREMITIES: No edema or cyanosis. No clubbing. MUSCULOSKELETAL: No acute joint deformities or swelling SKIN: There are no significant rashes or ecchymosis NEUROPSYCHIATRIC: Resting tremor of both upper extremities. No focal motor deficits. Data 01/12/24 05:00 01/12/24 05:00 Other Labs: Laboratory Last Values WBC 6.40 10^3/uL (3.29-11.43) 01/12/24 05:00 RBC 4.37 10^6/uL (3.85-5.65) 01/12/24 05:00 Hgb 13.10 g/dL (11.27-16.99) 01/12/24 05:00 Hct 42.5 % (36-47) 01/12/24 05:00 MCV 97.3 fl (85-98) 01/12/24 05:00 MCH 30.0 pg (27-33) 01/12/24 05:00 MCHC 30.8 g/dL (30-55) 01/12/24 05:00 RDW 13.8 % (12.1-15.1) 01/12/24 05:00 Plt Count 199 10^3/cmm (157-399) 01/12/24 05:00 MPV 11.5 fL (7.4-10.4) H 01/12/24 05:00 Neut % (Auto) 45.1 % 01/12/24 05:00 Lymph % (Auto) 37.7 % 01/12/24 05:00 Armstrong % (Auto) 12.7 % 01/12/24 05:00 Eos % (Auto) 3.0 % 01/12/24 05:00 Baso % (Auto) 1.3 % 01/12/24 05:00 Neut # (Auto) 2.90 10^3/uL (1.8-7.7) 01/12/24 05:00 Lymph # (Auto) 2.4 10^3/uL (0.8-4.8) 01/12/24 05:00 Armstrong # (Auto) 0.8 10^3/uL (0.2-0.9) 01/12/24 05:00 Eos # (Auto) 0.2 10^3/uL (0.0-0.8) 01/12/24 05:00 Baso # (Auto) 0.1 10^3/uL (0.0-0.1) 01/12/24 05:00 Nucleated RBC % (auto) 0 % 01/12/24 05:00 Nucleated RBCs # 0.0 /100WBC 01/12/24 05:00 PT 34.40 SECONDS (12.1-14.9) H 01/11/24 10:59 INR 3.25 (0.8-1.2) H 01/11/24 10:59 Sodium 141 mmol/L (136-145) 01/12/24 05:00 Potassium 3.7 mmol/L (3.5-5.1) 01/12/24 05:00 Chloride 102 mmol/L (98-107) 01/12/24 05:00 Carbon Dioxide 26 mmol/L (22-29) 01/12/24 05:00 Anion Gap 16.7 (5-19) 01/12/24 05:00 BUN 15 mg/dL (8-23) 01/12/24 05:00 Creatinine 1.2 mg/dL (0.5-0.9) H 01/12/24 05:00 GFR Calculation Not Reportable 01/12/24 05:00 Glucose 122 mg/dL (65-115) H 01/12/24 05:00 Calculated Osmolality 294 mOsm/kg (285-295) 01/12/24 05:00 Calcium 8.9 mg/dL (8.5-10.5) 01/12/24 05:00 Magnesium 1.7 mg/dL (1.7-2.3) 01/12/24 05:00 Total Bilirubin 0.7 mg/dL (0.15-1.2) 01/11/24 10:59 AST 36 U/L (0-32) H 01/11/24 10:59 ALT < 5 U/L (0-33) 01/11/24 10:59 Alkaline Phosphatase 59 U/L (35-105) 01/11/24 10:59 Troponin T Baseline 13 ng/L (0-10) H 01/11/24 10:59 Troponin T 120 Minute 12.44 ng/L (0-10) H 01/11/24 12:55 Delta Troponin T -0.56 ABS# (0-10) L 01/11/24 12:55 Troponin T Hi Sens 6Hr 9.52 ng/L (0-10) 01/11/24 17:06 Troponin T Hi Sens 6Hr Delta -3.48 ng/L (0-12) L 01/11/24 17:06 NT-Pro-B Natriuret Pep 158 pg/mL (0-450) 01/11/24 10:59 Total Protein 8.3 g/dL (6.6-8.7) 01/11/24 10:59 Albumin 4.4 g/dL (3.5-5.2) 01/11/24 10:59 Globulin 3.9 g/dL (1.3-4.6) 01/11/24 10:59 Urine Color Yellow (Yellow) 01/11/24 12:52 Urine Appearance Cloudy (CLEAR) A 01/11/24 12:52 Urine pH 5.0 (5-7) 01/11/24 12:52 Ur Specific Central 1.015 (1.005-1.030) 01/11/24 12:52 Urine Protein Trace (Negative) A 01/11/24 12:52 Urine Glucose (UA) Negative (Normal) 01/11/24 12:52 Urine Ketones Negative (Negative) 01/11/24 12:52 Urine Blood Negative (Negative) 01/11/24 12:52 Urine Nitrate Negative (Negative) 01/11/24 12:52 Urine Bilirubin Negative (Negative) 01/11/24 12:52 Urine Urobilinogen 0.2 mg/dL (Negative) 01/11/24 12:52 Ur Leukocyte Esterase 3+ (Negative) A 01/11/24 12:52 Urine RBC 0-4 /hpf (0-2) H 01/11/24 12:52 Urine WBC 55-80 /hpf (0-5) H 01/11/24 12:52 Ur Squamous Epith Cells 5-10 /hpf (0-5) H 01/11/24 12:52 Ur Transition Epith Cell 0-4 /hpf 01/11/24 12:52 Amorphous Sediment Not Reportable 01/11/24 12:52 Urine Bacteria 1+ /hpf (NONE) H 01/11/24 12:52 Urine Mucus Trace /hpf 01/11/24 12:52 Micro: Microbiology 01/11/24 12:52 Urine Culture - Preliminary Urine,Clean Catch Gram Negative Rods Gram Negative Rods#2 Other data: EKG from 01/11/2024 Normal sinus rhythm with poor R wave progression. Normal TN and QRS duration. Echocardiogram on 01/09/2024 Normal left ventricular size and systolic function, EF 64% .no regional wall motion abnormalities. Grade III/IV diastolic dysfunction (restrictive filling pattern), severely elevated filling pressures. Trace mitral valve regurgitation. Mildly increased left atrial size. Thickened aortic valve. Features of aortic valve sclerosis. Mild tricuspid valve regurgitation. Estimated pulmonary artery peak systolic pressure 53 mmHg- moderate pulmonary hypertension There is no pericardial effusion. There are no intracardiac masses. A&P Assessment and plan (1) Passed out: The etiology of the passing out is not clear. Possibility of bradycardia tacky arrhythmia causing this is a consideration. The implantable nurse monitoring need to be interrogated. I may also check on the orthostatic vitals to look for any evidence of any significant orthostatic hypotension. (2) Atrial fibrillation with rapid ventricular response: Patient currently seems to be in sinus rhythm. May continue on the current medications. (3) Benign hypertension: Patient has been having episodes of accelerated hypertension. Currently the blood pressure seems to be under control. May be continued on the current medications. (4) Hypertriglyceridemia: May continue on the current medications. (5) Benign positional vertigo: Management as per the primary Qualifiers: Laterality: bilateral Qualified Code(s): H81.13 - Benign paroxysmal vertigo, bilateral (6) Memory loss: This is being followed by the neurology. (7) Chest pain: This could very well be related to GERD. She had two Myocardial perfusion imaging studies in the past, which were unremarkable. She has no EKG evidence of any ischemia or any evidence of medical injury. Sometime down the line, we may have to do a cardiac catheterization to rule out underlying coronary artery disease Qualifiers: Chest pain type: other chest pain Qualified Code(s): R07.89 - Other chest pain (8) Reactive airway disease: Patient is on bronchodilators. May continue the same. Qualifiers: Asthma severity: mild Asthma complication type: uncomplicated Asthma persistence: intermittent Qualified Code(s): J45.20 - Mild intermittent asthma, uncomplicated Plan If there is no significant arrhythmias to explain the passing out spell and also if there is no significant drop in the blood pressure with the upright posture, I may hold off on any further cardiac intervention at this point. Since there was no significant sinus pauses on my review of the [facility] telemetry, it may be appropriate to put her back on amiodarone 200 mg p.o. daily, if it was stopped for the pauses. Consult Attestations 2 Medical Necessity Statement: Deferred to the primary Coding Level of Care Code 28589 Diagnoses Passed out Atrial fibrillation with rapid ventricular response I48.91 Benign hypertension I10 Hypertriglyceridemia E78.1 Benign paroxysmal positional vertigo due to bilateral vestibular disorder H81.13 Laterality: bilateral Memory loss R41.3 Other chest pain R07.89 Chest pain type: other chest pain Mild intermittent reactive airway disease without complication J45.20 Asthma severity: mild Asthma complication type: uncomplicated Asthma persistence: intermittent
[2024-01-12] MEDS: donepezil 5 MG Tablet 10 MG PO (09:19)
[2024-01-12] MEDS: magnesium oxide 400 mg tablet PO ×2 (09:19→17:59)
[2024-01-12] MEDS: hyDRALAzine 10 mg Tablet PO ×2 (09:19→17:59)
[2024-01-12] MEDS: losartan 50 mg Tablet 25 MG PO (09:19)
[2024-01-12] MEDS: enoxaparin 100 mg/mL Syringe SUBCUT ×2 (09:20→20:23)
--- NOTE | 2024-01-12 09:55 | PC.CHAP ---
Pastoral Care Encounter/Spiritual Assessment Type of Contact [] Declined biomechanical engineer visit [] Patient/Family/Request visit [] Outpatient visit [] Follow-up visit [] Physician referral [] Code/Alert [X] Routine visit [] Staff referral [] Actively dying [] Patient sleeping [] Family support [] [] Out of room [] Palliative care [] [] Receiving care in room [] Pre-surgical visit [] Trauma [] Long length of stay [] ICU visit [] Other: Relational/Emotional Strength [x] Patient feels connected with others/family/visitors/staff [] Distress [] Loneliness/isolation [] Abandonment Spirituality of Patient [x] Person of Sarah [x] Attends Muslim of their Sarah [x] Believes in Prayer [x] Reads Bible or Shinto materials [] There are Spiritual issues to be addressed 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 Interventions [x] Prayer [x] Active listening [x] Non-anxious presence [x] Spiritual/emotional support [] Crisis/trauma care [] Spiritual counseling [] Bereavement support [] Provided bereavement packet [] Provided Bible/devotional materials [] Provided toy/stuffed animal, coloring book to patient or family member [] Provided Communion [] Anointing/[place] [] Salvation [] Completed spiritual assessment [] Other: Impact on Illness or Injury [] Angry [] Fearful [] Anxious [] Often cries [] Exhaustion [] Unable to work [] Unable to attend uatsdin [] Unable to walk/stand [] Unable to read [] Unable to drive [] Unable to eat/drink [] Unable to sleep [] Unable to be with family [] Patient intubated [] Other: Summary Great spirits +1 Time spent with patient 40 Min
--- NOTE | 2024-01-12 13:11 | PM.PN ---
Subjective Subjective: seen this morning says she is scared because she does not remember how she passed out. She has had her loop recorder for about 2 years. She was seen by Dr. Montano this morning. Family at bedside. She says she has never had a syncopal episode before. At this time denies shortness of breath, chest pain. Vitals/I&O/Wt Last Vital Signs Temp 97.8 F 01/12/24 12:00 Pulse 71 01/12/24 12:00 Resp 17 01/12/24 12:00 BP 128/63 01/12/24 12:00 Pulse Ox 91 01/12/24 12:00 O2 Del Method Room Air 01/12/24 09:15 01/11/24 01/12/24 01/12/24 22:59 06:59 14:59 Intake Total 240 / 240 Balance 240 / 240 Weight last 48 hrs Weight 96.842 kg Weight 97.159 kg Weight 99.79 kg Physical Exam Narrative: Euvolemic NIH 0 GCS 15 S1, S2 sinus rhythm Currently on room air No sign of confusion at all Abdomen soft Patient dinner Pupils are symmetrical No facial droop Patient is alert oriented x 3 Data 01/12/24 05:00 01/12/24 05:00 Micro: Microbiology 01/11/24 12:52 Urine Culture - Preliminary Urine,Clean Catch Gram Negative Rods Gram Negative Rods#2 A&P Assessment and plan (1) Benign hypertension: (2) Exertional shortness of breath: (3) Altered mental status: (4) Essential tremor: (5) UTI (urinary tract infection): Plan Dizziness and confusion Could be related to UTI Start ceftriaxone Patient is afebrile no sign of sepsis Rule out sinus pauses and bradycardia related symptoms Will monitor on telemetry overnight avoid beta-barbra and propranolol Patient may need cardiac evaluation before she goes home in case of more sinus pauses on telemetry overnight Essential tremors patient takes Sinemet propranolol discontinued Dementia: Continue donepezil Hypertensive urgency continue losartan, hydralazine and Imdur avoid AV kimberlee blocking agents A-fib without RVR: I would hold off on Xarelto in case patient would need pacemaker evaluation I will put her on therapeutic Lovenox Amiodarone discontinued as well Full code Patient does not want to go to [facility] however family is concerned about her safety at home Patient is very eager to return home once cleared Cardiac diet 01/11 Cardiology consultation appreciated Check loop recorder interrogation Continue to monitor in telemetry Check orthostatic vitals Dr. Montano reviewed previous loop recorder results and stated patient does not in fact have sinus pauses and they are low voltage QRS. He recommends amiodarone to be restarted. It was possibly held secondary to suspicion of sinus pauses. Attestations Medical Necessity Statement*: Continue to observe patient in the hospital. She will need loop recorder interrogation and orthostatic vital signs. Will continue to monitor on telemetry. Expect another 24 to 48 hours stay. Diagnoses Benign hypertension I10 Exertional shortness of breath R06.02 Altered mental status R41.82 Essential tremor G25.0 UTI (urinary tract infection) N39.0
[2024-01-12] MEDS: cefTRIAXone 1,000 mg SDV 1000 MG IVP (18:01)
[2024-01-13] VITALS (7 sets, daily range): BP systolic 126–154; BP diastolic 69–79; PULSE 69–79; RESP 16–18; TEMP 36.4–36.8; O2SAT 91–93
[2024-01-13 05:13] LABS: Basophils # 0.1 10^3/uL (0.0-0.1); Basophils % 1.3 %; Eosinophils # 0.3 10^3/uL (0.0-0.8); Eosinophils % 3.7 %; Hematocrit 43.4 % (36-47); Lymphocytes # 2.4 10^3/uL (0.8-4.8); Lymphocytes % 35.3 %; Mean Corpuscular HGB Conc 30.9 g/dL (30-55); Mean Corpuscular Hemoglobin 30.2 pg (27-33); Mean Corpuscular Volume 97.7 fl (85-98); Mean Platelet Volume 11.6 fL (7.4-10.4); Monocytes # 0.9 10^3/uL (0.2-0.9); Monocytes % 12.5 %; Neutrophils # 3.13 10^3/uL (1.8-7.7); Neutrophils % 46.2 %; Nucleated Red Blood Cells % 0 %; Platelet Count 205 10^3/cmm (157-399); Red Blood Count 4.44 10^6/uL (3.85-5.65); Red Cell Distribution Width 14.1 % (12.1-15.1); White Blood Count 6.79 10^3/uL (3.29-11.43)
[2024-01-13 05:29] LABS: Anion Gap 20.7 (5-19); Blood Urea Nitrogen 14 mg/dL (8-23); Carbon Dioxide 22 mmol/L (22-29); Chloride 100 mmol/L (98-107); Creatinine Clr Calc Pharmacy 42.1178; Glucose 140 mg/dL (65-115); Magnesium 1.8 mg/dL (1.7-2.3); Osmolality Calculated 291 mOsm/kg (285-295); Potassium 3.7 mmol/L (3.5-5.1); Sodium 139 mmol/L (136-145)
[2024-01-13] MEDS: isosorbide mononitrate ER 60 mg Tablet PO (06:08)
[2024-01-13] MEDS: amiodarone 200 mg Tablet PO (09:58)
[2024-01-13] MEDS: donepezil 5 MG Tablet 10 MG PO (09:58)
[2024-01-13] MEDS: magnesium oxide 400 mg tablet PO (09:58)
[2024-01-13] MEDS: losartan 50 mg Tablet 25 MG PO (09:58)
[2024-01-13] MEDS: hyDRALAzine 10 mg Tablet PO (09:58)
--- NOTE | 2024-01-13 12:56 | P.PN_ITS ---
Subjective 2 Subjective: Denies any complaint. No overnight event, no arrhythmia noted. Vitals/I&O/Wt Last Vital Signs Temp 97.7 F 01/13/24 11:56 Pulse 72 01/13/24 11:56 Resp 18 01/13/24 11:56 BP 144/74 01/13/24 11:56 Pulse Ox 92 01/13/24 11:56 O2 Del Method Room Air 01/13/24 11:56 01/12/24 01/13/24 01/13/24 22:59 06:59 14:59 Intake Total 360 / 840 480 / 480 Balance 360 / 840 480 / 480 Weight last 48 hrs Weight 214 lb 14.4 oz Weight 213 lb 8 oz Weight 214 lb 3.2 oz Physical Exam 2 Const: OTHER: GENERAL: Patient is alert, awake and oriented x3. HEART: Regular S1 and S2. No murmur, rub or gallop. LUNGS: Clear to auscultate bilaterally. CENTRAL NERVOUS SYSTEM: Grossly nonfocal. EXTREMITIES: Lower extremities without edema bilaterally. Data 01/13/24 04:21 01/13/24 04:21 Micro: Microbiology 01/11/24 12:52 Urine Culture - Preliminary Urine,Clean Catch Gram Negative Rods Gram Negative Rods#2 A&P Assessment and plan (1) Passed out: No significant bradycardia or other arrhythmia noted on the telemetry. Possible vagal syncope. Continue to monitor through loop recorder, UTI could be a consideration. From cardiovascular perspective patient can be discharged home. Advised to keep herself hydrated in case of further worsening of symptom she should call us back. Follow-up with Dr. Montano (2) Atrial fibrillation with rapid ventricular response: Patient remained in sinus rhythm continue current regimen. (3) Benign hypertension: Controlled continue medicine (4) Hypertriglyceridemia: Continue current regimen (5) Benign positional vertigo: Well-managed denies any symptoms Qualifiers: Laterality: bilateral Qualified Code(s): H81.13 - Benign paroxysmal vertigo, bilateral (6) Memory loss: Treatment as per medicine (7) Chest pain: Denies any chest pain. No further workup needed at this point patient would like to go home. Will discharge Qualifiers: Chest pain type: other chest pain Qualified Code(s): R07.89 - Other chest pain (8) Reactive airway disease: Patient is on bronchodilators. May continue the same. Qualifiers: Asthma severity: mild Asthma persistence: intermittent Asthma complication type: uncomplicated Qualified Code(s): J45.20 - Mild intermittent asthma, uncomplicated Plan If there is no significant arrhythmias to explain the passing out spell and also if there is no significant drop in the blood pressure with the upright posture, I may hold off on any further cardiac intervention at this point. Since there was no significant sinus pauses on my review of the ICM telemetry, it may be appropriate to put her back on amiodarone 200 mg p.o. daily, if it was stopped for the pauses. Attestations 2 Medical Necessity Statement*: Patient can be discharged home Coding Level of Care Code Acute Code for Chg Fwd Diagnoses Passed out Atrial fibrillation with rapid ventricular response I48.91 Benign hypertension I10 Hypertriglyceridemia E78.1 Benign paroxysmal positional vertigo due to bilateral vestibular disorder H81.13 Laterality: bilateral Memory loss R41.3 Other chest pain R07.89 Chest pain type: other chest pain Mild intermittent reactive airway disease without complication J45.20 Asthma severity: mild Asthma persistence: intermittent Asthma complication type: uncomplicated
--- NOTE | 2024-01-13 14:42 | P.DS_ITS ---
Discharge Providers Date of Admission: 01/11/24 14:47 Date of Discharge: January 13, 2024 Attending Provider at Admission: Wendie Jin MD Attending Provider at Discharge: Benny Wang MD Consults: Cardiology Primary Care Provider: CEDRIC Ayon Diagnoses at Discharge Discharge Diagnosis (1) Passed out: Status: Acute (2) Atrial fibrillation with rapid ventricular response: Status: Acute (3) Benign hypertension: Status: Acute (4) Hypertriglyceridemia: Status: Acute (5) Benign positional vertigo: Status: Acute Qualifiers: Laterality: bilateral Qualified Code(s): H81.13 - Benign paroxysmal vertigo, bilateral (6) Memory loss: Status: Acute (7) Chest pain: Status: Acute Qualifiers: Chest pain type: other chest pain Qualified Code(s): R07.89 - Other chest pain (8) Reactive airway disease: Status: Acute Qualifiers: Asthma complication type: uncomplicated Asthma persistence: intermittent Asthma severity: mild Qualified Code(s): J45.20 - Mild intermittent asthma, uncomplicated Reason for Visit Reason for Visit: Afib,Sob,Chest Pains Hospital Course Hospital Course Kadi Hernandez is a 78-year-old female with a past medical history significant for atrial fibrillation with tachybradycardia syndrome, hypertension, gout, tremors, and multiple other comorbidities who presented with syncope. CT head was negative for acute findings. Cardiac etiology was considered for which cardiology was consulted. Her loop recorder was interrogated without significant arrhythmias. Patient was found to have acute complicated urinary tract infection with urine culture growing Klebsiella pneumoniae and E. coli. She was treated with IV antibiotics and rotated to cefdinir at discharge. Patient reported history of recurrent UTIs with around 5 or 6 episodes this year. She was given prescription for methenamine which she was previously on years ago. Patient symptomatology improved. Patient discharged home in stable condition. She will follow-up with her outpatient providers for continued care. Physical Exam Narrative: General: Patient is awake and alert. Head: Normocephalic. Atraumatic. EOM intact. Neck: No JVD. Cardiovascular: RRR. No gallops. No murmurs. Lungs: Clear to auscultation, no use of accessory muscles, no crackles or wheezes. Skin: No jaundice. No rashes. Abdomen: Normal bowel sounds, abdomen soft and nontender. Extremities: No cyanosis or clubbing. Musculoskeletal: No swollen or erythematous joints. Neurological: Tremor present. Discharge Data Studies Completed and Pending Completed Studies During Hospitalization Category Date Time Status CT head wo con* [id number] Stat Cat Scan 01/11/24 10:59 Completed XR chest 1V portable [id number] Stat Exams 01/11/24 10:47 Completed Pending at discharge Category Date Time Status Urine Culture Stat Lab 01/11/24 12:52 Results Radiology Impressions Chest X-Ray 01/11/24 10:47 Impression: There is cardiomegaly. I see no failure. Minimal linear atelectasis in the left base is suspected. Head CT 01/11/24 10:59 IMPRESSION: 1. Mild volume loss with cerebral atrophy and small vessel disease. Similar to the prior study of 01/09/2024. 2. No acute interval change. Laboratory Results WBC 6.79 10^3/uL (3.29-11.43) 01/13/24 04:21 RBC 4.44 10^6/uL (3.85-5.65) 01/13/24 04:21 Hgb 13.40 g/dL (11.27-16.99) 01/13/24 04:21 Hct 43.4 % (36-47) 01/13/24 04:21 MCV 97.7 fl (85-98) 01/13/24 04:21 MCH 30.2 pg (27-33) 01/13/24 04:21 MCHC 30.9 g/dL (30-55) 01/13/24 04:21 RDW 14.1 % (12.1-15.1) 01/13/24 04:21 Plt Count 205 10^3/cmm (157-399) 01/13/24 04:21 MPV 11.6 fL (7.4-10.4) H 01/13/24 04:21 Neut % (Auto) 46.2 % 01/13/24 04:21 Lymph % (Auto) 35.3 % 01/13/24 04:21 [place] % (Auto) 12.5 % 01/13/24 04:21 Eos % (Auto) 3.7 % 01/13/24 04:21 Baso % (Auto) 1.3 % 01/13/24 04:21 Neut # (Auto) 3.13 10^3/uL (1.8-7.7) 01/13/24 04:21 Lymph # (Auto) 2.4 10^3/uL (0.8-4.8) 01/13/24 04:21 [place] # (Auto) 0.9 10^3/uL (0.2-0.9) 01/13/24 04:21 Eos # (Auto) 0.3 10^3/uL (0.0-0.8) 01/13/24 04:21 Baso # (Auto) 0.1 10^3/uL (0.0-0.1) 01/13/24 04:21 Nucleated RBC % (auto) 0 % 01/13/24 04:21 Nucleated RBCs # 0.0 /100WBC 01/13/24 04:21 PT 34.40 SECONDS (12.1-14.9) H 01/11/24 10:59 INR 3.25 (0.8-1.2) H 01/11/24 10:59 Sodium 139 mmol/L (136-145) 01/13/24 04:21 Potassium 3.7 mmol/L (3.5-5.1) 01/13/24 04:21 Chloride 100 mmol/L (98-107) 01/13/24 04:21 Carbon Dioxide 22 mmol/L (22-29) 01/13/24 04:21 Anion Gap 20.7 (5-19) H 01/13/24 04:21 BUN 14 mg/dL (8-23) 01/13/24 04:21 Creatinine 1.2 mg/dL (0.5-0.9) H 01/13/24 04:21 GFR Calculation Not Reportable 01/13/24 04:21 Glucose 140 mg/dL (65-115) H 01/13/24 04:21 Calculated Osmolality 291 mOsm/kg (285-295) 01/13/24 04:21 Calcium 9.0 mg/dL (8.5-10.5) 01/13/24 04:21 Magnesium 1.8 mg/dL (1.7-2.3) 01/13/24 04:21 Total Bilirubin 0.7 mg/dL (0.15-1.2) 01/11/24 10:59 AST 36 U/L (0-32) H 01/11/24 10:59 ALT < 5 U/L (0-33) 01/11/24 10:59 Alkaline Phosphatase 59 U/L (35-105) 01/11/24 10:59 Troponin T Baseline 13 ng/L (0-10) H 01/11/24 10:59 Troponin T 120 Minute 12.44 ng/L (0-10) H 01/11/24 12:55 Delta Troponin T -0.56 ABS# (0-10) L 01/11/24 12:55 Troponin T Hi Sens 6Hr 9.52 ng/L (0-10) 01/11/24 17:06 Troponin T Hi Sens 6Hr Delta -3.48 ng/L (0-12) L 01/11/24 17:06 NT-Pro-B Natriuret Pep 158 pg/mL (0-450) 01/11/24 10:59 Total Protein 8.3 g/dL (6.6-8.7) 01/11/24 10:59 Albumin 4.4 g/dL (3.5-5.2) 01/11/24 10:59 Globulin 3.9 g/dL (1.3-4.6) 01/11/24 10:59 Urine Color Yellow (Yellow) 01/11/24 12:52 Urine Appearance Cloudy (CLEAR) A 01/11/24 12:52 Urine pH 5.0 (5-7) 01/11/24 12:52 Ur Specific [place] 1.015 (1.005-1.030) 01/11/24 12:52 Urine Protein Trace (Negative) A 01/11/24 12:52 Urine Glucose (UA) Negative (Normal) 01/11/24 12:52 Urine Ketones Negative (Negative) 01/11/24 12:52 Urine Blood Negative (Negative) 01/11/24 12:52 Urine Nitrate Negative (Negative) 01/11/24 12:52 Urine Bilirubin Negative (Negative) 01/11/24 12:52 Urine Urobilinogen 0.2 mg/dL (Negative) 01/11/24 12:52 Ur Leukocyte Esterase 3+ (Negative) A 01/11/24 12:52 Urine RBC 0-4 /hpf (0-2) H 01/11/24 12:52 Urine WBC 55-80 /hpf (0-5) H 01/11/24 12:52 Ur Squamous Epith Cells 5-10 /hpf (0-5) H 01/11/24 12:52 Ur Transition Epith Cell 0-4 /hpf 01/11/24 12:52 Amorphous Sediment Not Reportable 01/11/24 12:52 Urine Bacteria 1+ /hpf (NONE) H 01/11/24 12:52 Urine Mucus Trace /hpf 01/11/24 12:52 Vitals Last Vital Signs Temp 97.7 F 01/13/24 11:56 Pulse 72 01/13/24 11:56 Resp 18 01/13/24 11:56 BP 144/74 01/13/24 11:56 Pulse Ox 92 01/13/24 11:56 O2 Del Method Room Air 01/13/24 11:56 Discharge Plan Discharge Patient Disposition: Home Condition: Stable Prescriptions: New Pacerone 200 mg Tablet 200 mg PO DAILY 30 Days Qty: 30 1RF cefdinir 300 mg capsule 300 mg PO BID 10 Days Qty: 20 0RF methenamine hippurate 1 gram tablet 1 g PO BID Qty: 60 1RF Continued fluticasone propionate [Flonase Allergy Relief] 50 mcg/actuation spray,suspension 2 spray intranasal DAILY PRN (Reason: Allergy Symptoms) Rx Instructions: administer into each nostril Xarelto 20 mg tablet 20 mg PO DAILY Qty: 100 3RF albuterol sulfate 90 mcg/actuation HFA aerosol inhaler 2 inh inhalation Q8H PRN (Reason: shortness of breath or wheezing) Qty: 8.5 1RF Vascepa 1 gram capsule 1 g PO DAILY Qty: 90 3RF cholecalciferol (vitamin D3) 1,250 mcg (50,000 unit) capsule 50,000 unit PO .COMPLEX Qty: 14 5RF Rx Instructions: 50,000 units orally weekly; primidone 50 mg tablet 50 mg PO BEDTIME atorvastatin 20 mg tablet 20 mg PO BEDTIME isosorbide mononitrate 60 mg tablet extended release 24 hr 60 mg PO QAM allopurinol 300 mg tablet 300 mg PO DAILY PRN (Reason: gout) loratadine 10 mg tablet 10 mg PO DAILY PRN (Reason: Allergy Symptoms) losartan 50 mg tablet 25 mg PO DAILY Qty: 60 2RF hydralazine 10 mg tablet 10 mg PO BID Qty: 60 2RF ketoconazole 2 % cream See Rx Instructions .ROUTE .COMPLEX Rx Instructions: APPLY TWICE DAILY TO RED/DRY AREAS ON EARS NEEDED. ketoconazole 2 % shampoo See Rx Instructions .ROUTE .COMPLEX PRN (Reason: SCALP IRRITATION) Rx Instructions: APPLY TOPICALLY TO THE AFFECTED AREA(S), LATHER, LEAVE FOR 5 MINUTES & THEN RINSE OFF ONCE DAILY. donepezil 10 mg tablet 10 mg PO DAILY triamcinolone acetonide 0.1 % cream 1 applic TOPICAL BID carbidopa-levodopa 10-100 mg tablet 1 tab PO BID Qty: 60 0RF Discharge Orders: Discharge Order (Routine); Ordered 01/13/24 Ordered By: Benny Wang Referrals: Bonnie Fleming, COUPON CLERK [Primary Care Provider] - 4-7 days (We have notified your physician's clinic of the need for a follow-up appointment to be scheduled. If you have not heard from them within the next 2 business days, please call them directly. ) Discharge Diet: Advance as tolerated and Usual diet Discharge Activity: Resume usual activity and Increase activity as tolerated Patient Instructions: Amiodarone (By mouth) (Cordarone, Pacerone), Methenamine (By mouth) (Hiprex), Cefdinir (By mouth) (Omnicef), A-fib (Atrial Fibrillation) (DC), Urinary Tract Infection in Women (DC), Vertigo (DC), Chronic Hypertension (DC), Opioid Safety Activity Restrictions/Additional Instructions: 1. Take medications as prescribed. 2. Follow-up with cardiology clinic for continued cardiac care. 3. Follow-up with neurology clinic for management of tremors. 4. Follow-up with PCP within 1 week. Discharge Attestations Time Spent in Discharge Care*: greater than 30 min Quality Metrics Clinical Quality Measures [ No reported AMI, CVA or VTE this stay] Coding Level of Care Code Acute Code for Chg Fwd Diagnoses Passed out Atrial fibrillation with rapid ventricular response I48.91 Benign hypertension I10 Hypertriglyceridemia E78.1 Benign paroxysmal positional vertigo due to bilateral vestibular disorder H81.13 Laterality: bilateral Memory loss R41.3 Other chest pain R07.89 Chest pain type: other chest pain Mild intermittent reactive airway disease without complication J45.20 Asthma complication type: uncomplicated Asthma persistence: intermittent Asthma severity: mild
== END 2024-01-13 15:45 | disposition home or self-care (01) ==
LOC: ER 13:49 → MEDSURG 18:03
PROVIDERS: Internal Medicine; Admitting Provider Internal Medicine; Emergency Provider Emergency Medicine; PCP Nurse Practitioner Family; Visit Provider Internal Medicine
DX: R55 Syncope and collapse (principal); I48.91 Unspecified atrial fibrillation; I10 Essential (primary) hypertension; E78.1 Pure hyperglyceridemia; R07.89 Other chest pain; J45.20 Mild intermittent asthma, uncomplicated; E78.00 Pure hypercholesterolemia, unspecified; H81.13 Benign paroxysmal vertigo, bilateral; F03.90 Unspecified dementia, unspecified severity, without behavioral disturbance, psychotic disturbance, mood disturbance, and anxiety; I16.0 Hypertensive urgency; N39.0 Urinary tract infection, site not specified; I25.10 Atherosclerotic heart disease of native coronary artery without angina pectoris
CPT/HCPCS: 36415; 70450; 71045; 80048; 80053; 81003; 81015; 83735; 83880; 84484; 85025; 85610; 87077; 87086; 87186; 93005; 96365; 96366; 96372; 96375; 99285; G0378; J0696; J1650

== ENCOUNTER → 2024-02-23 11:00 | Outpatient (BNVA) | payer MEDICARE, SELFPAY | PROVIDERS: PCP Nurse Practitioner Family; Visit Provider Internal Medicine | DX: R42 Dizziness and giddiness (principal); R00.2 Palpitations; Z45.09 Encounter for adjustment and management of other cardiac device | CPT/HCPCS: 93291 ==

== ENCOUNTER → 2024-03-06 13:19 | Outpatient (BNVA) | payer MEDICARE, SELFPAY | PROVIDERS: PCP Nurse Practitioner Family; Visit Provider Psychiatry & Neurology Neurology | DX: E55.9 Vitamin D deficiency, unspecified (principal); E78.5 Hyperlipidemia, unspecified; I48.91 Unspecified atrial fibrillation; I10 Essential (primary) hypertension; G25.0 Essential tremor; R07.9 Chest pain, unspecified; E78.1 Pure hyperglyceridemia; R06.02 Shortness of breath; I25.10 Atherosclerotic heart disease of native coronary artery without angina pectoris; B37.9 Candidiasis, unspecified; R42 Dizziness and giddiness; M1A.9XX0 Chronic gout, unspecified, without tophus (tophi) | CPT/HCPCS: 99212; 99213 ==

== ENCOUNTER 2024-03-11 10:14 | Observation (INO) | payer MEDICARE, SELFPAY ==
[2024-03-11] VITALS (10 sets, daily range): BP systolic 130–179; BP diastolic 60–119; PULSE 60–73; RESP 16–18; TEMP 36.3–37.4; O2SAT 92–96
--- NOTE | 2024-03-11 10:16 | CT_ITS ---
WS: [id number] CT CERVICAL TRAUMA TECHNIQUE: Noncontrast CT of the cervical spine with coronal and sagittal reformatted images. CLINICAL INFORMATION: Trauma COMPARISON: None. DLP: 1868.[address] scans at [facility] use at least one of these dose optimization techniques: automated e xposure control; mA and/or kV adjustment per patient size (includes targeted exams where dose is matc hed to clinical indication); or iterative reconstruction. FINDINGS: Straightening of the normal cervical lordosis. Slight anterolisthesis C5 on C6. Disc osteophyte compl ex C6-7. Normal craniocervical junction. Normal C1-C2 articulation. Dens is normal in appearance. Nor mal occipital condyles. Normal C1 ring. No evidence of acute fracture or dislocation. Disc osteophyte complexes with mild central canal stenosis C5-C6 and C6-C7 worse at C6-7. Moderate LE FT C6-7 and LEFT C7-T1 bony foraminal narrowing. Normal prevertebral soft tissues. Mastoids air cells are well aerated. CT/CT cervical spin wo con* [id number] IMPRESSION: No evidence of acute fracture or dislocation.
--- NOTE | 2024-03-11 10:16 | CT_ITS ---
WS: [id number] CT HEAD TECHNIQUE: Noncontrast CT of the head obtained from the skullbase to the vertex. CLINICAL INFORMATION: Trauma COMPARISON: None. DLP: 1868.[address] scans at [facility] use at least one of these dose optimization techniques: automated e xposure control; mA and/or kV adjustment per patient size (includes targeted exams where dose is matc hed to clinical indication); or iterative reconstruction. FINDINGS: No evidence of intracranial hemorrhage or mass effect. Ventricular system and basal cisterns are longoria nt. Moderate small vessel changes with moderate parenchymal volume loss. No extra-axial fluid collect ions. No evidence of mass or mass effect. Paranasal sinuses and mastoid air cells are well aerated. .Normal visualized soft tissues. CT/CT head wo con* [id number] IMPRESSION: 1. No evidence of intracranial hemorrhage or mass effect. 2. No acute intracranial findings.
--- NOTE | 2024-03-11 10:32 | ED_ITS ---
HPI - Dizziness 2 General: Chief Complaint: Dizziness Stated Complaint: fall, head injury Time Seen by Provider: 03/11/24 10:16 History of Present Illness: HPI Narrative: 79-year-old female presents emergency ro om with dizziness. She has some chronic dizziness issues, is worse this morning. She has been seeing neurology she had first been told she had Parkinson's he is on Sinemet twice a day they are conservative measures. Essential tremor not Parkinson's so they have been decreasing her dose he skipped a dose last night. She is extremely tremulous but that is typical. She is at her baseline mentation she is on blood thinners. She fell this morning and did hit her head. She did recently have a bladder infection well which she was treated for. Associated symptoms: Denies chest pain or chills Related Data Home Medications Medication Instructions Recorded Confirmed fluticasone propionate 50 2 spray intranasal DAILY PRN 09/15/21 03/11/24 mcg/actuation nasal Allergy Symptoms spray,suspension (Flonase Allergy Relief) allopurinol 300 mg tablet 300 mg PO DAILY PRN gout 07/29/23 03/11/24 atorvastatin 20 mg tablet 20 mg PO BEDTIME 07/29/23 03/11/24 isosorbide mononitrate 60 mg 60 mg PO QAM 07/29/23 03/11/24 tablet,extended release 24 hr loratadine 10 mg tablet 10 mg PO DAILY PRN Allergy Symptoms 07/29/23 03/11/24 primidone 50 mg tablet 50 mg PO BEDTIME 07/29/23 03/11/24 donepezil 10 mg tablet 10 mg PO DAILY 11/02/23 03/11/24 ketoconazole 2 % shampoo See Rx Instructions .Route 11/02/23 03/11/24 .COMPLEX PRN SCALP IRRITATION triamcinolone acetonide 0.1 % 1 applic topical BID 11/02/23 03/11/24 topical cream ketoconazole 2 % topical cream See Rx Instructions .Route .COMPLEX 01/11/24 03/11/24 Previous Rx's Medication Instructions Recorded rivaroxaban 20 mg tablet (Xarelto) 20 mg PO DAILY #100 tabs 04/24/23 icosapent ethyl 1 gram capsule 1 g PO DAILY #90 caps 08/07/23 (Vascepa) albuterol sulfate 90 mcg/actuation 2 inh inhalation Q8H PRN shortness 12/12/23 aerosol inhaler of breath or wheezing #8.5 grams cholecalciferol (vitamin D3) 1,250 50,000 unit PO .COMPLEX #14 caps 12/26/23 mcg (50,000 unit) capsule hydralazine 10 mg tablet 10 mg PO BID #60 tabs 01/10/24 losartan 50 mg tablet 25 mg (1/2 x 50 mg) PO DAILY #60 01/10/24 tabs amiodarone 200 mg tablet (Pacerone) 200 mg PO DAILY 30 days #30 tabs 01/13/24 alprazolam 0.5 mg tablet 0.5 mg PO BID PRN stress #60 tabs 03/06/24 carbidopa 10 mg-levodopa 100 mg 1 tab PO ONCE #7 tabs 03/06/24 tablet vitamins no.119-iron 1 tab PO DAILY #30 tabs 03/06/24 fumarate 29 mg-folic acid 1 mg tablet Allergies Allergy/AdvReac Type Severity Reaction Status Date / Time lisinopril Allergy coughing Verified 03/06/24 13:35 Review of Systems 2 Const: Denies: fever(s) or chills Card: Denies: chest pain Resp: Denies: dyspnea GI: Denies: abdominal pain : Denies: dysuria, urinary frequency or urinary urgency Musc: Denies: neck pain or back pain Skin/Breast: Denies: rash Neuro: Reports: dizziness PFSH ED 2 PFSH: Medical History Reactive airway disease Memory loss UTI (urinary tract infection) Benign positional vertigo Benign hypertension Atrial fibrillation with rapid ventricular response Hypertriglyceridemia Exertional shortness of breath Hypertensive urgency Hypertension Generalized weakness Chest pain UTI (urinary tract infection) Bradycardia CAD (coronary artery disease) Dizziness Atrial fibrillation Essential tremor Generalized weakness Lactic acidosis Acute metabolic encephalopathy Sepsis Atrial fibrillation Urinary tract infection Elevated blood pressure reading Palpitation HTN (hypertension) Gout Dyslipidemia Melanoma Surgical History Hx of cataract extraction History of cholecystectomy Status post laparoscopic cholecystectomy (03/30/20) History of removal of ovarian cyst History of carpal tunnel release S/P complete hysterectomy H/O esophagogastroduodenoscopy 1977 H/O colonoscopy 2016 Family History Mother Melanoma Diabetes Stroke Father CAD (coronary artery disease) unknown age of onset, [place] at 62 Cancer Family/Other Cancer Grandmother Cancer Brother Diabetes Denies family history of Clotting disorder Dementia Chronic kidney disease (CKD) Suicide Anesthesia complication Bleeding disorder Lung disease Social History Smoking and tobacco/nicotine status: never used tobacco/nicotine Alcohol intake: never Substance/Drug Use: never Household members: spouse Marital status: Current occupational status: retired Physical Exam 2 Const: GENERAL APPEARANCE: cooperative ORIENTATION/CONSCIOUSNESS: Yes awake, Yes oriented to person, Yes oriented to place and Yes oriented to time HENMT: COMMON NORMALS: normocephalic, atraumatic and hearing grossly normal bilaterally HEAD & SCALP: normocephalic and atraumatic Resp: COMMON NORMALS: normal respiratory effort, No retractions, No use of accessory muscles and clear to auscultation bilaterally AUSCULTATION: clear to auscultation bilaterally Cardio: COMMON NORMALS: regular rate, regular rhythm and No murmurs present (Cardio) RATE: regular rate RHYTHM: regular rhythm GI: COMMON NORMALS: Soft to palpation and No hepatosplenomegaly present A USCULTATION: Yes normoactive bowel sounds PALPATION: Yes Soft to palpation, No Tenderness to palpation present (GI), No Guarding due to palpation present (GI) and Yes No hepatosplenomegaly present Extremity: COMMON NORMALS: normal to inspection, capillary refill normal, no clubbing, cyanosis or edema, no calf tenderness and no pedal edema Neuro: SENSORIUM/ORIENTATION: Yes oriented to person, Yes oriented to place and Yes oriented to time Skin: COMMON NORMALS: no rashes or lesions noted GENERAL SKIN EXAM: no rashes or lesions noted Course 2 Vital Signs: Vital signs: Vital Signs Temperature 97.5 F L 03/11/24 10:16 Pulse Rate 63 03/11/24 15:27 Respiratory Rate 17 03/11/24 10:16 Blood Pressure 159/86 03/11/24 15:27 Pulse Oximetry 95 03/11/24 15:27 Oxygen Delivery Me thod Room Air 03/11/24 15:27 MDM - Dizziness Medical Decision Making Patient has persistent dizziness. This has been an ongoing issue for over a week it is worse today. She is outside of the 24-hour window. Is possible it is a posterior stroke. But she is outside of 24 hours. We did give her some Ativan had mild relief. Will put her on observation. Is also complicated by her medication changes send continuous tremor. Discussed with hospitalist orders written. Medical Records I reviewed the patient's medical records. Lab Data I reviewed the patient's lab results. 03/11/24 12:27 03/11/24 12:27 Radiology Impressions Cervical Spine CT 03/11/24 10:16 IMPRESSION: No evidence of acute fracture or dislocation. Head CT 03/11/24 10:16 IMPRESSION: 1. No evidence of intracranial hemorrhage or mass effect. 2. No acute intracranial findings. Laboratory Results WBC 6.35 10^3/uL (3.29-11.43) 03/11/24 12:27 RBC 4.58 10^6/uL (3.85-5.65) 03/11/24 12:27 Hgb 13.40 g/dL (11.27-16.99) 03/11/24 12:27 Hct 43.9 % (36-47) 03/11/24 12:27 MCV 95.9 fl (85-98) 03/11/24 12:27 MCH 29.3 pg (27-33) 03/11/24 12:27 MCHC 30.5 g/dL (30-55) 03/11/24 12:27 RDW 14.1 % (12.1-15.1) 03/11/24 12:27 Plt Count 212 10^3/cmm (157-399) 03/11/24 12:27 MPV 11.5 fL (7.4-10.4) H 03/11/24 12:27 Neut % (Auto) 67.8 % 03/11/24 12:27 Lymph % (Auto) 20.3 % 03/11/24 12:27 Sac % (Auto) 9.8 % 03/11/24 12:27 Eos % (Auto) 0.8 % 03/11/24 12:27 Baso % (Auto) 0.8 % 03/11/24 12:27 Neut # (Auto) 4.31 10^3/uL (1.8-7.7) 03/11/24 12:27 Lymph # (Auto) 1.3 10^3/uL (0.8-4.8) 03/11/24 12:27 Sac # (Auto) 0.6 10^3/uL (0.2-0.9) 03/11/24 12:27 Eos # (Auto) 0.1 10^3/uL (0.0-0.8) 03/11/24 12:27 Baso # (Auto) 0.1 10^3/uL (0.0-0.1) 03/11/24 12:27 Nucleated RBC % (auto) 0 % 03/11/24 12:27 Nucleated RBCs # 0.0 /100WBC 03/11/24 12:27 Sodium 140 mmol/L (136-145) 03/11/24 12:27 Potassium 4.4 mmol/L (3.5-5.1) 03/11/24 12:27 Chloride 102 mmol/L (98-107) 03/11/24 12:27 Carbon Dioxide 26 mmol/L (22-29) 03/11/24 12:27 Anion Gap 16.4 (5-19) 03/11/24 12:27 BUN 14 mg/dL (8-23) 03/11/24 12:27 Creatinine 1.1 mg/dL (0.5-0.9) H 03/11/24 12:27 GFR Calculation Not Reportable 03/11/24 12:27 Glucose 126 mg/dL (65-115) H 03/11/24 12:27 Calculated Osmolality 292 mOsm/kg (285-295) 03/11/24 12:27 Calcium 8.9 mg/dL (8.5-10.5) 03/11/24 12:27 Total Bilirubin 0.4 mg/dL (0.15-1.2) 03/11/24 12:27 AST 28 U/L (0-32) 03/11/24 12:27 ALT 30 U/L (0-33) 03/11/24 12:27 Alkaline Phosphatase 54 U/L (35-105) 03/11/24 12:27 Total Protein 7.6 g/dL (6.6-8.7) 03/11/24 12:27 Albumin 4.0 g/dL (3.5-5.2) 11/04/24 12:27 Globulin 3.6 g/dL (1.3-4.6) 03/11/24 12:27 All radiology interpretation(s) finalized by discharge Discharge Plan Discharge Patient Disposition: Placed in Observation Admit Provider: Isha Lopez Clinical Impression: Labyrinthitis, Vertigo Condition: Stable Coding Level of Care Code ED Stone Derrickman And Rigger for Celiag Fwd NIH stroke score NIHSS Level Of Consciousness - 1a: 0 Level Of Consciousness Questions - 1b: Both Correct Level Of Consciousness Commands - 1c: Both Correct Best Gaze - 2: Normal Visual Cadena - 3: No Visual Loss Facial Palsy - 4: Normal Motor Arm Right - 5: No Drift Motor Arm Left - 5: No Drift Motor Leg Right - 6: No Drift Motor Leg Left - 6: No Drift Limb Ataxia - 7: Absent Sensory - 8: Normal Best Language - 9: No Aphasia Dysarthia - 10: Normal Extinction And Inattention - 11: 0 Score Total Score: 0
[2024-03-11] MEDS: diphenhydrAMINE 50 mg/mL SDV 1mL 25 MG IVP (12:04)
[2024-03-11 12:58] LABS: Basophils # 0.1 10^3/uL (0.0-0.1); Basophils % 0.8 %; Eosinophils # 0.1 10^3/uL (0.0-0.8); Eosinophils % 0.8 %; Hematocrit 43.9 % (36-47); Lymphocytes # 1.3 10^3/uL (0.8-4.8); Lymphocytes % 20.3 %; Mean Corpuscular HGB Conc 30.5 g/dL (30-55); Mean Corpuscular Hemoglobin 29.3 pg (27-33); Mean Corpuscular Volume 95.9 fl (85-98); Mean Platelet Volume 11.5 fL (7.4-10.4); Monocytes # 0.6 10^3/uL (0.2-0.9); Monocytes % 9.8 %; Neutrophils # 4.31 10^3/uL (1.8-7.7); Neutrophils % 67.8 %; Nucleated Red Blood Cells % 0 %; Platelet Count 212 10^3/cmm (157-399); Red Blood Count 4.58 10^6/uL (3.85-5.65); Red Cell Distribution Width 14.1 % (12.1-15.1); White Blood Count 6.35 10^3/uL (3.29-11.43)
[2024-03-11 13:21] LABS: Alanine Aminotransferase 30 U/L (0-33); Alkaline Phosphatase 54 U/L (35-105); Anion Gap 16.4 (5-19); Aspartate Amino Transferase 28 U/L (0-32); Blood Urea Nitrogen 14 mg/dL (8-23); Calcium 8.9 mg/dL (8.5-10.5); Carbon Dioxide 26 mmol/L (22-29); Chloride 102 mmol/L (98-107); Creatinine Clr Calc Pharmacy 44.0296; Globulin 3.6 g/dL (1.3-4.6); Glucose 126 mg/dL (65-115); Osmolality Calculated 292 mOsm/kg (285-295); Potassium 4.4 mmol/L (3.5-5.1); Sodium 140 mmol/L (136-145); Total Bilirubin 0.4 mg/dL (0.15-1.2); Total Protein 7.6 g/dL (6.6-8.7)
--- NOTE | 2024-03-11 13:22 | PC.NURSE ---
PER VERBAL ORDER FROM DR. BAIG, ORDER AND ADMIN ATIVAN 1MG IVP ONCE.
[2024-03-11] MEDS: LORazepam 2 mg/mL INJ 1 mL 1 MG IVP (13:33)
--- NOTE | 2024-03-11 14:30 | P.HP_ITS ---
Providers/Chief Complaint 2 Primary Care Provider: CEDRIC Ayon Chief Complaint: fall, head injury History of Present Illness Kadi Hernandez is a 79 year old female With past medical history of essential tremors, possible Parkinson's disease, bradycardia, hypertension, coronary disease, dizziness, dyslipidemia presented to the hospital today with complaint of dizziness. Patient's son presents to history which is what his dad told him. 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 After he went towards his he noticed that she was confused and complaining of severe dizziness. She said everything was spinning. She sat on the side of the bed. .patient to stand up but she bumped the side of her head again and did not experience any loss of consciousness. He was able to get the patient to the bathroom however she kept complaining of severe dizziness. Patient went back to bed at that point. When she woke up at 9 AM she still was dizzy and still appeared somewhat confused. She also felt that she was very nauseous and had some retching however did not vomit. Patient had dry heaving. And remained on the floor until EMS arrived. She has had decreased appetite for last 2 days. She does have a loop recorder in place. ER doctor reported that in the past MRI has not been done secondary to loop recorder not being compatible?. I did call the plant tech to verify this. We will check in the morning and if loop recorder is compatible we will go ahead and order an MRI head. Also discussed with Dr. Montano on the phone. If loop recorder is not compatible Dr. Montano may go ahead and remove it so MRI can be completed. Of note patient has been seeing neurology as an outpatient and currently has been titrated off the Sinemet. She also had a recent prescription given to her for Xanax. Patient is also on amiodarone at home. Donepezil hydralazine Imdur and losartan. She also takes Xarelto. CT head at today's visit was negative. Medications/Allergies Home Medications Medication Instructions Recorded Confirmed Last Taken Type fluticasone propionate 50 2 spray intranasal DAILY PRN 09/15/21 03/11/24 Unknown History mcg/actuation nasal Allergy Symptoms spray,suspension (Flonase Allergy Relief) rivaroxaban 20 mg tablet (Xarelto) 20 mg PO DAILY #100 tabs 04/24/23 03/11/24 03/10/24 Rx allopurinol 300 mg tablet 300 mg PO DAILY PRN gout 07/29/23 03/11/24 10/15/23 History atorvastatin 20 mg tablet 20 mg PO BEDTIME 07/29/23 03/11/24 03/10/24 History isosorbide mononitrate 60 mg 60 mg PO QAM 07/29/23 03/11/24 03/10/24 History tablet,extended release 24 hr loratadine 10 mg tablet 10 mg PO DAILY PRN Allergy Symptoms 07/29/23 03/11/24 11/12/23 History icosapent ethyl 1 gram capsule 1 g PO DAILY #90 caps 08/07/23 03/11/24 03/10/24 Rx (Vascepa) donepezil 10 mg tablet 10 mg PO DAILY 11/02/23 03/11/24 03/10/24 History ketoconazole 2 % shampoo See Rx Instructions .Route 11/02/23 03/11/24 11/17/23 History .COMPLEX PRN SCALP IRRITATION triamcinolone acetonide 0.1 % 1 applic topical BID 11/02/23 03/11/24 Unknown History topical cream albuterol sulfate 90 mcg/actuation 2 inh inhalation Q8H PRN shortness 12/12/23 03/11/24 03/10/24 Rx aerosol inhaler of breath or wheezing #8.5 grams cholecalciferol (vitamin D3) 1,250 50,000 unit PO .COMPLEX #14 caps 12/26/23 03/11/24 Unknown Rx mcg (50,000 unit) capsule hydralazine 10 mg tablet 10 mg PO BID #60 tabs 01/10/24 03/11/24 03/10/24 Rx losartan 50 mg tablet 25 mg (1/2 x 50 mg) PO DAILY #60 01/10/24 03/11/24 Unknown Rx tabs ketoconazole 2 % topical cream See Rx Instructions .Route .COMPLEX 01/11/24 03/11/24 Unknown History amiodarone 200 mg tablet (Pacerone) 200 mg PO DAILY 30 days #30 tabs 01/13/24 03/11/24 03/10/24 Rx vitamins no.119-iron 1 tab PO DAILY #30 tabs 03/06/24 03/11/24 03/10/24 Rx fumarate 29 mg-folic acid 1 mg tablet alprazolam 0.5 mg tablet 0.25 mg (1/2 x 0.5 mg) PO BID PRN 03/12/24 03/11/24 03/10/24 Rx stress #10 tabs meclizine 25 mg tablet 25 mg PO TID PRN Dizziness #10 tabs 03/12/24 Unknown Rx Allergies Allergy/AdvReac Type Severity Reaction Status Date / Time lisinopril Allergy coughing Verified 03/06/24 13:35 PFSH Acute 2 PFSH: Medical History Reactive airway disease Memory loss UTI (urinary tract infection) Benign positional vertigo Benign hypertension Atrial fibrillation with rapid ventricular response Hypertriglyceridemia Exertional shortness of breath Hypertensive urgency Hypertension Generalized weakness Chest pain UTI (urinary tract infection) Bradycardia CAD (coronary artery disease) Dizziness Atrial fibrillation Essential tremor Generalized weakness Lactic acidosis Acute metabolic encephalopathy Sepsis Atrial fibrillation Urinary tract infection Elevated blood pressure reading Palpitation HTN (hypertension) Gout Dyslipidemia Melanoma Surgical History Hx of cataract extraction History of cholecystectomy Status post laparoscopic cholecystectomy (03/30/20) History of removal of ovarian cyst History of carpal tunnel release S/P complete hysterectomy H/O esophagogastroduodenoscopy 1977 H/O colonoscopy 2016 Family History Mother Melanoma Diabetes Stroke Father CAD (coronary artery disease) unknown age of onset, [place] at 62 Cancer Family/Other Cancer Grandmother Cancer Brother Diabetes Denies family history of Clotting disorder Dementia Chronic kidney disease (CKD) Suicide Anesthesia complication Bleeding disorder Lung disease Social History Smoking and tobacco/nicotine status: never used tobacco/nicotine Alcohol intake: never Substance/Drug Use: never Household members: spouse Marital status: Current occupational status: retired Vitals/I&O/Wt Last Vital Signs Temp 97.5 F L 03/11/24 10:16 Pulse 62 03/11/24 13:38 Resp 17 03/11/24 10:16 BP 169/68 03/11/24 13:38 Pulse Ox 95 03/11/24 13:38 O2 Del Method Room Air 03/11/24 13:38 Weight last 48 hrs Weight 92.986 kg Physical Exam 2 Narrative: General: Alert oriented x3, patient seen laying in bed appearing comfortable at this time. Does have a head tremor. Son at bedside. HEENT: Normocephalic, atraumatic, EOMI, breathing room air. Cardio: Regular rate rhythm, normal S1-S2, Respiratory: Good bilateral air entry, no wheezes no rhonchi appreciated GI: Abdomen soft, nontender, nondistended, bowel sounds + Behavior: Appropriate and cooperative Extremities: Pulses 2+, no edema, no cyanosis Neuro: Nonfocal. Does have postural tremor. Data 03/12/24 04:46 03/12/24 04:46 A&P Assessment and plan (1) Dyslipidemia: (2) Labyrinthitis: (3) Vertigo: (4) Objective vertigo: (5) Essential tremor: Plan #Dizziness, most likely vertigo #History of essential postural tremor #Possibility of Parkinson's in the past??Sinemet being weaned off #Xanax use at home #Chronic anticoagulation with Xarelto #Coronary artery disease, hypertension #Bradycardia tacky bradycardia? #Has a loop recorder in place ? Neurology consulted. Will await recommendations ? Continue on telemetry ? Start normal saline 100 cc/h ? Told patient to lay flat to increase blood circulation to the brain. ? Posterior circulation stroke will need to be ruled out?. Patient not a candidate for any thrombolytics since she is chronically on Xarelto. added aspirin. ? Patient will need an MRI brain for further diagnostic workup. Auditory canals will need to be looked at as well. ? Recommend ENT follow-up as an outpatient ? Will discuss with plant tech regarding loop recorder compatibility. If compatible we will proceed with MRI otherwise we will discuss with cardiology to have it removed. Discussed this with family and they are okay to proceed with MRI and willing to have loop recorder removed if needed. ? Patient recently had a Xanax added to home regimen. Will hold for now. plce on iv fluids and get pt to lay flat to improve circulation to brain consult neurology Full Code DVT ppx: heparin subc bid Attestations 2 Medical Necessity Statement*: observation for workup of dizziness Diagnoses Dyslipidemia E78.5 Labyrinthitis H83.09 Vertigo R42 Objective vertigo R42 Essential tremor G25.0
--- NOTE | 2024-03-11 16:43 | USCV_ITS ---
Kadi Hernandez Age: 79 Gender: F : 1945 Exam Date: 03/11/2024 18:45 Ordering Phys: Isha Lopez MD Technologist: ELVIS Exam Location: [facility] [place] Indication: stroke, chronic dizziness, Parkison's BP: 142 / 119 HR: 64 Rhythm: Sinus Technical Quality: Adequate MEASUREMENTS (Male / Female) Normal Values 2D ECHO LV Diastolic Diameter PLAX 4.3 cm 4.2 - 5.9 / 3.9 - 5.3 cm IVS Diastolic Thickness 1.3 cm 0.6 - 1.0 / 0.6 - 0.9 cm IVS Systolic Thickness 1.9 cm LVPW Diastolic Thickness 2.2 cm 0.6 - 1.0 / 0.6 - 0.9 cm LVPW Systolic Thickness 1.8 cm LVOT Diameter 2.4 cm LV Ejection Fraction 2D Teich 59.0 % LV Ejection Fraction MOD 4C 61.2 % LV Ejection Fraction MOD 2C 64.3 % LV Ejection Fraction 2C AL 66.7 % LA Diameter 4.4 cm LA Sys Volume AL 76.8 cm cubed LA Sys Volume Index AL 37.2 cm cubed/m squared Aorta at Sinotubular Diameter 2.5 cm IVC Diameter 1.1 cm M-MODE LA Ao Ratio MM 1.9 AV Cusp Separation MM 1.8 cm DOPPLER AV Peak Velocity 179.0 cm/s LVOT Peak Velocity 113.0 cm/s AV Area Cont Eq vti 3.4 cm squared AV Area Cont Eq pk 2.7 cm squared MV Area PHT 3.4 cm squared Mitral E to A Ratio 1.0 TV Peak Velocity 262.0 cm/s TV Peak E Velocity 40.0 cm/s Right Atrial Pressure 10.0 mmHg PV Peak Velocity 120.0 cm/s FINDINGS Left Ventricle Normal left ventricular size, systolic function and wall thickness, with no regional wall motion abnormalities. Left ventricular ejection fraction is estimated at 60 %. Grade I/IV diastolic dysfunction (abnormal relaxation filling pattern), normal to mildly elevated filling pressures. Right Ventricle The right ventricle is normal in size and function. Right Atrium The right atrium is normal in size. Left Atrium Moderately increased left atrial size. Mitral Valve Structurally normal mitral valve without significant stenosis or prolapse. There is no mitral regurgitation. Aortic Valve Moderate aortic valve calcification. No aortic valve stenosis. Trace aortic valve regurgitation. Tricuspid Valve Structurally normal tricuspid valve without significant stenosis or regurgitation. Pulmonic Valve Structurally normal pulmonic valve without significant stenosis. There is no pulmonic regurgitation. Pericardium Normal pericardium without effusion. Aorta Normal ascending aorta dimension. IVC The inferior vena cava appears normal. CONCLUSIONS Normal left ventricular size, systolic function and wall thickness, with no regional wall motion abnormalities. Left ventricular ejection fraction is estimated at 60 %. Grade I/IV diastolic dysfunction (abnormal relaxation filling pattern), normal to mildly elevated filling pressures. Moderately increased left atrial size. Moderate aortic valve calcification. No aortic valve stenosis. Trace aortic valve regurgitation. There is no pericardial effusion. Right atrial pressure is around 5 mm of mercury. Wendie Dahl MD (Electronically Signed) Final Date: 12 March 2024 22:18 S
--- NOTE | 2024-03-11 17:16 | P.CONIM_ITS ---
Providers/Reason For Consult 2 Consulting Physician/Specialty*: Jose Angel Kelsey MD neurology and epilepsy Reason for Consult*: Objective vertigo Attending Physician: Isha Lopez MD Primary Care Provider: CEDRIC Ayon History of Present Illness History of Present Illness Primary CARE physician: CEDRIC Ayon Reason for consultation: Objective vertigo exacerbated on 03/11/2024 and history of essential tremor for greater than 30 years History of present illness: 79-year-old female with a history of atrial fibrillation treated with Xarelto, tachybradycardia syndrome with loop recorder for 2 years, and essential tremor for greater than 30 years. Patient stated that she was seen by neurologist in [facility], Dr. Oliveira for essential tremor and memory difficulty. The patient reported that she has had difficulty holding objects such as a coffee cup or writing because of the tremor. She also reported titubation of her head and neck as well for greater than 30 years. According to the patient her tremor started in her head and neck and then progressed to involve her arms. Patient denied gait difficulty. Patient stated she was started on Aricept for memory and propranolol and primidone for essential tremor. Patient also stated that she was started on Sinemet for tremor. Patient reports she has continued to experience the tremors in her hands bilaterally and head and neck. The patient stated that the only thing that has helped is to sit on her hands. The patient has also been reported to have recurrent episodes of recurrent atrial fibrillation with rapid ventricular response requiring recent hospitalization in November 2023 and intravenous Cardizem drip followed by amiodarone to stabilize her cardiac arrhythmia. Propranolol was discontinued during the hospitalization but patient was reported to have tachycardia in the upper 130s and patient was restarted on propranolol 10 mg p.o. 3 times daily. The patient was discharged to home with continued cardiac loop recorder monitoring to determine if pacemaker placement is indicated. In view of the patient's history of essential tremor patient was referred for neurological assessment at [facility] neurology clinic. I reviewed the patient's medications with the patient and the patient's and son who were present during this initial neurological assessment. I informed the patient and the patient's family that the low-dose primidone is probably not enough medication to help her essential tremor nor interfere with her Xarelto. I informed them also that the Aricept may be contributing to the patient's episodes of bradycardia as well as the propranolol. The patient's family informed me that the extension forester decreased the propranolol which was once 80 mg a day and then decrease down to 20 mg 3 times a day and currently the patient is on 10 mg 3 times a day. Since the patient's MMSE = 23/30 on 12/18/2023, I informed the family will consider discontinuing Aricept if the patient experiences any further bradycardia and consider a trial of Namenda (memantine) for memory loss. The family were informed that Namenda and postmarketing reports has been reported to be associated with congestive heart failure in some patients as well as a 3% chance of syncope but is usually not associated with bradycardia. I also informed the family may consider increasing the primidone if no contraindications from patient's anticoagulation standpoint on Xarelto or consider a trial of Neurontin, Lamictal, or Keppra for essential tremor especially if cardiology determines that the propranolol should be further tapered and discontinued secondary to episodes of bradycardia. The patient stated that she has a follow-up with the extension forester later in December 2023 to determine if the patient requires pacemaker or further medication treatment if any further indication of bradycardic episodes or tachycardic episodes are observed on the loop monitor. The patient underwent a noncontrast head CT on 11/02/2023 which was reported to be negative. Because of the loop recorder, head MRI was not performed. The patient underwent a carotid duplex study on 03/27/2023 which was reported to be negative. Patient is currently on the care of cardiology. During the patient initial clinic visit she was scheduled for labs for APOE genotype, vitamin D, B12, folate, methylmalonic acid, homocystine, FTA antibody, RPR and magnesium level. Vitamin D level was significantly decreased at 7.0 (normal 30-100). The patient's other labs were unrevealing. APOE genotype was normal with E3/E3 genotype. The patient's family was contacted regarding the significantly decreased vitamin D level and the patient was started on vitamin D3 50,000 international units p.o. weekly. The patient presented for reassessment accompanied by the family. According to the patient's family, propranolol was discontinued secondary to bradycardia and patient was started on losartan and hydralazine for blood pressure. According to the family, the patient's tremor became worse after the propranolol was discontinued. The family stated the patient was given an anxiety medication which the family thinks was Xanax. I reviewed the patient's medication list but there was no list of the medication. The patient's family stated that the patient was started on Xanax her chest pain resolved and her tremor improved. The family of the patient stated the patient was only on the medication for a month but the medication really helped with the patient's tremors. Since the patient denied any benefit from the Sinemet for the essential tremor recommended tapering and discontinuing the Sinemet to simplify the patient's medication regiment. On 03/06/2024 the patient was instructed to take Sinemet 10/100 mg tablets 1 p.o. daily for 1 week then discontinue Sinemet secondary to lack of benefit with regards to essential tremor. I agreed to write a prescription for Xanax 0.5 mg p.o. twice daily for essential tremor and increase as needed/tolerated on 03/06/2024. Potential side effects of Xanax (alprazolam) was discussed with the patient and the patient's family. The patient was reported to be doing fairly well until 03/10/2024. On the morning of 03/10/2024 the patient was reported to complain of some mild dizziness but otherwise was in her usual state of health. On the morning of 03/11/2024 around 5 AM the stated that he got up to go to the bathroom and accidentally bumped an object in the bedroom and startled the patient and woke her up. The patient's stated that after arousing his his appeared confused and complaining of severe objective vertigo and stated that everything was spinning. The patient initially tried to go to the bathroom but complained of severe dizziness while sitting on the side of her bed. The stated that when he attempted to assist the patient to stand up the patient fell and bumped the side of her head but did not experience any loss of consciousness. After several minutes the patient's stated he was able to assist the patient to the bathroom since the patient was still complaining of severe dizziness with everything spinning around. The patient then went back to bed. The stated that he checked on his around 9 AM on 03/11/2024. He stated that he could hear her breathing and she was sleeping. But when he aroused her at 9 AM she still reported severe dizziness and according to the patient's the patient appeared confused. The patient's stated the patient dizziness did not improve and therefore he was assisting his with putting on her pants and the patient was reported to fall to the floor and experienced near syncope with some decreased level consciousness with confusion as well as dry heaving with nausea. The patient remained on the floor until EMS arrived and the patient was brought to [facility] emergency department. According to the patient's family, the patient had decreased fluids and food intake on 03/10/2024 and no food or water intake on 03/11/2024 and patient denied any fluids or food intake at 5:30 PM on 03/11/2024. I recommended the patient be started on IV fluids for hydration as well as start her on her cardiac diet. Also recommended trying Antivert 25 mg p.o. 4 times a day for vertigo. Noncontrast head CT scan was obtained on 03/11/2024 and revealed no acute findings. CT of the cervical spine was also performed on 03/11/2024 and revealed no acute findings. CT angiogram of the head and neck performed on 01/09/2024 was unrevealing. In view of the patient's loop recorder head MRI could not be performed. In view of the patient's exacerbation of objective vertigo worse with turning her head or changing positions, the patient was admitted for further evaluation. I agreed with the hospitalist speaking with cardiology regarding whether or not the loop recorder can be removed in order to obtain head MRI with and without contrast with MRI of the internal auditory canals bilaterally. This evening on 03/11/2024 the patient also reported bilateral ear discomfort. I recommend patient be evaluated by ENT. Drug allergies: Lisinopril which resulted in a cough Current medications: Xarelto 20 mg p.o. daily for atrial fibrillation Xanax (alprazolam) 0.5 mg p.o. twice daily for essential tremor Vitamin D3 50,000 international units p.o. every week Sinemet 10 mg/100 mg tablets 1 p.o. twice daily for tremor ( Decrease Sinemet 10/100 mg tablets to 1 p.o. daily for 1 week then discontinue Sinemet secondary to lack of benefit with regards to essential tremor ordered on 03/06/2024) Primidone 50 mg p.o. nightly for essential tremor Aricept 10 mg p.o. nightly for memory loss Amiodarone 200 mg tablets 2 p.o. twice daily for irregular heart rhythm Isosorbide mononitrate ER 60 mg p.o. daily Claritin 10 mg p.o. daily as needed for allergy Flonase allergy relief 50 mcg per accusation 2 sprays intranasally daily as needed for allergy symptoms Vascepa 1 g p.o. daily Hydralazine 10 mg p.o. twice daily Lipitor 20 mg p.o. nightly Allopurinol 300 mg p.o. daily for gouty arthritis Albuterol multidose inhaler 90 mcg per accusation 2 puffs every 8 hours as needed Losartan 25 mg p.o. daily Past medical history: Atrial fibrillation treated with Xarelto Tacky-bradycardia syndrome Essential tremor for greater than 30 years Benign hypertension Hypertriglyceridemia Coronary atherosclerotic heart disease Exertional shortness of breath Gout Asthma Frequent episodes of pneumonia Cardiac loop recorder for 2 years Vitamin D deficiency, severe Past medications: Propranolol 10 mg p.o. 3 times daily for essential tremor (higher doses resulted in bradycardia) Methenamine Habits: None. Patient denied ever smoking or drinking. Family history: Remarkable for mother and brother with tremors Social history: The patient lives with her Review of Systems 2 General: Reports: 10 or more systems reviewed and unremarkable except in HPI and below Medications/Allergies Home Medications Medication Instructions Recorded Confirmed Last Taken Type fluticasone propionate 50 2 spray intranasal DAILY PRN 09/15/21 03/11/24 Unknown History mcg/actuation nasal Allergy Symptoms spray,suspension (Flonase Allergy Relief) rivaroxaban 20 mg tablet (Xarelto) 20 mg PO DAILY #100 tabs 04/24/23 03/11/24 03/10/24 Rx allopurinol 300 mg tablet 300 mg PO DAILY PRN gout 07/29/23 03/11/24 10/15/23 History atorvastatin 20 mg tablet 20 mg PO BEDTIME 07/29/23 03/11/24 03/10/24 History isosorbide mononitrate 60 mg 60 mg PO QAM 07/29/23 03/11/24 03/10/24 History tablet,extended release 24 hr loratadine 10 mg tablet 10 mg PO DAILY PRN Allergy Symptoms 07/29/23 03/11/24 11/12/23 History primidone 50 mg tablet 50 mg PO BEDTIME 07/29/23 03/11/24 03/10/24 History icosapent ethyl 1 gram capsule 1 g PO DAILY #90 caps 08/07/23 03/11/24 03/10/24 Rx (Vascepa) donepezil 10 mg tablet 10 mg PO DAILY 11/02/23 03/11/24 03/10/24 History ketoconazole 2 % shampoo See Rx Instructions .Route 11/02/23 03/11/24 11/17/23 History .COMPLEX PRN SCALP IRRITATION triamcinolone acetonide 0.1 % 1 applic topical BID 11/02/23 03/11/24 Unknown History topical cream albuterol sulfate 90 mcg/actuation 2 inh inhalation Q8H PRN shortness 12/12/23 03/11/24 03/10/24 Rx aerosol inhaler of breath or wheezing #8.5 grams cholecalciferol (vitamin D3) 1,250 50,000 unit PO .COMPLEX #14 caps 12/26/23 03/11/24 Unknown Rx mcg (50,000 unit) capsule hydralazine 10 mg tablet 10 mg PO BID #60 tabs 01/10/24 03/11/24 03/10/24 Rx losartan 50 mg tablet 25 mg (1/2 x 50 mg) PO DAILY #60 01/10/24 03/11/24 Unknown Rx tabs ketoconazole 2 % topical cream See Rx Instructions .Route .COMPLEX 01/11/24 03/11/24 Unknown History amiodarone 200 mg tablet (Pacerone) 200 mg PO DAILY 30 days #30 tabs 01/13/24 03/11/24 03/10/24 Rx alprazolam 0.5 mg tablet 0.5 mg PO BID PRN stress #60 tabs 03/06/24 03/11/24 03/10/24 Rx carbidopa 10 mg-levodopa 100 mg 1 tab PO ONCE #7 tabs 03/06/24 03/11/24 03/10/24 Rx tablet vitamins no.119-iron 1 tab PO DAILY #30 tabs 03/06/24 03/11/24 03/10/24 Rx fumarate 29 mg-folic acid 1 mg tablet Allergies Allergy/AdvReac Type Severity Reaction Status Date / Time lisinopril Allergy coughing Verified 03/06/24 13:35 PFSH Acute 2 PFSH: Medical History Reactive airway disease Memory loss UTI (urinary tract infection) Benign positional vertigo Benign hypertension Atrial fibrillation with rapid ventricular response Hypertriglyceridemia Exertional shortness of breath Hypertensive urgency Hypertension Generalized weakness Chest pain UTI (urinary tract infection) Bradycardia CAD (coronary artery disease) Dizziness Atrial fibrillation Essential tremor Generalized weakness Lactic acidosis Acute metabolic encephalopathy Sepsis Atrial fibrillation Urinary tract infection Elevated blood pressure reading Palpitation HTN (hypertension) Gout Dyslipidemia Melanoma Surgical History Hx of cataract extraction History of cholecystectomy Status post laparoscopic cholecystectomy (03/30/20) History of removal of ovarian cyst History of carpal tunnel release S/P complete hysterectomy H/O esophagogastroduodenoscopy 1977 H/O colonoscopy 2016 Family History Mother Melanoma Diabetes Stroke Father CAD (coronary artery disease) unknown age of onset, [place] at 62 Cancer Family/Other Cancer Grandmother Cancer Brother Diabetes Denies family history of Clotting disorder Dementia Chronic kidney disease (CKD) Suicide Anesthesia complication Bleeding disorder Lung disease Social History Smoking and tobacco/nicotine status: never used tobacco/nicotine Alcohol intake: never Substance/Drug Use: never Household members: spouse Marital status: Current occupational status: retired Vitals/I&O/Wt Last Vital Signs Temp 97.5 F L 03/11/24 10:16 Pulse 70 03/11/24 16:57 Resp 17 03/11/24 10:16 BP 142/119 03/11/24 16:57 Pulse Ox 92 03/11/24 16:57 O2 Del Method Room Air 03/11/24 15:27 Weight last 48 hrs Weight 205 lb Physical Exam 2 Narrative: December 18, 2023 MMSE =23/30 (patient did not know the current year, day of the week or date. She thought she was on the second floor instead of the third floor. Patient was able to recall 3 out of 3 jobs immediately but not with recall and cues following a delay patient obtained 0 out of 3 objects). (03/11/2024) Blood pressure blood pressure 142/119 heart rate 70 O2 saturation 92% on room air Temperature 97.5 ?F respiration 17 The patient was alert and oriented to person place and situation. Head normocephalic. Head and neck revealed titubation. Patient also displayed postural tremor in her hands bilaterally. Pupils 4 mm round reactive to light and accommodation. Extraocular movements intact. There were no nystagmus. Motor testing 5/5 bilaterally. Deep tendon reflexes 2+ bilaterally except for trace at the Achilles bilaterally. Plantar responses flexor bilaterally. There was no clonus. Sensory examination was intact to touch. Gait was not tested secondary to complaints of severe vertigo. Throat clear. Lungs clear. Heart regular rhythm and rate. Extremities were negative for cyanosis. Data 03/11/24 12:27 03/11/24 12:27 A&P Assessment and plan (1) Objective vertigo: 1. Severe objective vertigo 2. Subjective complaints of bilateral ear pain 3. Essential tremor for greater than 30 years 4. Atrial fibrillation treated with Xarelto 5. Tachybradycardia syndrome 6. Cardiac loop recorder x 2 years 7. Memory loss treated with Aricept (MMSE 23/30 on 12/18/2023) 8. Episodes of bradycardia, possibly exacerbated by propranolol and Aricept, improved after discontinuing propranolol by another physician 8. Asthma 10. Benign essential hypertension 11. Vitamin D deficiency, severe (patient started on vitamin D3 50,000 international units p.o. weekly for December 2023) Plan: 1. Decrease Xanax 0.25 mg p.o. twice daily for essential tremor and consider further tapering discontinuation if patient's itching is considered to be related to the Xanax. 2. Potential side effects of Xanax were discussed with the patient and the patient's family was present during this follow-up clinic visit on 03/06/2024 3. Continue to taper and discontinue Sinemet 10/100 mg tablets to 1 p.o. daily for 1 week then discontinue Sinemet secondary to lack of benefit with regards to essential tremor 4. Continue vitamin D3 50,000 international units p.o. weekly 5. Multivitamin with 1 mg folate p.o. daily 6. Recommend cardiac telemetry monitoring during his hospitalization 7. Recommend ENT evaluation for vertigo and complaints of bilateral ear discomfort 8. Recommend head MRI with and without contrast as well as MRI of the internal auditory canals bilaterally with contrast once the patient's loop recorder has been removed 9. Antivert 25 mg p.o. 4 times a day for vertigo 10. Zofran 4 mg IV every 4-6 hours as needed for nausea vomiting 11. Recommend starting IV fluid 75 cc/h 12. Recommend starting cardiac diet 13. Fall precautions 14. Recommend cardiac evaluation to determine if loop recorder can be removed 15. Consider discontinuing Aricept and giving patient a trial of Namenda for memory loss if patient experiences any further episodes of bradycardia since Aricept, galantamine and Exelon can be associated with bradycardia secondary to boosting acetylcholine. Note: Since Namenda can potentially be associated with cardiac issues will use this medication with caution if it is needed. Note: Since the patient is on Xarelto, the patient is not a candidate for Leqembi or Kisnula for dementia secondary to increased risk of brain hemorrhage (2) Near syncope: (3) Essential tremor: Consult Attestations 2 Medical Necessity Statement: The patient was evaluated by neurology for severe vertigo and essential tremor Coding Level of Care Code 41289 Diagnoses Objective vertigo R42 Near syncope R55 Essential tremor G25.0
[2024-03-11] MEDS: sodium chloride 0.9% 1,000 ML 75 ML IV (17:38)
[2024-03-11 18:10] LABS: Thyroid Stimulating Hormone 0.74 uIU/mL (0.27-4.20)
[2024-03-11] MEDS: atorvastatin 40 mg Tablet 20 MG PO (20:40)
[2024-03-11] MEDS: meclizine 25 mg tablet PO (20:40)
[2024-03-11 21:25] LABS: Estmated Average Glucose 131; Hemoglobin A1C 6.2 % (4.0-6.0)
[2024-03-12 04:04] VITALS: BP 136/72; PULSE 73; RESP 18; TEMP 36.6; O2SAT 93
[2024-03-12 05:10] VITALS: PULSE 63
[2024-03-12 05:26] LABS: Basophils # 0.1 10^3/uL (0.0-0.1); Basophils % 1.2 %; Eosinophils # 0.2 10^3/uL (0.0-0.8); Eosinophils % 2.7 %; Hematocrit 41.8 % (36-47); Lymphocytes # 1.9 10^3/uL (0.8-4.8); Lymphocytes % 32.3 %; Mean Corpuscular HGB Conc 31.1 g/dL (30-55); Mean Corpuscular Hemoglobin 30.1 pg (27-33); Mean Corpuscular Volume 96.8 fl (85-98); Mean Platelet Volume 11.6 fL (7.4-10.4); Monocytes # 0.8 10^3/uL (0.2-0.9); Monocytes % 12.6 %; Neutrophils # 3.05 10^3/uL (1.8-7.7); Nucleated Red Blood Cells % 0 %; Platelet Count 184 10^3/cmm (157-399); Red Blood Count 4.32 10^6/uL (3.85-5.65); Red Cell Distribution Width 13.9 % (12.1-15.1); White Blood Count 5.97 10^3/uL (3.29-11.43)
[2024-03-12 05:45] LABS: Anion Gap 15.9 (5-19); Blood Urea Nitrogen 15 mg/dL (8-23); Calcium 9.1 mg/dL (8.5-10.5); Carbon Dioxide 27 mmol/L (22-29); Chloride 103 mmol/L (98-107); Creatinine Clr Calc Pharmacy 41.1989; Glucose 125 mg/dL (65-115); Magnesium 1.6 mg/dL (1.7-2.3); Osmolality Calculated 296 mOsm/kg (285-295); Potassium 3.9 mmol/L (3.5-5.1); Sodium 142 mmol/L (136-145)
[2024-03-12] MEDS: isosorbide mononitrate ER 60 mg Tablet PO (06:05)
[2024-03-12] MEDS: sodium chloride 0.9% 1,000 ML 75 ML IV (06:06)
[2024-03-12 07:35] VITALS: BP 108/65; PULSE 64; RESP 16; TEMP 36.7; O2SAT 94
--- NOTE | 2024-03-12 08:25 | MR_ITS ---
WS: [id number] MRA ANGIOGRAPHY [place] HISTORY: extreme vertigo COMPARISON: CT angiogram 01/09/2024 TECHNIQUE: 3-D MR angiography is performed of the [place] of [place]. All images are reviewed including source images. Distal vertebral and basilar arteries are intact with no significant stenosis or plaque. Mildly domin ant LEFT vertebral artery. Posterior cerebral arteries are normal course and caliber. Posterior commu nicating arteries are both patent. Intracranial portion of the internal carotid arteries are normal course and caliber. No significant a therosclerosis, stenosis or aneurysm identified. Middle and anterior cerebral arteries are both paten t with no significant disease. Anterior communicating artery is also normal. MR/MR angio head wo con [id number] IMPRESSION: Normal MRA [place] of [place].
--- NOTE | 2024-03-12 08:25 | MR_ITS ---
WS: [id number] MRI BRAIN WITH HIGH-RESOLUTION IMAGING THROUGH THE INTERNAL AUDITORY CANALS WITHOUT AND WITH CONTRAST HISTORY: extreme vertigo COMPARISON: None available. TECHNIQUE: Multiplanar, multisequence imaging is performed through the brain. Additional 3 mm imaging performed in multiple planes through the internal auditory canal. Postcontrast imaging with 20 ml's of MultiHance. No acute intracranial hemorrhage, midline shift, edema or mass effect. Minimal small vessel ischemic changes. No prior infarct. Mild volume loss throughout the brain. Mild bilateral hippocampal atrophy. Ventricles and extra-axial spaces are normal. No inferior displacement of cerebellar tonsils. Clivus and pituitary gland are normal. Internal and external auditory canals: Unremarkable. Cranial nerves VII and VIII complexes: Unremarkable. No enhancement or mass. Cerebellopontine angles: Normal. Paranasal sinuses: Normal. Mastoid air cells: Moderate fluid in the LEFT mastoid air cells. RIGHT mastoid air cells are clear. T here is no mass or signal abnormality along the parapharyngeal soft tissues. Calvarium and scalp: Normal. Visualized [place] and dural venous sinuses demonstrate no abnormality. MR/MR iac's wo/w con* [id number] IMPRESSION: 1. No acute intracranial hemorrhage, edema or infarct. 2. Mild volume loss and atrophy. 3. Moderate fluid in the LEFT mastoid air cells. 4. No mass or signal abnormality along the internal auditory canals or cerebel lopontine angles. 5. Mild bilateral hippocampal atrophy.
[2024-03-12] MEDS: gadobenate dimeglumine 20 mL vial IV (10:22)
[2024-03-12] MEDS: rivaroxaban 10 mg Tablet 20 MG PO (10:38)
[2024-03-12 10:39] VITALS: BP 108/65
[2024-03-12] MEDS: meclizine 25 mg tablet PO (10:39)
[2024-03-12] MEDS: aspirin 81 mg EC Tablet PO (10:39)
[2024-03-12] MEDS: losartan 50 mg Tablet 25 MG PO (10:39)
[2024-03-12] MEDS: magnesium sulfate premix 2 GM/50 ML PIGGYBACK IV (10:40)
[2024-03-12] MEDS: flu vacc pf 24-25 (6 mos+) SYRINGE 45 MCG IM (10:41)
[2024-03-12 11:00] VITALS: BP 145/74; PULSE 61; RESP 17; TEMP 36.6; O2SAT 94
--- NOTE | 2024-03-12 11:42 | P.PN_ITS ---
Subjective 2 Subjective: Reason for consultation: Objective vertigo exacerbated on 03/11/2024 and history of essential tremor for greater than 30 years History of present illness: 79-year-old female with a history of atr ial fibrillation treated with Xarelto, tachybradycardia syndrome with loop recorder for 2 years, and essential tremor for greater than 30 years. Patient stated that she was seen by neurologist in [facility], Dr. Oliveira for essential tremor and memory difficulty. The patient reported that she has had difficulty holding objects such as a coffee cup or writing because of the tremor. She also reported titubation of her head and neck as well for greater than 30 years. According to the patient her tremor started in her head and neck and then progressed to involve her arms. Patient denied gait difficulty. Patient stated she was started on Aricept for memory and propranolol and primidone for essential tremor. Patient also stated that she was started on Sinemet for tremor. Patient reports she has continued to experience the tremors in her hands bilaterally and head and neck. The patient stated that the only thing that has helped is to sit on her hands. The patient has also been reported to have recurrent episodes of recurrent atrial fibrillation with rapid ventricular response requiring recent hospitalization in November 2023 and intravenous Cardizem drip followed by amiodarone to stabilize her cardiac arrhythmia. Propranolol was discontinued during the hospitalization but patient was reported to have tachycardia in the upper 130s and patient was restarted on propranolol 10 mg p.o. 3 times daily. The patient was discharged to home with continued cardiac loop recorder monitoring to determine if pacemaker placement is indicated. In view of the patient's history of essential tremor patient was referred for neurological assessment at [facility] neurology clinic. I reviewed the patient's medications with the patient and the patient's and son who were present during this initial neurological assessment. I informed the patient and the patient's family that the low-dose primidone is probably not enough medication to help her essential tremor nor interfere with her Xarelto. I informed them also that the Aricept may be contributing to the patient's episodes of bradycardia as well as the propranolol. The patient's family informed me that the parts salesman decreased the propranolol which was once 80 mg a day and then decrease down to 20 mg 3 times a day and currently the patient is on 10 mg 3 times a day. Since the patient's MMSE = 23/30 on 12/18/2023, I informed the family will consider discontinuing Aricept if the patient experiences any further bradycardia and consider a trial of Namenda (memantine) for memory loss. The family were informed that Namenda and postmarketing reports has been reported to be associated with congestive heart failure in some patients as well as a 3% chance of syncope but is usually not associated with bradycardia. I also informed the family may consider increasing the primidone if no contraindications from patient's anticoagulation standpoint on Xarelto or consider a trial of Neurontin, Lamictal, or Keppra for essential tremor especially if cardiology determines that the propranolol should be further tapered and discontinued secondary to episodes of bradycardia. The patient stated that she has a follow-up with the parts salesman later in December 2023 to determine if the patient requires pacemaker or further medication treatment if any further indication of bradycardic episodes or tachycardic episodes are observed on the loop monitor. The patient underwent a noncontrast head CT on 11/02/2023 which was reported to be negative. Because of the loop recorder, head MRI was not performed. The patient underwent a carotid duplex study on 03/27/2023 which was reported to be negative. Patient is currently on the care of cardiology. During the patient initial clinic visit she was scheduled for labs for APOE genotype, vitamin D, B12, folate, methylmalonic acid, homocystine, FTA antibody, RPR and magnesium level. Vitamin D level was significantly decreased at 7.0 (normal 30-100). The patient's other labs were unrevealing. APOE genotype was normal with E3/E3 genotype. The patient's family was contacted regarding the significantly decreased vitamin D level and the patient was started on vitamin D3 50,000 international units p.o. weekly. The patient presented for reassessment accompanied by the family. According to the patient's family, propranolol was discontinued secondary to bradycardia and patient was started on losartan and hydralazine for blood pressure. According to the family, the patient's tremor became worse after the propranolol was discontinued. The family stated the patient was given an anxiety medication which the family thinks was Xanax. I reviewed the patient's medication list but there was no list of the medication. The patient's family stated that the patient was started on Xanax her chest pain resolved and her tremor improved. The family of the patient stated the patient was only on the medication for a month but the medication really helped with the patient's tremors. Since the patient denied any benefit from the Sinemet for the essential tremor recommended tapering and discontinuing the Sinemet to simplify the patient's medication regiment. On 03/06/2024 the patient was instructed to take Sinemet 10/100 mg tablets 1 p.o. daily for 1 week then discontinue Sinemet secondary to lack of benefit with regards to essential tremor. I agreed to write a prescription for Xanax 0.5 mg p.o. twice daily for essential tremor and increase as needed/tolerated on 03/06/2024. Potential side effects of Xanax (alprazolam) was discussed with the patient and the patient's family. The patient was reported to be doing fairly well until 03/10/2024. On the morning of 03/10/2024 the patient was reported to complain of some mild dizziness but otherwise was in her usual state of health. On the morning of 03/11/2024 around 5 AM the stated that he got up to go to the bathroom and accidentally bumped an object in the bedroom and startled the patient and woke her up. The patient's stated that after arousing his his appeared confused and complaining of severe objective vertigo and stated that everything was spinning. The patient initially tried to go to the bathroom but complained of severe dizziness while sitting on the side of her bed. The stated that when he attempted to assist the patient to stand up the patient fell and bumped the side of her head but did not experience any loss of consciousness. After several minutes the patient's stated he was able to assist the patient to the bathroom since the patient was still complaining of severe dizziness with everything spinning around. The patient then went back to bed. The stated that he checked on his around 9 AM on 03/11/2024. He stated that he could hear her breathing and she was sleeping. But when he aroused her at 9 AM she still reported severe dizziness and according to the patient's the patient appeared confused. The patient's stated the patient dizziness did not improve and therefore he was assisting his with putting on her pants and the patient was reported to fall to the floor and experienced near syncope with some decreased level consciousness with confusion as well as dry heaving with nausea. The patient remained on the floor until EMS arrived and the patient was brought to [facility] emergency department. According to the patient's family, the patient had decreased fluids and food intake on 03/10/2024 and no food or water intake on 03/11/2024 and patient denied any fluids or food intake at 5:30 PM on 03/11/2024. I recommended the patient be started on IV fluids for hydration as well as start her on her cardiac diet. Also recommended trying Antivert 25 mg p.o. 4 times a day for vertigo. Noncontrast head CT scan was obtained on 03/11/2024 and revealed no acute findings. CT of the cervical spine was also performed on 03/11/2024 and revealed no acute findings. CT angiogram of the head and neck performed on 01/09/2024 was unrevealing. In view of the patient's loop recorder head MRI could not be performed. In view of the patient's exacerbation of objective vertigo worse with turning her head or changing positions, the patient was admitted for further evaluation. I agreed with the hospitalist speaking with cardiology regarding whether or not the loop recorder can be removed in order to obtain head MRI with and without contrast with MRI of the internal auditory canals bilaterally. This evening on 03/11/2024 the patient also reported bilateral ear discomfort. I recommend patient be evaluated by ENT. On 03/12/2024 the patient reported feeling better. She continues to report some dizziness with changes in position but stated that no further dizziness or vertigo with eye movement or slight head movements. On 03/11/2024 patient was started on IV fluids and cardiac diet. On examination 03/12/2024 while patient was lying in bed I was unable to produce any vertigo with extraocular movement testing. Patient had head MRI with and without contrast with MRI of the internal auditory canals to assess for strokes in the posterior circulation as well as space- occupying lesions and auditory nerve issues. Patient underwent MRA of the [place] of [place] which was reported to be negative. MRI of the internal auditory canals were reported to be negative. Head MRI was not performed. Drug allergies: Lisinopril which resulted in a cough Current medications: Xarelto 20 mg p.o. daily for atrial fibrillation Xanax (alprazolam) 0.5 mg p.o. twice daily for essential tremor Vitamin D3 50,000 international units p.o. every week Sinemet 10 mg/100 mg tablets 1 p.o. twice daily for tremor ( Decrease Sinemet 10/100 mg tablets to 1 p.o. daily for 1 week then discontinue Sinemet secondary to lack of benefit with regards to essential tremor ordered on 03/06/2024) Primidone 50 mg p.o. nightly for essential tremor Aricept 10 mg p.o. nightly for memory loss Amiodarone 200 mg tablets 2 p.o. twice daily for irregular heart rhythm Isosorbide mononitrate ER 60 mg p.o. daily Claritin 10 mg p.o. daily as needed for allergy Flonase allergy relief 50 mcg per accusation 2 sprays intranasally daily as needed for allergy symptoms Vascepa 1 g p.o. daily Hydralazine 10 mg p.o. twice daily Lipitor 20 mg p.o. nightly Allopurinol 300 mg p.o. daily for gouty arthritis Albuterol multidose inhaler 90 mcg per accusation 2 puffs every 8 hours as needed Losartan 25 mg p.o. daily Past medical history: Atrial fibrillation treated with Xarelto Tacky-bradycardia syndrome Essential tremor for greater than 30 years Benign hypertension Hypertriglyceridemia Coronary atherosclerotic heart disease Exertional shortness of breath Gout Asthma Frequent episodes of pneumonia Cardiac loop recorder for 2 years Vitamin D deficiency, severe Past medications: Propranolol 10 mg p.o. 3 times daily for essential tremor (higher doses resulted in bradycardia) Methenamine Habits: None. Patient denied ever smoking or drinking. Family history: Remarkable for mother and brother with tremors Social history: The patient lives with her Review of Systems General: Reports: 10 or mor e systems reviewed and unremarkable except in HPI and below Vitals/I&O/Wt Last Vital Signs Temp 97.9 F 03/12/24 11:00 Pulse 61 03/12/24 11:00 Resp 17 03/12/24 11:00 BP 145/74 03/12/24 11:00 Pulse Ox 94 03/12/24 11:00 O2 Del Method Room Air 03/12/24 11:00 03/11/24 03/12/24 03/12/24 22:59 06:59 14:59 Intake Total 120 / 120 935 / 1055 356.25 / 356.25 Output Total 200 / 200 Balance 120 / 120 735 / 855 356.25 / 356.25 Weight last 48 hrs Weight 212 lb 11.2 oz Weight 205 lb Weight 205 lb Physical Exam 2 Narrative: The patient was alert and oriented to person place and situation. Head normocephalic. Head and neck revealed titubation. Patient also displayed postural tremor in her hands bilaterally. Pupils 4 mm round reactive to light and accommodation. Extraocular movements intact. There were no nystagmus. Motor testing 5/5 bilaterally. Deep tendon reflexes 2+ bilaterally except for trace at the Achilles bilaterally. Plantar responses flexor bilaterally. There was no clonus. Sensory examination was intact to touch. Gait was not tested secondary to complaints of severe vertigo. Throat clear. Lungs clear. Heart regular rhythm and rate. Extremities were negative for cyanosis. Data 03/12/24 04:46 03/12/24 04:46 A&P Assessment and plan (1) Objective vertigo: 1. Severe objective vertigo, improving 2. Subjective complaints of bilateral ear pain 3. Essential tremor for greater than 30 years 4. Atrial fibrillation treated with Xarelto 5. Tachybradycardia syndrome 6. Cardiac loop recorder x 2 years 7. Memory loss treated with Aricept (MMSE 23/30 on 12/18/2023) 8. Episodes of bradycardia, possibly exacerbated by propranolol and Aricept, improved after discontinuing propranolol by another physician 8. Asthma 10. Benign essential hypertension 11. Vitamin D deficiency, severe (patient started on vitamin D3 50,000 international units p.o. weekly for December 2023) Plan: 1. Recommend obtaining head MRI with and without contrast to assess for brainstem stroke or cerebellar stroke 2. Decrease Xanax 0.25 mg p.o. twice daily for essential tremor and consider further tapering discontinuation if patient's itching is considered to be related to the Xanax. 3. Potential side effects of Xanax were discussed with the patient and the patient's family was present during this follow-up clinic visit on 03/06/2024 4. Continue to taper and discontinue Sinemet 10/100 mg tablets to 1 p.o. daily for 1 week then discontinue Sinemet secondary to lack of benefit with regards to essential tremor 5. Continue vitamin D3 50,000 international units p.o. weekly 6. Multivitamin with 1 mg folate p.o. daily 7. Recommend cardiac telemetry monitoring during his hospitalization 8. Recommend ENT evaluation for vertigo and complaints of bilateral ear discomfort 9. Continue Antivert 25 mg p.o. 4 times a day for vertigo 10. Continue Zofran 4 mg IV every 4-6 hours as needed for nausea vomiting 11. Can discontinue IV fluids once patient is drinking adequate oral fluids 12. Continue cardiac diet 13. Continue fall precautions 14. Consider discontinuing Aricept and giving patient a trial of Namenda for memory loss if patient experiences any further episodes of bradycardia since Aricept, galantamine and Exelon can be associated with bradycardia secondary to boosting acetylcholine. Note: Since Namenda can potentially be associated with cardiac issues will use this medication with caution if it is needed. Note: Since the patient is on Xarelto, the patient is not a candidate for Leqembi or Kisnula for dementia secondary to increased risk of brain hemorrhage (2) Essential tremor: Attestations 2 Medical Necessity Statement*: The patient was evaluated by neurology for severe vertigo Coding Level of Care Code 60155 Diagnoses Objective vertigo R42 Essential tremor G25.0
--- NOTE | 2024-03-12 12:10 | P.DS_ITS ---
Discharge Providers Date of Admission: 03/11/24 15:46 Date of Discharge: March 12, 2024 Attending Provider at Admission: Isha Lopez MD Attending Provider at Discharge: Isha Lopez MD Primary Care Provider: CEDRIC Ayon Diagnoses at Discharge Discharge Diagnosis (1) Objective vertigo: Status: Acute (2) Essential tremor: Status: Acute Reason for Visit Reason for Visit: fall, head injury Hospital Course Hospital Course Please see H&P for further details. Patient was admitted for dizziness which she has been having on and off for the last few months. She has been following up with neurology outpatient. Sinemet dosages have been adjusted and weaned off and eventually she was placed on Xanax. She also has worn a loop recorder for the last 2 years secondary to bradycardic episodes. She also had a syncopal episode a few months ago. She is following up with cardiology for that. She presented with dizziness nausea. She was out of the window for any TNKase at this point as symptoms started 2 days prior to arrival. Posterior circulation stroke without a differential diagnosis. MRI was recommended at this time. Patient did have MRI done of internal auditory canals and MRI brain including MR a head. All vasculature is patent. There is no evidence of stroke at this time. IAC is also normal. We do have suspicion that patient might have otology issues therefore we will refer to ENT at time of discharge. As per recommendations from neurology we will place on meclizine at this time. Patient was also seen by neuro during hospitalization. Xanax has been reduced to 0.25 twice daily. Patient to follow-up with ENT for further management. She was given IV fluids and kept in supine position. On day of discharge symptoms had somewhat improved. She was able to walk with a walker to the bathroom and back. However did experience dizziness at some point. However she is no longer dizzy like she was yesterday. This with neurology in detail at time of discharge. Of note: Loop recorder is compatible with MRI. Physical Exam Narrative: General: Alert oriented x3, patient seen laying in bed appearing comfortable at this time. Does have a head tremor. Family present at bedside. HEENT: Normocephalic, atraumatic, EOMI, breathing room air. Cardio: Regular rate rhythm, normal S1-S2, Respiratory: Good bilateral air entry, no wheezes no rhonchi appreciated GI: Abdomen soft, nontender, nondistended, bowel sounds + Behavior: Appropriate and cooperative Extremities: Pulses 2+, no edema, no cyanosis Neuro: Nonfocal. Does have postural tremor. Discharge Data Studies Completed and Pending Completed Studies During Hospitalization Category Date Time Status CT cervical spin wo con* [id number] Stat Cat Scan 03/11/24 10:[address] head wo con* [id number] Stat Cat Scan 03/11/24 10:16 Completed MR iac's wo/w con* [id number] Routine MRI 03/12/24 08:25 Completed MRA head [MR angio head wo con [id number]] Routine MRI 03/12/24 08:25 Completed Pending at discharge Category Date Time Status US echo complete [CV. echo complete* [id number]] Routine Ultrasound 03/11/24 16:43 Taken Radiology Impressions Cervical Spine CT 03/11/24 10:16 IMPRESSION: No evidence of acute fracture or dislocation. Head CT 03/11/24 10:16 IMPRESSION: 1. No evidence of intracranial hemorrhage or mass effect. 2. No acute intracranial findings. Head MRA 03/12/24 08:25 IMPRESSION: Normal MRA [place] of [place]. Internal Auditory Canal MRI 03/12/24 08:25 IMPRESSION: 1. No acute intracranial hemorrhage, edema or infarct. 2. Mild volume loss and atrophy. 3. Moderate fluid in the LEFT mastoid air cells. 4. No mass or signal abnormality along the internal auditory canals or cerebellopontine angles. 5. Mild bilateral hippocampal atrophy. Laboratory Results WBC 5.97 10^3/uL (3.29-11.43) 03/12/24 04:46 RBC 4.32 10^6/uL (3.85-5.65) 03/12/24 04:46 Hgb 13.00 g/dL (11.27-16.99) 03/12/24 04:46 Hct 41.8 % (36-47) 03/12/24 04:46 MCV 96.8 fl (85-98) 03/12/24 04:46 MCH 30.1 pg (27-33) 03/12/24 04:46 MCHC 31.1 g/dL (30-55) 03/12/24 04:46 RDW 13.9 % (12.1-15.1) 03/12/24 04:46 Plt Count 184 10^3/cmm (157-399) 03/12/24 04:46 MPV 11.6 fL (7.4-10.4) H 03/12/24 04:46 Neut % (Auto) 51.0 % 03/12/24 04:46 Lymph % (Auto) 32.3 % 03/12/24 04:46 [place] % (Auto) 12.6 % 03/12/24 04:46 Eos % (Auto) 2.7 % 03/12/24 04:46 Baso % (Auto) 1.2 % 03/12/24 04:46 Neut # (Auto) 3.05 10^3/uL (1.8-7.7) 03/12/24 04:46 Lymph # (Auto) 1.9 10^3/uL (0.8-4.8) 03/12/24 04:46 [place] # (Auto) 0.8 10^3/uL (0.2-0.9) 03/12/24 04:46 Eos # (Auto) 0.2 10^3/uL (0.0-0.8) 03/12/24 04:46 Baso # (Auto) 0.1 10^3/uL (0.0-0.1) 03/12/24 04:46 Nucleated RBC % (auto) 0 % 03/12/24 04:46 Nucleated RBCs # 0.0 /100WBC 03/12/24 04:46 Sodium 142 mmol/L (136-145) 03/12/24 04:46 Potassium 3.9 mmol/L (3.5-5.1) 03/12/24 04:46 Chloride 103 mmol/L (98-107) 03/12/24 04:46 Carbon Dioxide 27 mmol/L (22-29) 03/12/24 04:46 Anion Gap 15.9 (5-19) 03/12/24 04:46 BUN 15 mg/dL (8-23) 03/12/24 04:46 Creatinine 1.2 mg/dL (0.5-0.9) H 03/12/24 04:46 GFR Calculation Not Reportable 03/12/24 04:46 Glucose 125 mg/dL (65-115) H 03/12/24 04:46 Estimat Average Glucose 131 03/11/24 12:27 Hemoglobin A1c 6.2 % (4.0-6.0) H 03/11/24 12:27 Calculated Osmolality 296 mOsm/kg (285-295) H 03/12/24 04:46 Calcium 9.1 mg/dL (8.5-10.5) 03/12/24 04:46 Magnesium 1.6 mg/dL (1.7-2.3) L 03/12/24 04:46 Total Bilirubin 0.4 mg/dL (0.15-1.2) 03/11/24 12:27 AST 28 U/L (0-32) 03/11/24 12:27 ALT 30 U/L (0-33) 03/11/24 12:27 Alkaline Phosphatase 54 U/L (35-105) 03/11/24 12:27 Total Protein 7.6 g/dL (6.6-8.7) 03/11/24 12:27 Albumin 4.0 g/dL (3.5-5.2) 03/11/24 12:27 Globulin 3.6 g/dL (1.3-4.6) 03/11/24 12:27 TSH 0.74 uIU/mL (0.27-4.20) 03/11/24 12:27 Vitals Last Vital Signs Temp 97.9 F 03/12/24 11:00 Pulse 61 03/12/24 11:00 Resp 17 03/12/24 11:00 BP 145/74 03/12/24 11:00 Pulse Ox 94 03/12/24 11:00 O2 Del Method Room Air 03/12/24 11:00 Discharge Plan Discharge Patient Disposition: Home Condition: Stable Prescriptions: New meclizine 25 mg Tablet 25 mg PO TID PRN (Reason: Dizziness) Qty: 10 0RF Continued fluticasone propionate [Flonase Allergy Relief] 50 mcg/actuation spray,suspension 2 spray intranasal DAILY PRN (Reason: Allergy Symptoms) Rx Instructions: administer into each nostril Xarelto 20 mg tablet 20 mg PO DAILY Qty: 100 3RF albuterol sulfate 90 mcg/actuation HFA aerosol inhaler 2 inh inhalation Q8H PRN (Reason: shortness of breath or wheezing) Qty: 8.5 1RF PNV 119-iron fum-folic acid 29 mg iron- 1 mg tablet 1 tab PO DAILY Qty: 30 5RF Vascepa 1 gram capsule 1 g PO DAILY Qty: 90 3RF cholecalciferol (vitamin D3) 1,250 mcg (50,000 unit) capsule 50,000 unit PO .COMPLEX Qty: 14 5RF Rx Instructions: 50,000 units orally weekly; atorvastatin 20 mg tablet 20 mg PO BEDTIME isosorbide mononitrate 60 mg tablet extended release 24 hr 60 mg PO QAM allopurinol 300 mg tablet 300 mg PO DAILY PRN (Reason: gout) loratadine 10 mg tablet 10 mg PO DAILY PRN (Reason: Allergy Symptoms) losartan 50 mg tablet 25 mg PO DAILY Qty: 60 2RF hydralazine 10 mg tablet 10 mg PO BID Qty: 60 2RF ketoconazole 2 % cream See Rx Instructions .ROUTE .COMPLEX Rx Instructions: APPLY TWICE DAILY TO RED/DRY AREAS ON EARS NEEDED. amiodarone [Pacerone] 200 mg Tablet 200 mg PO DAILY 30 Days Qty: 30 1RF ketoconazole 2 % shampoo See Rx Instructions .ROUTE .COMPLEX PRN (Reason: SCALP IRRITATION) Rx Instructions: APPLY TOPICALLY TO THE AFFECTED AREA(S), LATHER, LEAVE FOR 5 MINUTES & THEN RINSE OFF ONCE DAILY. donepezil 10 mg tablet 10 mg PO DAILY triamcinolone acetonide 0.1 % cream 1 applic TOPICAL BID Changed alprazolam 0.5 mg tablet 0.25 mg PO BID PRN (Reason: stress) Qty: 10 0RF Discontinued carbidopa-levodopa 10-100 mg tablet 1 tab PO ONCE Qty: 7 0RF Rx Instructions: 1 a day for a week then end prescription. primidone 50 mg tablet 50 mg PO BEDTIME Discharge Orders: Discharge Order (Routine); Ordered 03/12/24 Ordered By: Isha Lopez Referrals: Jose Angel Kelsey MD [Physician] - 2 weeks (We have notified your physician's clinic of the need for a follow-up appointment to be scheduled. If you have not heard from them within the next 2 business days, please call them directly. ) Bonnie Fleming FNP [Primary Care Provider] - 03/18/24 10:30 am Giuseppe Mcgovern MD [Physician] - 03/18/24 8:45 am (Temporary location 3rd floor [facility]) Discharge Diet: Cardiac Discharge Activity: Use walker/crutches as instructed Patient Instructions: Meclizine (By mouth), Vertigo (GEN), Opioid Safety Discharge Attestations Time Spent in Discharge Care*: greater than 30 min Quality Metrics Clinical Quality Measures [ No reported AMI, CVA or VTE this stay] Coding Level of Care Code Acute Code for Chg Fwd Diagnoses Objective vertigo R42 Essential tremor G25.0
--- NOTE | 2024-03-13 10:08 | PC.NURSE ---
recieved maverick that appointment is scheduled for July 23 [address] to Dr Lopez and she informed that Dr Kelsey had stated he wanted to see patient in clinic within 2 weeks. called the Neurology office and they informed that they would see what they could do and would let the patient know.
== END 2024-03-12 15:11 | disposition home or self-care (01) ==
LOC: ER 14:09 → MEDSURG 15:46
PROVIDERS: Admitting Provider Internal Medicine; Emergency Provider Family Medicine; PCP Nurse Practitioner Family; Visit Provider Internal Medicine
DX: R42 Dizziness and giddiness (principal); G25.0 Essential tremor; I48.91 Unspecified atrial fibrillation; Z79.01 Long term (current) use of anticoagulants; I10 Essential (primary) hypertension; I25.10 Atherosclerotic heart disease of native coronary artery without angina pectoris; J45.909 Unspecified asthma, uncomplicated; E55.9 Vitamin D deficiency, unspecified; H92.03 Otalgia, bilateral; R00.0 Tachycardia, unspecified; R00.1 Bradycardia, unspecified; Z23 Encounter for immunization
CPT/HCPCS: 36415; 70450; 70544; 70553; 72125; 80048; 80053; 83036; 83735; 84443; 85025; 90471; 90686; 93306; 96365; 96375; 99285; G0378; J1200; J2060; J3475; J7030; J8597

== ENCOUNTER 2024-04-10 09:11 | Outpatient (RCR) | payer MEDICARE, SELFPAY | END 2024-05-07 23:59 | disposition home or self-care (01) | LOC: SPT 09:11 | PROVIDERS: Visit Provider Otolaryngology | DX: H81.11 Benign paroxysmal vertigo, right ear (principal); R42 Dizziness and giddiness | CPT/HCPCS: 95992; 97161 ==

== ENCOUNTER 2024-04-16 13:17 | Emergency (ER) | payer MEDICARE, SELFPAY ==
[2024-04-16 13:33] VITALS: PULSE 68; RESP 18; TEMP 36.5; O2SAT 95; BMI 36.0
--- NOTE | 2024-04-16 14:17 | ECG_ITS ---
[facility] Test Date: 2024-04-16 Pat Name: Kadi Hernandez Department: Room: Gender: Female Manager Of Security: : 1945 Requested By: Luann Zepeda Order Number: [id number] Al MD: Mandie Montano M.D. Measurements Intervals Echo Rate: 61 P: 0 MA: 0 QRS: 29 QRSD: 94 T: 22 QT: 344 QTc: 349 Interpretive Statements normal sinus rhythm LOW QRS VOLTAGE IN PRECORDIAL LEADS [QRS DEFLECTION < 1.0 mV IN CHEST LEADS] NONSPECIFIC T-WAVE ABNORMALITY ABNORMAL RHYTHM ECG Compared to ECG 01/11/2024 13:02:59 Supraventricular rhythm now present T-wave abnormality now present Sinus rhythm no longer present Baseline artifacts, need to repeat Electronically Signed On 04-16-2024 19:13:39 FRAUD INVESTIGATOR by Mandie Montano M.D. [id number]
--- NOTE | 2024-04-16 14:25 | ED_ITS ---
HPI - Dizziness 2 General: Chief Complaint: Dizziness Stated Complaint: high bp but standing bp dropped Time Seen by Provider: 04/16/24 13:47 Source: patient Mode of arrival: ambulatory Limitations: no limitations History of Present Illness: HPI Narrative: 79-year-old female states she is at [facility] therapy today and her blood pressures running in the 190s states she has had a mild headache she rates a 5 out of 10 said she gets lightheaded at times when she stands up that is been going on for some time she been going to physical therapy for vertigo. She denies any chest pain has no other symptoms does have a history of hypertension Associated symptoms: Reports headache(s); Denies chest pain, chills, nausea or vomiting Related Data Home Medications Medication Instructions Recorded Confirmed fluticasone propionate 50 2 spray intranasal DAILY PRN 09/15/21 03/11/24 mcg/actuation nasal Allergy Symptoms spray,suspension (Flonase Allergy Relief) allopurinol 300 mg tablet 300 mg PO DAILY PRN gout 07/29/23 03/11/24 atorvastatin 20 mg tablet 20 mg PO BEDTIME 07/29/23 03/11/24 isosorbide mononitrate 60 mg 60 mg PO QAM 07/29/23 03/11/24 tablet,extended release 24 hr loratadine 10 mg tablet 10 mg PO DAILY PRN Allergy Symptoms 07/29/23 03/11/24 donepezil 10 mg tablet 10 mg PO DAILY 11/02/23 03/11/24 ketoconazole 2 % shampoo See Rx Instructions .Route 11/02/23 03/11/24 .COMPLEX PRN SCALP IRRITATION triamcinolone acetonide 0.1 % 1 applic topical BID 11/02/23 03/11/24 topical cream ketoconazole 2 % topical cream See Rx Instructions .Route .COMPLEX 01/11/24 03/11/24 Previous Rx's Medication Instructions Recorded rivaroxaban 20 mg tablet (Xarelto) 20 mg PO DAILY #100 tabs 04/24/23 icosapent ethyl 1 gram capsule 1 g PO DAILY #90 caps 08/07/23 (Vascepa) albuterol sulfate 90 mcg/actuation 2 inh inhalation Q8H PRN shortness 12/12/23 aerosol inhaler of breath or wheezing #8.5 grams cholecalciferol (vitamin D3) 1,250 50,000 unit PO .COMPLEX #14 caps 12/26/23 mcg (50,000 unit) capsule hydralazine 10 mg tablet 10 mg PO BID #60 tabs 01/10/24 losartan 50 mg tablet 25 mg (1/2 x 50 mg) PO DAILY #60 01/10/24 tabs amiodarone 200 mg tablet (Pacerone) 200 mg PO DAILY 30 days #30 tabs 01/13/24 vitamins no.119-iron 1 tab PO DAILY #30 tabs 03/06/24 fumarate 29 mg-folic acid 1 mg tablet alprazolam 0.5 mg tablet 0.25 mg (1/2 x 0.5 mg) PO BID PRN 03/12/24 stress #10 tabs meclizine 25 mg tablet 25 mg PO TID PRN Dizziness #10 tabs 03/12/24 Allergies Allergy/AdvReac Type Severity Reaction Status Date / Time lisinopril Allergy coughing Verified 04/16/24 13:31 Review of Systems 2 Const: Denies: fever(s), chills, body aches or change in appetite Eyes: Denies: blurry vision or eye discomfort ENMT: Denies: throat pain or dental pain Card: Denies: chest pain Resp: Denies: dyspnea GI: Denies: abdominal pain, nausea, vomiting or diarrhea Musc: Denies: neck pain or back pain Skin/Breast: Denies: rash Neuro: Reports: headache(s) PFSH ED 2 PFSH: Medical History Reactive airway disease Memory loss UTI (urinary tract infection) Benign positional vertigo Benign hypertension Atrial fibrillation with rapid ventricular response Hypertriglyceridemia Exertional shortness of breath Hypertensive urgency Hypertension Generalized weakness Chest pain UTI (urinary tract infection) Bradycardia CAD (coronary artery disease) Dizziness Atrial fibrillation Essential tremor Generalized weakness Lactic acidosis Acute metabolic encephalopathy Sepsis Atrial fibrillation Urinary tract infection Elevated blood pressure reading Palpitation HTN (hypertension) Gout Dyslipidemia Melanoma Surgical History Hx of cataract extraction History of cholecystectomy Status post laparoscopic cholecystectomy (03/30/20) History of removal of ovarian cyst History of carpal tunnel release S/P complete hysterectomy H/O esophagogastroduodenoscopy 1977 H/O colonoscopy 2016 Family History Mother Melanoma Diabetes Stroke Father CAD (coronary artery disease) unknown age of onset, [place] at 62 Cancer Family/Other Cancer Grandmother Cancer Brother Diabetes Denies family history of Clotting disorder Dementia Chronic kidney disease (CKD) Suicide Anesthesia complication Bleeding disorder Lung disease Social History Smoking and tobacco/nicotine status: never used tobacco/nicotine Alcohol intake: never Substance/Drug Use: never Household members: spouse Marital status: Current occupational status: retired Physical Exam 2 Const: COMMON NORMALS: no acute distress, patient oriented x3 and healthy appearing HENMT: COMMON NORMALS: normocephalic and atraumatic HEAD & SCALP: n ormocephalic and atraumatic Eye: COMMON NORMALS: EOMs intact bilaterally and conjunctivae normal C ONJUNCTIVA: Yes conjunctivae normal Neck/C-Spine: COMMON NORMALS: full ROM and supple Chest: COMMONS NORMALS: normal inspection of the chest Resp: COMMON NORMALS: normal respiratory effort Cardio: COMMON NORMALS: regular rate, regular rhythm and No murmurs present (Cardio) RATE: regular rate RHYTHM: regular rhythm Extremity: COMMON NORMALS: normal to inspection and full ROM Neuro: COMMON NORMALS: patient oriented x3, moves all extremities and no focal motor deficits Psych: COMMON NORMALS: mental status grossly normal, Normal thought process present and cooperative THOUGHT PROCESS: Normal thought process present Skin: COMMON NORMALS: no rashes or lesions noted and no wounds GENERAL SKIN EXAM: no rashes or lesions noted Course 2 Vital Signs: Vital signs: Vital Signs Temperature 97.7 F 04/16/24 13:33 Pulse Rate 67 04/16/24 15:19 Respiratory Rate 16 04/16/24 14:33 Blood Pressure 158/92 04/16/24 15:19 Pulse Oximetry 95 04/16/24 15:19 Oxygen Delivery Me thod Room Air 04/16/24 15:19 MDM - Dizziness Medical Decision Making Patient presents with hypertension her blood pressure is improved states he feels much improved headache is resolved she has no signs of a stroke or intracranial hemorrhage she is to monitor her blood pressure at home continue her meds follow-up with PCP return if worsening she understands agrees to plan. Medical Records I reviewed the patient's medical records. Lab Data I reviewed the patient's lab results. 04/16/24 15:00 04/16/24 15:00 Laboratory Results WBC 7.42 10^3/uL (3.29-11.43) 04/16/24 15:00 RBC 4.43 10^6/uL (3.85-5.65) 04/16/24 15:00 Hgb 13.30 g/dL (11.27-16.99) 04/16/24 15:00 Hct 43.1 % (36-47) 04/16/24 15:00 MCV 97.3 fl (85-98) 04/16/24 15:00 MCH 30.0 pg (27-33) 04/16/24 15:00 MCHC 30.9 g/dL (30-55) 04/16/24 15:00 RDW 15.0 % (12.1-15.1) 04/16/24 15:00 Plt Count 199 10^3/cmm (157-399) 04/16/24 15:00 MPV 11.5 fL (7.4-10.4) H 04/16/24 15:00 Neut % (Auto) 60.6 % 04/16/24 15:00 Lymph % (Auto) 26.4 % 04/16/24 15:00 [place] % (Auto) 9.3 % 04/16/24 15:00 Eos % (Auto) 2.3 % 04/16/24 15:00 Baso % (Auto) 1.1 % 04/16/24 15:00 Neut # (Auto) 4.50 10^3/uL (1.8-7.7) 04/16/24 15:00 Lymph # (Auto) 2.0 10^3/uL (0.8-4.8) 04/16/24 15:00 [place] # (Auto) 0.7 10^3/uL (0.2-0.9) 04/16/24 15:00 Eos # (Auto) 0.2 10^3/uL (0.0-0.8) 04/16/24 15:00 Baso # (Auto) 0.1 10^3/uL (0.0-0.1) 04/16/24 15:00 Nucleated RBC % (auto) 0 % 04/16/24 15:00 Nucleated RBCs # 0.0 /100WBC 04/16/24 15:00 Sodium 141 mmol/L (136-145) 04/16/24 15:00 Potassium 4.6 mmol/L (3.5-5.1) 04/16/24 15:00 Chloride 104 mmol/L (98-107) 04/16/24 15:00 Carbon Dioxide 21 mmol/L (22-29) L 04/16/24 15:00 Anion Gap 20.6 (5-19) H 04/16/24 15:00 BUN 16 mg/dL (8-23) 04/16/24 15:00 Creatinine 1.1 mg/dL (0.5-0.9) H 04/16/24 15:00 GFR Calculation Not Reportable 04/16/24 15:00 Glucose 116 mg/dL (65-115) H 04/16/24 15:00 Calculated Osmolality 294 mOsm/kg (285-295) 04/16/24 15:00 Calcium 10.1 mg/dL (8.5-10.5) 04/16/24 15:00 Total Bilirubin 0.5 mg/dL (0.15-1.2) 04/16/24 15:00 AST 90 U/L (0-32) H 04/16/24 15:00 ALT 56 U/L (0-33) H 04/16/24 15:00 Alkaline Phosphatase 48 U/L (35-105) 04/16/24 15:00 Total Protein 7.8 g/dL (6.6-8.7) 04/16/24 15:00 Albumin 4.1 g/dL (3.5-5.2) 04/16/24 15:00 Globulin 3.7 g/dL (1.3-4.6) 04/16/24 15:00 No radiology studies performed this visit Discharge Plan Discharge Patient Disposition: Home Clinical Impression: Hypertension Condition: Stable Prescriptions: No Action fluticasone propionate [Flonase Allergy Relief] 50 mcg/actuation spray,suspension 2 spray intranasal DAILY PRN (Reason: Allergy Symptoms) Rx Instructions: administer into each nostril Xarelto 20 mg tablet 20 mg PO DAILY Qty: 100 3RF albuterol sulfate 90 mcg/actuation HFA aerosol inhaler 2 inh inhalation Q8H PRN (Reason: shortness of breath or wheezing) Qty: 8.5 1RF PNV 119-iron fum-folic acid 29 mg iron- 1 mg tablet 1 tab PO DAILY Qty: 30 5RF Vascepa 1 gram capsule 1 g PO DAILY Qty: 90 3RF cholecalciferol (vitamin D3) 1,250 mcg (50,000 unit) capsule 50,000 unit PO .COMPLEX Qty: 14 5RF Rx Instructions: 50,000 units orally weekly; atorvastatin 20 mg tablet 20 mg PO BEDTIME isosorbide mononitrate 60 mg tablet extended release 24 hr 60 mg PO QAM allopurinol 300 mg tablet 300 mg PO DAILY PRN (Reason: gout) loratadine 10 mg tablet 10 mg PO DAILY PRN (Reason: Allergy Symptoms) losartan 50 mg tablet 25 mg PO DAILY Qty: 60 2RF hydralazine 10 mg tablet 10 mg PO BID Qty: 60 2RF ketoconazole 2 % cream See Rx Instructions .ROUTE .COMPLEX Rx Instructions: APPLY TWICE DAILY TO RED/DRY AREAS ON EARS NEEDED. amiodarone [Pacerone] 200 mg Tablet 200 mg PO DAILY 30 Days Qty: 30 1RF meclizine 25 mg Tablet 25 mg PO TID PRN (Reason: Dizziness) Qty: 10 0RF alprazolam 0.5 mg tablet 0.25 mg PO BID PRN (Reason: stress) Qty: 10 0RF ketoconazole 2 % shampoo See Rx Instructions .ROUTE .COMPLEX PRN (Reason: SCALP IRRITATION) Rx Instructions: APPLY TOPICALLY TO THE AFFECTED AREA(S), LATHER, LEAVE FOR 5 MINUTES & THEN RINSE OFF ONCE DAILY. donepezil 10 mg tablet 10 mg PO DAILY triamcinolone acetonide 0.1 % cream 1 applic TOPICAL BID Discharge Orders: Discharge ED (Routine); Ordered 04/16/24 Ordered By: Luann Zepeda Discharge Diet: Advance as tolerated Discharge Activity: Resume usual activity Patient Instructions: Hypertension (ED) Coding Level of Care Code ED Facilities Painter for Hakeem Sebastian
[2024-04-16 14:29] VITALS: BP 187/87; O2SAT 93
[2024-04-16 14:30] VITALS: PULSE 63; O2SAT 92
[2024-04-16 14:33] VITALS: BP 176/95; PULSE 62; RESP 16; O2SAT 95
[2024-04-16] MEDS: hyDRALAzine 20 mg/mL INJ 1 mL 10 MG IVP (14:59)
[2024-04-16 15:08] LABS: Basophils # 0.1 10^3/uL (0.0-0.1); Basophils % 1.1 %; Eosinophils # 0.2 10^3/uL (0.0-0.8); Eosinophils % 2.3 %; Hematocrit 43.1 % (36-47); Lymphocytes % 26.4 %; Mean Corpuscular HGB Conc 30.9 g/dL (30-55); Mean Corpuscular Volume 97.3 fl (85-98); Mean Platelet Volume 11.5 fL (7.4-10.4); Monocytes # 0.7 10^3/uL (0.2-0.9); Monocytes % 9.3 %; Neutrophils % 60.6 %; Nucleated Red Blood Cells % 0 %; Platelet Count 199 10^3/cmm (157-399); Red Blood Count 4.43 10^6/uL (3.85-5.65); White Blood Count 7.42 10^3/uL (3.29-11.43)
[2024-04-16 15:19] VITALS: BP 158/92; PULSE 67; O2SAT 95
[2024-04-16 15:27] LABS: Alanine Aminotransferase 56 U/L (0-33); Albumin Level 4.1 g/dL (3.5-5.2); Alkaline Phosphatase 48 U/L (35-105); Blood Urea Nitrogen 16 mg/dL (8-23); Calcium 10.1 mg/dL (8.5-10.5); Carbon Dioxide 21 mmol/L (22-29); Chloride 104 mmol/L (98-107); Creatinine Clr Calc Pharmacy 43.0795; Globulin 3.7 g/dL (1.3-4.6); Glucose 116 mg/dL (65-115); Osmolality Calculated 294 mOsm/kg (285-295); Sodium 141 mmol/L (136-145); Total Bilirubin 0.5 mg/dL (0.15-1.2); Total Protein 7.8 g/dL (6.6-8.7)
[2024-04-16 15:29] LABS: Anion Gap 20.6 (5-19); Aspartate Amino Transferase 90 U/L (0-32); Potassium 4.6 mmol/L (3.5-5.1)
[2024-04-16 15:48] VITALS: BP 161/84; PULSE 65; O2SAT 94
== END 2024-04-16 15:49 | disposition home or self-care (01) ==
PROVIDERS: Emergency Provider Emergency Medicine
DX: I10 Essential (primary) hypertension (principal); I25.10 Atherosclerotic heart disease of native coronary artery without angina pectoris; E78.5 Hyperlipidemia, unspecified
CPT/HCPCS: 80053; 85025; 93005; 96374; 99284; J0360

== ENCOUNTER 2024-04-19 20:44 | Emergency (ER) | payer MEDICARE, SELFPAY ==
[2024-04-19 20:45] VITALS: BP 191/81; PULSE 76; RESP 17; TEMP 36.6; O2SAT 94; BMI 39.4
--- NOTE | 2024-04-19 20:55 | CTR_ITS ---
PROCEDURE INFORMATION: Exam: CT Head Without Contrast Exam date and time: 04/19/2024 9:08 PM Age: 79 years old Clinical indication: Pain; Other: Tremors/hypertension; Headache; Patient HX: HUIZAR with hypertension and involuntary head tremors. History of vertigo. TECHNIQUE: Imaging protocol: Computed tomography of the head without contrast. Radiation optimization: All CT scans at this facility use at least one of these dose optimization techniques: automated exposure control; mA and/or kV adjustment per patient size (includes targeted exams where dose is matched to clinical indication); or iterative reconstruction. COMPARISON: MR angio head wo con [id number] 03/12/2024 9:37 AM RADIATION DOSE METRICS: Total DLP (mGy-cm): 2064.2 FINDINGS: Brain: There is no CT evidence for acute ischemia, mass or hemorrhage. No extra-axial fluid collection, midline shift or hydrocephalus. Generalized sulcal widening and ventricular enlargement is due to white matter volume loss. Cerebral ventricles: See Brain finding. Paranasal sinuses: Visualized sinuses are unremarkable. No fluid levels. Mastoid air cells: Visualized mastoid air cells are well aerated. Bones: Unremarkable. No acute fracture. Soft tissues: Unremarkable. CT/CT head wo con* [id number] IMPRESSION: 1. No acute intracranial findings. 2. Age-related changes
--- NOTE | 2024-04-19 21:01 | ED_ITS ---
HPI - General Adult 2 General: Chief complaint: General Medical Stated complaint: high bp and headache Time Seen by Provider: 04/19/24 20:54 History of Present Illness: Patient presents to the ER with complaints of headache all day long. Her blood pressure was elevated. Patient did take all of her blood pressure medicine. The headache is more neck pain and tension with headache starts in the back of her head radiates around the front. Related Data Home Medications Medication Instructions Recorded Confirmed fluticasone propionate 50 2 spray intranasal DAILY PRN 09/15/21 03/11/24 mcg/actuation nasal Allergy Symptoms spray,suspension (Flonase Allergy Relief) allopurinol 300 mg tablet 300 mg PO DAILY PRN gout 07/29/23 03/11/24 atorvastatin 20 mg tablet 20 mg PO BEDTIME 07/29/23 03/11/24 isosorbide mononitrate 60 mg 60 mg PO QAM 07/29/23 03/11/24 tablet,extended release 24 hr loratadine 10 mg tablet 10 mg PO DAILY PRN Allergy Symptoms 07/29/23 03/11/24 donepezil 10 mg tablet 10 mg PO DAILY 11/02/23 03/11/24 ketoconazole 2 % shampoo See Rx Instructions .Route 11/02/23 03/11/24 .COMPLEX PRN SCALP IRRITATION triamcinolone acetonide 0.1 % 1 applic topical BID 11/02/23 03/11/24 topical cream ketoconazole 2 % topical cream See Rx Instructions .Route .COMPLEX 01/11/24 03/11/24 Previous Rx's Medication Instructions Recorded rivaroxaban 20 mg tablet (Xarelto) 20 mg PO DAILY #100 tabs 04/24/23 icosapent ethyl 1 gram capsule 1 g PO DAILY #90 caps 08/07/23 (Vascepa) albuterol sulfate 90 mcg/actuation 2 inh inhalation Q8H PRN shortness 12/12/23 aerosol inhaler of breath or wheezing #8.5 grams cholecalciferol (vitamin D3) 1,250 50,000 unit PO .COMPLEX #14 caps 12/26/23 mcg (50,000 unit) capsule hydralazine 10 mg tablet 10 mg PO BID #60 tabs 01/10/24 losartan 50 mg tablet 25 mg (1/2 x 50 mg) PO DAILY #60 01/10/24 tabs amiodarone 200 mg tablet (Pacerone) 200 mg PO DAILY 30 days #30 tabs 01/13/24 vitamins no.119-iron 1 tab PO DAILY #30 tabs 03/06/24 fumarate 29 mg-folic acid 1 mg tablet alprazolam 0.5 mg tablet 0.25 mg (1/2 x 0.5 mg) PO BID PRN 03/12/24 stress #10 tabs meclizine 25 mg tablet 25 mg PO TID PRN Dizziness #10 tabs 03/12/24 Allergies Allergy/AdvReac Type Severity Reaction Status Date / Time lisinopril Allergy coughing Verified 04/19/24 20:53 Review of Systems 2 General: Reports: 10 or more systems reviewed and unremarkable except in HPI and below PFSH ED 2 PFSH: Medical History Reactive airway disease Memory loss UTI (urinary tract infection) Benign positional vertigo Benign hypertension Atrial fibrillation with rapid ventricular response Hypertriglyceridemia Exertional shortness of breath Hypertensive urgency Hypertension Generalized weakness Chest pain UTI (urinary tract infection) Bradycardia CAD (coronary artery disease) Dizziness Atrial fibrillation Essential tremor Generalized weakness Lactic acidosis Acute metabolic encephalopathy Sepsis Atrial fibrillation Urinary tract infection Elevated blood pressure reading Palpitation HTN (hypertension) Gout Dyslipidemia Melanoma Surgical History Hx of cataract extraction History of cholecystectomy Status post laparoscopic cholecystectomy (03/30/20) History of removal of ovarian cyst History of carpal tunnel release S/P complete hysterectomy H/O esophagogastroduodenoscopy 1977 H/O colonoscopy 2016 Family History Mother Melanoma Diabetes Stroke Father CAD (coronary artery disease) unknown age of onset, [place] at 62 Cancer Family/Other Cancer Grandmother Cancer Brother Diabetes Denies family history of Clotting disorder Dementia Chronic kidney disease (CKD) Suicide Anesthesia complication Bleeding disorder Lung disease Social History Smoking and tobacco/nicotine status: never used tobacco/nicotine Alcohol intake: never Substance/Drug Use: never Household members: spouse Marital status: Current occupational status: retired Physical Exam 2 Const: COMMON NORMALS: no acute distress, average body habitus, patient oriented x3, no limitations, healthy appearing, alert and well nourished HENMT: COMMON NORMALS: normocephalic, atraumatic, hearing grossly normal bilaterally, external ears normal and moist oral mucous membranes HEAD & SCALP: normocephalic and atraumatic EXTERNAL EAR: Yes external ears normal Neck/C-Spine: COMMON NORMALS: no JVD OTHER: Tightness and tension to the posterior neck paraspinal musculature Chest: COMMONS NORMALS: normal inspection of the chest and normal palpation of entire chest wall Resp: COMMON NORMALS: normal respiratory effort, No retractions, No use of accessory muscles and clear to auscultation bilaterally AUSCULTATION: clear to auscultation bilaterally Cardio: COMMON NORMALS: no JVD, regular rate, regular rhythm, S1 normal heart sound present, S2 normal heart sound present, No gallops present (Cardio), No clicks present (Cardio), No murmurs present (Cardio) and No rub (Cardio) R ATE: regular rate RHYTHM: regular rhythm HEART SOUNDS: S1 normal heart sound present and S2 normal heart sound present GI: COMMON NORMALS: Normal to inspection, nondistended, normoactive bowel sounds present, Soft to palpation, non-tender, No hepatosplenomegaly present and no masses PALPATION: Yes Soft to palpation and Yes No hepatosplenomegaly present Neuro: COMMON NORMALS: patient oriented x3 SENSORIUM/ORIENTATION: Yes alert Course 2 Vital Signs: Vital signs: Vital Signs Temperature 97.9 F 04/19/24 20:45 Pulse Rate 61 04/19/24 23:41 Respiratory Rate 20 H 04/19/24 23:41 Blood Pressure 155/70 04/19/24 23:41 Pulse Oximetry 95 04/19/24 23:41 Oxygen Delivery Me thod Room Air 04/19/24 22:25 MDM - General Adult Medical Decision Making Patient lab work and head CT that was essentially unremarkable. Patient blood pressure started off hide within improved on its own before medication could be given. Patient received Toradol IM which did not seem to help her headache once he was deduced it was more neck muscular pain. Patient was given Norflex IM and then discharged. Lab Data 04/19/24 21:32 04/19/24 21:[address] 04/19/24 20:55 IMPRESSION: 1. No acute intracranial findings. 2. Age-related changes Laboratory Results WBC 6.96 10^3/uL (3.29-11.43) 04/19/24 21: RBC 4.25 10^6/uL (3.85-5.65) 04/19/24 21: Hgb 12.80 g/dL (11.27-16.99) 04/19/24 21: Hct 41.0 % (36-47) 04/19/24 21: MCV 96.5 fl (85-98) 04/19/24 21: MCH 30.1 pg (27-33) 04/19/24 21: MCHC 31.2 g/dL (30-55) 04/19/24 21: RDW 14.9 % (12.1-15.1) 04/19/24 21: Plt Count 206 10^3/cmm (157-399) 04/19/24 21: MPV 11.4 fL (7.4-10.4) H 04/19/24 21: Neut % (Auto) 55.2 % 04/19/24 21: Lymph % (Auto) 29.6 % 04/19/24 21: [place] % (Auto) 11.5 % 04/19/24 21: Eos % (Auto) 2.6 % 04/19/24: Baso % (Auto) 1.0 % 04/19/24 21: Neut # (Auto) 3.84 10^3/uL (1.8-7.7) 04/19/24 21: Lymph # (Auto) 2.1 10^3/uL (0.8-4.8) 04/19/24 21: [place] # (Auto) 0.8 10^3/uL (0.2-0.9) 04/19/24 21: Eos # (Auto) 0.2 10^3/uL (0.0-0.8) 04/19/24 21: Baso # (Auto) 0.1 10^3/uL (0.0-0.1) 04/19/24 21: Nucleated RBC % (auto) 0 % 04/19/24 21: Nucleated RBCs # 0.0 /100WBC 04/19/24 21: PT 20.10 SECONDS (12.1-14.9) H 04/19/24 21:32 INR 1.65 (0.8-1.2) H 04/19/24 21:32 Sodium 143 mmol/L (136-145) 04/19/24 21:32 Potassium 4.0 mmol/L (3.5-5.1) 04/19/24 21:32 Chloride 101 mmol/L (98-107) 04/19/24 21:32 Carbon Dioxide 31 mmol/L (22-29) H 04/19/24 21:32 Anion Gap 15.0 (5-19) 04/19/24 21:32 BUN 13 mg/dL (8-23) 04/19/24 21:32 Creatinine 1.1 mg/dL (0.5-0.9) H 04/19/24 21:32 GFR Calculation Not Reportable 04/19/24 21:32 Glucose 136 mg/dL (65-115) H 04/19/24 21:32 Calculated Osmolality 298 mOsm/kg (285-295) H 04/19/24 21:32 Calcium 10.2 mg/dL (8.5-10.5) 04/19/24 21:32 Total Bilirubin 0.3 mg/dL (0.15-1.2) 04/19/24 21:32 AST 64 U/L (0-32) H 04/19/24 21:32 ALT 50 U/L (0-33) H 04/19/24 21:32 Alkaline Phosphatase 49 U/L (35-105) 04/19/24 21:32 Total Protein 7.7 g/dL (6.6-8.7) 04/19/24 21:32 Albumin 4.0 g/dL (3.5-5.2) 04/19/24 21:32 Globulin 3.7 g/dL (1.3-4.6) 04/19/24 21:32 TSH 2.11 uIU/mL (0.27-4.20) 04/19/24 21:32 All radiology interpretation(s) finalized by discharge Discharge Plan Discharge Patient Disposition: Home Clinical Impression: Headache Qualifiers: Headache type: cervicogenic headache Qualified Code(s): G44.86 - Cervicogenic headache Hypertension Qualifiers: Hypertension type: unspecified Qualified Code(s): I10 - Essential (primary) hypertension Condition: Stable Prescriptions: No Action fluticasone propionate [Flonase Allergy Relief] 50 mcg/actuation spray,suspension 2 spray intranasal DAILY PRN (Reason: Allergy Symptoms) Rx Instructions: administer into each nostril Xarelto 20 mg tablet 20 mg PO DAILY Qty: 100 3RF albuterol sulfate 90 mcg/actuation HFA aerosol inhaler 2 inh inhalation Q8H PRN (Reason: shortness of breath or wheezing) Qty: 8.5 1RF PNV 119-iron fum-folic acid 29 mg iron- 1 mg tablet 1 tab PO DAILY Qty: 30 5RF Vascepa 1 gram capsule 1 g PO DAILY Qty: 90 3RF cholecalciferol (vitamin D3) 1,250 mcg (50,000 unit) capsule 50,000 unit PO .COMPLEX Qty: 14 5RF Rx Instructions: 50,000 units orally weekly; atorvastatin 20 mg tablet 20 mg PO BEDTIME isosorbide mononitrate 60 mg tablet extended release 24 hr 60 mg PO QAM allopurinol 300 mg tablet 300 mg PO DAILY PRN (Reason: gout) loratadine 10 mg tablet 10 mg PO DAILY PRN (Reason: Allergy Symptoms) losartan 50 mg tablet 25 mg PO DAILY Qty: 60 2RF hydralazine 10 mg tablet 10 mg PO BID Qty: 60 2RF ketoconazole 2 % cream See Rx Instructions .ROUTE .COMPLEX Rx Instructions: APPLY TWICE DAILY TO RED/DRY AREAS ON EARS NEEDED. amiodarone [Pacerone] 200 mg Tablet 200 mg PO DAILY 30 Days Qty: 30 1RF meclizine 25 mg Tablet 25 mg PO TID PRN (Reason: Dizziness) Qty: 10 0RF alprazolam 0.5 mg tablet 0.25 mg PO BID PRN (Reason: stress) Qty: 10 0RF ketoconazole 2 % shampoo See Rx Instructions .ROUTE .COMPLEX PRN (Reason: SCALP IRRITATION) Rx Instructions: APPLY TOPICALLY TO THE AFFECTED AREA(S), LATHER, LEAVE FOR 5 MINUTES & THEN RINSE OFF ONCE DAILY. donepezil 10 mg tablet 10 mg PO DAILY triamcinolone acetonide 0.1 % cream 1 applic TOPICAL BID Discharge Orders: Discharge ED (Routine); Ordered 04/19/24 Ordered By: Derrick Yu Patient Instructions: Tension Headache (ED), Hypertension in the Older Adult (ED) Activity Restrictions/Additional Instructions: Thank you for choosing [facility] for your healthcare needs today. Please realize that you were seen in the emergency department and that we are providing you with an emergency medical screening exam and this may not be a complete and all exclusive of all testing and/or medical workup we may need to determine your element or severity of your illness. It is very important that you follow-up as instructed with your primary care provider or specialist for the additional evaluation and to discuss your medical treatment plan. You may return to the emergency department should you have concerns or if your condition changes or worsens in any way. Coding Level of Care Code ED Health Information Clerk for Hakeem Sebastian
[2024-04-19 21:24] VITALS: BP 151/77
[2024-04-19 21:40] LABS: Basophils # 0.1 10^3/uL (0.0-0.1); Eosinophils # 0.2 10^3/uL (0.0-0.8); Eosinophils % 2.6 %; Lymphocytes # 2.1 10^3/uL (0.8-4.8); Lymphocytes % 29.6 %; Mean Corpuscular HGB Conc 31.2 g/dL (30-55); Mean Corpuscular Hemoglobin 30.1 pg (27-33); Mean Corpuscular Volume 96.5 fl (85-98); Mean Platelet Volume 11.4 fL (7.4-10.4); Monocytes # 0.8 10^3/uL (0.2-0.9); Monocytes % 11.5 %; Neutrophils # 3.84 10^3/uL (1.8-7.7); Neutrophils % 55.2 %; Nucleated Red Blood Cells % 0 %; Platelet Count 206 10^3/cmm (157-399); Red Blood Count 4.25 10^6/uL (3.85-5.65); Red Cell Distribution Width 14.9 % (12.1-15.1); White Blood Count 6.96 10^3/uL (3.29-11.43)
[2024-04-19 21:56] LABS: INR 1.65 (0.8-1.2)
[2024-04-19 22:07] LABS: Alanine Aminotransferase 50 U/L (0-33); Alkaline Phosphatase 49 U/L (35-105); Aspartate Amino Transferase 64 U/L (0-32); Blood Urea Nitrogen 13 mg/dL (8-23); Calcium 10.2 mg/dL (8.5-10.5); Carbon Dioxide 31 mmol/L (22-29); Chloride 101 mmol/L (98-107); Creatinine Clr Calc Pharmacy 45.3363; Globulin 3.7 g/dL (1.3-4.6); Glucose 136 mg/dL (65-115); Osmolality Calculated 298 mOsm/kg (285-295); Sodium 143 mmol/L (136-145); Thyroid Stimulating Hormone 2.11 uIU/mL (0.27-4.20); Total Bilirubin 0.3 mg/dL (0.15-1.2); Total Protein 7.7 g/dL (6.6-8.7)
[2024-04-19 22:09] VITALS: BP 149/70; PULSE 61; RESP 16; O2SAT 95
[2024-04-19 22:25] VITALS: BP 154/77; PULSE 62; RESP 16; O2SAT 93
[2024-04-19] MEDS: ketorolac 60 mg/2 mL INJ IM (22:27)
[2024-04-19] MEDS: orphenadrine 30 mg/mL Inj 2 mL IM (23:18)
[2024-04-19 23:21] VITALS: BP 155/83
[2024-04-19 23:41] VITALS: BP 155/70; PULSE 61; RESP 20; O2SAT 95
== END 2024-04-19 23:42 | disposition home or self-care (01) ==
PROVIDERS: Emergency Provider Emergency Medicine
DX: G44.86 Cervicogenic headache (principal); I10 Essential (primary) hypertension; I25.10 Atherosclerotic heart disease of native coronary artery without angina pectoris; E78.5 Hyperlipidemia, unspecified
CPT/HCPCS: 36415; 70450; 80053; 84443; 85025; 85610; 96372; 99284; J1885; J2360

== ENCOUNTER 2024-04-21 05:17 | Emergency (ER) | payer MEDICARE, SELFPAY ==
[2024-04-21 05:34] VITALS: BP 173/97; PULSE 63; RESP 19; TEMP 37.1; O2SAT 95
[2024-04-21 06:07] LABS: Basophils # 0.1 10^3/uL (0.0-0.1); Basophils % 0.7 %; Eosinophils # 0.2 10^3/uL (0.0-0.8); Eosinophils % 3.4 %; Hematocrit 41.4 % (36-47); Lymphocytes % 29.4 %; Mean Corpuscular HGB Conc 30.9 g/dL (30-55); Mean Platelet Volume 11.5 fL (7.4-10.4); Monocytes # 0.7 10^3/uL (0.2-0.9); Monocytes % 9.5 %; Neutrophils # 3.87 10^3/uL (1.8-7.7); Neutrophils % 56.7 %; Nucleated Red Blood Cells % 0 %; Platelet Count 197 10^3/cmm (157-399); Red Blood Count 4.27 10^6/uL (3.85-5.65); Red Cell Distribution Width 14.8 % (12.1-15.1); White Blood Count 6.83 10^3/uL (3.29-11.43)
[2024-04-21 06:19] LABS: Alanine Aminotransferase 45 U/L (0-33); Alkaline Phosphatase 47 U/L (35-105); Anion Gap 17.8 (5-19); Aspartate Amino Transferase 53 U/L (0-32); Blood Urea Nitrogen 15 mg/dL (8-23); Calcium 9.9 mg/dL (8.5-10.5); Carbon Dioxide 25 mmol/L (22-29); Chloride 104 mmol/L (98-107); Globulin 3.3 g/dL (1.3-4.6); Glucose 143 mg/dL (65-115); Osmolality Calculated 299 mOsm/kg (285-295); Potassium 3.8 mmol/L (3.5-5.1); Sodium 143 mmol/L (136-145); Total Bilirubin 0.9 mg/dL (0.15-1.2); Total Protein 7.3 g/dL (6.6-8.7)
--- NOTE | 2024-04-21 06:20 | CTR_ITS ---
PROCEDURE INFORMATION: Exam: CTA Head With Contrast, Arteriography Exam date and time: 04/21/2024 6:42 AM Age: 79 years old Clinical indication: Pain; Headache; Additional info: HUIZAR TECHNIQUE: Imaging protocol: Computed tomographic angiography of the head with contrast. Exam focused on the arteries. 3D rendering (Not supervised by radiologist): MIP and/or 3D reconstructed images were created by the technologist. Radiation optimization: All CT scans at this facility use at least one of these dose optimization techniques: automated exposure control; mA and/or kV adjustment per patient size (includes targeted exams where dose is matched to clinical indication); or iterative reconstruction. Contrast material: OMNI 350; Contrast volume: 100 ml; Contrast route: INTRAVENOUS (IV); COMPARISON: MR angio head wo con [id number] 03/12/2024 9:37 AM RADIATION DOSE METRICS: Total DLP (mGy-cm): 676.47 FINDINGS: ANTERIOR CIRCULATION: Right internal carotid artery: Intracranial segment is patent with no significant stenosis. No aneurysm. Right middle cerebral artery: No occlusion or significant stenosis. No aneurysm. Right anterior cerebral artery: No occlusion or significant stenosis. No aneurysm. Left internal carotid artery: Intracranial segment is patent with no significant stenosis. No aneurysm. Left middle cerebral artery: No occlusion or significant stenosis. No aneurysm. Left anterior cerebral artery: No occlusion or significant stenosis. No aneurysm. POSTERIOR CIRCULATION: Right vertebral artery: No occlusion or significant stenosis. No aneurysm. Left vertebral artery: No occlusion or significant stenosis. No aneurysm. Basilar artery: No occlusion or significant stenosis. No aneurysm. Right posterior cerebral artery: No occlusion or significant stenosis. No aneurysm. Left posterior cerebral artery: No occlusion or significant stenosis. No aneurysm. origin of the bilateral manager cath lab. Brain: Diffuse cerebral atrophy, consistent with patient's age. No intracranial hemorrhage. No acute infarct. No extra-axial fluid collection. Cerebral ventricles: Ventricles size in proportion to the degree of atrophy. Bones/joints: Unremarkable. No acute fracture. Soft tissues: Unremarkable. PROCEDURE INFORMATION: Exam: CTA Neck With Contrast Exam date and time: 04/21/2024 6:42 AM Age: 79 years old Clinical indication: Pain; Headache; Additional info: HUIZAR TECHNIQUE: Imaging protocol: Computed tomographic angiography of the neck with contrast. Exam focused on the cervical segments of the vasculature. 3D rendering (Not supervised by radiologist): MIP and/or 3D reconstructed images were created by the technologist. Radiation optimization: All CT scans at this facility use at least one of these dose optimization techniques: automated exposure control; mA and/or kV adjustment per patient size (includes targeted exams where dose is matched to clinical indication); or iterative reconstruction. Contrast material: OMNI 350; Contrast volume: 100 ml; Contrast route: INTRAVENOUS (IV); COMPARISON: CT angio headneck* [id number] 01/09/2024 3:25 PM RADIATION DOSE METRICS: Total DLP (mGy-cm): 676.47 FINDINGS: Right common carotid artery: No stenosis. No dissection or occlusion. Right internal carotid artery: No stenosis of the extracranial segment. No dissection or occlusion. Right external carotid artery: No occlusion or stenosis of the origin. Left common carotid artery: No stenosis. No dissection or occlusion. Left internal carotid artery: No stenosis of the extracranial segment. No dissection or occlusion. Left external carotid artery: No occlusion or stenosis of the origin. Right vertebral artery: Moderate stenosis at the origin of the right vertebral artery. Left vertebral artery: No stenosis. No dissection or occlusion. Soft tissues: Normal. No significant soft tissue swelling. Bones/joints: No acute fracture. CT/CT angio headne* [id number] IMPRESSION: No large vessel stenosis or occlusion. IMPRESSION: No stenosis or occlusion. REFERENCES: NASCET CRITERIA. The degree of stenosis in the cervical segment of the internal carotid artery is based on NASCET criteria. Normal is no stenosis. Mild is less than 50% stenosis. Moderate is 50-69% stenosis. Severe is 70% to 99% stenosis. Total occlusion is no detectable patent lumen.
--- NOTE | 2024-04-21 06:21 | ED_ITS ---
HPI - Recheck/Abnormal Lab/Rx 2 General: Chief Complaint: Recheck/Abnormal Lab/Rx Stated Complaint: bp 166/128 lowest Time Seen by Provider: 04/21/24 05:54 Source: patient Mode of arrival: ambulatory Limitations: no limitations History of Present Illness: 79-year-old female who has been seen her e multiple times in this last week for hypertension headache along with some anxiety. Patient was seen here 2 days ago states she had recently started a new med for anxiety states that last on her blood pressure was increasing in the 180s having a mild headache she does have a resting tremor states that it worsen. She denies any chest pain denies any vomiting or diarrhea she has had some slight dizziness but is able ambulate here. Related Data Home Medications Medication Instructions Recorded Confirmed fluticasone propionate 50 2 spray intranasal DAILY PRN 09/15/21 04/21/24 mcg/actuation nasal Allergy Symptoms spray,suspension (Flonase Allergy Relief) allopurinol 300 mg tablet 300 mg PO DAILY PRN gout 07/29/23 04/21/24 atorvastatin 20 mg tablet 20 mg PO BEDTIME 07/29/23 04/21/24 isosorbide mononitrate 60 mg 60 mg PO QAM 07/29/23 04/21/24 tablet,extended release 24 hr loratadine 10 mg tablet 10 mg PO DAILY PRN Allergy Symptoms 07/29/23 04/21/24 donepezil 10 mg tablet 10 mg PO DAILY 11/02/23 04/21/24 ketoconazole 2 % shampoo See Rx Instructions .Route 11/02/23 04/21/24 .COMPLEX PRN SCALP IRRITATION triamcinolone acetonide 0.1 % 1 applic topical BID 11/02/23 04/21/24 topical cream ketoconazole 2 % topical cream See Rx Instructions .Route .COMPLEX 01/11/24 04/21/24 buspirone 5 mg tablet 5 mg PO BID 04/21/24 04/21/24 carbidopa 10 mg-levodopa 100 mg 1 tab PO TID 04/21/24 04/21/24 tablet cholecalciferol (vitamin D3) 1,250 50,000 unit PO Q7D 04/21/24 04/21/24 mcg (50,000 unit) capsule potassium chloride 10 mEq 10 meq PO BID 04/21/24 04/21/24 tablet,extended release(part/cryst) primidone 50 mg tablet 100 mg PO BEDTIME 04/21/24 04/21/24 propranolol 20 mg tablet 10 mg PO TID 04/21/24 04/21/24 Previous Rx's Medication Instructions Recorded rivaroxaban 20 mg tablet (Xarelto) 20 mg PO DAILY #100 tabs 04/24/23 icosapent ethyl 1 gram capsule 1 g PO DAILY #90 caps 08/07/23 (Vascepa) albuterol sulfate 90 mcg/actuation 2 inh inhalation Q8H PRN shortness 12/12/23 aerosol inhaler of breath or wheezing #8.5 grams hydralazine 10 mg tablet 10 mg PO BID #60 tabs 01/10/24 losartan 50 mg tablet 25 mg (1/2 x 50 mg) PO DAILY #60 01/10/24 tabs amiodarone 200 mg tablet (Pacerone) 200 mg PO DAILY 30 days #30 tabs 01/13/24 vitamins no.119-iron 1 tab PO DAILY #30 tabs 03/06/24 fumarate 29 mg-folic acid 1 mg tablet alprazolam 0.5 mg tablet 0.25 mg (1/2 x 0.5 mg) PO BID PRN 03/12/24 stress #10 tabs meclizine 25 mg tablet 25 mg PO TID PRN Dizziness #10 tabs 03/12/24 Allergies Allergy/AdvReac Type Severity Reaction Status Date / Time lisinopril Allergy coughing Verified 04/19/24 20:53 Review of Systems 2 Const: Denies: fever(s), chills, body aches or change in appetite Eyes: Denies: blurry vision or eye discomfort ENMT: Denies: throat pain or dental pain Card: Denies: chest pain Resp: Denies: dyspnea GI: Denies: abdominal pain, nausea, vomiting or diarrhea Musc: Denies: neck pain or back pain Skin/Breast: Denies: rash Neuro: Reports: headache(s) PFSH ED 2 PFSH: Medical History Reactive airway disease Memory loss UTI (urinary tract infection) Benign positional vertigo Benign hypertension Atrial fibrillation with rapid ventricular response Hypertriglyceridemia Exertional shortness of breath Hypertensive urgency Hypertension Generalized weakness Chest pain UTI (urinary tract infection) Bradycardia CAD (coronary artery disease) Dizziness Atrial fibrillation Essential tremor Generalized weakness Lactic acidosis Acute metabolic encephalopathy Sepsis Atrial fibrillation Urinary tract infection Elevated blood pressure reading Palpitation HTN (hypertension) Gout Dyslipidemia Melanoma Surgical History Hx of cataract extraction History of cholecystectomy Status post laparoscopic cholecystectomy (03/30/20) History of removal of ovarian cyst History of carpal tunnel release S/P complete hysterectomy H/O esophagogastroduodenoscopy 1977 H/O colonoscopy 2016 Family History Mother Melanoma Diabetes Stroke Father CAD (coronary artery disease) unknown age of onset, [place] at 62 Cancer Family/Other Cancer Grandmother Cancer Brother Diabetes Denies family history of Clotting disorder Dementia Chronic kidney disease (CKD) Suicide Anesthesia complication Bleeding disorder Lung disease Social History Smoking and tobacco/nicotine status: never used tobacco/nicotine Alcohol intake: never Substance/Drug Use: never Household members: spouse Marital status: Current occupational status: retired Physical Exam 2 Const: COMMON NORMALS: no acute distress, patient oriented x3 and healthy appearing HENMT: COMMON NORMALS: normocephalic and atraumatic HEAD & SCALP: n ormocephalic and atraumatic Eye: COMMON NORMALS: Equal, round and reactive pupils present and EOMs intact bilaterally PUPIL: Yes Equal, round and reactive pupils present Neck/C-Spine: COMMON NORMALS: full ROM and supple Chest: COMMONS NORMALS: normal inspection of the chest and normal palpation of entire chest wall Resp: COMMON NORMALS: normal respiratory effort, No retractions, No use of accessory muscles and clear to auscultation bilaterally AUSCULTATION: clear to auscultation bilaterally Cardio: COMMON NORMALS: regular rate, regular rhythm and No murmurs present (Cardio) RATE: regular rate RHYTHM: regular rhythm GI: COMMON NORMALS: Normal to inspection, nondistended, normoactive bowel sounds present, Soft to palpation, non-tender and no masses PALPATION: Yes Soft to palpation Extremity: COMMON NORMALS: normal to inspection and full ROM Neuro: COMMON NORMALS: patient oriented x3, moves all extremities and no focal motor deficits Psych: COMMON NORMALS: mental status grossly normal, Normal thought process present and cooperative THOUGHT PROCESS: Normal thought process present Skin: COMMON NORMALS: no rashes or lesions noted and no wounds GENERAL SKIN EXAM: no rashes or lesions noted Course 2 Vital Signs: Vital signs: Vital Signs Temperature 98.8 F 04/21/24 05:34 Pulse Rate 56 L 04/21/24 06:31 Respiratory Rate 16 04/21/24 06:31 Blood Pressure 153/76 04/21/24 06:31 Pulse Oximetry 93 04/21/24 06:31 Oxygen Delivery Me thod Room Air 04/21/24 06:31 MDM - Recheck/Abnormal Lab/Rx Medical Decision Making Patient presents here with hypertension and headache CT angio here is negative her blood pressure improves as her headache she is stable for discharge follow- up with PCP return if worsening she understands agrees to plan. Medical Records I reviewed the patient's medical records. Lab Data I reviewed the patient's lab results. 04/21/24 05:47 04/21/24 05:47 Radiology Impressions Head/Neck CTA 04/21/24 06:20 IMPRESSION: No large vessel stenosis or occlusion. IMPRESSION: No stenosis or occlusion. REFERENCES: NASCET CRITERIA. The degree of stenosis in the cervical segment of the internal carotid artery is based on NASCET criteria. Normal is no stenosis. Mild is less than 50% stenosis. Moderate is 50-69% stenosis. Severe is 70% to 99% stenosis. Total occlusion is no detectable patent lumen. Laboratory Results WBC 6.83 10^3/uL (3.29-11.43) 04/21/24 05:47 RBC 4.27 10^6/uL (3.85-5.65) 04/21/24 05:47 Hgb 12.80 g/dL (11.27-16.99) 04/21/24 05:47 Hct 41.4 % (36-47) 04/21/24 05:47 MCV 97.0 fl (85-98) 04/21/24 05:47 MCH 30.0 pg (27-33) 04/21/24 05:47 MCHC 30.9 g/dL (30-55) 04/21/24 05:47 RDW 14.8 % (12.1-15.1) 04/21/24 05:47 Plt Count 197 10^3/cmm (157-399) 04/21/24 05:47 MPV 11.5 fL (7.4-10.4) H 04/21/24 05:47 Neut % (Auto) 56.7 % 04/21/24 05:47 Lymph % (Auto) 29.4 % 04/21/24 05:47 [place] % (Auto) 9.5 % 04/21/24 05:47 Eos % (Auto) 3.4 % 04/21/24 05:47 Baso % (Auto) 0.7 % 04/21/24 05:47 Neut # (Auto) 3.87 10^3/uL (1.8-7.7) 04/21/24 05:47 Lymph # (Auto) 2.0 10^3/uL (0.8-4.8) 04/21/24 05:47 [place] # (Auto) 0.7 10^3/uL (0.2-0.9) 04/21/24 05:47 Eos # (Auto) 0.2 10^3/uL (0.0-0.8) 04/21/24 05:47 Baso # (Auto) 0.1 10^3/uL (0.0-0.1) 04/21/24 05:47 Nucleated RBC % (auto) 0 % 04/21/24 05:47 Nucleated RBCs # 0.0 /100WBC 04/21/24 05:47 Sodium 143 mmol/L (136-145) 04/21/24 05:47 Potassium 3.8 mmol/L (3.5-5.1) 04/21/24 05:47 Chloride 104 mmol/L (98-107) 04/21/24 05:47 Carbon Dioxide 25 mmol/L (22-29) 04/21/24 05:47 Anion Gap 17.8 (5-19) 04/21/24 05:47 BUN 15 mg/dL (8-23) 04/21/24 05:47 Creatinine 1.3 mg/dL (0.5-0.9) H 04/21/24 05:47 GFR Calculation Not Reportable 04/21/24 05:47 Glucose 143 mg/dL (65-115) H 04/21/24 05:47 Calculated Osmolality 299 mOsm/kg (285-295) H 04/21/24 05:47 Calcium 9.9 mg/dL (8.5-10.5) 04/21/24 05:47 Total Bilirubin 0.9 mg/dL (0.15-1.2) 04/21/24 05:47 AST 53 U/L (0-32) H 04/21/24 05:47 ALT 45 U/L (0-33) H 04/21/24 05:47 Alkaline Phosphatase 47 U/L (35-105) 04/21/24 05:47 Total Protein 7.3 g/dL (6.6-8.7) 04/21/24 05:47 Albumin 4.0 g/dL (3.5-5.2) 04/21/24 05:47 Globulin 3.3 g/dL (1.3-4.6) 04/21/24 05:47 No radiology studies performed this visit Discharge Plan Discharge Patient Disposition: Home Clinical Impression: Hypertension, Headache Condition: Stable Prescriptions: No Action fluticasone propionate [Flonase Allergy Relief] 50 mcg/actuation spray,suspension 2 spray intranasal DAILY PRN (Reason: Allergy Symptoms) Rx Instructions: administer into each nostril Xarelto 20 mg tablet 20 mg PO DAILY Qty: 100 3RF albuterol sulfate 90 mcg/actuation HFA aerosol inhaler 2 inh inhalation Q8H PRN (Reason: shortness of breath or wheezing) Qty: 8.5 1RF PNV 119-iron fum-folic acid 29 mg iron- 1 mg tablet 1 tab PO DAILY Qty: 30 5RF Vascepa 1 gram capsule 1 g PO DAILY Qty: 90 3RF atorvastatin 20 mg tablet 20 mg PO BEDTIME isosorbide mononitrate 60 mg tablet extended release 24 hr 60 mg PO QAM allopurinol 300 mg tablet 300 mg PO DAILY PRN (Reason: gout) loratadine 10 mg tablet 10 mg PO DAILY PRN (Reason: Allergy Symptoms) losartan 50 mg tablet 25 mg PO DAILY Qty: 60 2RF hydralazine 10 mg tablet 10 mg PO BID Qty: 60 2RF ketoconazole 2 % cream See Rx Instructions .ROUTE .COMPLEX Rx Instructions: APPLY TWICE DAILY TO RED/DRY AREAS ON EARS NEEDED. amiodarone [Pacerone] 200 mg Tablet 200 mg PO DAILY 30 Days Qty: 30 1RF meclizine 25 mg Tablet 25 mg PO TID PRN (Reason: Dizziness) Qty: 10 0RF alprazolam 0.5 mg tablet 0.25 mg PO BID PRN (Reason: stress) Qty: 10 0RF buspirone 5 mg tablet 5 mg PO BID carbidopa-levodopa 10-100 mg tablet 1 tab PO TID propranolol 20 mg tablet 10 mg PO TID potassium chloride 10 mEq tablet,ER particles/crystals 10 meq PO BID primidone 50 mg tablet 100 mg PO BEDTIME cholecalciferol (vitamin D3) 1,250 mcg (50,000 unit) capsule 50,000 unit PO Q7D ketoconazole 2 % shampoo See Rx Instructions .ROUTE .COMPLEX PRN (Reason: SCALP IRRITATION) Rx Instructions: APPLY TOPICALLY TO THE AFFECTED AREA(S), LATHER, LEAVE FOR 5 MINUTES, THEN RINSE OFF ONCE DAILY NEEDED. donepezil 10 mg tablet 10 mg PO DAILY triamcinolone acetonide 0.1 % cream 1 applic TOPICAL BID Discharge Orders: Discharge ED (Routine); Ordered 04/21/24 Ordered By: Luann Zepeda Referrals: Bonnie Fleming FNP [Primary Care Provider] - Discharge Diet: Advance as tolerated Discharge Activity: Resume usual activity Patient Instructions: Hypertension (ED), General Headache (ED) Coding Level of Care Code ED Spa Experience Coordinator for Hakeem Sebastian
[2024-04-21] MEDS: ketorolac 30 mg/mL INJ 15 MG IVP (06:29)
[2024-04-21] MEDS: LORazepam 0.5 mg Tablet PO (06:29)
[2024-04-21] MEDS: hyDRALAzine 20 mg/mL INJ 1 mL 10 MG IVP (06:29)
[2024-04-21 06:31] VITALS: BP 153/76; PULSE 56; RESP 16; O2SAT 93
[2024-04-21] MEDS: iohexol 350 mg/mL 500 mL Btl (per mL) IV (06:48)
[2024-04-21 07:35] VITALS: BP 145/71; PULSE 62; O2SAT 93
[2024-04-21] MEDS: HYDROmorphone 1 mg/mL INJ 1 mL 0.5 MG IVP (07:48)
--- NOTE | 2024-04-21 07:51 | PC.PHAR ---
Pt does not know her medications, neither does the spouse. Son takes care of putting meds in pill planner/scheduler. Pt has Methenamine Hippurate 1gram bid last fill 02/05/24 30ds on her external med list that has not been added to current med list since it has been 90 days.
[2024-04-21 08:18] VITALS: BP 129/47; PULSE 61; O2SAT 94
[2024-04-21 08:31] VITALS: BP 129/47; PULSE 61; O2SAT 94
== END 2024-04-21 08:33 | disposition home or self-care (01) ==
PROVIDERS: Emergency Provider Emergency Medicine; PCP Nurse Practitioner Family
DX: I10 Essential (primary) hypertension (principal); R51.9 Headache, unspecified; I25.10 Atherosclerotic heart disease of native coronary artery without angina pectoris; E78.5 Hyperlipidemia, unspecified
CPT/HCPCS: 36415; 70496; 70498; 80053; 85025; 96374; 96375; 99285; J0360; J1171; J1885

== ENCOUNTER → 2024-05-09 13:43 | Outpatient (BNVA) | payer MEDICARE, SELFPAY | PROVIDERS: PCP Nurse Practitioner Family; Visit Provider Internal Medicine | DX: I48.91 Unspecified atrial fibrillation (principal); R07.9 Chest pain, unspecified; I10 Essential (primary) hypertension; Z79.01 Long term (current) use of anticoagulants; I25.10 Atherosclerotic heart disease of native coronary artery without angina pectoris; Z95.818 Presence of other cardiac implants and grafts | CPT/HCPCS: 99214 ==

== ENCOUNTER → 2024-05-14 14:57 | Outpatient (BNVA) | payer MEDICARE, SELFPAY | PROVIDERS: PCP Nurse Practitioner Family; Visit Provider Nurse Practitioner Family | DX: L40.0 Psoriasis vulgaris (principal); Z79.899 Other long term (current) drug therapy; L21.8 Other seborrheic dermatitis; L24.9 Irritant contact dermatitis, unspecified cause; L82.1 Other seborrheic keratosis; L91.8 Other hypertrophic disorders of the skin; L73.8 Other specified follicular disorders; Z08 Encounter for follow-up examination after completed treatment for malignant neoplasm; Z85.828 Personal history of other malignant neoplasm of skin | CPT/HCPCS: 17000; 99214 ==

== ENCOUNTER 2024-06-02 10:05 | Emergency (ER) | payer MEDICARE, SELFPAY ==
[2024-06-02] VITALS (16 sets, daily range): BP systolic 128–172; BP diastolic 63–86; PULSE 54–75; RESP 14–20; TEMP 36.8; O2SAT 92–96; BMI 36.6
--- NOTE | 2024-06-02 10:28 | XRR_ITS ---
PROCEDURE INFORMATION: Exam: XR Chest Exam date and time: 06/02/2024 10:33 AM Age: 79 years old Clinical indication: Dyspnea; Additional info: Neuro symptoms TECHNIQUE: Imaging protocol: Radiologic exam of the chest. Views: 1 view. COMPARISON: CR XR chest 1V portable [id number] 01/11/2024 11:11 AM FINDINGS: Tubes, catheters and devices: A loop recorder projects on the left hemithorax. Lungs: Unremarkable. No consolidation. Pleural spaces: Unremarkable. No pleural effusion. No pneumothorax. Heart/Mediastinum: Unremarkable. No cardiomegaly. Bones/joints: Unremarkable. XR/XR chest 1V portable [id number] IMPRESSION: No acute abnormality.
--- NOTE | 2024-06-02 10:29 | CTR_ITS ---
PROCEDURE INFORMATION: Exam: CT Head Without Contrast Exam date and time: 06/02/2024 10:31 AM Age: 79 years old Clinical indication: Stroke-like symptoms; Altered mental status/memory loss; Additional info: Symptoms of acute stroke TECHNIQUE: Imaging protocol: Computed tomography of the head without contrast. Radiation optimization: All CT scans at this facility use at least one of these dose optimization techniques: automated exposure control; mA and/or kV adjustment per patient size (includes targeted exams where dose is matched to clinical indication); or iterative reconstruction. Other technique: STROKE PROTOCOL was implemented. COMPARISON: CT angio headneck* [id number] 04/21/2024 6:42 AM RADIATION DOSE METRICS: Total DLP (mGy-cm): 935.28 FINDINGS: Brain: No intracranial hemorrhage, edema or other acute abnormalities are seen in the brain. There is generalized chronic atrophy with prominence of the ventricles and sulci. No mass effect or midline shift. Cerebral ventricles: The ventricles are prominent consistent with chronic atrophy. Paranasal sinuses: Visualized sinuses are unremarkable. No fluid levels. Mastoid air cells: Visualized mastoid air cells are well aerated. Bones: Unremarkable. No acute fracture. Soft tissues: Unremarkable. CT/CT head thrombolytic [id number] IMPRESSION: No acute intracranial abnormality. ASSESSMENT: ASPECTS ([place] Stroke Program Early CT Score) is 10.
--- NOTE | 2024-06-02 10:29 | ECG_ITS ---
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
[2024-06-02 10:35] LABS: Basophils # 0.1 10^3/uL (0.0-0.1); Basophils % 0.7 %; Eosinophils # 0.2 10^3/uL (0.0-0.8); Eosinophils % 2.5 %; Hematocrit 44.6 % (36-47); Lymphocytes # 2.2 10^3/uL (0.8-4.8); Lymphocytes % 32.5 %; Mean Corpuscular HGB Conc 30.9 g/dL (30-55); Mean Corpuscular Hemoglobin 30.3 pg (27-33); Mean Platelet Volume 11.1 fL (7.4-10.4); Monocytes # 0.6 10^3/uL (0.2-0.9); Monocytes % 9.1 %; Neutrophils # 3.68 10^3/uL (1.8-7.7); Neutrophils % 54.8 %; Nucleated Red Blood Cells % 0 %; Platelet Count 233 10^3/cmm (157-399); Red Blood Count 4.55 10^6/uL (3.85-5.65); Red Cell Distribution Width 14.3 % (12.1-15.1); White Blood Count 6.73 10^3/uL (3.29-11.43)
[2024-06-02 10:45] LABS: INR 1.24 (0.8-1.2)
[2024-06-02 10:46] LABS: Partial Thromboplastin Time 30.2 SECONDS (23.9-36.7)
[2024-06-02 10:50] LABS: Alanine Aminotransferase 49 U/L (0-33); Albumin Level 4.3 g/dL (3.5-5.2); Alkaline Phosphatase 47 U/L (35-105); Anion Gap 19.2 (5-19); Aspartate Amino Transferase 52 U/L (0-32); Blood Urea Nitrogen 22 mg/dL (8-23); Calcium 9.8 mg/dL (8.5-10.5); Carbon Dioxide 25 mmol/L (22-29); Chloride 98 mmol/L (98-107); Creatinine Clr Calc Pharmacy 36.7532; Globulin 3.7 g/dL (1.3-4.6); Glucose 161 mg/dL (65-115); Osmolality Calculated 293 mOsm/kg (285-295); Potassium 4.2 mmol/L (3.5-5.1); Sodium 138 mmol/L (136-145); Total Bilirubin 0.4 mg/dL (0.15-1.2)
--- NOTE | 2024-06-02 10:50 | W.ED.DIZZY ---
HPI - Dizziness General: Chief Complaint: Dizziness Stated Complaint: dizziness, ear ringing Time Seen by Provider: 06/02/24 10:23 History of Present Illness: HPI Narrative: Patient is a 79-year-old female history of dementia. Patient brought in by for chief complaint of dizziness and left leg weakness. states that patient started complaining of dizziness last night. Patient states that she has had dizziness for at least a week. She states it comes and goes but it seemed a little more severe last night. He states that he had to help her to the bathroom and she seemed really weak. He states that she normally gets around pretty good on her own without a lot of assistance. He states this morning she does feel like she is really out of balance with the dizziness and he had to support her quite a bit. On exam here patient has slight weakness in the right leg. She can attempt to hold it up against gravity but then it kind of goes down to the bed. She holds the left leg up fine and has no drift in the arms. She has no sensory deficits, no facial droop or palsy, no sensory changes in her face. No speech issues. She is at baseline cognitive function according to . Related Data Home Medications Medication Instructions Recorded Confirmed fluticasone propionate 50 2 spray intranasal DAILY PRN 09/15/21 06/02/24 mcg/actuation nasal Allergy Symptoms spray,suspension (Flonase Allergy Relief) atorvastatin 20 mg tablet 20 mg PO BEDTIME 07/29/23 06/02/24 loratadine 10 mg tablet 10 mg PO DAILY PRN Allergy Symptoms 07/29/23 06/02/24 donepezil 10 mg tablet 10 mg PO DAILY 11/02/23 06/02/24 ketoconazole 2 % shampoo See Rx Instructions .Route 11/02/23 06/02/24 .COMPLEX PRN SCALP IRRITATION triamcinolone acetonide 0.1 % 1 applic topical BID PRN Rash 11/02/23 06/02/24 topical cream buspirone 5 mg tablet 5 mg PO DAILY 04/21/24 06/02/24 cholecalciferol (vitamin D3) 1,250 50,000 unit PO Q7D 04/21/24 06/02/24 mcg (50,000 unit) capsule clonidine HCl 0.1 mg tablet 0.1 mg PO TID PRN bp 05/09/24 06/02/24 alprazolam 0.5 mg tablet 0.25 mg PO DAILY PRN stress 06/02/24 06/02/24 hydrocortisone 2.5 % topical cream See Rx Instructions .Route 06/02/24 06/02/24 .COMPLEX Rash ofloxacin 0.3 % ear drops 4 drp otic (ear) BID 06/02/24 06/02/24 rivaroxaban 20 mg tablet (Xarelto) 20 mg PO QAM 06/02/24 06/02/24 Previous Rx's Medication Instructions Recorded icosapent ethyl 1 gram capsule 1 g PO DAILY #90 caps 08/07/23 (Vascepa) hydralazine 10 mg tablet 10 mg PO BID #60 tabs 01/10/24 amiodarone 200 mg tablet (Pacerone) 200 mg PO DAILY 30 days #30 tabs 01/13/24 vitamins no.119-iron 1 tab PO DAILY #30 tabs 03/06/24 fumarate 29 mg-folic acid 1 mg tablet meclizine 25 mg tablet 25 mg PO TID PRN Dizziness #10 tabs 03/12/24 losartan 50 mg tablet 50 mg PO DAILY #90 tabs 05/09/24 isosorbide mononitrate 60 mg 60 mg PO QAM #100 tabs 05/13/24 tablet,extended release 24 hr meclizine 12.5 mg tablet 12.5 mg PO TID PRN dizziness 7 06/02/24 days #20 tabs Allergies Allergy/AdvReac Type Severity Reaction Status Date / Time lisinopril Allergy coughing Verified 05/09/24 14:41 [facility] ED PFSH: Medical History Reactive airway disease Memory loss UTI (urinary tract infection) Benign positional vertigo Benign hypertension Atrial fibrillation with rapid ventricular response Hypertriglyceridemia Exertional shortness of breath Hypertensive urgency Hypertension Generalized weakness Chest pain UTI (urinary tract infection) Bradycardia CAD (coronary artery disease) Dizziness Atrial fibrillation Essential tremor Generalized weakness Lactic acidosis Acute metabolic encephalopathy Sepsis Atrial fibrillation Urinary tract infection Elevated blood pressure reading Palpitation HTN (hypertension) Gout Dyslipidemia Melanoma Surgical History Hx of cataract extraction History of cholecystectomy Status post laparoscopic cholecystectomy (03/30/20) History of removal of ovarian cyst History of carpal tunnel release S/P complete hysterectomy H/O esophagogastroduodenoscopy 1977 H/O colonoscopy 2016 Family History Mother Melanoma Diabetes Stroke Father CAD (coronary artery disease) unknown age of onset, [place] at 62 Cancer Family/Other Cancer Grandmother Cancer Brother Diabetes Denies family history of Clotting disorder Dementia Chronic kidney disease (CKD) Suicide Anesthesia complication Bleeding disorder Lung disease Social History Smoking and tobacco/nicotine status: never used tobacco/nicotine Alcohol intake: never Substance/Drug Use: never Household members: spouse Marital status: Current occupational status: retired Physical Exam Const: COMMON NORMALS: no acute distress, patient oriented x3 and alert GENERAL APPEARANCE: cooperative HENMT: COMMON NORMALS: normocephalic and atraumatic HEAD & SCALP: normocephalic and atraumatic Eye: COMMON NORMALS: Equal, round and reactive pupils present and EOMs intact bilaterally PUPIL: Yes Equal, round and reactive pupils present Neck/C-Spine: COMMON NORMALS: full ROM and supple Chest: COMMONS NORMALS: normal inspection of the chest Resp: COMMON NORMALS: normal respiratory effort and clear to auscultation bilaterally AUSCULTATION: clear to auscultation bilaterally Cardio: COMMON NORMALS: regular rate and regular rhythm RATE: regular rate RHYTHM: regular rhythm GI: COMMON NORMALS: Normal to inspection, nondistended, normoactive bowel sounds present and non-tender : COMMON NORMALS: Yes no CVA tenderness BLADDER/KIDNEY EXAM: Yes no CVA tenderness Back/Pelvis: COMMON NORMALS: no CVA tenderness and thoracic and lumbar spine normal to inspection Extremity: COMMON NORMALS: normal to inspection, full ROM and no pedal edema Neuro: COMMON NORMALS: patient oriented x3 SENSORIUM/ORIENTATION: Yes alert SPEECH: speech normal OTHER: Patient has slight drift in the right leg. She has trouble holding it up off the bed but she pushes strongly against my hand and indicates good strength. No deficits in the left leg or the upper extremities. No other neurologic findings. Psych: COMMON NORMALS: cooperative Skin: COMMON NORMALS: no rashes or lesions noted GENERAL SKIN EXAM: no rashes or lesions noted Course Vital Signs: Vital signs: Vital Signs Temperature 98.3 F 06/02/24 10:18 Pulse Rate 75 06/02/24 14:33 Respiratory Rate 16 06/02/24 14:33 Blood Pressure 135/77 06/02/24 14:33 Pulse Oximetry 95 06/02/24 14:33 Oxygen Delivery Me thod Room Air 06/02/24 10:18 MDM - Dizziness Medical Decision Making Patient primarily complaining of dizziness. She was having a little trouble holding her right leg up off the bed but otherwise had good strength and no other complaints. Patient head CT negative. CT angio head and neck were negative as well. Lab work is unremarkable with normal blood work and urine a little concentrated but no infection. Patient was given scopolamine and meclizine. Dizziness has resolved. She got up to the bedside commode without issue. Her leg is back to normal and she can hold it up off the bed without any issue. I did speak to Dr. Matthew, neurology, and reviewed case. Patient had NIH of 1 at most due to right leg. Patient was not a candidate as such for TKA therapy and has completely resolved at this time. Dr. Matthew recommended discharge if remainder of evaluation was normal. Patient feels great at this time and family comfortable with going home. Have told her she can stay on the scopolamine patch for 3 days and we will send her home with additional medication for dizziness. Lab Data 06/02/24 10:26 06/02/24 10:26 Radiology Impressions Chest X-Ray 06/02/24 10:28 IMPRESSION: No acute abnormality. Head CT 06/02/24 10:29 IMPRESSION: No acute intracranial abnormality. ASSESSMENT: ASPECTS (Carole Stroke Program Early CT Score) is 10. ADDENDUM: 06/02/24 1044 THIS REPORT CONTAINS FINDINGS THAT MAY BE CRITICAL TO PATIENT CARE. The findings were verbally communicated via telephone conference with Robbie Romero at 10:43 AM [employer] PHYSICIAN LIAISON on 06/02/2024. The findings were acknowledged and understood. Head/Neck CTA 06/02/24 10:55 IMPRESSION: No large vessel stenosis or occlusion. IMPRESSION: No stenosis or occlusion. REFERENCES: NASCET CRITERIA. The degree of stenosis in the cervical segment of the internal carotid artery is based on NASCET criteria. Normal is no stenosis. Mild is less than 50% stenosis. Moderate is 50-69% stenosis. Severe is 70% to 99% stenosis. Total occlusion is no detectable patent lumen. Laboratory Results WBC 6.73 10^3/uL (3.29-11.43) 06/02/24 10: RBC 4.55 10^6/uL (3.85-5.65) 06/02/24 10: Hgb 13.80 g/dL (11.27-16.99) 06/02/24 10: Hct 44.6 % (36-47) 06/02/24 10: MCV 98.0 fl (85-98) 06/02/24 10: MCH 30.3 pg (27-33) 06/02/24 10: MCHC 30.9 g/dL (30-55) 06/02/24 10: RDW 14.3 % (12.1-15.1) 06/02/24 10: Plt Count 233 10^3/cmm (157-399) 06/02/24 10: MPV 11.1 fL (7.4-10.4) H 06/02/24 10: Neut % (Auto) 54.8 % 06/02/24 10: Lymph % (Auto) 32.5 % 06/02/24 10: [place] % (Auto) 9.1 % 06/02/24 10: Eos % (Auto) 2.5 % 06/02/24 10: Baso % (Auto) 0.7 % 06/02/24 10: Neut # (Auto) 3.68 10^3/uL (1.8-7.7) 06/02/24 10: Lymph # (Auto) 2.2 10^3/uL (0.8-4.8) 06/02/24 10: [place] # (Auto) 0.6 10^3/uL (0.2-0.9) 06/02/24 10: Eos # (Auto) 0.2 10^3/uL (0.0-0.8) 06/02/24 10: Baso # (Auto) 0.1 10^3/uL (0.0-0.1) 06/02/24 10:26 Nucleated RBC % (auto) 0 % 06/02/24 10: Nucleated RBCs # 0.0 /100WBC 06/02/24 10:26 PT 16.50 SECONDS (12.1-14.9) H 06/02/24 10: INR 1.24 (0.8-1.2) H 06/02/24 10:26 APTT 30.2 SECONDS (23.9-36.7) 06/02/24 10:26 Sodium 138 mmol/L (136-145) 06/02/24 10:26 Potassium 4.2 mmol/L (3.5-5.1) 06/02/24 10:26 Chloride 98 mmol/L (98-107) 06/02/24 10: Carbon Dioxide 25 mmol/L (22-29) 06/02/24 10:26 Anion Gap 19.2 (5-19) H 06/02/24 10:26 BUN 22 mg/dL (8-23) 06/02/24 10:26 Creatinine 1.3 mg/dL (0.5-0.9) H 06/02/24 10:26 GFR Calculation Not Reportable 06/02/24 10:26 Glucose 161 mg/dL (65-115) H 06/02/24 10:26 POC Glucose 136 mg/dL (70-110) H 06/02/24 11:03 Calculated Osmolality 293 mOsm/kg (285-295) 06/02/24 10: Calcium 9.8 mg/dL (8.5-10.5) 06/02/24 10:26 Total Bilirubin 0.4 mg/dL (0.15-1.2) 06/02/24 10:26 AST 52 U/L (0-32) H 06/02/24 10:26 ALT 49 U/L (0-33) H 06/02/24 10:26 Alkaline Phosphatase 47 U/L (35-105) 06/02/24 10:26 Total Protein 8.0 g/dL (6.6-8.7) 06/02/24 10: Albumin 4.3 g/dL (3.5-5.2) 06/02/24 10:26 Globulin 3.7 g/dL (1.3-4.6) 06/02/24 10:26 Urine Color Yellow (Yellow) 06/02/24 14:13 Urine Appearance Clear (CLEAR) 06/02/24 14:13 Urine pH 5.0 (5-7) 06/02/24 14:13 Ur Specific [place] 1.053 (1.005-1.030) H 06/02/24 14:13 Urine Protein Negative (Negative) 06/02/24 14:13 Urine Glucose (UA) Negative (Normal) 06/02/24 14:13 Urine Ketones Negative (Negative) 06/02/24 14:13 Urine Blood Negative (Negative) 06/02/24 14:13 Urine Nitrate Negative (Negative) 06/02/24 14:13 Urine Bilirubin Negative (Negative) 06/02/24 14:13 Urine Urobilinogen 0.2 mg/dL (Negative) 06/02/24 14:13 Ur Leukocyte Esterase Trace (Negative) A 06/02/24 14:13 Urine RBC 0-2 /hpf (0-2) 06/02/24 14:13 Urine WBC 6-10 /hpf (0-5) 06/02/24 14:13 Ur Squamous Epith Cells 0-5 /hpf (0-5) 06/02/24 14:13 Amorphous Sediment Not Reportable 06/02/24 14:13 Urine Bacteria None seen /hpf (NONE) 06/02/24 14:13 Hyaline Casts 1.65 /lpf 06/02/24 14:13 All radiology interpretation(s) finalized by discharge Discharge Plan Discharge Patient Disposition: Home Clinical Impression: Benign paroxysmal positional vertigo Qualifiers: Laterality: unspecified laterality Qualified Code(s): H81.10 - Benign paroxysmal vertigo, unspecified ear Condition: Stable Prescriptions: New meclizine 12.5 mg tablet 12.5 mg PO TID PRN (Reason: dizziness) 7 Days Qty: 20 0RF No Action fluticasone propionate [Flonase Allergy Relief] 50 mcg/actuation spray,suspension 2 spray intranasal DAILY PRN (Reason: Allergy Symptoms) Rx Instructions: administer into each nostril PNV 119-iron fum-folic acid 29 mg iron- 1 mg tablet 1 tab PO DAILY Qty: 30 5RF clonidine HCl 0.1 mg tablet 0.1 mg PO TID PRN (Reason: bp) Vascepa 1 gram capsule 1 g PO DAILY Qty: 90 3RF losartan 50 mg tablet 50 mg PO DAILY Qty: 90 3RF isosorbide mononitrate 60 mg tablet extended release 24 hr 60 mg PO QAM Qty: 100 3RF atorvastatin 20 mg tablet 20 mg PO BEDTIME loratadine 10 mg tablet 10 mg PO DAILY PRN (Reason: Allergy Symptoms) hydralazine 10 mg tablet 10 mg PO BID Qty: 60 2RF amiodarone [Pacerone] 200 mg Tablet 200 mg PO DAILY 30 Days Qty: 30 1RF meclizine 25 mg Tablet 25 mg PO TID PRN (Reason: Dizziness) Qty: 10 0RF buspirone 5 mg tablet 5 mg PO DAILY cholecalciferol (vitamin D3) 1,250 mcg (50,000 unit) capsule 50,000 unit PO Q7D Rx Instructions: Monday alprazolam 0.5 mg tablet 0.25 mg PO DAILY PRN (Reason: stress) Xarelto 20 mg tablet 20 mg PO QAM ofloxacin 0.3 % drops 4 drp otic (ear) BID hydrocortisone 2.5 % cream See Rx Instructions .ROUTE .COMPLEX Rx Instructions: APPLY TWICE DAILY TO RED/THICKENED RASH AND PLAQUES ON FACE NEEDED. NO MORE THAN TWO WEEKS PER MONTH. ketoconazole 2 % shampoo See Rx Instructions .ROUTE .COMPLEX PRN (Reason: SCALP IRRITATION) Rx Instructions: APPLY TOPICALLY TO THE AFFECTED AREA(S), LATHER, LEAVE FOR 5 MINUTES, THEN RINSE OFF ONCE DAILY NEEDED. donepezil 10 mg tablet 10 mg PO DAILY triamcinolone acetonide 0.1 % cream 1 applic TOPICAL BID PRN (Reason: Rash) Discharge Orders: Discharge ED (Routine); Ordered 06/02/24 Ordered By: Robbie Romero Referrals: Bonnie Fleming FNP [Primary Care Provider] - Discharge Diet: Usual diet Discharge Activity: Increase activity as tolerated Patient Instructions: Opioid Safety, Pain Management, Benign Paroxysmal Positional Vertigo (ED) Coding Level of Care Code ED [employer]ch[employer] Displayer for Hakeem Sebastian
--- NOTE | 2024-06-02 10:55 | CTR_ITS ---
PROCEDURE INFORMATION: Exam: CTA Head With Contrast, Arteriography Exam date and time: 06/02/2024 11:07 AM Age: 79 years old Clinical indication: Dizziness and giddiness; Additional info: Dizziness with minor weakness in right leg TECHNIQUE: Imaging protocol: Computed tomographic angiography of the head with contrast. Exam focused on the arteries. 3D rendering (Not supervised by radiologist): MIP and/or 3D reconstructed images were created by the technologist. Radiation optimization: All CT scans at this facility use at least one of these dose optimization techniques: automated exposure control; mA and/or kV adjustment per patient size (includes targeted exams where dose is matched to clinical indication); or iterative reconstruction. Contrast material: OMNI 350; Contrast volume: 100 ml; Contrast route: INTRAVENOUS (IV); COMPARISON: CT angio headneck* [id number] 04/21/2024 6:42 AM RADIATION DOSE METRICS: Total DLP (mGy-cm): 385.67 FINDINGS: ANTERIOR CIRCULATION: Right internal carotid artery: Intracranial segment is patent with no significant stenosis. No aneurysm. Right middle cerebral artery: No occlusion or significant stenosis. No aneurysm. Right anterior cerebral artery: No occlusion or significant stenosis. No aneurysm. Left internal carotid artery: Intracranial segment is patent with no significant stenosis. No aneurysm. Left middle cerebral artery: No occlusion or significant stenosis. No aneurysm. Left anterior cerebral artery: No occlusion or significant stenosis. No aneurysm. POSTERIOR CIRCULATION: Right vertebral artery: No occlusion or significant stenosis. No aneurysm. Left vertebral artery: No occlusion or significant stenosis. No aneurysm. Basilar artery: No occlusion or significant stenosis. No aneurysm. Right posterior cerebral artery: No occlusion or significant stenosis. No aneurysm. Left posterior cerebral artery: No occlusion or significant stenosis. No aneurysm. Brain: No definite mass, mass effect, or midline shift. Cerebral ventricles: No ventriculomegaly. Bones/joints: Unremarkable. No acute fracture. Soft tissues: Unremarkable. PROCEDURE INFORMATION: Exam: CTA Neck With Contrast Exam date and time: 06/02/2024 11:07 AM Age: 79 years old Clinical indication: Dizziness and giddiness; Additional info: Dizziness with minor weakness in right leg TECHNIQUE: Imaging protocol: Computed tomographic angiography of the neck with contrast. Exam focused on the cervical segments of the vasculature. 3D rendering (Not supervised by radiologist): MIP and/or 3D reconstructed images were created by the technologist. Radiation optimization: All CT scans at this facility use at least one of these dose optimization techniques: automated exposure control; mA and/or kV adjustment per patient size (includes targeted exams where dose is matched to clinical indication); or iterative reconstruction. Contrast material: OMNI 350; Contrast volume: 100 ml; Contrast route: INTRAVENOUS (IV); COMPARISON: CT angio headneck* [id number] 04/21/2024 6:42 AM RADIATION DOSE METRICS: Total DLP (mGy-cm): 385.67 FINDINGS: Right common carotid artery: No stenosis. No dissection or occlusion. Right internal carotid artery: No stenosis of the extracranial segment. No dissection or occlusion. Right external carotid artery: No occlusion or stenosis of the origin. Left common carotid artery: No stenosis. No dissection or occlusion. Left internal carotid artery: No stenosis of the extracranial segment. No dissection or occlusion. Left external carotid artery: No occlusion or stenosis of the origin. Right vertebral artery: No stenosis. No dissection or occlusion. Left vertebral artery: No stenosis. No dissection or occlusion. Soft tissues: Normal. No significant soft tissue swelling. Bones/joints: No acute fracture. CT/CT angio headne* [id number] IMPRESSION: No large vessel stenosis or occlusion. IMPRESSION: No stenosis or occlusion. REFERENCES: NASCET CRITERIA. The degree of stenosis in the cervical segment of the internal carotid artery is based on NASCET criteria. Normal is no stenosis. Mild is less than 50% stenosis. Moderate is 50-69% stenosis. Severe is 70% to 99% stenosis. Total occlusion is no detectable patent lumen.
[2024-06-02 11:07] LABS: Glucose Point of Care 136 mg/dL (70-110)
[2024-06-02] MEDS: iohexol 350 mg/mL 500 mL Btl (per mL) IV (11:12)
--- NOTE | 2024-06-02 11:39 | PC.PHAR ---
Son states pt took am meds and possibly threw them all up in the waiting room.
[2024-06-02] MEDS: scopolamine 1 mg PATCH 1 PATCH TRANSDERMA (13:40)
[2024-06-02] MEDS: meclizine 25 mg tablet PO (13:40)
[2024-06-02 14:19] LABS: Bilirubin Urine Negative (Negative); Blood Urine Negative (Negative); Glucose Urine UA Negative (Normal); Ketones Urine Negative (Negative); Leukocyte Esterase Urine Trace (Negative); Nitrate Urine Negative (Negative); Protein Urine Negative (Negative); Urine Appearance Clear (CLEAR); Urine Color Yellow (Yellow); Urobilinogen Urine 0.2 mg/dL (Negative)
[2024-06-02 14:23] LABS: Add Urine Microscopic? YES; Bacteria Urine None Seen /hpf; Hyaline Casts Urine 1.65 /lpf; RBC Urine 0-2 /hpf (0-2); Squamous Epithelial Cell Urine 0-5 /hpf (0-5)
[2024-06-02 14:24] LABS: Specific Gravity, Urine 1.053 (1.005-1.030)
== END 2024-06-02 14:58 | disposition home or self-care (01) ==
PROVIDERS: Emergency Provider Emergency Medicine; PCP Nurse Practitioner Family
DX: H81.10 Benign paroxysmal vertigo, unspecified ear (principal); I25.10 Atherosclerotic heart disease of native coronary artery without angina pectoris; I10 Essential (primary) hypertension; E78.5 Hyperlipidemia, unspecified
CPT/HCPCS: 12345; 36416; 70450; 70496; 70498; 71045; 80053; 81001; 82962; 85025; 85610; 85730; 93005; 99285; J8597

== ENCOUNTER 2024-07-13 18:49 | Emergency (ER) | payer MEDICARE, SELFPAY ==
[2024-07-13 18:54] VITALS: BP 183/92; PULSE 68; RESP 16; TEMP 36.9; O2SAT 94; BMI 40.2
--- NOTE | 2024-07-13 19:11 | CTR_ITS ---
PROCEDURE INFORMATION: Exam: CT Head Without Contrast Exam date and time: 07/13/2024 7:32 PM Age: 79 years old Clinical indication: Injury or trauma; Blunt trauma (contusions or hematomas); Ground level fall with headstrike. Anticoagulated. ; Additional info: Fall hit head on anticoagulants TECHNIQUE: Imaging protocol: Computed tomography of the head without contrast. Radiation optimization: All CT scans at this facility use at least one of these dose optimization techniques: automated exposure control; mA and/or kV adjustment per patient size (includes targeted exams where dose is matched to clinical indication); or iterative reconstruction. COMPARISON: CT angio headneck* [id number] 06/02/2024 11:07 AM RADIATION DOSE METRICS: Total DLP (mGy-cm): 644.78 FINDINGS: Brain: Age-related brain parenchymal atrophy. Areas of hypoattenuation in the periventricular and subcortical deep white matter likely on the basis of chronic microvascular ischemic changes. No acute intra cranial hemorrhage. No mass effect or midline shift. No definitive CT evidence of acute territorial infarction. Age indeterminate right cerebellar hemisphere hypoattenuation which may reflect acute/subacute infarct. Cerebral ventricles: Mild prominence of the lateral ventricular system likely on the basis of ex vacuo dilatation. Paranasal sinuses: Visualized sinuses are unremarkable. No fluid levels. Mastoid air cells: Visualized mastoid air cells are well aerated. Bones: Intact calvarium. Soft tissues: Unremarkable. CT/CT head wo con* [id number] IMPRESSION: Age indeterminate right cerebellar hemisphere hypoattenuation which may reflect acute/subacute infarct. No acute intracranial hemorrhage.
--- NOTE | 2024-07-13 19:11 | XRR_ITS ---
PROCEDURE INFORMATION: Exam: XR Left Ankle Exam date and time: 07/13/2024 7:19 PM Age: 79 years old Clinical indication: Injury or trauma; Blunt trauma; Fall with diffuse left ankle pain. ; Additional info: Fall ankle pain TECHNIQUE: Imaging protocol: Radiologic exam of the left ankle. Views: 3 or more views. COMPARISON: US ROR venous duplex LE LT 03/27/2023 11:25 AM FINDINGS: Bones/joints: Intra-articular body within the tibiotalar joint. No acute definite fracture. No dislocation. Plantar calcaneal spurring. Midfoot degenerative changes. Soft tissues: Soft tissue swelling surrounding the ankle joint. XR/XR ankle LT min 3V* [id number] IMPRESSION: As above.
[2024-07-13 20:16] LABS: Basophils # 0.1 10^3/uL (0.0-0.1); Basophils % 0.6 %; Eosinophils # 0.1 10^3/uL (0.0-0.8); Eosinophils % 1.1 %; Hematocrit 39.4 % (36-47); Lymphocytes % 18.7 %; Mean Corpuscular HGB Conc 31.5 g/dL (30-55); Mean Corpuscular Hemoglobin 30.8 pg (27-33); Mean Corpuscular Volume 97.8 fl (85-98); Mean Platelet Volume 10.9 fL (7.4-10.4); Monocytes # 1.5 10^3/uL (0.2-0.9); Monocytes % 13.5 %; Neutrophils # 7.06 10^3/uL (1.8-7.7); Neutrophils % 65.8 %; Nucleated Red Blood Cells % 0 %; Platelet Count 218 10^3/cmm (157-399); Red Blood Count 4.03 10^6/uL (3.85-5.65); Red Cell Distribution Width 13.7 % (12.1-15.1); White Blood Count 10.73 10^3/uL (3.29-11.43)
--- NOTE | 2024-07-13 20:23 | W.ED.FALL ---
HPI - Fall General: Chief Complaint: Fall Stated Complaint: fall injured L ankle, hit head Time Seen by Provider: 07/13/24 19:27 History of Present Illness: 79-year-old female with a history of dementia. She fell at home at some point family believes. The patient does not necessarily remember the fall. She did hurt her left ankle, and likely hit her head. She is complaining of left ankle pain and swelling along with a headache. She has not been running a fever or coughing. She did have a urinary tract infection diagnosed a few days ago. She has been on antibiotics. She does not have any other complaints. Related Data Home Medications ?Medication ?Instructions ?Recorded ?Confirmed fluticasone propionate 50 2 spray intranasal DAILY PRN 09/15/21 06/02/24 mcg/actuation nasal Allergy Symptoms spray,suspension (Flonase Allergy Relief) atorvastatin 20 mg tablet 20 mg PO BEDTIME 07/29/23 06/02/24 loratadine 10 mg tablet 10 mg PO DAILY PRN Allergy Symptoms 07/29/23 06/02/24 donepezil 10 mg tablet 10 mg PO DAILY 11/02/23 06/02/24 ketoconazole 2 % shampoo See Rx Instructions .Route 11/02/23 06/02/24 .COMPLEX PRN SCALP IRRITATION triamcinolone acetonide 0.1 % 1 applic topical BID PRN Rash 11/02/23 06/02/24 topical cream buspirone 5 mg tablet 5 mg PO DAILY 04/21/24 06/02/24 cholecalciferol (vitamin D3) 1,250 50,000 unit PO Q7D 04/21/24 06/02/24 mcg (50,000 unit) capsule clonidine HCl 0.1 mg tablet 0.1 mg PO TID PRN bp 05/09/24 06/02/24 alprazolam 0.5 mg tablet 0.25 mg PO DAILY PRN stress 06/02/24 06/02/24 hydrocortisone 2.5 % topical cream See Rx Instructions .Route 06/02/24 06/02/24 .COMPLEX Rash ofloxacin 0.3 % ear drops 4 drp otic (ear) BID 06/02/24 06/02/24 rivaroxaban 20 mg tablet (Xarelto) 20 mg PO QAM 06/02/24 06/02/24 Previous Rx's ?Medication ?Instructions ?Recorded icosapent ethyl 1 gram capsule 1 g PO DAILY #90 caps 08/07/23 (Vascepa) amiodarone 200 mg tablet (Pacerone) 200 mg PO DAILY 30 days #30 tabs 01/13/24 vitamins no.119-iron 1 tab PO DAILY #30 tabs 03/06/24 fumarate 29 mg-folic acid 1 mg tablet meclizine 25 mg tablet 25 mg PO TID PRN Dizziness #10 tabs 03/12/24 isosorbide mononitrate 60 mg 60 mg PO QAM #100 tabs 05/13/24 tablet,extended release 24 hr losartan 50 mg tablet 50 mg PO DAILY #180 tabs 06/03/24 hydralazine 25 mg tablet 25 mg PO BID #60 tabs 06/18/24 Allergies Allergy/AdvReac Type Severity Reaction Status Date / Time lisinopril Allergy coughing Verified 05/09/24 14:41 [facility] ED PFSH: Medical History Reactive airway disease Memory loss UTI (urinary tract infection) Benign positional vertigo Benign hypertension Atrial fibrillation with rapid ventricular response Hypertriglyceridemia Exertional shortness of breath Hypertensive urgency Hypertension Generalized weakness Chest pain UTI (urinary tract infection) Bradycardia CAD (coronary artery disease) Dizziness Atrial fibrillation Essential tremor Generalized weakness Lactic acidosis Acute metabolic encephalopathy Sepsis Atrial fibrillation Urinary tract infection Elevated blood pressure reading Palpitation HTN (hypertension) Gout Dyslipidemia Melanoma Surgical History Hx of cataract extraction History of cholecystectomy Status post laparoscopic cholecystectomy (03/30/20) History of removal of ovarian cyst History of carpal tunnel release S/P complete hysterectomy H/O esophagogastroduodenoscopy 1977 H/O colonoscopy 2016 Family History Mother Melanoma Diabetes Stroke Father CAD (coronary artery disease) unknown age of onset, [place] at 62 Cancer Family/Other Cancer Grandmother Cancer Brother Diabetes Denies family history of Clotting disorder Dementia Chronic kidney disease (CKD) Suicide Anesthesia complication Bleeding disorder Lung disease Social History Smoking and tobacco/nicotine status: never used tobacco/nicotine Alcohol intake: never Substance/Drug Use: never Household members: spouse Marital status: Current occupational status: retired Physical Exam Const: GENERAL APPEARANCE: cooperative and frail appearing; not ill appearing ORIENTATION/CONSCIOUSNESS: Yes awake, Yes oriented to person and Yes oriented to place HENMT: COMMON NORMALS: normocephalic HEAD & SCALP: normocephalic Eye: COMMON NORMALS: Equal, round and reactive pupils present and EOMs intact bilaterally PUPIL: Yes Equal, round and reactive pupils present Chest: CHEST: Yes Symmetrical chest wall rise Resp: COMMON NORMALS: normal respiratory effort, No use of accessory muscles and clear to auscultation bilaterally AUSCULTATION: clear to auscultation bilaterally Cardio: COMMON NORMALS: regular rate and regular rhythm RATE: regular rate RHYTHM: regular rhythm GI: COMMON NORMALS: Soft to palpation PALPATION: Yes Soft to palpation Extremity: NARRATIVE EXTREMITY EXAM: Exam lower extremity reveals lateral ankle swelling. There is tenderness over the distal fibula, anterior ankle joint line, and medial malleolus. No deformity. Sensation is intact. Neuro: SENSORIUM/ORIENTATION: Yes oriented to person and Yes oriented to place Course Vital Signs: Vital signs: Vital Signs Temperature 98.4 F 07/13/24 18:54 Pulse Rate 77 07/13/24 21:45 Respiratory Rate 18 07/13/24 20:31 Blood Pressure 152/83 07/13/24 21:45 Pulse Oximetry 95 07/13/24 21:45 Oxygen Delivery Me thod Room Air 07/13/24 20:31 MDM - Fall Medical Decision Making Patient does not have any signs of hemorrhage. Noted is hypoattenuation in the right cerebellar area which could reflect subacute infarct, however findings are similar on exam in May. The patient is already anticoagulated. Ankle x-ray does not reveal a fracture. She is placed in a ankle stirrup brace. She has a walker at home. Laboratory is not remarkable including her urine which is clear. She will be discharged. Outpatient follow-up. Return for worsening symptoms. Lab Data 07/13/24 20:08 07/13/24 20:08 Radiology Impressions Ankle X-Ray 07/13/24 19:11 IMPRESSION: As above. Head CT 07/13/24 19:11 IMPRESSION: Age indeterminate right cerebellar hemisphere hypoattenuation which may reflect acute/subacute infarct. No acute intracranial hemorrhage. Laboratory Results WBC 10.73 10^3/uL (3.29-11.43) 07/13/24 20:08 RBC 4.03 10^6/uL (3.85-5.65) 07/13/24 20:08 Hgb 12.40 g/dL (11.27-16.99) 07/13/24 20:08 Hct 39.4 % (36-47) 07/13/24 20:08 MCV 97.8 fl (85-98) 07/13/24 20:08 MCH 30.8 pg (27-33) 07/13/24 20:08 MCHC 31.5 g/dL (30-55) 07/13/24 20:08 RDW 13.7 % (12.1-15.1) 07/13/24 20:08 Plt Count 218 10^3/cmm (157-399) 07/13/24 20:08 MPV 10.9 fL (7.4-10.4) H 07/13/24 20:08 Neut % (Auto) 65.8 % 07/13/24 20:08 Lymph % (Auto) 18.7 % 07/13/24 20:08 [place] % (Auto) 13.5 % 07/13/24 20:08 Eos % (Auto) 1.1 % 07/13/24 20:08 Baso % (Auto) 0.6 % 07/13/24 20:08 Neut # (Auto) 7.06 10^3/uL (1.8-7.7) 07/13/24 20:08 Lymph # (Auto) 2.0 10^3/uL (0.8-4.8) 07/13/24 20:08 [place] # (Auto) 1.5 10^3/uL (0.2-0.9) H 07/13/24 20:08 Eos # (Auto) 0.1 10^3/uL (0.0-0.8) 07/13/24 20:08 Baso # (Auto) 0.1 10^3/uL (0.0-0.1) 07/13/24 20:08 Nucleated RBC % (auto) 0 % 07/13/24 20:08 Nucleated RBCs # 0.0 /100WBC 07/13/24 20:08 Sodium 140 mmol/L (136-145) 07/13/24 20:08 Potassium 3.9 mmol/L (3.5-5.1) 07/13/24 20:08 Chloride 102 mmol/L (98-107) 07/13/24 20:08 Carbon Dioxide 26 mmol/L (22-29) 07/13/24 20:08 Anion Gap 15.9 (5-19) 07/13/24 20:08 BUN 14 mg/dL (8-23) 07/13/24 20:08 Creatinine 1.1 mg/dL (0.5-0.9) H 07/13/24 20:08 GFR Calculation Not Reportable 07/13/24 20:08 Glucose 117 mg/dL (65-115) H 07/13/24 20:08 Calculated Osmolality 292 mOsm/kg (285-295) 07/13/24 20:08 Calcium 9.7 mg/dL (8.5-10.5) 07/13/24 20:08 Total Bilirubin 0.6 mg/dL (0.15-1.2) 07/13/24 20:08 AST 32 U/L (0-32) 07/13/24 20:08 ALT 33 U/L (0-33) 07/13/24 20:08 Alkaline Phosphatase 45 U/L (35-105) 07/13/24 20:08 Total Protein 7.7 g/dL (6.6-8.7) 07/13/24 20:08 Albumin 3.9 g/dL (3.5-5.2) 07/13/24 20: Globulin 3.8 g/dL (1.3-4.6) 07/13/24 20:08 Urine Color Yellow (Yellow) 07/13/24 21:03 Urine Appearance Clear (CLEAR) 07/13/24 21:03 Urine pH 5.0 (5-7) 07/13/24 21:03 Ur Specific [place] 1.012 (1.005-1.030) 07/13/24 21:03 Urine Protein Negative (Negative) 07/13/24 21:03 Urine Glucose (UA) Negative (Normal) 07/13/24 21:03 Urine Ketones Negative (Negative) 07/13/24 21:03 Urine Blood Negative (Negative) 07/13/24 21:03 Urine Nitrate Negative (Negative) 07/13/24 21:03 Urine Bilirubin Negative (Negative) 07/13/24 21:03 Urine Urobilinogen 0.2 mg/dL (Negative) 07/13/24 21:03 Ur Leukocyte Esterase Negative (Negative) 07/13/24 21:03 Urine RBC 0-2 /hpf (0-2) 07/13/24 21:03 Urine WBC 0-5 /hpf (0-5) 07/13/24 21:03 Ur Squamous Epith Cells 0-5 /hpf (0-5) 07/13/24 21:03 Amorphous Sediment Not Reportable 07/13/24 21:03 Urine Bacteria None seen /hpf (NONE) 07/13/24 21:03 Hyaline Casts 0.40 /lpf 07/13/24 21:03 All radiology interpretation(s) finalized by discharge Discharge Plan Discharge Patient Disposition: Home Clinical Impression: Left ankle sprain, Headache Condition: Stable Prescriptions: No Action fluticasone propionate [Flonase Allergy Relief] 50 mcg/actuation spray,suspension 2 spray intranasal DAILY PRN (Reason: Allergy Symptoms) Rx Instructions: administer into each nostril PNV 119-iron fum-folic acid 29 mg iron- 1 mg tablet 1 tab PO DAILY Qty: 30 5RF clonidine HCl 0.1 mg tablet 0.1 mg PO TID PRN (Reason: bp) Vascepa 1 gram capsule 1 g PO DAILY Qty: 90 3RF isosorbide mononitrate 60 mg tablet extended release 24 hr 60 mg PO QAM Qty: 100 3RF losartan 50 mg tablet 50 mg PO DAILY Qty: 180 3RF hydralazine 25 mg tablet 25 mg PO BID Qty: 60 1RF atorvastatin 20 mg tablet 20 mg PO BEDTIME loratadine 10 mg tablet 10 mg PO DAILY PRN (Reason: Allergy Symptoms) amiodarone [Pacerone] 200 mg Tablet 200 mg PO DAILY 30 Days Qty: 30 1RF meclizine 25 mg Tablet 25 mg PO TID PRN (Reason: Dizziness) Qty: 10 0RF buspirone 5 mg tablet 5 mg PO DAILY cholecalciferol (vitamin D3) 1,250 mcg (50,000 unit) capsule 50,000 unit PO Q7D Rx Instructions: Monday alprazolam 0.5 mg tablet 0.25 mg PO DAILY PRN (Reason: stress) Xarelto 20 mg tablet 20 mg PO QAM ofloxacin 0.3 % drops 4 drp otic (ear) BID hydrocortisone 2.5 % cream See Rx Instructions .ROUTE .COMPLEX Rx Instructions: APPLY TWICE DAILY TO RED/THICKENED RASH AND PLAQUES ON FACE NEEDED. NO MORE THAN TWO WEEKS PER MONTH. ketoconazole 2 % shampoo See Rx Instructions .ROUTE .COMPLEX PRN (Reason: SCALP IRRITATION) Rx Instructions: APPLY TOPICALLY TO THE AFFECTED AREA(S), LATHER, LEAVE FOR 5 MINUTES, THEN RINSE OFF ONCE DAILY NEEDED. donepezil 10 mg tablet 10 mg PO DAILY triamcinolone acetonide 0.1 % cream 1 applic TOPICAL BID PRN (Reason: Rash) Discharge Orders: Discharge ED (Routine); Ordered 07/13/24 Ordered By: Tor Heard Referrals: Bonnie Fleming FNP [Primary Care Provider] - Patient Instructions: Ankle Sprain (ED), Opioid Safety, Pain Management Activity Restrictions/Additional Instructions: Ice for pain and swelling to the ankle. Take Tylenol. Use the ankle stirrup for weightbearing for support. Return for any problems. This includes worsening headache, mental status changes, weakness, etc. Follow-up with your doctor. Print Language: Romanian Coding Level of Care Code ED Vascular Surgery Physician for Hakeem Sebastian
[2024-07-13 20:29] LABS: Alanine Aminotransferase 33 U/L (0-33); Albumin Level 3.9 g/dL (3.5-5.2); Alkaline Phosphatase 45 U/L (35-105); Anion Gap 15.9 (5-19); Aspartate Amino Transferase 32 U/L (0-32); Blood Urea Nitrogen 14 mg/dL (8-23); Calcium 9.7 mg/dL (8.5-10.5); Carbon Dioxide 26 mmol/L (22-29); Chloride 102 mmol/L (98-107); Creatinine Clr Calc Pharmacy 45.8113; Globulin 3.8 g/dL (1.3-4.6); Glucose 117 mg/dL (65-115); Osmolality Calculated 292 mOsm/kg (285-295); Potassium 3.9 mmol/L (3.5-5.1); Sodium 140 mmol/L (136-145); Total Bilirubin 0.6 mg/dL (0.15-1.2); Total Protein 7.7 g/dL (6.6-8.7)
[2024-07-13 20:31] VITALS: PULSE 78; RESP 18; O2SAT 96
--- NOTE | 2024-07-13 20:38 | ECG_ITS ---
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
[2024-07-13 21:09] LABS: Add Urine Microscopic? NO
[2024-07-13 21:11] LABS: Bilirubin Urine Negative (Negative); Blood Urine Negative (Negative); Glucose Urine UA Negative (Normal); Ketones Urine Negative (Negative); Leukocyte Esterase Urine Negative (Negative); Nitrate Urine Negative (Negative); Protein Urine Negative (Negative); Specific Gravity, Urine 1.012 (1.005-1.030); Urine Appearance Clear (CLEAR); Urine Color Yellow (Yellow); Urobilinogen Urine 0.2 mg/dL (Negative)
[2024-07-13 21:12] LABS: Charge for UA Resulting for Rev
[2024-07-13 21:14] LABS: Bacteria Urine None Seen /hpf; RBC Urine 0-2 /hpf (0-2); Squamous Epithelial Cell Urine 0-5 /hpf (0-5); WBC Urine 0-5 /hpf (0-5)
[2024-07-13 21:45] VITALS: BP 152/83; PULSE 77; O2SAT 95
== END 2024-07-13 21:48 | disposition home or self-care (01) ==
PROVIDERS: Emergency Provider Emergency Medicine; PCP Nurse Practitioner Family
DX: S93.402A Sprain of unspecified ligament of left ankle, initial encounter (principal); R51.9 Headache, unspecified; Z85.820 Personal history of malignant melanoma of skin; I25.10 Atherosclerotic heart disease of native coronary artery without angina pectoris; E78.5 Hyperlipidemia, unspecified; I10 Essential (primary) hypertension; W19.XXXA Unspecified fall, initial encounter
CPT/HCPCS: 36415; 70450; 73610; 80053; 81003; 85025; 93005; 99285

== ENCOUNTER 2024-08-14 18:11 | Emergency (ER) | payer MEDICARE, SELFPAY ==
--- NOTE | 2024-08-14 18:12 | XRR_ITS ---
PROCEDURE INFORMATION: Exam: XR Chest Exam date and time: 08/14/2024 6:48 PM Age: 79 years old Clinical indication: Pain; Chest pressure; Additional info: Cp TECHNIQUE: Imaging protocol: Radiologic exam of the chest. Views: 1 view. COMPARISON: CR (CHEST, ) 06/02/2024 10:33 AM FINDINGS: Lungs: Unremarkable. No consolidation. Pleural spaces: Unremarkable. No pleural effusion. No pneumothorax. Heart/Mediastinum: Unremarkable. No cardiomegaly. Bones/joints: Unremarkable. XR/XR chest 1V portable [id number] IMPRESSION: No acute findings.
--- NOTE | 2024-08-14 18:12 | ECG_ITS ---
[employer] Test Date: 2024-08-14 Pat Name: Kadi Hernandez Department: Room: Gender: Female [employer] Worker: : 1945 Requested By: Luann Zepeda Order Number: [id number] Al MD: Mandie Montano M.D. Measurements Intervals [place] Rate: 75 P: 0 CT: 0 QRS: 44 QRSD: 87 T: 12 QT: 396 QTc: 444 Interpretive Statements ATRIAL FIBRILLATION LOW QRS VOLTAGE IN PRECORDIAL LEADS [QRS DEFLECTION < 1.0 mV IN CHEST LEADS] NONSPECIFIC T-WAVE ABNORMALITY ABNORMAL RHYTHM ECG Compared to ECG 07/13/2024 20:38:23 Low QRS voltage now present T-wave abnormality now present Electronically Signed On 08-14-2024 21:28:13 CDT by Mandie Montano M.D. [email or web address]
[2024-08-14 18:14] VITALS: BP 169/71; PULSE 76; RESP 18; TEMP 36.6; O2SAT 94; BMI 36.6
[2024-08-14 18:24] VITALS: BP 165/74; PULSE 74; O2SAT 95
[2024-08-14 18:38] LABS: Basophils # 0.1 10^3/uL (0.0-0.1); Basophils % 0.8 %; Eosinophils # 0.2 10^3/uL (0.0-0.8); Eosinophils % 1.8 %; Hematocrit 39.1 % (36-47); Lymphocytes # 2.1 10^3/uL (0.8-4.8); Lymphocytes % 24.7 %; Mean Corpuscular HGB Conc 31.5 g/dL (30-55); Mean Corpuscular Hemoglobin 30.7 pg (27-33); Mean Corpuscular Volume 97.5 fl (85-98); Mean Platelet Volume 10.8 fL (7.4-10.4); Monocytes # 1.1 10^3/uL (0.2-0.9); Monocytes % 13.3 %; Neutrophils % 59.2 %; Nucleated Red Blood Cells % 0 %; Platelet Count 175 10^3/cmm (157-399); Red Blood Count 4.01 10^6/uL (3.85-5.65); White Blood Count 8.29 10^3/uL (3.29-11.43)
[2024-08-14] MEDS: LORazepam 2 mg/mL INJ 1 mL 0.5 MG IVP (18:48)
[2024-08-14 18:54] LABS: INR 1.79 (0.8-1.2)
[2024-08-14 19:03] LABS: Troponin(5th) Baseline 15 ng/L (0-10)
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
[2024-08-14 19:17] LABS: Alanine Aminotransferase 41 U/L (0-33); Albumin Level 4.2 g/dL (3.5-5.2); Alkaline Phosphatase 48 U/L (35-105); Anion Gap 19.4 (5-19); Aspartate Amino Transferase 41 U/L (0-32); Blood Urea Nitrogen 17 mg/dL (8-23); Calcium 9.8 mg/dL (8.5-10.5); Carbon Dioxide 25 mmol/L (22-29); Chloride 102 mmol/L (98-107); Creatinine Clr Calc Pharmacy 36.7532; Glucose 186 mg/dL (65-115); Lipase 47 U/L (13-60); Osmolality Calculated 300 mOsm/kg (285-295); Potassium 4.4 mmol/L (3.5-5.1); Sodium 142 mmol/L (136-145); Total Bilirubin 0.4 mg/dL (0.15-1.2); Total Protein 7.2 g/dL (6.6-8.7)
[2024-08-14 19:24] VITALS: BP 149/72; PULSE 70; RESP 20; O2SAT 93
[2024-08-14] MEDS: acetaminophen 500 mg Tablet 1000 MG PO (20:02)
--- NOTE | 2024-08-14 20:12 | ECG_ITS ---
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 Measurements Intervals [place] Rate: 68 P: 0 RI: 0 QRS: 29 QRSD: 87 T: 12 QT: 400 QTc: 427 Interpretive Statements ATRIAL FIBRILLATION LOW QRS VOLTAGE IN PRECORDIAL LEADS [QRS DEFLECTION < 1.0 mV IN CHEST LEADS] ABNORMAL RHYTHM ECG Compared to ECG 08/14/2024 18:18:29 T-wave abnormality no longer present Electronically Signed On 08-14-2024 21:29:12 CDT by Mandie Montano M.D. [id number]
[2024-08-14 20:30] VITALS: BP 150/91; PULSE 68; RESP 23; O2SAT 94
[2024-08-14 20:31] LABS: Troponin 5 2HR 15.08 ng/L (0-10); Troponin 5 2HR Delta 0.08 ABS# (0-10)
[2024-08-14 21:57] VITALS: BP 158/85; PULSE 69; O2SAT 94
== END 2024-08-14 22:00 | disposition home or self-care (01) ==
PROVIDERS: Emergency Medicine; Emergency Provider Emergency Medicine; PCP Nurse Practitioner Family
DX: F41.9 Anxiety disorder, unspecified (principal); R07.9 Chest pain, unspecified; Z85.820 Personal history of malignant melanoma of skin
CPT/HCPCS: 36415; 71045; 80053; 83690; 84484; 85025; 85610; 93005; 96374; 99285; J2060; J9999

== ENCOUNTER → 2024-08-23 10:36 | Outpatient (BNVA) | payer MEDICARE, SELFPAY | PROVIDERS: PCP Nurse Practitioner Family; Visit Provider Internal Medicine | DX: Z45.09 Encounter for adjustment and management of other cardiac device (principal); R42 Dizziness and giddiness; R00.2 Palpitations; Z45.018 Encounter for adjustment and management of other part of cardiac pacemaker | CPT/HCPCS: 93291 ==

== ENCOUNTER 2024-09-07 10:12 | Emergency (ER) | payer MEDICARE, SELFPAY ==
[2024-09-07] VITALS (7 sets, daily range): BP systolic 161–194; BP diastolic 78–90; PULSE 58–77; RESP 16–18; TEMP 36.6; O2SAT 93–96; BMI 42.0
--- NOTE | 2024-09-07 10:36 | CTR_ITS ---
PROCEDURE INFORMATION: Exam: CT Head Without Contrast Exam date and time: 09/07/2024 10:58 AM Age: 79 years old Clinical indication: Dizziness TECHNIQUE: Imaging protocol: Computed tomography of the head without contrast. Radiation optimization: All CT scans at this facility use at least one of these dose optimization techniques: automated exposure control; mA and/or kV adjustment per patient size (includes targeted exams where dose is matched to clinical indication); or iterative reconstruction. COMPARISON: CT head wo con* [id number] 07/13/2024 7:32 PM RADIATION DOSE METRICS: Total DLP (mGy-cm): 846.48 FINDINGS: Brain: Mild nonspecific white matter low attenuation which may be related to microvascular ischemic changes. No acute confluent lobar ischemic infarct. No acute intracranial hemorrhage. Cerebral ventricles: The ventricles and sulci are prominent in size compatible with moderate atrophy. Paranasal sinuses: No fluid levels. Mastoid air cells: Visualized mastoid air cells are well aerated. Bones: No acute calvarial fracture. Soft tissues: Visualized soft tissues are unremarkable. CT/CT head wo con* [id number] IMPRESSION: No acute intracranial abnormality. If symptoms persist, consider further evaluation with MRI, if there are no contraindications to obtaining a MRI scan.
[2024-09-07] MEDS: sodium chloride 0.9% 500 ML IV (10:41)
[2024-09-07 10:56] LABS: Basophils # 0.1 10^3/uL (0.0-0.1); Basophils % 1.2 %; Eosinophils # 0.2 10^3/uL (0.0-0.8); Hematocrit 41.1 % (36-47); Lymphocytes # 1.6 10^3/uL (0.8-4.8); Lymphocytes % 23.6 %; Mean Corpuscular HGB Conc 30.4 g/dL (30-55); Mean Corpuscular Hemoglobin 30.7 pg (27-33); Mean Platelet Volume 11.2 fL (7.4-10.4); Monocytes # 0.6 10^3/uL (0.2-0.9); Monocytes % 9.7 %; Nucleated Red Blood Cells % 0 %; Platelet Count 215 10^3/cmm (157-399); Red Blood Count 4.07 10^6/uL (3.85-5.65); Red Cell Distribution Width 14.1 % (12.1-15.1); White Blood Count 6.61 10^3/uL (3.29-11.43)
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
[2024-09-07 11:16] LABS: Alanine Aminotransferase 40 U/L (0-33); Alkaline Phosphatase 44 U/L (35-105); Aspartate Amino Transferase 52 U/L (0-32); Blood Urea Nitrogen 16 mg/dL (8-23); Carbon Dioxide 26 mmol/L (22-29); Chloride 103 mmol/L (98-107); Creatinine Clr Calc Pharmacy 51.6991; Glucose 189 mg/dL (65-115); Magnesium 1.6 mg/dL (1.7-2.3); Osmolality Calculated 300 mOsm/kg (285-295); Sodium 142 mmol/L (136-145); Total Bilirubin 0.6 mg/dL (0.15-1.2)
[2024-09-07 13:05] LABS: Add Urine Microscopic? YES; Bilirubin Urine Neg (Negative); Blood Urine Neg (Negative); Glucose Urine UA Norm (Normal); Ketones Urine Negative (Negative); Leukocyte Esterase Urine 2+ (Negative); Nitrate Urine Negative (Negative); Protein Urine Trace (Negative); Specific Gravity, Urine 1.018 (1.005-1.030); Urine Appearance Slightly Cloudy (CLEAR); Urine Color Yellow (Yellow); Urobilinogen Urine Norm (Negative)
[2024-09-07 13:06] LABS: Add Urine Culture? No; RBC Urine 0-2 /hpf (0-2); WBC Urine 21-50 /hpf (0-5)
--- NOTE | 2024-09-07 15:37 | ECG_ITS ---
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 Measurements Intervals [place] Rate: 77 P: 78 NC: 152 QRS: 47 QRSD: 85 T: 5 QT: 382 QTc: 434 Interpretive Statements SINUS RHYTHM LOW QRS VOLTAGE IN PRECORDIAL LEADS [QRS DEFLECTION < 1.0 mV IN CHEST LEADS] Compared to ECG 08/14/2024 20:07:04 Atrial fibrillation no longer present Electronically Signed On 09-09-2024 10:25:03 CDT by Julian Pitts M.D. [id number]
== END 2024-09-07 14:13 | disposition home or self-care (01) ==
PROVIDERS: Emergency Provider Student in an Organized Health Care Education/Training Program; PCP Nurse Practitioner Family
DX: N30.00 Acute cystitis without hematuria (principal); R42 Dizziness and giddiness; F43.22 Adjustment disorder with anxiety; E78.5 Hyperlipidemia, unspecified; I10 Essential (primary) hypertension; I25.10 Atherosclerotic heart disease of native coronary artery without angina pectoris
CPT/HCPCS: 36415; 70450; 80053; 81001; 83735; 85025; 93005; 96360; 96361; 99284; J7040

== ENCOUNTER 2024-09-16 00:40 | Emergency (ER) | payer MEDICARE, SELFPAY ==
[2024-09-16 00:44] VITALS: BP 172/86; PULSE 68; RESP 18; TEMP 36.7; O2SAT 96
[2024-09-16 01:55] LABS: Basophils # 0.1 10^3/uL (0.0-0.1); Eosinophils # 0.3 10^3/uL (0.0-0.8); Eosinophils % 3.1 %; Hematocrit 40.7 % (36-47); Lymphocytes # 2.2 10^3/uL (0.8-4.8); Lymphocytes % 26.5 %; Mean Corpuscular HGB Conc 30.7 g/dL (30-55); Mean Corpuscular Hemoglobin 30.3 pg (27-33); Mean Corpuscular Volume 98.5 fl (85-98); Mean Platelet Volume 11.2 fL (7.4-10.4); Monocytes # 0.9 10^3/uL (0.2-0.9); Monocytes % 11.4 %; Neutrophils % 57.6 %; Nucleated Red Blood Cells % 0 %; Platelet Count 228 10^3/cmm (157-399); Red Blood Count 4.13 10^6/uL (3.85-5.65); Red Cell Distribution Width 13.9 % (12.1-15.1); White Blood Count 8.15 10^3/uL (3.29-11.43)
[2024-09-16 02:15] LABS: Alanine Aminotransferase 38 U/L (0-33); Albumin Level 3.9 g/dL (3.5-5.2); Alkaline Phosphatase 50 U/L (35-105); Anion Gap 19.3 (5-19); Aspartate Amino Transferase 43 U/L (0-32); Blood Urea Nitrogen 17 mg/dL (8-23); Calcium 9.8 mg/dL (8.5-10.5); Carbon Dioxide 25 mmol/L (22-29); Chloride 104 mmol/L (98-107); Creatinine Clr Calc Pharmacy 43.0825; Glucose 151 mg/dL (65-115); Osmolality Calculated 302 mOsm/kg (285-295); Potassium 4.3 mmol/L (3.5-5.1); Sodium 144 mmol/L (136-145); Total Bilirubin 0.3 mg/dL (0.15-1.2); Total Protein 7.9 g/dL (6.6-8.7)
--- NOTE | 2024-09-16 03:36 | CTR_ITS ---
PROCEDURE INFORMATION: Exam: CT Head Without Contrast Exam date and time: 09/16/2024 4:05 AM Age: 79 years old Clinical indication: C/O dizziness. History of parkinson's. ; Additional info: Dizzy TECHNIQUE: Imaging protocol: Computed tomography of the head without contrast. Radiation optimization: All CT scans at this facility use at least one of these dose optimization techniques: automated exposure control; mA and/or kV adjustment per patient size (includes targeted exams where dose is matched to clinical indication); or iterative reconstruction. COMPARISON: CT head wo con* [id number] 09/07/2024 10:58 AM RADIATION DOSE METRICS: Total DLP (mGy-cm): 1110.14 FINDINGS: Brain: There is mild small vessel disease. There is no evidence of acute parenchymal hemorrhage, extra-axial collection, or acute infarction. There is no mass effect, midline shift, or downward herniation. Cerebral ventricles: No ventriculomegaly. Paranasal sinuses: Visualized sinuses are unremarkable. No fluid levels. Mastoid air cells: Visualized mastoid air cells are well aerated. Bones: Unremarkable. No acute fracture. Soft tissues: Unremarkable. CT/CT head wo con* [id number] IMPRESSION: Mild small vessel disease. No evidence of acute intracranial process.
--- NOTE | 2024-09-16 03:55 | ECG_ITS ---
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 Measurements Intervals [place] Rate: 61 P: 0 NV: 0 QRS: 37 QRSD: 87 T: 31 QT: 427 QTc: 433 Interpretive Statements Possible sinus rhythm with electrical artifact LOW QRS VOLTAGE IN PRECORDIAL LEADS [QRS DEFLECTION < 1.0 mV IN CHEST LEADS] SEPTAL MYOCARDIAL INFARCTION , PROBABLY OLD [40+ ms Q WAVE IN V1/V2] Compared to ECG 09/07/2024 10:24:08 Supraventricular rhythm now present Myocardial infarct finding now present Sinus rhythm no longer present Electronically Signed On 09-16-2024 15:06:29 CDT by Mandie Montano M.D. [email or web address]
[2024-09-16 04:02] VITALS: BP 178/102; PULSE 60; RESP 16; O2SAT 95
--- NOTE | 2024-09-16 04:04 | W.ED.DIZZY ---
HPI - Dizziness General: Chief Complaint: Dizziness Stated Complaint: Dizzy\Shaking Possible UTI\ Time Seen by Provider: 09/16/24 03:29 History of Present Illness: HPI Narrative: Consent is in. She presents with increased tremor, generalized weakness, and vertiginous type dizziness. She has noticed this the past couple of days. She has been nauseated. No vomiting. No fever. She has not taken her blood pressure. She denies any chest pain. No other neurological problems such as problems with speech language vision, etc. Related Data Home Medications ?Medication ?Instructions ?Recorded ?Confirmed fluticasone propionate 50 2 spray intranasal DAILY PRN 09/15/21 09/07/24 mcg/actuation nasal Allergy Symptoms spray,suspension (Flonase Allergy Relief) atorvastatin 20 mg tablet 20 mg PO BEDTIME 07/29/23 09/07/24 donepezil 10 mg tablet 10 mg PO DAILY 11/02/23 09/07/24 buspirone 5 mg tablet 5 mg PO DAILY 04/21/24 09/07/24 cholecalciferol (vitamin D3) 1,250 50,000 unit PO Q7D 04/21/24 09/07/24 mcg (50,000 unit) capsule rivaroxaban 20 mg tablet (Xarelto) 20 mg PO QAM 06/02/24 09/07/24 albuterol sulfate 90 mcg/actuation 2 puff inhalation Q6H 09/07/24 09/07/24 aerosol inhaler (Ventolin HFA) amiodarone 200 mg tablet 200 mg PO DAILY 09/07/24 09/07/24 budesonide-formoterol HFA 160 2 puff inhalation BID 09/07/24 09/07/24 mcg-4.5 mcg/actuation aerosol inhaler (Symbicort) carbidopa 25 mg-levodopa 100 mg 1 tab PO TID 09/07/24 09/07/24 tablet icosapent ethyl 1 gram capsule 1 g PO DAILY 09/07/24 09/07/24 (Vascepa) vitamin with calcium 1 tab PO DAILY 09/07/24 09/07/24 no.72-iron 27 mg-folic acid 1 mg tablet ( Vitamins Plus Low Iron) propranolol 20 mg tablet 30 mg PO DAILY 09/07/24 09/07/24 Previous Rx's ?Medication ?Instructions ?Recorded isosorbide mononitrate 60 mg 60 mg PO QAM #100 tabs 05/13/24 tablet,extended release 24 hr losartan 50 mg tablet 50 mg PO DAILY #180 tabs 06/03/24 hydralazine 25 mg tablet 25 mg PO BID #180 tabs 08/16/24 cefdinir 300 mg capsule 300 mg PO BID #14 caps 09/16/24 meclizine 12.5 mg tablet 12.5 mg PO TID PRN dizziness #20 09/16/24 tabs alprazolam 0.5 mg tablet 0.5 mg PO BID PRN stress 30 days 09/17/24 #60 tabs Allergies Allergy/AdvReac Type Severity Reaction Status Date / Time lisinopril Allergy coughing Verified 09/16/24 00:54 PFSH ED PFSH: Medical History Reactive airway disease Memory loss UTI (urinary tract infection) Benign positional vertigo Benign hypertension Atrial fibrillation with rapid ventricular response Hypertriglyceridemia Exertional shortness of breath Hypertensive urgency Hypertension Generalized weakness Chest pain UTI (urinary tract infection) Bradycardia CAD (coronary artery disease) Dizziness Atrial fibrillation Essential tremor Generalized weakness Lactic acidosis Acute metabolic encephalopathy Sepsis Atrial fibrillation Urinary tract infection Elevated blood pressure reading Palpitation HTN (hypertension) Gout Dyslipidemia Melanoma Surgical History Hx of cataract extraction History of cholecystectomy Status post laparoscopic cholecystectomy (03/30/20) History of removal of ovarian cyst History of carpal tunnel release S/P complete hysterectomy H/O esophagogastroduodenoscopy 1977 H/O colonoscopy 2016 Family History Mother Melanoma Diabetes Stroke Father CAD (coronary artery disease) unknown age of onset, CA at 62 Cancer Family/Other Cancer Grandmother Cancer Brother Diabetes Denies family history of Clotting disorder Dementia Chronic kidney disease (CKD) Suicide Anesthesia complication Bleeding disorder Lung disease Social History Smoking and tobacco/nicotine status: never used tobacco/nicotine Alcohol intake: never Substance/Drug Use: never Household members: spouse Marital status: Current occupational status: retired Physical Exam Const: COMMON NORMALS: no acute distress and alert GENERAL APPEARANCE: cooperative; not ill appearing and not frail appearing ORIENTATION/CONSCIOUSNESS: Yes oriented to person, Yes oriented to place and Yes oriented to time HENMT: COMMON NORMALS: normocephalic, atraumatic and Normal external nose present HEAD & SCALP: normocephalic and atraumatic FACE & SINUS: normal facial exam and face symmetric NOSE: Normal external nose present Eye: COMMON NORMALS: Equal, round and reactive pupils present and EOMs intact bilaterally PUPIL: Yes Equal, round and reactive pupils present Neck/C-Spine: GENERAL: Yes trachea midline Chest: CHEST: Yes Symmetrical chest wall rise Resp: COMMON NORMALS: normal respiratory effort, No retractions, No use of accessory muscles and clear to auscultation bilaterally AUSCULTATION: clear to auscultation bilaterally Cardio: COMMON NORMALS: regular rate and regular rhythm RATE: regular rate RHYTHM: regular rhythm GI: COMMON NORMALS: Normal to inspection, nondistended, normoactive bowel sounds present Extremity: COMMON NORMALS: no pedal edema Neuro: JAYESH COMA SCALE: document GCS findings Jayesh coma scale eye opening: Spontaneous [place] coma scale verbal response: Orientated [place] coma scale motor response: Obey commands [place] coma scale total score: 15 SENSORIUM/ORIENTATION: Yes alert, Yes oriented to person, Yes oriented to place and Yes oriented to time COORDINATION/BALANCE: [id number] test normal and ulbs-ki-zhin test normal SPEECH: speech normal GAIT: Yes Normal gait present SENSORY EXAM: Yes extremities (intact) MOTOR EXAM: Tremors during motor activity present COORDINATION: mbehff-yp-lymj test normal and hodm-wg-eukb test normal Psych: COMMON NORMALS: speech normal SPEECH: Yes normal speech Skin: COMMON NORMALS: no rashes or lesions noted GENERAL SKIN EXAM: no rashes or lesions noted Course Vital Signs: Vital signs: Vital Signs Temperature 98.1 F 09/16/24 00:44 Pulse Rate 59 L 09/16/24 06:13 Respiratory Rate 16 09/16/24 06:13 Blood Pressure 177/93 09/16/24 06:13 Pulse Oximetry 92 09/16/24 06:13 Oxygen Delivery Me thod Room Air 09/16/24 05:03 [facility] - Dizziness Medical Decision Making Patient is hypertensive. Laboratory is quite stable. Urinalysis is pending. Head CT is pending. Head CT is negative for acute change. Urinalysis shows significant urinary tract infection. This will be treated. It has been a cause of her symptoms in the past as per her . Intravenous rocephin here followed by cefdinir as an outpatient. to return for worsening symptoms. Lab Data 09/16/24 01:42 09/16/24 01:[address] 09/16/24 03:36 IMPRESSION: Mild small vessel disease. No evidence of acute intracranial process. Laboratory Results WBC 8.15 10^3/uL (3.29-11.43) 09/16/24 01:42 RBC 4.13 10^6/uL (3.85-5.65) 09/16/24 01:42 Hgb 12.50 g/dL (11.27-16.99) 09/16/24 01:42 Hct 40.7 % (36-47) 09/16/24 01:42 MCV 98.5 fl (85-98) H 09/16/24 01:42 MCH 30.3 pg (27-33) 09/16/24 01:42 MCHC 30.7 g/dL (30-55) 09/16/24 01:42 RDW 13.9 % (12.1-15.1) 09/16/24 01:42 Plt Count 228 10^3/cmm (157-399) 09/16/24 01:42 MPV 11.2 fL (7.4-10.4) H 09/16/24 01:42 Neut % (Auto) 57.6 % 09/16/24 01:42 Lymph % (Auto) 26.5 % 09/16/24 01:42 Alfalfa % (Auto) 11.4 % 09/16/24 01:42 Eos % (Auto) 3.1 % 09/16/24 01:42 Baso % (Auto) 1.0 % 09/16/24 01:42 Neut # (Auto) 4.70 10^3/uL (1.8-7.7) 09/16/24 01:42 Lymph # (Auto) 2.2 10^3/uL (0.8-4.8) 09/16/24 01:42 Alfalfa # (Auto) 0.9 10^3/uL (0.2-0.9) 09/16/24 01:42 Eos # (Auto) 0.3 10^3/uL (0.0-0.8) 09/16/24 01:42 Baso # (Auto) 0.1 10^3/uL (0.0-0.1) 09/16/24 01:42 Nucleated RBC % (auto) 0 % 09/16/24 01:42 Nucleated RBCs # 0.0 /100WBC 09/16/24 01:42 Sodium 144 mmol/L (136-145) 09/16/24 01:42 Potassium 4.3 mmol/L (3.5-5.1) 09/16/24 01:42 Chloride 104 mmol/L (98-107) 09/16/24 01:42 Carbon Dioxide 25 mmol/L (22-29) 09/16/24 01:42 Anion Gap 19.3 (5-19) H 09/16/24 01:42 BUN 17 mg/dL (8-23) 09/16/24 01:42 Creatinine 1.2 mg/dL (0.5-0.9) H 09/16/24 01:42 GFR Calculation Not Reportable 09/16/24 01:42 Glucose 151 mg/dL (65-115) H 09/16/24 01:42 Calculated Osmolality 302 mOsm/kg (285-295) H 09/16/24 01:42 Calcium 9.8 mg/dL (8.5-10.5) 09/16/24 01:42 Total Bilirubin 0.3 mg/dL (0.15-1.2) 09/16/24 01:42 AST 43 U/L (0-32) H 09/16/24 01:42 ALT 38 U/L (0-33) H 09/16/24 01:42 Alkaline Phosphatase 50 U/L (35-105) 09/16/24 01:42 Total Protein 7.9 g/dL (6.6-8.7) 09/16/24 01:42 Albumin 3.9 g/dL (3.5-5.2) 09/16/24 01:42 Globulin 4.0 g/dL (1.3-4.6) 09/16/24 01:42 Urine Color Yellow (Yellow) 09/16/24 04:01 Urine Appearance Clear (CLEAR) 09/16/24 04:01 Urine pH 5.0 (5-7) 09/16/24 04:01 Ur Specific [place] 1.018 (1.005-1.030) 09/16/24 04:01 Urine Protein 1+ (Negative) A 09/16/24 04:01 Urine Glucose (UA) Negative (Normal) 09/16/24 04:01 Urine Ketones Negative (Negative) 09/16/24 04:01 Urine Blood Negative (Negative) 09/16/24 04:01 Urine Nitrate Negative (Negative) 09/16/24 04:01 Urine Bilirubin Negative (Negative) 09/16/24 04:01 Urine Urobilinogen 1.0 mg/dL (Negative) 09/16/24 04:01 Ur Leukocyte Esterase 2+ (Negative) A 09/16/24 04:01 Urine RBC 0-2 /hpf (0-2) 09/16/24 04:01 Urine WBC 51-100 /hpf (0-5) H 09/16/24 04:01 Ur Squamous Epith Cells 6-10 /hpf (0-5) 09/16/24 04:01 Amorphous Sediment Not Reportable 09/16/24 04:01 Urine Bacteria None seen /hpf (NONE) 09/16/24 04:01 Hyaline Casts 0.40 /lpf 09/16/24 04:01 All radiology interpretation(s) finalized by discharge Discharge Plan Discharge Patient Disposition: Home Clinical Impression: Vertigo, Acute UTI Condition: Stable Prescriptions: New cefdinir 300 mg capsule 300 mg PO BID Qty: 14 0RF meclizine 12.5 mg tablet 12.5 mg PO TID PRN (Reason: dizziness) Qty: 20 0RF No Action fluticasone propionate [Flonase Allergy Relief] 50 mcg/actuation spray,suspension 2 spray intranasal DAILY PRN (Reason: Allergy Symptoms) Rx Instructions: administer into each nostril isosorbide mononitrate 60 mg tablet extended release 24 hr 60 mg PO QAM Qty: 100 3RF losartan 50 mg tablet 50 mg PO DAILY Qty: 180 3RF hydralazine 25 mg tablet 25 mg PO BID Qty: 180 2RF alprazolam 0.5 mg tablet 0.5 mg PO BID PRN (Reason: stress) 30 Days Qty: 60 3RF atorvastatin 20 mg tablet 20 mg PO BEDTIME buspirone 5 mg tablet 5 mg PO DAILY cholecalciferol (vitamin D3) 1,250 mcg (50,000 unit) capsule 50,000 unit PO Q7D Rx Instructions: Monday Xarelto 20 mg tablet 20 mg PO QAM albuterol sulfate [Ventolin HFA] 90 mcg/actuation HFA aerosol inhaler 2 puff INHALATION Q6H propranolol 20 mg tablet 30 mg PO DAILY Rx Instructions: take 1 and 1/2 tablet by mouth daily carbidopa-levodopa 25-100 mg tablet 1 tab PO TID budesonide-formoterol [Symbicort] 160-4.5 mcg/actuation HFA aerosol inhaler 2 puff INHALATION BID Vitamin Plus Low Iron 27 mg iron- 1 mg tablet 1 tab PO DAILY amiodarone 200 mg tablet 200 mg PO DAILY Rx Instructions: TAKE 1 TABLET BY MOUTH EVERY DAY icosapent ethyl [Vascepa] 1 gram capsule 1 g PO DAILY Rx Instructions: take 1 capsule BY MOUTH EVERY DAY donepezil 10 mg tablet 10 mg PO DAILY Discharge Orders: Discharge ED (Routine); Ordered 09/16/24 Ordered By: Tor Heard Referrals: Bonnie Fleming FNP [Primary Care Provider, Unknown] - 1-3 days Patient Instructions: Vertigo (ED), Urinary Tract Infection in Older Adults (ED), Opioid Safety, Pain Management Activity Restrictions/Additional Instructions: Return for fever despite 2-3 more doses of antibiotics, vomiting liquids or medications, worsening dizziness despite treatment, other concerning symptoms. You may take medication as needed for dizziness until dizziness resolves. Print Language: Pashto Coding Level of Care Code ED Extrusion Die Corrector for Hakeem Sebastian
[2024-09-16 04:15] LABS: Bilirubin Urine Negative (Negative); Blood Urine Negative (Negative); Glucose Urine UA Negative (Normal); Ketones Urine Negative (Negative); Leukocyte Esterase Urine 2+ (Negative); Nitrate Urine Negative (Negative); Protein Urine 1+ (Negative); Specific Gravity, Urine 1.018 (1.005-1.030); Urine Appearance Clear (CLEAR); Urine Color Yellow (Yellow)
[2024-09-16 04:19] LABS: Add Urine Microscopic? YES; Bacteria Urine None Seen /hpf; RBC Urine 0-2 /hpf (0-2); WBC Urine 51-100 /hpf (0-5)
[2024-09-16 04:24] LABS: Add Urine Culture? Yes
[2024-09-16 04:29] VITALS: BP 172/87; PULSE 59; O2SAT 94
[2024-09-16] MEDS: LORazepam 1 MG/0.5 ML injection (04:30)
[2024-09-16 05:03] VITALS: BP 164/82; PULSE 61; RESP 18; O2SAT 95
[2024-09-16] MEDS: cefTRIAXone 1,000 mg SDV 1000 MG IVP (05:04)
[2024-09-16 06:13] VITALS: BP 177/93; PULSE 59; RESP 16; O2SAT 92
== END 2024-09-16 05:49 | disposition home or self-care (01) ==
PROVIDERS: Emergency Provider Emergency Medicine; PCP Nurse Practitioner Family
DX: R42 Dizziness and giddiness (principal); N39.0 Urinary tract infection, site not specified; Z85.820 Personal history of malignant melanoma of skin; I25.10 Atherosclerotic heart disease of native coronary artery without angina pectoris; E78.5 Hyperlipidemia, unspecified; I10 Essential (primary) hypertension
CPT/HCPCS: 36415; 70450; 80053; 81001; 85025; 87086; 93005; 96374; 99285; J0696; J2060

== ENCOUNTER → 2024-10-01 14:35 | Outpatient (BNVA) | payer MEDICARE, SELFPAY | PROVIDERS: PCP Nurse Practitioner Family; Visit Provider Psychiatry & Neurology Neurology | DX: G25.0 Essential tremor (principal) | CPT/HCPCS: 99212 ==

== ENCOUNTER → 2024-10-07 12:45 | Outpatient (BNVA) | payer MEDICARE, SELFPAY | PROVIDERS: PCP Nurse Practitioner Family; Visit Provider Internal Medicine | DX: I48.20 Chronic atrial fibrillation, unspecified (principal); Z79.01 Long term (current) use of anticoagulants; E78.5 Hyperlipidemia, unspecified; I10 Essential (primary) hypertension; I25.10 Atherosclerotic heart disease of native coronary artery without angina pectoris; R00.1 Bradycardia, unspecified; E78.1 Pure hyperglyceridemia; G25.0 Essential tremor; Z95.818 Presence of other cardiac implants and grafts | CPT/HCPCS: 99214 ==

== ENCOUNTER → 2024-11-11 10:49 | Outpatient (BNVA) | payer MEDICARE, SELFPAY | PROVIDERS: PCP Nurse Practitioner Family; Visit Provider Nurse Practitioner Family | DX: L40.8 Other psoriasis (principal); K13.0 Diseases of lips; F42.4 Excoriation (skin-picking) disorder; Z85.820 Personal history of malignant melanoma of skin; Z08 Encounter for follow-up examination after completed treatment for malignant neoplasm; Z85.828 Personal history of other malignant neoplasm of skin | CPT/HCPCS: 99214 ==

== ENCOUNTER 2025-01-23 18:19 | Observation (INO) | payer MEDICARE, SELFPAY ==
[2025-01-23 18:22] VITALS: BP 164/66; PULSE 77; TEMP 36.7; O2SAT 96
--- NOTE | 2025-01-23 18:22 | ECG_ITS ---
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 Measurements Intervals [place] Rate: 77 P: 70 DC: 143 QRS: 19 QRSD: 89 T: 16 QT: 382 QTc: 434 Interpretive Statements SINUS RHYTHM LOW QRS VOLTAGE IN PRECORDIAL LEADS [QRS DEFLECTION < 1.0 mV IN CHEST LEADS] POSSIBLE ANTERIOR MYOCARDIAL INFARCTION , PROBABLY OLD [30 ms Q WAVE IN V3/V4, OR R < 0.2 mV IN V4] Compared to ECG 09/16/2024 03:55:09 No significant changes Electronically Signed On 01-25-2025 20:24:56 CDT by Mandie Montano M.D. [id number]
--- OUTSIDE RECORDS SUMMARY | 2025-01-23 18:31 | XMS_ITS | Encounter Summary ---
Author Organization [facility] Address [address] [place] [address] Care Team Providers Care Ash Conveyor Operator Name Role Phone Unavailable Primary Care Provider Unavailabl e Encounter Details Date Type Department Care Team (Late st Contact Info) Description 07/24/2003 [facility]patient [facility] [address] [place] [phone] Benny Asif DO [address] [place] [phone] ABN INVOLUN MOVEMENT NEC (Primary Dx); HEADACHE; Pure hypercholesterolem; CONJUNCTIVITIS NOS Social History Tobacco Use Types Packs/Day Years Used Date Smoking Tobacco: Never Assessed Comments Unknown Sex and Gender Information Value Date Recorded Sex Assigned at Not on file 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
--- OUTSIDE RECORDS SUMMARY | 2025-01-23 18:31 | XMS_ITS | Encounter Summary ---
Author Organization [facility] Address [address] [place] [address] Care Team Providers Care Implementation Lead Name Role Phone Unavailable Primary Care Provider Unavailabl e Encounter Details Date Type Department Care Team (Late st Contact Info) Description 04/10/2003 Outpatient Historical [facility] [address] [place] [phone] Benny Asif DO [address] [place] [phone] Routine medical exam (Primary Dx); ABN INVOLUN MOVEMENT NEC; SYMPTOMATIC FEMALE CLIMACTERIC STATE; OBESITY NOS Social History Tobacco Use Types Packs/Day Years Used Date Smoking Tobacco: Never Assessed Comments Unknown Sex and Gender Information Value Date Recorded Sex Assigned at Not on file 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
--- OUTSIDE RECORDS SUMMARY | 2025-01-23 18:31 | XMS_ITS | Encounter Summary ---
Author Organization [facility] Address [address] [place] [address] Care Team Providers Care Extractions Technologist Name Role Phone Unavailable Primary Care Provider Unavailabl e Encounter Details Date Type Department Care Team (Late st Contact Info) Description 08/01/2005 Outpatient [facility] [address] [place] [address] Social History Tobacco Use Types Packs/Day Years Used Date Smoking Tobacco: Never Assessed Comments Unknown Sex and Gender Information Value Date Recorded Sex Assigned at Not on file 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
--- OUTSIDE RECORDS SUMMARY | 2025-01-23 18:31 | XMS_ITS | Encounter Summary ---
Author Organization [facility] Address [address] [place] [address] Care Team Providers Care Grocery Supervisor Name Role Phone Unavailable Primary Care Provider Unavailabl e Encounter Details Date Type Department Care Team (Late st Contact Info) Description 05/24/2006 [facility] [address] [place] [phone] Benny Asif DO [address] [place] [phone] Routine Medical Exam (Primary Dx); Abnormal Involuntary Movements; Pure Hypercholesterolem; Vaccine for influenza Social History Tobacco Use Types Packs/Day Years Used Date Smoking Tobacco: Never Assessed Comments Unknown Sex and Gender Information Value Date Recorded Sex Assigned at Not on file Legal 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
--- OUTSIDE RECORDS SUMMARY | 2025-01-23 18:31 | XMS_ITS | Clinical Summary ---
Author Organization [facility] Address [address] [place]: Epic Prelude ADT [place] [address] Care Team Providers Care Pharmacy Informatics Manager Name Role Phone Unavailable Primary Care Provider Unavailabl e Immunizations Immunization Administration Dates Next Due (PNEUMOVAX 23)(50 YRS UP) PN EUMOCOCCAL POLYSACCHARIDE (PPV23) 0.5 ML, IM 05/08/2002,05/08/1996 Hepatitis A Vaccine 07/02/2003 Hepatitis B Vaccine 07/02/2003,01/03/2003,2002 Influenza Seasonal Unspecifi ed Formulation IM 05/24/2006 Social History Tobacco Use Types Packs/Day Years Used Date Smoking Tobacco: Never Assessed Comments Unknown Sex and Gender Information Value Date Recorded Sex Assigned at Not on file 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
--- NOTE | 2025-01-23 19:35 | XRR_ITS ---
PROCEDURE INFORMATION: Exam: XR Chest Exam date and time: 01/23/2025 7:39 PM Age: 79 years old Clinical indication: Other: Syncope TECHNIQUE: Imaging protocol: Radiologic exam of the chest. Views: 1 view. COMPARISON: CR (CHEST, ) 08/14/2024 6:48 PM FINDINGS: Lungs: Unremarkable. No consolidation. Pleural spaces: Unremarkable. No pleural effusion. No pneumothorax. Heart/Mediastinum: Query mild cardiomegaly. Bones/joints: Mild degenerative changes of the AC joints. XR/XR chest 1V portable [id number] IMPRESSION: No acute findings.
[2025-01-23 20:01] VITALS: BP 172/94; PULSE 74; RESP 21; O2SAT 91
--- NOTE | 2025-01-23 20:19 | CTR_ITS ---
PROCEDURE INFORMATION: Exam: CT Head Without Contrast Exam date and time: 01/23/2025 8:32 PM Age: 79 years old Clinical indication: Altered mental status/memory loss; Additional info: AMS uncertain etiology TECHNIQUE: Imaging protocol: Computed tomography of the head without contrast. Radiation optimization: All CT scans at this facility use at least one of these dose optimization techniques: automated exposure control; mA and/or kV adjustment per patient size (includes targeted exams where dose is matched to clinical indication); or iterative reconstruction. COMPARISON: CT head wo con* [id number] 09/16/2024 4:05 AM RADIATION DOSE METRICS: Total DLP (mGy-cm): 776.188 FINDINGS: Brain: Mild chronic small-vessel ischemic change. Cerebral ventricles: [id number] involutional changes of the ventricles and sulci. Paranasal sinuses: Visualized sinuses are unremarkable. No fluid levels. Mastoid air cells: Visualized mastoid air cells are well aerated. Bones: Unremarkable. No acute fracture. Soft tissues: Unremarkable. CT/CT head wo con* [id number] IMPRESSION: No definite acute intracranial abnormality.
[2025-01-23 20:38] LABS: Hematocrit 40.7 % (36-47); Hemoglobin 12.40 g/dL (11.27-16.99); Mean Corpuscular HGB Conc 30.5 g/dL (30-55); Mean Corpuscular Hemoglobin 28.5 pg (27-33); Mean Corpuscular Volume 93.6 fl (85-98); Nucleated Red Blood Cells % 0 %; Platelet Count 239 10^3/cmm (157-399); Red Blood Count 4.35 10^6/uL (3.85-5.65); White Blood Count 10.71 10^3/uL (3.29-11.43)
[2025-01-23 20:59] LABS: Troponin(5th) Baseline 13 ng/L (0-10)
[2025-01-23 21:01] LABS: Alanine Aminotransferase 51 U/L (0-33); Albumin Level 4.2 g/dL (3.5-5.2); Alkaline Phosphatase 56 U/L (35-105); Anion Gap 20.2 (5-19); Aspartate Amino Transferase 50 U/L (0-32); Blood Urea Nitrogen 18 mg/dL (8-23); Calcium 10.6 mg/dL (8.5-10.5); Carbon Dioxide 25 mmol/L (22-29); Chloride 100 mmol/L (98-107); Creatinine Clr Calc Pharmacy 33.5950; Globulin 3.8 g/dL (1.3-4.6); Glucose 163 mg/dL (65-115); Osmolality Calculated 297 mOsm/kg (285-295); Potassium 4.2 mmol/L (3.5-5.1); Sodium 141 mmol/L (136-145); Total Protein 8.0 g/dL (6.6-8.7)
[2025-01-23 21:03] LABS: Lactic Sepsis W/Reflex 3.6 mmol/L (0.5-2.2)
[2025-01-23 21:11] LABS: Glucose Urine UA Negative (Normal); Nitrate Urine Negative (Negative); Specific Gravity, Urine 1.021 (1.005-1.030)
[2025-01-23 21:35] LABS: UA Slide Review UA Slide Review Perf
--- NOTE | 2025-01-23 21:35 | ECG_ITS ---
Inside Test Date: 2025-01-23 Pat Name: Kadi Hernandez Department: Room: Gender: Female Records Administrator: : 1945 Requested By: Avni Curry Order Number: [id number] Melendez MD: Julian Pitts M.D. Measurements Intervals [place] Rate: 73 P: 77 SD: 148 QRS: 55 QRSD: 88 T: 41 QT: 403 QTc: 447 Interpretive Statements SINUS RHYTHM WITH OCCASIONAL VENTRICULAR PREMATURE COMPLEXES Compared to ECG 09/16/2024 03:55:09 Ventricular premature complex(es) now present Myocardial infarct finding no longer present Electronically Signed On 01-25-2025 13:19:38 CDT by Julian Pitts M.D. [email or web address] [id number]
[2025-01-23 21:46] VITALS: BP 189/102; PULSE 75; O2SAT 95
--- NOTE | 2025-01-23 22:12 | W.ED.SYNCOPE ---
HPI - Syncope General: Chief Complaint: Syncope Stated Complaint: CP Shaking fainted Time Seen by Provider: 01/23/25 19:54 History of Present Illness: 79 yo F with history of atrial fibrillation, hypertension, coronary artery disease, dyslipidemia, recurrent UTIs, prior sepsis, essential tremor, BPPV, gout, and melanoma presented for a syncopal episode. Per motors assembler, there was syncope with chest pain. Patient is unsure what she was doing at onset; denies falling and states she reached a chair before blacking out. Care team notes increased confusion compared with baseline; she asked for a physician who has been for years. No focal lateralizing complaints reported. Nursing notes indicate annoyance but cooperative. Initial triage vitals were BP 165/66, HR 77, RR 21, T 98.1 F, SpO2 96% RA. No labs, EKG, or imaging completed during the first hour of arrival. ROS limited by confusion; denies fall. Son also notes the patient has had multiple bouts of diarrhea today Related Data Home Medications ?Medication ?Instructions ?Recorded ?Confirmed fluticasone propionate 50 2 spray intranasal DAILY PRN 09/15/21 10/07/24 mcg/actuation nasal Allergy Symptoms spray,suspension (Flonase Allergy Relief) atorvastatin 20 mg tablet 20 mg PO BEDTIME 07/29/23 10/07/24 donepezil 10 mg tablet 10 mg PO DAILY 11/02/23 10/07/24 buspirone 5 mg tablet 5 mg PO DAILY 04/21/24 10/07/24 cholecalciferol (vitamin D3) 1,250 50,000 unit PO Q7D 04/21/24 10/07/24 mcg (50,000 unit) capsule rivaroxaban 20 mg tablet (Xarelto) 20 mg PO QAM 06/02/24 10/07/24 albuterol sulfate 90 mcg/actuation 2 puff inhalation Q6H 09/07/24 10/07/24 aerosol inhaler (Ventolin HFA) amiodarone 200 mg tablet 200 mg PO DAILY 09/07/24 10/07/24 budesonide-formoterol HFA 160 2 puff inhalation BID 09/07/24 10/07/24 mcg-4.5 mcg/actuation aerosol inhaler (Symbicort) icosapent ethyl 1 gram capsule 1 g PO DAILY 09/07/24 10/07/24 (Vascepa) vitamins with calcium 1 tab PO DAILY 09/07/24 10/07/24 no.72-iron 27 mg-folic acid 1 mg tablet ( Vitamins Plus Low Iron) Previous Rx's ?Medication ?Instructions ?Recorded isosorbide mononitrate 60 mg 60 mg PO QAM #100 tabs 05/13/24 tablet,extended release 24 hr losartan 50 mg tablet 50 mg PO DAILY #180 tabs 06/03/24 hydralazine 25 mg tablet 25 mg PO BID #180 tabs 08/16/24 meclizine 12.5 mg tablet 12.5 mg PO TID PRN dizziness #20 09/16/24 tabs alprazolam 0.5 mg tablet 0.5 mg PO BID PRN stress 30 days 11/28/24 #60 tabs Allergies Allergy/AdvReac Type Severity Reaction Status Date / Time lisinopril Allergy coughing Verified 01/23/25 18:30 [facility] ED [facility]: Medical History (Updated 01/23/25 @ 22:16 by Bhupinder Uriostegui MD) Reactive airway disease Memory loss UTI (urinary tract infection) Benign positional vertigo Benign hypertension Atrial fibrillation with rapid ventricular response Hypertriglyceridemia Exertional shortness of breath Hypertensive urgency Hypertension Generalized weakness Chest pain UTI (urinary tract infection) Bradycardia CAD (coronary artery disease) Dizziness Atrial fibrillation Essential tremor Generalized weakness Lactic acidosis Acute metabolic encephalopathy Sepsis Atrial fibrillation Urinary tract infection Elevated blood pressure reading Palpitation HTN (hypertension) Gout Dyslipidemia Melanoma Surgical History Hx of cataract extraction History of cholecystectomy Status post laparoscopic cholecystectomy (03/30/20) History of removal of ovarian cyst History of carpal tunnel release S/P complete hysterectomy H/O esophagogastroduodenoscopy 1977 H/O colonoscopy 2016 Family History Mother Melanoma Diabetes Stroke Father CAD (coronary artery disease) unknown age of onset, [place] at 62 Cancer Family/Other Cancer Grandmother Cancer Brother Diabetes Denies family history of Clotting disorder Dementia Chronic kidney disease (CKD) Suicide Anesthesia complication Bleeding disorder Lung disease Social History Smoking and tobacco/nicotine status: never used tobacco/nicotine Alcohol intake: never Substance/Drug Use: never Household members: spouse Marital status: Current occupational status: retired Physical Exam Narrative: EXAM NARRATIVE: Gen: Alert, pleasantly demented; appears more confused than baseline per family. Lungs: Clear; no respiratory distress. CV: Regular rate and rhythm; no murmur noted. Neuro: No lateralizing deficits. Chronic low-amplitude bilateral upper extremity tremor, worse with intention. Const: COMMON NORMALS: no acute distress HENMT: COMMON NORMALS: normocephalic and atraumatic HEAD & SCALP: normocephalic and atraumatic Eye: COMMON NORMALS: Equal, round and reactive pupils present, EOMs intact bilaterally and no scleral icterus PUPIL: Yes Equal, round and reactive pupils present Resp: COMMON NORMALS: normal respiratory effort and No retractions GI: COMMON NORMALS: Normal to inspection, nondistended, normoactive bowel sounds present, Soft to palpation and non-tender PALPATION: Yes Soft to palpation Skin: COMMON NORMALS: no rashes or lesions noted GENERAL SKIN EXAM: no rashes or lesions noted Course Vital Signs: Vital signs: Vital Signs Temperature 98.1 F 01/23/25 18:22 Pulse Rate 75 01/23/25 21:46 Respiratory Rate 21 H 01/23/25 20:01 Blood Pressure 189/102 01/23/25 21:46 Pulse Oximetry 95 01/23/25 21:46 Oxygen Delivery Me thod Room Air 01/23/25 18:22 MDM - Syncope Medical Decision Making 79 yo F with atrial fibrillation, hypertension, coronary artery disease, recurrent UTIs and prior sepsis presents after syncope; no fall, sat in chair before blackout. Reported chest pain per motors assembler. Family notes confusion beyond baseline. Vitals: BP 165/66, HR 77, RR 21, afebrile, SpO2 96% RA. Physical exam: regular rate and rhythm without murmur, lungs clear, no focal deficits, intention tremor, pleasantly demented with increased confusion from baseline. Differential diagnosis includes syncope due to dysrhythmia or bradyarrhythmia given atrial fibrillation history; acute coronary syndrome considered given reported chest pain. Infectious causes considered given recurrent UTIs and prior sepsis; acute encephalopathy possibly from UTI vs baseline dementia. Patient feels much better after receiving 1 L of IV fluid and has perked up significantly. Lactic acid was initially 3.5 and creatinine is 1.5 up from baseline of 1.0. White blood cell count is not elevated and urinalysis is not clearly infected. Patient has had 5 bouts of foul-smelling diarrhea while in the emergency department and should likely be tested for C. difficile. Urine and blood cultures are pending. Given her elevated lactic acid and history of sepsis, she will be observed in the hospital overnight to make sure she does not decline. She is agreeable to the plan. Lab Data 01/23/25 20:01/23/25 20: Radiology Impressions Chest X-Ray 01/23/25 19:35 IMPRESSION: No acute findings. Head CT 01/23/25: IMPRESSION: No definite acute intracranial abnormality. Laboratory Results WBC 10.71 10^3/uL (3.29-11.43) 01/23/25 20: RBC 4.35 10^6/uL (3.85-5.65) 01/23/25 20: Hgb 12.40 g/dL (11.27-16.99) 01/23/25 20: Hct 40.7 % (36-47) 01/23/25 20: MCV 93.6 fl (85-98) 01/23/25 20: MCH 28.5 pg (27-33) 01/23/25 20: MCHC 30.5 g/dL (30-55) 01/23/25 20: RDW 14.4 % (12.1-15.1) 01/23/25 20: Plt Count 239 10^3/cmm (157-399) 01/23/25 20: MPV 11.0 fL (7.4-10.4) H 01/23/25 20: Neut % (Auto) 76.1 % 01/23/25 20: Lymph % (Auto) 12.3 % 01/23/25: [place] % (Auto) 9.4 % 01/23/25 20: Eos % (Auto) 1.4 % 01/23/25 20: Baso % (Auto) 0.5 % 01/23/25: Neut # (Auto) 8.15 10^3/uL (1.8-7.7) H 01/23/25 20:26 Lymph # (Auto) 1.3 10^3/uL (0.8-4.8) 01/23/25 20:26 [place] # (Auto) 1.0 10^3/uL (0.2-0.9) H 01/23/25 20:26 Eos # (Auto) 0.2 10^3/uL (0.0-0.8) 01/23/25 20: Baso # (Auto) 0.1 10^3/uL (0.0-0.1) 01/23/25 20: Nucleated RBC % (auto) 0 % 01/23/25 20: Nucleated RBCs # 0.0 /100WBC 01/23/25 20: Sodium 141 mmol/L (136-145) 01/23/25 20: Potassium 4.2 mmol/L (3.5-5.1) 01/23/25 20: Chloride 100 mmol/L (98-107) 01/23/25 20: Carbon Dioxide 25 mmol/L (22-29) 01/23/25 20: Anion Gap 20.2 (5-19) H 01/23/25 20: BUN 18 mg/dL (8-23) 01/23/25 20: Creatinine 1.5 mg/dL (0.5-0.9) H 01/23/25 20: GFR Calculation Not Reportable 01/23/25 20: Glucose 163 mg/dL (65-115) H 01/23/25 20:26 Calculated Osmolality 297 mOsm/kg (285-295) H 01/23/25 20: Lactic Acid 3.6 mmol/L (0.5-2.2) H 01/23/25 20: Calcium 10.6 mg/dL (8.5-10.5) H 01/23/25 20: Total Bilirubin 0.5 mg/dL (0.15-1.2) 01/23/25 20: AST 50 U/L (0-32) H 01/23/25 20: ALT 51 U/L (0-33) H 01/23/25 20:26 Alkaline Phosphatase 56 U/L (35-105) 01/23/25 20: Troponin T Baseline 13 ng/L (0-10) H 01/23/25 20:26 Total Protein 8.0 g/dL (6.6-8.7) 01/23/25 20: Albumin 4.2 g/dL (3.5-5.2) 01/23/25 20: Globulin 3.8 g/dL (1.3-4.6) 01/23/25 20:26 Urine Color [place] (Yellow) A 01/23/25 20:51 Urine Appearance Turbid (CLEAR) A 01/23/25 20: Urine pH 5.0 (5-7) 01/23/25 20:51 Ur Specific [place] 1.021 (1.005-1.030) 01/23/25 20:51 Urine Protein 2+ (Negative) A 01/23/25 20: Urine Glucose (UA) Negative (Normal) 01/23/25 20: Urine Ketones Trace (Negative) 01/23/25 20:51 Urine Blood 3+ (Negative) A 01/23/25 20: Urine Nitrate Negative (Negative) 01/23/25 20:51 Urine Bilirubin Negative (Negative) 01/23/25 20:51 Urine Urobilinogen 1.0 mg/dL (Negative) 01/23/25 20:51 Ur Leukocyte Esterase 1+ (Negative) A 01/23/25 20:51 Urine RBC >100 /hpf (0-2) H 01/23/25 20:51 Urine WBC 6-10 /hpf (0-5) 01/23/25 20:51 Ur Squamous Epith Cells 6-10 /hpf (0-5) 01/23/25 20:51 Calcium Oxalate Crystal 5-10 /hpf H 01/23/25 20:51 Amorphous Sediment Not Reportable 01/23/25 20:51 Urine Bacteria None seen /hpf (NONE) 01/23/25 20:51 Hyaline Casts 0.81 /lpf 01/23/25 20:51 Urine Mucus 2+ /hpf 01/23/25 20:51 All radiology interpretation(s) finalized by discharge EKG Data EKG 1: Interpretation: Time?2139?sinus rhythm with infrequent PVCs, rate of 73, no ST segment elevation or depression, no T wave versions, QTc = 429 Discharge Plan Discharge Patient Disposition: Placed in Observation Admit Provider: Kit Mata Clinical Impression: Syncope, JENN (acute kidney injury), Elevated lactic acid level Coding Level of Care Code ED Undercollar Maker for Hakeem Sebastian
[2025-01-23 22:19] LABS: Reflex Lactate Order REFLEX LACTIC ORDERD
[2025-01-23 23:38] LABS: Troponin 5 2HR 15.32 ng/L (0-10); Troponin 5 2HR Delta 2.32 ABS# (0-10)
[2025-01-23 23:41] LABS: Lactic Acid level (Lactate) 3.1 mmol/L (0.5-2.2)
[2025-01-23 23:50] VITALS: BMI 41.5
[2025-01-24] VITALS (12 sets, daily range): BP systolic 106–184; BP diastolic 64–90; PULSE 52–79; RESP 15–17; TEMP 36.4–37; O2SAT 92–97
--- NOTE | 2025-01-24 01:53 | PM.HP ---
Providers/Chief Complaint Admitting Physician: Kit Mata MD Primary Care Provider: CEDRIC Ayon Chief Complaint: CP Shaking fainted History of Present Illness Kadi Hernandez is a 79 year old female has long history of essential tremor but also atrial fibrillation on apixaban, hypertension coronary artery disease recurrent urinary tract infection who had syncopal episode noted by her . Patient mated to a chair before passing out but had increased confusion. CT scan was negative and neuroexam negative but patient was irritable. Vital signs stable not hypotensive. Patient admits to multiple bouts of diarrhea with gas pains for about a week. She lives with her Yoni who has not been sick and her son Farhan lives next-door also not sick. Patient reports headache for 1 week and typically does not have headache she reports that 12/15 currently she could not recall that she had had a CT scan in the emergency department. ER doctor wanted to admit her to the hospital for observation due to fear of deterioration and recommend observation overnight. Review of Systems Narrative: General subjective fevers and chills for 2 weeks not measured she has had tremors for 5 to 10 years weight has been stable Cardiovascular positive for palpitations she has had edema in the legs for about 3 months she reports dyspnea on exertion but has asthma. She has never been a smoker Respiratory positive for wheezing and sinus congestion GI positive for nausea without vomiting she states she never vomits she has had diarrhea with gas pains for a week has dysuria chronically so drinks vinegar and water to alleviate that TOPOGRAPHIC COMPUTATOR negative Malignancy history positive for stage III uterine cancer status post PARKER/BSO about 5 years ago Hematologic negative for bleeding or bruising problems has never had DVT or PE Neuro denies seizures strokes she has chronic tremor for greater than 5 years estimates at 7-1/2 years and states that she takes primidone and propranolol with improvement but has not taken them this evening Medications/Allergies Home Medications ?Medication ?Instructions ?Recorded ?Confirmed ?Last Taken ?Type fluticasone propionate 50 2 spray intranasal DAILY PRN 09/15/21 10/07/24 Unknown History mcg/actuation nasal Allergy Symptoms spray,suspension (Flonase Allergy Relief) atorvastatin 20 mg tablet 20 mg PO BEDTIME 07/29/23 10/07/24 09/06/24 History donepezil 10 mg tablet 10 mg PO DAILY 11/02/23 10/07/24 09/07/24 History buspirone 5 mg tablet 5 mg PO DAILY 04/21/24 10/07/24 09/07/24 History cholecalciferol (vitamin D3) 1,250 50,000 unit PO Q7D 04/21/24 10/07/24 09/04/24 History mcg (50,000 unit) capsule isosorbide mononitrate 60 mg 60 mg PO QAM #100 tabs 05/13/24 10/07/24 09/07/24 Rx tablet,extended release 24 hr rivaroxaban 20 mg tablet (Xarelto) 20 mg PO QAM 06/02/24 10/07/24 09/07/24 History losartan 50 mg tablet 50 mg PO DAILY #180 tabs 06/03/24 10/07/24 09/07/24 Rx hydralazine 25 mg tablet 25 mg PO BID #180 tabs 08/16/24 10/07/24 09/07/24 Rx albuterol sulfate 90 mcg/actuation 2 puff inhalation Q6H 09/07/24 10/07/24 09/07/24 History aerosol inhaler (Ventolin HFA) amiodarone 200 mg tablet 200 mg PO DAILY 09/07/24 10/07/24 09/07/24 History budesonide-formoterol HFA 160 2 puff inhalation BID 09/07/24 10/07/24 09/07/24 History mcg-4.5 mcg/actuation aerosol inhaler (Symbicort) icosapent ethyl 1 gram capsule 1 g PO DAILY 09/07/24 10/07/24 09/07/24 History (Vascepa) vitamins with calcium 1 tab PO DAILY 09/07/24 10/07/24 09/07/24 History no.72-iron 27 mg-folic acid 1 mg tablet ( Vitamins Plus Low Iron) meclizine 12.5 mg tablet 12.5 mg PO TID PRN dizziness #20 09/16/24 10/07/24 Unknown Rx tabs alprazolam 0.5 mg tablet 0.5 mg PO BID PRN stress 30 days 11/28/24 Unknown Rx #60 tabs Allergies Allergy/AdvReac Type Severity Reaction Status Date / Time lisinopril Allergy coughing Verified 01/23/25 18:30 PFSH Acute PFSH: Medical History (Updated 01/24/25 @ 02:09 by Kit Mata MD) Dizziness of unknown cause Reactive airway disease Memory loss UTI (urinary tract infection) Benign positional vertigo Benign hypertension Atrial fibrillation with rapid ventricular response Hypertriglyceridemia Exertional shortness of breath Hypertensive urgency Hypertension Generalized weakness Chest pain UTI (urinary tract infection) Bradycardia CAD (coronary artery disease) Dizziness Atrial fibrillation Essential tremor Generalized weakness Lactic acidosis Acute metabolic encephalopathy Sepsis Atrial fibrillation Urinary tract infection Elevated blood pressure reading Palpitation HTN (hypertension) Gout Dyslipidemia Melanoma Surgical History Hx of cataract extraction History of cholecystectomy Status post laparoscopic cholecystectomy (03/30/20) History of removal of ovarian cyst History of carpal tunnel release S/P complete hysterectomy H/O esophagogastroduodenoscopy 1977 H/O colonoscopy 2016 Family History Mother Melanoma Diabetes Stroke Father CAD (coronary artery disease) unknown age of onset, [place] at 62 Cancer Family/Other Cancer Grandmother Cancer Brother Diabetes Denies family history of Clotting disorder Dementia Chronic kidney disease (CKD) Suicide Anesthesia complication Bleeding disorder Lung disease Social History (Updated 01/24/25 @ 02:06 by Kit Mata MD) Smoking and tobacco/nicotine status: never used tobacco/nicotine Alcohol intake: never Substance/Drug Use: never Additional social history: She worked at a [employer] in [place] for years then met her who 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 Patient states she wants DNR status as discussed on 01/24/2025. Patient states that her mother needed CPR that she requested and never did think right after that Household members: spouse Marital status: Current occupational status: retired Vitals/I&O/Wt Last Vital Signs Temp 98.6 F 01/24/25 01:27 Pulse 72 01/24/25 01:27 Resp 17 01/24/25 01:27 BP 182/82 01/24/25 01:27 Pulse Ox 97 01/24/25 01:27 O2 Del Method Room Air 01/23/25 23:50 01/23/25 01/23/25 01/24/25 14:59 22:59 06:59 Intake Total 1000 / 1000 Balance 1000 / 1000 Weight last 48 hrs Weight 103.102 kg Weight 99.79 kg Physical Exam Narrative: General well-developed well-nourished morbidly obese female in no acute cardiopulmonary stress Oropharynx Mallampati 2 Neck no bruits Cardiovascular regular rate and rhythm no loud murmur radial pulses 2+ Lungs clear to auscultation bilaterally Abdomen positive bowel sounds obese soft nontender Calves trace ankle edema no asymmetry no tenderness cords Neuro she is alert and oriented to person hospital and town she she did not know the month and she actually got the year wrong and said 2022 she did know the president she was not sure on the season of the year Data 01/23/25 20:26 01/23/25 20: Micro: Microbiology 01/23/25 20:20 Blood Culture - Preliminary Blood SPECIMEN COLLECTED 01/23/25 20: Blood Culture - Preliminary Blood SPECIMEN COLLECTED A&P Assessment and plan 1. Syncope and collapse: Patient had witnessed syncope unknown cause. Blood pressure has been stable and actually a little high. She had CT of the head which was negative for bleeding or obvious stroke. She has had CTA of the neck 2023 and 2024 as well as MR angiography of the head which has been negative. Patient is admitted for overnight observation and will have PT evaluate and treat we will also do carotid Dopplers 2. Dizziness of unknown cause: Unclear etiology will check orthostatic blood pressure 3. Essential tremor: Appears to be benign essential tremor present at rest improved with activity 4. JENN (acute kidney injury): Hold losartan for now patient received 3 L of fluid recheck mini panel in morning 5. Elevated lactic acid level: As above, I suspected metformin but she is not on metformin she does not appear septic 3 L bolus did not improve her lactic acid from still elevated at 3 PDMP PDMP Reviewed: Not Reviewed Attestations Medical Necessity Statement*: Patient is observed in the hospital and expected to require less than 2 midnight Coding Level of Care Code 53208 Diagnoses Syncope and collapse R55 Dizziness of unknown cause R42 Essential tremor G25.0 JENN (acute kidney injury) N17.9 Elevated lactic acid level R79.89 Time Spent (min) 70
--- NOTE | 2025-01-24 02:12 | USCV_ITS ---
Kadi Hernandez Age: 79 Gender: F : 1945 Exam Date: 01/24/2025 06:38 Ordering Phys: Kit Mata MD Technologist: Exam Location: [facility] [place] Indication: syncope Risk Factors: Previous Vascular Surgery: Right Brachial BP: / Left Brachial BP: / Right Left Velocity (cm/s) Spectral Plaque Velocity (cm/s) Spectral Plaque Syst/Diast Broadening Syst/Diast Broadening 79.60/ 20.20 Prox CCA 73.20 / 15.20 91.20/ 17.30 Mid CCA 77.40 / 11.00 90.50/ 17.30 Distal CCA 85.90 / 16.80 68.50/ 15.10 Prox ICA 54.40 / 15.10 71.90/ 16.70 Mid ICA 74.90 / 17.60 55.00/ 13.90 Distal ICA 81.20 / 16.10 67.60 ECA 76.20 0.80 ICA/CCA 0.60 Antegrade Vertebral Antegrade 40.70/ 9.00 cm/s 44.80/ 10.20 cm/s Tri Subclavian Tri 110.6 114.8 0 0 FINDINGS Comparison: none available. Diffuse bilateral scattered calcified plaque and intimal thickening throughout the common carotid arteries and extending through the bifurcation. No significant elevation of systolic or diastolic velocities. Waveforms are normal. Antegrade vertebral arteries. CONCLUSIONS Bilateral ICA stenosis less than 50%. Mild carotid atherosclerosis. Dr. Svetlana Morse DO (Electronically Signed) Final Date: 24 January 2025 08:19 S
--- NOTE | 2025-01-24 02:23 | ECG_ITS ---
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 Measurements Intervals [place] Rate: 78 P: 99 LA: 146 QRS: 46 QRSD: 89 T: 37 QT: 413 QTc: 473 Interpretive Statements SINUS RHYTHM POSSIBLE ANTERIOR MYOCARDIAL INFARCTION , OF INDETERMINATE AGE [30 ms Q WAVE IN V3/V4, OR R < 0.2 mV IN V4] Compared to ECG 01/23/2025 21:40:08 Myocardial infarct finding now present Ventricular premature complex(es) no longer present Electronically Signed On 01-25-2025 13:19:19 CDT by Julian Pitts M.D. [email or web address]
[2025-01-24 03:15] LABS: Troponin 5 6HR 14.54 ng/L (0-10); Troponin 5 6HR Delta 1.54 ng/L (0-12)
[2025-01-24 11:21] LABS: Anion Gap 18.4 (5-19); Blood Urea Nitrogen 16 mg/dL (8-23); Calcium 10.1 mg/dL (8.5-10.5); Carbon Dioxide 23 mmol/L (22-29); Chloride 104 mmol/L (98-107); Creatinine Clr Calc Pharmacy 34.2047; Glucose 170 mg/dL (65-115); Osmolality Calculated 297 mOsm/kg (285-295); Potassium 4.4 mmol/L (3.5-5.1); Sodium 141 mmol/L (136-145)
[2025-01-24 12:39] LABS: Anion Gap 17.5 (5-19); Blood Urea Nitrogen 15 mg/dL (8-23); Calcium 9.9 mg/dL (8.5-10.5); Carbon Dioxide 24 mmol/L (22-29); Chloride 104 mmol/L (98-107); Creatinine Clr Calc Pharmacy 34.2047; Glucose 134 mg/dL (65-115); Magnesium 1.4 mg/dL (1.7-2.3); Osmolality Calculated 295 mOsm/kg (285-295); Potassium 4.5 mmol/L (3.5-5.1); Sodium 141 mmol/L (136-145)
--- NOTE | 2025-01-24 14:14 | PM.MISC ---
Miscellaneous Note Purpose of Documentation: Patient admitted as a case of syncope and mild JENN CT head unremarkable carotid Dopplers negative Note: Patient received adequate fluid resuscitation and renal parameters still more or less around 1.5. Continue fluids till tomorrow and for possible discharge if stable renal parameters and to follow-up with the primary care physician Patient has lactate levels which are around 3, retrospect review of the chart reveals the same lactate levels possible reasons include type II lactic acidosis as the patient has been on albuterol. There is no clinical significant findings based on symptoms and signs for any decreased perfusion of the organs. Patient appears euvolemic with adequate capillary refill and adequate urine output. Abdomen nontender patient is alert and oriented and ambulating with assistance without any concerns. To follow-up patient's overall general clinical status tomorrow and labs and diagnostics if stable for possible discharge
[2025-01-24 15:04] LABS: Free T4 Free Thyroxine 1.23 ng/dL (0.82-1.77); Thyroid Stimulating Hormone 1.39 uIU/mL (0.27-4.20)
[2025-01-24] MEDS: magnesium sulfate premix 2 GM/50 ML PIGGYBACK IV (15:13)
[2025-01-24] MEDS: cefTRIAXone 1,000 mg SDV 1000 MG IVP (15:15)
[2025-01-24 16:20] LABS: Bacillus cereus group Not Detected (NOT DETECT); Bacillus subtillis group Not Detected (NOT DETECT); Corynebacterium Not Detected (NOT DETECT); Cutibacterium acnes (P.acnes) Not Detected (NOT DETECT); Enterococcus faecalis Not Detected (NOT DETECT); Enterococcus faecium Not Detected (NOT DETECT); Listeria Not Detected (NOT DETECT); Micrococcus Not Detected (NOT DETECT); Pan Candida Not Detected (NOT DETECT); Pan Gram-Negative Not Detected (NOT DETECT); Staphylococcus lugdunensis Not Detected (NOT DETECT); Staphylococcus species Detected (NOT DETECT); Streptococcus anginosus group Not Detected (NOT DETECT); Streptococcus pyogenes Not Detected (NOT DETECT); Streptococcus species Not Detected (NOT DETECT); mecC Not Detected (NOT DETECT)
[2025-01-24 16:59] LABS: Staphylococcus epidermidis Detected (NOT DETECT); mecA Detected (NOT DETECT)
[2025-01-24] MEDS: ATORVASTATIN 10 MG TABLET 20 MG PO (21:03)
[2025-01-25 01:00] VITALS: BP 139/80; PULSE 64; RESP 16; TEMP 36.8; O2SAT 92
[2025-01-25 04:30] LABS: Hematocrit 35.6 % (36-47); Hemoglobin 11.10 g/dL (11.27-16.99); Mean Corpuscular HGB Conc 31.2 g/dL (30-55); Mean Corpuscular Hemoglobin 29.2 pg (27-33); Mean Corpuscular Volume 93.7 fl (85-98); Nucleated Red Blood Cells % 0 %; Platelet Count 198 10^3/cmm (157-399); Red Blood Count 3.80 10^6/uL (3.85-5.65); White Blood Count 7.03 10^3/uL (3.29-11.43)
[2025-01-25 04:52] LABS: Alanine Aminotransferase 37 U/L (0-33); Albumin Level 3.5 g/dL (3.5-5.2); Alkaline Phosphatase 45 U/L (35-105); Anion Gap 18.8 (5-19); Aspartate Amino Transferase 41 U/L (0-32); Blood Urea Nitrogen 14 mg/dL (8-23); Calcium 9.7 mg/dL (8.5-10.5); Carbon Dioxide 24 mmol/L (22-29); Chloride 102 mmol/L (98-107); Globulin 3.5 g/dL (1.3-4.6); Glucose 151 mg/dL (65-115); Magnesium 1.8 mg/dL (1.7-2.3); Osmolality Calculated 293 mOsm/kg (285-295); Potassium 4.8 mmol/L (3.5-5.1); Sodium 140 mmol/L (136-145); Total Protein 7.0 g/dL (6.6-8.7)
[2025-01-25 05:19] LABS: Creatinine Clr Calc Pharmacy 34.2047
[2025-01-25 06:00] VITALS: BP 132/81; PULSE 54; PULSE 60; RESP 15; TEMP 36.7; O2SAT 96
[2025-01-25 07:24] VITALS: BP 137/67; PULSE 62; RESP 16; TEMP 36.5; O2SAT 95
[2025-01-25 08:24] VITALS: PULSE 63; RESP 16; O2SAT 96
--- NOTE | 2025-01-25 08:41 | USR_ITS ---
PROCEDURE INFORMATION: Exam: US Retroperitoneal, Complete, Kidneys and Bladder Exam date and time: 01/25/2025 9:25 AM Age: 79 years old Clinical indication: Condition or disease; Other: Carmine; Additional info: Carmine work up TECHNIQUE: Imaging protocol: Real-time ultrasound of the retroperitoneum with image documentation. Complete exam focused on the bilateral kidneys and urinary bladder. COMPARISON: CT abdomen pelvis w con* [id number] 03/09/2020 2:05 AM FINDINGS: Right kidney: Right kidney measured at 9.3 x 5.4 x 3.1 cm, renal volume 80.94 mL. Right renal parenchyma thickness measured at 1.1 cm. No dilated renal collecting system and no perirenal fluid demonstrated of visualized portions right kidney. Left kidney: Left kidney measured at 10.2 by 3.2 x 4.2 cm, renal volume 72.18 mL. Left renal parenchymal thickness measured at 1.2 cm. No dilated renal collecting system and no perirenal fluid demonstrated of visualized portions of the left kidney. Urinary bladder: Urinary bladder appears partly filled, not well evaluated. Liver: Visualized portions of liver appear echodense, echogenic with limited penetration, limited visualization through liver suggesting diffuse fatty liver, hepatic steatosis. Aorta: Evidence of atherosclerotic disease visualized portions abdominal aorta, partly obscured. US/US renal BI* [id number] IMPRESSION: 1. No dilated renal collecting system demonstrated of visualized portions kidneys bilaterally. 2. Evidence of diffuse fatty liver, hepatic steatosis.
[2025-01-25 11:16] VITALS: BP 139/72; PULSE 52; RESP 16; TEMP 36.4; O2SAT 94
--- NOTE | 2025-01-25 12:02 | P.DS_ITS ---
Discharge Providers Date of Admission: 01/23/25 23:06 Date of Discharge: January 25, 2025 Attending Provider at Admission: Kit Mata MD Attending Provider at Discharge: Mariana Malik MD Primary Care Provider: CEDRIC Ayon Diagnoses at Discharge Discharge Diagnosis 1. Syncope and collapse: 2. Dizziness of unknown cause: 3. Essential tremor: 4. JENN (acute kidney injury): 5. Elevated lactic acid level: Reason for Visit Reason for Visit: CP Shaking fainted Brief History: As per the previous retrospective note and the patient Kadi Hernandez is a 79 year old female has long history of essential tremor but also atrial fibrillation on apixaban, hypertension coronary artery disease recurrent urinary tract infection who had syncopal episode noted by her . Patient mated to a chair before passing out but had increased confusion. Patient admits to multiple bouts of diarrhea with gas pains for about a week. She lives with her Yoni who has not been sick and her son Farhan lives next-door also not sick. Patient reports headache for 1 week and typically does not have headache she reports that 12/15 currently she could not recall that she had had a CT scan in the emergency department. ER doctor wanted to admit her to the hospital for observation due to fear of deterioration and recommend observation overnight. Hospital Course Hospital Course Thorough clinical examination/neuro examination at the time of presentation as per the documentation in the admitting physician was unremarkable. Patient was further investigated with head CT scan was negative. Carotid Doppler was also unremarkable for any significant stenosis requiring intervention. The patient reported having dizziness and is on meclizine at home. Orthostatics during this admission were unremarkable. Patient also had mild JENN received fluid resuscitation and ultrasound of the kidneys was also done which did not show any hydronephrosis but showed diffuse fatty liver/hepatic steatosis. Her kidney functions remained at 1.5 with no further deterioration. Her losartan dose was reduced to 25 mg before discharge and to be followed by PCP postdischarge She also had elevation of lactate which could be type II since the patient is on albuterol as well. The patient did not report any symptoms of decreased perfusion like abdominal pain, skin mottling or any. On clinical examination she also was producing adequate amount of urine adequate capillary refill mentation with adequate mobility to the bathroom and the back. Her serum electrolytes were also monitored and corrected accordingly. She had mild elevation of liver enzymes which correlates with hepatic steatosis. Delta tropes were not significantly raised or concerning. EKGs were also reviewed. Patient stability established and medication reconciled according to her condition before discharge. Patient condition has been discussed at length with the patient/family, I have independently reviewed the chart labs imaging/diagnostics/EKG. The patient/family has been informed about the current condition and further plan of care. Agreed with the plan of care and understood without any language barrier. Every effort was made to ensure accuracy of pathology laboratory technologist. Any obvious errors or omissions should be clarified with the author of the document. Physical Exam Narrative: General: Alert and oriented, lying comfortably without any distress HEENT: Normocephalic, atraumatic, grossly unremarkable exam Cardio: normal rate rhythm, normal S1-S2 without any murmurs, rubs, or gallops and JVD normal Respiratory: normal vascular breathing on auscultation without any wheezes, stridor, rhonchi GI: Abdomen soft, nontender, nondistended, normoactive bowel sounds present all 4 quadrants, Neuro: intact cranial nerves motor and sensory and cerebellar/coordination function without any focal neurological deficit Behavior: Appropriate and cooperative Extremities: Adequate palpable pulses, no edema or cyanosis observed Skin: grossly unremarkable exam Discharge Data Studies Completed and Pending Completed Studies During Hospitalization Category Date Time Status CT head wo con* [id number] Stat Cat Scan 01/23/25 20:19 Completed XR chest 1V portable [id number] Stat Exams 01/23/25 19:35 Completed CV carotid duplex BI* [id number] Routine Ultrasound 01/24/25 02:12 Completed US kidney bilateral [US renal BI* [id number]] Routine Ultrasound 01/25/25 08:41 Com pleted Pending at discharge Category Date Time Status Blood Culture Stat Lab 01/23/25 20:20 Results C.Diff PCR (Lab) Stat Lab 01/23/25 23:15 Uncollected Radiology Impressions Chest X-Ray 01/23/25 19:35 IMPRESSION: No acute findings. Head CT 01/23/25 20:19 IMPRESSION: No definite acute intracranial abnormality. Renal Ultrasound 01/25/25 08:41 IMPRESSION: 1. No dilated renal collecting system demonstrated of visualized portions kidneys bilaterally. 2. Evidence of diffuse fatty liver, hepatic steatosis. Laboratory Results WBC 7.03 10^3/uL (3.29-11.43) 01/25/25 04:16 RBC 3.80 10^6/uL (3.85-5.65) L 01/25/25 04:16 Hgb 11.10 g/dL (11.27-16.99) L 01/25/25 04:16 Hct 35.6 % (36-47) L 01/25/25 04:16 MCV 93.7 fl (85-98) 01/25/25 04:16 MCH 29.2 pg (27-33) 01/25/25 04:16 MCHC 31.2 g/dL (30-55) 01/25/25 04:16 RDW 14.4 % (12.1-15.1) 01/25/25 04:16 Plt Count 198 10^3/cmm (157-399) 01/25/25 04:16 MPV 11.0 fL (7.4-10.4) H 01/25/25 04:16 Neut % (Auto) 59.8 % 01/25/25 04:16 Lymph % (Auto) 22.0 % 01/25/25 04:16 [place]aines % (Auto) 13.2 % 01/25/25 04:16 Eos % (Auto) 4.1 % 01/25/25 04:16 Baso % (Auto) 0.6 % 01/25/25 04:16 Neut # (Auto) 4.20 10^3/uL (1.8-7.7) 01/25/25 04:16 Lymph # (Auto) 1.6 10^3/uL (0.8-4.8) 01/25/25 04:16 Haines # (Auto) 0.9 10^3/uL (0.2-0.9) 01/25/25 04:16 Eos # (Auto) 0.3 10^3/uL (0.0-0.8) 01/25/25 04:16 Baso # (Auto) 0.0 10^3/uL (0.0-0.1) 01/25/25 04:16 Nucleated RBC % (auto) 0 % 01/25/25 04:16 Nucleated RBCs # 0.0 /100WBC 01/25/25 04:16 Sodium 140 mmol/L (136-145) 01/25/25 04:16 Potassium 4.8 mmol/L (3.5-5.1) 01/25/25 04:16 Chloride 102 mmol/L (98-107) 01/25/25 04:16 Carbon Dioxide 24 mmol/L (22-29) 01/25/25 04:16 Anion Gap 18.8 (5-19) 01/25/25 04:16 BUN 14 mg/dL (8-23) 01/25/25 04:16 Creatinine 1.5 mg/dL (0.5-0.9) H 01/25/25 04:16 GFR Calculation Not Reportable 01/25/25 04:16 Glucose 151 mg/dL (65-115) H 01/25/25 04:16 Calculated Osmolality 293 mOsm/kg (285-295) 01/25/25 04:16 Lactic Acid 3.6 mmol/L (0.5-2.2) H 01/23/25 20:26 Lactic Acid (Sepsis) 3.1 mmol/L (0.5-2.2) H 01/23/25 22:58 Calcium 9.7 mg/dL (8.5-10.5) 01/25/25 04:16 Magnesium 1.8 mg/dL (1.7-2.3) 01/25/25 04:16 Total Bilirubin 0.5 mg/dL (0.15-1.2) 01/25/25 04:16 AST 41 U/L (0-32) H 01/25/25 04:16 ALT 37 U/L (0-33) H 01/25/25 04:16 Alkaline Phosphatase 45 U/L (35-105) 01/25/25 04:16 Troponin T Baseline 13 ng/L (0-10) H 01/23/25 20:26 Troponin T 120 Minute 15.32 ng/L (0-10) H 01/23/25 22:58 Delta Troponin T 2.32 ABS# (0-10) 01/23/25 22:58 Troponin T Hi Sens 6Hr 14.54 ng/L (0-10) H 01/24/25 02:46 Troponin T Hi Sens 6Hr Delta 1.54 ng/L (0-12) 01/24/25 02:46 Total Protein 7.0 g/dL (6.6-8.7) 01/25/25 04:16 Albumin 3.5 g/dL (3.5-5.2) 01/25/25 04:16 Globulin 3.5 g/dL (1.3-4.6) 01/25/25 04:16 TSH 1.39 uIU/mL (0.27-4.20) 01/24/25 12:16 Free T4 1.23 ng/dL (0.82-1.77) 01/24/25 12:16 Free T3 2.2 PG/ML (2.0-4.4) 01/24/25 12:16 Urine Color [place] (Yellow) A 01/23/25 20:51 Urine Appearance Turbid (CLEAR) A 01/23/25 20:51 Urine pH 5.0 (5-7) 01/23/25 20:51 Ur Specific [place] 1.021 (1.005-1.030) 01/23/25 20:51 Urine Protein 2+ (Negative) A 01/23/25 20:51 Urine Glucose (UA) Negative (Normal) 01/23/25 20:51 Urine Ketones Trace (Negative) 01/23/25 20:51 Urine Blood 3+ (Negative) A 01/23/25 20:51 Urine Nitrate Negative (Negative) 01/23/25 20:51 Urine Bilirubin Negative (Negative) 01/23/25 20:51 Urine Urobilinogen 1.0 mg/dL (Negative) 01/23/25 20:51 Ur Leukocyte Esterase 1+ (Negative) A 01/23/25 20:51 Urine RBC >100 /hpf (0-2) H 01/23/25 20:51 Urine WBC 6-10 /hpf (0-5) 01/23/25 20:51 Ur Squamous Epith Cells 6-10 /hpf (0-5) 01/23/25 20:51 Calcium Oxalate Crystal 5-10 /hpf H 01/23/25 20:51 Amorphous Sediment Not Reportable 01/23/25 20:51 Urine Bacteria None seen /hpf (NONE) 01/23/25 20:51 Hyaline Casts 0.81 /lpf 01/23/25 20:51 Urine Mucus 2+ /hpf 01/23/25 20:51 Vitals Last Vital Signs Temp 97.6 F 01/25/25 11:16 Pulse 52 L 01/25/25 11:16 Resp 16 01/25/25 11:16 BP 139/72 01/25/25 11:16 Pulse Ox 94 01/25/25 11:16 O2 Del Method Room Air 01/25/25 11:16 Discharge Plan Discharge Patient Disposition: Home Condition: Stable Prescriptions: Continued fluticasone propionate [Flonase Allergy Relief] 50 mcg/actuation spray,suspension 2 spray intranasal DAILY PRN (Reason: Allergy Symptoms) Rx Instructions: administer into each nostril isosorbide mononitrate 60 mg tablet extended release 24 hr 60 mg PO QAM Qty: 100 3RF hydralazine 25 mg tablet 25 mg PO BID Qty: 180 2RF alprazolam 0.5 mg tablet 0.5 mg PO BID PRN (Reason: stress) 30 Days Qty: 60 0RF atorvastatin 20 mg tablet 20 mg PO BEDTIME cholecalciferol (vitamin D3) 1,250 mcg (50,000 unit) capsule 50,000 unit PO Q7D Rx Instructions: Monday Xarelto 20 mg tablet 20 mg PO QAM albuterol sulfate [Ventolin HFA] 90 mcg/actuation HFA aerosol inhaler 2 puff INHALATION Q6H budesonide-formoterol [Symbicort] 160-4.5 mcg/actuation HFA aerosol inhaler 2 puff INHALATION BID amiodarone 200 mg tablet 200 mg PO DAILY Rx Instructions: TAKE 1 TABLET BY MOUTH EVERY DAY icosapent ethyl [Vascepa] 1 gram capsule 1 g PO DAILY Rx Instructions: take 1 capsule BY MOUTH EVERY DAY meclizine 12.5 mg tablet 12.5 mg PO TID PRN (Reason: dizziness) Qty: 20 0RF donepezil 10 mg tablet 10 mg PO DAILY ketoconazole 2 % shampoo See Rx Instructions .ROUTE .COMPLEX Rx Instructions: shampoo SCALP 1-2 times a week NEEDED. let sit ON SCALP FOR FIVE minutes before rinsing estradiol 0.01 % (0.1 mg/gram) cream See Rx Instructions .ROUTE .COMPLEX Rx Instructions: USE DIRECTED VAGINALLY TWICE A WEEK Vitamin Plus Low Iron 27 mg iron- 1 mg tablet 1 tab PO DAILY Changed losartan 50 mg tablet 25 mg PO DAILY Qty: 180 3RF Discharge Order = DC NOW: Discharge Order (Routine); Ordered 01/25/25 Ordered By: Mariana Malik Referrals: Bonnie Fleming FNP [Primary Care Provider, Unknown] - 4-7 days Referral Note: Please call your Primary Care Provider on Monday to schedule a follow up appointment in 4 to 7 days. Discharge Diet: Advance as tolerated Discharge Activity: Resume usual activity and Increase activity as tolerated Patient Instructions: Syncope (DC), Hypomagnesemia (DC), Opioid Safety, Patient Portal & Francesca Instructions Discharge Attestations Time Spent in Discharge Care*: greater than 30 min Specific Discharge Activities: educating patient, educating and/or supporting family/caregiver, discussing with pcp/other providers, discussing with shoe caser/social workers/dc planners, documenting/other paperwork and evaluating patient/reviewing data Status at Discharge: Cognitive status at discharge: cognitively intact , Behavioral status at discharge: cooperative , Functional status at discharge: other assisted ambulation , Overall status at discharge: patient is back to baseline Quality Metrics Clinical Quality Measures [ No reported AMI, CVA or VTE this stay] Coding Level of Care Code Acute Code for Chg Fwd Diagnoses Syncope and collapse R55 Dizziness of unknown cause R42 Essential tremor G25.0 JENN (acute kidney injury) N17.9 Elevated lactic acid level R79.89
[2025-01-25 12:55] VITALS: BP 139/72; PULSE 52; RESP 16; TEMP 36.4; O2SAT 94
== END 2025-01-25 12:56 | disposition home or self-care (01) ==
LOC: ER 22:16 → MEDSURG 23:06
PROVIDERS: Student in an Organized Health Care Education/Training Program; Admitting Provider Internal Medicine; Emergency Provider Student in an Organized Health Care Education/Training Program; PCP Nurse Practitioner Family; Visit Provider Student in an Organized Health Care Education/Training Program
DX: R55 Syncope and collapse (principal); R42 Dizziness and giddiness; G25.0 Essential tremor; N17.9 Acute kidney failure, unspecified; R79.89 Other specified abnormal findings of blood chemistry; Z79.01 Long term (current) use of anticoagulants; E83.42 Hypomagnesemia; I48.20 Chronic atrial fibrillation, unspecified; E78.1 Pure hyperglyceridemia; R00.1 Bradycardia, unspecified; I25.10 Atherosclerotic heart disease of native coronary artery without angina pectoris; Z85.820 Personal history of malignant melanoma of skin; Z80.9 Family history of malignant neoplasm, unspecified
CPT/HCPCS: 36415; 70450; 71045; 76770; 80048; 80053; 81001; 83605; 83735; 84439; 84443; 84481; 84484; 85025; 87040; 87086; 93005; 93880; 94664; 96365; 96375; 97161; 97165; 99285; G0378; J0696; J3475; J7030; J7040; J7120; J9999

== ENCOUNTER 2025-03-20 08:52 | Emergency (ER) | payer MEDICARE, SELFPAY ==
[2025-03-20 08:57] VITALS: PULSE 69; RESP 16; TEMP 36.7; O2SAT 94; BMI 40.0
--- NOTE | 2025-03-20 09:01 | CT_ITS ---
WS: [id number] CT HEAD NONCONTRAST HISTORY: Symptoms of acute stroke TECHNIQUE: Contiguous axial imaging performed through the brain. Bone and soft tissue windows. Sagittal and coronal reformats reviewed. All CT scans at [facility] use at least one of these dose optimization techniques: automated exposure control; mA and/or kV adjustment per patient size (includes targeted exams where dose is matched to clinical indication); or iterative reconstruction. DLP: 678.78 mGy COMPARISON: 01/23/2025 No acute intracranial hemorrhage, midline shift or mass effect. Mild cerebral and cerebellar atrophy. Mild small vessel changes in the white matter. No prior infarct. No sulcal effacement. Ventricles: Normal size with no hydrocephalus. No inferior displacement of the cerebellar tonsils. Paranasal sinuses: As visualized are clear. Mastoid air cells: Well pneumatized. Calvarium and scalp: Skull is intact with no soft tissue edema or swelling. CT/CT head thrombolytic [id number] IMPRESSION: 1. No acute intracranial hemorrhage or edema. 2. Mild cerebral and cerebellar atrophy and small vessel disease. Notified Luann Zepeda MD at 03/20/2025 9:22 AM.
--- NOTE | 2025-03-20 09:01 | XR_ITS ---
WS: [id number] Exam: XR chest 1V portable [id number] Date/Time of Exam: 03/20/2025 9:14 AM Reason For Exam: stack Comparison 01/23/2025. Lungs are clear and fully expanded. Heart size top limits normal. The mediastinum is normal in contour. No pleural effusion. Small battery pack superimposes the left chest. Multiple clothing artifacts. Bony structures are intact. XR/XR chest 1V portable [id number] IMPRESSION: 1. No acute cardiopulmonary finding.
--- NOTE | 2025-03-20 09:01 | ECG_ITS ---
[facility] Test Date: 2025-03-20 Pat Name: Kadi Hernandez Department: Room: Gender: Female Tray Server: : 1945 Requested By: Luann Zepeda Order Number: [id number] MD: Julian Pitts M.D. Measurements Intervals Media Rate: 69 P: 0 UT: 0 QRS: 1 QRSD: 87 T: 1 QT: 319 QTc: 342 Interpretive Statements ATRIAL FIBRILLATION LOW QRS VOLTAGE IN PRECORDIAL LEADS [QRS DEFLECTION < 1.0 mV IN CHEST LEADS] NONSPECIFIC T-WAVE ABNORMALITY Compared to ECG 01/24/2025 02:23:42 Low QRS voltage now present T-wave abnormality now present Sinus rhythm no longer present Myocardial infarct finding no longer present Electronically Signed On 03-21-2025 13:12:38 WAISTBAND SETTER by Julian Pitts M.D. [email or web address]
--- OUTSIDE RECORDS SUMMARY | 2025-03-20 09:10 | XMS_ITS | Encounter Summary ---
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
--- OUTSIDE RECORDS SUMMARY | 2025-03-20 09:10 | XMS_ITS | Data Portability ---
Author Organization [facility]AN [facility] Address [address] [address] Care Team Providers Care Estimator Lumber Name Role Phone AMISHA GUERRA Primary Care Provider NATALIE Erazo Referring Provider [phone] Assessment Encounter Date Assessment Date Assessment LastModified by Organization Details LastModified Time 12/10/2024 12/10/2024 Patient here today for a check-up with her son. Overall she is doing well but she wishes she could stop shaking. Unfortunately the medication used for her for this caused heart rate issues. She is seeing Dr. Kelsey. Not available 12/10/2024 10:56:00 03/13/2025 03/13/2025 Patient here today for a check-up. Overall she has been doing okay. She continues to struggle with her memory. She would like to stop the shakes but there is nothing really that is safe for her to take. She follows with ENT, neurology, nephrology and cardiology. Not available 03/13/2025 10:51:52 Plan of Treatment Reminders Order Date Submit Date Provider Last Modified By Organization Details Last Modified Time Details Appointments RECHECK 2025 09:00A CEDRIC FRANK Not available Not available Not available Lab hemoglo bin A1C/hem oglobin total, QN, blood 2024 11 025 [facility], [address] [facility], [facility], [place], [address], 03/13/2025 12:46:27 CMP, serum or plasma 2024 025 [facility], [address], [place] [address], [place], [address], 03/13/2025 13:00:06 CBC 2024 025 [facility], [address], [place] [address], [place], [address], 03/13/2025 12:05:17 urinaly sis, complet e 2024 025 [facility], [address], [place] [address], [place], [address], 03/13/2025 13:43:59 culture , urine 2024 025 [facility], [address] [place] [address], [address], [place], [address], 03/14/2025 21:15:29 hemoglo bin A1C/hem oglobin total, QN, blood 2024 025 [facility], [address], [place] [address], [place], [address], 12/10/2024 11:12:52 culture , urine 2024 025 [facility], [address] [place] [address], [address], [place], [address], 10/30/2024 20:36:09 urinaly sis, dipstic k [address] [facility] ([facility]), [address] [place], [address], 10/29/2024 14:13:45 microal bumin/c reatini ne, mass ratio, urine 2024 025 [facility], [address] [place], [address], 10/11/2024 06:59:17 BMP, serum or plasma 2024 025 [facility]FF[facility]O [facility], [address], [place] [address], [place], [address], 10/07/2024 16:12:21 CBC - all labs ordered by [facility]/ will fax YF 2024 025 [facility], [address], [place] [address], [place], [address], 10/07/2024 15:33:46 magnesi um, serum or plasma 2024 025 [facility], [address] [facility], [place], [address], 10/08/2024 09:08:16 phospho baldo, serum or plasma 2024 025 [facility], [address], [place], [address], 10/08/2024 09:08:18 uric acid, serum or plasma 2024 025 [facility]con[facility], [address], [place], [address], 10/08/2024 09:08:19 protein , total, urine 2024 025 [facility] Financial [facility]con[facility], [address] [facility] [address], [address] [place], [address], 10/11/2024 06:59:18 urinaly sis, complet e 2024 025 [facility], [address], [place] [address], [place], [address], 10/08/2024 16:30:50 culture , urine 2024 025 [facility]con[facility], [address] [facility] [address], [address] [place], [address], 10/10/2024 23:00:41 vitamin D, 25-hydr oxy, total, serum 2024 025 [facility]con[facility], [address] [place], [address], 10/08/2024 09:08:21 albumin /globul in, ratio, serum [address] [facility] ([facility]), [address] [place], [address], 10/07/2024 16:11:46 PTH (parath yroid hormone ), intact, serum or plasma 2024 025 [facility], [address] [facility], [place], [address], 10/08/2024 09:08:20 Referral None recorde d. Procedures None recorde d. Surgeries None recorde d. Imaging None recorde d. Medication Orders Clariti n 10 mg tablet 2024 025 [facility], [address] [place] [address], [address], 03/14/2025 13:48:37 allopur inol 300 mg tablet 2024 025 [facility], [address] [place], [address], 03/14/2025 13:48:37 cefdini r 300 mg capsule 2024 025 [id number], [address], [address], 11/10/2024 05:00:50 Patient TargetsNo targets recorded. Patient Instructions Encounter Date Encounter Id Patient Instructions Last Modified By Organization Details Last Modified Time 12/10/2024 [id number] Call or return for questions or concerns. Not available 12/10/2024 10:56:04 03/13/2025 [id number] preventing falls : care instructions Not available 03/13/2025 11:03:25 well visit, over 65: care instructions Not available 03/13/2025 11:03:25 Call or return for questions or concerns. Not available 03/13/2025 10:50:43 Reason for Referral None Reported. Results Created Date Observation Date Name Description Value Unit Range Abnormal Flag Note LastModifiedBy Organization Detail LastModifiedTime 10/08/1910/07/2024 CBC WBC 7.8 x10 4.0-10 .5 Not Available [facility] [address], [place], [address], 10/07/2024 15:33:46 10/08/1910/07/2024 CBC RBC 4.21 x10 3.50-5 .50 Not Available [facility] [address] [place] [address], [place], [address], 10/07/2024 15:33:46 10/08/1910/07/2024 CBC HGB 12.9 g/dL 12.0-1 6.0 Not Available [facility] [address], [place], [address], 10/07/2024 15:33:46 10/08/1910/07/2024 CBC HCT 40.3 % 37.0-4 7.0 Not Available [facility] [address] [place] [address], [place], [address], 10/07/2024 15:33:46 10/08/1910/07/2024 CBC MCV 95.8 fL 80.0-9 9.9 Not Available [facility] [address] [facility] [address], [place], [address], 10/07/2024 15:33:46 10/08/19 25 10/07/2024 CBC MCH 30.7 pg 27.0-3 2.0 Not Available [facility] [address] [facility] 1, [place], [address], 10/07/2024 15:33:46 10/08/19 25 10/07/2024 CBC MCHC 32.1 g/dL 32.0-3 6.0 Not Available [facility] [address] [facility] 1, [place], [address], 10/07/2024 15:33:46 10/08/19 25 10/07/2024 CBC RDW 13.4 % 11.5-1 4.5 Not Available [facility] [address] [facility] [address], [place], [address], 10/07/2024 15:33:46 10/08/19 25 10/07/2024 CBC plt 227.9 x10 140.0- 451.0 Not Available [facility] [address] [facility] [address], [place], [address], 10/07/2024 15:33:46 10/08/19 25 10/07/2024 CBC lymphocytes % 29.3 % 20.0-5 0.0 Not Available [facility] [address] [facility] [address], [place], [address], 10/07/2024 15:33:46 10/08/19 25 10/07/2024 CBC granulcytes % 55.0 % 30.0-7 0.0 Not Available [facility] [address] [facility] Caitlin [facility] 1, [place], [address], 10/07/2024 15:33:46 10/08/19 25 10/07/2024 CBC monocytes % 12.2 % 2.0-16 .0 Not Available [facility] [address] [facility] [address] [facility] 1, [place], [address], 10/07/2024 15:33:46 10/08/19 25 10/07/2024 CBC granulcytes# 4.3 x10 Not Anabelle ilable [facility] [address] [facility] 1, [place], [address], 10/07/2024 15:33:46 10/08/19 25 10/07/2024 CBC lymphocytes # 2.3 x10 Not Available [facility] [address] [facility] 1, [place], [address], 10/07/2024 15:33:46 10/08/19 25 10/07/2024 CBC monocytes # 1.0 x10 Not Avai lable [facility] [address] [facility] [address], [place], [address], 10/07/2024 15:33:46 10/08/19 25 10/07/2024 BMP (FEMA LE) glucose 122.0 mg/dL 60.0-9 9.0 high Not Available [facility] [address] [facility], [place], [address], 10/07/2024 16:12:21 10/08/19 25 10/07/2024 BMP (FEMA LE) BUN (blood urea nitrogen) 17.0 mg/dL 10.0-2 6.0 Not Available [facility] [address] [facility] 1, [place], [address], 10/07/2024 16:12:21 10/08/19 25 10/07/2024 BMP (FEMA LE) creatinine (serum) 1.3 mg/dL 0.4-1. 5 Not Available [facility] [address] [facility] 1, [place], [address], 10/07/2024 16:12:21 10/08/19 25 10/07/2024 BMP (FEMA LE) BUN/creatini ne ratio 13.08 ratio Not Available [facility] [address] [facility] 1, [place], [address], 10/07/2024 16:12:21 10/08/19 25 10/07/2024 BMP (FEMA LE) calcium 10.1 mg/dL 8.4-10 .5 Not Available [facility] [address] [facility], [place], [address], 10/07/2024 16:12:21 10/08/19 25 10/07/2024 BMP (FEMA LE) sodium 142.0 mmol/ L 136.0- 145.0 Not Available [facility] [address] [facility], [place], [address], 10/07/2024 16:12:21 10/08/19 25 10/07/2024 BMP (FEMA LE) potassium 4.0 mmol/ L 3.5-5. 1 Not Available [facility] [address] [facility], [place], [address], 10/07/2024 16:12:21 10/08/19 25 10/07/2024 BMP (FEMA LE) chloride 107.0 mmol/ L 98.0-1 10.0 normal Not Available [facility] [address] [facility], [place], [address], 10/07/2024 16:12:21 10/08/19 25 10/07/2024 BMP (FEMA LE) C02 26.0 mmol/ L 22.0-3 1.0 Not Available [facility] [address] [facility] 1, [place], [address], 10/07/2024 16:12:21 10/08/19 25 10/07/2024 BMP (FEMA LE) anion gap 9.0 calc Not Available [facility] [address] [place] [address], [place], [address], 10/07/2024 16:12:21 10/09/19 25 10/08/2024 URINA LYSIS WITH MICRO color YELLOW Not Available [facility] [address] [place] [address], [place], [address], 10/08/2024 16:30:50 10/09/19 25 10/08/2024 URINA LYSIS WITH MICRO clarity CLOUDY Not Available [facility] [address] [place] [address], [place], [address], 10/08/2024 16:30:50 10/09/19 25 10/08/2024 URINA LYSIS WITH MICRO glu NEGATI VE Not Available [facility] [address] [place] [address], [place], [address], 10/08/2024 16:30:50 10/09/19 25 10/08/2024 URINA LYSIS WITH MICRO bili NEGATI VE Not Available [facility] [address] [place] [address], [place], [address], 10/08/2024 16:30:50 10/09/19 25 10/08/2024 URINA LYSIS WITH MICRO ket NEGATI VE Not Available [facility] [address] [place] [address], [place], [address], 10/08/2024 16:30:50 10/09/19 25 10/08/2024 URINA LYSIS WITH MICRO S.g >1.030 1.005- 1.025 high > Not Available [facility] [address] [place] [address], [place], [address], 10/08/2024 16:30:50 10/09/19 25 10/08/2024 URINA LYSIS WITH MICRO pH 5.5 5.0-7. 0 Not Available [facility] [address] [place] [address], [place], [address], 10/08/2024 16:30:50 10/09/19 25 10/08/2024 URINA LYSIS WITH MICRO pro NEGATI VE Not Available [facility] [address] [place] [address], [place], [address], 10/08/2024 16:30:50 10/09/19 25 10/08/2024 URINA LYSIS WITH MICRO uro 0.2 E.U./D L Not Available [facility] [address] [place] [address], [place], [address], 10/08/2024 16:30:50 10/09/19 25 10/08/2024 URINA LYSIS WITH MICRO nit NEGATI VE Not Available [facility] [address] [place] [address], [place], [address], 10/08/2024 16:30:50 10/09/19 25 10/08/2024 URINA LYSIS WITH MICRO blo NEGATI VE Not Available [facility] [address] [place] [address], [place], [address], 10/08/2024 16:30:50 10/09/19 25 10/08/2024 URINA LYSIS WITH MICRO noe NEGATI VE Not Available [facility] [address] [place] [address], [place], [address], 10/08/2024 16:30:50 10/09/19 25 10/08/2024 URINA LYSIS WITH MICRO WBC 3-4 Not Available [facility] [address] [place] [address], [place], [address], 10/08/2024 16:30:50 10/09/19 25 10/08/2024 URINA LYSIS WITH MICRO RBC NEGATI VE Not Available [facility] [address] [place] [address], [place], [address], 10/08/2024 16:30:50 10/09/19 25 10/08/2024 URINA LYSIS WITH MICRO epi cells 1-2 Not Available [facility] [address] [facility], [place], [address], 10/08/2024 16:30:50 10/09/19 25 10/08/2024 URINA LYSIS WITH MICRO bacteria 3+++ BACTER IA abnormal Not Available [facility] [address] [facility] [place] [address], [place], [address], 10/08/2024 16:30:50 10/09/19 25 10/08/2024 URINA LYSIS WITH MICRO other 4-6 CALCIU M OXALAT E NIYAH LS abnormal Not Available [facility] [address] [facility] [address], [place], [address], 10/08/2024 16:30:50 10/08/19 25 10/08/2024 MAGNE SIUM magnesium 1.8 mg/dL 1.5-2. 5 normal Not Available [facility] [address], [address], 10/08/2024 09:08:16 10/08/19 25 10/08/2024 PHOSP HATE ( PHOSP HORUS ) phosphate ( phosphorus) 3.2 mg/dL 2.1-4. 3 normal Not Available [facility] [address] [place], [address], 10/08/2024 09:08:18 10/08/19 25 10/08/2024 URIC ACID uric acid 8.5 mg/dL 2.5-7. 0 high Thera peuti c targe t for gout patie nts: <6.0 mg/dL Not Available [facility] [address] [place], [address], 10/08/2024 09:08:19 10/08/1910/08/2024 PTH, INTAC T WITHO UT CALCI UM parathyroid hormone, intact 80 pg/mL 16-77 high Inter preti ve Guide Intac t PTH Calci um ----- ----- ----- --- ----- ----- ----- -- Aimee l Parat hyroi d Aimee l Aimee l Hypop malini yroid ism Low or Low Aimee l Low Hyper parat hyroi dism Prima ry Aimee l or High High Secon kulwinder High Aimee l or Low Terti arnaldo High High Non-P malini yroid Hyper calce elvira Low or Low Aimee l High Not Available [facility] [address] [place], [address], 10/08/2024 09:08:20 10/08/19 25 10/08/2024 VITAM IN D,25- OH,TO SIMIN,I A vitamin D,25-oh,tota l,ia 63 NG/mL 30-100 normal Vitam in D Statu s 25-OH Vitam in D: Defic iency : <20 ng/mL Insuf ficie ncy: 20 - 29 ng/mL Optim al: > or = 30 ng/mL For 25-OH Vitam in D testi ng on patie nts on D2-choi pplem entat ion and patie nts for whom quant itati on of D2 and D3 fract ions is requi red, the [facility] eD(TM ) 25-OH VIT D, (D2,D 3), LC/MS /MS is recom avila d: order code 11756 (ace ents >2yrs ). See Note 1 Note 1 For addit ional infor osmin apodaca refer to http: //ariana Soto gnost ics.c om/fa q/FAQ 199 (This link is being provi ded for infor linwood tomas/ shira zuniga purpo ses only. ) Not Available [facility] [address] [place], [address], 10/08/2024 09:08:21 10/10/19 25 10/10/2024 CULTU RE, URINE , ROUTI NE culture, urine, routine SEE NOTE CULTU RE, URINE , ROUTI NE Micro Numbe r: [id number] Test Statu s: Final Speci men Sourc e: Urine Speci men Quali ty: Adequ ate Resul t: Mixed genit al francisco javier isola megan. These super ficia l bacte cam are not indic ative of a urina ry tract infec tion. No furth er organ ism ident ifica tion is warra nted on this speci men. If clini yuly indic ated, recol lect clean -catc h, mid-s tream urine and trans abdiaziz immed iatel y to Urine Cultu re Trans port Tube. Not Available [address] [address] [place], [address], 10/10/2024 23:00:41 10/10/19 25 10/11/2024 ALBUM IN, RANDO M URINE W/CRE ATINI NE creatinine, random urine 212 mg/dL 20-275 normal Not Available [address] [address] [place], [address], 10/11/2024 06:59:17 10/10/19 25 10/11/2024 ALBUM IN, RANDO M URINE W/CRE ATINI NE albumin, urine 5.8 mg/dL see note: normal Refer ence Range : Refer ence Range Not estab lishe d Not Available [address] [address] [place], [address], 10/11/2024 06:59:17 10/10/19 25 10/11/2024 ALBUM IN, RANDO M URINE W/CRE ATINI NE albumin/crea tinine ratio, random urine 27 mg/g_ creat <30 normal The ADA defin es abnor malit ies in album in excre tion as follo ws: Album inuri a Categ ory Resul t (mg/g creat inine ) Aimee l to Mildl y incre ased <30 Moder ately incre ased 30-29 9 Sever jin incre ased > OR = 300 The ADA recom mends that at least two of three speci mens colle cted withi n a 3-6 month perio d be abnor mal befor e consi irving g a patie nt to be withi n a diagn ostic categ ory. Not Available [facility] [address] [address] [place], [address], 10/11/2024 06:59:17 10/10/19 25 10/11/2024 URINE PROTE IN, TOTAL , RANDO M (W/O CREAT ININE ) protein, total, random ur 25 mg/dL 5-24 high Not Available [facility] [address] [address] [place], [address], 10/11/2024 06:59:18 10/16/19 25 10/15/2024 album in/gl obuli n, ratio , serum albumin 4.4 g/dL 3.5-5. 5 normal Not Available [facility] ([facility]) [address] [place] [address], [address], 10/07/2024 14:58:53 10/30/19 25 10/30/2024 CULTU RE, URINE , ROUTI NE culture, urine, routine SEE NOTE CULTU RE, URINE , ROUTI NE Micro Numbe r: [id number] Test Statu s: Final Speci men Sourc e: Urine , clean catch Speci men Quali ty: Adequ ate Resul t: Less than 10,00 0 CFU/m L of singl e Gram posit silvestre organ ism isola megan. No furth er testi ng will be perfo rmed. If clini yuly indic ated, recol lecti on using a metho d to minim ize conta minat ion, with promp t trans abdiaziz to Urine Cultu re Trans port Tube, is recom avila d. Not Available [facility] [address] [place], [address], 10/30/2024 20:36:09 10/30/19 25 10/29/2024 urina lysis , dipst ick Leukocytes Trace Not Available [facility] ([facility]) [address] [place], [address], 10/29/2024 13:56:16 10/30/19 25 10/29/2024 urina lysis , dipst ick Nitrite negati ve Not Available [facility] ([facility]) [address] [place], [address], 10/29/2024 13:56:16 10/30/19 25 10/29/2024 urina lysis , dipst ick Urobilinogen .2 Not Available [facility] ([facility]) [address] [place], [address], 10/29/2024 13:56:16 10/30/19 25 10/29/2024 urina lysis , dipst ick Protein Negati ve Not Available [facility] ([facility]) [address] [place], [address], 10/29/2024 13:56:16 10/30/19 25 10/29/2024 urina lysis , dipst ick pH 5.5 Not Available [facility] ([facility]) [address] [place], [address], 10/29/2024 13:56:16 10/30/19 25 10/29/2024 urina lysis , dipst ick Blood Negati ve Not Available [facility] ([facility]) [address] [place], [address], 10/29/2024 13:56:16 10/30/19 25 10/29/2024 urina lysis , dipst ick Specific [place] 1.030 Not Available [facility] ( [facility]) [address] [place], [address], 10/29/2024 13:56:16 10/30/19 25 10/29/2024 urina lysis , dipst ick Ketone Negati ve Not Available [facility] ([facility]) [address] [place], [address], 10/29/2024 13:56:16 10/30/19 25 10/29/2024 urina lysis , dipst ick Bilirubin Negati ve Not Available [facility] ([facility]) [address] [place], [address], 10/29/2024 13:56:16 10/30/19 25 10/29/2024 urina lysis , dipst ick Glucose Negati ve Not Available [facility] ([facility]) [address] [place], [address], 10/29/2024 13:56:16 12/04/19 25 12/10/2024 HBA1C hemaglobin A1C 6.6 4.2-6. 5 high Not Available [facility] [address] [facility] [address] [place] [address], [place], [address], 12/10/2024 11:12:52 03/13/2003/13/2025 CBC WBC 7.9 x10 4.0-10 .5 Not Available [facility] [address] [facility] [address] [place] [address], [place], [address], 03/13/2025 12:05:17 03/13/2003/13/2025 CBC RBC 4.27 x10 3.50-5 .50 Not Available [facility] [address] [facility] [address], [place], [address], 03/13/2025 12:05:17 03/13/20 25 03/13/2025 CBC HGB 12.6 g/dL 12.0-1 6.0 Not Available [facility] [address] [facility] [address] [place] [address], [place], [address], 03/13/2025 12:05:17 03/13/2003/13/2025 CBC HCT 39.3 % 37.0-4 7.0 Not Available [facility] [address] [facility] 1, [place], [address], 03/13/2025 12:05:17 03/13/2003/13/2025 CBC MCV 92.0 fL 80.0-9 9.9 Not Available [facility] [address] [facility], [place], [address], 03/13/2025 12:05:17 03/13/2003/13/2025 CBC MCH 29.5 pg 27.0-3 2.0 Not Available [facility] [address] [facility], [place], [address], 03/13/2025 12:05:17 03/13/2003/13/2025 CBC MCHC 32.0 g/dL 32.0-3 6.0 Not Available [facility] [address] [facility], [place], [address], 03/13/2025 12:05:17 03/13/20 25 03/13/2025 CBC RDW 14.6 % 11.5-1 4.5 high Not Available [facility] [address] [facility], [place], [address], 03/13/2025 12:05:17 03/13/2003/13/2025 CBC plt 255.9 x10 140.0- 451.0 Not Available [facility] [address] [facility] 1, [place], [address], 03/13/2025 12:05:17 03/13/2003/13/2025 CBC lymphocytes % 24.2 % 20.0-5 0.0 Not Available [facility] [address] [facility], [place], [address], 03/13/2025 12:05:17 03/13/20 25 03/13/2025 CBC granulcytes % 60.0 % 30.0-7 0.[address] [facility] [address] [facility] [address] [facility], [place], [address], 03/13/2025 12:05:17 03/13/20 25 03/13/2025 CBC monocytes % 10.3 % 2.0-16 .0 Not Available [facility] [address] [facility], [place], [address], 03/13/2025 12:05:17 03/13/2003/13/2025 CBC granulcytes# 4.8 x10 Not Anabelle ilable [facility] [address] [facility], [place], [address], 03/13/2025 12:05:17 03/13/2003/13/2025 CBC lymphocytes # 1.9 x10 Not Available [facility] [address] [facility], [place], [address], 03/13/2025 12:05:17 03/13/20 25 03/13/2025 CBC monocytes # 0.8 x10 Not Avai lable [facility] [address] [facility], [place], [address], 03/13/2025 12:05:17 03/13/2003/13/2025 HBA1C hemaglobin A1C 6.3 4.2-6. 5 Not Available [facility] [address] [facility], [place], [address], 03/13/2025 12:46:27 03/13/20 25 03/13/2025 CMP (FEMA LE) glucose 198.0 mg/dL 60.0-9 9.0 high Not Available [facility] [address] [facility], [place], [address], 03/13/2025 13:00:06 03/13/2003/13/2025 CMP (FEMA LE) BUN (blood urea nitrogen) 21.0 mg/dL 10.0-2 6.0 Not Available [facility] [address] [facility], [place], [address], 03/13/2025 13:00:06 03/13/2003/13/2025 CMP (FEMA LE) creatinine (serum) 1.5 mg/dL 0.4-1. 5 Not Available [facility] [address] [facility], [place], [address], 03/13/2025 13:00:06 03/13/2003/13/2025 CMP (FEMA LE) BUN/creatini ne ratio 14.00 ratio Not Available [facility] [address] [facility], [place], [address], 03/13/2025 13:00:06 03/13/2003/13/2025 CMP (FEMA LE) eGFR calculated 35.5 Not Available [facility] 8[address] [facility] 1, [place], [address], 03/13/2025 13:00:06 03/13/2003/13/2025 CMP (FEMA LE) total protein 8.5 g/dL 6.0-8. 5 Not Available [facility] [address] [facility] 1, [place], [address], 03/13/2025 13:00:06 03/13/2003/13/2025 CMP (FEMA LE) total bilirubin 0.8 mg/dL 0.2-1. 3 Not Available [facility] [address] [facility] 1, [place], [address], 03/13/2025 13:00:06 03/13/20 25 03/13/2025 CMP (FEMA LE) albumin 4.3 g/dL 3.5-5. 5 Not Available [facility] [place] [facility] [address] [facility], [place], [address], 03/13/2025 13:00:06 03/13/2003/13/2025 CMP (FEMA LE) globulin 4.2 calc Not Available [facility] [place] [facility] 8[address] [facility] 1, [place], [address], 03/13/2025 13:00:06 03/13/2003/13/2025 CMP (FEMA LE) AST (SGOT) 86.0 U/L 0.0-46 .0 high Not Available [facility] [place] [facility] 8[address] [facility] 1, [place], [address], 03/13/2025 13:00:06 03/13/2003/13/2025 CMP (FEMA LE) altv (SGPT) 63.0 U/L 13.0-6 9.0 normal Not Available [facility] [place] [facility] 805 [facility], [place], [address], 03/13/2025 13:00:06 03/13/20 25 03/13/2025 CMP (FEMA LE) A/G ratio 1.0 ratio Not Available [facility] 8[address] [facility] 1, [place], [address], 03/13/2025 13:00:06 03/13/2003/13/2025 CMP (FEMA LE) ALP phos 64.0 U/L 30.0-1 40.0 normal Not Available [facility] [place] [facility] 805 [facility], [place], [address], 03/13/2025 13:00:06 03/13/2003/13/2025 CMP (FEMA LE) calcium 10.7 mg/dL 8.4-10 .5 high Not Available [facility] [place] [facility] 8[address] [facility] 1, [place], [address], 03/13/2025 13:00:06 03/13/2003/13/2025 CMP (FEMA LE) sodium 141.0 mmol/ L 136.0- 145.0 Not Available [facility] [place] [facility] 8[address] [facility] 1, [place], [address], 03/13/2025 13:00:06 03/13/2003/13/2025 CMP (FEMA LE) potassium 4.4 mmol/ L 3.5-5. 1 Not Available [facility] [place] [facility] 8[address] [facility] 1, [place], [address], 03/13/2025 13:00:06 03/13/2003/13/2025 CMP (FEMA LE) chloride 101.0 mmol/ L 98.0-1 10.0 normal Not Available [facility] [place] [facility] 8[address] [facility] 1, [place], [address], 03/13/2025 13:00:06 03/13/2003/13/2025 CMP (FEMA LE) C02 27.0 mmol/ L 22.0-3 1.0 Not Available [facility] [place] [facility] 8[address] [facility] 1, [place], [address], 03/13/2025 13:00:06 03/13/2003/13/2025 CMP (FEMA LE) anion gap 13.0 calc Not Available [facility] 805 [facility] 1, [place], [address], 03/13/2025 13:00:06 03/13/2003/13/2025 CMP (FEMA LE) osmolality 298.9 calc Not Available [facility] [place] [facility] [address] [place], [address], 03/13/2025 13:00:06 03/13/2003/13/2025 URINA LYSIS WITH MICRO color DARK YELLOW Not Available [facility] [address] [facility] [place] 1, [place], [address], 03/13/2025 13:43:58 03/13/2003/13/2025 URINA LYSIS WITH MICRO clarity CLOUDY Not Available [facility] [address] [facility] [place] [address], [place], [address], 03/13/2025 13:43:58 03/13/2003/13/2025 URINA LYSIS WITH MICRO glu NEGATI VE Not Available [facility] [address] [facility] 1, [place], [address], 03/13/2025 13:43:58 03/13/2003/13/2025 URINA LYSIS WITH MICRO bili NEGATI VE Not Available [facility] [address] [facility] 1, [place], [address], 03/13/2025 13:43:58 03/13/2003/13/2025 URINA LYSIS WITH MICRO ket TRACE Not Available [facility] [address] [facility] 1, [place], [address], 03/13/2025 13:43:58 03/13/2003/13/2025 URINA LYSIS WITH MICRO S.g 1.030 1.005- 1.025 high Not Available [facility] [place] [facility] [address] [facility] 1, [place], [address], 03/13/2025 13:43:58 03/13/20 25 03/13/2025 URINA LYSIS WITH MICRO pH 5.5 5.0-7. 0 Not Available [facility] [place] [facility] [address] Caitlin [facility] 1, [place], [address], 03/13/2025 13:43:58 03/13/2003/13/2025 URINA LYSIS WITH MICRO pro 1+ Not Available [facility] [address], [place], [address], 03/13/2025 13:43:58 03/13/2003/13/2025 URINA LYSIS WITH MICRO uro 0.2 E.U./D L Not Available [facility] [address], [place], [address], 03/13/2025 13:43:58 03/13/2003/13/2025 URINA LYSIS WITH MICRO nit NEGATI VE Not Available [facility] [address], [place], [address], 03/13/2025 13:43:58 03/13/2003/13/2025 URINA LYSIS WITH MICRO blo 3+ Not Available [facility] [address], [place], [address], 03/13/2025 13:43:58 03/13/2003/13/2025 URINA LYSIS WITH MICRO noe TRACE Not Available [facility] [address], [place], [address], 03/13/2025 13:43:58 03/13/2003/13/2025 URINA LYSIS WITH MICRO WBC 8-10 Not Available [facility] [address], [place], [address], 03/13/2025 13:43:58 03/13/2003/13/2025 URINA LYSIS WITH MICRO RBC 30-40 Not Available [facility] [address], [place], [address], 03/13/2025 13:43:58 03/13/20 25 03/13/2025 URINA LYSIS WITH MICRO epi cells 10-12 Not Available [facility] [address] Caitlin [facility] 1, [place], [address], 03/13/2025 13:43:58 03/13/20 25 03/13/2025 URINA LYSIS WITH MICRO bacteria 1+ MIXED FRANCISCO JAVIER Not Available [facility] [address] Caitlin [facility] 1, [place], [address], 03/13/2025 13:43:58 03/13/20 25 03/13/2025 URINA LYSIS WITH MICRO other NEGATI VE Not Available [facility] [address] Caitlin [facility] 1, [place], [address], 03/13/2025 13:43:58 03/13/20 25 03/14/2025 CULTU RE, URINE , ROUTI NE culture, urine, routine SEE NOTE CULTU RE, URINE , ROUTI NE Micro Numbe r: [id number] Test Statu s: Final Speci men Sourc e: Urine Speci men Quali ty: Adequ ate Resul t: Mixed genit al francisco javier isola megan. These super ficia l bacte cam are not indic ative of a urina ry tract infec tion. No furth er organ ism ident ifica tion is warra nted on this speci men. If clini yuly indic ated, recol lect clean -catc h, mid-s tream urine and trans abdiaziz immed iatel y to Urine Cultu re Trans port Tube. Not Available [facility] [address], [place], [address], 03/14/2025 21:15:28 Result Notes None recorded. Problems Name Problem SNOMED Code Status Onset Date Resolution Date Notes Provider Name and Address Organization Details Recorded Time Benign essential hypertensio n 1270721 Active IAN Hernández - [facility] L[facility]CNadine 12:42:58 Blood pressure above reference range 66845767 Active JEFFY LEY [facility], [facility] 5 14:52:36 Hypertrigly ceridemia 202643306 Active [facility] 5 14:52:36 Mycosis 6698041 Active [facility] 14:52:36 Dyslipidemi a 198443377 Active JEFFY LEY [facility] 5 14:52:36 Biliary colic 79444635 Active PHILIP JEFFY [facility] 4 12:43:08 Hypertensiv e disorder 53594228 Active AMISHAMara GUERRA, [address], [address], [facility] 5 10:48:16 Dizziness [id number] [facility] AMISHAMara GUERRA, [address], [address], [facility] 5 10:48:16 Herpes zoster [id number] [facility]Y [facility] 5 14:52:36 Bradycardia 51131689 Active PHILIP JEFFY [facility] 4 12:43:11 Atrial fibrillatio n 20782409 Active AMISHA GUERRA, [address], [address], [facility] 5 10:48:16 Coronary arterioscle rosis 30996483 Active PHILIP JEFFY [facility] 4 12:43:19 Dyspnea on exertion 53186398 Active JEFFY styles, [facility] 5 14:52:36 Essential tremor 658888593 Active AMISHA GUERRA, [address], [address] [place] [address] 5, [facility] 5 10:48:16 Palpitation s 31059829 Active JEFFY JIL styles, [facility] 5 14:52:36 Gout 44785027 Active JEFFY LEYSTEVEN [facility] 5 14:52:36 Benign hypertensio n 36555164 Active PHILIP BARDALES [facility] 4 12:43:02 Asthenia 89526122 Active AMISHA GUERRA, [address], [address] [place] [address] 5, [facility] 5 10:48:16 Metabolic encephalopa thy 44249007 Active JEFFY LEY [facility] 5 14:52:36 Urinary tract infectious disease 58702745 Active AMISHA GUERRA, [address], [address] [place] [address] 5, [facility] 5 10:48:16 Lactic acidosis 34922489 Active [facility] 5 14:52:36 Chest pain [id number] Selina GUERRA, [address], [address] [place] [address] 5, [facility] 5 10:48:16 Benign paroxysmal positional vertigo 382446258 Active AMISHA GUERRA, [address], [address] [place] [address] 5, [facility] 5 10:48:16 Labyrinthit is 11530371 Active JEFFY [facility] 5 14:52:36 Disturbance of consciousne ss 7276084 Active [facility] 5 14:52:36 Vertigo 453072162 Active JEFFY [facility] 5 14:52:36 Altered mental status 308840130 , L.L.C. 5 14:50:27 Hypertensiv e urgency 101767013 Active [facility] 5 14:52:36 Amnesia 08964397 , L.L.C. 5 14:52:36 Objective vertigo 44079788 , L.L.C. 5 14:52:36 Reactive airway disease 877581658082 , L.L.C. 5 14:52:36 Near syncope 492783481 Active AMISHA GUERRA, [address], [address], [facility] 5 10:48:16 Sepsis 68063795 Active AMISHA GUERRA, [address], [address], [facility] 5 10:44:32 Sprain of left ankle 4412921969066 9105 Active AMISHA GUERRA, [address], [address], [facility] 10:46:10 Headache [id number] Selina GUERRA, [address], [address] [place] [address] 5, [facility] 5 10:48:16 Acute urinary tract infection [id number] Selina GUERRA, [address], [address] [place] [address] 5, [facility] 10:46:10 Acute labyrinthit is 9456327509726 03 Active AMISHA GUERRA, [address], [address], [facility] 10:46:10 Adjustment disorder with anxious mood [id number] Selina GUERRA, [address], [address] [place] [address], [facility] 10:46:10 Anxiety 44993011 Selina GUERRA, [address], [address] [place] [address], [facility] 10:46:10 Acute cystitis 91993180 Selina GUERRA, [address], [address] [place] [address], [facility] 10:46:10 Acute kidney injury [id number] Selina GUERRA, [address], [address] [place] [address], [facility] 10:41:33 Hypomagnese elvira [id number] Selina GUERRA, [place] [address], [place] [facility] 5 10:41:33 Syncope 425122330 Active AMISHA GUERRA, [address], [address] [place] [address] 5, [facility] 5 10:41:33 Syncope and collapse 623773483 Active AMISHA GUERRA, [address], [address] [place] [address] 5, [facility] 5 10:41:33 Dizziness of unknown cause 819742785 Active AMISHA GUERRA, [address], [address] [place] [address] 5, [facility] 5 10:41:33 Lactic acid level above reference range 4523897 Active AMISHA GUERRA, [address], [address] [place] [address] 5, [facility] 5 10:41:33 History of cholecystec nader 458726608 Active 2019 JEFFY styles, [facility] 5 14:52:36 Essential hypertensio n 13393058 Active 2023 PHILIP styles [facility] 4 17:51:41 Cardiomegal y 5754889 Active 2023 mild PHILIP styles [facility] 4 17:56:13 Atrial fibrillatio n with rapid ventricular response 6800273773339 09 Active 2023 AMISHA GUERRA, [address], [address], [facility] 5 10:48:16 Type 2 diabetes mellitus 95952222 Active 2024 AMISHA GUERRA, [facility] [address] [place], [address], [facility], Alec 19:26:52 Parkinson's disease 73817298 Active 2024 AMISHA GUERRA, [address], [address], [facility], Alec 19:28:20 Congestive heart failure 63338549 Active 2024 AMISHA GUERRA, [address], [address], [facility], Alec 19:29:24 Chronic kidney disease stage 3 383438918 Active 2024 AMISHA GUERRA, [address], [address], [facility], Alec 19:32:28 Problem Notes None recorded. Procedures Surgical History Date Name Laterality Status Provider Name and Address Organization Details Recorded Time 01/24/20 25 plain X-ray of chest completed [facility], [facility]c 01/24/2025 15:14:07 01/24/[address] [facility] 01/24/2025 15:14:57 08/15/19 25 plain [facility] 08/19/2024 09:37:52 04/21/[address] [facility] 04/24/2024 14:38:54 01/09/20 24 plain [facility] 01/09/2024 18:48:47 01/09/[address] of head completed [facility] 01/09/2024 18:49:46 01/09/20 24 procedure on neck completed [facility] 01/09/2024 18:52:29 11/18/19 24 plain X-ray of chest completed [facility] 11/22/2023 19:57:57 11/02/19 24 plain X-ray of chest completed [facility] 11/02/2023 17:49:11 11/02/[address] of head completed [facility] 11/02/2023 17:50:27 07/29/19 24 plain X-ray of chest completed [facility] 08/01/2023 17:22:55 07/29/[address] of head completed [facility] 08/22/2023 17:24:25 07/28/19 24 plain X-ray of chest completed [facility] 08/22/2023 17:22:37 04/21/20 23 plain X-ray of chest completed [facility] 05/17/2023 12:28:28 03/27/20 23 duplex ultrasonography of carotid artery completed [facility] 03/28/2023 16:10:21 03/27/20 23 Doppler ultrasonography of venous structure of limb completed [facility] 03/28/2023 16:11:27 cholecystostomy completed [facility] 08/12/2024 14:48:54 Imaging Results None recorded. Procedure Notes None recorded. Medical Equipment None Reported. Allergies Allergen ID Allergen Name Allergen Category Reaction Reaction Severity Criticality Documentation Date Start Date Code Code System Note Provider Name and Address Organization Details Recorded Time 30680 lisinopri l medicatio n Not available Not available Not available 11/29/20232024 77830 RxNorm AMISHA GUERRA, [facility] [address] [place], [address], [facility] 5 10:48:03 Medications Name Sig Start Date Stop Date Status Note LastModified by Organization Details LastModified Time losartan 50 mg tablet TAKE 1 TABLET BY MOUTH EVERY DAY active Not Available Not Available No t Available buspirone 5 mg tablet TAKE 1 TABLET BY MOUTH TWICE DAILY FOR 30 DAYS active Not Available Not Available No t Available hydralazi ne 10 mg tablet TAKE 1 TABLET BY MOUTH TWICE DAILY 08/12 completed Not Available Not Available Not Available primidone 50 mg tablet TAKE 2 TABLETS BY MOUTH AT BEDTIME 03/18 completed Not Available Not Available Not Available clonidine HCl 0.1 mg tablet TAKE 1 TABLET BY MOUTH EVERY 8 HOURS NEEDED FOR HIGH BLOOD PRESSURE FOR systolic greater THAN 185 or diastoli c greater THAN 105 12/08 completed Not Available Not Available Not Available doxycycli ne hyclate 100 mg capsule TAKE 1 CAPSULE BY MOUTH TWICE A DAY 03/14 completed Not Available Not Available Not Available cefuroxim e axetil 250 mg tablet Take 1 tablet twice a day by oral route for 5 days, for UTI. 2024 active Not Available Not Available Not Avai lable atorvasta tin 20 mg tablet TAKE 1 TABLET BY MOUTH ONCE DAILY 2024 active Not Available Not Available Not Avai lable donepezil 5 mg tablet TAKE ONE TABLET BY MOUTH ONCE DAILY 10/05 completed Not Available Not Available Not Available ketoconaz ole 2 % shampoo 2024 active Not Available Not Available Not Avai lable azithromy sammy 250 mg tablet TAKE 2 TABLETS BY MOUTH TODAY, THEN TAKE 1 TABLET DAILY FOR 4 DAYS DIRECTED 10/16 completed Not Available Not Available Not Available amiodaron e 200 mg tablet TAKE 1 TABLET BY MOUTH EVERY DAY active Not Available Not Available No t Available Claritin 10 mg tablet Take 1 tablet every day by oral route for 90 days. 2024 active Not Available Not Available Not Avai lable donepezil 10 mg tablet TAKE 1 TABLET BY MOUTH EVERY DAY active Not Available Not Available No t Available Flonase 50 mcg/DOSE nasal inhaler as needed 12/19 completed 0; Recorded 06/23/19 23 2:53PM by Cheyanne Hough, Office Visit; Not Available Not Available Not Available prednison e 20 mg tablet TAKE 1 TABLET BY MOUTH EVERY DAY FOR 5 DAYS 03/14 completed Not Available Not Available Not Available hydralazi ne 25 mg tablet TAKE 1 TABLET BY MOUTH TWICE DAILY active Not Available Not Available No t Available meclizine 12.5 mg tablet 12.5 mg by oral route. 2024 active Not Available Not Available Not Avai lable chlorthal idone 25 mg tablet TAKE 1 TABLET BY MOUTH EVERY DAY active Not Available Not Available No t Available fexofenad ine 180 mg tablet TAKE 1 TABLET BY MOUTH EVERY DAY 10/16 completed Not Available Not Available Not Available triamcino lone acetonide 0.1 % topical cream apply thin layer with q-tip TO both ears TWICE DAILY NEEDED. no more THAN TWO weeks PER MONTHS. not FOR USE ON face, groin or SKIN folds. MAY alternat e with ketocona zole active Not Available Not Available No t Available isosorbid e mononitra te ER 60 mg tablet,ex tended release 24 hr 60 mg by oral route. 2024 active Not Available Not Available Not Avai lable alprazola m 0.5 mg tablet TAKE 1 TABLET BY MOUTH TWICE DAILY NEEDED FOR stress FOR 30 DAYS active Not Available Not Available No t Available ofloxacin 0.3 % ear drops INSTILL FOUR DROPS into both ears TWICE DAILY for 7 days 12/08 completed Not Available Not Available Not Available methenami ne hippurate 1 gram tablet TAKE 1 TABLET BY MOUTH TWICE DAILY 12/08 completed Not Available Not Available Not Available lorazepam 0.5 mg tablet TAKE 1 TABLET BY MOUTH TWICE DAILY NEEDED 12/08 completed Not Available Not Available Not Available meclizine 25 mg tablet TAKE 1 TABLET BY MOUTH THREE TIMES DAILY NEEDED FOR dizzines s 08/12 completed Not Available Not Available Not Available triamcino lone acetonide 0.1 % topical ointment 01/15 completed Not Available Not Available Not Available propranol ol ER 80 mg capsule,2 4 hr,extend ed release Take 1 capsule every day by oral route. 01/15 completed Not Available Not Available Not Available carbidopa 10 mg-levodo pa 100 mg tablet TAKE 1 TABLET BY MOUTH TWICE DAILY 03/18 completed Not Available Not Available Not Available irbesarta n 75 mg tablet TAKE 1 TABLET BY MOUTH EVERY DAY 10/05 completed Not Available Not Available Not Available hydrocort isone 2.5 % topical cream APPLY TWICE DAILY TO RED/THIC KENED RASH AND PLAQUES ON FACE NEEDED. NO MORE THAN TWO WEEKS PER MONTH 12/08 completed Not Available Not Available Not Available allopurin ol 300 mg tablet Take 1 tablet every day by oral route for 90 days. 2024 active Not Available Not Available Not Avai lable mupirocin 2 % topical ointment apply TO open areas TWICE DAILY NEEDED UNTIL HEALED active Not Available Not Available No t Available furosemid e 20 mg tablet TAKE 1 TABLET BY MOUTH EVERY DAY 2023 active Not Available Not Available Not Avai lable irbesarta n 150 mg tablet TAKE 1 TABLET BY MOUTH EVERY DAY 06/05 completed Not Available Not Available Not Available estradiol 0.01% (0.1 mg/gram) vaginal cream 2024 active Not Available Not Available Not Avai lable levofloxa sammy 750 mg tablet Take 1 tablet every day by oral route for 5 days, for UTI. 02/12 completed Not Available Not Available Not Available Nasal Decongest ant (pseudoep hedrine) 30 mg tablet TAKE 2 TABLETS BY MOUTH 3 TIMES DAILY NEEDED FOR CONGESTI ON 09/27 completed Not Available Not Available Not Available propranol ol 20 mg tablet 30 mg by oral route. 2024 active Not Available Not Available Not Avai lable carbidopa 25 mg-levodo pa 100 mg tablet 1 tablet by oral route. 2024 active Not Available Not Available Not Avai lable ketoconaz ole 2 % topical cream apply TWICE DAILY TO both corners of MOUTH NEEDED FOR flares active Not Available Not Available No t Available clobetaso l 0.05 % scalp solution apply TO red/itch y plaques ON SCALP TWICE DAILY NEEDED active Not Available Not Available No t Available cefdinir 300 mg capsule Take 1 capsule every 12 hours by oral route for 5 days. 11/10 completed Not Available Not Available Not Available fluticaso ne propionat e 50 mcg/actua tion nasal spray,charles pension USE 2 SPRAYS IN EACH NOSTRIL EVERY DAY 12/08 completed Not Available Not Available Not Available amoxicill in 875 mg-potass ium clavulana te 125 mg tablet TAKE 1 TABLET BY MOUTH EVERY TWELVE HOURS for 7 days 09/04 completed Not Available Not Available Not Available amoxicill in 500 mg-potass ium clavulana te 125 mg tablet TAKE 1 TABLET BY MOUTH THREE TIMES A DAY FOR 10 DAYS 09/27 completed Not Available Not Available Not Available Ventolin HFA 90 mcg/actua tion aerosol inhaler INHALE TWO PUFFS BY MOUTH EVERY 6 HOURS NEEDED FOR asthma FOR 30 DAYS active Not Available Not Available No t Available neomycin- polymyxin -hydrocor t 3.5 mg-10,000 unit/mL-1 % ear drops,charles p INSTILL 4 DROPS INTO AFFECTED EAR(S) 3 TIMES A DAY 10/16 completed Not Available Not Available Not Available ciproflox acin 0.3 %-dexamet hasone 0.1 % ear drops,charles pension INSTILL FOUR DROPS TWICE DAILY for 7 days 09/04 completed Not Available Not Available Not Available potassium chloride ER 10 mEq tablet,ex tended release(p art/cryst ) active Not Available Not Available Not Available nitrofura ntoin monohydra te/macroc rystals 100 mg capsule take 1 capsule BY MOUTH TWICE DAILY with food active Not Available Not Available No t Available atorvasta tin daily 12/19 completed 53550; Recorded 04/14/20 22 12:02PM by Philip Bardales CMT (Dejah salmon through [facility]), Refill Request; Mail Order Quantity : 90 Tablet; Mail Order Days: 90 Days; Refill Quantity : 0; Not Available Not Available Not Available propranol ol daily 12/19 completed 0; Recorded 06/23/19 23 2:53PM by Cheyanne Hough, Office Visit; Not Available Not Available Not Available irbesarta n at bedtime 12/19 completed 0; Recorded 06/23/19 2:53PM by Cheyanne Hough, Office Visit; Not Available Not Available Not Available furosemid e as needed 01/04 completed 0; Recorded 06/23/19 2:53PM by Cheyanne Hough, Office Visit; Not Available Not Available Not Available hydrocort isone 01/04 completed 0; Recorded 06/23/19 2:53PM by Cheyanne Hough, Office Visit; Not Available Not Available Not Available Potassium Chloride ER daily 01/04 completed 0; Recorded 06/23/19 2:53PM by Cheyanne Hough, Office Visit; Not Available Not Available Not Available Symbicort 160 mcg-4.5 mcg/actua tion HFA aerosol inhaler INHALE TWO PUFFS BY MOUTH TWICE DAILY FOR 30 DAYS active Not Available Not Available No t Available cholecalc iferol (vitamin D3) 1,250 mcg (50,000 unit) capsule take 1 capsule BY MOUTH every week active Not Available Not Available No t Available Xarelto 20 mg tablet TAKE 1 TABLET BY MOUTH EVERY DAY active Not Available Not Available No t Available Vascepa 1 gram capsule take 1 capsule BY MOUTH EVERY DAY active Not Available Not Available No t Available Vitamins Plus Low Iron 27 mg iron-1 mg tablet TAKE 1 TABLET BY MOUTH EVERY DAY active Not Available Not Available No t Available losartan potassium (bulk) daily 12/19 completed Recorded 06/23/19 2:53PM by Cheyanne Hough, Office Visit; Mail Order Quantity : 90 Tablet; Mail Order Days: 90 Days; Refill Quantity : 0; Not Available Not Available Not Available Vitals Date Recorded Body height Body mass index (BMI) Body weight Oxygen saturation Oxygen saturation in Arterial blood by Pulse oximetry Heart rate Respiratory rate Body temperature Systolic And Diastolic Provider Name and Address Organization Details Last Updated DateTime 5 157.48 cm 41.2 kg/m2 999915. 28 g 94 % 94 % 90 /min 18 /min 98.2 [degF] 166/90 mm[Hg] Jenny Franks [facility] 14:02:43 Date Recorded Body height Body mass index (BMI) Body weight Oxygen saturation Oxygen saturation in Arterial blood by Pulse oximetry Heart rate Respiratory rate Systolic And Diastolic Provider Name and Address Organization Details Last Updated DateTime 5 157.48 cm 41.2 kg/m2 561258. 28 g 94 % 94 % 80 /min 22 /min 146/72 mm[Hg] PHILIP BARDALES [facility] 10:10:41 Date Recorded Body height Body mass index (BMI) Body weight Oxygen saturation Oxygen saturation in Arterial blood by Pulse oximetry Heart rate Respiratory rate Systolic And Diastolic Provider Name and Address Organization Details Last Updated DateTime 5 157.48 cm 41.2 kg/m2 167037. 28 g 95 % 95 % 82 /min 22 /min 138/68 mm[Hg] PHILIP BARDALES [facility] 5 10:22:27 Social History Question Answer Notes LastModified by vivio Details LastModified Time Tobacco Smoking Status Never Smoker PHILIP BARDALES [facility] 01/04/2023 12:21:22 What Was The Date Of Your Most Recent Tobacco Screening? 10/29/2024 [email or web address] Information not available 10/29/2024 Sex: Unknown Functional Status Question Answer Note LastModified by vivio Details LastModified Time Do you use any illicit or recreational drugs? No Information not available 01/04/2023 What is your level of alcohol consumption? None [email or web address] Information not available 01/04/2023 Mental Status None recorded. Family History Relationship Description Onset Age of this Age Resolved Age Notes LastModified by Organization Details LastModified Time Mother Cerebrovascu lar accident [email or web address] Not available 17:54:19 Mother Type 2 diabetes mellitus [email or web address] Not available 11/01 17:54:50 Father Myocardial infarction age 62 [email or web address] Not available 11/02/2023 17:55:36 Father Malignant neoplasm of colon Not available 09/04 12:10:24 Medical History Condition Response Heart Problems Y Hypertension Y High Cholesterol Y Gynecological HistoryNo gynecological history recorded. Obstetrics History GPAL:G 0 P 0 0 0 0 Immunizations Vaccine Type Date Status Note Provider Nam e and Address Organization Details Recorded Time Influenza, adjuvanted, trivalent, PF 5 completed [facility] 03/13/2025 11:28:30 Influenza, split virus, quadrivalent, PF 4 completed AMISHA GUERRA, [address], [address] [place] [address], [facility] 04/19/2024 12:39:02 COVID-19, mRNA, LNP-S, PF, 50 mcg/0.5 mL 3 completed AMISHA GUERRA, [address], [facility] 06/05/2024 15:08:09 COVID-19, mRNA, LNP-S, PF, 100 mcg/0.5mL dose or 50 mcg/0.25mL dose 1 completed AMISHA GUERRA[address], [address], [facility] 03/13/2025 10:46:13 COVID-19, mRNA, LNP-S, PF, 100 mcg/0.5mL dose or 50 mcg/0.25mL dose 1 completed AMISHA GUERRA, [place] [address], [facility] 03/13/2025 10:46:14 COVID-19, mRNA, LNP-S, PF, 100 mcg/0.5mL dose or 50 mcg/0.25mL dose 1 completed AMISHA GUERRA [address] [address], [facility] 03/13/2025 10:46:14 COVID-19, mRNA, LNP-S, bivalent, PF, 50 mcg/0.5 mL or 25mcg/0.25 mL dose 2 completed AMISHA GUERRA, [address], [address], [facility] 10/04/2022 07:54:30 Tdap 1 completed AMISHA GUERRA, [address], [address], [facility] 10/04/2022 07:54:30 Pneumococcal conjugate PCV 13 7 completed AMISHA GUERRA, [address], [address], [facility] 03/13/2025 10:46:14 Influenza, high-dose, trivalent, PF 9 completed AMISHA GUERRA, [address], [address], [facility] 10/04/2022 07:54:30 Influenza, split virus, trivalent, preservative 0 completed AMISHA GUERRA, [address], [address], [facility] 10/04/2022 07:54:30 Influenza, split virus, trivalent, preservative 2 completed AMISHA GUERRA, [address], [address], [facility] 10/04/2022 07:54:30 Influenza, split virus, trivalent, preservative 4 completed AMISHA GUERRA, [address], [address], [facility] 10/04/2022 07:54:30 Influenza, split virus, trivalent, PF 5 completed AMISHA GUERRA, [address], [address], [facility] 10/04/2022 07:54:30 Hep B, adult 4 completed AMISHA GUERRA, [address], [address], [facility] 10/04/2022 07:54:30 Hep B, adult 3 vandana GUERRA, [address], [address], [facility] 10/04/2022 07:54:30 Hep B, adult 3 vandana GUERRA, [address], [address], [facility] 10/04/2022 07:54:30 Hep A, adult 4 vandana GUERRA, [address], [address], [facility] 10/04/2022 07:54:30 Hep A, adult 1 vandana GUERRA, [address], [address], [facility] 03/13/2025 10:46:14 Influenza, split virus, quadrivalent, PF 1 vandana GUERRA, [address], [address], [facility] 03/13/2025 10:46:14 Past Encounters Encounter ID Performer Location Encounter Start Date Encounter Closed Date Diagnosis/Indication Diagnosis SNOMED-CT Code Diagnosis ICD10 Code Diagnosis IMO Codes Diagnosis Note [id number] CEDRIC GARCIA [facility] ([facility]) [address] [place] [id number] 5 09/27/2022 15:55:15 09/27/2022 20:01:04 Adult health examination 747670246 Z00.00 Screening for malignant neoplasm of colon 850603249 Z12.11 Morbid obesity 892109294 E66.01 Discussed diet and exercise. 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 Chronic at rial fibrillation 237035698 I48.20 [id number] Curry Simmons MD [facility] ([facility]) [address] [place] [address]13[address]886 5 12/19/2022 10:19:42 12/19/2022 19:51:58 Allergic rhinitis 00956479 J30.9 Exam is more consistent with allergies. We will add loratadine . The patient was instructed to increase her Flonase to 2 sprays each nostril daily. [id number] CEDRIC GARCIA [facility] ([facility]) [address] [place] [address] 5 01/04/2023 10:14:46 02/22/2023 12:05:53 Atrial fibrillation 33836591 I48.91 Hyperglycemia 62376241 R 73.9 Asthma 117783309 J45.90 9 [id number] Curry Simmons MD [facility] ([facility]) [address] [place] [address] 5 01/24/2023 10:39:16 01/24/2023 11:19:40 Bronchitis 18016260 J40 Today's exam concerned about bronchitis and likely will need an antibiotic and steroid to help manage her symptoms and disease. Allergic rhinitis 450121 04 J30.9 Patient likely still has some underlying allergies but the loratadine does not seem to be effective so we will transition to Teresa. [id number] CEDRIC GARCIA [facility] ([facility]) [address] [place] [address]662 5 03/14/2023 15:31:54 03/14/2023 17:41:50 Atrial fibrillation 10079379 I48.91 She has an appt with Dr. Matamoros on 03/27. Essential hypertension 80834052 I10 Swelling of lower leg 44 2344704 R22.42 Intermitte nt confusion 318168568 R41.0 Adult heal th examination 613914449 Z00.00 Patient says she notices she doesn't have any outside activities . Chronic ki dney disease 158016593 N18.30 Most recent GFR 64. Angina pectoris 02499142 0 I20.9 2 recent ER visits for this, follow-up scheduled with Dr. Matamoros in 2 weeks. Chronic co ngestive heart failure 01543120 I50.9 Lower extremity swelling today. Left worse than right. [id number] CEDRIC GARCIA [facility] ([facility]) [address] [place] [address] 18068-117 5 03/27/2023 11:02:08 03/27/2023 15:42:31 [id number] CEDRIC GARCIA [facility] ([facility]) [address] [place] [address]7540-[address] 5 06/15/2023 13:28:36 06/16/2023 09:58:10 Memory impairment 443379878 R41.3 Essential tremor 1524916 09 G25.0 Long-term drug therapy 745718363 Z79.759 [id number] RANDY ELIAS PA-C [facility] ([facility]) [address] [place] [address] [id number] 5 10/06/2023 09:46:56 10/06/2023 11:30:10 Seborrheic dermatitis 89519141 L21.9 Parkinson's disease 4904 9000 G20.A1 Acute otitis externa 302 96130 H60.509 Acute sinusitis 57099973 J01.90 [id number] CEDRIC GARCIA [facility] ([facility]) [address] [place] [address] 72236[address]934 5 10/17/2023 14:44:58 10/17/2023 17:46:25 Parkinson's disease 52884840 G20.A1 She has been seeing a neurologis t in [place] but are planning on transferri her records up here for further care. Pain of ear 910564372 H9 2.09 Atrial fibrillation 4943 [address]48[address] Matamoros. Seborrheic dermatitis 50 850403 L21.9 Shampoos and creams have not been helpful. Hyperglycemia 05250857 R 73.9 Morbid obesity 194785152 E66.01 Discussed diet and exercise. Congestive heart failure 72195141 I50.[address] Matamoros cardiology . Chronic ki dney disease stage 3B 420740595 N18.32 Monitor CMP today. 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 Hyperlipidemia 38354633 E78.5 Continue atorvastat in. Essential hypertension 43046667 I10 Continue irbesartan . [id number] CEDRIC GARCIA [facility] ([facility]) [address] [place] [address] 70[address]-555 5 11/29/2023 13:20:23 11/29/2023 14:50:35 Acute upper respiratory infection 33706680 J06.9 Atrial fib rillation with rapid ventricular response 6013134475 92682 I48.91 Improving. Follow-up with cardiology next week. [id number] CEDRIC GARCIA [facility] ([facility]) [address] [place] [id number] 5 01/16/2024 14:33:50 01/16/2024 16:40:54 Essential tremor 694007391 G25.0 Upcoming appt with neurology. Essential hypertension 83495503 I10 Continue irbesartan . Generalize d anxiety disorder 70172713 F41.1 Hospital i npatient stay within past 30 days 3943376764 106 Z76.89 [id number] CEDRIC GARCIA [facility] ([facility]) [address] [place] [address] [id number] 5 02/08/2024 14:25:27 02/09/2024 10:29:12 Acute urinary tract infection 735227155 N39.0 [id number] CEDRIC GARCIA [facility] ([facility]) [address] [place] [address] 47915-327 5 02/29/2024 11:45:42 02/29/2024 12:57:05 Benign hypertension 66839974 I10 Continue current medication . Recurrent urinary tract infection N39.0 Type 2 francisca betes mellitus without complication 413534067 E11.9 Memory impairment 118694 006 R41.3 Repeats herself frequently . [id number] CEDRIC GARCIA [facility] ([facility]) [address] [place] [address] 76653-122 5 03/18/2024 11:08:55 03/18/2024 11:51:04 Dizziness and giddiness 214931537 R42 Appt set up with PT to help with vertigo. Essential tremor 9579708 09 G25.0 Neurology is weaning her off of Carbidopa/ Levodopa. Vitamin D deficiency 347 46169 E55.9 Started vitamin to help with energy. Memory impairment 790101 006 R41.3 Repeats herself frequently . Recurrent urinary tract infection N39.0 Pain of le ft shoulder blade 294908497 M25.512 Significan t bruising to left shoulder following a fall a couple of days ago. Mild tenderness . Declines further work-up. [id number] CEDRIC GARCIA [facility] ([facility]) [address] [place] [address] [id number] 5 04/19/2024 11:49:18 04/22/2024 10:44:32 Dementia 21743104 F03.93 Tremor 97130227 R25.1 Worsened since stopping Propanolol . Benign hypertension 1072 5009 I10 Continue current medication . Generalize d anxiety disorder 14717993 F41.1 Recurrent urinary tract infection 372761430 N39.0 [id number] CEDRIC GARCIA [facility] ([facility]) [address] [place] [address] 05281-862 5 06/05/2024 13:42:43 06/05/2024 15:23:16 Essential hypertension 47262378 I10 Increasing losartan to twice a day this week. Dizziness 090090330 R42 Recent ER visit, meclizine given during the ER visit. Unsteady when walking 22 248985 R26.89 Recurrent falls 74256690 2 R29.6 Type 2 francisca betes mellitus 23141356 E11.22 A1C creeping up. Will work to get under control with diet and consider adding medication s. Parkinson's disease 4904 9000 G20.A1 Previously followed with neurologis t in [place], now seeing Dr. Kelsey. Congestive heart failure 34591639 I50.9 Follows with cardiology , appt coming up. Atrial fibrillation 4943 6004 I48.[address] cardiology . Dr. [place]. Chronic ki dney disease stage 3 618786188 N18.32 Continued monitoring . Hyperlipidemia 26828514 E78.5 Continue atorvastat in. Dementia 82474159 F02.80 Follows with neurology, worsening. Morbid obesity 655351505 E66.01 Discussed diet and exercise. [id number] AMISHA GUERRA [facility] ([facility]) [address] [place], [place] [address] 06/25/2024 10:54:36 06/27/2024 09:46:56 [id number] IRENE DUDLEY [facility] ([facility]) [address] [place], [place] [address] 07/09/2024 10:15:58 07/09/2024 12:10:10 Dysuria 77197066 R30.0 Discussed to take antibiotic as prescribed until completedU rine culture ordered - will notify of any resultsEdu cated patient on increasing PO fluids of water, decreasing caffeine (coffee) and sugary drinks.Dis cussed if developmen t of abdominal pain, flank pain, fever, vomiting, worsening symptoms return to walk-in, PCP or ED for re-evaluat ion. Return to clinic if any changes, any worsening, any concernsPa tient verbalized understand ing of plan. [id number] AMISHA GUERRA [facility] ([facility]) [address] [place], [place] [address] 08/12/2024 14:20:52 08/12/2024 15:19:56 Cough 43150420 R05.9 Antibiotic s prescribed today to cover for bronchitis . Acute otitis externa 302 73277 H60.725 [id number] AMISHA GUERRA [facility] ([facility]) [address] [place] [address] 29408-642 5 09/04/2024 11:08:03 09/04/2024 12:44:13 Benign hypertension 23097950 I10 Continue current medication . Benign ess ential hypertension 5857724 I10 Losartan up to twice a day. Essential tremor 9159030 09 G25.0 Neurology appt coming up in September. Uncomplica megan moderate persistent asthma 267498667 J45.40 2453818 [id number] JOSIE MEREDITH [facility] ([facility]) [address] [place], [place] [address] 09/07/2024 10:56:35 09/07/2024 12:02:24 [id number] AMISHA GUERRA [facility] ([facility]) [address] [place], [place] [address] 10/07/2024 14:46:34 10/08/2024 10:08:21 Chronic kidney disease stage 3B 980051371 N18.32 7528078249 Monitor CMP today. [id number] IRENE DUDLEY [facility] ([facility]) [address] [place], [place] [address] 10/29/2024 13:51:59 10/29/2024 15:50:00 Dysuria 33849941 R30.0 92211 Discussed to take antibiotic as prescribed until completedU rine culture ordered - will notify of any resultsEdu cated patient on increasing PO fluids of water, decreasing caffeine (coffee) and sugary drinks.Dis cussed if developmen t of abdominal pain, flank pain, fever, vomiting, worsening symptoms return to walk-in, PCP or ED for re-evaluat ion. May continue cranberry pills daily. Return to clinic if any changes, any worsening, any concernsPa tient verbalized understand ing of plan. Essential hypertension 77753829 I10 47494 Advised to monitor BP bid. Notify PCP with readings. Advised patient to present to ER with any worsening of ear ringing/he adache/con fusion. [id number] AMISHA GUERRA [facility] ([facility]) [address] [place] [address] 87470[address]733 5 12/10/2024 09:51:51 12/10/2024 11:23:15 Benign hypertension 19544186 I10 Continue current medication . Type 2 francisca betes mellitus 26342107 E11.22 A1C creeping up. Will work to get under control with diet and consider adding medication s. Parkinson's disease 1634 9000 G20.A1 Previously followed with neurologis t in [place], now seeing Dr. Kelsey. [id number] CEDRIC GARCIA [facility] ([facility]) [address] [place] [address] 03/13/2025 09:43:59 03/13/2025 11:30:48 Benign hypertension 98708174 I10 Continue current medication . Type 2 francisca betes mellitus 92459317 E11.22 A1C creeping up. Will check A1C today. 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 6764763294 38982 M1A.00X0 683146004 Administra tion of influenza vaccine 37489472 Z23 Nasal congestion 6279257 0 R09.81 56376 Recurrent urinary tract infection 843808374 N39.0 111156 General ex amination of patient 017566961 Z00.00 [id number] Health Concerns Section Related Observation LastModified by Organization Detai ls LastModified Time None Recorded Concern Status LastModified by Organization Details LastModified Time None Recorded Advance Directives Directive None Recorded Payers Insurance Date Sequence Insurance Name Policy Number Policy May Covered Member ID May Member ID Guarantor Name 03/13/2025 1 [facility] (MEDICARE REPLACEMENT/A DVANTAGE - PPO) [id number] Kadi Hernandez [id number] Kadi Hernandez Notes Date Note Type Note Provider Name and Address Organization Details Recorded Time 10/29/2024 text/html Lower Urinary Tr act Symptoms (LUTS)Reported by PatientROS as noted in the HPI walk in patientpatient is here today for confusion that is worse today then normal so would like her checked for UTI. Patient is denies any dysuria. Unsure about urinary frequency. Patient does complain of ear ringing. Elevated BP reading noted on exam. CEDRIC LOPEZ [address] [place] [address], [phone], [facility] 10/29/2024 15:36:36 12/10/2024 text/html Hypertension IM/FMReported by PatientHPIFor severity, patient reportsstage 2 (>140/>90 mmhg). For quality, patient reportshere for check-up. For duration, patient reportshtn present for ___ years. For alleviating factors, patient reportsmedication. For self care, patient reportsnon-smoker. For associated symptoms, patient reportsno shortness of breathandno chest pain. CEDRIC GARCIA [address] [place], [address], [facility] 12/10/2024 11:18:58 03/13/2025 text/html CoughReported by PatientHPIFor quality, patient reportsproductiveanddr y. For severity, patient reportsmoderate. For duration, patient reportsacute (<3 weeks). For context, patient reportsnon-smoker. For associated symptoms, patient reportsno fever. HeadacheReported by PatientHPIFor severity, patient reportsmild. For associated symptoms, patient reportsno nauseaandno vomiting. Hypertension IM/FMReported by PatientHPIFor severity, patient reportsstage 2 (>140/>90 mmhg). For quality, patient reportshere for check-up. For duration, patient reportshtn present for ___ years. For alleviating factors, patient reportsmedication. For self care, patient reportsnon-smoker. For associated symptoms, patient reportsno shortness of breathandno chest pain. CEDRIC GARCIA [address] [place], [address], [facility], LNadineLNadineC. 03/13/2025 11:03:32 OBGyn Episode No OBEpisode recorded.
--- OUTSIDE RECORDS SUMMARY | 2025-03-20 09:10 | XMS_ITS | Encounter Summary ---
Author Organization [facility] Address [address] [place] [address] Care Team Providers Care Collection Manager Name Role Phone Unavailable Primary Care Provider Unavailabl e Encounter Details Date Type Department Care Team (Late st Contact Info) Description 04/10/2003 Outpatient [facility] [address] [place] [phone] Benny Asif DO [address] [place] [phone] Routine medical exam (Primary Dx); ABN INVOLUN MOVEMENT NEC; SYMPTOMATIC FEMALE CLIMACTERIC STATE; OBESITY NOS Social History Tobacco Use Types Packs/Day Years Used Date Smoking Tobacco: Never Assessed Comments Unknown Sex and Gender Information Value Date Recorded Sex Assigned at Not on file 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
--- OUTSIDE RECORDS SUMMARY | 2025-03-20 09:10 | XMS_ITS | Clinical Summary ---
Author Organization [facility] Address [address] 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
--- OUTSIDE RECORDS SUMMARY | 2025-03-20 09:10 | XMS_ITS | Encounter Summary ---
Author Organization [facility] Address [address] [place] [address] Care Team Providers Care Plastic Mixer Name Role Phone Unavailable Primary Care Provider Unavailabl e Encounter Details Date Type Department Care Team (Late st Contact Info) Description 05/24/2006 Outpatient Historical [facility] [address] [place] [address] Benny Asif DO [address] [place] [phone] Routine Medical Exam (Primary Dx); Abnormal Involuntary Movements; Pure Hypercholesterolem; Vaccine for influenza Social History Tobacco Use Types Packs/Day Years Used Date Smoking Tobacco: Never Assessed Comments Unknown Sex and Gender Information Value Date Recorded Sex Assigned at Not on file 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
--- OUTSIDE RECORDS SUMMARY | 2025-03-20 09:10 | XMS_ITS | Continuity of Care Document ---
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 Phone AMISHA GUERRA Primary Care Provider NATALIE Erazo Referring Provider Assessment Encounter Date Assessment Date Assessment LastModified by Organization Details LastModified Time 03/13/2025 03/13/2025 Patient here today for a [...] Not available Not available Not available Lab hemoglobi n A1C/hemog lobin total, QN, blood 2024 025 [facility], [address], [address], [place], [address], 03/13/2025 12:46:27 CMP, serum or plasma 2024 025 [facility] [facility], [address], [address], [place], [address], 03/13/2025 13:00:06 CBC 2024 025 [facility], [address], [address], [place], [address], 03/13/2025 12:05:17 urinalysi s, complete 2024 025 [facility], [address], [place], [address], 03/13/2025 13:43:59 culture, urine 2024 025 [place] [facility] [facility], [address] [place] [address], [address] [place], [address], 03/14/2025 21:15:29 Referral None recorded. Procedures None recorded. Surgeries None recorded. Imaging None recorded. Medication Orders Claritin 10 mg tablet 2024 025 [facility], [address] [place] [address], [address], 03/14/2025 13:48:37 allopurin ol 300 mg tablet 2024 025 [facility], [address] [place] [address], [address], 03/14/2025 13:48:37 Patient TargetsNo targets recorded. Patient Instructions Encounter Date Encounter Id Patient Instructions Last Modified By Organization Details Last Modified Time 03/13/2025 [id number] preventing falls : care instructions Not available 03/13/2025 11:03:25 well visit, over 65: care instructions Not available 03/13/2025 11:03:25 Call or return for questions or concerns. Not available 03/13/2025 10:50:43 Reason for Referral None Reported. Results Created Date Observation Date Name Description Value Unit Range Abnormal Flag Note LastModifiedBy Organization Detail LastModifiedTime 03/13/2003/13/2025 CBC WBC 7.9 x10 4.0-10 .5 Not Available [facility] [address] [facility] [address], [place], [address], 03/13/2025 12:05:17 03/13/2003/13/2025 CBC RBC 4.27 x10 3.50-5 .50 Not Available [facility] [address], [place], [address], 03/13/2025 12:05:17 03/13/2003/13/2025 CBC HGB 12.6 g/dL 12.0-1 6.0 Not Available [facility] [address], [place], [address], 03/13/2025 12:05:17 03/13/2003/13/2025 CBC HCT 39.3 % 37.0-4 7.0 Not Available [facility] [address] [facility] 1, [place], [address], 03/13/2025 12:05:17 03/13/2003/13/2025 CBC MCV 92.0 fL 80.0-9 9.9 Not Available [facility] [address] [facility] [address] [facility] 1, [place], [address], 03/13/2025 12:05:17 03/13/20 25 03/13/2025 CBC MCH 29.5 pg 27.0-3 2.0 Not Available [facility] [address] [facility] [address] [facility] 1, [place], [address], 03/13/2025 12:05:17 03/13/2003/13/2025 CBC MCHC 32.0 g/dL 32.0-3 6.0 Not Available [facility] [address] [facility] 1, [place], [address], 03/13/2025 12:05:17 03/13/2003/13/2025 CBC RDW 14.6 % 11.5-1 4.5 high Not Available [facility] [address] [facility] 1, [place], [address], 03/13/2025 12:05:17 03/13/2003/13/2025 CBC plt 255.9 x10 140.0- 451.0 Not Available [facility] [address] [place] [address] [address], [place], [address], 03/13/2025 12:05:17 03/13/2003/13/2025 CBC lymphocytes % 24.2 % 20.0-5 0.0 Not Available [facility] [address] [facility] 1, [place], [address], 03/13/2025 12:05:17 03/13/2003/13/2025 CBC granulcytes % 60.0 % 30.0-7 0.0 Not Available [facility] [address] [address], [place], [address], 03/13/2025 12:05:17 03/13/2003/13/2025 CBC monocytes % 10.3 % 2.0-16 .0 Not Available [facility] [address] [place] [address] [address], [place], [address], 03/13/2025 12:05:17 03/13/2003/13/2025 CBC granulcytes# 4.8 x10 Not Anabelle ilable [facility] [address] [place] [address] [address], [place], [address], 03/13/2025 12:05:17 03/13/2003/13/2025 CBC lymphocytes # 1.9 x10 Not Available [facility] [address] [place] [address] [facility], [place], [address], 03/13/2025 12:05:17 03/13/20 25 03/13/2025 CBC monocytes # 0.8 x10 Not Avai lable [facility] [address] [facility] [address] [facility] 1, [place], [address], 03/13/2025 12:05:17 03/13/2003/13/2025 HBA1C hemaglobin A1C 6.3 4.2-6. 5 Not Available [facility] [address] [facility], [place], [address], 03/13/2025 12:46:27 03/13/2003/13/2025 CMP (FEMA LE) glucose 198.0 mg/dL 60.0-9 9.0 high Not Available [facility] [address] [facility], [place], [address], 03/13/2025 13:00:06 03/13/20 25 03/13/2025 CMP (FEMA LE) BUN (blood urea nitrogen) 21.0 mg/dL 10.0-2 6.0 Not Available [facility] [address] [facility], [place], [address], 03/13/2025 13:00:06 03/13/20 25 03/13/2025 CMP (FEMA LE) creatinine (serum) 1.5 mg/dL 0.4-1. 5 Not Available [facility] [address] [facility], [place], [address], 03/13/2025 13:00:06 03/13/2003/13/2025 CMP (FEMA LE) BUN/creatini ne ratio 14.00 ratio Not Available [facility] [address] [facility], [place], [address], 03/13/2025 13:00:06 03/13/20 25 03/13/2025 CMP (FEMA LE) eGFR calculated 35.5 Not Available [facility] [address] [facility], [place], [address], 03/13/2025 13:00:06 03/13/2003/13/2025 CMP (FEMA LE) total protein 8.5 g/dL 6.0-8. 5 Not Available [facility] [address] [facility], [place], [address], 03/13/2025 13:00:06 03/13/2003/13/2025 CMP (FEMA LE) total bilirubin 0.8 mg/dL 0.2-1. 3 Not Available [facility] [address] [place] [facility], [place], [address], 03/13/2025 13:00:06 03/13/2003/13/2025 CMP (FEMA LE) albumin 4.3 g/dL 3.5-5. 5 Not Available [facility] [address] [facility] 1, [place], [address], 03/13/2025 13:00:06 03/13/2003/13/2025 CMP (FEMA LE) globulin 4.2 calc Not Available [facility] [address] [facility] 1, [place], [address], 03/13/2025 13:00:06 03/13/2003/13/2025 CMP (FEMA LE) AST (SGOT) 86.0 U/L 0.0-46 .0 high Not Available [facility] [address] [facility] 1, [place], [address], 03/13/2025 13:00:06 03/13/2003/13/2025 CMP (FEMA LE) altv (SGPT) 63.0 U/L 13.0-6 9.0 normal Not Available [facility] [address] [facility], [place], [address], 03/13/2025 13:00:06 03/13/2003/13/2025 CMP (FEMA LE) A/G ratio 1.0 ratio Not Available [facility] [address] [facility] 1, [place], [address], 03/13/2025 13:00:06 03/13/2003/13/2025 CMP (FEMA LE) ALP phos 64.0 U/L 30.0-1 40.0 normal Not Available [facility] [address] [facility] 1, [place], [address], 03/13/2025 13:00:06 03/13/2003/13/2025 CMP (FEMA LE) calcium 10.7 mg/dL 8.4-10 .5 high Not Available [facility] [address] [facility] 1, [place], [address], 03/13/2025 13:00:06 03/13/2003/13/2025 CMP (FEMA LE) sodium 141.0 mmol/ L 136.0- 145.0 Not Available [facility] [address] [address], [place], [address], 03/13/2025 13:00:06 03/13/2003/13/2025 CMP (FEMA LE) potassium 4.4 mmol/ L 3.5-5. 1 Not Available [facility] [address] [facility] 1, [place], [address], 03/13/2025 13:00:06 03/13/2003/13/2025 CMP (FEMA LE) chloride 101.0 mmol/ L 98.0-1 10.0 normal Not Available [facility] [address] [facility], [place], [address], 03/13/2025 13:00:06 03/13/2003/13/2025 CMP (FEMA LE) C02 27.0 mmol/ L 22.0-3 1.0 Not Available [facility] [address] [facility] 1, [place], [address], 03/13/2025 13:00:06 03/13/20 25 03/13/2025 CMP (FEMA LE) anion gap 13.0 calc Not Available [facility] [address] [facility] 1, [place], [address], 03/13/2025 13:00:06 03/13/2003/13/2025 CMP (FEMA LE) osmolality 298.9 calc Not Available [facility] [address] [facility] [address] [facility] 1, [place], [address], 03/13/2025 13:00:06 03/13/20 25 03/13/2025 URINA LYSIS WITH MICRO color DARK YELLOW Not Available [facility] [address] [facility] [address] [facility] 1, [place], [address], 03/13/2025 13:43:58 03/13/20 25 03/13/2025 URINA LYSIS WITH MICRO clarity CLOUDY Not Available [facility] [address] [facility] [address] [facility] 1, [place], [address], 03/13/2025 13:43:58 03/13/20 25 03/13/2025 URINA LYSIS WITH MICRO glu NEGATI VE Not Available [facility] [address] [facility] 1, [place], [address], 03/13/2025 13:43:58 03/13/20 25 03/13/2025 URINA LYSIS WITH MICRO bili NEGATI VE Not Available [facility] [address] [facility] [address] [facility] 1, [place], [address], 03/13/2025 13:43:58 03/13/20 25 03/13/2025 URINA LYSIS WITH MICRO ket TRACE Not Available [facility] [address] [facility] 1, [place], [address], 03/13/2025 13:43:58 03/13/2003/13/2025 URINA LYSIS WITH MICRO S.g 1.030 1.005- 1.025 high Not Available [facility] [address] [place] [address] [facility] 1, [place], [address], 03/13/2025 13:43:58 03/13/2003/13/2025 URINA LYSIS WITH MICRO pH 5.5 5.0-7. 0 Not Available [facility] [address] [place] [address] [facility] 1, [place], [address], 03/13/2025 13:43:58 03/13/2003/13/2025 URINA LYSIS WITH MICRO pro 1+ Not Available [facility] [address] [place] [address] [facility] 1, [place], [address], 03/13/2025 13:43:58 03/13/20 25 03/13/2025 URINA LYSIS WITH MICRO uro 0.2 E.U./D L Not Available [facility] [address] [place] [address] [facility] 1, [place], [address], 03/13/2025 13:43:58 03/13/2003/13/2025 URINA LYSIS WITH MICRO nit NEGATI VE Not Available [facility] [address] [place] [address] [facility] 1, [place], [address], 03/13/2025 13:43:58 03/13/2003/13/2025 URINA LYSIS WITH MICRO blo 3+ Not Available [facility] [address] [facility] [address] [facility] 1, [place], [address], 03/13/2025 13:43:58 03/13/20 25 03/13/2025 URINA LYSIS WITH MICRO noe TRACE Not Available [facility] [address] [place] [facility], [place], [address], 03/13/2025 13:43:58 03/13/20 25 03/13/2025 URINA LYSIS WITH MICRO WBC 8-10 Not Available [facility] [address] [place] [facility], [place], [address], 03/13/2025 13:43:58 03/13/20 25 03/13/2025 URINA LYSIS WITH MICRO RBC 30-40 Not Available [facility] [address] [facility] 1, [place], [address], 03/13/2025 13:43:58 03/13/20 25 03/13/2025 URINA LYSIS WITH MICRO epi cells 10-12 Not Available [facility] [address] [facility] 1, [place], [address], 03/13/2025 13:43:58 03/13/20 25 03/13/2025 URINA LYSIS WITH MICRO bacteria 1+ MIXED FRANCISCO JAVIER Not Available [facility] [address] [facility] 1, [place], [address], 03/13/2025 13:43:58 03/13/20 25 03/13/2025 URINA LYSIS WITH MICRO other NEGATI VE Not Available [facility] [address] [facility] 1, [place], [address], 03/13/2025 13:43:58 03/13/20 25 03/14/2025 CULTU RE, URINE , ROUTI NE culture, urine, routine SEE NOTE CULTU RE, URINE , ROUTI NE Micro Numbe r: [id number] Test Statu s: Final Speci men Sourc e: Urine Speci men Quali ty: Adequ ate Resul t: Mixed genit al francisco javier isola megan. These super ficia l bacte cam are not indic ative of a urina ry tract infec tion. No furth er organ ism ident ifica tion is ralph nted on this speci men. If clini yuly indic ated, recol lect clean -catc h, mid-s tream urine and trans abdiaziz immed iatel y to Urine Cultu re Trans port Tube. Not Available [facility] [address], [place], [address], 03/14/2025 21:15:28 Result Notes None recorded. Problems Name Problem SNOMED Code Status Onset Date Resolution Date Notes Provider Name and Address Organization Details Recorded Time Benign essential hypertensio n 2533362 [facility] 12:42:58 Blood pressure above reference range [id number] [facility] JEFFY LEY [facility] 5 14:52:36 Hypertrigly ceridemia [id number] [facility] JEFFY LEY [facility] 5 14:52:36 Mycosis [id number] [facility] 5 14:52:36 Dyslipidemi a [id number] [facility] JEFFY LEY [facility] 5 14:52:36 Biliary colic 46136699 Active PHILIP BARDALES [facility] 4 12:43:08 Hypertensiv e disorder 79132222 Active AMISHA GUERRA, [address], [address], [facility] 5 10:48:16 Dizziness [id number] Selina GUERRA, [address], [address], [facility] 5 10:48:16 Herpes zoster [id number] [facility] 5 14:52:36 Bradycardia 81530231 [facility] 4 12:43:11 Atrial fibrillatio n 55227532 Active AMISHA GUERRA, [address], [address], [facility] 5 10:48:16 Coronary arterioscle rosis 43168757 [facility] 4 12:43:19 Dyspnea on exertion 53453097 Active JEFFY AHNOVER [facility] 5 14:52:36 Essential tremor 131822994 [facility] AMISHA GUERRA, [address], [address], [facility] 5 10:48:16 Palpitation s [id number] [facility] JEFFY LEY [facility] 5 14:52:36 Gout 59696711 Active JEFFY LEY [facility] 5 14:52:36 Benign hypertensio n 64281050 [facility] 4 12:43:02 Asthenia 61259318 Active AMISHA GUERRA, [address], [address], [facility] 5 10:48:16 Metabolic encephalopa thy 13213410 Active JEFFY LEY [facility] 5 14:52:36 Urinary tract infectious disease 00495368 Active AMISHAMara GUERRA, [address], [address], [facility] 5 10:48:16 Lactic acidosis 86984478 Active JEFFY [facility] 5 14:52:36 Chest pain 67704216 Active AMISHA GUERRA, [address], [address], [facility] 5 10:48:16 Benign paroxysmal positional vertigo 571904772 Active AMISHA UGERRA, [address], [address], [facility] 5 10:48:16 Labyrinthit is [id number] [facility] 5 14:52:36 Disturbance of consciousne ss [id number] [facility] JEFFY [facility] 5 14:52:36 Vertigo [id number] [facility] 14:52:36 Altered mental status [id number] [facility] JEFFY [facility] 14:50:27 Hypertensiv e urgency [id number] [facility] JEFFY [facility] 14:52:36 Amnesia [id number] [facility] 14:52:36 Objective vertigo [id number] [facility] 14:52:36 Reactive airway disease 868585275290 [facility] 14:52:36 Near syncope 562855885 Active AMISHA GUERRA, [address], [address] [place] [address] 5, [facility] 10:48:16 Sepsis 27110771 Active AMISHA GUERRA, [address], [address] [place] [address] 5, [facility] 10:44:32 Sprain of left ankle 7169445136370 9105 Active AMISHA GUERRA, [address], [address] [place] [address] 5, [facility] 10:46:10 Headache 90407393 Selina GUERRA, [address], [address] [place] [address] 5, [facility] 10:48:16 Acute urinary tract infection 127479509 Active AMISHA GUERRA, [address], [address] [place] [address] 5, [facility] 10:46:10 Acute labyrinthit is 8109069383094 03 Active AMISHA GUERRA, [address], [address] [place] [address] 5, [facility] 10:46:10 Adjustment disorder with anxious mood 82158740 Active AMISHA GUERRA, [address], [address] [place] [address] 5, [facility] 10:46:10 Anxiety 21005180 Active AMISHA GUERRA, [address], [address] [place] [address] 5, [facility] 08/05/202 5 10:46:10 Acute cystitis [id number] Selina GUERRA, [address], [address], [facility] 5 10:46:10 Acute kidney injury [id number] Selina GUERRA, [address], [address], [facility] 5 10:41:33 Hypomagnese elvira 204003648 Selina GUERRA, [address], [address], [facility] 5 10:41:33 Syncope [id number] Selina GUERRA, [address], [address], [facility] 5 10:41:33 Syncope and collapse [id number] Selina GUERRA, [address], [address], [facility] 5 10:41:33 Dizziness of unknown cause [id number] Selina GUERRA, [address], [address], [facility] 5 10:41:33 Lactic acid level above reference range [id number] Selina GUERRA, [address], [address], [facility] 5 10:41:33 History of cholecystec nader 512798664 Active 2019 JEFFY styles [facility] 5 14:52:36 Essential hypertensio n 43718693 Active 2023 [facility] 4 17:51:41 Cardiomegal y 6266070 Active 2023 mild [facility] 4 17:56:13 Atrial fibrillatio n with rapid ventricular response 6610808814711 09 Active 2023 AMISHA GUERRA, [address], [address] [place] [address] 5, [facility] 5 10:48:16 Type 2 diabetes mellitus 09954810 Active 2024 AMISHA GUERRA, [address], [address] [place] [address] 5, [facility] 5 19:26:52 Parkinson's disease 08291080 Active 2024 AMISHA GUERRA, [address], [address] [place] [address] 5, [facility] 5 19:28:20 Congestive heart failure 37474995 Active 2024 AMISHA GUERRA, [address], [address], [facility] 5 19:29:24 Chronic kidney disease stage 3 608033860 Active [address], [address], [facility] 5 19:32:28 Problem Notes None recorded. Procedures Surgical History Date Name Laterality Status Provider Name and Address Organization Details Recorded Time 01/24/20 25 plain X-ray of chest completed PHILIP JEFFY [facility] 01/24/2025 15:14:07 01/24/[address] of head completed PHILIP [facility] 01/24/2025 15:14:57 08/15/19 25 plain X-ray of chest completed [facility] 08/19/2024 09:37:52 04/21/[address] of head completed [facility] 04/24/2024 14:38:54 01/09/20 24 plain X-ray of chest completed [facility] 01/09/2024 18:48:47 01/09/[address] of head completed [facility] 01/09/2024 18:49:46 01/09/20 24 procedure on neck completed [facility] 01/09/2024 18:52:29 11/18/19 24 plain X-ray of chest completed [facility] 11/22/2023 19:57:57 11/02/19 24 plain X-ray of chest completed [facility] 11/02/2023 17:49:11 11/02/[address] of head completed [facility] 11/02/2023 17:50:27 07/29/19 24 plain X-ray of chest completed [facility] 08/01/2023 17:22:55 07/29/[address] of head completed [facility] 08/22/2023 17:24:25 07/28/19 24 plain X-ray of chest completed [facility] 08/22/2023 17:22:37 04/21/20 23 plain X-ray of chest completed [facility] 05/17/2023 12:28:28 03/27/20 23 [facility] 16:10:21 03/27/20 23 Doppler ultrasonography of venous structure of limb completed [facility] 03/28/2023 16:11:27 [facility]/12[facility] 14:48:54 Imaging Results None recorded. Procedure Notes None recorded. Medical Equipment None Reported. Allergies Allergen ID Allergen Name Allergen Category Reaction Reaction Severity Criticality Documentation Date Start Date Code Code System Note Provider Name and Address Organization Details Recorded Time 13177 lisinopri l medicatio n Not available Not available Not available 11/29/20232024 39801 RxNorm AMISHA CAMPUZANOTES, [address], [address], [facility] Alec 10:48:03 Medications Name Sig Start Date Stop [...] t Available atorvasta tin daily 12/19 completed 17596; Recorded 04/14/20 12:02PM by Philip Bardales CMT (Authori viky through [facility]), Refill Request; Mail Order Quantity : 90 Tablet; Mail Order Days: 90 Days; Refill Quantity : 0; Not Available Not Available Not Available propranol ol daily 12/19 completed 0; Recorded 06/23/19 2:53PM by [...] potassium (bulk) daily 12/19 completed Recorded 06/23/19 23 2:53PM by Cheyanne Hough, Office Visit; Mail [...] Updated DateTime 5 157.48 cm 41.2 kg/m2 229190. 28 g 95 % 95 % 82 /min 22 /min 138/68 mm[Hg] PHILIP BARDALES [facility] 5 10:22:27 Social History Question Answer Notes LastModified by Sellywhere Details LastModified Time Tobacco Smoking Status Never Smoker PHILIP styles [facility] 01/04/2023 12:21:22 What Was The Date Of Your Most Recent Tobacco Screening? 10/29/2024 [email or web address] Information not available 10/29/2024 Sex: Unknown Functional Status Question Answer Note LastModified by [employer] Details LastModified Time Do you use any illicit or recreational drugs? No [email or web address] Information not available 01/04/2023 What is your level of alcohol consumption? None [email or web address] Information not available 01/04/2023 Mental Status None recorded. Family History Relationship Description Onset Age of this Age Resolved Age Notes LastModified by Organization Details LastModified Time Mother Cerebrovascu lar accident [email or web address] Not available 17:54:19 Mother Type 2 diabetes mellitus Not available 11/01 17:54:50 Father Myocardial infarction age 62 Not available 11/02/2023 17:55:36 Father Malignant neoplasm of colon [email or web address] Not available 09/04 12:10:24 Medical History Condition Response Heart Problems Y High Cholesterol Y Hypertension Y Gynecological HistoryNo gynecological history recorded. Obstetrics History GPAL:G 0 P 0 0 0 0 Immunizations Vaccine Type Date Status Note Provider Nam e and Address Organization Details Recorded Time Influenza, adjuvanted, trivalent, PF 5 completed PHILIP styles [facility] 03/13/2025 11:28:30 Influenza, split virus, quadrivalent, PF 4 completed AMISHA GUERRA, [address], [address], [facility] 04/19/2024 12:39:02 COVID-19, mRNA, LNP-S, PF, 50 mcg/0.5 mL 3 completed AMISHA GUERRA, [address], [address], [facility] 06/05/2024 15:08:09 COVID-19, mRNA, LNP-S, PF, 100 mcg/0.5mL dose or 50 mcg/0.25mL dose 1 completed AMISHA GUERRA, [address], [address], [facility] 03/13/2025 10:46:13 COVID-19, mRNA, LNP-S, PF, 100 mcg/0.5mL dose or 50 mcg/0.25mL dose 1 completed AMISHA GUERRA[address], [address], [facility] 03/13/2025 10:46:14 COVID-19, mRNA, LNP-S, PF, 100 mcg/0.5mL dose or 50 mcg/0.25mL dose 1 completed AMISHA GUERRA[address], [address], [facility] 03/13/2025 10:46:14 COVID-19, mRNA, LNP-S, bivalent, PF, 50 mcg/0.5 mL or 25mcg/0.25 mL dose 2 completed AMISHA GUERRA [address] [address], [facility] 10/04/2022 07:54:30 Tdap 1 completed AMISHA GUERRA, [address], [address], [facility] 10/04/2022 07:54:30 Pneumococcal conjugate PCV 13 7 completed AMISHA GUERRA, [address], [address], [facility] 03/13/2025 10:46:14 Influenza, high-dose, trivalent, PF 9 completed AMISHA GUERRA, [address], [address], [facility] 10/04/2022 07:54:30 Influenza, split virus, trivalent, preservative 0 completed AMISHA GUERRA, [address], [address], [facility] 10/04/2022 07:54:30 Influenza, split virus, trivalent, preservative 2 completed AMISHA GUERRA, [address], [address], [facility] 10/04/2022 07:54:30 Influenza, split virus, trivalent, preservative 4 completed AMISHA GUERRA, [address], [address], [facility] 10/04/2022 07:54:30 Influenza, split virus, trivalent, PF 5 completed AMISHA GUERRA, [address], [address], [facility] 10/04/2022 07:54:30 Hep B, adult 4 completed AMISHA GUERRA, [address], [address], [facility] 10/04/2022 07:54:30 Hep B, adult 3 completed AMISHA GUERRA, [address], [address], [facility] 10/04/2022 07:54:30 Hep B, adult 3 completed AMISHA GUERRA, [address], [address], [facility] 10/04/2022 07:54:30 Hep A, adult 4 completed AMISHA GUERRA, [address], [address], [facility] 10/04/2022 07:54:30 Hep A, adult 1 vandana GUERRA, [address], [address], [facility] 03/13/2025 10:46:14 Influenza, split virus, quadrivalent, PF 1 vandana GUERRA [address], [address], [facility] 03/13/2025 10:46:14 Past Encounters Encounter ID Performer Location Encounter Start Date Encounter Closed Date Diagnosis/Indication Diagnosis SNOMED-CT Code Diagnosis ICD10 Code Diagnosis IMO Codes Diagnosis Note [id number] AMISHA GUERRA [facility] [address] [place] [address] 03/13/2025 09:43:59 03/13/2025 11:30:48 Benign hypertension 35193937 I10 Continue current medication . Type 2 francisca betes mellitus 52696875 E11.22 A1C creeping up. Will check A1C today. 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 [id number] 91071 M1A.00X0 [id number] Administra tion of influenza vaccine 36580081 Z23 Nasal congestion 1096136 0 R09.81 86836 Recurrent urinary tract infection 316602625 N39.0 656401 General ex amination of patient 916401314 Z00.00 6096137 Health Concerns Section Related Observation LastModified by Organization Detai ls LastModified Time None Recorded Concern Status LastModified by Organization Details LastModified Time None Recorded Payers Encounter Date Sequence Insurance Name Policy Number Policy May Covered Member ID May Member ID Guarantor Name 03/13/2025 1 [facility] (MEDICARE REPLACEMENT/A DVANTAGE - PPO) [id number] Kadi Hernandez [id number] Kadi Hernandez Notes Date Note Type Note Provider Name and Address Organization Details Recorded Time 03/13/2025 text/html CoughReported by PatientHPIFor quality, patient [...] patient reportsno shortness of breathandno chest pain. AMISHA GUERRA, [facility] [address] [place], [address], [facility], Alec 03/13/2025 11:03:32 OBGyn Episode No OBEpisode recorded.
--- OUTSIDE RECORDS SUMMARY | 2025-03-20 09:10 | XMS_ITS | Encounter Summary ---
Author Organization [facility] Address [address] [place] [address] Care Team Providers Care Audio Visual Coordinator Name Role Phone Unavailable Primary Care Provider Unavailabl e Encounter Details Date Type Department Care Team (Late st Contact Info) Description 07/24/2003 [facility] [address] [place] [phone] Benny Asif DO [address] [place] [phone] ABN INVOLUN MOVEMENT NEC (Primary Dx); HEADACHE; Pure hypercholesterolem; CONJUNCTIVITIS NOS Social History Tobacco Use Types Packs/Day Years Used Date Smoking Tobacco: Never Assessed Comments Unknown Sex and Gender Information Value Date Recorded Sex Assigned at Not on file Legal Sex Female 4:30 AM [employer] Gender Identity Not on file Sexual Orientation Not on file documented as of this encounter Plan of Treatment Not on file documented as of this encounter Visit Diagnoses Diagnosis Abnormal involuntary movements(781.0)- Primary Abnormal involuntary movements Headache(784.0) Headache Pure hypercholesterolem Pure hypercholesterolemia Conjunctivitis unspecified Conjunctivitis, unspecified documented in this encounter
--- OUTSIDE RECORDS SUMMARY | 2025-03-20 09:10 | XMS_ITS | Patient Health Record ---
Author Organization [facility] Address [address] [place] [address] Care Team Providers Care Manager Trust Name Role Phone Bonnie Fleming APRN Primary Care Provider Unavaila Clarissa Guerrier Unavailable [phone] Rafa Gomez Unavailable [phone] Aydee Gutierrez Unavailable Allergies Allergen (clinical drug ingredient) Drug/Non Drug Allergy documented on EMR Reaction Allergy Type Onset Date Status lisinopril Lisinopril Unknown Drug Allergy Activ e Results Component Value Reference Range Notes [facility] Micro-Auto, [facility] [place] [facility] [id number] Reviewed date:01/01/2025 10:48:11 AM Interpretation: Performing Lab: Notes/Report: Glucose 0 Bili 1+ Ketones 0 Sp [place] 1.030 Blood 0 pH 5.5 Protein +- Urobili 0 Nitrites 0 Leukocytes +- U[place], [place] - [id number] Reviewed date:12/04/2024 10:40:53 AM Interpretation: Performing Lab: Notes/Report: Glucose 0 Bili 0 Ketones 0 Sp [place] 1.030 Blood 0 pH 6.0 Protein +- Urobili 0 Nitrites 0 Leukocytes 1+ Reason For Referral Reason frequent UTI Diagnosis 1 Frequent UTI (N39.0) Referral Organization [facility] Referring Provider First Name Clarissa Referring Provider Last Name Dayanna Referring Provider Speciality Nurse Prac titioner Referred Provider [facility] Referred Provider Specialty Urology General Notes Nguyen Olguin 10/23 04:09:42 PM >Cornish at Dr. Gomez's office verified referral has been received. Patient has not been called to set up.Clau Crystal 11/12/2024 03:58:55 PM >Voice mail was left on 11/12/24 requesting patient return call to Dr. Gomez's office to set up appt, Nguyen Olguin LPN 11/20/2024 11:46:21 AM CDT > LVM at [phone] Gomez's office to be set up for freuquent UTI., Nguyen Olguin LPN 11/20/2024 11:46:53 AM CDT > No answer at [phone] and unable to leave a message.Clau Crystal, LPN 11/21/2024 03:22:44 PM CDT > Has appt 12/04/24 Referral Priority Routine Reason Frequent UTI's Diagnosis 1 Frequent UTI (N39.0) Referral Organization [facility] Referring Provider First Name Clarissa Referring Provider Last Name Dayanna Referring Provider Speciality Nurse Prac titioner Referred Organization [facility] Referred Provider Rafa Gomez Referred Address [address],[place], [place],[address], Referred Provider Specialty Urology General Notes Mai Guzmán 12/2024 11:33:28 AM >Lvm to schedule sole layer hand appt Referral Priority Routine Medications Medication SIG (Take, Route, Frequency, Duration) Notes Start Date End Date Status Atorvastatin Calcium 20 MG Tablet 1 tablet Orally Once a day Active Hydrocortisone 2.5 % Cream 1 application Externally Once a day Active 27-1 MG Tablet 1 tablet Orally Once a day 11/06/2024 Active Hydrocortisone 2.5 % Cream 1 application Externally Twice daily to red thickened rash and plaques on face as needed. No more than 2 weeks per month 11/06/2024 Active busPIRone HCl 5 MG Tablet 1 tablet Orall y Twice a day Active ALPRAZolam 0.5 MG Tablet 1 tablet Orally Twice a day as needed Active Furosemide 20 MG Tablet 1 tablet Orally Once a day Active Ofloxacin 0.3 % Solution 10 drops into a ffected ear Otic Once a day Active Amiodarone HCl 200 MG Tablet 1 tablet Orally Once a day Active hydrALAZINE HCl 10 MG Tablet 1 tablet with food Orally twice a day Active Potassium Chloride ER 10 MEQ Tablet Extended Release 1 tablet with food Orally Twice a day Active Chlorthalidone 25 MG Tablet 1 tablet in the morning with food Orally Active Triamcinolone Acetonide 0.1 % Cream 1 application Externally Two times a Week Active Vascepa 1 GM Capsule 1 capsules with lesvia ls Orally daily Active Isosorbide Mononitrate ER 60 MG Tablet Extended Release 24 Hour 1 tablet in the morning Orally Once a day Active Xarelto 20 MG Tablet 1 tablet with food Orally Once a day Active cloNIDine HCl 0.1 MG Tablet 1 tablet Orally every 8 hrs as needed Active LORazepam 0.5 MG Tablet 2 Orally daily Active Ventolin HFA 108 (90 Base) MCG/ACT Aerosol Solution 1 puff as needed Inhalation every 4 hrs Not-Takin g Vitamin D3 1.25 MG (71762 UT) Capsule 1 capsule Orally weekly 11/06/2024 Not-Taking Donepezil HCl 10 MG Tablet 1 tablet at b edtime Orally Once a day Active Losartan Potassium 50 MG Tablet 1 tablet Orally twice a day 11/06/2024 Active Cholecalciferol 1.25 MG (50924 UT) Capsule 1 capsule Orally Activ e Ketoconazole 2 % Cream 1 application Externally daily as needed for flares Active Ofloxacin 0.3 % Solution 10 drops into a ffected ear Otic Once a day Not-Taking Clobetasol Propionate 0.05 % Solution 1 application Externally Twice a day Active Loratadine 10 MG Tablet 1 tablet Orally Once a day Active Low Iron No t-Taking Symbicort 160-4.5 MCG/ACT Aerosol as directed Inhalation Not-T aking Albuterol Sulfate HFA 108 (90 Base) MCG/ACT Aerosol Solution 1 puff as needed Inhalation every 4 hrs Active Estradiol 0.1 MG/GM Cream as directed Va ginal twice a week; Duration: 24 days 12/04/2024 Active Allopurinol 300 MG Tablet 1 tablet Orall y Once a day Active Meclizine HCl 12.5 MG Tablet 1 tablet as needed Orally every 12 hrs Active Flonase Allergy Relief 50 MCG/ACT Suspension 1 spray in each nostril Nasally Twice a day Active Methenamine Hippurate 1 GM Tablet 1 tablet Orally Twice a day Active Social History Tobacco Use: Social History Observation Description Date Details (start date - stop date) Never Smoker NA - NA Social History Drugs/Alcohol: Social Info Question Answer Notes Drugs Have you used drugs other than those for medical reasons in the past 12 months? No Household: Social Info Question Answer Notes Household Private Home With spouse/life partner Marital status: Level of education: not finished college Drug/Alcohol: Social Info Question Answer Notes AUDIT-C (Standard) Did you have a drink containing alcohol in the past year? No Points 0 Interpretation Negative Tobacco Use: Social Info Question Answer Notes Tobacco Control (Standard) Tobacco use: Nonsmoker Additional Details Category Social Info Options Details Drugs/Alcohol: Do you smoke marijuana? De nies Do you drink alcohol? No Section Notes: caffeine- neg alcohol- neg caffeine- neg alcohol- neg caffeine- neg alcohol- neg Problems Problem Type SNOMED Code ICD Code Onset Dates Problem Status W/U Status Risk Notes Problem Hypercalcemia (03520209) Hypercalcemia (E83.52) Active confirmed Problem Essential hypertensi on (07715726) Essential hypertension (I10) Active confirmed Problem Chronic kidney disea se (791932400) Chronic kidney disease (N18.9) Active confirmed Problem Atrophic vaginitis (05866896) Atrophic vaginitis (N95.2) Active confirmed Problem History of hematuria (072364883) History of hematuria (Z87.448) Active confirmed Problem Hyperparathyroidism due to renal insufficiency (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 It gave me error twice on 2 diffrent machines. Height-cm 157.48 cm 02/17/2025 Had a hard time reading the heart rate. It gave me error twice on 2 diffrent machines. Oximetry 93 % 02/17/2025 Had a hard time reading the heart rate. It gave me error twice on 2 diffrent machines. Blood pressure diastolic 83 mm Hg 02/17/2025 Had a hard time reading the heart rate. It gave me error twice on 2 diffrent machines. Weight-kg 102.9 kg 02/17/2025 Had a hard time reading the heart rate. It gave me error twice on 2 diffrent machines. Height 62 in 02/17/2025 Had a hard time reading the heart rate. It gave me error twice on 2 diffrent machines. Blood pressure systolic 128 mm Hg 02/17/2025 Had a hard time reading the heart rate. It gave me error twice on 2 diffrent machines. Weight 226.85 lbs 02/17/2025 Had a hard time reading the heart rate. It gave me error twice on 2 diffrent machines. BMI 41.49 kg/m2 02/17/2025 Had a hard time reading the heart rate. It gave me error twice on 2 diffrent machines. Procedures Procedure Date Ordered Date Performed Result Body Sit e PVR (Post Void Residual) 01/01/2025 01/01/2025 N/A Encounters Encounter Location Date Provider Diagnosis [facility] [address] [place] [address] 02/17/2025 Clarissa Alan Chronic kidney disease, stage 3b N18.32 ; Essential hypertension I10 ; Controlled gout M10.9 ; Hypercalcemia E83.52 ; Persistent proteinuria R80.1 and Hyperparathyroidism, 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 [facility] [address] [place] [address] 06/17/2024 Clarissa Alan Chronic kidney disease, stage 3b N18.32 ; Essential hypertension I10 ; Controlled gout M10.9 ; Hypercalcemia E83.52 and Persistent proteinuria R80.1 [facility] [address] [place] [address] 10/15/2024 Clarissa Alan Chronic kidney disease, stage 3b N18.32 ; Essential hypertension I10 ; Controlled gout M10.9 ; Hypercalcemia E83.52 ; Persistent proteinuria R80.1 and Hyperparathyroidism, 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 [facility] [address] [place] [address] [place] [address] 01/01/2025 Aydee Gutierrez Recurrent UTI N39.0 ; Atrophic vaginitis N95.2 and History of hematuria Z87.448 [facility] [address] [place] [address] [address] [place] [address] 12/04/2024 Aydee Gutierrez Recurrent UTI N39.0 ; Chronic kidney disease N18.9 and Atrophic vaginitis N95.2 [facility] [address] [place] [address] [address] [place] [address] 11/07/2024 Clarissa [facility] [address] [place] [address] [place] [address] 10/20/2024 Clarissa [email or web address] [address] [place] [address] [place] [address] 03/06/2025 [facility] [address] [place] [address] [place] [address] 2025 Clarissa Alan Chronic kidney disease, stage 3b N18.32 ; Essential hypertension I10 ; Controlled gout M10.9 and Hyperparathyroidism, 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 [facility] [address] [place] [address] 02/10/2025 Clarissa [facility] [address] [place] [address] [address] [place] [address] 12/06/2024 Rafa Gomez [facility] [address] [place] [address] [address] [place] [address] 12/04/2024 Aydee MayenAleman [facility] [address] [place] [address] [address] [place] [address] 11/12/2024 Rafa Gomez Assessments Encounter Date Diagnosis (ICD Code) Assessment Notes Treatment Notes Treatment Clinical Notes Section Notes 12/04/2024 Chronic kidney disease (ICD-10 - N18.9) 12/04/2024 Recurrent UTI (ICD-10 - N39.0) 02/17/2025 Chronic kidney disease, stage 3b (ICD-10 - N18.32) Chronic kidney disease stage IIIb is slightly above baseline. CKD likley d/t HTN, Age. Hypertension is controlled. Gout is controlled with allopurinol. PTH is at goal for CKD. Following with urology for freqent UTIs, currently with hematuria, proteinuria and few bacteria, but recently finished an antibiotic for UTI. 02/17/2025 Essential hypertension (ICD-10 - I10) High Blood Pressure: Care Instructions material was printed Chronic kidney disease stage IIIb is slightly above baseline. CKD likley d/t HTN, Age. Hypertension is controlled. Gout is controlled with allopurinol. PTH is at goal for CKD. Following with urology for freqent UTIs, currently with hematuria, proteinuria and few bacteria, but recently finished an antibiotic for UTI. 2025 Chronic kidney disease, stage 3b (ICD-10 - N18.32) 01/01/2025 Atrophic vaginitis (ICD-10 - N95.2) 01/01/2025 Recurrent UTI (ICD-10 - N39.0) 10/15/2024 Chronic kidney disease, stage 3b (ICD-10 - N18.32) Chronic kidney disease stage IIIb is stable. CKD likley d/t HTN, Age. Hypertension is controlled in clinic on current regimen. Gout is being treated with allopurinol. No hematuria or proteinuria on current UA and previous was likely due to UTI. PTH and vitamin D are at goal for CKD. Patient agreeable to urology appointment for recurrent UTIs. 06/17/2024 Chronic kidney disease, stage 3b (ICD-10 - N18.32) Chronic Kidney Disease: Care Instructions material was printed Chronic kidney disease stage IIIb based on current labs. Previous labs fluctuate between stage II-IIIa CKD. CKD likley d/t HTN, Age. Hypertension is controlled in clinic on current regimen. Gout is being treated with allopurinol. Hematuria and proteinuria likely due to recurrent UTIs. 06/17/2024 Essential hypertension (ICD-10 - I10) Chronic kidney disease stage IIIb based on current labs. Previous labs fluctuate between stage II-IIIa CKD. CKD likley d/t HTN, Age. Hypertension is controlled in clinic on current regimen. Gout is being treated with allopurinol. Hematuria and proteinuria likely due to recurrent UTIs. 10/15/2024 Essential hypertension (ICD-10 - I10) High Blood Pressure: Care Instructions material was printed Chronic kidney disease stage IIIb is stable. CKD likley d/t HTN, Age. Hypertension is controlled in clinic on current regimen. Gout is being treated with allopurinol. No hematuria or proteinuria on current UA and previous was likely due to UTI. PTH and vitamin D are at goal for CKD. Patient agreeable to urology appointment for recurrent UTIs. 01/01/2025 History of hematuria (ICD-10 - Z87.448) 02/17/2025 Controlled gout (ICD-10 - M10.9) Chronic kidney disease stage IIIb is slightly above baseline. CKD likley d/t HTN, Age. Hypertension is controlled. Gout is controlled with allopurinol. PTH is at goal for CKD. Following with urology for freqent UTIs, currently with hematuria, proteinuria and few bacteria, but recently finished an antibiotic for UTI. 2025 Essential hypertension (ICD-10 - I10) 12/04/2024 Atrophic vaginitis (ICD-10 - N95.2) 02/17/2025 Hypercalcemia (ICD-10 - E83.52) Chronic kidney disease stage IIIb is slightly above baseline. CKD likley d/t HTN, Age. Hypertension is controlled. Gout is controlled with allopurinol. PTH is at goal for CKD. Following with urology for freqent UTIs, currently with hematuria, proteinuria and few bacteria, but recently finished an antibiotic for UTI. 2025 Controlled gout (ICD-10 - M10.9) 10/15/2024 Controlled gout (ICD-10 - M10.9) Chronic kidney disease stage IIIb is stable. CKD likley d/t HTN, Age. Hypertension is controlled in clinic on current regimen. Gout is being treated with allopurinol. No hematuria or proteinuria on current UA and previous was likely due to UTI. PTH and vitamin D are at goal for CKD. Patient agreeable to urology appointment for recurrent UTIs. 06/17/2024 Controlled gout (ICD-10 - M10.9) Chronic kidney disease stage IIIb based on current labs. Previous labs fluctuate between stage II-IIIa CKD. CKD likley d/t HTN, Age. Hypertension is controlled in clinic on current regimen. Gout is being treated with allopurinol. Hematuria and proteinuria likely due to recurrent UTIs. 06/17/2024 Hypercalcemia (ICD-10 - E83.52) Chronic kidney disease stage IIIb based on current labs. Previous labs fluctuate between stage II-IIIa CKD. CKD likley d/t HTN, Age. Hypertension is controlled in clinic on current regimen. Gout is being treated with allopurinol. Hematuria and proteinuria likely due to recurrent UTIs. 02/17/2025 Persistent proteinuria (ICD-10 - R80.1) Chronic kidney disease stage IIIb is slightly above baseline. CKD likley d/t HTN, Age. Hypertension is controlled. Gout is controlled with allopurinol. PTH is at goal for CKD. Following with urology for freqent UTIs, currently with hematuria, proteinuria and few bacteria, but recently finished an antibiotic for UTI. 10/15/2024 Hypercalcemia (ICD-10 - E83.52) Chronic kidney disease stage IIIb is stable. CKD likley d/t HTN, Age. Hypertension is controlled in clinic on current regimen. Gout is being treated with allopurinol. No hematuria or proteinuria on current UA and previous was likely due to UTI. PTH and vitamin D are at goal for CKD. Patient agreeable to urology appointment for recurrent UTIs. 2025 Hyperparathyroid ism, secondary renal (ICD-10 - N25.81) 02/17/2025 Hyperparathyroid ism, secondary renal (ICD-10 - N25.81) Chronic kidney disease stage IIIb is slightly above baseline. CKD likley d/t HTN, Age. Hypertension is controlled. Gout is controlled with allopurinol. PTH is at goal for CKD. Following with urology for freqent UTIs, currently with hematuria, proteinuria and few bacteria, but recently finished an antibiotic for UTI. 10/15/2024 Persistent proteinuria (ICD-10 - R80.1) Chronic kidney disease stage IIIb is stable. CKD likley d/t HTN, Age. Hypertension is controlled in clinic on current regimen. Gout is being treated with allopurinol. No hematuria or proteinuria on current UA and previous was likely due to UTI. PTH and vitamin D are at goal for CKD. Patient agreeable to urology appointment for recurrent UTIs. 06/17/2024 Persistent proteinuria (ICD-10 - R80.1) Chronic kidney disease stage IIIb based on current labs. Previous labs fluctuate between stage II-IIIa CKD. CKD likley d/t HTN, Age. Hypertension is controlled in clinic on current regimen. Gout is being treated with allopurinol. Hematuria and proteinuria likely due to recurrent UTIs. 10/15/2024 Hyperparathyroid ism, secondary renal (ICD-10 - N25.81) Chronic kidney disease stage IIIb is stable. CKD likley d/t HTN, Age. Hypertension is controlled in clinic on current regimen. Gout is being treated with allopurinol. No hematuria or proteinuria on current UA and previous was likely due to UTI. PTH and vitamin D are at goal for CKD. Patient agreeable to urology appointment for recurrent UTIs. 06/17/2024 Other Continue curren t antihypertensives and monitor blood pressure daily with goal of less than 140/80. Patient instructed to call clinic if blood pressure not at goal range. Low-sodium diet. Renal dose medications for GFR of less than 60. Avoid nephrotoxins and NSAIDs. Stay well hydrated. Monitor proteinuria. Continue allopurinol for gout and monitor uric acid. Follow-up in 4 months with labs at [facility] in [place] Chronic kidney disease stage IIIb based on current labs. Previous labs fluctuate between stage II-IIIa CKD. CKD likley d/t HTN, Age. Hypertension is controlled in clinic on current regimen. Gout is being treated with allopurinol. Hematuria and proteinuria likely due to recurrent UTIs. 10/15/2024 Other Schedule urolog y appointment for recurrent UTIs. Continue current antihypertensives and monitor blood pressure daily with goal of less than 140/80. Patient instructed to call clinic if blood pressure not at goal range. Low-sodium diet. Renal dose medications for GFR of less than 60ml/min. Avoid nephrotoxins and NSAIDs. Stay well hydrated. Monitor proteinuria. Anxiety improved with the addition of lorazepam. Continue allopurinol for gout and monitor uric acid. Follow-up in 4-5 months with labs at [facility] in [place] Chronic kidney disease stage IIIb is stable. CKD likley d/t HTN, Age. Hypertension is controlled in clinic on current regimen. Gout is being treated with allopurinol. No hematuria or proteinuria on current UA and previous was likely due to UTI. PTH and vitamin D are at goal for CKD. Patient agreeable to urology appointment for recurrent UTIs. 12/04/2024 Other PATIENT TO FOLLOW UP IN 4 WEEKS WITH UA AND PVR PCR URINE TODAY PATIENT TO START VAGINAL ESTROGEN IF PATIENT CONTINUES TO BE INFECTED WILL REFER TO DR. TRUONG AND BRADLEY AGUILAR FOR RECURRENT UTI CAN COME TO CLINIC FOR NURSE VISIT IF THEY FEEL UTI SYMPTOMS FOR URINE CHECK, CALL FIRST. 01/01/2025 Other CONTINUE VAGINAL ESTROGEN - 1 GRAM, 2 X A WEEK CONTINUE TO MONITOR FOR S/S OF UTI CONTINUE TO MONITOR FOR HEMATURIA FOLLOW UP IN 6 MONTHS WITH UA AND PVR 02/17/2025 Other Follow-up with urology for recurrent UTIs. Continue current antihypertensives and monitor blood pressure daily with goal of less than 140/80. Patient instructed to call clinic if blood pressure not at goal range. Low-sodium diet. Renal dose medications for GFR of less than 60ml/min. Stay well hydrated. Avoid nephrotoxins and NSAIDs. Monitor proteinuria. Continue allopurinol for gout and monitor uric acid. Follow-up in 4 months with labs at [facility] in [place] Chronic kidney disease stage IIIb is slightly above baseline. CKD likley d/t HTN, Age. Hypertension is controlled. Gout is controlled with allopurinol. PTH is at goal for CKD. Following with urology for freqent UTIs, currently with hematuria, proteinuria and few bacteria, but recently finished an antibiotic for UTI. Plan Of Treatment Pending Test Test Name Order Date Albumin 09745 2025 Basic Metabolic Panel (BMP) 75791 2024 Hemoglobin 52796 2025 Magnesium (B) 00347 2025 Phosphorus (B) 87457 2025 Uric Acid (B) 37862 2025 Microalbumin (U) Random 77511 2025 Creatinine (U) 81135 2025 UA Reflex Micro, Reflex Cult 56332, 8101 5, 38025 2025 PTH Intact 19519 2025 Future Test Test Name Order Date Albumin 80941 10/12/2024 Basic Metabolic Panel (BMP) 26982 2024 Hemoglobin 95030 10/12/2024 Magnesium (B) 75569 10/12/2024 Phosphorus (B) 94487 10/12/2024 Protein (U) Random 31244 10/12/2024 Uric Acid (B) 89976 10/12/2024 Vitamin D Total (B) 97186 10/12/2024 Microalbumin (U) Random 41831 10/12/2024 Creatinine (U) 77216 10/12/2024 UA Reflex Micro, Reflex Cult 70305, 8101 5, 38407 10/12/2024 PTH Intact 27624 10/12/2024 Albumin 80087 06/06/2025 Basic Metabolic Panel (BMP) 59148 2025 Hemoglobin 64555 06/06/2025 Magnesium (B) 69292 06/06/2025 Phosphorus (B) 78107 06/06/2025 Protein (U) Random 31093 06/06/2025 Uric Acid (B) 97288 06/06/2025 Microalbumin (U) Random 69424 06/06/2025 Creatinine (U) 75344 06/06/2025 UA Reflex Micro, Reflex Cult 62639, 8101 5, 08373 06/06/2025 PTH Intact 19248 06/06/2025 Next Appt Details Provider Name:Humberto George, 06/18/2025 01:40:00 PM, [address] [place] [address] , [address], [place], [address], Provider Name:Aydee Ortiz, 07/03/2025 11:00:00 AM, [address] [place] [address] , [address], [place], [address], Insurance Providers Payer Name Payer Address Payer Phone Subscriber Number Group Number Insured Name Patient Relationship to Insured Coverage Start Date Coverage End Date [facility] Medicare Advantage PPO [address] [address] [place] [phone] [id number] GRAEME MCKEON Self - patient is the insured Medical (General) History Medical History History ICD Code High blood pressure Skin Cancer Asthma A-Fib High cholesterol Gout Depression Anxiety Season allergies Surgical History Surgery Date(Month/Year) Hysterectomy Hospitalization History Reason Date(Month/Year) See surgical hx
[2025-03-20 09:12] LABS: Hematocrit 38.5 % (36-47); Hemoglobin 11.90 g/dL (11.27-16.99); Mean Corpuscular HGB Conc 30.9 g/dL (30-55); Mean Corpuscular Hemoglobin 28.5 pg (27-33); Mean Corpuscular Volume 92.3 fl (85-98); Nucleated Red Blood Cells % 0 %; Platelet Count 236 10^3/cmm (157-399); Red Blood Count 4.17 10^6/uL (3.85-5.65); White Blood Count 6.76 10^3/uL (3.29-11.43)
[2025-03-20 09:28] VITALS: BP 199/92; PULSE 67; RESP 19; O2SAT 95
[2025-03-20 09:31] LABS: INR 1.31 (0.8-1.2); Partial Thromboplastin Time 30.5 SECONDS (23.9-36.7); Prothrombin Time 17.20 SECONDS (12.1-14.9)
[2025-03-20 09:32] LABS: Troponin(5th) Baseline 17 ng/L (0-10)
[2025-03-20 09:34] LABS: Alanine Aminotransferase 70 U/L (0-33); Albumin Level 4.1 g/dL (3.5-5.2); Alkaline Phosphatase 56 U/L (35-105); Anion Gap 18.4 (5-19); Aspartate Amino Transferase 100 U/L (0-32); Blood Urea Nitrogen 14 mg/dL (8-23); Calcium 10.2 mg/dL (8.5-10.5); Carbon Dioxide 26 mmol/L (22-29); Chloride 102 mmol/L (98-107); Globulin 3.4 g/dL (1.3-4.6); Glucose 167 mg/dL (65-115); Osmolality Calculated 298 mOsm/kg (285-295); Potassium 4.4 mmol/L (3.5-5.1); Sodium 142 mmol/L (136-145); Total Protein 7.5 g/dL (6.6-8.7)
[2025-03-20 09:59] LABS: Glucose Urine UA Negative (Normal); Nitrate Urine Negative (Negative); Specific Gravity, Urine 1.019 (1.005-1.030)
[2025-03-20 10:05] LABS: Add Urine Microscopic? YES; PCP Screen Urine Negative (Negative)
[2025-03-20 10:24] LABS: UA Slide Review UA Slide Review Perf
[2025-03-20] MEDS: cefTRIAXone 1,000 mg SDV 1000 MG IVP (10:38)
[2025-03-20 10:41] VITALS: BP 140/76; PULSE 61; RESP 17; O2SAT 94
--- NOTE | 2025-03-20 11:01 | ECG_ITS ---
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 Measurements Intervals [place] Rate: 58 P: 87 FL: 153 QRS: 15 QRSD: 101 T: -1 QT: 353 QTc: 350 Interpretive Statements SINUS BRADYCARDIA NONSPECIFIC T-WAVE ABNORMALITY Compared to ECG 03/20/2025 09:00:16 Atrial fibrillation no longer present T-wave abnormality still present Electronically Signed On 03-21-2025 19:45:42 HR REPRESENTATIVE by Julian Pitts M.D. [email or web address]
[2025-03-20 11:15] LABS: Troponin 5 2HR 15.22 ng/L (0-10)
[2025-03-20 11:17] LABS: Troponin 5 2HR Delta -1.78 ABS# (0-10)
--- NOTE | 2025-03-20 11:30 | W.ED.WEAKNES ---
HPI - Weakness General: Chief complaint: Weakness Stated complaint: Tightness in chest high BP Stroke like Symtoms Time Seen by Provider: 03/20/25 08:57 Source: patient Mode of arrival: ambulatory Limitations: no limitations History of Present Illness: 80-year-old female presents her family has a history of dementia states that since last night around 10:00 she has been having some slight dizziness along with some intermittent confusion that has since improved currently. She states she does have some dizziness when walking but does have a history of vertigo was able to ambulate with a walker. Patient is answering my questions here appropriately has had some mild chest pains but denies any chest pain currently. She has had a history of UTIs in the past as well. Related Data Home Medications ?Medication ?Instructions ?Recorded ?Confirmed fluticasone propionate 50 2 spray intranasal DAILY PRN 09/15/21 01/24/25 mcg/actuation nasal Allergy Symptoms spray,suspension (Flonase Allergy Relief) atorvastatin 20 mg tablet 20 mg PO BEDTIME 07/29/23 01/24/25 donepezil 10 mg tablet 10 mg PO DAILY 11/02/23 01/24/25 cholecalciferol (vitamin D3) 1,250 50,000 unit PO Q7D 04/21/24 01/24/25 mcg (50,000 unit) capsule rivaroxaban 20 mg tablet (Xarelto) 20 mg PO QAM 06/02/24 01/24/25 albuterol sulfate 90 mcg/actuation 2 puff inhalation Q6H 09/07/24 01/24/25 aerosol inhaler (Ventolin HFA) amiodarone 200 mg tablet 200 mg PO DAILY 09/07/24 01/24/25 budesonide-formoterol HFA 160 2 puff inhalation BID 09/07/24 01/24/25 mcg-4.5 mcg/actuation aerosol inhaler (Symbicort) icosapent ethyl 1 gram capsule 1 g PO DAILY 09/07/24 01/24/25 (Vascepa) estradiol 0.01% (0.1 mg/gram) See Rx Instructions .Route .COMPLEX 01/24/25 01/24/25 vaginal cream ketoconazole 2 % shampoo See Rx Instructions .Route .COMPLEX 01/24/25 01/24/25 vitamins with calcium 1 tab PO DAILY 01/24/25 01/24/25 no.72-iron 27 mg-folic acid 1 mg tablet ( Vitamins Plus Low Iron) Previous Rx's ?Medication ?Instructions ?Recorded isosorbide mononitrate 60 mg 60 mg PO QAM #100 tabs 05/13/24 tablet,extended release 24 hr hydralazine 25 mg tablet 25 mg PO BID #180 tabs 08/16/24 meclizine 12.5 mg tablet 12.5 mg PO TID PRN dizziness #20 09/16/24 tabs alprazolam 0.5 mg tablet 0.5 mg PO BID PRN stress 30 days 11/28/24 #60 tabs losartan 50 mg tablet 25 mg (1/2 x 50 mg) PO DAILY #180 01/25/25 tabs cephalexin 500 mg capsule 500 mg PO TID 7 days #21 caps 03/20/25 Allergies Allergy/AdvReac Type Severity Reaction Status Date / Time lisinopril Allergy coughing Verified 01/23/25 18:30 [facility] ED PFSH: Medical History (Updated 03/20/25 @ 11:31 by Luann Zepeda MD) Dizziness of unknown cause Reactive airway disease Memory loss UTI (urinary tract infection) Benign positional vertigo Benign hypertension Atrial fibrillation with rapid ventricular response Hypertriglyceridemia Exertional shortness of breath Hypertensive urgency Hypertension Generalized weakness Chest pain UTI (urinary tract infection) Bradycardia CAD (coronary artery disease) Dizziness Atrial fibrillation Essential tremor Generalized weakness Lactic acidosis Acute metabolic encephalopathy Sepsis Atrial fibrillation Urinary tract infection Elevated blood pressure reading Palpitation HTN (hypertension) Gout Dyslipidemia Melanoma Surgical History Hx of cataract extraction History of cholecystectomy Status post laparoscopic cholecystectomy (03/30/20) History of removal of ovarian cyst History of carpal tunnel release S/P complete hysterectomy H/O esophagogastroduodenoscopy 1977 H/O colonoscopy 2016 Family History Mother Melanoma Diabetes Stroke Father CAD (coronary artery disease) unknown age of onset, CA at 62 Cancer Family/Other Cancer Grandmother Cancer Brother Diabetes Denies family history of Clotting disorder Dementia Chronic kidney disease (CKD) Suicide Anesthesia complication Bleeding disorder Lung disease Social History (Updated 01/24/25 @ 02:06 by Kit Mata MD) Smoking and tobacco/nicotine status: never used tobacco/nicotine Alcohol intake: never Substance/Drug Use: never Additional social history: 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 Patient states she wants DNR status as discussed on 01/24/2025. Patient states that her mother needed CPR that she requested and never did think right after that Household members: spouse Marital status: Current occupational status: retired Physical Exam Const: COMMON NORMALS: no acute distress, patient oriented x3 and healthy appearing HENMT: COMMON NORMALS: normocephalic and atraumatic HEAD & SCALP: normocephalic and atraumatic Eye: COMMON NORMALS: Equal, round and reactive pupils present and EOMs intact bilaterally PUPIL: Yes Equal, round and reactive pupils present Neck/C-Spine: COMMON NORMALS: full ROM and supple Chest: COMMONS NORMALS: normal inspection of the chest and normal palpation of entire chest wall Resp: COMMON NORMALS: normal respiratory effort, No retractions, No use of accessory muscles and clear to auscultation bilaterally AUSCULTATION: clear to auscultation bilaterally Cardio: COMMON NORMALS: regular rate, regular rhythm and No murmurs present (Cardio) RATE: regular rate RHYTHM: regular rhythm GI: COMMON NORMALS: Normal to inspection, nondistended, normoactive bowel sounds present, Soft to palpation, non-tender and no masses PALPATION: Yes Soft to palpation Extremity: COMMON NORMALS: normal to inspection and full ROM Neuro: COMMON NORMALS: patient oriented x3, moves all extremities and no focal motor deficits Psych: COMMON NORMALS: mental status grossly normal, Normal thought process present and cooperative THOUGHT PROCESS: Normal thought process present Skin: COMMON NORMALS: no rashes or lesions noted and no wounds GENERAL SKIN EXAM: no rashes or lesions noted Course Vital Signs: Vital signs: Vital Signs Temperature 98.1 F 03/20/25 08:57 Pulse Rate 60 03/20/25 11:31 Respiratory Rate 20 H 03/20/25 11:31 Blood Pressure 140/76 03/20/25 10:41 Pulse Oximetry 94 03/20/25 11:31 Oxygen Delivery Me thod Room Air 03/20/25 10:41 MDM - Weakness Medical Decision Making Patient presents here with some confusion along with some dizziness that started last night. Differential includes CVA, infection, intracerebral hemorrhage. Patient's also had some atypical chest pain here as well. Did review labs showed no significant findings troponins were negative. She does have a urinary tract infection. Chest x-ray showed no acute abnormality was reviewed by me CT of her head showed no acute abnormality. Performed EKG that showed normal sinus rhythm heart rate [address] elevation QRS 87 QTc 337. Patient's NIH here was 0 she has had no signs of stroke or intracerebral hemorrhage. Patient is able to ambulate with a walker does have chronic intermittent vertigo and feels much improved here after meclizine. Did give her IV Rocephin here will prescribe her Keflex. She states she feels much improved would like to go home and I feel she is stable for discharge I did go over all the findings with family she has follow-up PCP in 2 to 4 days they understand agree to plan. Medical Records I reviewed the patient's medical records. Lab Data 03/20/25 09:07 03/20/25 09:07 Radiology Impressions Chest X-Ray 03/20/25 09:01 IMPRESSION: 1. No acute cardiopulmonary finding. Head CT 03/20/25 09:01 IMPRESSION: 1. No acute intracranial hemorrhage or edema. 2. Mild cerebral and cerebellar atrophy and small vessel disease. Notified Luann Zepeda MD at 03/20/2025 9:22 AM. Laboratory Results WBC 6.76 10^3/uL (3.29-11.43) 03/20/25 09:07 RBC 4.17 10^6/uL (3.85-5.65) 03/20/25 09:07 Hgb 11.90 g/dL (11.27-16.99) 03/20/25 09:07 Hct 38.5 % (36-47) 03/20/25 09:07 MCV 92.3 fl (85-98) 03/20/25 09:07 MCH 28.5 pg (27-33) 03/20/25 09:07 MCHC 30.9 g/dL (30-55) 03/20/25 09:07 RDW 15.1 % (12.1-15.1) 03/20/25 09:07 Plt Count 236 10^3/cmm (157-399) 03/20/25 09:07 MPV 10.5 fL (7.4-10.4) H 03/20/25 09:07 Neut % (Auto) 56.1 % 03/20/25 09:07 Lymph % (Auto) 25.6 % 03/20/25 09:07 [place] % (Auto) 11.5 % 03/20/25 09:07 Eos % (Auto) 5.3 % 03/20/25 09:07 Baso % (Auto) 1.2 % 03/20/25 09:07 Neut # (Auto) 3.79 10^3/uL (1.8-7.7) 03/20/25 09:07 Lymph # (Auto) 1.7 10^3/uL (0.8-4.8) 03/20/25 09:07 [place] # (Auto) 0.8 10^3/uL (0.2-0.9) 03/20/25 09:07 Eos # (Auto) 0.4 10^3/uL (0.0-0.8) 03/20/25 09:07 Baso # (Auto) 0.1 10^3/uL (0.0-0.1) 03/20/25 09:07 Nucleated RBC % (auto) 0 % 03/20/25 09:07 Nucleated RBCs # 0.0 /100WBC 03/20/25 09:07 PT 17.20 SECONDS (12.1-14.9) H 03/20/25 09:07 INR 1.31 (0.8-1.2) H 03/20/25 09:07 APTT 30.5 SECONDS (23.9-36.7) 03/20/25 09:07 Sodium 142 mmol/L (136-145) 03/20/25 09:07 Potassium 4.4 mmol/L (3.5-5.1) 03/20/25 09:07 Chloride 102 mmol/L (98-107) 03/20/25 09:07 Carbon Dioxide 26 mmol/L (22-29) 03/20/25 09:07 Anion Gap 18.4 (5-19) 03/20/25 09:07 BUN 14 mg/dL (8-23) 03/20/25 09:07 Creatinine 1.0 mg/dL (0.5-0.9) H 03/20/25 09:07 GFR Calculation Not Reportable 03/20/25 09:07 Glucose 167 mg/dL (65-115) H 03/20/25 09:07 POC Glucose 169 mg/dL (70-110) H 03/20/25 09:03 Calculated Osmolality 298 mOsm/kg (285-295) H 03/20/25 09:07 Calcium 10.2 mg/dL (8.5-10.5) 03/20/25 09:07 Total Bilirubin 0.5 mg/dL (0.15-1.2) 03/20/25 09:07 AST 100 U/L (0-32) H 03/20/25 09:07 ALT 70 U/L (0-33) H 03/20/25 09:07 Alkaline Phosphatase 56 U/L (35-105) 03/20/25 09:07 Troponin T Baseline 17 ng/L (0-10) H 03/20/25 09:07 Troponin T 120 Minute 15.22 ng/L (0-10) H 03/20/25 10:44 Delta Troponin T -1.78 ABS# (0-10) L 03/20/25 10:44 Total Protein 7.5 g/dL (6.6-8.7) 03/20/25 09:07 Albumin 4.1 g/dL (3.5-5.2) 03/20/25 09:07 Globulin 3.4 g/dL (1.3-4.6) 03/20/25 09:07 Urine Color Dark yellow (Yellow) A 03/20/25 09: Urine Appearance Cloudy (CLEAR) A 03/20/25 09:22 Urine pH 5.5 (5-7) 03/20/25 09:22 Ur Specific [place] 1.019 (1.005-1.030) 03/20/25 09: Urine Protein 1+ (Negative) A 03/20/25 09: Urine Glucose (UA) Negative (Normal) 03/20/25 09: Urine Ketones Negative (Negative) 03/20/25 09: Urine Blood 3+ (Negative) A 03/20/25 09: Urine Nitrate Negative (Negative) 03/20/25 09: Urine Bilirubin Negative (Negative) 03/20/25 09:22 Urine Urobilinogen 1.0 mg/dL (Negative) 03/20/25 09:22 Ur Leukocyte Esterase 1+ (Negative) A 03/20/25 09:22 Urine RBC >100 /hpf (0-2) H 03/20/25 09:22 Urine WBC 21-50 /hpf (0-5) H 03/20/25 09:22 Ur Squamous Epith Cells 11-20 /hpf (0-5) H 03/20/25 09:22 Amorphous Sediment Not Reportable 03/20/25 09:22 Urine Bacteria None seen /hpf (NONE) 03/20/25 09:22 Hyaline Casts 1.21 /lpf 03/20/25 09:22 Urine Opiates Screen Negative ng/mL (Negative) 03/20/25 09:22 Ur Barbiturates Screen Negative ng/mL (Negative) 03/20/25 09:22 Ur Phencyclidine Scrn Negative ng/mL (Negative) 03/20/25 09:22 Ur Amphetamines Screen Negative ng/mL (Negative) 03/20/25 09:22 U Benzodiazepines Scrn Positive ng/mL (Negative) H 03/20/25 09:22 Urine Cocaine Screen Negative ng/mL (Negative) 03/20/25 09:22 U Marijuana (THC) Screen Negative ng/mL (Negative) 03/20/25 09:22 All radiology interpretation(s) finalized by discharge EKG Data EKG 1: I personally reviewed and interpreted this EKG as follows: EKG interpretation date: 03/20/25 EKG interpretation time: 09:00 Interpretation: nsr hr [address] elevation qrs 87 qtc 337 EKG 2: I personally reviewed and interpreted this EKG as follows: EKG interpretation date: 03/20/25 EKG interpretation time: 11:05 Interpretation: sinus lalo hr [address] elevation qrs 101 qtc 351 Discharge Plan Discharge Patient Disposition: Home Clinical Impression: Dizziness Acute cystitis Qualifiers: Hematuria presence: without hematuria Qualified Code(s): N30.00 - Acute cystitis without hematuria Condition: Stable Prescriptions: New cephalexin 500 mg capsule 500 mg PO TID 7 Days Qty: 21 0RF No Action fluticasone propionate [Flonase Allergy Relief] 50 mcg/actuation spray,suspension 2 spray intranasal DAILY PRN (Reason: Allergy Symptoms) Rx Instructions: administer into each nostril isosorbide mononitrate 60 mg tablet extended release 24 hr 60 mg PO QAM Qty: 100 3RF hydralazine 25 mg tablet 25 mg PO BID Qty: 180 2RF alprazolam 0.5 mg tablet 0.5 mg PO BID PRN (Reason: stress) 30 Days Qty: 60 0RF atorvastatin 20 mg tablet 20 mg PO BEDTIME cholecalciferol (vitamin D3) 1,250 mcg (50,000 unit) capsule 50,000 unit PO Q7D Rx Instructions: Monday Xarelto 20 mg tablet 20 mg PO QAM albuterol sulfate [Ventolin HFA] 90 mcg/actuation HFA aerosol inhaler 2 puff INHALATION Q6H budesonide-formoterol [Symbicort] 160-4.5 mcg/actuation HFA aerosol inhaler 2 puff INHALATION BID amiodarone 200 mg tablet 200 mg PO DAILY Rx Instructions: TAKE 1 TABLET BY MOUTH EVERY DAY icosapent ethyl [Vascepa] 1 gram capsule 1 g PO DAILY Rx Instructions: take 1 capsule BY MOUTH EVERY DAY meclizine 12.5 mg tablet 12.5 mg PO TID PRN (Reason: dizziness) Qty: 20 0RF donepezil 10 mg tablet 10 mg PO DAILY ketoconazole 2 % shampoo See Rx Instructions .ROUTE .COMPLEX Rx Instructions: shampoo SCALP 1-2 times a week NEEDED. let sit ON SCALP FOR FIVE minutes before rinsing estradiol 0.01 % (0.1 mg/gram) cream See Rx Instructions .ROUTE .COMPLEX Rx Instructions: USE DIRECTED VAGINALLY TWICE A WEEK Vitamin Plus Low Iron 27 mg iron- 1 mg tablet 1 tab PO DAILY losartan 50 mg tablet 25 mg PO DAILY Qty: 180 3RF Discharge Orders: Discharge ED (Routine); Ordered 03/20/25 Ordered By: Luann Zepeda Referrals: Bonnie Fleming FNP [Primary Care Provider, Unknown] - 4-7 days Discharge Diet: Advance as tolerated Discharge Activity: Resume usual activity Patient Instructions: Urinary Tract Infection in Women (ED) Print Language: Yoruba Coding Level of Care Code 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
[2025-03-20 11:31] VITALS: PULSE 60; RESP 20; O2SAT 94
[2025-03-20 11:32] VITALS: BP 168/74; PULSE 60; O2SAT 97
== END 2025-03-20 11:42 | disposition home or self-care (01) ==
PROVIDERS: Emergency Provider Emergency Medicine; PCP Nurse Practitioner Family
DX: N30.00 Acute cystitis without hematuria (principal); R42 Dizziness and giddiness; I10 Essential (primary) hypertension; E78.5 Hyperlipidemia, unspecified
CPT/HCPCS: 36415; 36416; 70450; 71045; 80053; 80306; 81001; 82962; 84484; 85025; 85610; 85730; 87077; 87086; 87186; 93005; 96374; 99285; J0696; J8597

== ENCOUNTER 2025-03-31 00:56 | Emergency (ER) | payer MEDICARE, SELFPAY ==
[2025-03-31 00:59] VITALS: PULSE 77; RESP 18; TEMP 36.6; O2SAT 94; BMI 42.0
--- OUTSIDE RECORDS SUMMARY | 2025-03-31 01:00 | XMS_ITS | Data Portability ---
Author Organization [facility] Address [address] [address] Care Team Providers Care Dietary Aide Teacher Name Role Phone AMISHA GUERRA Primary Care Provider NATALIE Erazo Referring Provider [phone] Assessment Encounter Date Assessment Date Assessment LastModified [...] 11 025 [facility], [address] [facility], [facility], [place], [address], 03/13/2025 12:46:27 CMP, serum or plasma 2024 025 [facility], [address], [place] [address], [place], [address], 03/13/2025 13:00:06 CBC 2024 025 [facility], [address], [address], [place], [address], 03/13/2025 12:05:17 urinaly sis, complet e 2024 025 [facility], [address], [place] [address], [place], [address], 03/13/2025 13:43:59 culture , urine [address] [facility], [address] [place] [address], [address], [place], [address], 03/14/2025 21:15:29 hemoglo bin A1C/hem oglobin total, QN, blood 2024 025 [facility], [address], [place] [address], [place], [address], 12/10/2024 11:12:52 culture , urine [address] [facility], [address] [place] [address], [address], [place], [address], 10/30/2024 20:36:09 urinaly sis, dipstic k [address] [facility] ([facility] [address] [place], [address], 10/29/2024 14:13:45 microal bumin/c reatini ne, mass ratio, urine [address] [facility], [address] [place], [address], 10/11/2024 06:59:17 BMP, serum or plasma 2024 025 [facility], [address], [address], [place], [address], 10/07/2024 16:12:21 CBC - all labs ordered by [facility]/ will fax YF 2024 025 [facility], [address], [address], [place], [address], 10/07/2024 15:33:46 magnesi um, serum or plasma 2024 025 [employer] [facility], [address] [facility], [place], [address], 10/08/2024 09:08:16 phospho baldo, serum or plasma 2024 025 [employer] [facility], [address], [place], [address], 10/08/2024 09:08:18 uric acid, serum or plasma 2024 025 [employer] [facility], [address], [place], [address], 10/08/2024 09:08:19 protein , total, urine 2024 025 [employer] [facility], [address] [facility] [address], [address] [place], [address], 10/11/2024 06:59:18 urinaly sis, complet e 2024 025 [facility], [address], [address], [place], [address], 10/08/2024 16:30:50 culture , urine 2024 025 [employer] [facility], [address] [facility] [address], [address] [place], [address], 10/10/2024 23:00:41 vitamin D, 25-hydr oxy, total, serum 2024 025 [employer] [facility], [address] [place], [address], 10/08/2024 09:08:21 albumin /globul in, ratio, serum [address] [facility] ([facility]), [address] [place], [address], 10/07/2024 16:11:46 PTH (parath yroid hormone ), intact, serum or plasma 2024 025 [employer] [facility], [address] [facility], [place], [address], 10/08/2024 09:08:20 Referral None recorde d. Procedures None recorde d. Surgeries None recorde d. Imaging None recorde d. Medication Orders Clariti n 10 mg tablet 2024 025 [facility], [address] [place] [address], [address], 03/14/2025 13:48:37 allopur inol 300 mg tablet 2024 025 [facility], [address] [place], [address], 03/14/2025 13:48:37 cefdini r 300 mg capsule 2024 025 [facility] #[id number], [address], [address], 11/10/2024 05:00:50 Patient TargetsNo targets recorded. Patient Instructions Encounter Date Encounter Id Patient Instructions Last Modified By Organization Details Last Modified Time 12/10/2024 [id number] Call or return for questions or concerns. Not available 12/10/2024 10:56:04 03/13/2025 [id number] preventing falls : care instructions Not available 03/13/2025 11:03:25 well visit, over 65: care instructions Not available 03/13/2025 11:03:25 Call or return for questions or concerns. Not available 03/13/2025 10:50:43 Reason for Referral None Reported. Results Created Date Observation Date Name Description Value Unit Range Abnormal Flag Note LastModifiedBy Organization Detail LastModifiedTime 10/08/1910/07/2024 CBC WBC 7.8 x10 4.0-10 .5 Not Available [facility] [address] [facility], [place], [address], 10/07/2024 15:33:46 10/08/1910/07/2024 CBC RBC 4.21 x10 3.50-5 .50 Not Available [facility] [address], [place], [address], 10/07/2024 15:33:46 10/08/1910/07/2024 CBC HGB 12.9 g/dL 12.0-1 6.0 Not Available [facility] [address] [facility] [address], [place], [address], 10/07/2024 15:33:46 10/08/1910/07/2024 CBC HCT 40.3 % 37.0-4 7.0 Not Available [facility] [address], [place], [address], 10/07/2024 15:33:46 10/08/1910/07/2024 CBC MCV 95.8 fL 80.0-9 9.9 Not Available [facility] [address] [facility] [address], [place], [address], 10/07/2024 15:33:46 10/08/19 25 10/07/2024 CBC MCH 30.7 pg 27.0-3 2.0 Not Available [facility] [address] [facility] 1, [place], [address], 10/07/2024 15:33:46 10/08/19 25 10/07/2024 CBC MCHC 32.1 g/dL 32.0-3 6.0 Not Available [facility] [address] [facility] 1, [place], [address], 10/07/2024 15:33:46 10/08/19 25 10/07/2024 CBC RDW 13.4 % 11.5-1 4.5 Not Available [facility] [address] [facility] [address], [place], [address], 10/07/2024 15:33:46 10/08/19 25 10/07/2024 CBC plt 227.9 x10 140.0- 451.0 Not Available [facility] [address] [facility] [address], [place], [address], 10/07/2024 15:33:46 10/08/19 25 10/07/2024 CBC lymphocytes % 29.3 % 20.0-5 0.0 Not Available [facility] [address] [facility] [address], [place], [address], 10/07/2024 15:33:46 10/08/19 25 10/07/2024 CBC granulcytes % 55.0 % 30.0-7 0.0 Not Available [facility] [address] [facility] Caitlin [facility] 1, [place], [address], 10/07/2024 15:33:46 10/08/19 25 10/07/2024 CBC monocytes % 12.2 % 2.0-16 .0 Not Available [facility] [address] [facility] [address] [facility] 1, [place], [address], 10/07/2024 15:33:46 10/08/19 25 10/07/2024 CBC granulcytes# 4.3 x10 Not [facility] [address] [facility] [address], [place], [address], 10/07/2024 15:33:46 10/08/19 25 10/07/2024 CBC lymphocytes # 2.3 x10 Not Available [facility] [address] [facility] 1, [place], [address], 10/07/2024 15:33:46 10/08/19 25 10/07/2024 CBC monocytes # 1.0 x10 Not Avai lable [facility] [address] [facility] [address], [place], [address], 10/07/2024 15:33:46 10/08/19 25 10/07/2024 BMP (FEMA LE) glucose 122.0 mg/dL 60.0-9 9.0 high Not Available [facility] [address] [facility], [place], [address], 10/07/2024 16:12:21 10/08/19 25 10/07/2024 BMP (FEMA LE) BUN (blood urea nitrogen) 17.0 mg/dL 10.0-2 6.0 Not Available [facility] [address] [facility] 1, [place], [address], 10/07/2024 16:12:21 10/08/19 25 10/07/2024 BMP (FEMA LE) creatinine (serum) 1.3 mg/dL 0.4-1. 5 Not Available [facility] [address] [facility] 1, [place], [address], 10/07/2024 16:12:21 10/08/19 25 10/07/2024 BMP (FEMA LE) BUN/creatini ne ratio 13.08 ratio Not Available [facility] [address] [facility] 1, [place], [address], 10/07/2024 16:12:21 10/08/19 25 10/07/2024 BMP (FEMA LE) calcium 10.1 mg/dL 8.4-10 .5 Not Available [facility] [address] [facility], [place], [address], 10/07/2024 16:12:21 10/08/19 25 10/07/2024 BMP (FEMA LE) sodium 142.0 mmol/ L 136.0- 145.0 Not Available [facility] [address] [facility], [place], [address], 10/07/2024 16:12:21 10/08/19 25 10/07/2024 BMP (FEMA LE) potassium 4.0 mmol/ L 3.5-5. 1 Not Available [facility] [address] [facility], [place], [address], 10/07/2024 16:12:21 10/08/19 25 10/07/2024 BMP (FEMA LE) chloride 107.0 mmol/ L 98.0-1 10.0 normal Not Available [facility] [address] [facility], [place], [address], 10/07/2024 16:12:21 10/08/19 25 10/07/2024 BMP (FEMA LE) C02 26.0 mmol/ L 22.0-3 1.0 Not Available [facility] [address] [facility] 1, [place], [address], 10/07/2024 16:12:21 10/08/19 25 10/07/2024 BMP (FEMA LE) anion gap 9.0 calc Not Available [facility] [address] [place] [address], [place], [address], 10/07/2024 16:12:21 10/09/19 25 10/08/2024 URINA LYSIS WITH MICRO color YELLOW Not Available [facility] [address] [place] [address], [place], [address], 10/08/2024 16:30:50 10/09/19 25 10/08/2024 URINA LYSIS WITH MICRO clarity CLOUDY Not Available [facility] [address], [place], [address], 10/08/2024 16:30:50 10/09/19 25 10/08/2024 URINA LYSIS WITH MICRO glu NEGATI VE Not Available [facility] [address] [place] [address], [place], [address], 10/08/2024 16:30:50 10/09/19 25 10/08/2024 URINA LYSIS WITH MICRO bili NEGATI VE Not Available [facility] [address], [place], [address], 10/08/2024 16:30:50 10/09/19 25 10/08/2024 URINA LYSIS WITH MICRO ket NEGATI VE Not Available [facility] [address] [place] [address], [place], [address], 10/08/2024 16:30:50 10/09/19 25 10/08/2024 URINA LYSIS WITH MICRO S.g >1.030 1.005- 1.025 high > Not Available [facility] [address] [place] [address], [place], [address], 10/08/2024 16:30:50 10/09/19 25 10/08/2024 URINA LYSIS WITH MICRO pH 5.5 5.0-7. 0 Not Available [facility] [address], [place], [address], 10/08/2024 16:30:50 10/09/19 25 10/08/2024 URINA LYSIS WITH MICRO pro NEGATI VE Not Available [facility] [address] [place] [address], [place], [address], 10/08/2024 16:30:50 10/09/19 25 10/08/2024 URINA LYSIS WITH MICRO uro 0.2 E.U./D L Not Available [facility] [address] [place] [address], [place], [address], 10/08/2024 16:30:50 10/09/19 25 10/08/2024 URINA LYSIS WITH MICRO nit NEGATI VE Not Available [facility] [address] [place] [address], [place], [address], 10/08/2024 16:30:50 10/09/19 25 10/08/2024 URINA LYSIS WITH MICRO blo NEGATI VE Not Available [facility] [address] [place] [address], [place], [address], 10/08/2024 16:30:50 10/09/19 25 10/08/2024 URINA LYSIS WITH MICRO noe NEGATI VE Not Available [facility] [address] [place] [address], [place], [address], 10/08/2024 16:30:50 10/09/19 25 10/08/2024 URINA LYSIS WITH MICRO WBC 3-4 Not Available [facility] [address] [place] [address], [place], [address], 10/08/2024 16:30:50 10/09/19 25 10/08/2024 URINA LYSIS WITH MICRO RBC NEGATI VE Not Available [facility] [address] [place] [address], [place], [address], 10/08/2024 16:30:50 10/09/19 25 10/08/2024 URINA LYSIS WITH MICRO epi cells 1-2 Not Available [facility] [address] [facility] 1, [place], [address], 10/08/2024 16:30:50 10/09/19 25 10/08/2024 URINA LYSIS WITH MICRO bacteria 3+++ BACTER IA abnormal Not Available [facility] [address] [facility] [address], [place], [address], 10/08/2024 16:30:50 10/09/19 25 10/08/2024 URINA LYSIS WITH MICRO other 4-6 CALCIU M OXALAT E NIYAH LS abnormal Not Available [facility] [address] [facility] 1, [place], [address], 10/08/2024 16:30:50 10/08/19 25 10/08/2024 MAGNE SIUM magnesium 1.8 mg/dL 1.5-2. 5 normal Not Available [facility] [address], [address], 10/08/2024 09:08:16 10/08/19 25 10/08/2024 PHOSP HATE ( PHOSP HORUS ) phosphate ( phosphorus) 3.2 mg/dL 2.1-4. 3 normal Not Available [facility] [address] [place], [address], 10/08/2024 09:08:18 10/08/19 25 10/08/2024 URIC ACID uric acid 8.5 mg/dL 2.5-7. 0 high Thera peuti c targe t for gout patie nts: <6.0 mg/dL Not Available [facility] [address] [place], [address], 10/08/2024 09:08:19 10/08/1910/08/2024 PTH, INTAC T WITHO [...] or Low Aimee l High Not Available [facility] [address] [place], [address], 10/08/2024 09:08:20 10/08/19 25 10/08/2024 VITAM IN [...] /MS is recom avila d: order code 76894 (ace ents >2yrs ). See Note 1 Note 1 For addit ional infor osmin apodaca refer to http: //ariana Soto gnost ics.c om/fa q/FAQ 199 (This link is being provi ded for infor linwood tomas/ shira zuniga purpo ses only. ) Not Available [facility] [address] [place], [address], 10/08/2024 09:08:21 10/10/19 25 10/10/2024 CULTU RE, URINE , ROUTI NE culture, urine, routine SEE NOTE CULTU RE, URINE , ROUTI NE Micro Numbe r: [id number] Test Statu s: Final Speci men [...] Cultu re Trans port Tube. Not Available [place] [address] [place], [address], 10/10/2024 23:00:41 10/10/19 25 10/11/2024 ALBUM IN, RANDO M URINE W/CRE ATINI NE creatinine, random urine 212 mg/dL 20-275 normal Not Available [address] [address] [place], [address], 10/11/2024 06:59:17 10/10/19 25 10/11/2024 ALBUM IN, RANDO M URINE W/CRE ATINI NE albumin, urine 5.8 mg/dL see note: normal Refer ence Range : Refer ence Range Not estab lishe d Not Available [address] [address] [place], [address], 10/11/2024 06:59:17 10/10/19 25 10/11/2024 ALBUM IN, [...] ostic categ ory. Not Available [facility] [address] [address] [place], [address], 10/11/2024 06:59:17 10/10/19 25 10/11/2024 URINE PROTE IN, TOTAL , RANDO M (W/O CREAT ININE ) protein, total, random ur 25 mg/dL 5-24 high Not Available [facility] [address] [address] [place], [address], 10/11/2024 06:59:18 10/16/19 25 10/15/2024 album in/gl obuli n, ratio , serum albumin 4.4 g/dL 3.5-5. 5 normal Not Available [facility] ([facility]) [address] [place] [address], [address], 10/07/2024 14:58:53 10/30/19 25 10/30/2024 CULTU RE, URINE , ROUTI NE culture, urine, routine SEE NOTE CULTU RE, URINE , ROUTI NE Micro Numbe r: [id number] Test Statu s: Final Speci men [...] recom avila d. Not Available [facility] [address] [place], [address], 10/30/2024 20:36:09 10/30/19 25 10/29/2024 urina lysis , dipst ick Leukocytes Trace Not Available [facility] ([facility]) [address] [place], [address], 10/29/2024 13:56:16 10/30/19 25 10/29/2024 urina lysis , dipst ick Nitrite negati ve Not Available [facility] ([facility]) [address] [place], [address], 10/29/2024 13:56:16 10/30/19 25 10/29/2024 urina lysis , dipst ick Urobilinogen .2 Not Available [facility] ([facility]) [address] [place], [address], 10/29/2024 13:56:16 10/30/19 25 10/29/2024 urina lysis , dipst ick Protein Negati ve Not Available [facility] ([facility]) [address] [place], [address], 10/29/2024 13:56:16 10/30/19 25 10/29/2024 urina lysis , dipst ick pH 5.5 Not Available [facility] ([facility]) [address] [place], [address], 10/29/2024 13:56:16 10/30/19 25 10/29/2024 urina lysis , dipst ick Blood Negati ve Not Available [facility] ([facility]) [address] [place], [address], 10/29/2024 13:56:16 10/30/19 25 10/29/2024 urina lysis , dipst ick Specific [place] 1.030 Not Available [facility] ( [facility]) [address] [place], [address], 10/29/2024 13:56:16 10/30/19 25 10/29/2024 urina lysis , dipst ick Ketone Negati ve Not Available [facility] ([facility]) [address] [place], [address], 10/29/2024 13:56:16 10/30/19 25 10/29/2024 urina lysis , dipst ick Bilirubin Negati ve Not Available [facility] ([facility]) [address] [place], [address], 10/29/2024 13:56:16 10/30/19 25 10/29/2024 urina lysis , dipst ick Glucose Negati ve Not Available [facility] ([facility]) [address] [place], [address], 10/29/2024 13:56:16 12/04/19 25 12/10/2024 HBA1C hemaglobin A1C 6.6 4.2-6. 5 high Not Available [facility] [address] [facility] [address], [place], [address], 12/10/2024 11:12:52 03/13/2003/13/2025 CBC WBC 7.9 x10 4.0-10 .5 Not Available [facility] [address] [facility] [address], [place], [address], 03/13/2025 12:05:17 03/13/2003/13/2025 CBC RBC 4.27 x10 3.50-5 .50 Not Available [facility] [address] [facility] [address], [place], [address], 03/13/2025 12:05:17 03/13/20 25 03/13/2025 CBC HGB 12.6 g/dL 12.0-1 6.0 Not Available [facility] [address] [facility] [address], [place], [address], 03/13/2025 12:05:17 03/13/2003/13/2025 CBC HCT 39.3 % 37.0-4 7.0 Not Available [facility] [address] [facility] 1, [place], [address], 03/13/2025 12:05:17 03/13/2003/13/2025 CBC MCV 92.0 fL 80.0-9 9.9 Not Available [facility] [address] [facility] 1, [place], [address], 03/13/2025 12:05:17 03/13/2003/13/2025 CBC MCH 29.5 pg 27.0-3 2.0 Not Available [facility] [address] [facility] 1, [place], [address], 03/13/2025 12:05:17 03/13/2003/13/2025 CBC MCHC 32.0 g/dL 32.0-3 6.0 Not Available [facility] [address] [facility] 1, [place], [address], 03/13/2025 12:05:17 03/13/20 25 03/13/2025 CBC RDW 14.6 % 11.5-1 4.5 high Not Available [facility] [address] [facility] 1, [place], [address], 03/13/2025 12:05:17 03/13/2003/13/2025 CBC plt 255.9 x10 140.0- 451.0 Not Available [facility] [address] [facility] 1, [place], [address], 03/13/2025 12:05:17 03/13/2003/13/2025 CBC lymphocytes % 24.2 % 20.0-5 0.0 Not Available [facility] [address] [facility] 1, [place], [address], 03/13/2025 12:05:17 03/13/20 25 03/13/2025 CBC granulcytes % 60.0 % 30.0-7 0.0 Not Available [facility] [address] [facility] 1, [place], [address], 03/13/2025 12:05:17 03/13/20 25 03/13/2025 CBC monocytes % 10.3 % 2.0-16 .0 Not Available [facility] [address] [facility] 1, [place], [address], 03/13/2025 12:05:17 03/13/2003/13/2025 CBC granulcytes# 4.8 x10 Not Anabelle il[facility] [address] [facility] 1, [place], [address], 03/13/2025 12:05:17 03/13/2003/13/2025 CBC lymphocytes # 1.9 x10 Not Available [facility] [address] [facility] 1, [place], [address], 03/13/2025 12:05:17 03/13/20 25 03/13/2025 CBC monocytes # 0.8 x10 Not Avai lable [facility] [address] [facility] 1, [place], [address], 03/13/2025 12:05:17 03/13/2003/13/2025 HBA1C hemaglobin A1C 6.3 4.2-6. 5 Not Available [facility] [address] [facility] 1, [place], [address], 03/13/2025 12:46:27 03/13/20 25 03/13/2025 CMP (FEMA LE) glucose 198.0 mg/dL 60.0-9 9.0 high Not Available [facility] [address] [facility], [place], [address], 03/13/2025 13:00:06 03/13/2003/13/2025 CMP (FEMA LE) BUN (blood urea nitrogen) 21.0 mg/dL 10.0-2 6.0 Not Available [facility] [address] [facility] 1, [place], [address], 03/13/2025 13:00:06 03/13/2003/13/2025 CMP (FEMA LE) creatinine (serum) 1.5 mg/dL 0.4-1. 5 Not Available [facility] [address] [facility] 1, [place], [address], 03/13/2025 13:00:06 03/13/2003/13/2025 CMP (FEMA LE) BUN/creatini ne ratio 14.00 ratio Not Available [facility] [address] [facility] 1, [place], [address], 03/13/2025 13:00:06 03/13/2003/13/2025 CMP (FEMA LE) eGFR calculated 35.5 Not Available [facility] [address] [facility], [place], [address], 03/13/2025 13:00:06 03/13/2003/13/2025 CMP (FEMA LE) total protein 8.5 g/dL 6.0-8. 5 Not Available [facility] [address] [facility] [address], [place], [address], 03/13/2025 13:00:06 03/13/2003/13/2025 CMP (FEMA LE) total bilirubin 0.8 mg/dL 0.2-1. 3 Not Available [facility] [address] [facility] [address], [place], [address], 03/13/2025 13:00:06 03/13/20 25 03/13/2025 CMP (FEMA LE) albumin 4.3 g/dL 3.5-5. 5 Not Available [facility] [address] [facility] 1, [place], [address], 03/13/2025 13:00:06 03/13/2003/13/2025 CMP (FEMA LE) globulin 4.2 calc Not Available [facility] [address] [facility] [address], [place], [address], 03/13/2025 13:00:06 03/13/2003/13/2025 CMP (FEMA LE) AST (SGOT) 86.0 U/L 0.0-46 .0 high Not Available [facility] [address] [facility] [address], [place], [address], 03/13/2025 13:00:06 03/13/2003/13/2025 CMP (FEMA LE) altv (SGPT) 63.0 U/L 13.0-6 9.0 normal Not Available [facility] [address] [facility] 1, [place], [address], 03/13/2025 13:00:06 03/13/20 25 03/13/2025 CMP (FEMA LE) A/G ratio 1.0 ratio Not Available [facility] [address] [facility] [address], [place], [address], 03/13/2025 13:00:06 03/13/2003/13/2025 CMP (FEMA LE) ALP phos 64.0 U/L 30.0-1 40.0 normal Not Available [facility] [address] [facility], [place], [address], 03/13/2025 13:00:06 03/13/2003/13/2025 CMP (FEMA LE) calcium 10.7 mg/dL 8.4-10 .5 high Not Available [facility] [address] [facility] [address], [place], [address], 03/13/2025 13:00:06 03/13/2003/13/2025 CMP (FEMA LE) sodium 141.0 mmol/ L 136.0- 145.0 Not Available [facility] [address] [facility] [address], [place], [address], 03/13/2025 13:00:06 03/13/2003/13/2025 CMP (FEMA LE) potassium 4.4 mmol/ L 3.5-5. 1 Not Available [facility] [address] [facility] [address], [place], [address], 03/13/2025 13:00:06 03/13/2003/13/2025 CMP (FEMA LE) chloride 101.0 mmol/ L 98.0-1 10.0 normal Not Available [facility] [address] [facility] [address], [place], [address], 03/13/2025 13:00:06 03/13/2003/13/2025 CMP (FEMA LE) C02 27.0 mmol/ L 22.0-3 1.0 Not Available [facility] Lab [address] [facility] [address], [place], [address], 03/13/2025 13:00:06 03/13/2003/13/2025 CMP (FEMA LE) anion gap 13.0 calc Not Available Miles woodk [facility] [address] [facility] [address], [place], [address], 03/13/2025 13:00:06 03/13/2003/13/2025 CMP (FEMA LE) osmolality 298.9 calc Not Available [facility] [address] [place], [address], 03/13/2025 13:00:06 03/13/2003/13/2025 URINA LYSIS WITH MICRO color DARK YELLOW Not Available Aquino Nisha k [facility] [address] [facility] [address], [place], [address], 03/13/2025 13:43:58 03/13/2003/13/2025 URINA LYSIS WITH MICRO clarity CLOUDY Not Available [facility] [address] [facility] [address], [place], [address], 03/13/2025 13:43:58 03/13/2003/13/2025 URINA LYSIS WITH MICRO glu NEGATI VE Not Available Aquino Nisha k [facility] [address] [facility], [place], [address], 03/13/2025 13:43:58 03/13/2003/13/2025 URINA LYSIS WITH MICRO bili NEGATI VE Not Available Aquino Nisha k [facility] [address] [facility] 1, [place], [address], 03/13/2025 13:43:58 03/13/2003/13/2025 URINA LYSIS WITH MICRO ket TRACE Not Available Aquino Cre [facility] [address] [facility] 1, [place], [address], 03/13/2025 13:43:58 03/13/2003/13/2025 URINA LYSIS WITH MICRO S.g 1.030 1.005- 1.025 high Not Available [facility] [address] [facility], [place], [address], 03/13/2025 13:43:58 03/13/20 25 03/13/2025 URINA LYSIS WITH MICRO pH 5.5 5.0-7. 0 Not Available [facility] [address] [facility] 1, [place], [address], 03/13/2025 13:43:58 03/13/2003/13/2025 URINA LYSIS WITH MICRO pro 1+ Not Available [facility] Cre [facility] [address] [facility] [address], [place], [address], 03/13/2025 13:43:58 03/13/2003/13/2025 URINA LYSIS WITH MICRO uro 0.2 E.U./D L Not Available Aquino Nisha k Lab [address], [place], [address], 03/13/2025 13:43:58 03/13/2003/13/2025 URINA LYSIS WITH MICRO nit NEGATI VE Not Available Aquino Nisha k Lab [address], [place], [address], 03/13/2025 13:43:58 03/13/2003/13/2025 URINA LYSIS WITH MICRO blo 3+ Not Available Aquino Cre ek [facility] [address], [place], [address], 03/13/2025 13:43:58 03/13/2003/13/2025 URINA LYSIS WITH MICRO noe TRACE Not Available Aquino Cre [facility] [address], [place], [address], 03/13/2025 13:43:58 03/13/2003/13/2025 URINA LYSIS WITH MICRO WBC 8-10 Not Available Aquino Cre ek [facility] [address], [place], [address], 03/13/2025 13:43:58 03/13/2003/13/2025 URINA LYSIS WITH MICRO RBC 30-40 Not Available Aquino Cre ek [facility] [address], [place], [address], 03/13/2025 13:43:58 03/13/20 25 03/13/2025 URINA LYSIS WITH MICRO epi cells 10-12 Not Available Miles argueta [facility] [address] 1, [place], [address], 03/13/2025 13:43:58 03/13/20 25 03/13/2025 URINA LYSIS WITH MICRO bacteria 1+ MIXED FRANCISCO JAVIER Not Available Miles everett [facility] [address] 1, [place], [address], 03/13/2025 13:43:58 03/13/20 25 03/13/2025 URINA LYSIS WITH MICRO other NEGATI VE Not Available Aquino Nisha k Lab [address] [facility] 1, [place], [address], 03/13/2025 13:43:58 03/13/20 25 03/14/2025 CULTU RE, URINE , ROUTI NE culture, urine, routine SEE NOTE CULTU RE, URINE , ROUTI NE Micro Numbe r: [id number] Test Statu s: Final Speci men [...] Cultu re Trans port Tube. Not Available [facility] [address], [place], [address], 03/14/2025 21:15:28 Result Notes None recorded. Problems Name Problem SNOMED Code Status Onset Date Resolution Date Notes Provider Name and Address Organization Details Recorded Time Benign essential hypertensio n 0269121 Active IAN Hernández - [facility]CNadine 12:42:58 Blood pressure above reference range 37559372 Active JEFFY LEY [facility], [facility] 5 14:52:36 Hypertrigly ceridemia 732215488 [facility] 5 14:52:36 Mycosis 8385826 Active [facility] 14:52:36 Dyslipidemi a 519736549 Active JEFFY LEY [facility] 5 14:52:36 Biliary colic 78101718 Active PHILIP JEFFY [facility] 4 12:43:08 Hypertensiv e disorder 79374230 Active AMISHAMara GUERRA, [address], [address], [facility] 5 10:48:[id number] [facility] AMISHAMara GUERRA, [address], [address], [facility] 5 10:48:16 Herpes zoster 0290602 [facility] 5 14:52:36 Bradycardia 41484519 Active PHILIP JEFFY [facility] 4 12:43:11 Atrial fibrillatio n 81537836 Active AMISHA GUERRA, [address], [address], [facility] 5 10:48:16 Coronary arterioscle rosis 11333102 Active PHILIP JEFFY [facility] 4 12:43:19 Dyspnea on exertion 84542644 Active JEFFY styles, [facility] 5 14:52:36 Essential tremor 138864488 Active AMISHA GUERRA, [address], [address] [place] [address] 5, [facility] 5 10:48:16 Palpitation s 29964921 Active JEFFY JIL styles, [facility] 5 14:52:36 Gout 78207097 Active JE[facility]Y [facility] 5 14:52:36 Benign hypertensio n 73985460 Active PHILIP [facility]ARDALES [facility] 4 12:43:02 Asthenia 39985168 Active AMISHA GUERRA, [address], [address] [place] [address] 5, [facility] 5 10:48:16 Metabolic encephalopa thy 78881500 Active JEFFY LEY [facility] 5 14:52:36 Urinary tract infectious disease 81896743 Active AMISHA GUERRA, [address], [address] [place] [address] 5, [facility] 5 10:48:16 Lactic acidosis 27408762 Active [facility] 5 14:52:36 Chest pain 79299552 Selina GUERRA, [address], [address] [place] [address] 5, [facility] 5 10:48:16 Benign paroxysmal positional vertigo 491684229 Active AMISHA GUERRA, [address], [address] [place] [address] 5, [facility] 5 10:48:16 Labyrinthit is 53398512 Active JEFFY [facility] 5 14:52:36 Disturbance of consciousne ss 5476220 Active [facility] 5 14:52:36 Vertigo 149795871 Active JEFFY [facility] 5 14:52:36 Altered mental status 235584631 [facility] 5 14:50:27 Hypertensiv e urgency 594941534 Active [facility] 5 14:52:36 Amnesia 36618400 [facility] 5 14:52:36 Objective vertigo 64499709 [facility] 5 14:52:36 Reactive airway disease 867012267906 [facility] 5 14:52:36 Near syncope 642272533 Active AMISHA GUERRA, [address], [address], [facility] 5 10:48:16 Sepsis 87547296 Active AMISHA GUERRA, [address], [address], [facility] 5 10:44:32 Sprain of left ankle 1058465611915 9105 Active AMISHA GUERRA, [address], [address], [facility] 10:46:10 Headache 72613306 Selina GUERRA, [address], [address] [place] [address] 5, [facility] 5 10:48:16 Acute urinary tract infection 347013234 Selina GUERRA, [address], [address] [place] [address] 5, [facility] 10:46:10 Acute labyrinthit is 5476300327772 03 Active AMISHA GUERRA, [address], [address], [facility] 10:46:10 Adjustment disorder with anxious mood 14704248 Selina GUERRA, [address], [address] [place] [address], [facility] 10:46:10 Anxiety 23470214 Selina GUERRA, [address], [address] [place] [address], [facility] 10:46:10 Acute cystitis 28529907 Selina GUERRA, [address], [address] [place] [address], [facility] 10:46:10 Acute kidney injury 34213691 Selina GUERRA, [address], [address] [place] [address], [facility] 10:41:33 Hypomagnese elvira 585201602 Selina GUERRA, [place] [address], [place] [facility] 5 10:41:33 Syncope 424872436 Active AMISHA GUERRA, [address], [address] [place] [address] 5, [facility] 5 10:41:33 Syncope and collapse 248029532 Active AMISHA GUERRA, [address], [address] [place] [address] 5, [facility] 5 10:41:33 Dizziness of unknown cause 871123037 Active AMISHA GUERRA, [address], [address] [place] [address] 5, [facility] 5 10:41:33 Lactic acid level above reference range 7378166 Active AMISHA GUERRA, [address], [address] [place] [address] 5, [facility] 5 10:41:33 History of cholecystec nader 112404431 Active 2019 JEFFY styles, [facility] 5 14:52:36 Essential hypertensio n 00172273 Active 2023 PHILIP styles [facility] 4 17:51:41 Cardiomegal y 9742987 Active 2023 mild PHILIP styles [facility] 4 17:56:13 Atrial fibrillatio n with rapid ventricular response 0254388947365 09 Active 2023 AMISHA GUERRA, [address], [address], [facility] 5 10:48:16 Type 2 diabetes mellitus 81231010 Active 2024 AMISHA GUERRA, [facility] [address] [place], [address], [facility], Alec 19:26:52 Parkinson's disease 08946497 Active 2024 AMISHA GUERRA, [address], [address], [facility], Alec 19:28:20 Congestive heart failure 73409099 Active 2024 AMISHA GUERRA, [address], [address], [facility], Alec 19:29:24 Chronic kidney disease stage 3 358924532 Active 2024 AMISHA GUERRA, [address], [address], [facility], Alec 19:32:28 Problem Notes None recorded. Procedures Surgical History Date Name Laterality Status Provider Name and Address Organization Details Recorded Time 01/24/20 25 plain X-ray of chest completed [facility], Alec 01/24/2025 15:14:07 01/24/[address] [facility]24[facility]2025 15:14:57 08/15/19 25 [facility]/19[facility]2024 09:37:52 04/21/[address] [facility] 04/24[facility]24 14:38:54 01/09/20 24 [facility] 01/09/2024 18:48:47 01/09/[address] of head completed [facility] 01/09/2024 18:49:46 01/09/20 24 procedure on neck completed [facility] 01/09/2024 18:52:29 11/18/19 24 plain X-ray of chest completed [facility] 11/22/2023 19:57:57 11/02/19 24 plain X-ray of chest completed [facility] 11/02/2023 17:49:11 11/02/[address] of head completed [facility] 11/02/2023 17:50:27 07/29/19 24 plain X-ray of chest completed [facility] 08/01/2023 17:22:55 07/29/[address] of head completed [facility] 08/22/2023 17:24:25 07/28/19 24 plain X-ray of chest completed [facility] 08/22/2023 17:22:37 04/21/20 23 plain X-ray of chest completed [facility] 05/17/2023 12:28:28 03/27/20 23 duplex ultrasonography of carotid artery completed [facility] 03/28/2023 16:10:21 03/27/20 23 Doppler ultrasonography of venous structure of limb completed [facility] 03/28/2023 16:11:[address] [facility] 08/12/2024 14:48:54 Imaging Results None recorded. Procedure Notes None recorded. Medical Equipment None Reported. Allergies Allergen ID Allergen Name Allergen Category Reaction Reaction Severity Criticality Documentation Date Start Date Code Code System Note Provider Name and Address Organization Details Recorded Time 58349 lisinopri l medicatio n Not available Not available Not available 11/29/20232024 02866 RxNorm AMISHA GUERRA, [facility] [address] [place], [address], [facility] - [facility] 5 10:48:03 Medications Name Sig Start [...] oral route for 5 days, for UTI. 03/25 completed Not Available Not Available Not Available atorvasta tin 20 mg tablet TAKE 1 [...] Not Available Not Available No t Available donepezil 10 mg tablet TAKE 1 TABLET [...] completed Not Available Not Available Not Available cephalexi n 500 mg capsule take 1 capsule BY MOUTH THREE TIMES DAILY for 7 days active Not Available Not Available No t Available triamcino lone acetonide 0.1 % topical [...] Not Available allopurin ol 300 mg tablet TAKE 1 TABLET BY MOUTH EVERY DAY active Not Available Not Available No t Available mupirocin 2 % topical ointment apply TO open areas TWICE DAILY NEEDED UNTIL HEALED active Not Available Not Available No t Available furosemid e 20 mg tablet TAKE 1 TABLET BY MOUTH EVERY DAY 2023 active Not Available Not Available Not Avai lable irbesarta n 150 mg tablet TAKE 1 TABLET BY MOUTH EVERY DAY 06/05 completed Not Available Not Available Not Available levofloxa sammy 500 mg tablet TAKE 1 TABLET BY MOUTH EVERY DAY for 7 days active Not Available Not Available No t Available estradiol 0.01% (0.1 mg/gram) vaginal cream [...] completed Not Available Not Available Not Available loratadin e 10 mg tablet TAKE 1 TABLET BY MOUTH EVERY DAY active Not Available Not Available No t Available amoxicill in 875 mg-potass ium clavulana [...] t Available atorvasta tin daily 12/19 completed 56718; Recorded 04/14/20 22 12:02PM by Philip Bardales CMT (Authori viky [...] mass index (BMI) Body weight Oxygen saturation Heart rate Respiratory rate Body temperature Systolic And Diastolic Provider Name and Address Organization Details Last Updated DateTime 5 157.48 cm 41.2 kg/m2 508852. 28 g 94 % 90 /min 18 /min 98.2 [degF] 166/90 mm[Hg] Jenny Franks [facility] 14:02:43 Date Recorded Body height Body mass index (BMI) Body weight Oxygen saturation Heart rate Respiratory rate Systolic And Diastolic Provider Name and Address Organization Details Last Updated DateTime 157.48 cm 41.2 kg/m2 831458. 28 g 94 % 80 /min 22 /min 146/72 mm[Hg] PHILIP BARDALES [facility]ine 5 10:10:41 Date Recorded Body height Body mass index (BMI) Body weight Oxygen saturation Heart rate Respiratory rate Systolic And Diastolic Provider Name and Address Organization Details Last Updated DateTime 5 157.48 cm 41.2 kg/m2 044161. 28 g 95 % 82 /min 22 /min 138/68 mm[Hg] PHILIP BARDALES [facility] 10:22:27 Social History Question Answer Notes LastModified by Radario Details LastModified Time Tobacco Smoking Status Never Smoker PHILIP BARDALES [facility] 01/04/2023 12:21:22 What Was The Date Of Your Most Recent Tobacco Screening? 10/29/2024 [email or web address] Information not available 10/29/2024 Sex: Unknown Functional Status Question Answer Note LastModified by Radario Details LastModified Time Do you use any illicit or recreational drugs? No [email or web address] Information not available 01/04/2023 What is your level of alcohol consumption? None [email or web address] Information not available 01/04/2023 Mental Status None recorded. Family History Relationship Description Onset Age of this Age Resolved Age Notes LastModified by Organization Details LastModified Time Mother Cerebrovascu lar accident [email or web address] Not available 17:54:19 Mother Type 2 diabetes mellitus [email or web address] Not available 11/01 17:54:50 Father Myocardial infarction age 62 [email or web address] Not available 11/02/2023 17:55:36 Father Malignant neoplasm of colon [email or web address] Not available 09/04 12:10:24 Medical History Condition Response Heart Problems Y High Cholesterol Y Hypertension Y Gynecological HistoryNo gynecological history recorded. Obstetrics History GPAL:G 0 P 0 0 0 0 Immunizations Vaccine Type Date Status Note Provider Nam e and Address Organization Details Recorded Time Influenza, adjuvanted, trivalent, PF 5 [facility] 03/13/2025 11:28:30 Influenza, split virus, quadrivalent, PF 4 completed AMISHA GUERRA, [address], [address] [place] [address], [facility] 04/19/2024 12:39:02 COVID-19, mRNA, LNP-S, PF, 50 mcg/0.5 mL 3 completed AMISHA GUERRA, [place] [address], [facility] 06/05/2024 15:08:09 COVID-19, mRNA, LNP-S, PF, 100 mcg/0.5mL dose or 50 mcg/0.25mL dose 1 completed AMISHA GUERRA, [address], [address] [place] [address], [facility] 03/13/2025 10:46:13 COVID-19, mRNA, LNP-S, PF, 100 mcg/0.5mL dose or 50 mcg/0.25mL dose 1 completed AMISHA GUERRA, [place] [address], [facility] 03/13/2025 10:46:14 COVID-19, mRNA, LNP-S, PF, 100 mcg/0.5mL dose or 50 mcg/0.25mL dose 1 completed AMISHA [address]ER[address] [address], [facility] 03/13/2025 10:46:14 COVID-19, mRNA, LNP-S, bivalent, PF, 50 mcg/0.5 mL or 25mcg/0.25 mL dose 2 completed AMISHA GUERRA, [address], [address], [facility] 10/04/2022 07:54:30 Tdap 1 completed AMISHA GUERRA, [address], [address], [facility] 10/04/2022 07:54:30 Pneumococcal conjugate PCV 13 7 completed AMISHA GUERRA, [address], [address], [facility] 03/13/2025 10:46:14 Influenza, high-dose, trivalent, PF 9 completed AMISHA GUERRA, [address], [address], [facility] 10/04/2022 07:54:30 Influenza, split virus, trivalent, preservative 0 completed AMISHA GUERRA, [address], [address], [facility] 10/04/2022 07:54:30 Influenza, split virus, trivalent, preservative 2 completed AMISHA GUERRA, [address], [address], [facility] 10/04/2022 07:54:30 Influenza, split virus, trivalent, preservative 4 completed AMISHA GUERRA, [address], [address], [facility] 10/04/2022 07:54:30 Influenza, split virus, trivalent, PF 5 completed AMISHA GUERRA, [address], [address], [facility] 10/04/2022 07:54:30 Hep B, adult 4 completed AMISHA GUERRA, [address], [address], [facility] 10/04/2022 07:54:30 Hep B, adult 3 completed AMISHA GUERRA, [address], [address], [facility] 10/04/2022 07:54:30 Hep B, adult 3 vandana GUERRA, [address], [address], [facility] 10/04/2022 07:54:30 Hep A, adult 4 vandana GUERRA, [address], [address], [facility] 10/04/2022 07:54:30 Hep A, adult 1 vandana GUERRA, [address], [address], [facility] 03/13/2025 10:46:14 Influenza, split virus, quadrivalent, PF 1 vandana GUERRA, [address], [address], [facility] 03/13/2025 10:46:14 Past Encounters Encounter ID Performer Location Encounter Start Date Encounter Closed Date Diagnosis/Indication Diagnosis SNOMED-CT Code Diagnosis ICD10 Code Diagnosis IMO Codes Diagnosis Note [id number] CEDRIC GARCIA [facility] ([facility]) [address] [place] [id number] 09/27/2022 15:55:15 09/27/2022 20:01:04 Adult health examination 479446051 Z00.00 Screening for malignant neoplasm of colon 902238096 Z12.11 Morbid obesity 660442367 E66.01 Discussed diet and exercise. Blood coag ulation disorder 97698408 D68.318 Xarelto for A-fib. Chronic at rial fibrillation 064133978 I48.20 [id number] Curry Simmons MD [facility] ([facility]) [address] [place] [id number] 12/19/2022 10:19:42 12/19/2022 19:51:58 Allergic rhinitis 96397990 J30.9 Exam is more consistent with allergies. We will add loratadine . The patient was instructed to increase her Flonase to 2 sprays each nostril daily. [id number] CEDRIC GARCIA [facility] ([facility]) [address] [place] [id number] 01/04/2023 10:14:46 02/22/2023 12:05:53 Atrial fibrillation 13563494 I48.91 Hyperglycemia 62689882 R 73.9 Asthma 811266957 J45.90 9 [id number] Curry Simmons MD [facility] ([facility]) [address] [place] [id number] 01/24/2023 10:39:16 01/24/2023 11:19:40 Bronchitis 20570248 J40 Today's exam concerned about bronchitis and likely will need an antibiotic and steroid to help manage her symptoms and disease. Allergic rhinitis 528266 04 J30.9 Patient likely still has some underlying allergies but the loratadine does not seem to be effective so we will transition to Teresa. [id number] CEDRIC GARCIA [facility] ([facility]) [address] [place] [id number] 03/14/2023 15:31:54 03/14/2023 17:41:50 Atrial fibrillation 25812285 I48.91 She has an appt with Dr. Matamoros on 03/27. Essential hypertension 21771743 I10 Swelling of lower leg 44 2331651 R22.42 Intermitte nt confusion 839346638 R41.0 Adult heal th examination 665700041 Z00.00 Patient says she notices she doesn't have any outside activities . Chronic ki dney disease 487981335 N18.30 Most recent GFR 64. Angina pectoris 12058623 0 I20.9 2 recent ER visits for this, follow-up scheduled with Dr. Matamoros in 2 weeks. Chronic co ngestive heart failure 21057050 I50.9 Lower extremity swelling today. Left worse than right. [id number] AMISHA GUERRA [employer] [facility] ([facility]) [address] [place] [id number] 03/27/2023 11:02:08 03/27/2023 15:42:31 [id number] AMISHA GUERRA [employer] [facility] ([facility]) [address] [place] [id number] 06/15/2023 13:28:36 06/16/2023 09:58:10 Memory impairment 490425036 R41.3 Essential tremor 7808537 09 G25.0 Long-term drug therapy 500748213 Z79.800 [id number] RANDY ELIAS PA-C [facility] ([facility]) [address] [place] [id number] 10/06/2023 09:46:56 10/06/2023 11:30:10 Seborrheic dermatitis 88508942 L21.9 Parkinson's disease 4904 9000 G20.A1 Acute otitis externa 302 40180 H60.509 Acute sinusitis 56941997 J01.90 [id number] CEDRIC GARCIA [facility] ([facility]) [address] [place] [id number] 10/17/2023 14:44:58 10/17/2023 17:46:25 Parkinson's disease 43135907 G20.A1 She has been seeing a neurologis t in [place] but are planning on transferri her records up here for further care. Pain of ear 132986462 H9 2.09 Atrial fibrillation 4943 [address]48[address] Matamoros. Seborrheic dermatitis 50 494242 L21.9 Shampoos and creams have not been helpful. Hyperglycemia 10817320 R 73.9 Morbid obesity 954247694 E66.01 Discussed diet and exercise. Congestive heart failure 26959813 I50.[address] Matamoros cardiology . Chronic ki dney disease stage 3B 170847262 N18.32 Monitor CMP today. Blood coag ulation disorder 07556268 D68.318 Xarelto for A-fib. Hyperlipidemia 71858245 E78.5 Continue atorvastat in. Essential hypertension 81493207 I10 Continue irbesartan . [id number] CEDRIC GARCIA [facility] ([facility]) [address] [place] [id number] 11/29/2023 13:20:23 11/29/2023 14:50:35 Acute upper respiratory infection 01466854 J06.9 Atrial fib rillation with rapid ventricular response [id number] 89341 I48.91 Improving. Follow-up with cardiology next week. [id number] CEDRIC GARCIA [facility] ([facility]) [address] [place] [address] 83388-411 5 01/16/2024 14:33:50 01/16/2024 16:40:54 Essential tremor 866872159 G25.0 Upcoming appt with neurology. Essential hypertension 35501455 I10 Continue irbesartan . Generalize d anxiety disorder 09671609 F41.1 Hospital i npatient stay within past 30 days [id number] 106 Z76.89 [id number] CEDRIC GARCIA [facility] ([facility]) [address] [place] [address] 89764-121 5 02/08/2024 14:25:27 02/09/2024 10:29:12 Acute urinary tract infection 121178267 N39.0 [id number] CEDRIC GARCIA [facility] ([facility]) [address] [place] [address] 00826-916 5 02/29/2024 11:45:42 02/29/2024 12:57:05 Benign hypertension 83133968 I10 Continue current medication . Recurrent urinary tract infection N39.0 Type 2 francisca betes mellitus without complication 928981996 E11.9 Memory impairment 456831 006 R41.3 Repeats herself frequently . [id number] CEDRIC GARCIA [facility] ([facility]) [address] [place] [address] 67647-935 5 03/18/2024 11:08:55 03/18/2024 11:51:04 Dizziness and giddiness 034090462 R42 Appt set up with PT to help with vertigo. Essential tremor 4883830 09 G25.0 Neurology is weaning her off of Carbidopa/ Levodopa. Vitamin D deficiency 347 95926 E55.9 Started vitamin to help with energy. Memory impairment 005230 006 R41.3 Repeats herself frequently . Recurrent urinary tract infection N39.0 Pain of le ft shoulder blade 632004291 M25.512 Significan t bruising to left shoulder following a fall a couple of days ago. Mild tenderness . Declines further work-up. [id number] CEDRIC GARCIA [facility] ([facility]) [address] [place] [address] 34677-802 5 04/19/2024 11:49:18 04/22/2024 10:44:32 Dementia 63031253 F03.93 Tremor 13283173 R25.1 Worsened since stopping Propanolol . Benign hypertension 1072 5009 I10 Continue current medication . Generalize d anxiety disorder 26903605 F41.1 Recurrent urinary tract infection N39.0 [id number] CEDRIC GARCIA [facility] ([facility]) [address] [place] [address] 31073-717 5 06/05/2024 13:42:43 06/05/2024 15:23:16 Essential hypertension 72811632 I10 Increasing losartan to twice a day this week. Dizziness 641478555 R42 Recent ER visit, meclizine given during the ER visit. Unsteady when walking 22 004901 R26.89 Recurrent falls 82648087 2 R29.6 Type 2 francisca betes mellitus 68230891 E11.22 A1C creeping up. Will work to get under control with diet and consider adding medication s. Parkinson's disease 4904 9000 G20.A1 Previously followed with neurologis t in [place], now seeing Dr. Kelsey. Congestive heart failure 85100133 I50.9 Follows with cardiology , appt coming up. Atrial fibrillation 4943 6004 I48.91 Follows with cardiology . Dr. Oliveira in [facility]. Home. Chronic ki dney disease stage 3 010501298 N18.32 Continued monitoring . Hyperlipidemia 95273049 E78.5 Continue atorvastat in. Dementia 95154431 F02.80 Follows with neurology, worsening. Morbid obesity 091401320 E66.01 Discussed diet and exercise. [id number] AMISHA GUERRA [facility] ([facility]) [address] [place], [place] [address] 5 06/25/2024 10:54:36 06/27/2024 09:46:56 [id number] IRENE DUDLEY [facility] ([facility]) [address] [place], [place] [address] 5 07/09/2024 10:15:58 07/09/2024 12:10:10 Dysuria 05354059 R30.0 Discussed to take antibiotic as prescribed [...] concernsPa tient verbalized understand ing of plan. [id number] AMISHA GUERRA [facility] ([facility]) [address] [place], [place] [address] 5 08/12/2024 14:20:52 08/12/2024 15:19:56 Cough 67669951 R05.9 Antibiotic s prescribed today to cover for bronchitis . Acute otitis externa 302 98701 H60.113 [id number] AMISHA GUERRA [facility] ([facility]) [address] [place] [address] 67751-214 5 09/04/2024 11:08:03 09/04/2024 12:44:13 Benign hypertension 63336040 I10 Continue current medication . Benign ess ential hypertension 5726556 I10 Losartan up to twice a day. Essential tremor 3285603 09 G25.0 Neurology appt coming up in September. Uncomplica megan moderate persistent asthma 924397426 J45.40 [id number] [id number] JOSIE MEREDITH [facility] ([facility]) [address] [place] [address] 21240-268 5 09/07/2024 10:56:35 09/07/2024 12:02:24 [id number] AMISHA GUERRA [facility] ([facility]) [address] [place] [address] 89212-180 5 10/07/2024 14:46:34 10/08/2024 10:08:21 Chronic kidney disease stage 3B 823906907 N18.32 [id number] Monitor CMP today. [id number] IRENE DUDLEY [facility] ([facility]) [address] [place] [address] 17228-383 5 10/29/2024 13:51:59 10/29/2024 15:50:00 Dysuria 55073145 R30.0 92968 Discussed to take antibiotic as prescribed until [...] verbalized understand ing of plan. Essential hypertension 14806936 I10 30672 Advised to monitor BP bid. Notify PCP with readings. Advised patient to present to ER with any worsening of ear ringing/he adache/con fusion. [id number] AMISHA GUERRA [facility] ([facility]) [address] [place] [address] 94930-645 5 12/10/2024 09:51:51 12/10/2024 11:23:15 Benign hypertension 14741256 I10 Continue current medication . Type 2 francisca betes mellitus 16066861 E11.22 A1C creeping up. Will work to get under control with diet and consider adding medication s. Parkinson's disease 4904 9000 G20.A1 Previously followed with neurologis t in [place], now seeing Dr. Kelsey. [id number] CEDRIC GARCIA [facility] ([facility]) [address] [place] [address] 03/13/2025 09:43:59 03/13/2025 11:30:48 Benign hypertension 69120970 I10 Continue current medication . Type 2 francisca betes mellitus 60916119 E11.22 A1C creeping up. Will check A1C today. 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 0045633582 41287 M1A.00X0 347508661 Administra tion of influenza vaccine 63157247 Z23 Nasal congestion 5139286 0 R09.81 58741 Recurrent urinary tract infection 300113209 N39.0 187816 General ex amination of patient 086224209 Z00.00 [id number] Health Concerns Section Related Observation LastModified by Organization Detai ls LastModified Time None Recorded Concern Status LastModified by Organization Details LastModified Time None Recorded Advance Directives Directive None Recorded Payers Insurance Date Sequence Insurance Name Policy Number Policy May Covered Member ID May Member ID Guarantor Name 03/13/2025 1 [facility] (MEDICARE REPLACEMENT/A DVANTAGE - PPO) [id number] Kadi Hernandez [id number] Kadi Hernandez Notes Date Note Type Note [...] BP reading noted on exam. CEDRIC LOPEZ [address] [place] [address], [phone], [facility] 10/29/2024 15:36:36 12/10/2024 text/html Hypertension IM/FMReported by PatientHPIFor severity, patient reportsstage 2 (>140/>90 mmhg). For quality, patient reportshere for check-up. For duration, patient reportshtn present for ___ years. For alleviating factors, patient reportsmedication. For self care, patient reportsnon-smoker. For associated symptoms, patient reportsno shortness of breathandno chest pain. CEDRIC GARCIA [address] [place], [address], [facility] 12/10/2024 11:18:58 03/13/2025 text/html CoughReported by [...] of breathandno chest pain. CEDRIC GARCIA [address] [place], [address], [facility], LN[facility]ine[facility]. 03/13/2025 11:03:32 OBGyn Episode No OBEpisode recorded.
--- OUTSIDE RECORDS SUMMARY | 2025-03-31 01:01 | XMS_ITS | Patient Health Record ---
Author Organization [facility] Address [address] [place] [address] Care Team Providers Care Director Talent Management Name Role Phone Bonnie Fleming APRN Primary Care Provider Unavaila Clarissa Guerrier Unavailable [phone] Rafa oGmez Unavailable [phone] Aydee Gutierrez Unavailable Allergies Allergen (clinical drug ingredient) Drug/Non Drug Allergy documented on EMR Reaction Allergy Type Onset Date Status lisinopril Lisinopril Unknown Drug Allergy Activ e Results Component Value Reference Range Notes UA Without Micro-Auto, [place] - [id number] Reviewed date:12/04/2024 10:40:53 AM Interpretation: Performing Lab: Notes/Report: Glucose 0 Bili 0 Ketones 0 Sp [place] 1.030 Blood 0 pH 6.0 Protein +- Urobili 0 Nitrites 0 Leukocytes 1+ UA Without Micro-Auto, [place] - [id number] Reviewed date:01/01/2025 10:48:11 AM Interpretation: Performing Lab: Notes/Report: Glucose 0 Bili 1+ Ketones 0 Sp [place] 1.030 Blood 0 pH 5.5 Protein +- Urobili 0 Nitrites 0 Leukocytes +- Reason For Referral Reason frequent UTI Diagnosis 1 Frequent UTI (N39.0) Referral Organization [facility] Ne[facility]y [facility] Referring Provider First Name Clarissa Referring Provider Last Name Dayanna Referring Provider Speciality Nurse Prac titioner Referred Provider [facility] ology Referred Provider Specialty Urology General Notes Nguyen Olguin 10/23 04:09:42 PM >Davis at Dr. Gomez's office verified referral has been received. Patient has not been called to set up.Clau Crystal 11/12/2024 03:58:55 PM >Voice mail was left on 11/12/24 requesting patient return call to Dr. Gomez's office to set up appt, Nguyen Olguin LPN 11/20/2024 11:46:21 AM CDT > LVM at [phone] Gomez's office to be set up for freuquent UTI., Nguyen Olguin LPN 11/20/2024 11:46:53 AM CDT > No answer at [phone] and unable to leave a message.Clau Crystal, LPN 11/21/2024 03:22:44 PM CDT > Has appt 12/04/24 Referral Priority Routine Reason Frequent UTI's Diagnosis 1 Frequent UTI (N39.0) Referral Organization [facility] Referring Provider First Name Clarissa Referring Provider Last Name Dayanna Referring Provider Speciality Nurse Prac titioner Referred Organization [facility] Urol ogy Clinic Referred Provider Rafa Gomez Referred Address [address],[place], [place],[address], Referred Provider Specialty Urology General Notes Mai Guzmán 12/2024 11:33:28 AM >Lvm to schedule 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 manager appt Referral Priority Routine Medications Medication SIG [...] hrs Not-Takin g Vitamin D3 1.25 MG (70354 UT) Capsule 1 capsule Orally weekly 11/06/2024 Not-Taking Donepezil HCl 10 MG Tablet 1 tablet at b edtime Orally Once a day Active Losartan Potassium 50 MG Tablet 1 tablet Orally twice a day 11/06/2024 Active Cholecalciferol 1.25 MG (31831 UT) Capsule 1 capsule Orally Activ e [...] Status W/U Status Risk Notes Problem Hypercalcemia (05854363) Hypercalcemia (E83.52) Active confirmed Problem Essential hypertensi on (80251184) Essential hypertension (I10) Active confirmed Problem Chronic kidney disea se (886148065) Chronic kidney disease (N18.9) Active confirmed Problem Atrophic vaginitis (80912097) Atrophic vaginitis (N95.2) Active confirmed Problem History of hematuria (335547473) History of hematuria (Z87.448) Active confirmed Problem 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) Hyperparathyroi dism, 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 confirmed Problem Chronic kidney disea se stage 3B (disorder) (558051894) Chronic kidney disease, stage 3b (N18.32) Active confirmed Problem Gout (39098871) Controlled gout (M10.9) Active confirmed Vital Signs [...] N/A Encounters Encounter Location Date Provider Diagnosis [facility] Nephrology [address] [place] [address] 02/17/2025 Clarissa Alan Chronic kidney disease, stage 3b N18.32 ; Essential hypertension I10 ; Controlled gout M10.9 ; Hypercalcemia E83.52 ; Persistent proteinuria R80.1 and Hyperparathyroidism, 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 [facility] Nephrology [address] [place] [address] 06/17/2024 Clarissa Alan Chronic kidney disease, stage 3b N18.32 ; Essential hypertension I10 ; Controlled gout M10.9 ; Hypercalcemia E83.52 and Persistent proteinuria R80.1 [facility] Nephrology [address] [place] [address] 10/15/2024 Clarissa Alan Chronic kidney disease, stage 3b N18.32 ; Essential hypertension I10 ; Controlled gout M10.9 ; Hypercalcemia E83.52 ; Persistent proteinuria R80.1 and Hyperparathyroidism, 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 [facility] [address] [place] [address] [place] [address] 01/01/2025 Aydee Gutierrez Recurrent UTI N39.0 ; Atrophic vaginitis N95.2 and History of hematuria Z87.448 [facility] [address] [place] [address] Dr [address] [place] [address] 12/04/2024 yAdee Gutierrez Recurrent UTI N39.0 ; Chronic kidney disease N18.9 and Atrophic vaginitis N95.2 [facility] [address] [place] [address] Dr [address] [place] [address] 11/07/2024 Clarissa [facility] [address] [place] [address] [place] [address] 10/20/2024 Clarissa [facility] [address] [place] [address] [place] [address] 03/06/2025 Clarissa [facility] [address] [place] [address] [place] [address] 2025 Clarissa Alan Chronic kidney disease, stage 3b N18.32 ; Essential hypertension I10 ; Controlled gout M10.9 and Hyperparathyroidism, 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 [facility] Nephrology [address] [place] [address] 02/10/2025 Clarissa [facility] [address] [place] [address] Dr [address] [place] [address] 12/06/2024 Rafa Gomez [facility] [address] [place] [address] Dr [address] [place] [address] 12/04/2024 Aydee MayenAleman [facility] [address] [place] [address] Dr [address] [place] [address] 11/12/2024 Rafa Gomez Assessments Encounter Date Diagnosis (ICD Code) Assessment Notes Treatment Notes Treatment Clinical Notes Section Notes 10/15/2024 Chronic kidney disease, stage 3b (ICD-10 [...] agreeable to urology appointment for recurrent UTIs. 02/17/2025 Essential hypertension (ICD-10 - I10) High Blood Pressure: Care Instructions material was printed Chronic kidney disease stage IIIb is slightly above baseline. CKD likley d/t HTN, Age. Hypertension is controlled. Gout is controlled with allopurinol. PTH is at goal for CKD. Following with urology for freqent UTIs, currently with hematuria, proteinuria and few bacteria, but recently finished an antibiotic for UTI. 02/17/2025 Chronic kidney disease, stage 3b (ICD-10 - N18.32) Chronic kidney disease stage IIIb is slightly above baseline. CKD likley d/t HTN, Age. Hypertension is controlled. Gout is controlled with allopurinol. PTH is at goal for CKD. Following with urology for freqent UTIs, currently with hematuria, proteinuria and few bacteria, but recently finished an antibiotic for UTI. 01/01/2025 Atrophic vaginitis (ICD-10 - N95.2) 01/01/2025 Recurrent UTI (ICD-10 - N39.0) 12/04/2024 Chronic kidney disease (ICD-10 - N18.9) 12/04/2024 Recurrent UTI (ICD-10 - N39.0) 06/17/2024 Chronic kidney disease, stage 3b (ICD-10 - N18.32) Chronic Kidney Disease: Care Instructions material was printed Chronic kidney disease stage IIIb based on current labs. Previous labs fluctuate between stage II-IIIa CKD. CKD likley d/t HTN, Age. Hypertension is controlled in clinic on current regimen. Gout is being treated with allopurinol. Hematuria and proteinuria likely due to recurrent UTIs. 2025 Chronic kidney disease, stage 3b (ICD-10 - N18.32) 2025 Essential hypertension (ICD-10 - I10) 06/17/2024 Essential hypertension (ICD-10 - I10) Chronic kidney disease stage IIIb based on current labs. Previous labs fluctuate between stage II-IIIa CKD. CKD likley d/t HTN, Age. Hypertension is controlled in clinic on current regimen. Gout is being treated with allopurinol. Hematuria and proteinuria likely due to recurrent UTIs. 12/04/2024 Atrophic vaginitis (ICD-10 - N95.2) 01/01/2025 History of hematuria (ICD-10 - Z87.448) 02/17/2025 Controlled gout (ICD-10 - M10.9) Chronic kidney disease stage IIIb is slightly above baseline. CKD likley d/t HTN, Age. Hypertension is controlled. Gout is controlled with allopurinol. PTH is at goal for CKD. Following with urology for freqent UTIs, currently with hematuria, proteinuria and few bacteria, but recently finished an antibiotic for UTI. 10/15/2024 Essential hypertension (ICD-10 - I10) High [...] agreeable to urology appointment for recurrent UTIs. 10/15/2024 Controlled gout (ICD-10 - M10.9) Chronic kidney disease stage IIIb is stable. CKD likley d/t HTN, Age. Hypertension is controlled in clinic on current regimen. Gout is being treated with allopurinol. No hematuria or proteinuria on current UA and previous was likely due to UTI. PTH and vitamin D are at goal for CKD. Patient agreeable to urology appointment for recurrent UTIs. 02/17/2025 Hypercalcemia (ICD-10 - E83.52) Chronic kidney disease stage IIIb is slightly above baseline. CKD likley d/t HTN, Age. Hypertension is controlled. Gout is controlled with allopurinol. PTH is at goal for CKD. Following with urology for freqent UTIs, currently with hematuria, proteinuria and few bacteria, but recently finished an antibiotic for UTI. 06/17/2024 Controlled gout (ICD-10 - M10.9) Chronic kidney disease stage IIIb based on current labs. Previous labs fluctuate between stage II-IIIa CKD. CKD likley d/t HTN, Age. Hypertension is controlled in clinic on current regimen. Gout is being treated with allopurinol. Hematuria and proteinuria likely due to recurrent UTIs. 2025 Controlled gout (ICD-10 - M10.9) 10/15/2024 Hypercalcemia (ICD-10 - E83.52) Chronic kidney [...] ism, secondary renal (ICD-10 - N25.81) 02/17/2025 Persistent proteinuria (ICD-10 - R80.1) Chronic kidney disease stage IIIb is slightly above baseline. CKD likley d/t HTN, Age. Hypertension is controlled. Gout is controlled with allopurinol. PTH is at goal for CKD. Following with urology for freqent UTIs, currently with hematuria, proteinuria and few bacteria, but recently finished an antibiotic for UTI. 06/17/2024 Hypercalcemia (ICD-10 - E83.52) Chronic kidney disease stage IIIb based on current labs. Previous labs fluctuate between stage II-IIIa CKD. CKD likley d/t HTN, Age. Hypertension is controlled in clinic on current regimen. Gout is being treated with allopurinol. Hematuria and proteinuria likely due to recurrent UTIs. 06/17/2024 Persistent proteinuria (ICD-10 - R80.1) Chronic kidney disease stage IIIb based on current labs. Previous labs fluctuate between stage II-IIIa CKD. CKD likley d/t HTN, Age. Hypertension is controlled in clinic on current regimen. Gout is being treated with allopurinol. Hematuria and proteinuria likely due to recurrent UTIs. 02/17/2025 Hyperparathyroid ism, secondary renal (ICD-10 - [...] agreeable to urology appointment for recurrent UTIs. 10/15/2024 Hyperparathyroid ism, secondary renal [...] Follow-up in 4 months with labs at [facility] in [place] Chronic kidney disease stage IIIb based on [...] Follow-up in 4-5 months with labs at [facility] in [place] Chronic kidney disease stage IIIb is stable. [...] Follow-up in 4 months with labs at [facility] in [place] Chronic kidney disease stage IIIb is slightly above baseline. CKD likley d/t HTN, Age. Hypertension is controlled. Gout is controlled with allopurinol. PTH is at goal for CKD. Following with urology for freqent UTIs, currently with hematuria, proteinuria and few bacteria, but recently finished an antibiotic for UTI. Plan Of Treatment Pending Test Test Name Order Date Albumin 45274 2025 Basic Metabolic Panel (BMP) 49876 2024 Hemoglobin 08385 2025 Magnesium (B) 93802 2025 Phosphorus (B) 72982 2025 Uric Acid (B) 06773 2025 Microalbumin (U) Random 35655 2025 Creatinine (U) 32755 2025 UA Reflex Micro, Reflex Cult 28449, 8101 5, 54804 2025 PTH Intact 69184 2025 Future Test Test Name Order Date Albumin 40117 10/12/2024 Basic Metabolic Panel (BMP) 82333 2024 Hemoglobin 89314 10/12/2024 Magnesium (B) 28471 10/12/2024 Phosphorus (B) 00561 10/12/2024 Protein (U) Random 65520 10/12/2024 Uric Acid (B) 01665 10/12/2024 Vitamin D Total (B) 16005 10/12/2024 Microalbumin (U) Random 36717 10/12/2024 Creatinine (U) 27520 10/12/2024 UA Reflex Micro, Reflex Cult 53358, 8101 5, 64415 10/12/2024 PTH Intact 58913 10/12/2024 Albumin 00876 06/06/2025 Basic Metabolic Panel (BMP) 90225 2025 Hemoglobin 73099 06/06/2025 Magnesium (B) 17305 06/06/2025 Phosphorus (B) 41502 06/06/2025 Protein (U) Random 90243 06/06/2025 Uric Acid (B) 08177 06/06/2025 Microalbumin (U) Random 00219 06/06/2025 Creatinine (U) 56268 06/06/2025 UA Reflex Micro, Reflex Cult 47811, 8101 5, 22975 06/06/2025 PTH Intact 16393 06/06/2025 Next Appt Details Provider Name:Humberto George, 06/18/2025 01:40:00 PM, [address] [place] [address] , [address], [place], [address], Provider Name:Aydee Ortiz, 07/03/2025 11:00:00 AM, [address] [place] [address] , [address], [place], [address], Insurance Providers Payer Name Payer Address Payer Phone Subscriber Number Group Number Insured Name Patient Relationship to Insured Coverage Start Date Coverage End Date [facility] Medicare Advantage PPO [address] [address] [place] [address] [id number] GRAEME MCKEON Self - patient is the insured Medical (General) History Medical History History ICD Code High blood pressure Skin Cancer Asthma A-Fib High cholesterol Gout Depression Anxiety Season allergies Surgical History Surgery Date(Month/Year) Hysterectomy Hospitalization History Reason Date(Month/Year) See surgical hx
--- OUTSIDE RECORDS SUMMARY | 2025-03-31 01:01 | XMS_ITS | Continuity of Care Document ---
Author Organization IAN Lopez [facility] Alec Spicer, [facility] ([facility]) Address [address] [place] [address] Care Team Providers Care Philosophy Professor Name Role Phone AMISHA UGERRA Primary Care Provider NATALIE Erazo Referring Provider [...] A1C/hemog lobin total, QN, blood 2024 025 [facility], [address], [address], [place], [address], 03/13/2025 12:46:27 CMP, serum or plasma 2024 025 [facility], [address], [address], [place], [address], 03/13/2025 13:00:06 CBC 2024 025 [facility], [address], [address], [place], [address], 03/13/2025 12:05:17 urinalysi s, complete 2024 025 [facility], [address], [address], [place], [address], 03/13/2025 13:43:59 culture, urine 2024 025 [facility] [employer] [facility], [address] [place] [address], [address] [place], [address], 03/14/2025 21:15:29 Referral None recorded. Procedures None recorded. Surgeries None recorded. Imaging None recorded. Medication Orders Claritin 10 mg tablet 2024 025 [facility] [place], [address] [place] [id number], [id number], 03/14/2025 13:48:37 allopurin ol 300 mg tablet 2024 025 [facility] [place], [address] [place] [id number], [id number], 03/14/2025 13:48:37 Patient TargetsNo targets recorded. Patient Instructions Encounter Date Encounter Id Patient Instructions Last Modified By Organization Details Last Modified Time 03/13/2025 [id number] preventing falls : care instructions Not available 03/13/2025 11:03:25 well visit, over 65: care instructions Not available 03/13/2025 11:03:25 Call or return for questions or concerns. Not available 03/13/2025 10:50:43 Reason for Referral None Reported. Results Created Date Observation Date Name Description Value Unit Range Abnormal Flag Note LastModifiedBy Organization Detail LastModifiedTime 03/13/2003/13/2025 CBC WBC 7.9 x10 4.0-10 .5 Not Available [facility] [address] [facility] [address] [address], [place], [address], 03/13/2025 12:05:17 03/13/2003/13/2025 CBC RBC 4.27 x10 3.50-5 .50 Not Available [facility] [address], [place], [address], 03/13/2025 12:05:17 03/13/2003/13/2025 CBC HGB 12.6 g/dL 12.0-1 6.0 Not Available [facility] [address], [place], [address], 03/13/2025 12:05:17 03/13/2003/13/2025 CBC HCT 39.3 % 37.0-4 7.0 Not Available [facility] [address] [facility] 1, [place], [address], 03/13/2025 12:05:17 03/13/2003/13/2025 CBC MCV 92.0 fL 80.0-9 9.9 Not Available [facility] [address] [facility] 1, [place], [address], 03/13/2025 12:05:17 03/13/20 25 03/13/2025 CBC MCH 29.5 pg 27.0-3 2.0 Not Available [facility] [address] [facility] 1, [place], [address], 03/13/2025 12:05:17 03/13/2003/13/2025 CBC MCHC 32.0 g/dL 32.0-3 6.0 Not Available [facility] [address] [facility] 1, [place], [address], 03/13/2025 12:05:17 03/13/2003/13/2025 CBC RDW 14.6 % 11.5-1 4.5 high Not Available [facility] [address] [facility] 1, [place], [address], 03/13/2025 12:05:17 03/13/2003/13/2025 CBC plt 255.9 x10 140.0- 451.0 Not Available [facility] [address] [place] [address] [address], [place], [address], 03/13/2025 12:05:17 03/13/2003/13/2025 CBC lymphocytes % 24.2 % 20.0-5 0.0 Not Available [facility] [address] [facility] 1, [place], [address], 03/13/2025 12:05:17 03/13/2003/13/2025 CBC granulcytes % 60.0 % 30.0-7 0.0 Not Available [facility] [address] [address], [place], [address], 03/13/2025 12:05:17 03/13/2003/13/2025 CBC monocytes % 10.3 % 2.0-16 .0 Not Available [facility] [address] [place] [address] [address], [place], [address], 03/13/2025 12:05:17 03/13/2003/13/2025 CBC granulcytes# 4.8 x10 Not Anabelle ilable [facility] [address] [place] [address] [address], [place], [address], 03/13/2025 12:05:17 03/13/2003/13/2025 CBC lymphocytes # 1.9 x10 Not Available [facility] [address] [place] [address] [facility], [place], [address], 03/13/2025 12:05:17 03/13/20 25 03/13/2025 CBC monocytes # 0.8 x10 Not Avai lable [facility] [address] [facility] 1, [place], [address], 03/13/2025 12:05:17 03/13/2003/13/2025 HBA1C hemaglobin A1C 6.3 4.2-6. 5 Not Available [facility] [address] [facility], [place], [address], 03/13/2025 12:46:27 03/13/2003/13/2025 CMP (FEMA LE) glucose 198.0 mg/dL 60.0-9 9.0 high Not Available [facility] [address] [facility], [place], [address], 03/13/2025 13:00:06 03/13/20 25 03/13/2025 CMP (FEMA LE) BUN (blood urea nitrogen) 21.0 mg/dL 10.0-2 6.0 Not Available [facility] [address] [facility], [place], [address], 03/13/2025 13:00:06 03/13/20 25 03/13/2025 CMP (FEMA LE) creatinine (serum) 1.5 mg/dL 0.4-1. 5 Not Available [facility] [address] [facility], [place], [address], 03/13/2025 13:00:06 03/13/2003/13/2025 CMP (FEMA LE) BUN/creatini ne ratio 14.00 ratio Not Available [facility] [address] [facility], [place], [address], 03/13/2025 13:00:06 03/13/20 25 03/13/2025 CMP (FEMA LE) eGFR calculated 35.5 Not Available [facility] [address] [facility], [place], [address], 03/13/2025 13:00:06 03/13/2003/13/2025 CMP (FEMA LE) total protein 8.5 g/dL 6.0-8. 5 Not Available [facility] [address] [facility], [place], [address], 03/13/2025 13:00:06 03/13/2003/13/2025 CMP (FEMA LE) total bilirubin 0.8 mg/dL 0.2-1. 3 Not Available [facility] [address] [place] [facility], [place], [address], 03/13/2025 13:00:06 03/13/2003/13/2025 CMP (FEMA LE) albumin 4.3 g/dL 3.5-5. 5 Not Available [facility] [address] [facility] 1, [place], [address], 03/13/2025 13:00:06 03/13/2003/13/2025 CMP (FEMA LE) globulin 4.2 calc Not Available [facility] [address] [facility] 1, [place], [address], 03/13/2025 13:00:06 03/13/2003/13/2025 CMP (FEMA LE) AST (SGOT) 86.0 U/L 0.0-46 .0 high Not Available [facility] [address] [facility] 1, [place], [address], 03/13/2025 13:00:06 03/13/2003/13/2025 CMP (FEMA LE) altv (SGPT) 63.0 U/L 13.0-6 9.0 normal Not Available [facility] [address] [facility], [place], [address], 03/13/2025 13:00:06 03/13/2003/13/2025 CMP (FEMA LE) A/G ratio 1.0 ratio Not Available [facility] [address] [facility] 1, [place], [address], 03/13/2025 13:00:06 03/13/2003/13/2025 CMP (FEMA LE) ALP phos 64.0 U/L 30.0-1 40.0 normal Not Available [facility] [address] [facility] 1, [place], [address], 03/13/2025 13:00:06 03/13/2003/13/2025 CMP (FEMA LE) calcium 10.7 mg/dL 8.4-10 .5 high Not Available [facility] [address] [facility] 1, [place], [address], 03/13/2025 13:00:06 03/13/2003/13/2025 CMP (FEMA LE) sodium 141.0 mmol/ L 136.0- 145.0 Not Available [facility] [address] [address], [place], [address], 03/13/2025 13:00:06 03/13/2003/13/2025 CMP (FEMA LE) potassium 4.4 mmol/ L 3.5-5. 1 Not Available [facility] [address] [facility] 1, [place], [address], 03/13/2025 13:00:06 03/13/2003/13/2025 CMP (FEMA LE) chloride 101.0 mmol/ L 98.0-1 10.0 normal Not Available [facility] [address] [facility], [place], [address], 03/13/2025 13:00:06 03/13/2003/13/2025 CMP (FEMA LE) C02 27.0 mmol/ L 22.0-3 1.0 Not Available [facility] [address] [facility] 1, [place], [address], 03/13/2025 13:00:06 03/13/20 25 03/13/2025 CMP (FEMA LE) anion gap 13.0 calc Not Available [facility] [address] [facility] [address] [facility] 1, [place], [address], 03/13/2025 13:00:06 03/13/2003/13/2025 CMP (FEMA LE) osmolality 298.9 calc Not Available [facility] [address] [facility] 1, [place], [address], 03/13/2025 13:00:06 03/13/20 25 03/13/2025 URINA LYSIS WITH MICRO color DARK YELLOW Not Available [facility] [address] [facility] 1, [place], [address], 03/13/2025 13:43:58 03/13/20 25 03/13/2025 URINA LYSIS WITH MICRO clarity CLOUDY Not Available [facility] [address] [facility] 1, [place], [address], 03/13/2025 13:43:58 03/13/20 25 03/13/2025 URINA LYSIS WITH MICRO glu NEGATI VE Not Available [facility] [address] [facility] 1, [place], [address], 03/13/2025 13:43:58 03/13/20 25 03/13/2025 URINA LYSIS WITH MICRO bili NEGATI VE Not Available [facility] [address] [facility] 1, [place], [address], 03/13/2025 13:43:58 03/13/20 25 03/13/2025 URINA LYSIS WITH MICRO ket TRACE Not Available [facility] [address] [facility] 1, [place], [address], 03/13/2025 13:43:58 03/13/2003/13/2025 URINA LYSIS WITH MICRO S.g 1.030 1.005- 1.025 high Not Available [facility] [address] [place] [address] [facility] 1, [place], [address], 03/13/2025 13:43:58 03/13/2003/13/2025 URINA LYSIS WITH MICRO pH 5.5 5.0-7. 0 Not Available [facility] [address] [place] [address] [facility] 1, [place], [address], 03/13/2025 13:43:58 03/13/2003/13/2025 URINA LYSIS WITH MICRO pro 1+ Not Available [facility] [address] [place] [address] [facility] 1, [place], [address], 03/13/2025 13:43:58 03/13/20 25 03/13/2025 URINA LYSIS WITH MICRO uro 0.2 E.U./D L Not Available [facility] [address] [place] [address] [facility] 1, [place], [address], 03/13/2025 13:43:58 03/13/2003/13/2025 URINA LYSIS WITH MICRO nit NEGATI VE Not Available [facility] [address] [place] [address] [facility] 1, [place], [address], 03/13/2025 13:43:58 03/13/2003/13/2025 URINA LYSIS WITH MICRO blo 3+ Not Available [facility] [address] [facility] 1, [place], [address], 03/13/2025 13:43:58 03/13/20 25 03/13/2025 URINA LYSIS WITH MICRO noe TRACE Not Available [facility] [address] [place] [facility], [place], [address], 03/13/2025 13:43:58 03/13/20 25 03/13/2025 URINA LYSIS WITH MICRO WBC 8-10 Not Available [facility] [address] [place] [facility], [place], [address], 03/13/2025 13:43:58 03/13/20 25 03/13/2025 URINA LYSIS WITH MICRO RBC 30-40 Not Available [facility] [address] [facility] 1, [place], [address], 03/13/2025 13:43:58 03/13/20 25 03/13/2025 URINA LYSIS WITH MICRO epi cells 10-12 Not Available [facility] [address] [facility] 1, [place], [address], 03/13/2025 13:43:58 03/13/20 25 03/13/2025 URINA LYSIS WITH MICRO bacteria 1+ MIXED FRANCISCO JAVIER Not Available [facility] [address] [facility] 1, [place], [address], 03/13/2025 13:43:58 03/13/20 25 03/13/2025 URINA LYSIS WITH MICRO other NEGATI VE Not Available [facility] [address] [facility] 1, [place], [address], 03/13/2025 13:43:58 03/13/20 25 03/14/2025 CULTU RE, URINE , ROUTI NE culture, urine, routine SEE NOTE CULTU RE, URINE , ROUTI NE Micro Numbe r: [id number] Test Statu s: Final Speci men [...] Cultu re Trans port Tube. Not Available [facility] [address] [address], [place], [address], 03/14/2025 21:15:28 Result Notes None recorded. Problems Name Problem SNOMED Code Status Onset Date Resolution Date Notes Provider Name and Address Organization Details Recorded Time Benign essential hypertensio n 6284821 [facility] 4 12:42:58 Blood pressure above reference range [id number] [facility] JEFFY LEY [facility] 5 14:52:36 Hypertrigly ceridemia [id number] [facility] JEFFY LEY [facility] 5 14:52:36 Mycosis [id number] [facility] 5 14:52:36 Dyslipidemi a [id number] [facility] JEFFY LEY [facility] 5 14:52:36 Biliary colic 79952813 Active PHILIP BARDALES [facility] 4 12:43:08 Hypertensiv e disorder 38180537 Active AMISHA GUERRA, [address], [address], [facility] 5 10:48:16 Dizziness [id number] Selina GUERRA, [address], [address], [facility] 5 10:48:16 Herpes zoster [id number] [facility] 5 14:52:36 Bradycardia 89419911 [facility] 4 12:43:11 Atrial fibrillatio n 65467367 Active AMISHA GUERRA, [address], [address], [facility]ine[facility]C. 5 10:48:16 Coronary arterioscle rosis 32301945 [facility] 4 12:43:19 Dyspnea on exertion 24191444 Active JEFFY AHNOVER [facility] 5 14:52:36 Essential tremor 664235832 [facility] AMISHA GUERRA, [address], [address], [facility] 5 10:48:16 Palpitation s [id number] [facility] JEFFY LEY [facility] 5 14:52:36 Gout 90828611 Active JEFFY LEY [facility] 5 14:52:36 Benign hypertensio n 54277636 [facility] 4 12:43:02 Asthenia 01745071 Active AMISHA GUERRA, [address], [address], [facility] 5 10:48:16 Metabolic encephalopa thy 15783182 Active JEFFY LEY [facility] 5 14:52:36 Urinary tract infectious disease 00088278 Active AMISHAMara GUERRA, [address], [address], [facility] 5 10:48:16 Lactic acidosis 35851840 Active JEFFY [facility] 5 14:52:36 Chest pain 70974016 Active AMISHA GUERRA, [address], [address], [facility] 5 10:48:16 Benign paroxysmal positional vertigo 642303233 Active AMISHA GUERRA, [address], [address], [facility] 5 10:48:16 Labyrinthit is [id number] [facility] 5 14:52:36 Disturbance of consciousne ss [id number] [facility] JEFFY [facility] 5 14:52:36 Vertigo [id number] [facility] 14:52:36 Altered mental status [id number] [facility] JEFFY [facility] 14:50:27 Hypertensiv e urgency [id number] [facility] JEFFY [facility] 14:52:36 Amnesia [id number] [facility] 14:52:36 Objective vertigo [id number] [facility] 14:52:36 Reactive airway disease [id number] [facility] 14:52:36 Near syncope 255872879 Active AMISHA GUERRA, [address], [address] [place] [address] 5, [facility] 10:48:16 Sepsis 11254754 Active AMISHA GUERRA, [address], [address] [place] [address] 5, [facility] 10:44:32 Sprain of left ankle [id number] 9105 Active AMISHA GUERRA, [address], [address] [place] [address] 5, [facility] 10:46:10 Headache [id number] Selina GUERRA, [address], [address] [place] [address] 5, [facility] 10:48:16 Acute urinary tract infection 718345328 Active AMISHA GUERRA, [address], [address] [place] [address] 5, [facility] 10:46:10 Acute labyrinthit is 3475334444414 03 Active AMISHA GUERRA, [address], [address] [place] [address] 5, [facility] 10:46:10 Adjustment disorder with anxious mood 39582405 Active AMISHA GUERRA, [address], [address] [place] [address] 5, [facility] 10:46:10 Anxiety 87224256 Active AMISHA GUERRA, [address], [address] [place] [address] 5, [facility] 08/05/202 5 10:46:10 Acute cystitis [id number] Selina GUERRA, [address], [address], [facility] 5 10:46:10 Acute kidney injury [id number] Selina GURERA, [address], [address], [facility] 5 10:41:33 Hypomagnese elvira [id number] Selina GUERRA, [address], [address], [facility] 5 10:41:33 Syncope [id number] Selina GUERRA, [address], [address], [facility] 5 10:41:33 Syncope and collapse [id number] Selina GUERRA, [address], [address], [facility] 5 10:41:33 Dizziness of unknown cause [id number] Selina GUERRA, [address], [address], [facility] 5 10:41:33 Lactic acid level above reference range [id number] Selina GUERRA, [address], [address], [facility] 5 10:41:33 History of cholecystec nader 722165986 Active 2019 JEFFY styles [facility] 5 14:52:36 Essential hypertensio n 16850994 Active 2023 [facility] 4 17:51:41 Cardiomegal y 6182878 Active 2023 mild [facility] 4 17:56:13 Atrial fibrillatio n with rapid ventricular response 5277741288070 09 Active 2023 AMISHA GUERRA, [address], [address] [place] [address] 5, [facility] 5 10:48:16 Type 2 diabetes mellitus 87847133 Active 2024 AMISHA GUERRA, [address], [address] [place] [address] 5, [facility] 5 19:26:52 Parkinson's disease 14903593 Active 2024 AMISHA GUERRA, [address], [address] [place] [address] 5, [facility] 5 19:28:20 Congestive heart failure 79510318 Active 2024 AMISHA GUERRA, [address], [address], [facility] 5 19:29:24 Chronic kidney disease stage 3 355776744 Active [address], [address], [facility] 5 19:32:28 Problem Notes None recorded. Procedures Surgical History Date Name Laterality Status Provider Name and Address Organization Details Recorded Time 01/24/20 25 plain X-ray of chest completed PHILIP JEFFY [facility] 01/24/2025 15:14:07 01/24/[address] of head completed PHILIP [facility] 01/24/2025 15:14:57 08/15/19 25 plain X-ray of chest completed [facility] 08/19/2024 09:37:52 04/21/[address] of head completed [facility] 04/24/2024 14:38:54 01/09/20 24 plain X-ray of chest completed [facility] 01/09/2024 18:48:47 01/09/[address] of head completed [facility] 01/09/2024 18:49:46 01/09/20 24 procedure on neck completed [facility] 01/09/2024 18:52:29 11/18/19 24 plain X-ray of chest completed [facility] 11/22/2023 19:57:57 11/02/19 24 plain X-ray of chest completed [facility] 11/02/2023 17:49:11 11/02/[address] of head completed [facility] 11/02/2023 17:50:27 07/29/19 24 plain X-ray of chest completed [facility] 08/01/2023 17:22:55 07/29/[address] of head completed [facility] 08/22/2023 17:24:25 07/28/19 24 plain X-ray of chest completed [facility] 08/22/2023 17:22:37 04/21/20 23 plain X-ray of chest completed [facility] 05/17/2023 12:28:28 03/27/20 23 [facility]/28[facility]23 16:10:21 03/27/20 23 Doppler ultrasonography of venous structure of limb completed [facility] 03/28/2023 16:11:27 [facility] 08/12/2024 14:48:54 Imaging Results None recorded. Procedure Notes None recorded. Medical Equipment None Reported. Allergies Allergen ID Allergen Name Allergen Category Reaction Reaction Severity Criticality Documentation Date Start Date Code Code System Note Provider Name and Address Organization Details Recorded Time 95856 lisinopri l medicatio n Not available Not available Not available 11/29/20232024 48915 RxNorm AMISHA GUERRA, [address], [address], [facility], Alec 10:48:03 Medications Name Sig Start [...] t Available atorvasta tin daily 12/19 completed 06131; Recorded 04/14/20 12:02PM by Philip Bardales CMT (i viky through [facility]), Refill Request; Mail Order Quantity : 90 Tablet; Mail Order Days: 90 Days; Refill Quantity : 0; Not Available Not Available Not Available propranol ol daily 12/19 completed 0; Recorded 06/23/19 2:53PM by Cheyanne Hough, Office Visit; Not Available Not Available Not Available irbesarta n at bedtime 12/19 completed 0; Recorded 06/23/19 23 2:53PM by Cheyanne Hough, Office Visit; Not Available Not Available Not Available furosemid e as needed 01/04 completed 0; Recorded 06/23/19 23 2:53PM by Cheyanne Hough, Office Visit; Not Available Not Available Not Available hydrocort isone 01/04 completed 0; Recorded 06/23/19 23 2:53PM by Cheyanne Hough, Office Visit; Not Available Not Available Not Available Potassium Chloride ER daily 01/04 completed 0; Recorded 06/23/19 23 2:53PM by [...] Updated DateTime 5 157.48 cm 41.2 kg/m2 843057. 28 g 95 % 82 /min 22 /min 138/68 mm[Hg] PHILIP JEFFY [facility] 5 10:22:27 Social History Question Answer Notes LastModified by EpicPledge Details LastModified Time Tobacco Smoking Status Never Smoker [facility] 01/04/2023 12:21:22 What Was The Date Of Your Most Recent Tobacco Screening? 10/29/2024 [email or web address] Information not available 10/29/2024 Sex: Unknown Functional Status Question Answer Note LastModified by [employer] Details LastModified Time Do you use any illicit or recreational drugs? No [email or web address] Information not available 01/04/2023 What is your level of alcohol consumption? None [email or web address] Information not available 01/04/2023 Mental Status None recorded. Family History Relationship Description Onset Age of this Age Resolved Age Notes LastModified by Organization Details LastModified Time Mother Cerebrovascu lar accident [email or web address] Not available 17:54:19 Mother Type 2 diabetes mellitus [email or web address] Not available 11/01 17:54:50 Father Myocardial infarction age 62 [email or web address] Not available 11/02/2023 17:55:36 Father Malignant neoplasm of colon [email or web address] Not available 09/04 12:10:24 Medical History Condition Response Heart Problems Y Hypertension Y High Cholesterol Y Gynecological HistoryNo gynecological history recorded. Obstetrics History GPAL:G 0 P 0 0 0 0 Immunizations Vaccine Type Date Status Note Provider Nam e and Address Organization Details Recorded Time Influenza, adjuvanted, trivalent, PF 5 completed PHILIP styles, [facility] 03/13/2025 11:28:30 Influenza, split virus, quadrivalent, PF 4 completed AMISHA GUERRA, [address], [address], [facility] 04/19/2024 12:39:02 COVID-19, mRNA, LNP-S, PF, 50 mcg/0.5 mL 3 completed AMISHA GUERRA, [address], [address], [facility] 06/05/2024 15:08:09 COVID-19, mRNA, LNP-S, PF, 100 mcg/0.5mL dose or 50 mcg/0.25mL dose 1 completed AMISHA GUERRA, [address], [address], [facility] 03/13/2025 10:46:13 COVID-19, mRNA, LNP-S, PF, 100 mcg/0.5mL dose or 50 mcg/0.25mL dose 1 completed AMISHA GUERRA, [address], [address], [facility] 03/13/2025 10:46:14 COVID-19, mRNA, LNP-S, PF, 100 mcg/0.5mL dose or 50 mcg/0.25mL dose 1 completed AMISHA GUERRA [address], [address], [facility] 03/13/2025 10:46:14 COVID-19, mRNA, LNP-S, bivalent, PF, 50 mcg/0.5 mL or 25mcg/0.25 mL dose 2 completed AMISHA GUERRA, [facility] [address] [place], [address], [facility] 10/04/2022 07:54:30 Tdap 1 completed AMISHA GUERRA, [facility] [address] [place] [address], [address], [facility] 10/04/2022 07:54:30 Pneumococcal conjugate PCV 13 7 completed AMISHA GUERRA, [address], [address], [facility] 03/13/2025 10:46:14 Influenza, high-dose, trivalent, PF 9 completed AMISHA GUERRA, [address], [address], [facility] 10/04/2022 07:54:30 Influenza, split virus, trivalent, preservative 0 completed AMISHA GUERRA, [address], [address], [facility] 10/04/2022 07:54:30 Influenza, split virus, trivalent, preservative 2 completed AMISHA GUERRA, [address], [address], [facility] 10/04/2022 07:54:30 Influenza, split virus, trivalent, preservative 4 completed AMISHA GUERRA, [address], [address], [facility] 10/04/2022 07:54:30 Influenza, split virus, trivalent, PF 5 completed AMISHA GUERRA, [facility] [address] [place] [address], [address], [facility] 10/04/2022 07:54:30 Hep B, adult 4 completed AMISHA GUERRA, [address], [address], [facility] 10/04/2022 07:54:30 Hep B, adult 3 completed AMISHA GUERRA, [address], [address], [facility] 10/04/2022 07:54:30 Hep B, adult 3 completed AMISHA GUERRA, [address], [address], [facility] 10/04/2022 07:54:30 Hep A, adult 4 completed AMISHA GUERRA, [address], [address], [facility] 10/04/2022 07:54:30 Hep A, adult 1 vandana GUERRA, [address], [address], [facility] 03/13/2025 10:46:14 Influenza, split virus, quadrivalent, PF 1 vandana GUERRA, [address], [address], [facility] 03/13/2025 10:46:14 Past Encounters Encounter ID Performer Location Encounter Start Date Encounter Closed Date Diagnosis/Indication Diagnosis SNOMED-CT Code Diagnosis ICD10 Code Diagnosis IMO Codes Diagnosis Note [id number] AMISHA GUERRA, [facility] [address] [place] [address] 03/13/2025 09:43:59 03/13/2025 11:30:48 Benign hypertension 44365913 I10 Continue current medication . Type 2 francisca betes mellitus 02346528 E11.22 A1C creeping up. Will check A1C today. 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 [id number] 46247 M1A.00X0 547099800 Administra tion of influenza vaccine 45918214 Z23 Nasal congestion 6705046 0 R09.81 64456 Recurrent urinary tract infection 997894213 N39.0 165537 General ex amination of patient 246175794 Z00.00 4974940 Health Concerns Section Related Observation LastModified by Organization Detai ls LastModified Time None Recorded Concern Status LastModified by Organization Details LastModified Time None Recorded Payers Encounter Date Sequence Insurance Name Policy Number Policy May Covered Member ID May Member ID Guarantor Name 03/13/2025 1 [facility] (MEDICARE REPLACEMENT/A DVANTAGE - PPO) [id number] Kadi Hernandez [id number] Kadi Hernandez Notes Date Note Type Note [...] shortness of breathandno chest pain. AMISHA GUERRA, [facility] [address] [place], [address], [facility] 03/13/2025 11:03:32 OBGyn Episode No OBEpisode recorded.
--- OUTSIDE RECORDS SUMMARY | 2025-03-31 01:01 | XMS_ITS | Clinical Summary ---
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
--- OUTSIDE RECORDS SUMMARY | 2025-03-31 01:01 | XMS_ITS | Encounter Summary ---
Author Organization [facility] Address [address] [place] [address] Care Team Providers Care Electronic Funds Transfer Coordinator Name Role Phone Unavailable Primary Care Provider Unavailabl e Encounter Details Date Type Department Care Team (Late st Contact Info) Description 04/10/[address] 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
--- OUTSIDE RECORDS SUMMARY | 2025-03-31 01:01 | XMS_ITS | Encounter Summary ---
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
--- OUTSIDE RECORDS SUMMARY | 2025-03-31 01:01 | XMS_ITS | Encounter Summary ---
Author Organization [facility] Address [address] [place] [address] Care Team Providers Care Bobtail Driver Name Role Phone Unavailable Primary Care Provider Unavailabl e Encounter Details Date Type Department Care Team (Late st Contact Info) Description 07/24/2003 Outpatient Historical [facility] [address] [place] [phone] Benny Asif DO [address] [place] [phone] ABN INVOLUN MOVEMENT NEC (Primary Dx); HEADACHE; Pure hypercholesterolem; CONJUNCTIVITIS NOS Social History Tobacco Use Types Packs/Day Years Used Date Smoking Tobacco: Never Assessed Comments Unknown Sex and Gender Information Value Date Recorded Sex Assigned at Not on file 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
--- OUTSIDE RECORDS SUMMARY | 2025-03-31 01:01 | XMS_ITS | Encounter Summary ---
Author Organization [facility] Address [address] [place] [address] Care Team Providers Care Quality Associate Name Role Phone Unavailable Primary Care Provider Unavailabl e Encounter Details Date Type Department Care Team (Late st Contact Info) Description 05/24/2006 Outpatient Historical [facility] [address] [place] [address] Benny Asif DO [address] [place] [phone] Routine Medical Exam (Primary Dx); Abnormal Involuntary Movements; Pure Hypercholesterolem; Vaccine for influenza Social History Tobacco Use Types Packs/Day Years Used Date Smoking Tobacco: Never Assessed Comments Unknown Sex and Gender Information Value Date Recorded Sex Assigned at Not on file Legal Sex Female 4:[address]PERVISOR Gender Identity Not on file Sexual Orientation [...]
--- NOTE | 2025-03-31 01:04 | ECG_ITS ---
[facility] 2025[facility]31 Pat Name: Kadi Hernandez Department: Room: Gender: Female Sciences Dean: : 1945 Requested By: Burke Tnoy Order Number: [id number] Al MD: Mandie Montano M.D. Measurements Intervals [place] Rate: 79 P: 82 FL: 150 QRS: 21 QRSD: 86 T: 33 QT: 353 QTc: 405 Interpretive Statements SINUS RHYTHM LOW QRS VOLTAGE IN PRECORDIAL LEADS [QRS DEFLECTION < 1.0 mV IN CHEST LEADS] NONSPECIFIC T-WAVE ABNORMALITY Compared to ECG 03/20/2025 11:05:22 Low QRS voltage now present Sinus bradycardia no longer present T-wave abnormality still present Baseline artifacts, need to repeat Electronically Signed On 03-31-2025 10:32:17 CORSETIER by Mandie Montano M.D. [email or web address]/[email or web address] [id number]
[2025-03-31 01:16] VITALS: BP 198/72
--- NOTE | 2025-03-31 01:29 | CTR_ITS ---
PROCEDURE INFORMATION: Exam: CT Head Without Contrast Exam date and time: 03/31/2025 1:55 AM Age: 80 years old Clinical indication: Dizziness; Additional info: Cp/stack with prev CVA and minor trauma TECHNIQUE: Imaging protocol: Computed tomography of the head without contrast. Radiation optimization: All CT scans at this facility use at least one of these dose optimization techniques: automated exposure control; mA and/or kV adjustment per patient size (includes targeted exams where dose is matched to clinical indication); or iterative reconstruction. COMPARISON: CT head thrombolytic [id number] 03/20/2025 9:07 AM RADIATION DOSE METRICS: Total DLP (mGy-cm): 890.88 FINDINGS: Brain: No acute intracranial hemorrhage. No midline shift or mass effect. No acute territorial infarct. Global age-related cerebral atrophy. Chronic, age related microangiopathy, consistent periventricular and subcortical white matter hypoattenuation. Cerebral ventricles: No ventriculomegaly. Paranasal sinuses: Visualized sinuses are unremarkable. No fluid levels. Mastoid air cells: Visualized mastoid air cells are well aerated. Bones: Unremarkable. No acute fracture. Soft tissues: Unremarkable. CT/CT head wo con* [id number] IMPRESSION: No acute intracranial hemorrhage. No midline shift or mass effect.
--- NOTE | 2025-03-31 01:29 | CTR_ITS ---
PROCEDURE INFORMATION: Exam: CT Chest Without Contrast; Diagnostic Exam date and time: 03/31/2025 2:00 AM Age: 80 years old Clinical indication: Other: Recent UTI, sepsi TECHNIQUE: Imaging protocol: Diagnostic computed tomography of the chest without contrast. Radiation optimization: All CT scans at this facility use at least one of these dose optimization techniques: automated exposure control; mA and/or kV adjustment per patient size (includes targeted exams where dose is matched to clinical indication); or iterative reconstruction. COMPARISON: CR XR chest 1V portable [id number] 03/20/2025 9:25 AM RADIATION DOSE METRICS: Total DLP (mGy-cm): 1050.16 FINDINGS: Tubes, catheters and devices: Implantable subcutaneous device in the left breast. Lungs: Mild atelectasis in the lingula. Pleural spaces: No focal consolidation, pleural effusion, or pneumothorax. Heart: Unremarkable. No cardiomegaly. No pericardial effusion. Lymph nodes: Unremarkable. No enlarged lymph nodes. Vasculature: Atherosclerotic changes of the aorta. Bones/joints: Degenerative changes of the spine. Soft tissues: Unremarkable. PROCEDURE INFORMATION: Exam: CT Abdomen And Pelvis Without Contrast Exam date and time: 03/31/2025 2:00 AM Age: 80 years old Clinical indication: Other: Recent UTI, sepsi TECHNIQUE: Imaging protocol: Computed tomography of the abdomen and pelvis without contrast. Radiation optimization: All CT scans at this facility use at least one of these dose optimization techniques: automated exposure control; mA and/or kV adjustment per patient size (includes targeted exams where dose is matched to clinical indication); or iterative reconstruction. COMPARISON: US renal BI* [id number] 01/25/2025 9:25 AM RADIATION DOSE METRICS: Total DLP (mGy-cm): 1050.16 FINDINGS: Liver: Normal. No mass. Gallbladder and biliary ducts: Cholecystectomy. Pancreas: Normal. No ductal dilation. Spleen: Normal. No splenomegaly. Adrenal glands: Normal. No mass. Kidneys and ureters: No nephrolithiasis, hydronephrosis, or obstructive uropathy. Stomach and bowel: Mild wall thickening of the sigmoid colon, likely from underdistention. Diverticulosis, without acute diverticulitis. No small bowel obstruction. No free air. Appendix: No evidence of appendicitis. Intraperitoneal space: See Stomach and bowel finding. Vasculature: Unremarkable. No abdominal aortic aneurysm. Lymph nodes: Unremarkable. No enlarged lymph nodes. Urinary bladder: Unremarkable as visualized. Reproductive: Hysterectomy. Bones/joints: Unremarkable. No acute fracture. Soft tissues: Unremarkable. CT/[place] [id number] IMPRESSION: No focal consolidation, pleural effusion, or pneumothorax. IMPRESSION: 1. Cholecystectomy. 2. Hysterectomy. 3. Diverticulosis, without acute diverticulitis. No small bowel obstruction. No free air. 4. No nephrolithiasis, hydronephrosis, or obstructive uropathy.
[2025-03-31 01:36] LABS: Hematocrit 36.5 % (36-47); Hemoglobin 11.20 g/dL (11.27-16.99); Mean Corpuscular HGB Conc 30.7 g/dL (30-55); Mean Corpuscular Hemoglobin 28.8 pg (27-33); Mean Corpuscular Volume 93.8 fl (85-98); Nucleated Red Blood Cells % 0 %; Platelet Count 235 10^3/cmm (157-399); Red Blood Count 3.89 10^6/uL (3.85-5.65); White Blood Count 7.15 10^3/uL (3.29-11.43)
[2025-03-31 01:53] LABS: Lactic Sepsis W/Reflex 2.5 mmol/L (0.5-2.2)
[2025-03-31 01:55] LABS: Troponin(5th) Baseline 16 ng/L (0-10)
[2025-03-31 02:06] LABS: Anion Gap 15.9 (5-19); Blood Urea Nitrogen 15 mg/dL (8-23); CRP High Sensitivity Cardiac 1.410 mg/dL (0.0-0.3); Calcium 10.1 mg/dL (8.5-10.5); Carbon Dioxide 27 mmol/L (22-29); Chloride 103 mmol/L (98-107); Glucose 182 mg/dL (65-115); Lipase 43 U/L (13-60); Magnesium 1.8 mg/dL (1.7-2.3); NT Pro B Type Natriuretic Pept 239 pg/mL (0-450); Osmolality Calculated 299 mOsm/kg (285-295); Potassium 3.9 mmol/L (3.5-5.1); Sodium 142 mmol/L (136-145); Thyroid Stimulating Hormone 2.71 uIU/mL (0.27-4.20)
--- NOTE | 2025-03-31 02:15 | W.ED.CHESTPA ---
HPI - Chest Pain General: Chief Complaint: Chest Pain Stated Complaint: CP, HUIZAR, Back Pain Time Seen by Provider: 03/31/25 01:04 History of Present Illness: Patient is a 80F with a history of asthma, hypertension, prior stroke, tremors, and dementia, HTN and AF on xarelto who presents with generalized chest pain and a slight headache, described as heaviness, not associated with SOB, vomiting, diaphoresis or worsening with exertion. The HUIZAR is a dull sensation and radiates to her whole head, denies any syncope, abrupt onset, associated FND. Tremors are chronic but have worsened over the past 1-2 days. She recently completed a 7-day course of antibiotics for a urinary tract infection, with the last dose taken this morning. She denies abdominal pain, vomiting, or back pain. She reports no current mental health concerns but acknowledges memory issues consistent with dementia. She has had multiple recent hospitalizations and expresses anxiety about her symptoms and their impact on her family. Associated symptoms: Deny abdominal pain, dyspnea, fever(s) or palpitations Related Data Home Medications ?Medication ?Instructions ?Recorded ?Confirmed fluticasone propionate 50 2 spray intranasal DAILY PRN 09/15/21 01/24/25 mcg/actuation nasal Allergy Symptoms spray,suspension (Flonase Allergy Relief) atorvastatin 20 mg tablet 20 mg PO BEDTIME 07/29/23 01/24/25 donepezil 10 mg tablet 10 mg PO DAILY 11/02/23 01/24/25 cholecalciferol (vitamin D3) 1,250 50,000 unit PO Q7D 04/21/24 01/24/25 mcg (50,000 unit) capsule rivaroxaban 20 mg tablet (Xarelto) 20 mg PO QAM 06/02/24 01/24/25 albuterol sulfate 90 mcg/actuation 2 puff inhalation Q6H 09/07/24 01/24/25 aerosol inhaler (Ventolin HFA) amiodarone 200 mg tablet 200 mg PO DAILY 09/07/24 01/24/25 budesonide-formoterol HFA 160 2 puff inhalation BID 09/07/24 01/24/25 mcg-4.5 mcg/actuation aerosol inhaler (Symbicort) icosapent ethyl 1 gram capsule 1 g PO DAILY 09/07/24 01/24/25 (Vascepa) estradiol 0.01% (0.1 mg/gram) See Rx Instructions .Route .COMPLEX 01/24/25 01/24/25 vaginal cream ketoconazole 2 % shampoo See Rx Instructions .Route .COMPLEX 01/24/25 01/24/25 vitamins with calcium 1 tab PO DAILY 01/24/25 01/24/25 no.72-iron 27 mg-folic acid 1 mg tablet ( Vitamins Plus Low Iron) Previous Rx's ?Medication ?Instructions ?Recorded isosorbide mononitrate 60 mg 60 mg PO QAM #100 tabs 05/13/24 tablet,extended release 24 hr hydralazine 25 mg tablet 25 mg PO BID #180 tabs 08/16/24 meclizine 12.5 mg tablet 12.5 mg PO TID PRN dizziness #20 09/16/24 tabs alprazolam 0.5 mg tablet 0.5 mg PO BID PRN stress 30 days 11/28/24 #60 tabs losartan 50 mg tablet 25 mg (1/2 x 50 mg) PO DAILY #180 01/25/25 tabs diazepam 2 mg tablet (Valium) 2 mg PO BID PRN muscle spasm #8 03/31/25 tabs Allergies Allergy/AdvReac Type Severity Reaction Status Date / Time lisinopril Allergy coughing Verified 03/31/25 01:07 Review of Systems General: Reports: 10 or more systems reviewed and unremarkable except in HPI and below Const: Denies: fever(s) or chills Eyes: Denies: change in vision or eye discharge Card: Reports: chest pain; Denies: palpitations or swelling of feet/ankles Resp: Denies: dyspnea or productive cough GI: Denies: abdominal pain or diarrhea Musc: Denies: neck pain or back pain Skin/Breast: Denies: rash or jaundice Neuro: Reports: headache(s) and restless legs; Denies: numbness in extremities or weakness in extremities Oni/Lymph: Denies: easy bruising or easy bleeding [facility] ED PFSH: Medical History (Updated 03/31/25 @ 04:40 by Burke Tony DO) Dizziness of unknown cause Reactive airway disease Memory loss UTI (urinary tract infection) Benign positional vertigo Benign hypertension Atrial fibrillation with rapid ventricular response Hypertriglyceridemia Exertional shortness of breath Hypertensive urgency Hypertension Generalized weakness Chest pain UTI (urinary tract infection) Bradycardia CAD (coronary artery disease) Dizziness Atrial fibrillation Essential tremor Generalized weakness Lactic acidosis Acute metabolic encephalopathy Sepsis Atrial fibrillation Urinary tract infection Elevated blood pressure reading Palpitation HTN (hypertension) Gout Dyslipidemia Melanoma Surgical History Hx of cataract extraction History of cholecystectomy Status post laparoscopic cholecystectomy (03/30/20) History of removal of ovarian cyst History of carpal tunnel release S/P complete hysterectomy H/O esophagogastroduodenoscopy 1977 H/O colonoscopy 2016 Family History Mother Melanoma Diabetes Stroke Father CAD (coronary artery disease) unknown age of onset, [place] at 62 Cancer Family/Other Cancer Grandmother Cancer Brother Diabetes Denies family history of Clotting disorder Dementia Chronic kidney disease (CKD) Suicide Anesthesia complication Bleeding disorder Lung disease Social History (Updated 01/24/25 @ 02:06 by Kit Mata MD) Smoking and tobacco/nicotine status: never used tobacco/nicotine Alcohol intake: never Substance/Drug Use: never Additional social history: She worked at a [employer] in [place] for years then met her who 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 Patient states she wants DNR status as discussed on 01/24/2025. Patient states that her mother needed CPR that she requested and never did think right after that Household members: spouse Marital status: Current occupational status: retired Physical Exam Narrative: EXAM NARRATIVE: Patient overall well-appearing, afebrile and vital signs stable on arrival, no acute distress. head normocephalic, PERRL, moist mucous membranes, no cervical LAD. breathing comfortably on RA, saturating well, clear BL and no adventitious breath sounds, able to speak in full sentences without getting SOB, no signs of respiratory distress. NSR with no murmurs, no leg swelling, 2+ pulses throughout, good cap refill. Abdomen soft, nontender, nondistended, no localizing or peritonitic signs, no overlying skin changes, no CVA ttp. 4 extremities without apparent deformity or injury. GCS 15, but at times slightly confused on recent hx, able to answer questions and follow commands appropriately, moving all 4 extremities symmetrically and spontaneoulsy. Mild resting tremor to all off extremities, still present with movement. Normal mood and affect. Course Vital Signs: Vital signs: Vital Signs Temperature 97.9 F 03/31/25 00:59 Pulse Rate 62 03/31/25 03:43 Respiratory Rate 18 03/31/25 00:59 Blood Pressure 165/91 03/31/25 03:43 Pulse Oximetry 94 03/31/25 03:43 Oxygen Delivery Me thod Room Air 03/31/25 03:43 MDM - Chest Pain Medical Decision Making -ddx: URI, PNA, UTI, tension HUIZAR, migraine, ACS, dysrhythmia, essential tremor -patient overall well appearing, with generalized chest pain and a headahce, no reported FND, appears anxious, has had multiple recent hospitalizations, just finished abx for a UTI this morning. due to generalized nature of complaints, at times, difficult to follow historian with recent abx and infection but also CKD, obtained CT parker dry scans, cardiac and infectious goldsmith, treated with Valium, as worst of her complaints truly seemed to be the tremors bothering her and seemingly exacerbated from baseline, self reported as increased stress. -CT scans with no intracrnail trauma or mass, no intraabdominal surgical or infectious pathology, CT chest with no signs of infiltrate, fluid overload. Labs reassuring for no systemic infectious process, no electrolyte abnl, no end organ damage, troponins mildly up but around baseline gerry with CKD, no EKG changes and no large delta, low clinical concern for ACS at this time. patient had much symptom improvement of her anxiety and tremors with the Valium, offered admission for furhter monitoring of her cardiac status in setting of her recent infection, but since felt better she was comfortable going home and having close outpatient fu with Cardiology, HEART score of 4 and seemingly reasonable with no active CP or concerns for ongoign ACS, dc'd in stable condition with at beside and short course of Valium prescribed and instructed her and on when to use it, agreeable and dc'd with strict return precautions given. Lab Data 03/31/25 01:15 03/31/25 01:15 Radiology Impressions Chest/Abdomen/Pelvis CT 03/31/25 01:29 IMPRESSION: No focal consolidation, pleural effusion, or pneumothorax. IMPRESSION: 1. Cholecystectomy. 2. Hysterectomy. 3. Diverticulosis, without acute diverticulitis. No small bowel obstruction. No free air. 4. No nephrolithiasis, hydronephrosis, or obstructive uropathy. Head CT 03/31/25 01:29 IMPRESSION: No acute intracranial hemorrhage. No midline shift or mass effect. Laboratory Results WBC 7.15 10^3/uL (3.29-11.43) 03/31/25 01:15 RBC 3.89 10^6/uL (3.85-5.65) 03/31/25 01:15 Hgb 11.20 g/dL (11.27-16.99) L 03/31/25 01:15 Hct 36.5 % (36-47) 03/31/25 01:15 MCV 93.8 fl (85-98) 03/31/25 01:15 MCH 28.8 pg (27-33) 03/31/25 01:15 MCHC 30.7 g/dL (30-55) 03/31/25 01:15 RDW 15.7 % (12.1-15.1) H 03/31/25 01:15 Plt Count 235 10^3/cmm (157-399) 03/31/25 01:15 MPV 10.9 fL (7.4-10.4) H 03/31/25 01:15 Neut % (Auto) 56.3 % 03/31/25 01:15 Lymph % (Auto) 25.9 % 03/31/25 01:15 [place] % (Auto) 11.6 % 03/31/25 01:15 Eos % (Auto) 5.0 % 03/31/25 01:15 Baso % (Auto) 0.8 % 03/31/25 01:15 Neut # (Auto) 4.02 10^3/uL (1.8-7.7) 03/31/25 01:15 Lymph # (Auto) 1.9 10^3/uL (0.8-4.8) 03/31/25 01:15 [place] # (Auto) 0.8 10^3/uL (0.2-0.9) 03/31/25 01:15 Eos # (Auto) 0.4 10^3/uL (0.0-0.8) 03/31/25 01:15 Baso # (Auto) 0.1 10^3/uL (0.0-0.1) 03/31/25 01:15 Nucleated RBC % (auto) 0 % 03/31/25 01:15 Nucleated RBCs # 0.0 /100WBC 03/31/25 01:15 Sodium 142 mmol/L (136-145) 03/31/25 01:15 Potassium 3.9 mmol/L (3.5-5.1) 03/31/25 01:15 Chloride 103 mmol/L (98-107) 03/31/25 01:15 Carbon Dioxide 27 mmol/L (22-29) 03/31/25 01:15 Anion Gap 15.9 (5-19) 03/31/25 01:15 BUN 15 mg/dL (8-23) 03/31/25 01:15 Creatinine 1.3 mg/dL (0.5-0.9) H 03/31/25 01:15 GFR Calculation Not Reportable 03/31/25 01:15 Glucose 182 mg/dL (65-115) H 03/31/25 01:15 Calculated Osmolality 299 mOsm/kg (285-295) H 03/31/25 01:15 Lactic Acid 2.5 mmol/L (0.5-2.2) H 03/31/25 01:15 Calcium 10.1 mg/dL (8.5-10.5) 03/31/25 01:15 Phosphorus 3.6 mg/dL (2.5-4.5) 03/31/25 01:15 Magnesium 1.8 mg/dL (1.7-2.3) 03/31/25 01:15 Troponin T Baseline 16 ng/L (0-10) H 03/31/25 01:15 Troponin T 120 Minute 14.76 ng/L (0-10) H 03/31/25 03:15 Delta Troponin T -1.24 ABS# (0-10) L 03/31/25 03:15 C-React Prot High Sens 1.410 mg/dL (0.0-0.3) H 03/31/25 01:15 NT-Pro-B Natriuret Pep 239 pg/mL (0-450) 03/31/25 01:15 Lipase 43 U/L (13-60) 03/31/25 01:15 TSH 2.71 uIU/mL (0.27-4.20) 03/31/25 01:15 All radiology interpretation(s) finalized by discharge Clincial Decision Support The following clinical decision support tools were used to aid in care of the patient HEART Score -> History: Moderately Suspicious, EKG: Normal, Age: 65 or more yrs, Risk Factors: 1 or 2 Risk Factors, Troponin: Baseline Trop <16 ng/L. Resulting HEART Score: 4. Discharge Plan Discharge Patient Disposition: Home Clinical Impression: Benign essential tremor, Headache Condition: Stable Prescriptions: New diazepam [Valium] 2 mg tablet 2 mg PO BID PRN (Reason: muscle spasm) Qty: 8 0RF No Action fluticasone propionate [Flonase Allergy Relief] 50 mcg/actuation spray,suspension 2 spray intranasal DAILY PRN (Reason: Allergy Symptoms) Rx Instructions: administer into each nostril isosorbide mononitrate 60 mg tablet extended release 24 hr 60 mg PO QAM Qty: 100 3RF hydralazine 25 mg tablet 25 mg PO BID Qty: 180 2RF alprazolam 0.5 mg tablet 0.5 mg PO BID PRN (Reason: stress) 30 Days Qty: 60 0RF atorvastatin 20 mg tablet 20 mg PO BEDTIME cholecalciferol (vitamin D3) 1,250 mcg (50,000 unit) capsule 50,000 unit PO Q7D Rx Instructions: Monday Xarelto 20 mg tablet 20 mg PO QAM albuterol sulfate [Ventolin HFA] 90 mcg/actuation HFA aerosol inhaler 2 puff INHALATION Q6H budesonide-formoterol [Symbicort] 160-4.5 mcg/actuation HFA aerosol inhaler 2 puff INHALATION BID amiodarone 200 mg tablet 200 mg PO DAILY Rx Instructions: TAKE 1 TABLET BY MOUTH EVERY DAY icosapent ethyl [Vascepa] 1 gram capsule 1 g PO DAILY Rx Instructions: take 1 capsule BY MOUTH EVERY DAY meclizine 12.5 mg tablet 12.5 mg PO TID PRN (Reason: dizziness) Qty: 20 0RF donepezil 10 mg tablet 10 mg PO DAILY ketoconazole 2 % shampoo See Rx Instructions .ROUTE .COMPLEX Rx Instructions: shampoo SCALP 1-2 times a week NEEDED. let sit ON SCALP FOR FIVE minutes before rinsing estradiol 0.01 % (0.1 mg/gram) cream See Rx Instructions .ROUTE .COMPLEX Rx Instructions: USE DIRECTED VAGINALLY TWICE A WEEK Vitamin Plus Low Iron 27 mg iron- 1 mg tablet 1 tab PO DAILY losartan 50 mg tablet 25 mg PO DAILY Qty: 180 3RF Discharge Orders: Discharge ED (Routine); Ordered 03/31/25 Ordered By: Burke Tony Referrals: Bonnie Fleming FNP [Primary Care Provider, Unknown] Patient Instructions: Opioid Safety, Pain Management, Patient Portal & Francesca Instructions Activity Restrictions/Additional Instructions: You were seen for your headache, chest pain and muscle spasms, you were evaluated with labs, an EKG and CT imaging which was ultimately reassuring, you improved with anxiety/muscle spasm medication and were deemed stable to be discharged home. For similar events to this in the future, try using the Valium, 2 mg twice a day as needed, this medication is sedating and so avoid driving or other intense activity with it. Follow-up with your primary care physician next week for reevaluation of your symptoms and overall medication reconciliation. Return to the ED with severe worsening of her symptoms, fevers, episodes of sick severe confusion, episodes of passing out, worsening of her chest pain, breathing difficulties, any other emergent concerns. Print Language: Azeri Coding Level of Care Code ED Machine Rope Maker for Chg Fwd Heart Score HEART Score Components History: Moderately Suspicious EKG: Normal Age: 65 or more yrs Risk Factors: 1 or 2 Risk Factors Troponin: Baseline Trop <16 ng/L HEART Score RESULT HEART Score: 4
[2025-03-31 03:21] LABS: Reflex Lactate Order REFLEX LACTIC ORDERD
[2025-03-31 03:43] VITALS: BP 165/91; PULSE 62; O2SAT 94
[2025-03-31 03:43] LABS: Troponin 5 2HR 14.76 ng/L (0-10); Troponin 5 2HR Delta -1.24 ABS# (0-10)
== END 2025-03-31 04:57 | disposition home or self-care (01) ==
PROVIDERS: Emergency Provider Student in an Organized Health Care Education/Training Program; PCP Nurse Practitioner Family
DX: R51.9 Headache, unspecified (principal); G25.0 Essential tremor; E78.5 Hyperlipidemia, unspecified; I25.10 Atherosclerotic heart disease of native coronary artery without angina pectoris; I10 Essential (primary) hypertension; Z85.820 Personal history of malignant melanoma of skin
CPT/HCPCS: 36415; 70450; 71250; 74176; 80048; 83605; 83690; 83735; 83880; 84100; 84443; 84484; 85025; 86141; 93005; 99284; J9999

== ENCOUNTER 2025-04-05 22:27 | Emergency (ER) | payer MEDICARE, SELFPAY ==
--- OUTSIDE RECORDS SUMMARY | 2025-04-05 22:36 | XMS_ITS | Data Portability ---
Author Organization [facility] Address [address] [address] Care Team Providers Care Rn Utilization Management Um Name Role Phone AMISHA GUERRA Primary Care [...] 11 025 [facility], [address] [facility], [facility] 1, [place], [address], 03/13/2025 12:46:27 CMP, serum or plasma 2024 025 [facility], [address], [place] [address], [place], [address], 03/13/2025 13:00:06 CBC 2024 025 [facility], [address], [place] [address], [place], [address], 03/13/2025 12:05:17 urinaly sis, complet e 2024 025 [facility], [address], [place] [address], [place], [address], 03/13/2025 13:43:59 culture , urine 2024 025 [email or web address], [address] [place] [address], [address], [place], [address], 03/14/2025 21:15:29 hemoglo bin A1C/hem oglobin total, QN, blood 2024 025 [facility], [address], [place] [address], [place], [address], 12/10/2024 11:12:52 culture , urine 2024 025 [email or web address], [address] [place] [address], [address], [place], [address], 10/30/2024 20:36:09 urinaly sis, dipstic k 2024 025 [facility] ([facility]), [address] [place], [address], 10/29/2024 14:13:45 microal bumin/c reatini ne, mass ratio, urine 2024 025 [email or web address], [address] [place], [address], 10/11/2024 06:59:17 BMP, serum or plasma 2024 025 [facility], [address], [place] [address], [place], [address], 10/07/2024 16:12:21 CBC - all labs ordered by [facility]/ will fax YF 2024 025 [facility], [address], [address], [place], [address], 10/07/2024 15:33:46 magnesi um, serum or plasma 2024 025 [email or web address], [address] [facility], [place], [address], 10/08/2024 09:08:16 phospho baldo, serum or plasma 2024 025 [email or web address], [address], [place], [address], 10/08/2024 09:08:18 uric acid, serum or plasma 2024 025 [email or web address], [address], [place], [address], 10/08/2024 09:08:19 protein , total, urine 2024 025 [email or web address], [address] [facility] [address], [address] [place], [address], 10/11/2024 06:59:18 urinaly sis, complet e 2024 025 [facility], [address], [address], [place], [address], 10/08/2024 16:30:50 culture , urine 2024 025 [email or web address], [address] [facility] [address], [address] [place], [address], 10/10/2024 23:00:41 vitamin D, 25-hydr oxy, total, serum 2024 025 [email or web address], [address] [place], [address], 10/08/2024 09:08:21 albumin /globul in, ratio, serum 2024 025 [facility] ([facility]), [address] [place], [address], 10/07/2024 16:11:46 PTH (parath yroid hormone ), intact, serum or plasma 2024 025 [email or web address], [address] [facility], [place], [address], 10/08/2024 09:08:20 Referral None recorde d. Procedures None recorde d. Surgeries None recorde d. Imaging None recorde d. Medication Orders Clariti n 10 mg tablet 2024 025 [facility] [place], [address] [place] [address], [address], 03/14/2025 13:48:37 allopur inol 300 mg tablet 2024 025 [facility] [place], [address] [place], [address], 03/14/2025 13:48:37 cefdini r 300 mg capsule 2024 025 [id number], [address], [address], 11/10/2024 05:00:50 Patient TargetsNo targets recorded. Patient Instructions Encounter Date Encounter Id Patient Instructions Last Modified By Organization Details Last Modified Time 12/10/2024 [id number] Call or return for questions or concerns. Not available 12/10/2024 10:56:04 03/13/2025 [id number] preventing falls : care instructions Not available 03/13/2025 11:03:25 well visit, over 65: care instructions Not available 03/13/2025 11:03:25 Call or return for questions or concerns. Not available 03/13/2025 10:50:43 Reason for Referral None Reported. Results Created Date Observation Date Name Description Value Unit Range Abnormal Flag Note LastModifiedBy Organization Detail LastModifiedTime 10/08/1910/07/2024 CBC WBC 7.8 x10 4.0-10 .5 Not Available [facility] [address] [facility] [address], [place], [address], 10/07/2024 15:33:46 10/08/1910/07/2024 CBC RBC 4.21 x10 3.50-5 .50 Not Available [facility] [address], [place], [address], 10/07/2024 15:33:46 10/08/1910/07/2024 CBC HGB 12.9 g/dL 12.0-1 6.0 Not Available [facility] [address] [facility] [place] [address], [place], [address], 10/07/2024 15:33:46 10/08/1910/07/2024 CBC HCT 40.3 % 37.0-4 7.0 Not Available [facility] [address], [place], [address], 10/07/2024 15:33:46 10/08/1910/07/2024 CBC MCV 95.8 fL 80.0-9 9.9 Not Available [facility] [address] [facility] 1, [place], [address], 10/07/2024 15:33:46 10/08/19 25 10/07/2024 CBC MCH 30.7 pg 27.0-3 2.0 Not Available [facility] [address] [facility] 1, [place], [address], 10/07/2024 15:33:46 10/08/19 25 10/07/2024 CBC MCHC 32.1 g/dL 32.0-3 6.0 Not Available [facility] [address] [facility] 1, [place], [address], 10/07/2024 15:33:46 10/08/19 25 10/07/2024 CBC RDW 13.4 % 11.5-1 4.5 Not Available [facility] [address] [facility] 1, [place], [address], 10/07/2024 15:33:46 10/08/19 25 10/07/2024 CBC plt 227.9 x10 140.0- 451.0 Not Available [facility] [address] [facility] 1, [place], [address], 10/07/2024 15:33:46 10/08/19 25 10/07/2024 CBC lymphocytes % 29.3 % 20.0-5 0.0 Not Available [facility] [address] [facility] 1, [place], [address], 10/07/2024 15:33:46 10/08/19 25 10/07/2024 CBC granulcytes % 55.0 % 30.0-7 0.0 Not Available [facility] [address] [facility] Cait[address] [facility] 1, [place], [address], 10/07/2024 15:33:46 10/08/19 25 10/07/2024 CBC monocytes % 12.2 % 2.0-16 .0 Not Available [facility] [address] [facility] [address] [facility] 1, [place], [address], 10/07/2024 15:33:46 10/08/19 25 10/07/2024 CBC granulcytes# 4.3 x10 Not [facility] [address] [facility] 1, [place], [address], 10/07/2024 15:33:46 10/08/19 25 10/07/2024 CBC lymphocytes # 2.3 x10 Not Available [facility] [address] [facility] 1, [place], [address], 10/07/2024 15:33:46 10/08/19 25 10/07/2024 CBC monocytes # 1.0 x10 Not Avai lable [facility] [address] [facility] 1, [place], [address], 10/07/2024 15:33:46 10/08/19 25 10/07/2024 BMP (FEMA LE) glucose 122.0 mg/dL 60.0-9 9.0 high Not Available [facility] [address] [place] [facility], [place], [address], 10/07/2024 16:12:21 10/08/19 25 10/07/2024 BMP (FEMA LE) BUN (blood urea nitrogen) 17.0 mg/dL 10.0-2 6.0 Not Available [facility] [address] [facility] 1, [place], [address], 10/07/2024 16:12:21 10/08/19 25 10/07/2024 BMP (FEMA LE) creatinine (serum) 1.3 mg/dL 0.4-1. 5 Not Available [facility] [address] [facility] 1, [place], [address], 10/07/2024 16:12:21 10/08/19 25 10/07/2024 BMP (FEMA LE) BUN/creatini ne ratio 13.08 ratio Not Available [facility] [address] [facility] 1, [place], [address], 10/07/2024 16:12:21 10/08/19 25 10/07/2024 BMP (FEMA LE) calcium 10.1 mg/dL 8.4-10 .5 Not Available [facility] [address] [place] [facility], [place], [address], 10/07/2024 16:12:21 10/08/19 25 10/07/2024 BMP (FEMA LE) sodium 142.0 mmol/ L 136.0- 145.0 Not Available [facility] [address] [place] [facility], [place], [address], 10/07/2024 16:12:21 10/08/19 25 10/07/2024 BMP (FEMA LE) potassium 4.0 mmol/ L 3.5-5. 1 Not Available [facility] [address] [place] [facility], [place], [address], 10/07/2024 16:12:21 10/08/19 25 10/07/2024 BMP (FEMA LE) chloride 107.0 mmol/ L 98.0-1 10.0 normal Not Available [facility] [address] [place] [facility], [place], [address], 10/07/2024 16:12:21 10/08/19 25 10/07/2024 BMP (FEMA LE) C02 26.0 mmol/ L 22.0-3 1.0 Not Available [facility] [address] [place] [address] [facility] 1, [place], [address], 10/07/2024 16:12:21 10/08/19 25 10/07/2024 BMP (FEMA LE) anion gap 9.0 calc Not Available [facility] [address] [place] [address], [place], [address], 10/07/2024 16:12:21 10/09/19 25 10/08/2024 URINA LYSIS WITH MICRO color YELLOW Not Available [facility] [address] [place] [address], [place], [address], 10/08/2024 16:30:50 10/09/19 25 10/08/2024 URINA LYSIS WITH MICRO clarity CLOUDY Not Available [facility] [address] [place] [address], [place], [address], 10/08/2024 16:30:50 10/09/19 25 10/08/2024 URINA LYSIS WITH MICRO glu NEGATI VE Not Available [facility] [address], [place], [address], 10/08/2024 16:30:50 10/09/19 25 10/08/2024 URINA LYSIS WITH MICRO bili NEGATI VE Not Available [facility] [address] [place] [address], [place], [address], 10/08/2024 16:30:50 10/09/19 25 10/08/2024 URINA LYSIS WITH MICRO ket NEGATI VE Not Available [facility] [address] [place] [address], [place], [address], 10/08/2024 16:30:50 10/09/19 25 10/08/2024 URINA LYSIS WITH MICRO S.g >1.030 1.005- 1.025 high > Not Available [facility] [address] [place] [address], [place], [address], 10/08/2024 16:30:50 10/09/19 25 10/08/2024 URINA LYSIS WITH MICRO pH 5.5 5.0-7. 0 Not Available [facility] [address] [place] [address], [place], [address], 10/08/2024 16:30:50 10/09/19 25 10/08/2024 URINA LYSIS WITH MICRO pro NEGATI VE Not Available [facility] [address] [place] [address], [place], [address], 10/08/2024 16:30:50 10/09/19 25 10/08/2024 URINA LYSIS WITH MICRO uro 0.2 E.U./D L Not Available [facility] [address] [place] [address], [place], [address], 10/08/2024 16:30:50 10/09/19 25 10/08/2024 URINA LYSIS WITH MICRO nit NEGATI VE Not Available [facility] [address] [place] [address], [place], [address], 10/08/2024 16:30:50 10/09/19 25 10/08/2024 URINA LYSIS WITH MICRO blo NEGATI VE Not Available [facility] [address] [place] [address], [place], [address], 10/08/2024 16:30:50 10/09/19 25 10/08/2024 URINA LYSIS WITH MICRO noe NEGATI VE Not Available [facility] [address] [place] [address], [place], [address], 10/08/2024 16:30:50 10/09/19 25 10/08/2024 URINA LYSIS WITH MICRO WBC 3-4 Not Available [facility] [address] [place] [address], [place], [address], 10/08/2024 16:30:50 10/09/19 25 10/08/2024 URINA LYSIS WITH MICRO RBC NEGATI VE Not Available [facility] [address] [place] [address], [place], [address], 10/08/2024 16:30:50 10/09/19 25 10/08/2024 URINA LYSIS WITH MICRO epi cells 1-2 Not Available [facility] [address] [facility] 1, [place], [address], 10/08/2024 16:30:50 10/09/19 25 10/08/2024 URINA LYSIS WITH MICRO bacteria 3+++ BACTER IA abnormal Not Available [facility] [address] [facility] [place] [address], [place], [address], 10/08/2024 16:30:50 10/09/19 25 10/08/2024 URINA LYSIS WITH MICRO other 4-6 CALCIU M OXALAT E NIYAH LS abnormal Not Available [facility] [address] [facility] 1, [place], [address], 10/08/2024 16:30:50 10/08/19 25 10/08/2024 MAGNE SIUM magnesium 1.8 mg/dL 1.5-2. 5 normal Not Available [facility] [address], [address], 10/08/2024 09:08:16 10/08/19 25 10/08/2024 PHOSP HATE ( PHOSP HORUS ) phosphate ( phosphorus) 3.2 mg/dL 2.1-4. 3 normal Not Available [facility] [address] [place], [address], 10/08/2024 09:08:18 10/08/19 25 10/08/2024 URIC ACID uric acid 8.5 mg/dL 2.5-7. 0 high Thera peuti c targe t for gout patie nts: <6.0 mg/dL Not Available [facility] [address] [place], [address], 10/08/2024 09:08:19 10/08/1910/08/2024 PTH, INTAC T WITHO [...] or Low Aimee l High Not Available [facility] [address] [place], [address], 10/08/2024 09:08:20 10/08/19 25 10/08/2024 VITAM IN [...] /MS is recom avila d: order code 94805 (ace ents >2yrs ). See Note 1 Note 1 For addit ional infor osmin apodaca refer to http: //ariana Soto gnost ics.c om/fa q/FAQ 199 (This link is being provi ded for infor linwood tomas/ shira zuniga purpo ses only. ) Not Available [facility] [address] [place], [address], 10/08/2024 09:08:21 10/10/19 25 10/10/2024 CULTU RE, URINE , ROUTI NE culture, urine, routine SEE NOTE CULTU RE, URINE , ROUTI NE Micro Numbe r: [id number] Test Statu s: Final Speci men [...] Cultu re Trans port Tube. Not Available [place] [address] [place], [address], 10/10/2024 23:00:41 10/10/19 25 10/11/2024 ALBUM IN, RANDO M URINE W/CRE ATINI NE creatinine, random urine 212 mg/dL 20-275 normal Not Available [place] [address] [place], [address], 10/11/2024 06:59:17 10/10/19 25 10/11/2024 ALBUM IN, RANDO M URINE W/CRE ATINI NE albumin, urine 5.8 mg/dL see note: normal Refer ence Range : Refer ence Range Not estab lishe d Not Available [place] [address] [place], [address], 10/11/2024 06:59:17 10/10/19 25 10/11/2024 ALBUM IN, [...] ostic categ ory. Not Available [facility] [place] [place] [address] [place], [address], 10/11/2024 06:59:17 10/10/19 25 10/11/2024 URINE PROTE IN, TOTAL , RANDO M (W/O CREAT ININE ) protein, total, random ur 25 mg/dL 5-24 high Not Available [facility] [place] [address] [place], [address], 10/11/2024 06:59:18 10/16/19 25 10/15/2024 album in/gl obuli n, ratio , serum albumin 4.4 g/dL 3.5-5. 5 normal Not Available [facility] ([facility]) [address] [place] [address], [address], 10/07/2024 14:58:53 10/30/19 25 10/30/2024 CULTU RE, URINE , ROUTI NE culture, urine, routine SEE NOTE CULTU RE, URINE , ROUTI NE Micro Numbe r: [id number] Test Statu s: Final Speci men [...] recom avila d. Not Available [facility] [address] [place], [address], 10/30/2024 20:36:09 10/30/19 25 10/29/2024 urina lysis , dipst ick Leukocytes Trace Not Available [facility] ([facility]) [address] [place], [address], 10/29/2024 13:56:16 10/30/19 25 10/29/2024 urina lysis , dipst ick Nitrite negati ve Not Available [facility] ([facility]) [address] [place], [address], 10/29/2024 13:56:16 10/30/19 25 10/29/2024 urina lysis , dipst ick Urobilinogen .2 Not Available [facility] ([facility]) [address] [place], [address], 10/29/2024 13:56:16 10/30/19 25 10/29/2024 urina lysis , dipst ick Protein Negati ve Not Available [facility] ([facility]) [address] [place], [address], 10/29/2024 13:56:16 10/30/19 25 10/29/2024 urina lysis , dipst ick pH 5.5 Not Available [facility] ([facility]) [address] [place], [address], 10/29/2024 13:56:16 10/30/19 25 10/29/2024 urina lysis , dipst ick Blood Negati ve Not Available [facility] ([facility]) [address] [place], [address], 10/29/2024 13:56:16 10/30/19 25 10/29/2024 urina lysis , dipst ick Specific [place] 1.030 Not Available [facility] ( [facility]) [address] [place], [address], 10/29/2024 13:56:16 10/30/19 25 10/29/2024 urina lysis , dipst ick Ketone Negati ve Not Available [facility] ([facility]) [address] [place], [address], 10/29/2024 13:56:16 10/30/19 25 10/29/2024 urina lysis , dipst ick Bilirubin Negati ve Not Available [facility] ([facility]) [address] [place], [address], 10/29/2024 13:56:16 10/30/19 25 10/29/2024 urina lysis , dipst ick Glucose Negati ve Not Available [facility] ([facility]) [address] [place], [address], 10/29/2024 13:56:16 12/04/19 25 12/10/2024 HBA1C hemaglobin A1C 6.6 4.2-6. 5 high Not Available [facility] [address] [facility] [address], [place], [address], 12/10/2024 11:12:52 03/13/2003/13/2025 CBC WBC 7.9 x10 4.0-10 .5 Not Available [facility] [address], [place], [address], 03/13/2025 12:05:17 03/13/2003/13/2025 CBC RBC 4.27 x10 3.50-5 .50 Not Available [facility] [address], [place], [address], 03/13/2025 12:05:17 03/13/20 25 03/13/2025 CBC HGB 12.6 g/dL 12.0-1 6.0 Not Available [facility] [address] [facility] [address], [place], [address], 03/13/2025 12:05:17 03/13/2003/13/2025 CBC HCT 39.3 % 37.0-4 7.0 Not Available [facility] [address] [facility] 1, [place], [address], 03/13/2025 12:05:17 03/13/2003/13/2025 CBC MCV 92.0 fL 80.0-9 9.9 Not Available [facility] [address] [facility] 1, [place], [address], 03/13/2025 12:05:17 03/13/2003/13/2025 CBC MCH 29.5 pg 27.0-3 2.0 Not Available [facility] [address] [facility] 1, [place], [address], 03/13/2025 12:05:17 03/13/2003/13/2025 CBC MCHC 32.0 g/dL 32.0-3 6.0 Not Available [facility] [address] [facility] [facility] 1, [place], [address], 03/13/2025 12:05:17 03/13/20 25 03/13/2025 CBC RDW 14.6 % 11.5-1 4.5 high Not Available [facility] [address] [facility] 1, [place], [address], 03/13/2025 12:05:17 03/13/2003/13/2025 CBC plt 255.9 x10 140.0- 451.0 Not Available [facility] [address] [facility] [facility] 1, [place], [address], 03/13/2025 12:05:17 03/13/2003/13/2025 CBC lymphocytes % 24.2 % 20.0-5 0.0 Not Available [facility] [address] [facility] 1, [place], [address], 03/13/2025 12:05:17 03/13/20 25 03/13/2025 CBC granulcytes % 60.0 % 30.0-7 0.0 Not Available [place] [facility] [address] [facility] 1, [place], [address], 03/13/2025 12:05:17 03/13/20 25 03/13/2025 CBC monocytes % 10.3 % 2.0-16 .0 Not Available [facility] [address] [facility] 1, [place], [address], 03/13/2025 12:05:17 03/13/2003/13/2025 CBC granulcytes# 4.8 x10 Not Anabelle ilable [facility] [address] [facility] 1, [place], [address], 03/13/2025 12:05:17 03/13/2003/13/2025 CBC lymphocytes # 1.9 x10 Not Available [facility] [address] [facility] 1, [place], [address], 03/13/2025 12:05:17 03/13/20 25 03/13/2025 CBC monocytes # 0.8 x10 Not Avai lable [facility] [address] [place] [address] [facility] 1, [place], [address], 03/13/2025 12:05:17 03/13/2003/13/2025 HBA1C hemaglobin A1C 6.3 4.2-6. 5 Not Available [facility] [address] [place] [address] [facility] 1, [place], [address], 03/13/2025 12:46:27 03/13/20 25 03/13/2025 CMP (FEMA LE) glucose 198.0 mg/dL 60.0-9 9.0 high Not Available [facility] [address] [facility] [facility], [place], [address], 03/13/2025 13:00:06 03/13/2003/13/2025 CMP (FEMA LE) BUN (blood urea nitrogen) 21.0 mg/dL 10.0-2 6.0 Not Available [facility] [address] [facility], [place], [address], 03/13/2025 13:00:06 03/13/2003/13/2025 CMP (FEMA LE) creatinine (serum) 1.5 mg/dL 0.4-1. 5 Not Available [facility] [address] [facility], [place], [address], 03/13/2025 13:00:06 03/13/2003/13/2025 CMP (FEMA LE) BUN/creatini ne ratio 14.00 ratio Not Available [facility] [address] [facility], [place], [address], 03/13/2025 13:00:06 03/13/2003/13/2025 CMP (FEMA LE) eGFR calculated 35.5 Not Available [facility] [address] [facility] 1, [place], [address], 03/13/2025 13:00:06 03/13/2003/13/2025 CMP (FEMA LE) total protein 8.5 g/dL 6.0-8. 5 Not Available [facility] [address] [facility] 1, [place], [address], 03/13/2025 13:00:06 03/13/2003/13/2025 CMP (FEMA LE) total bilirubin 0.8 mg/dL 0.2-1. 3 Not Available [facility] [address] [facility] 1, [place], [address], 03/13/2025 13:00:06 03/13/20 25 03/13/2025 CMP (FEMA LE) albumin 4.3 g/dL 3.5-5. 5 Not Available [facility] [address] [facility], [place], [address], 03/13/2025 13:00:06 03/13/2003/13/2025 CMP (FEMA LE) globulin 4.2 calc Not Available [facility] [address] [facility] 1, [place], [address], 03/13/2025 13:00:06 03/13/2003/13/2025 CMP (FEMA LE) AST (SGOT) 86.0 U/L 0.0-46 .0 high Not Available [facility] [address] [facility] 1, [place], [address], 03/13/2025 13:00:06 03/13/2003/13/2025 CMP (FEMA LE) altv (SGPT) 63.0 U/L 13.0-6 9.0 normal Not Available [facility] [address] [facility], [place], [address], 03/13/2025 13:00:06 03/13/20 25 03/13/2025 CMP (FEMA LE) A/G ratio 1.0 ratio Not Available [facility] [address] [facility] 1, [place], [address], 03/13/2025 13:00:06 03/13/2003/13/2025 CMP (FEMA LE) ALP phos 64.0 U/L 30.0-1 40.0 normal Not Available [facility] [address] [facility], [place], [address], 03/13/2025 13:00:06 03/13/2003/13/2025 CMP (FEMA LE) calcium 10.7 mg/dL 8.4-10 .5 high Not Available [facility] [address] [facility] [address], [place], [address], 03/13/2025 13:00:06 03/13/2003/13/2025 CMP (FEMA LE) sodium 141.0 mmol/ L 136.0- 145.0 Not Available [facility] [address] [facility] [address], [place], [address], 03/13/2025 13:00:06 03/13/2003/13/2025 CMP (FEMA LE) potassium 4.4 mmol/ L 3.5-5. 1 Not Available [facility] [address] [facility] [address], [place], [address], 03/13/2025 13:00:06 03/13/2003/13/2025 CMP (FEMA LE) chloride 101.0 mmol/ L 98.0-1 10.0 normal Not Available [facility] [address] [facility] [address], [place], [address], 03/13/2025 13:00:06 03/13/2003/13/2025 CMP (FEMA LE) C02 27.0 mmol/ L 22.0-3 1.0 Not Available [facility] [address] [facility] 1, [place], [address], 03/13/2025 13:00:06 03/13/2003/13/2025 CMP (FEMA LE) anion gap 13.0 calc Not Available [facility]k [facility] [address] [facility] 1, [place], [address], 03/13/2025 13:00:06 03/13/2003/13/2025 CMP (FEMA LE) osmolality 298.9 calc Not Available [facility] [address] [place], [address], 03/13/2025 13:00:06 03/13/2003/13/2025 URINA LYSIS WITH MICRO color DARK YELLOW Not Available [facility] [address] [facility] [place] [address], [place], [address], 03/13/2025 13:43:58 03/13/2003/13/2025 URINA LYSIS WITH MICRO clarity CLOUDY Not Available [facility] [address] [facility] [facility] [place] [facility], [place], [address], 03/13/2025 13:43:58 03/13/2003/13/2025 URINA LYSIS WITH MICRO glu NEGATI VE Not Available [facility] [address] [facility] 1, [place], [address], 03/13/2025 13:43:58 03/13/2003/13/2025 URINA LYSIS WITH MICRO bili NEGATI VE Not Available [facility] [address] [facility] [facility] 1, [place], [address], 03/13/2025 13:43:58 03/13/2003/13/2025 URINA LYSIS WITH MICRO ket TRACE Not Available [facility] [address] [facility] [facility] 1, [place], [address], 03/13/2025 13:43:58 03/13/2003/13/2025 URINA LYSIS WITH MICRO S.g 1.030 1.005- 1.025 high Not Available [facility] [address] [facility] 1, [place], [address], 03/13/2025 13:43:58 03/13/20 25 03/13/2025 URINA LYSIS WITH MICRO pH 5.5 5.0-7. 0 Not Available [facility] [address] Caitlin [facility] 1, [place], [address], 03/13/2025 13:43:58 03/13/2003/13/2025 URINA LYSIS WITH MICRO pro 1+ Not Available [facility] [address], [place], [address], 03/13/2025 13:43:58 03/13/2003/13/2025 URINA LYSIS WITH MICRO uro 0.2 E.U./D L Not Available [facility] N[facility] [address] [place] [address], [place], [address], 03/13/2025 13:43:58 03/13/2003/13/2025 URINA LYSIS WITH MICRO nit NEGATI VE Not Available [facility] [address] [place] [address], [place], [address], 03/13/2025 13:43:58 03/13/2003/13/2025 URINA LYSIS WITH MICRO blo 3+ Not Available [facility] [address] [place] [address], [place], [address], 03/13/2025 13:43:58 03/13/2003/13/2025 URINA LYSIS WITH MICRO noe TRACE Not Available [facility] [address] [place] [address], [place], [address], 03/13/2025 13:43:58 03/13/2003/13/2025 URINA LYSIS WITH MICRO WBC 8-10 Not Available [facility] [address] [place] [address], [place], [address], 03/13/2025 13:43:58 03/13/2003/13/2025 URINA LYSIS WITH MICRO RBC 30-40 Not Available [facility] [address] [place] [address], [place], [address], 03/13/2025 13:43:58 03/13/20 25 03/13/2025 URINA LYSIS WITH MICRO epi cells 10-12 Not Available Miles argueta [facility] [address] Caitlin [facility] 1, [place], [address], 03/13/2025 13:43:58 03/13/20 25 03/13/2025 URINA LYSIS WITH MICRO bacteria 1+ MIXED FRANCISCO JAVIER Not Available [facility] [address] [facility] 1, [place], [address], 03/13/2025 13:43:58 03/13/20 25 03/13/2025 URINA LYSIS WITH MICRO other NEGATI VE Not Available [facility] [address] [facility] 1, [place], [address], 03/13/2025 13:43:58 03/13/20 25 03/14/2025 CULTU RE, URINE , ROUTI NE culture, urine, routine SEE NOTE CULTU RE, URINE , ROUTI NE Micro Numbe r: [id number] Test Statu s: Final Speci men [...] Cultu re Trans port Tube. Not Available [facility] [address], [place], [address], 03/14/2025 21:15:28 Result Notes None recorded. Problems Name Problem SNOMED Code Status Onset Date Resolution Date Notes Provider Name and Address Organization Details Recorded Time Benign essential hypertensio n 9888363 Active IAN Hern[facility]dez - [facility]ine 12:42:58 Blood pressure above reference range 96079430 Active JEFFY LEY [facility], [facility] 5 14:52:36 Hypertrigly ceridemia 726671293 [facility] 5 14:52:36 Mycosis 8676861 [facility] 14:52:36 Dyslipidemi a 841934580 Active JEFFY LEY [facility] 5 14:52:36 Biliary colic 06510802 Active PHILIP JEFFY [facility] 4 12:43:08 Hypertensiv e disorder 13332858 Active AMISHAMara GUERRA, [address], [address], [facility] 5 10:48:16 Dizziness 068939607 [facility] AMISHAMara GUERRA, [address], [address], [facility] 5 10:48:16 Herpes zoster 8056272 [facility] 5 14:52:36 Bradycardia 29592201 Active PHILIP JEFFY [facility] 4 12:43:11 Atrial fibrillatio n 15957201 Active AMISHA GUERRA, [address], [address], [facility] 5 10:48:16 Coronary arterioscle rosis 77982198 Active PHILIP JEFFY [facility] 4 12:43:19 Dyspnea on exertion 04415887 Active JEFFY styles, [facility] 5 14:52:36 Essential tremor 505713204 Active AMISHA GUERRA, [address], [address] [place] [address] 5, [facility] 5 10:48:16 Palpitation s 94240280 Active JEFFY JIL styles, [facility] 5 14:52:36 Gout 70436828 Active [facility] 5 14:52:36 Benign hypertensio n 42620490 Active [facility]IP [facility] 4 12:43:02 Asthenia 73314570 Active AMISHA GUERRA, [address], [address] [place] [address] 5, [facility] 5 10:48:16 Metabolic encephalopa thy 86188461 Active JEFFY LEY [facility] 5 14:52:36 Urinary tract infectious disease 99724972 Active AMISHA GUERRA, [address], [address] [place] [address] 5, [facility] 5 10:48:16 Lactic acidosis 25072880 [facility] 5 14:52:36 Chest pain 85538520 Selina GUERRA, [address], [address] [place] [address] 5, [facility] 5 10:48:16 Benign paroxysmal positional vertigo 627917941 Active AMISHA GUERRA, [address], [address] [place] [address] 5, [facility] 5 10:48:16 Labyrinthit is 36878908 Active JEFFY [facility] 5 14:52:36 Disturbance of consciousne ss 5179146 Active [facility] 5 14:52:36 Vertigo 936883862 Active JEFFY [facility] 5 14:52:36 Altered mental status 321849247 [facility] 5 14:50:27 Hypertensiv e urgency 318115017 Active [facility] 5 14:52:36 Amnesia 83757526 [facility] 5 14:52:36 Objective vertigo 24365330 [facility] 5 14:52:36 Reactive airway disease 057752248825 [facility] 5 14:52:36 Near syncope 092880297 Active AMISHA GUERRA, [address], [address], [facility] 5 10:48:16 Sepsis 72854763 Active AMISHA GUERRA, [address], [address], [facility] 5 10:44:32 Sprain of left ankle 7827805752285 9105 Active AMISHA GUERRA, [address], [address], [facility] 10:46:10 Headache 77296310 Selina GUERRA, [address], [address] [place] [address] 5, [facility] 5 10:48:16 Acute urinary tract infection 169903907 Selina GUERRA, [address], [address] [place] [address] 5, [facility] 10:46:10 Acute labyrinthit is 1429432268765 03 Active AMISHA GUERRA, [address], [address], [facility] 10:46:10 Adjustment disorder with anxious mood 74481966 Selina GUERRA, [address], [address] [place] [address], [facility] 10:46:10 Anxiety 97451709 Selina GUERRA, [address], [address] [place] [address], [facility] 10:46:10 Acute cystitis 36176431 Selina GUERRA, [address], [address] [place] [address], [facility] 10:46:10 Acute kidney injury 28549388 Selina GUERRA, [address], [address] [place] [address], [facility] 10:41:33 Hypomagnese elvira 012230998 Selina GUERRA, [place] [address], [place] [facility] 5 10:41:33 Syncope 496467064 Active AMISHA GUERRA, [address], [address] [place] [address] 5, [facility] 5 10:41:33 Syncope and collapse 888450950 Active AMISHA GUERRA, [address], [address] [place] [address] 5, [facility] 5 10:41:33 Dizziness of unknown cause 976617898 Active AMISHA GUERRA, [address], [address] [place] [address] 5, [facility] 5 10:41:33 Lactic acid level above reference range 6378956 Active AMISHA GUERRA, [address], [address] [place] [address] 5, [facility] 5 10:41:33 History of cholecystec nader 957070327 Active 2019 JEFFY styles, [facility] 5 14:52:36 Essential hypertensio n 92995586 Active 2023 PHILIP styles [facility] 4 17:51:41 Cardiomegal y 0546133 Active 2023 mild PHILIP styles [facility] 4 17:56:13 Atrial fibrillatio n with rapid ventricular response 5803228324186 09 Active 2023 AMISHA GUERRA, [address], [address], [facility] 5 10:48:16 Type 2 diabetes mellitus 37637635 Active 2024 AMISHA GUERRA, [facility] [address] [place], [address], [facility], Alec 19:26:52 Parkinson's disease 88864824 Active 2024 AMISHA GUERRA, [address], [address], [facility], Alec 19:28:20 Congestive heart failure 76917979 Active 2024 AMISHA GUERRA, [address], [address], [facility], Alec 19:29:24 Chronic kidney disease stage 3 769862796 Active 2024 AMISHA GUERRA, [address], [address], [facility], Alec 19:32:28 Problem Notes None recorded. Procedures Surgical History Date Name Laterality Status Provider Name and Address Organization Details Recorded Time 01/24/20 25 plain X-ray of chest completed [facility], Alec 01/24/2025 15:14:07 01/24/[address] [facility] [address] [facility] 01/24[facility]2025 15:14:57 08/15/19 25 [facility] 08/19/2024 09:37:52 04/21/[address] [facility] 04/24/2024 14:38:54 01/09/20 24 [facility] 01/09/2024 18:48:47 01/09/[address] 24 [address] of head completed [facility] 01/09/2024 18:49:46 01/09/20 24 procedure on neck completed [facility] 01/09/2024 18:52:29 11/18/19 24 plain X-ray of chest completed [facility] 11/22/2023 19:57:57 11/02/19 24 plain X-ray of chest completed [facility] 11/02/2023 17:49:11 11/02/[address] of head completed [facility] 11/02/2023 17:50:27 07/29/19 24 plain X-ray of chest completed [facility] 08/01/2023 17:22:55 07/29/[address] of head completed [facility] 08/22/2023 17:24:25 07/28/19 24 plain X-ray of chest completed [facility] 08/22/2023 17:22:37 04/21/20 23 plain X-ray of chest completed [facility] 05/17/2023 12:28:28 03/27/20 23 duplex ultrasonography of carotid artery completed [facility] 03/28/2023 16:10:21 03/27/20 23 Doppler ultrasonography of venous structure of limb completed [facility] 03/28/2023 16:11:27 cholecystostomy completed [facility] 08/12/2024 14:48:54 Imaging Results None recorded. Procedure Notes None recorded. Medical Equipment None Reported. Allergies Allergen ID Allergen Name Allergen Category Reaction Reaction Severity Criticality Documentation Date Start Date Code Code System Note Provider Name and Address Organization Details Recorded Time 47099 lisinopri l medicatio n Not available Not available Not available 11/29/20232024 82730 RxNorm AMISHA GUERRA, [facility] [address] [place], [address], [facility] 5 10:48:03 Medications Name Sig Start [...] t Available atorvasta tin daily 12/19 completed 49308; Recorded 04/14/20 22 12:02PM by Philip Bardales CMT (Authori viky through C[facility]ots[facility]), Refill Request; Mail Order Quantity : 90 Tablet; Mail Order Days: 90 Days; Refill Quantity : 0; Not Available Not Available Not Available propranol ol daily 12/19 completed 0; Recorded 06/23/19 2:53PM by Cheyanne Huogh, Office Visit; Not Available Not Available Not [...] Updated DateTime 5 157.48 cm 41.2 kg/m2 621911. 28 g 94 % 90 /min 18 /min 98.2 [degF] 166/90 mm[Hg] Jenny Franks [facility] 14:02:43 Date Recorded Body height Body mass index (BMI) Body weight Oxygen saturation Heart rate Respiratory rate Systolic And Diastolic Provider Name and Address Organization Details Last Updated DateTime 5 157.48 cm 41.2 kg/m2 013143. 28 g 94 % 80 /min 22 /min 146/72 mm[Hg] PHILIP BARDALES [facility]CNadine 5 10:10:41 Date Recorded Body height Body mass index (BMI) Body weight Oxygen saturation Heart rate Respiratory rate Systolic And Diastolic Provider Name and Address Organization Details Last Updated DateTime 5 157.48 cm 41.2 kg/m2 569754. 28 g 95 % 82 /min 22 /min 138/68 mm[Hg] PHILIP BARDALES [facility] 10:22:27 Social History Question Answer Notes LastModified by [employer] Details LastModified Time Tobacco Smoking Status Never Smoker PHILIP BARDALES [facility] 01/04/2023 12:21:22 What Was The Date Of Your Most Recent Tobacco Screening? 10/29/2024 [email or web address] Information not available 10/29/2024 Sex: Unknown Functional Status Question Answer Note LastModified by [employer] Details LastModified Time Do you use any illicit or recreational drugs? No [email or web address] Information not available 01/04/2023 What is your level of alcohol consumption? None Information not available 01/04/2023 Mental Status None recorded. Family History Relationship Description Onset Age of this Age Resolved Age Notes LastModified by Organization Details LastModified Time Mother Cerebrovascu lar accident [email or web address] Not available 17:54:19 Mother Type 2 diabetes mellitus [email or web address] Not available 11/01 17:54:50 Father Myocardial infarction age 62 [email or web address] Not available 11/02/2023 17:55:36 Father Malignant neoplasm of colon Not available 09/04 12:10:24 Medical History Condition Response High Cholesterol Y Heart Problems Y Hypertension Y Gynecological HistoryNo gynecological history recorded. Obstetrics History GPAL:G 0 P 0 0 0 0 Immunizations Vaccine Type Date Status Note Provider Nam e and Address Organization Details Recorded Time Influenza, adjuvanted, trivalent, PF 5 completed [facility] 03/13/2025 11:28:30 Influenza, split virus, quadrivalent, PF 4 completed AMISHA GUERRA, [address], [address] [place] [address], [facility] 04/19/2024 12:39:02 COVID-19, mRNA, LNP-S, PF, 50 mcg/0.5 mL 3 completed AMISHA GUERRA, [place] [address], [facility] 06/05/2024 15:08:09 COVID-19, mRNA, LNP-S, PF, 100 mcg/0.5mL dose or 50 mcg/0.25mL dose 1 completed AMISHA GUERRA, [address], [address] [place] [address], [facility] 03/13/2025 10:46:13 COVID-19, mRNA, LNP-S, PF, 100 mcg/0.5mL dose or 50 mcg/0.25mL dose 1 completed AMISHA GUERRA, [place] [address], [facility] 03/13/2025 10:46:14 COVID-19, mRNA, LNP-S, PF, 100 mcg/0.5mL dose or 50 mcg/0.25mL dose 1 completed AMISHA GUERRA[address] [address], [facility] 03/13/2025 10:46:14 COVID-19, mRNA, LNP-S, bivalent, PF, 50 mcg/0.5 mL or 25mcg/0.25 mL dose 2 completed AMISHA GUERRA, [address], [address], [facility] 10/04/2022 07:54:30 Tdap 1 completed AMISHA GUERRA, [address], [address], [facility] 10/04/2022 07:54:30 Pneumococcal conjugate PCV 13 7 completed AMISHA GUERRA, [address], [address], [facility] 03/13/2025 10:46:14 Influenza, high-dose, trivalent, PF 9 completed AMISHA GUERRA, [address], [address], [facility] 10/04/2022 07:54:30 Influenza, split virus, trivalent, preservative 0 completed AMISHA GUERRA, [address], [address], [facility] 10/04/2022 07:54:30 Influenza, split virus, trivalent, preservative 2 completed AMISHA GUERRA, [address], [address], [facility] 10/04/2022 07:54:30 Influenza, split virus, trivalent, preservative 4 completed AMISHA GUERRA, [address], [address], [facility] 10/04/2022 07:54:30 Influenza, split virus, trivalent, PF 5 completed AMISHA GUERRA, [address], [address], [facility] 10/04/2022 07:54:30 Hep B, adult 4 completed AMISHA GUERRA, [address], [address], [facility] 10/04/2022 07:54:30 Hep B, adult 3 completed AMISHA GUERRA, [address], [address], [facility] 10/04/2022 07:54:30 Hep B, adult 3 vandana GUERRA, [address], [address], [facility] 10/04/2022 07:54:30 Hep A, adult 4 vandana GUERRA, [address], [address], [facility] 10/04/2022 07:54:30 Hep A, adult 1 vandana GUERRA, [address], [address], [facility] 03/13/2025 10:46:14 Influenza, split virus, quadrivalent, PF 1 vandana GUERRA, [address], [address], [facility] 03/13/2025 10:46:14 Past Encounters Encounter ID Performer Location Encounter Start Date Encounter Closed Date Diagnosis/Indication Diagnosis SNOMED-CT Code Diagnosis ICD10 Code Diagnosis IMO Codes Diagnosis Note [id number] CEDRIC GARCIA [facility] ([facility]) [address] [place] [id number] 09/27/2022 15:55:15 09/27/2022 20:01:04 Adult health examination 084123884 Z00.00 Screening for malignant neoplasm of colon 664780590 Z12.11 Morbid obesity 870033148 E66.01 Discussed diet and exercise. Blood coag ulation disorder 76839254 D68.318 Xarelto for A-fib. Chronic at rial fibrillation 364572824 I48.20 [id number] Curry Simmons MD [facility] ([facility]) [address] [place] [id number] 12/19/2022 10:19:42 12/19/2022 19:51:58 Allergic rhinitis 79477589 J30.9 Exam is more consistent with allergies. We will add loratadine . The patient was instructed to increase her Flonase to 2 sprays each nostril daily. [id number] CEDRIC GARCIA [facility] ([facility]) [address] [place] [id number] 01/04/2023 10:14:46 02/22/2023 12:05:53 Atrial fibrillation 59201530 I48.91 Hyperglycemia 76951792 R 73.9 Asthma 580272713 J45.90 [id number] Curry Simmons MD [facility] ([facility]) [address] [place] [id number] 01/24/2023 10:39:16 01/24/2023 11:19:40 Bronchitis 07645706 J40 Today's exam concerned about bronchitis and likely will need an antibiotic and steroid to help manage her symptoms and disease. Allergic rhinitis 973282 04 J30.9 Patient likely still has some underlying allergies but the loratadine does not seem to be effective so we will transition to Teresa. [id number] CEDRIC GARCIA [facility] ([facility]) [address] [place] [id number] 03/14/2023 15:31:54 03/14/2023 17:41:50 Atrial fibrillation 49490816 I48.91 She has an appt with Dr. Matamoros on 03/27. Essential hypertension 43411886 I10 Swelling of lower leg 44 8640019 R22.42 Intermitte nt confusion 708016975 R41.0 Adult heal th examination 759028812 Z00.00 Patient says she notices she doesn't have any outside activities . Chronic ki dney disease 149608463 N18.30 Most recent GFR 64. Angina pectoris 21835134 0 I20.9 2 recent ER visits for this, follow-up scheduled with Dr. Matamoros in 2 weeks. Chronic co ngestive heart failure 80298029 I50.9 Lower extremity swelling today. Left worse than right. [id number] AMISHA GUERRA [employer] [facility] ([facility]) [address] [place] [id number] 03/27/2023 11:02:08 03/27/2023 15:42:31 [id number] AMISHA GUERRA [employer] [facility] ([facility]) [address] [place] [id number] 06/15/2023 13:28:36 06/16/2023 09:58:10 Memory impairment 232971143 R41.3 Essential tremor 7626002 09 G25.0 Long-term drug therapy 191928382 Z79.446 [id number] RANDY ELIAS PA-C [facility] ([facility]) [address] [place] [id number] 10/06/2023 09:46:56 10/06/2023 11:30:10 Seborrheic dermatitis 97236162 L21.9 Parkinson's disease 4904 9000 G20.A1 Acute otitis externa 302 65652 H60.509 Acute sinusitis 54487343 J01.90 [id number] CEDRIC GARCIA [facility] ([facility]) [address] [place] [id number] 10/17/2023 14:44:58 10/17/2023 17:46:25 Parkinson's disease 50545541 G20.A1 She has been seeing a neurologis t in [place] but are planning on transferri her records up here for further care. Pain of ear 387258895 H9 2.09 Atrial fibrillation 4943 [address]48[address] Matamoros. Seborrheic dermatitis 50 960355 L21.9 Shampoos and creams have not been helpful. Hyperglycemia 98924145 R 73.9 Morbid obesity 006491795 E66.01 Discussed diet and exercise. Congestive heart failure 89125745 I50.[address] Matamoros cardiology . Chronic ki dney disease stage 3B 495057411 N18.32 Monitor CMP today. Blood coag ulation disorder 59648430 D68.318 Xarelto for A-fib. Hyperlipidemia 54376252 E78.5 Continue atorvastat in. Essential hypertension 15276637 I10 Continue irbesartan . [id number] CEDRIC GARCIA [facility] ([facility]) [address] [place] [id number] 11/29/2023 13:20:23 11/29/2023 14:50:35 Acute upper respiratory infection 31426046 J06.9 Atrial fib rillation with rapid ventricular response 2088551803 38887 I48.91 Improving. Follow-up with cardiology next week. [id number] CEDRIC GARCIA [facility] ([facility]) [address] [place] [id number] 01/16/2024 14:33:50 01/16/2024 16:40:54 Essential tremor 538902793 G25.0 Upcoming appt with neurology. Essential hypertension 13990122 I10 Continue irbesartan . Generalize d anxiety disorder 68918696 F41.1 Hospital i npatient stay within past 30 days 5754741369 106 Z76.89 [id number] CEDRIC GARCIA [facility] ([facility]) [address] [place] [id number] 02/08/2024 14:25:27 02/09/2024 10:29:12 Acute urinary tract infection 758345145 N39.0 [id number] CEDRIC GARCIA [facility] ([facility]) [address] [place] [address]98[address]982 5 02/29/2024 11:45:42 02/29/2024 12:57:05 Benign hypertension 20112618 I10 Continue current medication . Recurrent urinary tract infection N39.0 Type 2 francisca betes mellitus without complication 353287647 E11.9 Memory impairment 922529 006 R41.3 Repeats herself frequently . [id number] CEDRIC GARCIA [facility] ([facility]) [address] [place] [address]53-867 5 03/18/2024 11:08:55 03/18/2024 11:51:04 Dizziness and giddiness 342624002 R42 Appt set up with PT to help with vertigo. Essential tremor 2650980 09 G25.0 Neurology is weaning her off of Carbidopa/ Levodopa. Vitamin D deficiency 347 93946 E55.9 Started vitamin to help with energy. Memory impairment 871117 006 R41.3 Repeats herself frequently . Recurrent urinary tract infection N39.0 Pain of le ft shoulder blade 882952081 M25.512 Significan t bruising to left shoulder following a fall a couple of days ago. Mild tenderness . Declines further work-up. [id number] CEDRIC GARCIA [facility] ([facility]) [address] [place] [address] 47609-505 5 04/19/2024 11:49:18 04/22/2024 10:44:32 Dementia 53261236 F03.93 Tremor 28999672 R25.1 Worsened since stopping Propanolol . Benign hypertension 1072 5009 I10 Continue current medication . Generalize d anxiety disorder 57320170 F41.1 Recurrent urinary tract infection N39.0 [id number] CEDRIC GARCIA [facility] ([facility]) [address] [place] [address]280[address]848 5 06/05/2024 13:42:43 06/05/2024 15:23:16 Essential hypertension 94399256 I10 Increasing losartan to twice a day this week. Dizziness 722120944 R42 Recent ER visit, meclizine given during the ER visit. Unsteady when walking 22 782421 R26.89 Recurrent falls 03526801 2 R29.6 Type 2 francisca betes mellitus 06436242 E11.22 A1C creeping up. Will work to get under control with diet and consider adding medication s. Parkinson's disease 4904 9000 G20.A1 Previously followed with neurologis t in [place], now seeing Dr. Kelsey. Congestive heart failure 38390303 I50.9 Follows with cardiology , appt coming up. Atrial fibrillation 4943 6004 I48.91 Follows with cardiology . Dr. Oliveira in [facility]. Home. Chronic ki dney disease stage 3 553735489 N18.32 Continued monitoring . Hyperlipidemia 73983217 E78.5 Continue atorvastat in. Dementia 13789391 F02.80 Follows with neurology, worsening. Morbid obesity 474259014 E66.01 Discussed diet and exercise. [id number] AMISHA GUERRA [facility] ([facility]) [address] [place], [place] [address] 06/25/2024 10:54:36 06/27/2024 09:46:56 [id number] IRENE DUDLEY [facility] ([facility]) [address] [place], [place] [address] 07/09/2024 10:15:58 07/09/2024 12:10:10 Dysuria 84104532 R30.0 Discussed to take antibiotic as prescribed [...] concernsPa tient verbalized understand ing of plan. [id number] AMISHA GU[facility]RA [facility] ([facility]) [address] [place], [place] [address] 5 08/12/2024 14:20:52 08/12/2024 15:19:56 Cough 37023431 R05.9 Antibiotic s prescribed today to cover for bronchitis . Acute otitis externa 302 70817 H60.049 [id number] AMISHA [facility]RA [facility] ([facility]) [address] [place] [address] 86314-831 5 09/04/2024 11:08:03 09/04/2024 12:44:13 Benign hypertension 16984728 I10 Continue current medication . Benign ess ential hypertension 2926997 I10 Losartan up to twice a day. Essential tremor 4284079 09 G25.0 Neurology appt coming up in September. Uncomplica megan moderate persistent asthma 898251684 J45.40 7608846 [id number] JOSIE MEREDITH [facility] ([facility]) [address] [place] [address]-652 5 09/07/2024 10:56:35 09/07/2024 12:02:24 [id number] AM[facility]HA [facility] ([facility]) [address] [place] [address] 77615-370 5 10/07/2024 14:46:34 10/08/2024 10:08:21 Chronic kidney disease stage 3B 533672215 N18.32 [id number] Monitor CMP today. [id number] IR[facility] DUDLEY [facility] ([facility]) [address] [place] [address]448-506 5 10/29/2024 13:51:59 10/29/2024 15:50:00 Dysuria 40065330 R30.0 71612 Discussed to take antibiotic as prescribed until [...] verbalized understand ing of plan. Essential hypertension 38603373 I10 29915 Advised to monitor BP bid. Notify PCP with readings. Advised patient to present to ER with any worsening of ear ringing/he adache/con fusion. [id number] AM[facility]HA [facility] ([facility]) [address] [place] [address] 46[address]-666 5 12/10/2024 09:51:51 12/10/2024 11:23:15 Benign hypertension 92908968 I10 Continue current medication . Type 2 francisca betes mellitus 49525669 E11.22 A1C creeping up. Will work to get under control with diet and consider adding medication s. Parkinson's disease 4904 9000 G20.A1 Previously followed with neurologis t in [place], now seeing Dr. Kelsey. [id number] CEDRIC GARCIA [facility] ([facility]) [address] [place] [address] 03/13/2025 09:43:59 03/13/2025 11:30:48 Benign hypertension 24250592 I10 Continue current medication . Type 2 francisca betes mellitus 20729138 E11.22 A1C creeping up. Will check A1C today. 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 7712441072 33344 M1A.00X0 922784546 Administra tion of influenza vaccine 11394915 Z23 Nasal congestion 7682976 0 R09.81 81964 Recurrent urinary tract infection 723038376 N39.0 986926 General ex amination of patient 613791865 Z00.00 [id number] Health Concerns Section Related Observation LastModified by Organization Detai ls LastModified Time None Recorded Concern Status LastModified by Organization Details LastModified Time None Recorded Advance Directives Directive None Recorded Payers Insurance Date Sequence Insurance Name Policy Number Policy May Covered Member ID May Member ID Guarantor Name 03/13/2025 1 [facility] (MEDICARE REPLACEMENT/A DVANTAGE - PPO) [id number] Kadi Hernandez [id number] Kadi Hernandez Notes Date Note Type Note [...] BP reading noted on exam. CEDRIC LOPEZ [address] [place] [address], [phone], [facility] 10/29/2024 15:36:36 12/10/2024 text/html Hypertension IM/FMReported by PatientHPIFor severity, patient reportsstage 2 (>140/>90 mmhg). For quality, patient reportshere for check-up. For duration, patient reportshtn present for ___ years. For alleviating factors, patient reportsmedication. For self care, patient reportsnon-smoker. For associated symptoms, patient reportsno shortness of breathandno chest pain. CEDRIC GARCIA [address] [place], [address], [facility] 12/10/2024 11:18:58 03/13/2025 text/html [...] of breathandno chest pain. CEDRIC GARCIA [address] [place], [address], [facility], LNadineLSonido. 03/13/2025 11:03:32 OBGyn Episode No OBEpisode recorded.
--- OUTSIDE RECORDS SUMMARY | 2025-04-05 22:36 | XMS_ITS | Clinical Summary ---
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
--- OUTSIDE RECORDS SUMMARY | 2025-04-05 22:37 | XMS_ITS | Encounter Summary ---
Author Organization [facility] Address [address] [place] [address] Care Team Providers Care Client Sales And Service Officer Name Role Phone Unavailable Primary Care Provider Unavailabl e Encounter Details Date Type Department Care Team (Late st Contact Info) Description 07/24/2003 Outpatient Historical [facility] [address] [place] [phone] Benny Asif DO [address] [place] [phone] ABN INVOLUN MOVEMENT NEC (Primary Dx); HEADACHE; Pure hypercholesterolem; CONJUNCTIVITIS NOS Social History Tobacco Use Types Packs/Day Years Used Date Smoking Tobacco: Never Assessed Comments Unknown Sex and Gender Information Value Date Recorded Sex Assigned at Not on file 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
--- OUTSIDE RECORDS SUMMARY | 2025-04-05 22:37 | XMS_ITS | Patient Health Record ---
Author Organization [facility] Address [address] [place] [address] Care Team Providers Care Instructor [employer] Name Role Phone Bonnie Fleming APRN Primary Care Provider Unavaila Clarissa Guerrier Unavailable [phone] Rafa Gomez Unavailable [phone] Aydee Gutierrez Unavailable [phone] Allergies Allergen (clinical drug ingredient) Drug/Non Drug Allergy documented on EMR Reaction Allergy Type Onset Date Status Information temporarily unavailable Lisinopril Unknown Drug Allergy Active Results Component Value Reference Range Notes UA Without Micro-Auto, [place] - [address] Reviewed date:12/04/2024 10:40:53 AM Interpretation: Performing Lab: Notes/Report: Glucose 0 Bili 0 Ketones 0 Sp [place] 1.030 Blood 0 pH 6.0 Protein +- Urobili 0 Nitrites 0 Leukocytes 1+ UA Without Micro-Auto, [place] - [address] Reviewed date:01/01/2025 10:48:11 AM Interpretation: Performing Lab: Notes/Report: Glucose 0 Bili 1+ Ketones 0 Sp [place] 1.030 Blood 0 pH 5.5 Protein +- Urobili 0 Nitrites 0 Leukocytes +- Reason For Referral Reason frequent UTI Diagnosis 1 Frequent UTI (N39.0) Referral Organization [facility] Referring Provider First Name Clarissa Referring Provider Last Name Dayanna Referring Provider Speciality Nurse Prac titioner Referred Provider [facility] Referred Provider Specialty Urology General Notes Nguyen Olguin 10/23 04:09:42 PM >[place] at Dr. Gomez's office verified referral has been received. Patient has not been called to set up.Clau Crystal 11/12/2024 03:58:55 PM >Voice mail was left on 11/12/24 requesting patient return call to Dr. Gomez's office to set up appt, Nguyen Olguin LPN 11/20/2024 11:46:21 AM CDT > LVM at [phone] Gomez's office to be set up for freuquent UTI., Nguyen Olguin HEBER 11/20/2024 11:46:53 AM CDT > No answer at [phone] and unable to leave a message.Clau Crystal CELLARS SUPERVISOR 11/21/2024 03:22:44 PM CDT > Has appt 12/04/24 Referral Priority Routine Reason Frequent UTI's Diagnosis 1 Frequent UTI (N39.0) Referral Organization [facility] Referring Provider First Name Clarissa Referring Provider Last Name Dayanna Referring Provider Speciality Nurse Prac kat Referred Organization [facility] Referred Provider Rafa Gomez Referred Address [address],[place], [place],[address], Referred Provider Specialty Urology General Notes Mai Guzmán 12/2024 11:33:28 AM >Lvm to schedule screenplay writer appt Referral Priority Routine Medications Medication SIG [...] hrs Not-Takin g Vitamin D3 1.25 MG (88669 UT) Capsule 1 capsule Orally weekly 11/06/2024 Not-Taking Donepezil HCl 10 MG Tablet 1 tablet at b edtime Orally Once a day Active Losartan Potassium 50 MG Tablet 1 tablet Orally twice a day 11/06/2024 Active Cholecalciferol 1.25 MG (87606 UT) Capsule 1 capsule Orally Activ e [...] Problem Status W/U Status Risk Notes Problem Information temporarily unavailable Hypercalcemia (E83.52) Active confirmed Problem Information temporarily unavailable Essential hypertension (I10) Active confirmed Problem Information temporarily unavailable Chronic kidney disease (N18.9) Active confirmed Problem Information temporarily unavailable Atrophic vaginitis (N95.2) Active confirmed Problem Information temporarily unavailable History of hematuria (Z87.448) Active confirmed Problem Information temporarily unavailable Hyperparathyroidi sm, 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 confirmed Problem Information temporarily unavailable Chronic kidney disease, stage 3b (N18.32) Active confirmed Problem Information temporarily unavailable Controlled gout (M10.9) Active confirmed Vital Signs [...] N/A Encounters Encounter Location Date Provider Diagnosis [facility] [address] [place] [address] 06/17/2024 Clarissa Alan Chronic kidney disease, stage 3b N18.32 ; Essential hypertension I10 ; Controlled gout M10.9 ; Hypercalcemia E83.52 and Persistent proteinuria R80.1 [facility] [address] [place] [address] 10/15/2024 Clarissa Alan Chronic kidney disease, stage 3b N18.32 ; Essential hypertension I10 ; Controlled gout M10.9 ; Hypercalcemia E83.52 ; Persistent proteinuria R80.1 and Hyperparathyroidism, 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 [facility] [address] [place] [address] [address] [place] [address] 12/04/2024 Aydee Gutierrez Recurrent UTI N39.0 ; Chronic kidney disease N18.9 and Atrophic vaginitis N95.2 [facility] [address] [place] [address] [place] [address] 01/01/2025 Aydee Gutierrez Recurrent UTI N39.0 ; Atrophic vaginitis N95.2 and History of hematuria Z87.448 [facility] [address] [place] [address] 02/17/2025 Clarissa Alan Chronic kidney disease, stage 3b N18.32 ; Essential hypertension I10 ; Controlled gout M10.9 ; Hypercalcemia E83.52 ; Persistent proteinuria R80.1 and Hyperparathyroidism, 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 [facility] [address] [place] [address] [address] [place] [address] 10/20/2024 Clarissa Alan [facility] [address] [place] [address] [address] [place] [address] 11/07/2024 Clarissa Alan [facility] [address] [place] [address] [address] [place] [address] 11/12/2024 Rafa [facility] [address] [place] [address] [address] [place] [address] 12/04/2024 Aydee Gutierrez [facility] [address] [place] [address] [address] [place] [address] 12/06/2024 Rafa [facility] [address] [place] [address] [address] [place] [address] 02/10/2025 Clarissa Chapmandwayne [facility] [address] [place] [address] [place] [address] 2025 Clarissa Alan Chronic kidney disease, stage 3b N18.32 ; Essential hypertension I10 ; Controlled gout M10.9 and Hyperparathyroidism, 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 2025 Chronic kidney disease, stage 3b (ICD-10 - N18.32) 02/17/2025 Essential hypertension (ICD-10 - I10) High [...] UTI. 2025 Essential hypertension (ICD-10 - I10) 10/15/2024 Essential hypertension (ICD-10 - I10) High [...] to urology appointment for recurrent UTIs. 2025 Controlled gout (ICD-10 - M10.9) 02/17/2025 Hypercalcemia (ICD-10 - E83.52) Chronic kidney [...] proteinuria likely due to recurrent UTIs. 10/15/2024 Hypercalcemia (ICD-10 - E83.52) Chronic kidney disease stage IIIb is stable. CKD likley d/t HTN, Age. Hypertension is controlled in clinic on current regimen. Gout is being treated with allopurinol. No hematuria or proteinuria on current UA and previous was likely due to UTI. PTH and vitamin D are at goal for CKD. Patient agreeable to urology appointment for recurrent UTIs. 06/17/2024 Hypercalcemia (ICD-10 - E83.52) Chronic kidney disease stage IIIb based on current labs. Previous labs fluctuate between stage II-IIIa CKD. CKD likley d/t HTN, Age. Hypertension is controlled in clinic on current regimen. Gout is being treated with allopurinol. Hematuria and proteinuria likely due to recurrent UTIs. 2025 Hyperparathyroid ism, secondary renal [...] recently finished an antibiotic for UTI. 02/17/2025 Hyperparathyroid ism, secondary renal (ICD-10 - [...] Follow-up in 4 months with labs at [facility] in [place] Chronic kidney disease stage IIIb based on [...] Follow-up in 4-5 months with labs at [facility] in [place] Chronic kidney disease stage IIIb is stable. [...] Follow-up in 4 months with labs at [facility] in [place] Chronic kidney disease stage IIIb is slightly above baseline. CKD likley d/t HTN, Age. Hypertension is controlled. Gout is controlled with allopurinol. PTH is at goal for CKD. Following with urology for freqent UTIs, currently with hematuria, proteinuria and few bacteria, but recently finished an antibiotic for UTI. Plan Of Treatment Pending Test Test Name Order Date Albumin 25696 2025 Basic Metabolic Panel (BMP) 03178 2024 Hemoglobin 89041 2025 Magnesium (B) 34640 2025 Phosphorus (B) 28825 2025 Uric Acid (B) 27648 2025 Microalbumin (U) Random 20369 2025 Creatinine (U) 22513 2025 UA Reflex Micro, Reflex Cult 94190, 8101 5, 52978 2025 PTH Intact 11036 2025 Future Test Test Name Order Date Albumin 00662 10/12/2024 Basic Metabolic Panel (BMP) 68210 2024 Hemoglobin 94881 10/12/2024 Magnesium (B) 69237 10/12/2024 Phosphorus (B) 44380 10/12/2024 Protein (U) Random 79886 10/12/2024 Uric Acid (B) 77935 10/12/2024 Vitamin D Total (B) 39148 10/12/2024 Microalbumin (U) Random 24222 10/12/2024 Creatinine (U) 41189 10/12/2024 UA Reflex Micro, Reflex Cult 42512, 8101 5, 13376 10/12/2024 PTH Intact 14766 10/12/2024 Albumin 84102 06/06/2025 Basic Metabolic Panel (BMP) 79284 2025 Hemoglobin 89971 06/06/2025 Magnesium (B) 26281 06/06/2025 Phosphorus (B) 80421 06/06/2025 Protein (U) Random 64330 06/06/2025 Uric Acid (B) 22118 06/06/2025 Microalbumin (U) Random 19340 06/06/2025 Creatinine (U) 45871 06/06/2025 UA Reflex Micro, Reflex Cult 36706, 8101 5, 21341 06/06/2025 PTH Intact 70336 06/06/2025 Next Appt Details Provider Name:Humberto George, 06/18/2025 01:40:00 PM, [address] [place] [address] , [address], [place], [address], Provider Name:Aydee Ortiz, 07/03/2025 11:00:00 AM, [address], [place], [address], Insurance Providers Payer Name Payer Address Payer Phone Subscriber Number Group Number Insured Name Patient Relationship to Insured Coverage Start Date Coverage End Date [facility] Medicare Advantage PPO [address] [address] [place] [address] [phone] [id number] GRAEME MCKEON Self - patient is the insured Medical (General) History Medical History History ICD Code High blood pressure Skin Cancer Asthma A-Fib High cholesterol Gout Depression Anxiety Season allergies Surgical History Surgery Date(Month/Year) Hysterectomy Hospitalization History Reason Date(Month/Year) See surgical hx
--- OUTSIDE RECORDS SUMMARY | 2025-04-05 22:37 | XMS_ITS | Continuity of Care Document ---
Author Organization IAN Lopez [facility] Alec Spicer, [facility] ([facility]) Address [address] [place] [address] Care Team Providers Care Police Captain Name Role Phone AMISHA GUERRA Primary Care Provider NATALIE Erazo Referring Provider [phone] Assessment Encounter Date Assessment Date Assessment LastModified [...] A1C/hemog lobin total, QN, blood 2024 025 [facility], [address], [address], [place], [address], 03/13/2025 12:46:27 CMP, serum or plasma 2024 025 [facility], [address], [address], [place], [address], 03/13/2025 13:00:06 CBC 2024 025 [facility], [address], [address], [place], [address], 03/13/2025 12:05:17 urinalysi s, complete 2024 025 [facility], [address], [address], [place], [address], 03/13/2025 13:43:59 culture, urine 2024 025 ALLEN [facility], [address] [place] [address], [address] [place], [address], 03/14/2025 21:15:29 Referral None recorded. Procedures None recorded. Surgeries None recorded. Imaging None recorded. Medication Orders Claritin 10 mg tablet 2024 025 [facility] [place], [address] [place] [address], [id number], 03/14/2025 13:48:37 allopurin ol 300 mg tablet 2024 025 [facility] [place], [address] [place] [address], [id number], 03/14/2025 13:48:37 Patient TargetsNo targets recorded. Patient Instructions Encounter Date Encounter Id Patient Instructions Last Modified By Organization Details Last Modified Time 03/13/2025 [id number] preventing falls : care instructions Not available 03/13/2025 11:03:25 well visit, over 65: care instructions Not available 03/13/2025 11:03:25 Call or return for questions or concerns. Not available 03/13/2025 10:50:43 Reason for Referral None Reported. Results Created Date Observation Date Name Description Value Unit Range Abnormal Flag Note LastModifiedBy Organization Detail LastModifiedTime 03/13/2003/13/2025 CBC WBC 7.9 x10 4.0-10 .5 Not Available [facility] [address], [place], [address], 03/13/2025 12:05:17 03/13/2003/13/2025 CBC RBC 4.27 x10 3.50-5 .50 Not Available [facility] [address], [place], [address], 03/13/2025 12:05:17 03/13/2003/13/2025 CBC HGB 12.6 g/dL 12.0-1 6.0 Not Available [facility] [address], [place], [address], 03/13/2025 12:05:17 03/13/2003/13/2025 CBC HCT 39.3 % 37.0-4 7.0 Not Available [facility] [address] [facility] [address] [facility] 1, [place], [address], 03/13/2025 12:05:17 03/13/2003/13/2025 CBC MCV 92.0 fL 80.0-9 9.9 Not Available [facility] [address] [facility] [address] [facility] 1, [place], [address], 03/13/2025 12:05:17 03/13/20 25 03/13/2025 CBC MCH 29.5 pg 27.0-3 2.0 Not Available [facility] [address] [facility] [address] [facility] 1, [place], [address], 03/13/2025 12:05:17 03/13/2003/13/2025 CBC MCHC 32.0 g/dL 32.0-3 6.0 Not Available [facility] [address] [facility] 1, [place], [address], 03/13/2025 12:05:17 03/13/2003/13/2025 CBC RDW 14.6 % 11.5-1 4.5 high Not Available [facility] [address] [facility] [address] [facility] 1, [place], [address], 03/13/2025 12:05:17 03/13/2003/13/2025 CBC plt 255.9 x10 140.0- 451.0 Not Available [facility] [address] [place] [address] [address], [place], [address], 03/13/2025 12:05:17 03/13/2003/13/2025 CBC lymphocytes % 24.2 % 20.0-5 0.0 Not Available [facility] [address] [facility] [address], [place], [address], 03/13/2025 12:05:17 03/13/2003/13/2025 CBC granulcytes % 60.0 % 30.0-7 0.0 Not Available [facility] [address] [address], [place], [address], 03/13/2025 12:05:17 03/13/2003/13/2025 CBC monocytes % 10.3 % 2.0-16 .0 Not Available [facility] [address] [place] [address] [address], [place], [address], 03/13/2025 12:05:17 03/13/2003/13/2025 CBC granulcytes# 4.8 x10 Not Anabelle ilable [facility] [address] [place] [address] [address], [place], [address], 03/13/2025 12:05:17 03/13/2003/13/2025 CBC lymphocytes # 1.9 x10 Not Available [facility] [address] [place] [address] [facility], [place], [address], 03/13/2025 12:05:17 03/13/20 25 03/13/2025 CBC monocytes # 0.8 x10 Not Avai lable [facility] [address] [facility] [address] [facility] 1, [place], [address], 03/13/2025 12:05:17 03/13/2003/13/2025 HBA1C hemaglobin A1C 6.3 4.2-6. 5 Not Available [facility] [address] [facility], [place], [address], 03/13/2025 12:46:27 03/13/2003/13/2025 CMP (FEMA LE) glucose 198.0 mg/dL 60.0-9 9.0 high Not Available [facility] [address] [facility], [place], [address], 03/13/2025 13:00:06 03/13/20 25 03/13/2025 CMP (FEMA LE) BUN (blood urea nitrogen) 21.0 mg/dL 10.0-2 6.0 Not Available [facility] [address] [facility], [place], [address], 03/13/2025 13:00:06 03/13/20 25 03/13/2025 CMP (FEMA LE) creatinine (serum) 1.5 mg/dL 0.4-1. 5 Not Available [facility] [address] [facility], [place], [address], 03/13/2025 13:00:06 03/13/2003/13/2025 CMP (FEMA LE) BUN/creatini ne ratio 14.00 ratio Not Available [facility] [address] [facility], [place], [address], 03/13/2025 13:00:06 03/13/20 25 03/13/2025 CMP (FEMA LE) eGFR calculated 35.5 Not Available [facility] [address] [facility], [place], [address], 03/13/2025 13:00:06 03/13/2003/13/2025 CMP (FEMA LE) total protein 8.5 g/dL 6.0-8. 5 Not Available [facility] [address] [facility], [place], [address], 03/13/2025 13:00:06 03/13/2003/13/2025 CMP (FEMA LE) total bilirubin 0.8 mg/dL 0.2-1. 3 Not Available [facility] [address] [place] [facility], [place], [address], 03/13/2025 13:00:06 03/13/2003/13/2025 CMP (FEMA LE) albumin 4.3 g/dL 3.5-5. 5 Not Available [facility] [address] [facility] 1, [place], [address], 03/13/2025 13:00:06 03/13/2003/13/2025 CMP (FEMA LE) globulin 4.2 calc Not Available [facility] [address] [facility] 1, [place], [address], 03/13/2025 13:00:06 03/13/2003/13/2025 CMP (FEMA LE) AST (SGOT) 86.0 U/L 0.0-46 .0 high Not Available [facility] [address] [facility] 1, [place], [address], 03/13/2025 13:00:06 03/13/2003/13/2025 CMP (FEMA LE) altv (SGPT) 63.0 U/L 13.0-6 9.0 normal Not Available [facility] [address] [facility], [place], [address], 03/13/2025 13:00:06 03/13/2003/13/2025 CMP (FEMA LE) A/G ratio 1.0 ratio Not Available [facility] [address] [facility] [address], [place], [address], 03/13/2025 13:00:06 03/13/2003/13/2025 CMP (FEMA LE) ALP phos 64.0 U/L 30.0-1 40.0 normal Not Available [facility] [address] [facility] [address], [place], [address], 03/13/2025 13:00:06 03/13/2003/13/2025 CMP (FEMA LE) calcium 10.7 mg/dL 8.4-10 .5 high Not Available [facility] [address] [facility] [address], [place], [address], 03/13/2025 13:00:06 03/13/2003/13/2025 CMP (FEMA LE) sodium 141.0 mmol/ L 136.0- 145.0 Not Available [facility] [address] [address], [place], [address], 03/13/2025 13:00:06 03/13/2003/13/2025 CMP (FEMA LE) potassium 4.4 mmol/ L 3.5-5. 1 Not Available [facility] [address] [facility] 1, [place], [address], 03/13/2025 13:00:06 03/13/2003/13/2025 CMP (FEMA LE) chloride 101.0 mmol/ L 98.0-1 10.0 normal Not Available [facility] [address] [facility], [place], [address], 03/13/2025 13:00:06 03/13/2003/13/2025 CMP (FEMA LE) C02 27.0 mmol/ L 22.0-3 1.0 Not Available [facility] [address] [facility] 1, [place], [address], 03/13/2025 13:00:06 03/13/20 25 03/13/2025 CMP (FEMA LE) anion gap 13.0 calc Not Available [facility] [address] [facility] [address] [facility] 1, [place], [address], 03/13/2025 13:00:06 03/13/2003/13/2025 CMP (FEMA LE) osmolality 298.9 calc Not Available [facility] [address] [facility] [address] [facility] 1, [place], [address], 03/13/2025 13:00:06 03/13/20 25 03/13/2025 URINA LYSIS WITH MICRO color DARK YELLOW Not Available [facility] [address] [facility] [address] [facility] 1, [place], [address], 03/13/2025 13:43:58 03/13/20 25 03/13/2025 URINA LYSIS WITH MICRO clarity CLOUDY Not Available [facility] [address] [facility] [address] [facility] 1, [place], [address], 03/13/2025 13:43:58 03/13/20 25 03/13/2025 URINA LYSIS WITH MICRO glu NEGATI VE Not Available [facility] [address] [facility] 1, [place], [address], 03/13/2025 13:43:58 03/13/20 25 03/13/2025 URINA LYSIS WITH MICRO bili NEGATI VE Not Available [facility] [address] [facility] [address] [facility] 1, [place], [address], 03/13/2025 13:43:58 03/13/20 25 03/13/2025 URINA LYSIS WITH MICRO ket TRACE Not Available [facility] [address] [facility] 1, [place], [address], 03/13/2025 13:43:58 03/13/2003/13/2025 URINA LYSIS WITH MICRO S.g 1.030 1.005- 1.025 high Not Available [facility] [address] [place] [address] [facility] 1, [place], [address], 03/13/2025 13:43:58 03/13/2003/13/2025 URINA LYSIS WITH MICRO pH 5.5 5.0-7. 0 Not Available [facility] [address] [place] [address] [facility] 1, [place], [address], 03/13/2025 13:43:58 03/13/2003/13/2025 URINA LYSIS WITH MICRO pro 1+ Not Available [facility] [address] [place] [address] [facility] 1, [place], [address], 03/13/2025 13:43:58 03/13/20 25 03/13/2025 URINA LYSIS WITH MICRO uro 0.2 E.U./D L Not Available [facility] Nisha k [facility] [address] [place] [address] [facility] 1, [place], [address], 03/13/2025 13:43:58 03/13/2003/13/2025 URINA LYSIS WITH MICRO nit NEGATI VE Not Available [facility] Nisha k [facility] [address] [place] [address] [facility] 1, [place], [address], 03/13/2025 13:43:58 03/13/2003/13/2025 URINA LYSIS WITH MICRO blo 3+ Not Available [facility] [address] [facility] [address] [facility] 1, [place], [address], 03/13/2025 13:43:58 03/13/20 25 03/13/2025 URINA LYSIS WITH MICRO noe TRACE Not Available [facility] [address] [place] [facility], [place], [address], 03/13/2025 13:43:58 03/13/20 25 03/13/2025 URINA LYSIS WITH MICRO WBC 8-10 Not Available [facility] [address] [place] [facility], [place], [address], 03/13/2025 13:43:58 03/13/20 25 03/13/2025 URINA LYSIS WITH MICRO RBC 30-40 Not Available [facility] [address] [facility] [address], [place], [address], 03/13/2025 13:43:58 03/13/20 25 03/13/2025 URINA LYSIS WITH MICRO epi cells 10-12 Not Available Miles Gonzalez [facility] [address] [facility] [address], [place], [address], 03/13/2025 13:43:58 03/13/20 25 03/13/2025 URINA LYSIS WITH MICRO bacteria 1+ MIXED FRANCISCO JAVIER Not Available [facility] Nisha k [facility] [address] [facility] [address], [place], [address], 03/13/2025 13:43:58 03/13/20 25 03/13/2025 URINA LYSIS WITH MICRO other NEGATI VE Not Available [facility] [address] [facility] [address], [place], [address], 03/13/2025 13:43:58 03/13/20 25 03/14/2025 CULTU RE, URINE , ROUTI NE culture, urine, routine SEE NOTE CULTU RE, URINE , ROUTI NE Micro Numbe r: [id number] Test Statu s: Final Speci men [...] Cultu re Trans port Tube. Not Available [facility] [address] [address], [place], [address], 03/14/2025 21:15:28 Result Notes None recorded. Problems Name Problem SNOMED Code Status Onset Date Resolution Date Notes Provider Name and Address Organization Details Recorded Time Benign essential hypertensio n 6607780 [facility] 4 12:42:58 Blood pressure above reference range 14549899 [facility] JEFFY LEY [facility] 5 14:52:36 Hypertrigly ceridemia 503992451 [facility] JEFFY LEY [facility] 5 14:52:36 Mycosis 6222562 [facility] 5 14:52:36 Dyslipidemi a 693266154 [facility] JEFFY LEY [facility] 5 14:52:36 Biliary colic 67125897 Active PHILIP BARDALES [facility] 4 12:43:08 Hypertensiv e disorder 54459498 Active AMISHA GUERRA, [address], [address], [facility] 5 10:48:16 Dizziness 788127645 Selina GUERRA, [address], [address], [facility] 5 10:48:16 Herpes zoster 3586381 [facility]Y [facility] 5 14:52:36 Bradycardia 65832737 [facility] 4 12:43:11 Atrial fibrillatio n 60770367 Active AMISHA GUERRA, [address], [address], [facility], LNadineL.C. 5 10:48:16 Coronary arterioscle rosis 99274557 Active [facility] 4 12:43:19 Dyspnea on exertion 48282637 Active EJFFY AHNOVER [facility] 5 14:52:36 Essential tremor 370834792 [facility] AMISHA GUERRA, [address], [address], [facility] 5 10:48:16 Palpitation s 09550826 [facility] JEFFY LEY [facility] 5 14:52:36 Gout 97954280 Active JEFFY LEY [facility] 5 14:52:36 Benign hypertensio n 90172659 Active [facility] 4 12:43:02 Asthenia 44777816 Active AMISHA GUERRA, [address], [address], [facility] 5 10:48:16 Metabolic encephalopa thy 86346025 Active JEFFY LEY [facility] 5 14:52:36 Urinary tract infectious disease 58991570 Active AMISHAMara GUERRA, [address], [address], [facility] 5 10:48:16 Lactic acidosis 27943120 Active JEFFY [facility] 5 14:52:36 Chest pain 84350184 Active AMISHA GUERRA, [address], [address], [facility] 5 10:48:16 Benign paroxysmal positional vertigo 394752575 Active AMISHA GUERRA, [address], [address], [facility] 5 10:48:16 Labyrinthit is 68057782 [facility] 5 14:52:36 Disturbance of consciousne ss 2876301 [facility] JEFFY [facility] 5 14:52:36 Vertigo 189435850 [facility] 14:52:36 Altered mental status 509213170 [facility] JEFFY [facility] 14:50:27 Hypertensiv e urgency 793843229 [facility] JEFFY [facility] 14:52:36 Amnesia 74190418 [facility] 14:52:36 Objective vertigo 89677092 [facility] 14:52:36 Reactive airway disease 500352174119 [facility] 14:52:36 Near syncope 420076828 Active AMISHA GUERRA, [address], [address] [place] [address] 5, [facility] 10:48:16 Sepsis 33161917 Active AMISHA GUERRA, [address], [address] [place] [address] 5, [facility] 10:44:32 Sprain of left ankle 1256330223196 9105 Active AMISHA GUERRA, [address], [address] [place] [address] 5, [facility] 10:46:10 Headache 33475887 Selina GUERRA, [address], [address] [place] [address] 5, [facility] 10:48:16 Acute urinary tract infection 094761303 Active AMISHA GUERRA, [address], [address] [place] [address] 5, [facility] 10:46:10 Acute labyrinthit is 7854764785025 03 Active AMISHA GUERRA, [address], [address] [place] [address] 5, [facility] 10:46:10 Adjustment disorder with anxious mood 20234511 Active AMISHA GUERRA, [address], [address] [place] [address] 5, [facility] 10:46:10 Anxiety 90903875 Active AMISHA GUERRA, [address], [address] [place] [address] 5, [facility] 08/05/202 5 10:46:10 Acute cystitis 71954444 Selina GUERRA, [address], [address], [facility] 5 10:46:10 Acute kidney injury 24840810 Selina GUERRA, [address], [address], [facility] 5 10:41:33 Hypomagnese elvira 457976133 Selina GUERRA, [address], [address], [facility] 5 10:41:33 Syncope 549825610 Selina GUERRA, [address], [address], [facility] 5 10:41:33 Syncope and collapse 413350250 Selina GUERRA, [address], [address], [facility] 5 10:41:33 Dizziness of unknown cause 533987797 Selina GUERRA, [address], [address], [facility] 5 10:41:33 Lactic acid level above reference range 1363138 Selina GUERRA, [address], [address], [facility] 5 10:41:33 History of cholecystec nader 324403897 Active 2019 JEFFY styles [facility] 5 14:52:36 Essential hypertensio n 77098954 Active 2023 [facility] 4 17:51:41 Cardiomegal y 6967853 Active 2023 mild [facility] 4 17:56:13 Atrial fibrillatio n with rapid ventricular response 3413524217708 09 Active 2023 AMISHA GUERRA, [address], [address] [place] [address] 5, [facility] 5 10:48:16 Type 2 diabetes mellitus 18271454 Active 2024 AMISHA GUERRA, [address], [address] [place] [address] 5, [facility] 5 19:26:52 Parkinson's disease 60555199 Active 2024 AMISHA GUERRA, [address], [address] [place] [address] 5, [facility] 5 19:28:20 Congestive heart failure 84526885 Active 2024 AMISHA GEURRA, [address], [address], [facility] 5 19:29:24 Chronic kidney disease stage 3 658778798 Active [address], [address], [facility] 5 19:32:28 Problem Notes None recorded. Procedures Surgical History Date Name Laterality Status Provider Name and Address Organization Details Recorded Time 01/24/20 25 plain X-ray of chest completed PHILIP JEFFY [facility] 01/24/2025 15:14:07 01/24/[address] of head completed PHILIP [facility] 01/24/2025 15:14:57 08/15/19 25 plain X-ray of chest completed [facility] 08/19/2024 09:37:52 04/21/[address] of head completed [facility] 04/24/2024 14:38:54 01/09/20 24 plain X-ray of chest completed [facility] 01/09/2024 18:48:47 01/09/[address] of head completed [facility] 01/09/2024 18:49:46 01/09/20 24 procedure on neck completed [facility] 01/09/2024 18:52:29 11/18/19 24 plain X-ray of chest completed [facility] 11/22/2023 19:57:57 11/02/19 24 plain X-ray of chest completed [facility] 11/02/2023 17:49:11 11/02/[address] of head completed [facility] 11/02/2023 17:50:27 07/29/19 24 plain X-ray of chest completed [facility] 08/01/2023 17:22:55 07/29/[address] of head completed [facility] 08/22/2023 17:24:25 07/28/19 24 plain X-ray of chest completed [facility] 08/22/2023 17:22:37 04/21/20 23 plain X-ray of chest completed [facility] 05/17/2023 12:28:28 03/27/20 23 [facility] 16:10:21 03/27/20 23 Doppler ultrasonography of venous structure of limb completed [facility]c 03/28/2023 16:11:27 [facility]/12/[facility]24 14:48:54 Imaging Results None recorded. Procedure Notes None recorded. Medical Equipment None Reported. Allergies Allergen ID Allergen Name Allergen Category Reaction Reaction Severity Criticality Documentation Date Start Date Code Code System Note Provider Name and Address Organization Details Recorded Time 08977 lisinopri l medicatio n Not available Not available Not available 11/29/20232024 16138 RxNorm AMISHA GUERRA, [address], [address], [facility], Alec 10:48:03 Medications Name Sig Start Date [...] acin 0.3 %-dexamet hasone 0.1 % ear drops,chalres pension INSTILL FOUR DROPS TWICE DAILY for [...] t Available atorvasta tin daily 12/19 completed 77621; Recorded 04/14/20 12:02PM by Philip Bardales CMT [...] Updated DateTime 5 157.48 cm 41.2 kg/m2 215649. 28 g 95 % 82 /min 22 /min 138/68 mm[Hg] PHILIP JEFFY [facility] 5 10:22:27 Social History Question Answer Notes LastModified by [employer] Details LastModified Time Tobacco Smoking Status Never Smoker [facility] 01/04/2023 12:21:22 What Was The Date Of Your Most Recent Tobacco Screening? 10/29/2024 [email or web address] Information not available 10/29/2024 Sex: Unknown Functional Status Question Answer Note LastModified by [employer] Details LastModified Time Do you use any illicit or recreational drugs? No [email or web address] Information not available 01/04/2023 What is your level of alcohol consumption? None [email or web address] Information not available 01/04/2023 Mental Status None recorded. Family History Relationship Description Onset Age of this Age Resolved Age Notes LastModified by Organization Details LastModified Time Mother Cerebrovascu lar accident [email or web address] Not available 17:54:19 Mother Type 2 diabetes mellitus [email or web address] Not available 11/01 17:54:50 Father Myocardial infarction age 62 Not available 11/02/2023 17:55:36 Father Malignant neoplasm of colon [email or web address] Not available 09/04 12:10:24 Medical History Condition Response High Cholesterol Y Heart Problems Y Hypertension Y Gynecological HistoryNo gynecological history recorded. Obstetrics History GPAL:G 0 P 0 0 0 0 Immunizations Vaccine Type Date Status Note Provider Nam e and Address Organization Details Recorded Time Influenza, adjuvanted, trivalent, PF 5 completed PHILIP styles, [facility] [facility] 03/13/2025 11:28:30 Influenza, split virus, quadrivalent, PF 4 completed AMISHA GUERRA, [address], [address], [facility] 04/19/2024 12:39:02 COVID-19, mRNA, LNP-S, PF, 50 mcg/0.5 mL 3 completed AMISHA GUERRA, [address], [address], [facility] 06/05/2024 15:08:09 COVID-19, mRNA, LNP-S, PF, 100 mcg/0.5mL dose or 50 mcg/0.25mL dose 1 completed AMISHA GUERRA, [address], [address], [facility] 03/13/2025 10:46:13 COVID-19, mRNA, LNP-S, PF, 100 mcg/0.5mL dose or 50 mcg/0.25mL dose 1 completed AMISHA GUERRA, [address], [address], [facility] 03/13/2025 10:46:14 COVID-19, mRNA, LNP-S, PF, 100 mcg/0.5mL dose or 50 mcg/0.25mL dose 1 completed AMISHA GUERRA [address], [address], [facility] 03/13/2025 10:46:14 COVID-19, mRNA, LNP-S, bivalent, PF, 50 mcg/0.5 mL or 25mcg/0.25 mL dose 2 completed AMISHA GUERRA, [facility] [address] [place], [address], [facility] 10/04/2022 07:54:30 Tdap 1 completed AMISHA GUERRA, [facility] [address] [place] [address], [phone], [facility] 10/04/2022 07:54:30 Pneumococcal conjugate PCV 13 7 completed AMISHA GUERRA, [address], [address], [facility] 03/13/2025 10:46:14 Influenza, high-dose, trivalent, PF 9 completed AMISHA GUERRA, [address], [address], [facility] 10/04/2022 07:54:30 Influenza, split virus, trivalent, preservative 0 completed AMISHA GUERRA, [address], [address], [facility] 10/04/2022 07:54:30 Influenza, split virus, trivalent, preservative 2 completed AMISHA GUERRA, [address], [address], [facility] 10/04/2022 07:54:30 Influenza, split virus, trivalent, preservative 4 completed AMISHA GUERRA, [address], [address], [facility] 10/04/2022 07:54:30 Influenza, split virus, trivalent, PF 5 completed AMISHA GUERRA, [facility] [address] [place] [address], [address], [facility] 10/04/2022 07:54:30 Hep B, adult 4 completed AMISHA GUERRA, [address], [address], [facility] 10/04/2022 07:54:30 Hep B, adult 3 completed AMISHA GUERRA, [address], [address], [facility] 10/04/2022 07:54:30 Hep B, adult 3 completed AMISHA GEURRA, [address], [address], [facility] 10/04/2022 07:54:30 Hep A, adult 4 completed AMISHA GUERRA, [address], [address], [facility] 10/04/2022 07:54:30 Hep A, adult 1 vandana GUERRA, [address], [address], [facility] 03/13/2025 10:46:14 Influenza, split virus, quadrivalent, PF 1 vandana GUERRA, [address], [address], [facility] 03/13/2025 10:46:14 Past Encounters Encounter ID Performer Location Encounter Start Date Encounter Closed Date Diagnosis/Indication Diagnosis SNOMED-CT Code Diagnosis ICD10 Code Diagnosis IMO Codes Diagnosis Note [id number] AMISHA GUERRA, [facility] [address] [place] [address] 03/13/2025 09:43:59 03/13/2025 11:30:48 Benign hypertension 71522381 I10 Continue current medication . Type 2 francisca betes mellitus 52773915 E11.22 A1C creeping up. Will check A1C today. 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 [id number] 02428 [id number].[id number] Administra tion of influenza vaccine 32673646 Z23 Nasal congestion 1965995 0 R09.81 75669 Recurrent urinary tract infection 017530651 N39.0 665083 General ex amination of patient 287718316 Z00.00 [id number] Health Concerns Section Related Observation LastModified by Organization Detai ls LastModified Time None Recorded Concern Status LastModified by Organization Details LastModified Time None Recorded Payers Encounter Date Sequence Insurance Name Policy Number Policy May Covered Member ID May Member ID Guarantor Name 03/13/2025 1 [facility] (MEDICARE REPLACEMENT/A DVANTAGE - PPO) [id number] Kadi Hernandez [id number] Kadi Hernandez Notes Date Note Type Note [...] breathandno chest pain. AMISHA GUERRA, [facility] [address] [place], [address], [facility] 03/13/2025 11:03:32 OBGyn Episode No OBEpisode recorded.
--- OUTSIDE RECORDS SUMMARY | 2025-04-05 22:37 | XMS_ITS | Encounter Summary ---
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
--- OUTSIDE RECORDS SUMMARY | 2025-04-05 22:37 | XMS_ITS | Encounter Summary ---
Author Organization [facility] Address [address] [place] [address] Care Team Providers Care Bracelet Maker Novelty Name Role Phone Unavailable Primary Care Provider Unavailabl e Encounter Details Date Type Department Care Team (Late st Contact Info) Description 05/24/2006 Outpatient [facility] [address] [place] [address] Benny Asif DO [address] [place] [phone] Routine Medical Exam (Primary Dx); Abnormal Involuntary Movements; Pure Hypercholesterolem; Vaccine for influenza Social History Tobacco Use Types Packs/Day Years Used Date Smoking Tobacco: Never Assessed Comments Unknown Sex and Gender Information Value Date Recorded Sex Assigned at Not on file 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
--- OUTSIDE RECORDS SUMMARY | 2025-04-05 22:37 | XMS_ITS | Encounter Summary ---
Author Organization 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
[2025-04-05 22:38] VITALS: BP 181/72; PULSE 86; RESP 18; TEMP 36.7; O2SAT 98; BMI 42.0
--- NOTE | 2025-04-05 23:12 | W.ED.GENADLT ---
HPI - General Adult General: Chief complaint: General Medical Stated complaint: fainted, blood in urine. severe head pain Time Seen by Provider: 04/05/25 22:41 History of Present Illness: Patient is an 80-year-old female presenting with blood in her urine, dysuria, and headache. She reports painful urination and increased urinary frequency. The patient has a history of recurrent UTIs over the past year, with the most recent episode requiring antibiotic therapy. Previous urine culture reportedly grew bacteria that were difficult to treat, requiring a change in antibiotics. Patient was initially prescribed one antibiotic, but it was changed after 2-3 days to a different one, which she took for 7 days. She also reports severe headache with constant tinnitus. Patient denies fever but mentions experiencing dizziness over the last couple of days and a possible syncopal episode where she fell onto her bed. She has been using a walker recently due to dizziness. The patient was previously prescribed diazepam for tremor, which reportedly helped with her symptoms. The patient's caregiver notes that seeing blood in her urine has caused significant anxiety for the patient. Related Data Home Medications ?Medication ?Instructions ?Recorded ?Confirmed fluticasone propionate 50 2 spray intranasal DAILY PRN 09/15/21 01/24/25 mcg/actuation nasal Allergy Symptoms spray,suspension (Flonase Allergy Relief) atorvastatin 20 mg tablet 20 mg PO BEDTIME 07/29/23 01/24/25 donepezil 10 mg tablet 10 mg PO DAILY 11/02/23 01/24/25 cholecalciferol (vitamin D3) 1,250 50,000 unit PO Q7D 04/21/24 01/24/25 mcg (50,000 unit) capsule rivaroxaban 20 mg tablet (Xarelto) 20 mg PO QAM 06/02/24 01/24/25 albuterol sulfate 90 mcg/actuation 2 puff inhalation Q6H 09/07/24 01/24/25 aerosol inhaler (Ventolin HFA) amiodarone 200 mg tablet 200 mg PO DAILY 09/07/24 01/24/25 budesonide-formoterol HFA 160 2 puff inhalation BID 09/07/24 01/24/25 mcg-4.5 mcg/actuation aerosol inhaler (Symbicort) icosapent ethyl 1 gram capsule 1 g PO DAILY 05/03/25 09/19/25 (Vascepa) estradiol 0.01% (0.1 mg/gram) See Rx Instructions .Route .COMPLEX 01/24/25 01/24/25 vaginal cream ketoconazole 2 % shampoo See Rx Instructions .Route .COMPLEX 01/24/25 01/24/25 vitamins with calcium 1 tab PO DAILY 01/24/25 01/24/25 no.72-iron 27 mg-folic acid 1 mg tablet ( Vitamins Plus Low Iron) Previous Rx's ?Medication ?Instructions ?Recorded isosorbide mononitrate 60 mg 60 mg PO QAM #100 tabs 05/13/24 tablet,extended release 24 hr hydralazine 25 mg tablet 25 mg PO BID #180 tabs 08/16/24 meclizine 12.5 mg tablet 12.5 mg PO TID PRN dizziness #20 09/16/24 tabs alprazolam 0.5 mg tablet 0.5 mg PO BID PRN stress 30 days 11/28/24 #60 tabs losartan 50 mg tablet 25 mg (1/2 x 50 mg) PO DAILY #180 01/25/25 tabs alprazolam 0.5 mg tablet 0.5 mg PO .Nightly PRN anxiety #10 04/06/25 tabs doxycycline hyclate 100 mg tablet 100 mg PO BID 10 days #20 tabs 04/06/25 Allergies Allergy/AdvReac Type Severity Reaction Status Date / Time lisinopril Allergy coughing Verified 04/05/25 22:42 [facility] PFSH: Medical History Dizziness of unknown cause Reactive airway disease Memory loss UTI (urinary tract infection) Benign positional vertigo Benign hypertension Atrial fibrillation with rapid ventricular response Hypertriglyceridemia Exertional shortness of breath Hypertensive urgency Hypertension Generalized weakness Chest pain UTI (urinary tract infection) Bradycardia CAD (coronary artery disease) Dizziness Atrial fibrillation Essential tremor Generalized weakness Lactic acidosis Acute metabolic encephalopathy Sepsis Atrial fibrillation Urinary tract infection Elevated blood pressure reading Palpitation HTN (hypertension) Gout Dyslipidemia Melanoma Surgical History Hx of cataract extraction History of cholecystectomy Status post laparoscopic cholecystectomy (03/30/20) History of removal of ovarian cyst History of carpal tunnel release S/P complete hysterectomy H/O esophagogastroduodenoscopy 1977 H/O colonoscopy 2017 Family History Mother Melanoma Diabetes Stroke Father CAD (coronary artery disease) unknown age of onset, [place] at 62 Cancer Family/Other Cancer Grandmother Cancer Brother Diabetes Denies family history of Clotting disorder Dementia Chronic kidney disease (CKD) Suicide Anesthesia complication Bleeding disorder Lung disease Social History Smoking and tobacco/nicotine status: never used tobacco/nicotine Alcohol intake: never Substance/Drug Use: never Additional social history: She worked at a [employer] in [place] for years then met her who 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 Patient states she wants DNR status as discussed on 01/24/2025. Patient states that her mother needed CPR that she requested and never did think right after that Household members: spouse Marital status: Current occupational status: retired Physical Exam Const: COMMON NORMALS: no acute distress and alert GENERAL APPEARANCE: cooperative and frail appearing (Mildly); not ill appearing HENMT: COMMON NORMALS: normocephalic, atraumatic and Normal external nose present HEAD & SCALP: normocephalic and atraumatic FACE & SINUS: normal facial exam and face symmetric NOSE: Normal external nose present Eye: COMMON NORMALS: Equal, round and reactive pupils present and EOMs intact bilaterally PUPIL: Yes Equal, round and reactive pupils present Neck/C-Spine: GENERAL: Yes trachea midline Chest: CHEST: Yes Symmetrical chest wall rise Resp: COMMON NORMALS: normal respiratory effort, No retractions, No use of accessory muscles and clear to auscultation bilaterally AUSCULTATION: clear to auscultation bilaterally Cardio: COMMON NORMALS: regular rate and regular rhythm RATE: regular rate RHYTHM: regular rhythm GI: COMMON NORMALS: Normal to inspection, nondistended, normoactive bowel sounds present Extremity: COMMON NORMALS: no pedal edema Neuro: JAYESH COMA SCALE: document GCS findings [place] coma scale eye opening: Spontaneous Jayesh coma scale verbal response: Orientated Jayesh coma scale motor response: Obey commands Jayesh coma scale total score: 15 SENSORIUM/ORIENTATION: Yes alert SENSORY EXAM: Yes extremities (intact) Psych: COMMON NORMALS: speech normal SPEECH: Yes normal speech Skin: COMMON NORMALS: no rashes or lesions noted GENERAL SKIN EXAM: no rashes or lesions noted Course Vital Signs: Vital signs: Vital Signs Temperature 98.1 F 04/05/25 22:38 Pulse Rate 80 04/06/25 01:13 Respiratory Rate 18 04/05/25 22:38 Blood Pressure 181/72 04/05/25 22:38 Pulse Oximetry 91 04/06/25 01:13 Oxygen Delivery Me thod Room Air 04/06/25 00:43 MDM - General Adult Medical Decision Making Patient has a significant tremor. Otherwise exam is nonacute. She is hypertensive. Otherwise vitals are stable. CBC BMP are not remarkable. Creatinine is 1.2 and is near baseline. CRP is 10. She does have continued evidence of urinary tract infection with 21-50 whites 2+ leukocyte esterase, and continued hematuria. She had a CT scan of the abdomen pelvis on her last visit that did not show any renal stones or mass or obstruction. Lactic acid is 2.8 which is stable from prior. She received a small dose of Ativan here which seemed to help with her symptoms of tremor and anxiety. Previous urine culture grew Citrobacter and Enterococcus. Both seem to be sensitive to tetracycline, and she has not been on this medication. Other antibiotics showed no contiguous sensitivity between the 2 organisms. She will be placed on doxycycline for a prolonged course. She stable for discharge at this point. To return for any worsening symptoms will discontinue the Valium. Placed her on a small dose of Xanax, as it may help her anxiety. Lab Data 04/05/25 23:18 04/05/25 23:18 Laboratory Results WBC 7.64 10^3/uL (3.29-11.43) 04/05/25 23:18 RBC 4.06 10^6/uL (3.85-5.65) 04/05/25 23:18 Hgb 11.50 g/dL (11.27-16.99) 04/05/25 23:18 Hct 37.7 % (36-47) 04/05/25 23:18 MCV 92.9 fl (85-98) 04/05/25 23:18 MCH 28.3 pg (27-33) 04/05/25 23:18 MCHC 30.5 g/dL (30-55) 04/05/25 23:18 RDW 15.7 % (12.1-15.1) H 04/05/25 23:18 Plt Count 251 10^3/cmm (157-399) 04/05/25 23:18 MPV 10.8 fL (7.4-10.4) H 04/05/25 23:18 Neut % (Auto) 62.9 % 04/05/25 23:18 Lymph % (Auto) 20.7 % 04/05/25 23:18 [place] % (Auto) 10.3 % 04/05/25 23:18 Eos % (Auto) 4.6 % 04/05/25 23:18 Baso % (Auto) 1.2 % 04/05/25 23:18 Neut # (Auto) 4.81 10^3/uL (1.8-7.7) 04/05/25 23:18 Lymph # (Auto) 1.6 10^3/uL (0.8-4.8) 04/05/25 23:18 [place] # (Auto) 0.8 10^3/uL (0.2-0.9) 04/05/25 23:18 Eos # (Auto) 0.4 10^3/uL (0.0-0.8) 04/05/25 23:18 Baso # (Auto) 0.1 10^3/uL (0.0-0.1) 04/05/25 23:18 Nucleated RBC % (auto) 0 % 04/05/25 23:18 Nucleated RBCs # 0.0 /100WBC 04/05/25 23:18 PT 17.80 SECONDS (12.1-14.9) H 04/05/25 23:18 INR 1.37 (0.8-1.2) H 04/05/25 23:18 APTT 32.2 SECONDS (23.9-36.7) 04/05/25 23:18 Sodium 141 mmol/L (136-145) 04/05/25 23:18 Potassium 3.9 mmol/L (3.5-5.1) 04/05/25 23:18 Chloride 100 mmol/L (98-107) 04/05/25 23:18 Carbon Dioxide 28 mmol/L (22-29) 04/05/25 23:18 Anion Gap 16.9 (5-19) 04/05/25 23:18 BUN 15 mg/dL (8-23) 04/05/25 23:18 Creatinine 1.2 mg/dL (0.5-0.9) H 04/05/25 23:18 GFR Calculation Not Reportable 04/05/25 23:18 Glucose 204 mg/dL (65-115) H 04/05/25 23:18 Calculated Osmolality 299 mOsm/kg (285-295) H 04/05/25 23:18 Lactic Acid 2.8 mmol/L (0.5-2.2) H 04/05/25 23:18 Calcium 10.2 mg/dL (8.5-10.5) 04/05/25 23:18 Magnesium 1.8 mg/dL (1.7-2.3) 04/05/25 23:18 Total Bilirubin 0.3 mg/dL (0.15-1.2) 04/05/25 23:18 AST 75 U/L (0-32) H 04/05/25 23:18 ALT 57 U/L (0-33) H 04/05/25 23:18 Alkaline Phosphatase 65 U/L (35-105) 04/05/25 23:18 C-Reactive Protein 10.4 mg/L (0.0-4.9) H 04/05/25 23:18 Total Protein 7.9 g/dL (6.6-8.7) 04/05/25 23:18 Albumin 3.9 g/dL (3.5-5.2) 04/05/25 23:18 Globulin 4.0 g/dL (1.3-4.6) 04/05/25 23:18 Urine Color Red (Yellow) A 04/05/25 23:41 Urine Appearance Turbid (CLEAR) A 04/05/25 23:41 Urine pH 5.0 (5-7) 04/05/25 23:41 Ur Specific Shirley 1.021 (1.005-1.030) 04/05/25 23:41 Urine Protein 2+ (Negative) A 04/05/25 23:41 Urine Glucose (UA) Negative (Normal) 04/05/25 23:41 Urine Ketones Negative (Negative) 04/05/25 23:41 Urine Blood 2+ (Negative) A 04/05/25 23:41 Urine Nitrate Positive (Negative) A 04/05/25 23:41 Urine Bilirubin 1+ (Negative) H 04/05/25 23:41 Urine Urobilinogen 0.2 mg/dL (Negative) 04/05/25 23:41 Ur Leukocyte Esterase 2+ (Negative) A 04/05/25 23:41 Urine RBC >100 /hpf (0-2) H 04/05/25 23:41 Urine WBC 21-50 /hpf (0-5) H 04/05/25 23:41 Ur Squamous Epith Cells 6-10 /hpf (0-5) 04/05/25 23:41 Calcium Oxalate Crystal 0-4 /hpf H 04/05/25 23:41 Amorphous Sediment Not Reportable 04/05/25 23:41 Urine Bacteria None seen /hpf (NONE) 04/05/25 23:41 Hyaline Casts 0-4 /lpf H 04/05/25 23:41 No radiology studies performed this visit Discharge Plan Discharge Patient Disposition: Home Clinical Impression: Urinary tract infection Qualifiers: Urinary tract infection type: acute cystitis Hematuria presence: with hematuria Qualified Code(s): N30.01 - Acute cystitis with hematuria Condition: Stable Prescriptions: New doxycycline hyclate 100 mg tablet 100 mg PO BID 10 Days Qty: 20 0RF alprazolam 0.5 mg tablet 0.5 mg PO .Nightly PRN (Reason: anxiety) Qty: 10 0RF Discontinued diazepam [Valium] 2 mg tablet 2 mg PO BID PRN (Reason: muscle spasm) Qty: 8 0RF No Action fluticasone propionate [Flonase Allergy Relief] 50 mcg/actuation spray,suspension 2 spray intranasal DAILY PRN (Reason: Allergy Symptoms) Rx Instructions: administer into each nostril isosorbide mononitrate 60 mg tablet extended release 24 hr 60 mg PO QAM Qty: 100 3RF hydralazine 25 mg tablet 25 mg PO BID Qty: 180 2RF alprazolam 0.5 mg tablet 0.5 mg PO BID PRN (Reason: stress) 30 Days Qty: 60 0RF atorvastatin 20 mg tablet 20 mg PO BEDTIME cholecalciferol (vitamin D3) 1,250 mcg (50,000 unit) capsule 50,000 unit PO Q7D Rx Instructions: Monday Xarelto 20 mg tablet 20 mg PO QAM albuterol sulfate [Ventolin HFA] 90 mcg/actuation HFA aerosol inhaler 2 puff INHALATION Q6H budesonide-formoterol [Symbicort] 160-4.5 mcg/actuation HFA aerosol inhaler 2 puff INHALATION BID amiodarone 200 mg tablet 200 mg PO DAILY Rx Instructions: TAKE 1 TABLET BY MOUTH EVERY DAY icosapent ethyl [Vascepa] 1 gram capsule 1 g PO DAILY Rx Instructions: take 1 capsule BY MOUTH EVERY DAY meclizine 12.5 mg tablet 12.5 mg PO TID PRN (Reason: dizziness) Qty: 20 0RF donepezil 10 mg tablet 10 mg PO DAILY ketoconazole 2 % shampoo See Rx Instructions .ROUTE .COMPLEX Rx Instructions: shampoo SCALP 1-2 times a week NEEDED. let sit ON SCALP FOR FIVE minutes before rinsing estradiol 0.01 % (0.1 mg/gram) cream See Rx Instructions .ROUTE .COMPLEX Rx Instructions: USE DIRECTED VAGINALLY TWICE A WEEK Vitamin Plus Low Iron 27 mg iron- 1 mg tablet 1 tab PO DAILY losartan 50 mg tablet 25 mg PO DAILY Qty: 180 3RF Discharge Orders: Discharge ED (Routine); Ordered 04/06/25 Ordered By: Tor Heard Referrals: Bonnie Fleming, HOSPITALITY HOUSE SUPERVISOR [Primary Care Provider, Unknown] - 4-7 days Patient Instructions: Anxiety (ED), Urinary Tract Infection in Older Adults (ED), Opioid Safety, Pain Management, Patient Portal & Francesca Instructions Activity Restrictions/Additional Instructions: Antibiotics as directed. It is imperative that you follow-up with your primary care doctor. Call Monday for an appointment. Your urine must be retested in several days to ensure you are clearing the infection. Take medication only as needed for anxiety at night. Do not use this in conjunction with diazepam. Return for problems. Print Language: Qatari Coding Level of Care Code ED Stewarding Supervisor for Hakeem Sebastian
[2025-04-05 23:36] LABS: Hematocrit 37.7 % (36-47); Hemoglobin 11.50 g/dL (11.27-16.99); Mean Corpuscular HGB Conc 30.5 g/dL (30-55); Mean Corpuscular Hemoglobin 28.3 pg (27-33); Mean Corpuscular Volume 92.9 fl (85-98); Nucleated Red Blood Cells % 0 %; Platelet Count 251 10^3/cmm (157-399); Red Blood Count 4.06 10^6/uL (3.85-5.65); White Blood Count 7.64 10^3/uL (3.29-11.43)
[2025-04-05 23:41] LABS: INR 1.37 (0.8-1.2); Prothrombin Time 17.80 SECONDS (12.1-14.9)
[2025-04-05 23:42] LABS: Partial Thromboplastin Time 32.2 SECONDS (23.9-36.7)
[2025-04-05 23:50] LABS: Alanine Aminotransferase 57 U/L (0-33); Albumin Level 3.9 g/dL (3.5-5.2); Alkaline Phosphatase 65 U/L (35-105); Anion Gap 16.9 (5-19); Aspartate Amino Transferase 75 U/L (0-32); Blood Urea Nitrogen 15 mg/dL (8-23); Calcium 10.2 mg/dL (8.5-10.5); Carbon Dioxide 28 mmol/L (22-29); Chloride 100 mmol/L (98-107); Creatinine Clr Calc Pharmacy 42.3763; Globulin 4.0 g/dL (1.3-4.6); Glucose 204 mg/dL (65-115); Magnesium 1.8 mg/dL (1.7-2.3); Osmolality Calculated 299 mOsm/kg (285-295); Potassium 3.9 mmol/L (3.5-5.1); Sodium 141 mmol/L (136-145); Total Protein 7.9 g/dL (6.6-8.7)
[2025-04-05 23:50] LABS: Glucose Urine UA Negative (Normal); Nitrate Urine Positive (Negative); Specific Gravity, Urine 1.021 (1.005-1.030)
[2025-04-05 23:51] LABS: Lactic Sepsis W/Reflex 2.8 mmol/L (0.5-2.2)
[2025-04-05 23:54] LABS: Add Urine Microscopic? YES; Universal Test for UA Present (0)
[2025-04-06 00:43] VITALS: PULSE 74; O2SAT 90
[2025-04-06 01:09] LABS: Reflex Lactate Order REFLEX LACTIC ORDERD
[2025-04-06 01:13] VITALS: PULSE 80; O2SAT 91
== END 2025-04-06 01:14 | disposition home or self-care (01) ==
PROVIDERS: Emergency Provider Emergency Medicine; PCP Nurse Practitioner Family
DX: N30.01 Acute cystitis with hematuria (principal); I10 Essential (primary) hypertension; I25.10 Atherosclerotic heart disease of native coronary artery without angina pectoris; E78.5 Hyperlipidemia, unspecified
CPT/HCPCS: 36415; 80053; 81001; 83605; 83735; 85025; 85610; 85730; 86140; 87086; 99284; J9999

== ENCOUNTER → 2025-04-07 14:20 | Outpatient (BNVA) | payer MEDICARE, SELFPAY | PROVIDERS: PCP Nurse Practitioner Family; Visit Provider Internal Medicine | DX: I48.91 Unspecified atrial fibrillation (principal); Z79.01 Long term (current) use of anticoagulants; I10 Essential (primary) hypertension; Z95.818 Presence of other cardiac implants and grafts | CPT/HCPCS: 99214 ==

== ENCOUNTER → 2025-04-14 10:25 | Outpatient (BNVA) | payer MEDICARE, SELFPAY | PROVIDERS: PCP Nurse Practitioner Family; Visit Provider Nurse Practitioner Family | DX: L40.8 Other psoriasis (principal); L82.1 Other seborrheic keratosis; L57.8 Other skin changes due to chronic exposure to nonionizing radiation; L85.3 Xerosis cutis; Z85.820 Personal history of malignant melanoma of skin; Z08 Encounter for follow-up examination after completed treatment for malignant neoplasm; Z85.828 Personal history of other malignant neoplasm of skin | CPT/HCPCS: 99214 ==